=== PATIENT | female | born 1940 | race Caucasian/White ===

== ENCOUNTER 2019-09-02 11:36 | Inpatient (IN) | payer MEDICARE, SELFPAY ==
[2019-09-02] VITALS (29 sets, daily range): BP systolic 112–175; BP diastolic 62–95; PULSE 78–108; RESP 16–29; TEMP 36.1–37.5; O2SAT 74–100; BMI 64.1
--- NOTE | ~2019-09-02 | XR_ITS ---
EXAMINATION: XR chest 1V portable EXAM DATE: 09/02/2019 12:17 INDICATION: Shortness of breath, cough, wheezing. TECHNIQUE: Portable AP frontal chest x-ray was obtained. There is no prior study for comparison. FINDINGS: There is cardiomegaly and congestion. Rather extensive abnormal reticulation, appearance mo st consistent with pulmonary edema. Clinical correlation for possible CHF exacerbation. Small pleural effusions. Pneumonia not excludable. No pneumothorax. There are bony degenerative changes. IMPRESSION: 1. Findings suspicious for CHF exacerbation. 2. Pneumonia not excludable. Reviewed, dictated and finalized at location B.
--- NOTE | ~2019-09-02 | US_ITS ---
EXAMINATION:US venous doppler LE BI INDICATION:Leg edema TECHNIQUE: Multiple grayscale, color flow and Doppler images of the lower extremity deep venous syste ms were obtained and reviewed. COMPARISON:No prior studies for comparison. FINDINGS: The common femoral, superficial femoral and popliteal veins demonstrate normal respiratory variation, augmentation and compressibility. Color flow is also seen within the posterior tibial, gr eater saphenous and profunda veins. Peroneal veins not visualized due to body habitus. IMPRESSION: 1: No lower extremity deep venous thrombosis. Reviewed, dictated and finalized at location A.
--- NOTE | 2019-09-02 11:47 | ECG_ITS ---
Measurements Intervals [place] Rate: 103 P: 66 LA: 127 QRS: 68 QRSD: 88 T: 44 QT: 315 QTc: 414 Interpretive Statements SINUS TACHYCARDIA DELAYED PRECORDIAL R/S TRANSITION BASELINE WANDER- I, II, AVR, AVL, AVF ABNORMAL ECG Electronically Signed On 09-02-2019 12:08:20 CDT by Nick Arreola D.O.
[2019-09-02 12:11] LABS: Basophils Percent Auto 0.4 % (0.2-1.2); Eosinophils Absolute Auto 0.4 K/mm3 (0-0.3); Eosinophils Percent Auto 3.8 % (0-4.4); Hematocrit 36.4 % (37.0-47.0); Hemoglobin 10.4 g/dL (12.0-15.0); Immature Granulocyte Absolute 0.05 K/mm3 (0.00-0.031); Immature Granulocyte Percent A 0.5 % (0-0.5); Lymphocytes Absolute Auto 0.98 K/mm3 (0.9-3.2); Lymphocytes Percent Auto 9.8 % (18.3-44.2); Mean Corpuscular HGB Conc 28.6 g/dl (32-36); Mean Platelet Volume 9.3 fl (7.4-10.4); Monocytes Absolute Auto 0.7 K/mm3 (0.1-0.6); Monocytes Percent Auto 6.5 % (2.6-8.5); Neutrophils Absolute Auto 7.9 K/mm3 (1.3-6.7); Nucleated Red Blood Cells Absolute Auto 0.1 K/mm3 (0.0-0.012); Nucleated Red Blood Cells Perc 0.8 % (0.0-0.2); Platelet Count Result 306 k/mm3 (150-375); Red Cell Distribution Width 18.1 % (11.5-14.5)
[2019-09-02 12:20] LABS: Lactic Acid Reflex 1.7 mmol/L (0.7-2.1)
[2019-09-02 12:23] LABS: Hypochromasia 1+ (NORMAL); Platelet Estimate Adequate (Adequate)
[2019-09-02 12:24] LABS: Anisocytosis 1+ (NORMAL); Stomatocytes 1+ (NORMAL)
[2019-09-02 12:28] LABS: Blood Urea Nitrogen 19 mg/dL (7-17); Calcium 8.6 mg/dL (8.4-10.2); Carbon Dioxide 37 mmol/L (22-30); Chloride 94 mmol/L (98-107); Estimated Glomerular Filt Rate > 60; Glucose 122 mg/dL (65-105); Potassium 5.3 mmol/L (3.4-5.0); Sodium 137 mmol/L (137-145)
[2019-09-02 12:29] LABS: NT Pro B Type Natriuretic Pept 6080 PG/ML (5-100)
[2019-09-02 12:35] LABS: Troponin I 0.085 ng/mL (0.000-0.034)
[2019-09-02] MEDS: FUROSEMIDE INJ 40 MG/4 ML VIAL IV PUSH ×2 (12:55→20:56)
--- NOTE | 2019-09-02 14:07 | ED.SOB ---
HPI - SOB/Dyspnea General Chief Complaint: Shortness of Breath/Dyspnea Stated Complaint: SOB Time Seen by Provider: 09/02/19 11:43 History of Present Illness HPI Narrative: Patient is a 78-year-old female who presents the ER with shortness of breath. Found to be hypoxic by EMS and 74% on room air. Placed on nasal cannula is doing better. She no longer feels short of breath. Patient has history of COPD and has been using breathing treatments without improvement. Patient is also on diuretics, reports compliance, no new swelling in her legs. Recently diagnosed with cellulitis in her left lower extremity which is been treated and she is wearing wraps. Sees Dr. Skip Addison heart and vascular. Known aortic valve issues. Related Data Home Medications Medication Instructions Recorded Confirmed Multi-Tong 09/02/19 [id number]-copper-kathi tablet PO 09/02/19 carvedilol 12.5 mg PO Q12H 09/02/19 duloxetine 30 mg PO DAILY 09/02/19 enalapril maleate 2.5 mg PO DAILY 09/02/19 furosemide 40 mg PO DAILY 09/02/19 glucosamine-chondroitin [Osteo tablet 09/02/19 Bi-Flex] hydrocodone-acetaminophen [[place]] 1 tablet PO Q6H PRN 09/02/19 polysaccharide iron complex mg 09/02/19 [Ferrex 150] Allergies Allergy/AdvReac Type Severity Reaction Status Date / Time pregabalin [From Lyrica] Allergy Unknown Verified 09/02/19 11:45 Sulfa (Sulfonamide Allergy Unknown Verified 09/02/19 11:45 Antibiotics) phenytoin [From Dilantin] AdvReac Unknown Verified 09/02/19 11:45 Review of Systems Review of Systems: All systems reviewed & are unremarkable except as noted in HPI and below Constitutional: Constitutional: Denies chills, Denies fatigue and Denies fever(s) Cardiovascular: Cardiovascular: Denies chest pain and Denies rapid heart rate Respiratory: Respiratory: Reports cough (Chronic), Reports dyspnea and Reports wheezing PMFSH Past Medical History Medical History (Updated 09/02/19 @ 14:50 by Blue Bryan MD) Aortic stenosis Brain aneurysm History of congestive heart failure Hypertension Surgical History Surgical History (Updated 09/02/19 @ 14:47 by Blue Bryan MD) H/O craniotomy Social History Social History (Updated 09/02/19 @ 14:47 by Blue Bryan MD) Smoking status: Never smoker Exam Narrative: Exam Narrative: GENERAL: Chronically ill-appearing, obese, and in no acute distress. HEAD: Normocephalic, atraumatic. ENT: Mucous membranes moist. CHEST: Mixed rales and wheezing with mild respiratory distress. HEART: Regular rate and rhythm. Normal peripheral pulses. ABDOMEN: Soft, nontender, nondistended. EXTREMITIES: Normal range of motion. Chronic/firm edema. SKIN: Warm, dry, no rash. NEURO: focal deficits. Alert and oriented x3. Course Course Emergency Course: Lasix for diuresis. Tolerating nasal cannula oxygen. Admit to hospitalist service. Vital Signs Vital signs: Vital Signs Temperature 99.5 F 09/02/19 11:32 Pulse Rate 107 H 09/02/19 11:32 Respiratory Rate 28 H 09/02/19 11:32 Pulse Oximetry 74 L 09/02/19 11:32 Temperature 99.5 F 09/02/19 11:43 Pulse Rate 105 H 09/02/19 12:55 Respiratory Rate 17 09/02/19 12:55 Blood Pressure 131/81 09/02/19 12:52 Pulse Oximetry 99 09/02/19 12:55 MDM - SOB/Dyspnea Lab Data Result diagrams: 09/02/19 11:53 09/02/19 11:53 Labs: Lab Results 09/02/19 09/02/19 09/02/19 Range/Units 11:53 11:53 11:53 WBC 10.0 (4.5-10.0) K/mm3 RBC 4.00 L (4.2-5.4) M/mm3 Hgb 10.4 L (12.0-15.0) g/dL Hct 36.4 L (37.0-47.0) % MCV 91.0 (80-100) fl MCH 26.0 (26-34) pg MCHC 28.6 L (32-36) g/dl RDW 18.1 H (11.5-14.5) % Plt Count 306 (150-375) k/mm3 MPV 9.3 (7.4-10.4) fl Immature Gran % (Auto) 0.5 (0-0.5) % Neut % (Auto) 79.0 H (45.5-73.1) % Lymph % (Auto) 9.8 L (18.3-44.2) % [place] % (Auto) 6.5 (2.6-8.5) % Eos % (Auto
--- NOTE | 2019-09-02 17:32 | PC.NURSE ---
dinner tray ordered by this RN,patient's room still not room cleaned in IMU
--- NOTE | 2019-09-02 18:12 | PC.NURSE ---
Unable to obtain 3 hour trop prior to transfer to IMU with 4x attempts, lab called.
[2019-09-02 19:11] LABS: Troponin I 0.095 ng/mL (0.000-0.034)
--- NOTE | 2019-09-02 19:29 | ADMIMU ---
This patient, Dasia Hernandez, was admitted to IMU status, and placed in IMU Room 202-01 on 09/02/19 @ 1817. Patient/family oriented to hospital policies and general routines including ID bracelet, bed and alarms, visiting hours, pain management, procedures, bathroom and other care routines, personal items, smoking policy, room service/diet, and visiting hours. Valuables list has been completed. Information on how to activate the Rapid Response Team has been discussed. Patient/Family are encouraged to report perceived risks to care and to ask questions if they do not understand what they are told or what they should do.
--- NOTE | 2019-09-02 19:33 | PC.NURSE ---
Patient to floor at 1817 via stretcher. Oxygen at 6L and monitor intact. Wound photos taken on admission. Patient alert and oriented. Lungs sounds diminished throughout. Bowel sounds present in all quadrants. IV's x2 intact. Patient SR on monitor. Patient denies complaints at this time, will continue to monitor.
[2019-09-02] MEDS: ALBUTEROL SULFATE NEB 2.5 MG/0.5 ML INH 5 MG INHALATION (19:38)
[2019-09-02] MEDS: IPRATROPIUM BR 0.02% INH SOLN 0.5 MG/2.5 ML VIAL INHALATION (19:39)
[2019-09-02 21:04] LABS: Glucose Point of Care 151 (65-105)
[2019-09-02 21:05] LABS: Alveolar/Arterial O2 Gradient 41.4 mmHg; Base Excess ABG 8.5 mEq/l (+/-2.0); Carboxyhemoglobin 0.3 % THb (0-2.0); Fractional Inspired Oxygen 36 %; HCO3 ABG 38.4 mEq/l (22.0-26.0); Methemoglobin ABG 0.6 %THb (0-1.5); Oxyhemoglobin 96.1 % THb (90.0-100.0); PO2 ABG 110.5 mmHg (80.0-100.0); PO2 FiO2 Ratio Arterial Blood 3.07 %
[2019-09-02 21:07] LABS: Device NASAL CANNULA; Modified Allen's Test Pass; PCO2 ABG 90.3 mmHg (35.0-45.0); Site Drawn RIGHT RADIAL; pH ABG 7.247 (7.350-7.450)
[2019-09-02 21:08] LABS: Troponin I 0.088 ng/mL (0.000-0.034)
[2019-09-02 22:56] LABS: Alveolar/Arterial O2 Gradient 40.7 mmHg; Base Excess ABG 9.5 mEq/l (+/-2.0); Carboxyhemoglobin 0.2 % THb (0-2.0); Fractional Inspired Oxygen 30 %; HCO3 ABG 38.4 mEq/l (22.0-26.0); Methemoglobin ABG 0.6 %THb (0-1.5); Modified Allen's Test Pass; Oxygen Saturation ABG 93.4 % (95.0-100.0); Oxyhemoglobin 93.1 % THb (90.0-100.0); PCO2 ABG 81.3 mmHg (35.0-45.0); PO2 ABG 77.7 mmHg (80.0-100.0); PO2 FiO2 Ratio Arterial Blood 2.59 %; Reduced Hemoglobin 6.1 %THb (0-5.0); Site Drawn LEFT RADIAL; Total Hemoglobin 10.6 g/dL (12.0-18.0); pH ABG 7.292 (7.350-7.450)
[2019-09-02 22:57] LABS: Device NON-INVASIVE VENT
[2019-09-02 22:58] LABS: Non-Invasive Inspiratory Pressure 16 CMH2O; Non-Invasive Vent Rate 18 /MIN
[2019-09-02 22:59] LABS: Non-Invasive Expiratory Pressure 6 CMH2O
--- NOTE | 2019-09-02 23:20 | PM.IMHP ---
H&P: HPI History of Present Illness Chief complaint: Shortness of breath. Narrative: Dasia Hernandze is a 78-year-old female with multiple medical problems to include morbid obesity, congestive heart failure, hypertension, aortic valve stenosis, hypothyroidism, anemia, and COPD who presented to the emergency department earlier this afternoon via EMS from home for evaluation of shortness of breath. She is a resident at [facility] in [place], and EMS was called as the patient has had progressive dyspnea on lesser and lesser exertion over the past 2 days, worse overnight. On their arrival, she was hypoxic and speaking in 1 to 2 word sentences, reportedly in a tripod position with pursed lipped breathing and struggling to breathe. She was placed on a non-rebreather and was given Decadron. It is at that time that she reportedly requested to come to [facility] although she has never been seen at this facility and gets all of her care in [place] and at [facility]. That hospital was bypassed (although it was a closer facility) despite her respiratory distress and an SpO2 in the 70s, and she was brought here. At the time of my evaluation she is very somnolent and a recent blood gas demonstrates hypercarbia. From what limited information that I can gather from her, she has no history of obstructive sleep apnea but it sounds as though she will frequently become confused in the middle of the night and it takes her a while ?come to? in the morning. After she had been on BiPAP for some time, she became a bit more awake and was able to tell me that she was recently diagnosed with left lower extremity cellulitis for which she completed a course of antibiotics. She also tells me that she has COPD and despite using her breathing treatments the past day or so, she has become increasingly short of breath. It sounds as though she has chronic orthopnea, which is unchanged. She frequently has a cough which is nonproductive. She has not had fever, chills, or sweats. She denies chest pain, pleuritic pain, and palpitations. No nausea or vomiting. No calf pain or tenderness. No history of venous thromboembolism. Review of Systems Review of Systems: Narrative: Twelve systems were reviewed with pertinent positives and negatives as per HPI. Somewhat limited given her somnolence and hypercarbia, but except as documented all other systems were reviewed and are negative. [facility] Past Medical History Medical History (Updated 09/02/19 @ 23:59 by Nadine Ross PA-C) Aortic stenosis Reportedly she has severe aortic stenosis and is followed by a warehouse traffic supervisor in [place]. Apparently she has been deemed not a surgical candidate at this time due to her other medical conditions. Brain aneurysm Chronic obstructive pulmonary disease Congestive heart failure Depression with anxiety Hypertension Hypothyroidism Iron deficiency anemia Morbid obesity Surgical History Surgical History (Updated 09/02/19 @ 23:47 by Nadine Ross PA-C) History of craniotomy Either for an aneurysm or AVM, was difficult to understand what she was saying. History of hysterectomy Family History Family History Father Acute myocardial infarction Social History Social History (Updated 09/02/19 @ 23:48 by Nadine Ross PA-C) Social History: The patient lives at [facility] in [place]. 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 She used to ?smoke a lot? and quit several years ago. She denies alcohol and illicit substance use. Her son, Bal Hernandez, is her surrogate decision maker. She wishes to be a full code. Substance use type: unknown Gender identity (if verbalized by the patient): Female Sexual Orientation (if Verbalized by the Patient): Straight or Heterosexual Spiritual care concerns: No Meds Home Medications and Allergies Home Medications Medicati
[2019-09-02 23:51] LABS: Alanine Aminotransferase 26 U/L (4-35); Albumin Level 3.3 g/dL (3.5-5.1); Alkaline Phosphatase 64 U/L (38-126); Aspartate Amino Transferase 34 U/L (14-36); Bilirubin,Total 0.2 mg/dL (0.2-1.3); Blood Urea Nitrogen 22 mg/dL (7-17); Calcium 8.2 mg/dL (8.4-10.2); Carbon Dioxide 36 mmol/L (22-30); Chloride 95 mmol/L (98-107); Estimated Glomerular Filt Rate 54; Glucose 137 mg/dL (65-105); Potassium 5.1 mmol/L (3.4-5.0); Sodium 136 mmol/L (137-145)
[2019-09-03] VITALS (31 sets, daily range): BP systolic 103–127; BP diastolic 41–71; PULSE 71–110; RESP 14–28; TEMP 35.7–36.7; O2SAT 91–99
--- NOTE | 2019-09-03 | ECHO_ITS ---
Patient Info Name: Dasia Hernandez Age: 78 years : 1940 Gender: Female Ht: 56 in Wt: 285 lbs BSA: 2.37 m2 HR: 101 bpm BP: 127 / 65 mmHg Heart Rhythm: Tachycardia Technical Quality: Fair Exam Date: 09/03/2019 1:22 PM Exam Location: [facility] Pulmonary Patient Status: Inpatient Admit Date: 09/03/2019 Staff Ordering Physician: Lidia Sarkar PA-C Print Developer: Ramo Hanson RDCS Attending Provider: Lidia Sarkar PA-C Referring Physician: Mello LUNA; Exam Type: CA echo dop color flow w con Study Info Indications I35.0 - Nonrheumatic aortic (valve) stenosis Complete two-dimensional, color flow and Doppler transthoracic echocardiogram is performed with contrast to opacify the left ventricle and to improve the deliniation of the left ventricle endocardial borders. Contrast/Agitated Saline Contrast/Ag. Saline: Definity Amount: 2.00 ml Administered By: Lennie Gillespie RN Existing IV Access: Yes History/Risk Factors Severe ; SOB/NOYOLA, CHF exacerbation, COPD exacerbation, HTN, acute respiratory failure, edema. Summary 1. Technically difficult study, poor image quality. Normal LV size, mild LVH, hyperdynamic LV systolic function, EF more than 70%; grade 1 diastolic dysfunction. Valves are not well visualized. Mitral annular calcification, trivial MR. Aortic valve is not well visualized. Moderate-severe aortic stenosis, valve area 1-1.1 cm2 by Doppler;Vmax 4 m/sec, peak gradient 64, mean gradient 34 mmHg. Tricuspid valve not well visualized. Sinus tachycardia during the study. If clinically appropriate, consider transesophageal echocardiogram to re-evaluate aortic valve anatomy. Left Ventricle Left ventricular chamber dimension is normal. Left ventricular systolic function is normal, estimated at >70%. There is mildly increased left ventricular wall thickness. Left ventricular septal wall motion is normal. The left ventricular diastolic function is grade I diastolic dysfunction. Right Ventricle Right ventricular chamber dimension is normal. Right ventricular systolic function is normal. Left Atria Left atrial chamber dimension is normal. Right Atria Right atrial chamber dimension is normal. Aortic Valve There is moderate to severe aortic valve stenosis with a peak velocity of 402.93 cm/s, mean gradient of 34 mmHg, and aortic valve area of 1.10 cm2. There is no aortic valve regurgitation. Pulmonic Valve The pulmonic valve is not well visualized. Mitral Valve There is no mitral valve stenosis. There is no mitral valve regurgitation. The mitral valve annulus is mildly calcified. Tricuspid Valve The tricuspid valve leaflets are not well visualized. No pulmonary hypertension, estimated pulmonary arterial systolic pressure is Empty. Pericardium/Pleural The pericardium appears epicardial fat pad. There is no pericardial effusion. Inferior Vena Cava Normal inferior vena cava with >50% collapse upon inspiration consistent with Empty right atrial pressure, 5 mmHg. Aorta The aortic root size at the sinus of Valsalva is normal. The prox ascending aorta size is normal. Left Ventricular Outflow Tract Name Value Normal LVOT 2D
[2019-09-03] MEDS: methylPREDNISolone SOD SUCC 125 MG VIAL 60 MG IV PUSH ×5 (00:12→23:31)
[2019-09-03 00:49] LABS: Alveolar/Arterial O2 Gradient 47.4 mmHg; Base Excess ABG 10.8 mEq/l (+/-2.0); Fractional Inspired Oxygen 30 %; HCO3 ABG 39.3 mEq/l (22.0-26.0); Oxygen Content ABG 14.1 %vol (16.0-22.0); Oxygen Saturation ABG 93.2 % (95.0-100.0); Oxyhemoglobin 93.4 % THb (90.0-100.0); Total Hemoglobin 10.7 g/dL (12.0-18.0); pH ABG 7.321 (7.350-7.450)
[2019-09-03 00:52] LABS: Device NON-INVASIVE VENT; Modified Allen's Test Pass; PCO2 ABG 77.9 mmHg (35.0-45.0); Site Drawn RIGHT RADIAL
[2019-09-03 00:53] LABS: Non-Invasive Expiratory Pressure 6 CMH2O; Non-Invasive Inspiratory Pressure 18 CMH2O; Non-Invasive Vent Rate 20 /MIN
[2019-09-03] MEDS: ALBUTEROL SULFATE NEB 2.5 MG/0.5 ML INH 5 MG INHALATION ×4 (01:20→19:22)
[2019-09-03] MEDS: IPRATROPIUM BR 0.02% INH SOLN 0.5 MG/2.5 ML VIAL INHALATION ×4 (01:21→19:23)
[2019-09-03 04:48] LABS: Hematocrit 33.5 % (37.0-47.0); Hemoglobin 9.5 g/dL (12.0-15.0); Mean Corpuscular HGB Conc 28.4 g/dl (32-36); Mean Corpuscular Hemoglobin 26.1 pg (26-34); Mean Platelet Volume 9.4 fl (7.4-10.4); Platelet Count Result 251 k/mm3 (150-375); Red Blood Count 3.64 M/mm3 (4.2-5.4); White Blood Count 8.7 K/mm3 (4.5-10.0)
[2019-09-03 05:02] LABS: Blood Urea Nitrogen 22 mg/dL (7-17); Calcium 8.2 mg/dL (8.4-10.2); Carbon Dioxide 37 mmol/L (22-30); Chloride 95 mmol/L (98-107); Estimated Glomerular Filt Rate 54; Glucose 142 mg/dL (65-105); Potassium 4.8 mmol/L (3.4-5.0); Sodium 136 mmol/L (137-145)
[2019-09-03 09:32] LABS: Base Excess ABG 10.6 mEq/l (+/-2.0); Carboxyhemoglobin 0.3 % THb (0-2.0); Fractional Inspired Oxygen 30 %; HCO3 ABG 37.6 mEq/l (22.0-26.0); Methemoglobin ABG 0.4 %THb (0-1.5); Oxygen Content ABG 14.8 %vol (16.0-22.0); Oxygen Saturation ABG 93.7 % (95.0-100.0); Oxyhemoglobin 93.6 % THb (90.0-100.0); PO2 ABG 71.4 mmHg (80.0-100.0); PO2 FiO2 Ratio Arterial Blood 2.38 %; Reduced Hemoglobin 5.7 %THb (0-5.0); Total Hemoglobin 11.2 g/dL (12.0-18.0); pH ABG 7.391 (7.350-7.450)
[2019-09-03 09:33] LABS: Device NON-INVASIVE VENT; Modified Allen's Test Pass; PCO2 ABG 63.4 mmHg (35.0-45.0); Site Drawn RIGHT RADIAL
[2019-09-03 09:34] LABS: Non-Invasive Expiratory Pressure 6 CMH2O; Non-Invasive Inspiratory Pressure 18 CMH2O; Non-Invasive Vent Rate 20 /MIN
[2019-09-03] MEDS: FUROSEMIDE INJ 40 MG/4 ML VIAL IV PUSH ×2 (10:00→21:08)
--- NOTE | 2019-09-03 11:00 | PC.NURSE ---
Okay per provider to remove Bipap at this time. Patient to wear Bipap at night and as needed.
[2019-09-03] MEDS: ENALAPRIL MALEATE 2.5 MG TABLET PO (11:08)
[2019-09-03] MEDS: POLYSACCHARIDE IRON COMPLEX 150 MG CAPSULE PO (11:08)
[2019-09-03] MEDS: DULoxetine HCL 30 MG CAPSULE.DR PO (11:08)
[2019-09-03] MEDS: carvediloL 12.5 MG TABLET PO ×2 (11:08→21:08)
[2019-09-03] MEDS: LEVOTHYROXINE SODIUM 50 MCG TABLET PO (11:08)
[2019-09-03] MEDS: ACIDOPHILUS/BULGARICUS CHEWABLE TABLET 1 TABLET PO ×2 (11:09→18:17)
--- NOTE | 2019-09-03 11:19 | PM.IMPN ---
Progress Note: A&P Assessment and Plan (1) Acute respiratory failure with hypoxia and hypercarbia: Code(s): J96.01 - Acute respiratory failure with hypoxia; J96.02 - Acute respiratory failure with hypercapnia Status: Acute Assessment and Plan: ABG was ordered as the pt was somnolent and revealed respiratory acidosis with pH 7.247 and pCO2 90.3. She was placed on BiPAP overnight and repeat ABG today does show improvement with pH 7.931 but pCO2 is still elevated at 63.4. She likely has chronic CO2 retention although I have no records for review. Plan to continue BiPAP today and overnight. Acute respiratory failure is likely secondary to severe aortic stenosis, CHF exacerbation, COPD exacerbation, untreated ANNE (stopped using CPAP 2-3 years ago), and obesity hypoventilation syndrome. She will need a home oxygen evaluation and anpea link prior to discharge. Plan to order echo for further evaluation. (2) Acute exacerbation of congestive heart failure: Qualifiers: Heart failure type: unspecified Qualified Code(s): I50.9 - Heart failure, unspecified Code(s): I50.9 - Heart failure, unspecified Status: Acute Assessment and Plan: She endorsed progressively worsening dyspnea over the past three days with increased lower extremity swelling. CXR revealed cardiomegaly with congestion, suspicious for pulmonary edema with small pleural effusions. She is currently receiving cautious diuresis given her hx of aortic stenosis. Continue to monitor volume status closely with I/O and daily weights. Continue IV lasix. Will order echocardiogram as we have not received her records. Continue sodium restriction <2g/day. Continue to monitor. (3) COPD exacerbation: Code(s): J44.1 - Chronic obstructive pulmonary disease with (acute) exacerbation Status: Acute Assessment and Plan: She has evidence of wheezing to lung auscultation. ABG reveals hypercarbia and she likely has a component of chronic hypercarbia although I have no records for review at this time. Continue scheduled nebulized bronchodilators Q6HR. Continue systemic glucocorticoid therapy with Solu-medrol. Begin augmentin. Continue BiPAP for now. (4) Elevated troponin: Code(s): R79.89 - Other specified abnormal findings of blood chemistry Status: Acute Assessment and Plan: Troponins have remained flat on are not indicative of acute coronary syndrome. These are elevated in the setting of respiratory failure with hypoxia and hypercarbia as well as CHF exacerbation. Will repeat echocardiogram since records are still pending. (5) Hypertension: Qualifiers: Hypertension type: essential hypertension Qualified Code(s): I10 - Essential (primary) hypertension Code(s): I10 - Essential (primary) hypertension Status: Acute Assessment and Plan: Blood pressures were reviewed and are well-controlled today. Continue carvedilol, enalapril, and furosemide. Continue to monitor. (6) Aortic stenosis: Qualifiers: Cardiac valve disease etiology: etiology unspecified Qualified Code(s): I35.0 - Nonrheumatic aortic (valve) stenosis Code(s): I35.0 - Nonrheumatic aortic (valve) stenosis Status: Acute Assessment and Plan: The patient reports a hx of severe and has been told she needs surgical repair but is too high risk at this time. Records were requested but are still pending. Plan to repeat echo for further evaluation. (7) Hypothyroidism: Qualifiers: Hypothyroidism type: unspecified Qualified Code(s): E03.9 - Hypothyroidism, unspecified Code(s): E03.9 - Hypothyroidism, unspecified Status: Chronic Assessment and Plan: TSH was 1.24. Continue levothyroxine and liothyronine. (8) Iron deficiency anemia: Qualifiers: Iron deficiency anemia type: unspecified iron deficiency Qualified Code(s): D50.9 - Ir
[2019-09-03] MEDS: PERFLUTREN LIPID MICROSPHERES 1.5 ML VIAL DILUTED TO 10 ML TOTAL VOLUME IV PUSH (13:51)
[2019-09-03] MEDS: BETAMETHASONE/CLOTRIMAZOLE CR 15 GM TUBE 1 APPLIC TOPICAL ×2 (14:07→21:08)
[2019-09-03] MEDS: FLUCONAZOLE 100 MG TABLET 200 MG PO (14:08)
[2019-09-03 15:15] LABS: Add Urine Microscopic? YES; Appearance Urine Clear (Clear); Bilirubin Urine Negative (Negative); Blood Urine 2+ (Negative); Color Urine Straw (Yellow); Glucose Urine UA Negative (Negative); Ketones Urine Negative (Negative); Leukocyte Esterase Ur Negative LEU/UL (Negative); Mucus Urine Rare /lpf; Nitrate Urine Negative (Negative); Protein Urine Negative (Negative); Squamous Epithelial Cell Urine Moderate /hpf (Few); Urobilinogen Urine Negative mg/dL (<2.0); WBC Urine 0-3 /hpf
[2019-09-03 15:30] LABS: Alveolar/Arterial O2 Gradient 61.7 mmHg; Base Excess ABG 12.2 mEq/l (+/-2.0); Fractional Inspired Oxygen 30 %; HCO3 ABG 39.4 mEq/l (22.0-26.0); Methemoglobin ABG 0.5 %THb (0-1.5); Oxygen Content ABG 13.9 %vol (16.0-22.0); Oxyhemoglobin 93.8 % THb (90.0-100.0); PO2 ABG 73.4 mmHg (80.0-100.0); PO2 FiO2 Ratio Arterial Blood 2.45 %; Reduced Hemoglobin 5.7 %THb (0-5.0); Total Hemoglobin 10.5 g/dL (12.0-18.0); pH ABG 7.387 (7.350-7.450)
[2019-09-03 15:32] LABS: Device NON-INVASIVE VENT; Modified Allen's Test Pass; Non-Invasive Vent Rate 20 /MIN; PCO2 ABG 67.1 mmHg (35.0-45.0); Site Drawn LEFT RADIAL
[2019-09-03 15:33] LABS: Non-Invasive Expiratory Pressure 6 CMH2O; Non-Invasive Inspiratory Pressure 18 CMH2O
--- NOTE | 2019-09-03 16:26 | PM.CNPUL ---
Assessment and Plan Assessment and plan (1) Acute respiratory failure with hypoxia and hypercarbia: Code(s): J96.01 - Acute respiratory failure with hypoxia; J96.02 - Acute respiratory failure with hypercapnia Status: Acute Assessment and Plan: She has not been using O2 at home, was not on PAP therapy recently. She Has multifactorial causes due to acute on chronic hypercapnic hypoxemic respiratory failure. She has tried BiPAP here in the hospital, it has had marginal improvement as far as her gas exchange and her tolerance. This patient has acute and chronic hypercapnic hypoxemic respiratory failure and COPD. I am ordering a trilogy for nocturnal use with all episodes of sleep and daytime use as needed. BiPAP has been considered and ruled out. (2) Aortic stenosis: Qualifiers: Cardiac valve disease etiology: etiology unspecified Qualified Code(s): I35.0 - Nonrheumatic aortic (valve) stenosis Code(s): I35.0 - Nonrheumatic aortic (valve) stenosis Status: Acute Assessment and Plan: She has been evaluated for a TAVR, was told last year that she was at increased risk due to her co-morbidities; since the nshe has become immobile. She has not walked since Apr. She was caught in a NH when the pandemic erupted, and she was trapped in a room with meals, but no interaction, no therapy, and has become more debilitated. (3) Acute exacerbation of congestive heart failure: Qualifiers: Heart failure type: unspecified Qualified Code(s): I50.9 - Heart failure, unspecified Code(s): I50.9 - Heart failure, unspecified Status: Acute Assessment and Plan: Due to in part to aortic stenosis, (4) COPD exacerbation: Code(s): J44.1 - Chronic obstructive pulmonary disease with (acute) exacerbation Status: Acute Assessment and Plan: with prior history of tobacco use, has not had testing recently. (5) ANNE and COPD overlap syndrome: Code(s): G47.33 - Obstructive sleep apnea (adult) (pediatric); J44.9 - Chronic obstructive pulmonary disease, unspecified Status: Acute Assessment and Plan: She has obstructive sleep apnea, has not used her device in a long time, so long that she cannot remember when it was last working. She was tested and treated out of her chargeback analyst's office. History of Present Illness History of Present Illness Consult date: 09/08/19 Requesting physician: Lidia Sarkar PA-C Reason for consult: other (respiratory failure) Chief complaint: Shortness of breath. Narrative: NEW CONSULT: Thank you for the consult. Her daughter Ale was present during the consultation. This patient has acute and chronic hypercapnic hypoxemic respiratory failure and COPD. I am ordering a trilogy for nocturnal use with all episodes of sleep and daytime use as needed. BiPAP has been considered and ruled out. Dasia Hernandez is a 78 yo female admitted 09/01 with increased shortness of breath, was discharged from [facility] last Sunday after admission for similar complaints; including increased shortness of breath. she has been staying at [facility] her son skilled nursing in [place]. She was increasingly short of breath and hypoxic only able to speak 1 or 2 words at a time. She was placed on a non-rebreather and received Decadron. She requested to come to [facility] instead of [facility]. On arrival her pO2 ws low, she could speak only 1-2 words due to dyspnea, and pCO2 was elevated, improved marginally with use of BiPAP. She often has night time confusion at home. She has been treated for cellulitis
[2019-09-03] MEDS: AMOXICILLIN/CLAVULANATE K 500-125 MG TAB 1 TABLET PO (21:07)
[2019-09-03] MEDS: TOLNAFTATE 1% POWDER 45 GM BTL 1 APPLIC TOPICAL (21:08)
[2019-09-04] VITALS (25 sets, daily range): BP systolic 97–137; BP diastolic 44–63; PULSE 62–101; RESP 16–24; TEMP 36.4–37; O2SAT 92–98; BMI 11.0
[2019-09-04] MEDS: IPRATROPIUM BR 0.02% INH SOLN 0.5 MG/2.5 ML VIAL INHALATION ×4 (02:10→20:26)
[2019-09-04] MEDS: ALBUTEROL SULFATE NEB 2.5 MG/0.5 ML INH 5 MG INHALATION ×4 (02:10→20:25)
[2019-09-04 04:28] LABS: Basophils Percent Auto 0.1 % (0.2-1.2); Hematocrit 32.4 % (37.0-47.0); Hemoglobin 9.1 g/dL (12.0-15.0); Immature Granulocyte Absolute 0.08 K/mm3 (0.00-0.031); Immature Granulocyte Percent A 0.8 % (0-0.5); Lymphocytes Absolute Auto 0.48 K/mm3 (0.9-3.2); Lymphocytes Percent Auto 4.8 % (18.3-44.2); Mean Corpuscular HGB Conc 28.1 g/dl (32-36); Mean Corpuscular Hemoglobin 25.9 pg (26-34); Mean Platelet Volume 9.8 fl (7.4-10.4); Monocytes Absolute Auto 0.2 K/mm3 (0.1-0.6); Monocytes Percent Auto 1.6 % (2.6-8.5); Neutrophils Absolute Auto 9.2 K/mm3 (1.3-6.7); Neutrophils Percent Auto 92.7 % (45.5-73.1); Nucleated Red Blood Cells Perc 0.2 % (0.0-0.2); Platelet Count Result 242 k/mm3 (150-375); Red Blood Count 3.52 M/mm3 (4.2-5.4); Red Cell Distribution Width 18.2 % (11.5-14.5)
[2019-09-04 04:36] LABS: Hemoglobin A1C 5.9 % (<5.7)
[2019-09-04 04:43] LABS: Alanine Aminotransferase 25 U/L (4-35); Albumin Level 3.4 g/dL (3.5-5.1); Alkaline Phosphatase 63 U/L (38-126); Aspartate Amino Transferase 27 U/L (14-36); Bilirubin,Total < 0.1 mg/dL (0.2-1.3); Blood Urea Nitrogen 29 mg/dL (7-17); Calcium 7.8 mg/dL (8.4-10.2); Carbon Dioxide 39 mmol/L (22-30); Chloride 92 mmol/L (98-107); Estimated Glomerular Filt Rate 43; Glucose 155 mg/dL (65-105); Magnesium 2.2 mg/dL (1.6-2.3); Potassium 4.6 mmol/L (3.4-5.0); Sodium 136 mmol/L (137-145)
[2019-09-04 04:53] LABS: Macrocytosis 1+ (NORMAL); Platelet Estimate Adequate (Adequate)
[2019-09-04 04:54] LABS: Stomatocytes 1+ (NORMAL)
[2019-09-04] MEDS: methylPREDNISolone SOD SUCC 125 MG VIAL 60 MG IV PUSH ×2 (05:38→20:58)
[2019-09-04] MEDS: AMOXICILLIN/CLAVULANATE K 500-125 MG TAB 1 TABLET PO ×3 (05:38→20:58)
[2019-09-04] MEDS: LEVOTHYROXINE SODIUM 50 MCG TABLET PO (05:39)
[2019-09-04] MEDS: FUROSEMIDE 40 MG TABLET PO (09:05)
[2019-09-04] MEDS: POLYSACCHARIDE IRON COMPLEX 150 MG CAPSULE PO (09:05)
[2019-09-04] MEDS: DULoxetine HCL 30 MG CAPSULE.DR PO (09:05)
[2019-09-04] MEDS: ENALAPRIL MALEATE 2.5 MG TABLET PO (09:05)
[2019-09-04] MEDS: LIOTHYRONINE SODIUM 5 MCG TABLET PO (09:05)
[2019-09-04] MEDS: ACIDOPHILUS/BULGARICUS CHEWABLE TABLET 1 TABLET PO ×2 (09:06→18:14)
[2019-09-04] MEDS: carvediloL 12.5 MG TABLET PO ×2 (09:06→20:58)
[2019-09-04] MEDS: ENOXAPARIN 40 MG/0.4 ML SYRINGE SUB-Q (09:07)
[2019-09-04] MEDS: TOLNAFTATE 1% POWDER 45 GM BTL 1 APPLIC TOPICAL ×2 (09:08→20:57)
[2019-09-04] MEDS: BETAMETHASONE/CLOTRIMAZOLE CR 15 GM TUBE 1 APPLIC TOPICAL ×2 (09:08→20:56)
--- NOTE | 2019-09-04 09:30 | PM.IMPN ---
Progress Note: A&P Assessment and Plan (1) Acute respiratory failure with hypoxia and hypercarbia: Code(s): J96.01 - Acute respiratory failure with hypoxia; J96.02 - Acute respiratory failure with hypercapnia Status: Acute Assessment and Plan: ABG was ordered as the pt was somnolent and revealed respiratory acidosis with pH 7.247 and pCO2 90.3. She was placed on BiPAP. pH normalized to 7.387 with BiPAP therapy. She likely has chronic CO2 retention and is compensating appropriately as she has improved significantly and is no longer dyspneic. She is tolerating nasal cannula well during the day and we will perform a home oxygen evaluation prior to discharge. Her acute on chronic respiratory failure is likely secondary to severe aortic stenosis, CHF exacerbation, COPD exacerbation, untreated ANNE (stopped using CPAP 2-3 years ago), and obesity hypoventilation syndrome. Dr. Hernandez was consulted for further recommendations which are greatly appreciated. I discussed the case with Dr. Hernandez and she may be a candidate for the Trilogy unit. I have placed a consult to respiratory therapy. Plan to continue BiPAP at night and with naps. (2) Acute exacerbation of congestive heart failure: Qualifiers: Heart failure type: unspecified Qualified Code(s): I50.9 - Heart failure, unspecified Code(s): I50.9 - Heart failure, unspecified Status: Acute Assessment and Plan: She endorsed progressively worsening dyspnea over the past three days with increased lower extremity swelling. CXR revealed cardiomegaly with congestion, suspicious for pulmonary edema with small pleural effusions. She is currently receiving cautious diuresis given her hx of aortic stenosis. A gardner was placed 09/03/19 at 16:00 for accurate I/O with reasonable urine output. Cr increased to 1.2 and BUN 29 so I will discontinue IV lasix and resume her PO lasix. I discussed limiting sodium intake as she reported very heavy salt use prior to admission. Continue to monitor volume status closely with I/O and daily weights. Echocardiogram was technically difficult but revealed normal LV size, mild LVH, hyperdynamic LV systolic function with EF >70%, grade 1 diastolic dysfunction, and poor aortic valve visualization with at least moderate-severe . (3) Aortic stenosis: Qualifiers: Cardiac valve disease etiology: etiology unspecified Qualified Code(s): I35.0 - Nonrheumatic aortic (valve) stenosis Code(s): I35.0 - Nonrheumatic aortic (valve) stenosis Status: Acute Assessment and Plan: The patient reports a hx of severe was told she needs surgical repair. Her primary battery service technician is Dr. Rachel and her cardiothoracic surgeon is Dr. Muñoz. She reports that she met with Dr. Muñoz and was told that she is high risk and needed multiple evaluations by other specialists. She reports that she was walking at this time but is no longer ambulatory. Records were requested but are still pending. Repeat echocardiogram was technically difficult but revealed moderate to severe aortic stenosis with valve area 1-1.1cm2, mean gradient 34 mmHg, and peak gradient 64. She is unsure if she would want to proceed with valve replacement in the future and would like to take time to discuss her care goals with her family. She will need to continue follow-up with her battery service technician and cardiothoracic surgeon outpatient. The risks of untreated severe were discussed and she verbalized understanding. (4) COPD exacerbation: Code(s): J44.1 - Chronic obstructive pulmonary disease with (acute) exacerbation Status: Acute Assessment and Plan: She had evidence of wheezing to lung auscultation. ABG reveals hypercarbia and she likely has a component of chronic hypercarbia although I have no records for review at this time. Continue scheduled nebulized bronchodilators Q6HR. Continue systemic glucocorticoid therapy with Solu-medrol and begin taper. Con
--- NOTE | 2019-09-04 12:01 | PCDIET ---
MD consult received. Patient on phone at time of visit and requested revisit at a later time.
--- NOTE | 2019-09-04 13:35 | PCDIET ---
Education completed. See Nutritional Teaching for additional details.
--- NOTE | 2019-09-04 13:37 | PCRCNOTE ---
Trilogy arrangements pending with [facility].
[2019-09-05] VITALS (26 sets, daily range): BP systolic 87–112; BP diastolic 43–51; PULSE 66–110; RESP 12–23; TEMP 35.9–36.9; O2SAT 92–97
[2019-09-05] MEDS: ALBUTEROL SULFATE NEB 2.5 MG/0.5 ML INH 5 MG INHALATION ×4 (02:10→20:18)
[2019-09-05] MEDS: IPRATROPIUM BR 0.02% INH SOLN 0.5 MG/2.5 ML VIAL INHALATION ×4 (02:10→20:18)
[2019-09-05 04:54] LABS: Hematocrit 33.8 % (37.0-47.0); Hemoglobin 9.5 g/dL (12.0-15.0); Mean Corpuscular HGB Conc 28.1 g/dl (32-36); Mean Corpuscular Hemoglobin 26.3 pg (26-34); Mean Corpuscular Volume 93.6 fl (80-100); Mean Platelet Volume 9.8 fl (7.4-10.4); Platelet Count Result 256 k/mm3 (150-375); Red Blood Count 3.61 M/mm3 (4.2-5.4); Red Cell Distribution Width 18.2 % (11.5-14.5); White Blood Count 10.1 K/mm3 (4.5-10.0)
[2019-09-05 05:05] LABS: Blood Urea Nitrogen 36 mg/dL (7-17); Calcium 7.5 mg/dL (8.4-10.2); Carbon Dioxide 38 mmol/L (22-30); Chloride 91 mmol/L (98-107); Estimated Glomerular Filt Rate 48; Glucose 160 mg/dL (65-105); Magnesium 2.3 mg/dL (1.6-2.3); Potassium 4.3 mmol/L (3.4-5.0); Sodium 135 mmol/L (137-145)
[2019-09-05] MEDS: AMOXICILLIN/CLAVULANATE K 500-125 MG TAB 1 TABLET PO ×3 (05:56→21:03)
[2019-09-05] MEDS: LEVOTHYROXINE SODIUM 50 MCG TABLET PO (05:56)
--- NOTE | 2019-09-05 10:51 | PM.IMPN ---
Progress Note: A&P Assessment and Plan (1) Acute respiratory failure with hypoxia and hypercarbia: Code(s): J96.01 - Acute respiratory failure with hypoxia; J96.02 - Acute respiratory failure with hypercapnia Status: Acute Assessment and Plan: ABG was ordered as the pt was somnolent 09/02/19 and revealed respiratory acidosis with pH 7.247 and pCO2 90.3. She was placed on BiPAP. pH normalized to 7.387 with BiPAP therapy. She likely has chronic CO2 retention and is compensating appropriately as she has improved significantly and is no longer dyspneic. She is tolerating 2L per nasal cannula well during the day and we will perform a home oxygen evaluation prior to discharge. Her acute on chronic respiratory failure is likely secondary to severe aortic stenosis, CHF exacerbation, COPD exacerbation, untreated ANNE (stopped using CPAP 2-3 years ago), and obesity hypoventilation syndrome. Dr. Hernandez was consulted for further recommendations which are greatly appreciated. I discussed the case with Dr. Hernandez and she may be a candidate for the Trilogy unit. I have placed a consult to respiratory therapy which is pending. Plan to continue BiPAP at night and with naps. She refused the BiPAP last night and I discussed that BiPAP is necessary if she wants to prevent worsening hypercapnia which could lead to . (2) Acute exacerbation of congestive heart failure: Qualifiers: Heart failure type: unspecified Qualified Code(s): I50.9 - Heart failure, unspecified Code(s): I50.9 - Heart failure, unspecified Status: Acute Assessment and Plan: She endorsed progressively worsening dyspnea over the past three days prior to admission with increased lower extremity swelling. CXR revealed cardiomegaly with congestion, suspicious for pulmonary edema with small pleural effusions. She received IV diuresis with improvement. A gardner was placed 09/03/19 at 16:00 for accurate I/O with good urine output. Cr increased to 1.2 and BUN 29 09/04/19 so I resumed her PO lasix. I discussed limiting sodium intake as she reported very heavy salt use prior to admission. Continue to monitor volume status closely with I/O and daily weights. Echocardiogram was technically difficult but revealed normal LV size, mild LVH, hyperdynamic LV systolic function with EF >70%, grade 1 diastolic dysfunction, and poor aortic valve visualization with at least moderate-severe . Continue to monitor. (3) Aortic stenosis: Qualifiers: Cardiac valve disease etiology: etiology unspecified Qualified Code(s): I35.0 - Nonrheumatic aortic (valve) stenosis Code(s): I35.0 - Nonrheumatic aortic (valve) stenosis Status: Acute Assessment and Plan: The patient reports a hx of severe was told she needs surgical repair. Her primary board of directors is Dr. Rachel and her cardiothoracic surgeon is Dr. Muñoz. She reports that she met with Dr. Muñoz and was told that she is high risk and needed multiple evaluations by other specialists. She reports that she was walking at this time but is no longer ambulatory. Records were requested but are still pending. Repeat echocardiogram was technically difficult but revealed moderate to severe aortic stenosis with valve area 1-1.1cm2, mean gradient 34 mmHg, and peak gradient 64. She is unsure if she would want to proceed with valve replacement in the future and would like to take time to discuss her care goals with her family. She will need to continue follow-up with her board of directors and cardiothoracic surgeon outpatient. The risks of untreated severe were discussed and she verbalized understanding. (4) COPD exacerbation: Code(s): J44.1 - Chronic obstructive pulmonary disease with (acute) exacerbation Status: Acute Assessment and Plan: She had evidence of wheezing to lung auscultation. ABG reveals hypercarbia and she likely has a component of chronic hypercarbia although I have no records
[2019-09-05] MEDS: ENOXAPARIN 40 MG/0.4 ML SYRINGE SUB-Q (10:54)
[2019-09-05] MEDS: FUROSEMIDE 40 MG TABLET PO (10:54)
[2019-09-05] MEDS: DULoxetine HCL 30 MG CAPSULE.DR PO (10:54)
[2019-09-05] MEDS: ACIDOPHILUS/BULGARICUS CHEWABLE TABLET 1 TABLET PO ×2 (10:54→16:58)
[2019-09-05] MEDS: POLYSACCHARIDE IRON COMPLEX 150 MG CAPSULE PO (10:55)
[2019-09-05] MEDS: LIOTHYRONINE SODIUM 5 MCG TABLET PO (10:55)
[2019-09-05] MEDS: carvediloL 12.5 MG TABLET PO ×2 (10:55→21:03)
[2019-09-05] MEDS: ENALAPRIL MALEATE 2.5 MG TABLET PO (10:56)
[2019-09-05] MEDS: methylPREDNISolone SOD SUCC 125 MG VIAL 60 MG IV PUSH (10:57)
[2019-09-05] MEDS: TOLNAFTATE 1% POWDER 45 GM BTL 1 APPLIC TOPICAL ×2 (10:58→21:04)
[2019-09-05] MEDS: BETAMETHASONE/CLOTRIMAZOLE CR 15 GM TUBE 1 APPLIC TOPICAL ×2 (10:59→21:04)
[2019-09-05] MEDS: FLUCONAZOLE 100 MG TABLET 200 MG PO (15:44)
--- NOTE | 2019-09-05 16:52 | PC.NURSE ---
This patient, Dasia Hernandez, was received from [[facility] ] on 09/05/19 at 1652. Personal belongings list checked and signed. Patient/family oriented to unit policies and routines
--- NOTE | 2019-09-05 16:57 | PC.NURSE ---
This patient, Dasia Hernandez, was transferred to [facility] on 09/05/19 at 1650. Personal belongings sent with patient. Report given to Alejandra Carranza. Appropriate documentation sent with patient.
--- NOTE | 2019-09-05 18:33 | PM.PNPUL ---
Subjective Date/time seen: 09/06/19 15:45 She is awake, sitting in bed, says that she feels btter today. SHe has a non-productive cough aggravated by sinus drainage. Objective Data Vital Signs Vital Signs: Vital Signs - 24 hr 09/04/19 19:50 09/04/19 20:00 09/04/19 20:26 Temperature 36.8 C Pulse Rate 93 88 90 Respiratory Rate 18 20 20 Blood Pressure 97/49 L Pulse Oximetry 93 93 93 09/04/19 20:36 09/04/19 20:58 09/04/19 22:00 Temperature Pulse Rate 90 88 101 H Respiratory Rate 20 Blood Pressure Pulse Oximetry 09/04/19 23:59 09/05/19 00:00 09/05/19 02:00 Temperature 36.4 C Pulse Rate 80 94 94 Respiratory Rate 16 16 Blood Pressure 98/48 L Pulse Oximetry 95 95 09/05/19 02:10 09/05/19 02:14 09/05/19 04:00 Temperature 36.3 C L Pulse Rate 98 98 76 Respiratory Rate 20 20 16 Blood Pressure 98/51 L Pulse Oximetry 96 09/05/19 06:00 09/05/19 08:00 09/05/19 08:05 Temperature 35.9 C L Pulse Rate 78 71 75 Respiratory Rate 12 20 Blood Pressure 97/43 L Pulse Oximetry 97 09/05/19 08:08 09/05/19 08:12 09/05/19 10:00 Temperature Pulse Rate 73 66 Respiratory Rate 20 Blood Pressure Pulse Oximetry 95 09/05/19 10:55 09/05/19 12:00 09/05/19 13:33 Temperature 36.2 C L Pulse Rate 72 74 77 Respiratory Rate 20 20 Blood Pressure 96/49 L Pulse Oximetry 96 09/05/19 13:41 09/05/19 14:00 09/05/19 15:54 Temperature 36.3 C L Pulse Rate 82 79 83 Respiratory Rate 20 16 Blood Pressure 87/45 L Pulse Oximetry 95 09/05/19 16:00 09/05/19 16:41 Temperature Pulse Rate 82 Respiratory Rate Blood Pressure 112/47 L Pulse Oximetry Intake/Output Intake/Output: Intake & Output 09/02/19 09/03/19 09/04/19 09/05/19 23:59 23:59 23:59 23:59 Intake Total 240 1560 720 Output Total 5500 586 Balance 240 410 345 Meds/Results Medications: Active Medications Generic Name Dose Route Start Last Admin Trade Name Freq PRN Reason Stop Dose Admin Acetaminophen 650 mg 09/02/19 14:34 Tylenol Tablet PO Q4H PRN Mild Pain (1-3) or Fever Acetaminophen/Codeine Phosphate 1 tab 09/03/19 21:00 09/05/19 11:03 Tylenol #3 PO 1 tab Q12HR REGINA Administration Albuterol 5 mg 09/02/19 14:00 09/05/19 13:32 Albuterol Sulf Neb 2.5mg/0.5ml INHALATION 5 mg Q6HRT REGINA Administration Amoxicillin/Clavulanate Potassium 1 tablet 09/03/19 14:00 09/05/19 15:44 Augmentin 500-125 Mg Tab PO 1 tablet Q8HR REGINA Administration Carvedilol 12.5 mg 09/03/19 09:00 09/05/19 10:55 Coreg PO 12.5 mg Q12HR REGINA Administration Clotrimazole 1 applic 09/03/19 09:00 09/05/19 10:59 Lotrisone Cream TOPICAL 1 applic Q12HR REGINA Administration Duloxetine HCl 30 mg 09/03/19 09:00 09/05/19 10:54 Cymbalta PO 30 mg DAILY REGINA Administration Enalapril Maleate 2.5 mg 09/03/19 09:00 09/05/19 10:56 Vasotec PO 2.5 mg DAILY REGINA Administration Enoxaparin Sodium 40 mg 09/04/19 09:00 09/05/19 10:54 Lovenox SUB-Q 40 mg DAILY REGINA Administration Fluconazole 200 mg 09/05/19 13:15 09/05/19 15:44 Diflucan Tablet PO 09/10/19 21:00 200 mg QAM REGINA Administration Furosemide 40 mg 09/04/19 09:00 09/05/19 10:54 Lasix Tablet PO 40 mg DAILY REGINA Administration Ipratropium [place] 0.5 mg 09/02/19 14:00 09/05/19 13:32 Atrovent Neb INHALATION 0.5 mg Q6HRT REGINA Administration Lactobacillus Acidophilus 1 tablet 09/03/19 09:00 09/05/19 16:58 Lactinex Chewable Tablet PO 1 tablet BID REGINA Administration Levothyroxine Sodium 50 mcg 09/03/19 06:30 09/05/19 05:56 Synthroid PO 50 mcg DAILY@0630 REGINA Administration Liothyronine Sodium 5 mcg 09/04/19 09:00 09/05/19 10:55 Cytomel PO 10/04/19 09:01 5 mcg DAILY REGINA Administration Methylprednisolone Sodium Succinate 60 mg 09/05/19 09:00 09/05/19 10:57 Solu-Medrol IV PUSH 60 mg DAILY REGINA Administrat
[2019-09-06] VITALS (21 sets, daily range): BP systolic 104–137; BP diastolic 46–62; PULSE 68–107; RESP 18–22; TEMP 36.4–36.9; O2SAT 90–98
[2019-09-06] MEDS: IPRATROPIUM BR 0.02% INH SOLN 0.5 MG/2.5 ML VIAL INHALATION ×4 (01:42→19:44)
[2019-09-06] MEDS: ALBUTEROL SULFATE NEB 2.5 MG/0.5 ML INH 5 MG INHALATION ×4 (01:42→19:44)
[2019-09-06] MEDS: LEVOTHYROXINE SODIUM 50 MCG TABLET PO (05:44)
[2019-09-06] MEDS: AMOXICILLIN/CLAVULANATE K 500-125 MG TAB 1 TABLET PO ×3 (05:44→20:39)
[2019-09-06 08:05] LABS: Hematocrit 34.2 % (37.0-47.0); Hemoglobin 9.7 g/dL (12.0-15.0); Mean Corpuscular HGB Conc 28.4 g/dl (32-36); Mean Corpuscular Hemoglobin 26.5 pg (26-34); Mean Corpuscular Volume 93.4 fl (80-100); Mean Platelet Volume 9.8 fl (7.4-10.4); Platelet Count Result 231 k/mm3 (150-375); Red Blood Count 3.66 M/mm3 (4.2-5.4); Red Cell Distribution Width 17.9 % (11.5-14.5); White Blood Count 7.8 K/mm3 (4.5-10.0)
[2019-09-06 08:20] LABS: Potassium 4.4 mmol/L (3.4-5.0)
[2019-09-06 08:40] LABS: Blood Urea Nitrogen 37 mg/dL (7-17); Calcium 7.9 mg/dL (8.4-10.2); Carbon Dioxide 38 mmol/L (22-30); Chloride 93 mmol/L (98-107); Estimated Glomerular Filt Rate 48; Glucose 142 mg/dL (65-105); Sodium 136 mmol/L (137-145)
--- NOTE | 2019-09-06 09:14 | PM.IMPN ---
Progress Note: A&P Assessment and Plan (1) Acute respiratory failure with hypoxia and hypercarbia: Code(s): J96.01 - Acute respiratory failure with hypoxia; J96.02 - Acute respiratory failure with hypercapnia Status: Acute Assessment and Plan: ABG was ordered as the pt was somnolent 09/02/19 and revealed respiratory acidosis with pH 7.247 and pCO2 90.3. She was placed on BiPAP. pH normalized to 7.387 with BiPAP therapy. She likely has chronic CO2 retention and is compensating appropriately as clinically improved. She is tolerating 2L per nasal cannula well during the day and we will perform a home oxygen evaluation prior to discharge. Her acute on chronic respiratory failure is likely secondary to severe aortic stenosis, CHF exacerbation, COPD exacerbation, untreated ANNE (stopped using CPAP 2-3 years ago), and obesity hypoventilation syndrome. Dr. Hernandez was consulted for further recommendations which are greatly appreciated. I discussed the case with Dr. Hernandez and she may be a candidate for the Trilogy unit but we are unsure if she can use this at [facility]. Plan to continue BiPAP at night and with naps. She was compliant with BiPAP last night. Wean oxygen as tolerated to maintain SPO2 >90%. Continue to monitor. (2) Acute exacerbation of congestive heart failure: Qualifiers: Heart failure type: unspecified Qualified Code(s): I50.9 - Heart failure, unspecified Code(s): I50.9 - Heart failure, unspecified Status: Acute Assessment and Plan: She endorsed progressively worsening dyspnea over the past three days prior to admission with increased lower extremity swelling. CXR revealed cardiomegaly with congestion, suspicious for pulmonary edema with small pleural effusions. She received IV diuresis with improvement. A gardner was placed 09/03/19 at 16:00 for accurate I/O with good urine output. Cr increased to 1.2 and BUN 29 09/04/19 so I resumed her PO lasix. I discussed limiting sodium intake as she reported very heavy salt use prior to admission. Continue to monitor volume status closely with I/O and daily weights. Echocardiogram was technically difficult but revealed normal LV size, mild LVH, hyperdynamic LV systolic function with EF >70%, grade 1 diastolic dysfunction, and poor aortic valve visualization with at least moderate-severe . Continue PO lasix. Continue enalapril. Continue carvedilol. Continue to monitor. (3) Aortic stenosis: Qualifiers: Cardiac valve disease etiology: etiology unspecified Qualified Code(s): I35.0 - Nonrheumatic aortic (valve) stenosis Code(s): I35.0 - Nonrheumatic aortic (valve) stenosis Status: Acute Assessment and Plan: The patient reports a hx of severe was told she needs surgical repair. Her primary wet process technician is Dr. Rachel and her cardiothoracic surgeon is Dr. Muñoz. She reports that she met with Dr. Muñoz and was told that she is high risk and needed multiple evaluations by other specialists. She reports that she was walking at this time but is no longer ambulatory. Records were requested but are still pending. There was an issue with the record request form and the request was submitted again yesterday. Repeat echocardiogram was technically difficult but revealed moderate to severe aortic stenosis with valve area 1-1.1cm2, mean gradient 34 mmHg, and peak gradient 64. She is considering follow-up wt Dr. Muñoz to discuss valve replacement and was encouraged to follow-up with him outpatient. Continue to monitor for any new sx. (4) COPD exacerbation: Code(s): J44.1 - Chronic obstructive pulmonary disease with (acute) exacerbation Status: Acute Assessment and Plan: She had evidence of wheezing to lung auscultation. ABG reveals hypercapnia and she likely has a component of chronic hypercapnia although I have no records for review at this time. Continue scheduled nebulized bronchodilators Q6HR. D
[2019-09-06] MEDS: FUROSEMIDE 40 MG TABLET PO (09:43)
[2019-09-06] MEDS: POLYSACCHARIDE IRON COMPLEX 150 MG CAPSULE PO (09:43)
[2019-09-06] MEDS: DULoxetine HCL 30 MG CAPSULE.DR PO (09:43)
[2019-09-06] MEDS: LIOTHYRONINE SODIUM 5 MCG TABLET PO (09:44)
[2019-09-06] MEDS: ENALAPRIL MALEATE 2.5 MG TABLET PO (09:44)
[2019-09-06] MEDS: ACIDOPHILUS/BULGARICUS CHEWABLE TABLET 1 TABLET PO ×2 (09:44→17:50)
[2019-09-06] MEDS: ENOXAPARIN 40 MG/0.4 ML SYRINGE SUB-Q (09:44)
[2019-09-06] MEDS: carvediloL 6.25 MG TABLET PO ×2 (11:21→20:38)
[2019-09-06] MEDS: FLUCONAZOLE 100 MG TABLET 200 MG PO (13:08)
[2019-09-06] MEDS: BETAMETHASONE/CLOTRIMAZOLE CR 15 GM TUBE 1 APPLIC TOPICAL ×2 (15:16→20:38)
[2019-09-06] MEDS: TOLNAFTATE 1% POWDER 45 GM BTL 1 APPLIC TOPICAL ×2 (15:16→20:39)
[2019-09-06 17:28] LABS: SARS-CoV-2 RNA PCR Negative
--- NOTE | 2019-09-06 18:08 | PM.PNPUL ---
Subjective Date/time seen: 09/06/19 18:08 Objective Data Vital Signs Vital Signs: Vital Signs - 24 hr 09/05/19 20:00 09/05/19 20:20 09/05/19 20:30 Temperature Pulse Rate 108 H 104 H 109 H Respiratory Rate 20 20 Blood Pressure Pulse Oximetry 95 09/05/19 21:03 09/05/19 22:00 09/05/19 22:35 Temperature 36.9 C Pulse Rate 110 H 110 H 110 H Respiratory Rate 20 23 H Blood Pressure 112/49 L Pulse Oximetry 92 92 09/06/19 00:00 09/06/19 01:46 09/06/19 01:49 Temperature Pulse Rate 90 72 72 Respiratory Rate 20 20 Blood Pressure Pulse Oximetry 94 09/06/19 01:56 09/06/19 04:33 09/06/19 06:00 Temperature 36.4 C Pulse Rate 75 68 75 Respiratory Rate 20 20 Blood Pressure 124/62 Pulse Oximetry 98 09/06/19 07:54 09/06/19 08:00 09/06/19 08:05 Temperature Pulse Rate 88 80 82 Respiratory Rate 20 20 Blood Pressure Pulse Oximetry 98 09/06/19 09:32 09/06/19 11:21 09/06/19 14:08 Temperature Pulse Rate 76 76 80 Respiratory Rate 18 20 Blood Pressure 137/61 Pulse Oximetry 97 09/06/19 14:11 09/06/19 14:17 Temperature Pulse Rate 82 Respiratory Rate 20 Blood Pressure Pulse Oximetry 94 Intake/Output Intake/Output: Intake & Output 09/03/19 09/04/19 09/05/19 09/06/19 23:59 23:59 23:59 23:59 Intake Total 240 6690 218 0136 Output Total 1150 1125 650 Balance 240 410 -165 490 Meds/Results Medications: Active Medications Generic Name Dose Route Start Last Admin Trade Name Freq PRN Reason Stop Dose Admin Acetaminophen 650 mg 09/02/19 14:34 Tylenol Tablet PO Q4H PRN Mild Pain (1-3) or Fever Acetaminophen/Codeine Phosphate 1 tab 09/03/19 21:00 09/06/19 09:42 Tylenol #3 PO 1 tab Q12HR REGINA Administration Albuterol 5 mg 09/02/19 14:00 09/06/19 14:08 Albuterol Sulf Neb 2.5mg/0.5ml INHALATION 5 mg Q6HRT REGINA Administration Amoxicillin/Clavulanate Potassium 1 tablet 09/03/19 14:00 09/06/19 15:14 Augmentin 500-125 Mg Tab PO 1 tablet Q8HR REGINA Administration Carvedilol 6.25 mg 09/06/19 09:00 09/06/19 11:21 Coreg PO 6.25 mg Q12HR REGINA Administration Clotrimazole 1 applic 09/03/19 09:00 09/06/19 15:16 Lotrisone Cream TOPICAL 1 applic Q12HR REGINA Administration Duloxetine HCl 30 mg 09/03/19 09:00 09/06/19 09:43 Cymbalta PO 30 mg DAILY REGINA Administration Enalapril Maleate 2.5 mg 09/03/19 09:00 09/06/19 09:44 Vasotec PO 2.5 mg DAILY REGINA Administration Enoxaparin Sodium 40 mg 09/04/19 09:00 09/06/19 09:44 Lovenox SUB-Q 40 mg DAILY REGINA Administration Fluconazole 200 mg 09/05/19 13:15 09/06/19 13:08 Diflucan Tablet PO 09/10/19 21:00 200 mg QAM REGINA Administration Furosemide 40 mg 09/04/19 09:00 09/06/19 09:43 Lasix Tablet PO 40 mg DAILY REGINA Administration Ipratropium [place] 0.5 mg 09/02/19 14:00 09/06/19 14:07 Atrovent Neb INHALATION 0.5 mg Q6HRT REGINA Administration Lactobacillus Acidophilus 1 tablet 09/03/19 09:00 09/06/19 17:50 Lactinex Chewable Tablet PO 1 tablet BID REGINA Administration Levothyroxine Sodium 50 mcg 09/03/19 06:30 09/06/19 05:44 Synthroid PO 50 mcg DAILY@0630 REGINA Administration Liothyronine Sodium 5 mcg 09/04/19 09:00 09/06/19 09:44 Cytomel PO 10/04/19 09:01 5 mcg DAILY REGINA Administration Miconazole Nitrate 1 applic 09/03/19 09:00 09/06/19 15:16 Aloe [place] TOPICAL 1 applic Q12HR REGINA Administration Ondansetron HCl 4 mg 09/02/19 14:34 Zofran Inj IV PUSH Q4H PRN Nausea Polysaccharide Iron Complex 150 mg 09/03/19 09:00 09/06/19 09:43 Niferex-150 PO 150 mg DAILY REGINA Administration Tolnaftate 1 applic 09/03/19 21:00 09/06/19 15:16 Tolnaftate 1% Powder TOPICAL 1 applic Q12HR REGINA Administration Radiology Results: ITS Impressions Chest X-Ray 09/02/19 12:19 IMPRESSION: 1. Findings suspicious for CHF ex
[2019-09-07] VITALS (18 sets, daily range): BP systolic 96–132; BP diastolic 42–64; PULSE 70–108; RESP 18–24; TEMP 36.2–37.1; O2SAT 92–100; BMI 10.0
[2019-09-07] MEDS: IPRATROPIUM BR 0.02% INH SOLN 0.5 MG/2.5 ML VIAL INHALATION ×4 (01:36→19:49)
[2019-09-07] MEDS: ALBUTEROL SULFATE NEB 2.5 MG/0.5 ML INH 5 MG INHALATION ×4 (01:36→19:49)
[2019-09-07] MEDS: LEVOTHYROXINE SODIUM 50 MCG TABLET PO (06:03)
[2019-09-07] MEDS: AMOXICILLIN/CLAVULANATE K 500-125 MG TAB 1 TABLET PO (06:03)
[2019-09-07 06:31] LABS: Hematocrit 34.3 % (37.0-47.0); Hemoglobin 9.9 g/dL (12.0-15.0); Mean Corpuscular HGB Conc 28.9 g/dl (32-36); Mean Corpuscular Hemoglobin 26.8 pg (26-34); Mean Platelet Volume 10.2 fl (7.4-10.4); Platelet Count Result 245 k/mm3 (150-375); Red Blood Count 3.69 M/mm3 (4.2-5.4); Red Cell Distribution Width 18.6 % (11.5-14.5); White Blood Count 8.1 K/mm3 (4.5-10.0)
[2019-09-07 06:43] LABS: Alanine Aminotransferase 35 U/L (4-35); Albumin Level 3.3 g/dL (3.5-5.1); Alkaline Phosphatase 53 U/L (38-126); Aspartate Amino Transferase 29 U/L (14-36); Bilirubin,Total 0.2 mg/dL (0.2-1.3); Blood Urea Nitrogen 41 mg/dL (7-17); Calcium 7.8 mg/dL (8.4-10.2); Carbon Dioxide 39 mmol/L (22-30); Chloride 94 mmol/L (98-107); Estimated Glomerular Filt Rate 48; Glucose 98 mg/dL (65-105); Magnesium 2.4 mg/dL (1.6-2.3); Potassium 4.3 mmol/L (3.4-5.0); Sodium 136 mmol/L (137-145)
[2019-09-07] MEDS: LIOTHYRONINE SODIUM 5 MCG TABLET PO (09:05)
[2019-09-07] MEDS: ACIDOPHILUS/BULGARICUS CHEWABLE TABLET 1 TABLET PO ×2 (09:05→16:20)
[2019-09-07] MEDS: FUROSEMIDE 40 MG TABLET PO (09:06)
[2019-09-07] MEDS: ENALAPRIL MALEATE 2.5 MG TABLET PO (09:06)
[2019-09-07] MEDS: FLUCONAZOLE 100 MG TABLET 200 MG PO (09:06)
[2019-09-07] MEDS: DULoxetine HCL 30 MG CAPSULE.DR PO (09:06)
[2019-09-07] MEDS: POLYSACCHARIDE IRON COMPLEX 150 MG CAPSULE PO (09:08)
[2019-09-07] MEDS: ENOXAPARIN 40 MG/0.4 ML SYRINGE SUB-Q (09:09)
[2019-09-07] MEDS: carvediloL 6.25 MG TABLET PO ×2 (09:09→20:38)
[2019-09-07] MEDS: BETAMETHASONE/CLOTRIMAZOLE CR 15 GM TUBE 1 APPLIC TOPICAL ×2 (09:10→20:38)
[2019-09-07] MEDS: TOLNAFTATE 1% POWDER 45 GM BTL 1 APPLIC TOPICAL ×2 (09:10→20:38)
--- NOTE | 2019-09-07 09:52 | PM.IMPN ---
Progress Note: A&P Assessment and Plan (1) Pneumonia due to Staphylococcus: Code(s): J15.20 - Pneumonia due to staphylococcus, unspecified Status: Acute Assessment and Plan: Sputum culture was ordered due to severe COPD exacerbation and demonstrated moderate growth of Staphylococcus aureus. Susceptibilities are pending. She was on agumentin for empiric coverage which was initiated 09/03/19. Discontinue augmentin and begin vancomycin as she is at increased risk for MRSA. Await final culture and susceptibility report and switch to PO regimen if possible as pt is stable for discharge. Continue supplemental oxygen as needed to achieve a pulse oxygen saturation of 92%. Continue nebulized bronchodilators. Continue to monitor. (2) Acute respiratory failure with hypoxia and hypercarbia: Code(s): J96.01 - Acute respiratory failure with hypoxia; J96.02 - Acute respiratory failure with hypercapnia Status: Acute Assessment and Plan: ABG was ordered as the pt was somnolent 09/02/19 and revealed respiratory acidosis with pH 7.247 and pCO2 90.3. She was placed on BiPAP. pH normalized to 7.387 with BiPAP therapy. She likely has chronic CO2 retention and is compensating appropriately as clinically improved. She is tolerating 2L per nasal cannula well during the day and we will perform a home oxygen evaluation prior to discharge. Her acute on chronic respiratory failure is likely secondary to severe aortic stenosis, CHF exacerbation, COPD exacerbation, untreated ANNE (stopped using CPAP 2-3 years ago), and obesity hypoventilation syndrome. Dr. Hernandez was consulted for further recommendations which are greatly appreciated. I discussed the case with Dr. Hernandez and she may be a candidate for the Trilogy unit but we are unsure if she can use this at [facility]. Plan to continue BiPAP at night and with naps. She is tolerating BiPAP therapy well. She was weaned to room air during the day yesterday (09/06/19). She is clinically at baseline. Continue supplemental oxygen as needed to maintain SPO2 >90%. Continue to monitor. (3) COPD exacerbation: Code(s): J44.1 - Chronic obstructive pulmonary disease with (acute) exacerbation Status: Acute Assessment and Plan: She had evidence of wheezing to lung auscultation. ABG reveals hypercapnia and she likely has a component of chronic hypercapnia although I have no records for review at this time. Continue scheduled nebulized bronchodilators Q6HR. Steriods were discontinued 09/06/19 due to presence of budding yeast on sputum culture. Continue supplemental oxygen as needed to achieve a pulse oxygen saturation of 90%. Wean oxygen as tolerated. Continue BiPAP at night and with naps. (4) Discharge planning issues: Code(s): Z02.9 - Encounter for administrative examinations, unspecified Status: Acute Assessment and Plan: She has a bed available 09/08/19 at [facility]. Insurance authorization is still pending at this time. Discharge is anticipated tomorrow (09/08/19). (5) Acute exacerbation of congestive heart failure: Qualifiers: Heart failure type: unspecified Qualified Code(s): I50.9 - Heart failure, unspecified Code(s): I50.9 - Heart failure, unspecified Status: Acute Assessment and Plan: She endorsed progressively worsening dyspnea over the past three days prior to admission with increased lower extremity swelling. CXR revealed cardiomegaly with congestion, suspicious for pulmonary edema with small pleural effusions. She received IV diuresis with improvement. A gardner was placed 09/03/19 at 16:00 for accurate I/O with good urine output. Cr increased to 1.2 and BUN 29 09/04/19 so I resumed her PO lasix. I discussed limiting sodium intake as she reported very heavy salt use prior to admission. Continue to monitor volume status closely with I/O and daily weights. Echocardiogram was technically diffic
--- NOTE | 2019-09-07 18:11 | PM.PNPUL ---
Progress Note: A&P Assessment and Plan (1) Acute respiratory failure with hypoxia and hypercarbia: Code(s): J96.01 - Acute respiratory failure with hypoxia; J96.02 - Acute respiratory failure with hypercapnia Status: Acute Assessment and Plan: She has been using O2 at home (2) Aortic stenosis: Qualifiers: Cardiac valve disease etiology: etiology unspecified Qualified Code(s): I35.0 - Nonrheumatic aortic (valve) stenosis Code(s): I35.0 - Nonrheumatic aortic (valve) stenosis Status: Acute Assessment and Plan: She has been evaluated for a TAVR, was told last year that she was at increased risk due to her co-morbidities; since the nshe has become immobile. She has not walked since Apr. She was caught in a NH when the pandemic erupted, and she was trapped in a room with meals, but no interaction, no therapy, and has become more debilitated. (3) Acute exacerbation of congestive heart failure: Qualifiers: Heart failure type: unspecified Qualified Code(s): I50.9 - Heart failure, unspecified Code(s): I50.9 - Heart failure, unspecified Status: Acute (4) COPD exacerbation: Code(s): J44.1 - Chronic obstructive pulmonary disease with (acute) exacerbation Status: Acute (5) ANNE and COPD overlap syndrome: Code(s): G47.33 - Obstructive sleep apnea (adult) (pediatric); J44.9 - Chronic obstructive pulmonary disease, unspecified Status: Acute Assessment and Plan: She has obstructive sleep apnea, has not used her device in a long time, so long that she cannot remember when it was last working. She was tested and treated out of her speech pathology supervisor's office. Subjective Date/time seen: 09/07/19 18:11 Interval history: Mrs. Hernandez is a morbidly obese female seen in follow-up for acute hypoxic and hypercapnic respiratory failure secondary to untreated ANNE, COPD, reported severe aortic stenosis, and CHF. She is tolerating the BiPAP well. She reports its somewhat difficult to fall asleep but she sleeps well once she gets to sleep and feels rested durin the day. She was weaned to room air yesterday. She denies dyspnea, cough, subjective fever, and chills. She denies chest pain. She denies nausea, vomiting, diarrhea, and constipation. She reports that she feels great today. She is tolerating PO intake well. She reports a bowel movement yesterday. She reports that she is continent of urine but she often used depends prior to admission because she did not have help when she needed to void. She has a gardner in we will discontinue and perform voiding trial. Objective Data Vital Signs Vital Signs: Vital Signs - 24 hr 09/06/19 19:47 09/06/19 19:49 09/06/19 19:57 Temperature Pulse Rate 89 94 Respiratory Rate 20 20 Blood Pressure Pulse Oximetry 90 09/06/19 20:38 09/06/19 22:00 09/06/19 22:50 Temperature 36.9 C Pulse Rate 84 107 H 107 H Respiratory Rate 20 22 H Blood Pressure 116/50 L Pulse Oximetry 92 92 09/07/19 01:40 09/07/19 01:50 09/07/19 06:00 Temperature 37.1 C Pulse Rate 70 72 72 Respiratory Rate 23 H 22 H 20 Blood Pressure 111/57 L Pulse Oximetry 94 98 09/07/19 07:43 09/07/19 07:46 09/07/19 07:54 Temperature Pulse Rate 75 76 76 Respiratory Rate 20 20 18 Blood Pressure Pulse Oximetry 98 09/07/19 09:01 09/07/19 09:09 09/07/19 13:38 Temperature 36.3 C L Pulse Rate 88 88 79 Respiratory Rate 22 H 18 Blood Pressure 132/64 Pulse Oximetry 98 09/07/19 13:41 09/07/19 13:45 09/07/19 14:00 Temperature 36.4 C Pulse Rate 75 72 Respiratory Rate 18 18 Blood Pressure 96/42 L Pulse Oximetry 92 100 Intake/Output Intake/Output: Intake & Output 09/04/19 09/05/19 09/06/19 09/07/19 23:59 23:59 23:59 23:59 Intake Total 1288 445 4617 1440 Output Total
[2019-09-08] VITALS (16 sets, daily range): BP systolic 104–127; BP diastolic 43–64; PULSE 74–102; RESP 16–27; TEMP 36.7–37.3; O2SAT 90–100
[2019-09-08] MEDS: IPRATROPIUM BR 0.02% INH SOLN 0.5 MG/2.5 ML VIAL INHALATION ×4 (01:42→19:47)
[2019-09-08] MEDS: ALBUTEROL SULFATE NEB 2.5 MG/0.5 ML INH 5 MG INHALATION ×4 (01:42→19:47)
[2019-09-08] MEDS: LEVOTHYROXINE SODIUM 50 MCG TABLET PO (06:14)
[2019-09-08 06:25] LABS: Basophils Percent Auto 0.1 % (0.2-1.2); Eosinophils Absolute Auto 0.4 K/mm3 (0-0.3); Eosinophils Percent Auto 4.6 % (0-4.4); Hematocrit 35.7 % (37.0-47.0); Hemoglobin 10.1 g/dL (12.0-15.0); Immature Granulocyte Absolute 0.03 K/mm3 (0.00-0.031); Immature Granulocyte Percent A 0.3 % (0-0.5); Lymphocytes Absolute Auto 1.08 K/mm3 (0.9-3.2); Lymphocytes Percent Auto 12.2 % (18.3-44.2); Mean Corpuscular HGB Conc 28.3 g/dl (32-36); Mean Corpuscular Hemoglobin 26.1 pg (26-34); Mean Corpuscular Volume 92.2 fl (80-100); Mean Platelet Volume 9.8 fl (7.4-10.4); Monocytes Absolute Auto 0.6 K/mm3 (0.1-0.6); Monocytes Percent Auto 6.7 % (2.6-8.5); Neutrophils Absolute Auto 6.7 K/mm3 (1.3-6.7); Neutrophils Percent Auto 76.1 % (45.5-73.1); Platelet Count Result 232 k/mm3 (150-375); Red Blood Count 3.87 M/mm3 (4.2-5.4); Red Cell Distribution Width 18.8 % (11.5-14.5); White Blood Count 8.9 K/mm3 (4.5-10.0)
[2019-09-08 06:30] LABS: Potassium 4.5 mmol/L (3.4-5.0)
[2019-09-08 06:43] LABS: Blood Urea Nitrogen 39 mg/dL (7-17); Calcium 8.1 mg/dL (8.4-10.2); Carbon Dioxide 38 mmol/L (22-30); Chloride 93 mmol/L (98-107); Estimated Glomerular Filt Rate 54; Glucose 108 mg/dL (65-105); Magnesium 2.3 mg/dL (1.6-2.3); Sodium 136 mmol/L (137-145)
[2019-09-08 06:53] LABS: Anisocytosis 1+ (NORMAL); Platelet Estimate Adequate (Adequate)
[2019-09-08 06:54] LABS: Hypochromasia 1+ (NORMAL)
[2019-09-08] MEDS: POLYSACCHARIDE IRON COMPLEX 150 MG CAPSULE PO (08:32)
[2019-09-08] MEDS: LIOTHYRONINE SODIUM 5 MCG TABLET PO (08:32)
[2019-09-08] MEDS: DULoxetine HCL 30 MG CAPSULE.DR PO (08:32)
[2019-09-08] MEDS: ENOXAPARIN 40 MG/0.4 ML SYRINGE SUB-Q (08:32)
[2019-09-08] MEDS: FLUCONAZOLE 100 MG TABLET 200 MG PO (08:32)
[2019-09-08] MEDS: FUROSEMIDE 40 MG TABLET PO (08:32)
[2019-09-08] MEDS: ACIDOPHILUS/BULGARICUS CHEWABLE TABLET 1 TABLET PO ×2 (08:32→17:08)
[2019-09-08] MEDS: ENALAPRIL MALEATE 2.5 MG TABLET PO (08:33)
[2019-09-08] MEDS: carvediloL 6.25 MG TABLET PO ×2 (08:33→20:02)
[2019-09-08] MEDS: TOLNAFTATE 1% POWDER 45 GM BTL 1 APPLIC TOPICAL ×2 (08:34→21:24)
[2019-09-08] MEDS: BETAMETHASONE/CLOTRIMAZOLE CR 15 GM TUBE 1 APPLIC TOPICAL ×2 (08:35→20:04)
--- NOTE | 2019-09-08 15:01 | PM.IMPN ---
Progress Note: A&P Assessment and Plan (1) Discharge planning issues: Code(s): Z02.9 - Encounter for administrative examinations, unspecified Status: Acute Assessment and Plan: She has a bed available 09/08/19 at [facility]. Insurance authorization is still pending at this time. Discharge is anticipated tomorrow (09/09/19). (2) Pneumonia due to Staphylococcus: Code(s): J15.20 - Pneumonia due to staphylococcus, unspecified Status: Acute Assessment and Plan: Sputum culture was ordered due to severe COPD exacerbation and demonstrated moderate growth of MRSA. Susceptibilities to gentamicin, tetracycline, Bactrim and vancomycin. She was on agumentin for empiric coverage which was initiated 09/03/19. Discontinue augmentin and begin vancomycin. Patient will be started on for treatment of MRSA pneumonia Pending discharge authorization at this time to SNF, but otherwise patient is stable. Continue supplemental oxygen as needed. Pulse oxygen saturation of 91% on room air. Continue nebulized bronchodilators. Continue to monitor. (3) Acute respiratory failure with hypoxia and hypercarbia: Code(s): J96.01 - Acute respiratory failure with hypoxia; J96.02 - Acute respiratory failure with hypercapnia Status: Acute Assessment and Plan: ABG was ordered as the pt was somnolent 09/02/19 and revealed respiratory acidosis with pH 7.247 and pCO2 90.3. She was placed on BiPAP. pH normalized to 7.387 with BiPAP therapy. She likely has chronic CO2 retention and is compensating appropriately as clinically improved. She is tolerating 2L per nasal cannula well during the day. Her acute on chronic respiratory failure is likely secondary to severe aortic stenosis, CHF exacerbation, COPD exacerbation, untreated ANNE (stopped using CPAP 2-3 years ago), and obesity hypoventilation syndrome. Dr. Hernandez was consulted for further recommendations which are greatly appreciated. I discussed the case with Dr. Hernandez and she may be a candidate for the Trilogy. The patient will have to use a BiPAP upon discharge to [facility], then when she is discharged back to her assisted living facility she can be given a trilogy at that time. I have talked with respiratory about this and communication has been placed about needing trilogy upon discharge back to assisted living facility. Plan to continue BiPAP at night and with naps. She is tolerating BiPAP therapy well. She was weaned to room air during the day yesterday (09/06/19). She is clinically at baseline. Continue supplemental oxygen as needed to maintain SPO2 >90%. Continue to monitor. (4) COPD exacerbation: Code(s): J44.1 - Chronic obstructive pulmonary disease with (acute) exacerbation Status: Acute Assessment and Plan: She had evidence of wheezing to lung auscultation. ABG reveals hypercapnia and she likely has a component of chronic hypercapnia although I have no records for review at this time. Continue scheduled nebulized bronchodilators Q6HR. Steriods were discontinued 09/06/19 due to presence of budding yeast on sputum culture. Continue supplemental oxygen as needed to achieve a pulse oxygen saturation of 90%. Wean oxygen as tolerated. Continue BiPAP at night and with naps. (5) Acute exacerbation of congestive heart failure: Qualifiers: Heart failure type: unspecified Qualified Code(s): I50.9 - Heart failure, unspecified Code(s): I50.9 - Heart failure, unspecified Status: Acute Assessment and Plan: She endorsed progressively worsening dyspnea over the past three days prior to admission with increased lower extremity swelling. CXR revealed cardiomegaly with congestion, suspicious for pulmonary edema with sma
--- NOTE | 2019-09-08 17:39 | PM.PNPUL ---
Progress Note: A&P Assessment and Plan (1) Acute respiratory failure with hypoxia and hypercarbia: Code(s): J96.01 - Acute respiratory failure with hypoxia; J96.02 - Acute respiratory failure with hypercapnia Status: Acute Assessment and Plan: She has not been using O2 at home, was not on PAP therapy recently. She Has multifactorial causes due to acute on chronic hypercapnic hypoxemic respiratory failure. She has tried BiPAP here in the hospital, it has had marginal improvement as far as her gas exchange and her tolerance. This patient has acute and chronic hypercapnic hypoxemic respiratory failure and COPD. I am ordering a trilogy for nocturnal use with all episodes of sleep and daytime use as needed. BiPAP has been considered and ruled out. (2) Aortic stenosis: Qualifiers: Cardiac valve disease etiology: etiology unspecified Qualified Code(s): I35.0 - Nonrheumatic aortic (valve) stenosis Code(s): I35.0 - Nonrheumatic aortic (valve) stenosis Status: Acute Assessment and Plan: She has been evaluated for a TAVR, was told last year that she was at increased risk due to her co-morbidities; since the nshe has become immobile. She has not walked since Apr. She was caught in a NH when the pandemic erupted, and she was trapped in a room with meals, but no interaction, no therapy, and has become more debilitated. (3) Acute exacerbation of congestive heart failure: Qualifiers: Heart failure type: unspecified Qualified Code(s): I50.9 - Heart failure, unspecified Code(s): I50.9 - Heart failure, unspecified Status: Acute Assessment and Plan: Due to in part to aortic stenosis, (4) COPD exacerbation: Code(s): J44.1 - Chronic obstructive pulmonary disease with (acute) exacerbation Status: Acute Assessment and Plan: with prior history of tobacco use, has not had testing recently. (5) ANNE and COPD overlap syndrome: Code(s): G47.33 - Obstructive sleep apnea (adult) (pediatric); J44.9 - Chronic obstructive pulmonary disease, unspecified Status: Acute Assessment and Plan: She has obstructive sleep apnea, has not used her device in a long time, so long that she cannot remember when it was last working. She was tested and treated out of her balloon seller's office. Subjective Date/time seen: 09/08/19 17:39 Review of Systems Review of Systems: All systems reviewed & are unremarkable except as noted in HPI and below (HPI) Exam Const: General: comfortable and no acute distress Other: Morbidly obese HENMT: Mouth: Yes dry mucous membranes Other: Mallampati III crowded airway Eyes: General: appearance normal, both eyes and all related structures Neck: Neck: no JVD Lymphatic: lymphadenopathy not noted Resp: Effort & Inspection: normal respiratory effort Auscultation: diminished lung sounds Cardio: Rate: regular rate Rhythm: regular rhythm Heart sounds: S1 normal heart sound present, S2 normal heart sound present, Murmur heart sound present (systolic III/) and no rubs GI: Inspection: obesity Auscultation: normal bowel sounds Rectal Exam: deferred Extrem: General: no clubbing and pedal edema (mild resolving erythema L lower anterior leg) Psych: Mental Status: mental status grossly normal Objective Data Vital Signs Vital Signs: Vital Signs - 24 hr 09/07/19 19:49 09/07/19 19:52 09/07/19 19:59 Temperature Pulse Rate 108 H 94 Respiratory Rate 18 18 Blood Pressure Pulse Oximetry 92 09/07/19 20:38 09/07/19 21:45 09/07/19 22:00 Temperature 36.2 C L Pulse Rate 93
[2019-09-09] VITALS (11 sets, daily range): BP systolic 103–117; BP diastolic 42–65; PULSE 79–106; RESP 18; TEMP 36.6–37.1; O2SAT 93–100
[2019-09-09] MEDS: IPRATROPIUM BR 0.02% INH SOLN 0.5 MG/2.5 ML VIAL INHALATION ×3 (01:46→13:10)
[2019-09-09] MEDS: ALBUTEROL SULFATE NEB 2.5 MG/0.5 ML INH 5 MG INHALATION ×3 (01:46→13:10)
[2019-09-09] MEDS: LEVOTHYROXINE SODIUM 50 MCG TABLET PO (06:33)
[2019-09-09 06:50] LABS: Blood Urea Nitrogen 26 mg/dL (7-17); Calcium 8.1 mg/dL (8.4-10.2); Carbon Dioxide > 40 mmol/L (22-30); Chloride 94 mmol/L (98-107); Estimated Glomerular Filt Rate > 60; Glucose 115 mg/dL (65-105); Potassium 4.3 mmol/L (3.4-5.0); Sodium 137 mmol/L (137-145)
--- NOTE | 2019-09-09 08:35 | PC.NURSE ---
Per Carla Florian infection control nurse, patient is to be taken off isolation.
[2019-09-09] MEDS: SACCHAROMYCES BOULARDII 250 MG CAPSULE PO (08:59)
[2019-09-09] MEDS: ENALAPRIL MALEATE 2.5 MG TABLET PO (08:59)
[2019-09-09] MEDS: FLUCONAZOLE 100 MG TABLET 200 MG PO (08:59)
[2019-09-09] MEDS: DULoxetine HCL 30 MG CAPSULE.DR PO (08:59)
[2019-09-09] MEDS: LIOTHYRONINE SODIUM 5 MCG TABLET PO (08:59)
[2019-09-09] MEDS: ACIDOPHILUS/BULGARICUS CHEWABLE TABLET 1 TABLET PO (08:59)
[2019-09-09] MEDS: ENOXAPARIN 40 MG/0.4 ML SYRINGE SUB-Q (08:59)
[2019-09-09] MEDS: DOXYCYCLINE HYCLATE 100 MG TABLET PO (08:59)
[2019-09-09] MEDS: POLYSACCHARIDE IRON COMPLEX 150 MG CAPSULE PO (08:59)
[2019-09-09] MEDS: carvediloL 6.25 MG TABLET PO (09:00)
[2019-09-09] MEDS: FUROSEMIDE 40 MG TABLET PO (09:01)
[2019-09-09] MEDS: BETAMETHASONE/CLOTRIMAZOLE CR 15 GM TUBE 1 APPLIC TOPICAL (09:01)
[2019-09-09] MEDS: TOLNAFTATE 1% POWDER 45 GM BTL 1 APPLIC TOPICAL (09:01)
--- NOTE | 2019-09-09 11:54 | PM.DS ---
DS: Admitting Diagnosis Admitting Diagnosis Admitting Diagnosis: Heart failure, unspecified DS: Discharge Diagnosis Discharge Diagnosis (1) Discharge planning issues: Code(s): Z02.9 - Encounter for administrative examinations, unspecified Status: Acute Assessment and Plan: She has a bed available 09/08/19 at [facility]. Insurance authorization approved her SNF placement and she will be discharged today (2) Pneumonia due to Staphylococcus: Code(s): J15.20 - Pneumonia due to staphylococcus, unspecified Status: Acute Assessment and Plan: Sputum culture was ordered due to severe COPD exacerbation and demonstrated moderate growth of MRSA. Susceptibilities to gentamicin, tetracycline, Bactrim and vancomycin. She was on agumentin for empiric coverage which was initiated 09/03/19. Discontinue augmentin and began vancomycin on 09/07/2019. Discussed the patient with Dr. Hernandez drapery worker, who agrees with discharge on doxycycline p.o. for another 5 days for the treatment of her MRSA sputum/pneumonia The patient is otherwise feeling well this time without any concerns or issues. She is 100% on room air and she has been using her BiPAP at night without any issues. (3) Acute respiratory failure with hypoxia and hypercarbia: Code(s): J96.01 - Acute respiratory failure with hypoxia; J96.02 - Acute respiratory failure with hypercapnia Status: Acute Assessment and Plan: ABG was ordered as the pt was somnolent 09/02/19 and revealed respiratory acidosis with pH 7.247 and pCO2 90.3. She was placed on BiPAP. pH normalized to 7.387 with BiPAP therapy. She likely has chronic CO2 retention and is compensating appropriately as clinically improved. She is tolerating 2L per nasal cannula well during the day. Her acute on chronic respiratory failure is likely secondary to severe aortic stenosis, CHF exacerbation, COPD exacerbation, untreated ANNE (stopped using CPAP 2-3 years ago), and obesity hypoventilation syndrome. I discussed the case with Dr. Hernandez and she is a candidate for Trilogy. The patient will have to use a BiPAP upon discharge to [facility], then when she is discharged back to her assisted living facility she can be given a trilogy at that time. I have talked with respiratory about this and communication has been placed about needing trilogy upon discharge back to assisted living facility. Plan to continue BiPAP at night and with naps. She is tolerating BiPAP therapy well. She was weaned to room air during the day with good oxygen saturations. Continue supplemental oxygen as needed to maintain SPO2 >90%. (4) COPD exacerbation: Code(s): J44.1 - Chronic obstructive pulmonary disease with (acute) exacerbation Status: Acute Assessment and Plan: She had evidence of wheezing to lung auscultation. ABG reveals hypercapnia and she likely has a component of chronic hypercapnia although I have no records for review at this time. Continue scheduled nebulized bronchodilators Q6HR. Steriods were discontinued 09/06/19 due to presence of budding yeast on sputum culture. C ontinue supplemental oxygen as needed to achieve a pulse oxygen saturation of 90%. Wean oxygen as tolerated. (5) Acute exacerbation of congestive heart failure: Qualifiers: Heart failure type: unspecified Qualified Code(s): I50.9 - Heart failure, unspecified Code(s): I50.9 - Heart failure, unspecified Status: Acute Assessment and Plan: She endorsed progressively worsening dyspnea over the past three days prior to admission with increased lower extremity swelling. CXR revealed cardiomegaly with congestion, suspicious for pulmonary edema with small pleural effusion
--- NOTE | 2019-09-09 15:38 | PCRCNOTE ---
IN REGARDS TO HOME TRILOGY UNIT, PT IS APPROVED THRU [facility]. ALTHOUGH, SINCE THE PT IS GOING TO SNF SHE WILL BE USING A BIPAP UNIT PROVIDED BY THE SNF DURING HER STAY THERE. UPON DISCHARGE FROM THE SNF TO HOME, THEY WILL ARRANGE THE TRILOGY UNIT WITH EMILY GUTHRIE AT [phone]. THIS INFO WAS PROVIDED BY AMAR[facility] IN CARE COORDINATION. I RELAYED THIS INFO TO EMILY AT [facility].
== END 2019-09-09 15:00 | DRG 205 ==
LOC: ANHED 14:50 → ANHIMU 18:24 → ANH3MEDSUR 09-05 17:56 → ANHIMU 09-11 15:25
PROVIDERS: Physician Assistant; Admitting Provider Internal Medicine; Emergency Provider Emergency Medicine; PCP Internal Medicine; Visit Provider Physician Assistant
DX: E66.2 Morbid (severe) obesity with alveolar hypoventilation (principal); J15.212 Pneumonia due to Methicillin resistant Staphylococcus aureus; J96.21 Acute and chronic respiratory failure with hypoxia; J96.22 Acute and chronic respiratory failure with hypercapnia; J44.1 Chronic obstructive pulmonary disease with (acute) exacerbation; Z68.44 Body mass index [BMI] 60.0-69.9, adult; B37.89 Other sites of candidiasis; J44.0 Chronic obstructive pulmonary disease with (acute) lower respiratory infection; I11.0 Hypertensive heart disease with heart failure; I50.9 Heart failure, unspecified; Z11.59 Encounter for screening for other viral diseases; I35.0 Nonrheumatic aortic (valve) stenosis; R53.81 Other malaise; E03.9 Hypothyroidism, unspecified; B37.2 Candidiasis of skin and nail; D50.9 Iron deficiency anemia, unspecified; F41.8 Other specified anxiety disorders; R73.03 Prediabetes; Z90.710 Acquired absence of both cervix and uterus
CPT/HCPCS: 36415; 36600; 71045; 80048; 80053; 81001; 82375; 82607; 82746; 82805; 83036; 83050; 83605; 83735; 83880; 84443; 84484; 85025; 85027; 87040; 87070; 87147; 87186; 87205; 87635; 93005; 93970; 94002; 94003; 94640; 96374; 96375; 96376; 97110; 97161; 97166; 97530; 99285; A9270; C8929; C9803; G0378; J1650; J1940; J2930; J3370; Q9957; U0003

== ENCOUNTER 2021-03-29 19:07 | Inpatient (IN) | payer MEDICARE, SELFPAY ==
[2021-03-29] VITALS (7 sets, daily range): BP systolic 91–156; BP diastolic 46–116; PULSE 85–100; RESP 12–21; TEMP 36.8; O2SAT 95–98
--- NOTE | ~2021-03-29 | XR_ITS ---
EXAMINATION: XR abdomen/kub 1V EXAM DATE: 03/30/2021 14:37 INDICATION: Right ureteral stone, surgery planning . TECHNIQUE: Frontal projection(s) of the abdomen for interpretation. Correlation is made to CT abdomen pelvis 03/29/2021. FINDINGS: Probable identification of a large right renal pelvic stone and there is a left double-J u reteral stent in position, difficult to identify left nephrolithiasis, there is overlying moderate am ount of colonic stool and gas. Advanced lumbar spondylosis. IMPRESSION: 1. Left ureteral stent in position. 2. Large right renal pelvic stone. Reviewed, dictated and finalized at location A. FIC SAFETY ADMINISTRATOR
--- NOTE | ~2021-03-29 | XR_ITS ---
XR chest 1V DATE: 03/29/2021 21:52 INDICATION: Weakness TECHNIQUE: AP chest COMPARISON: 09/02/2019 portable AP chest FINDINGS: Heart size appears borderline, not optimally evaluated on AP projection because of magnific ation. There is aortic arch calcification and mild tortuosity. Mild infiltrate or atelectasis at the left lower lung, primarily left lower lobe. The lungs otherwise appear clear. Dextro scoliosis and degenerative spurring of the thoracic spine. Severe bilateral glenohumeral osteo arthritis. IMPRESSION: Mild left lower lobe infiltrate and/or atelectasis Reviewed, dictated and finalized at location A. UNICATIONS DIRECTOR
--- NOTE | ~2021-03-29 | XR_ITS ---
EXAMINATION: XR retrograde pyelo w/stent LT DATE: 03/30/2021 04:10 INDICATION: Left internal ureteral stent placement TECHNIQUE: Fluoroscopic images from a left internal ureteral stent placement are submitted for review . 29 seconds of fluoroscopy time. 5 fluoroscopic images FINDINGS: There is a left double-J internal ureteral stent projecting in expected position, with proximal [place] loop at the level of the renal pelvis and distal loop in the pelvis within the bladder lumen. IMPRESSION: 1. Left internal ureteral stent placement. Please refer to real-time procedural findings for detail s. Reviewed, dictated and finalized at location B. ONER HAND IMPRESSION: 1. Left internal ureteral stent placement. Please refer to real-time procedur al findings for details.
--- NOTE | ~2021-03-29 | CT_ITS ---
EXAMINATION: CT brain wo con DATE: 03/29/2021 21:50 INDICATION: Increased confusion. Patient screaming, uncooperative. TECHNIQUE: Computed tomography (CT) of the head was performed without intravenous contrast. The mA wa s adjusted according to patient size. Iterative reconstruction technique was employed. Exam dose: 68 1.00 mGy-cm total exam DLP. COMPARISON: None FINDINGS: Status post right frontal craniotomy with right frontal bone flap secured by plates and scr ews. There is underlying chronic right frontal encephalomalacia Bilateral vertebral artery and carotid siphon internal carotid artery calcifications. There is nonspe cific diminished attenuation of cerebral white matter, likely due to chronic small vessel ischemic ch anges. No intracranial mass lesion or hemorrhage, midline shift or mass effect. No recent cerebrovascular accident is noted. CT is not sensitive for detection of hyperacute nonhemor rhagic cerebrovascular infarct. No subdural or epidural hematoma is detected. No skull fracture or bone destruction is evident. The mastoid air cells and paranasal sinuses are nor josh developed and aerated. IMPRESSION: Status post right frontal craniotomy Prominent right chronic frontal encephalomalacia Cerebral atherosclerosis and chronic small vessel ischemic changes of the cerebral white matter Reviewed, dictated and finalized at Location A. Reviewed, dictated and finalized at location A. MOTOR OPERATOR IMPRESSION: Status post right frontal craniotomy Prominent right chronic frontal encephalomalacia Cerebral atherosclerosis and chronic small vessel ischemic changes of the cereb ral white matter
--- NOTE | ~2021-03-29 | CT_ITS ---
EXAMINATION: CT abdomen pelvis wo con DATE: 03/29/2021 23:36 INDICATION: Acute renal failure TECHNIQUE: Computed tomography (CT) of the abdomen and pelvis was performed without intravenous contr ast. Automated exposure control and iterative reconstruction technique were employed. Exam dose: 127 9.17 mGy-cm total exam DLP. COMPARISON: None. FINDINGS: There is scattered areas of mild discoid atelectasis or scarring at both lower lobes. Starla l heart size. No pericardial or pleural effusion. Small sliding hiatal hernia. There are multiple faceted gallstones measuring approximately 13 mm dimension. The gallbladder is mod erately distended but no gallbladder wall thickening nor pericholecystic fluid or fat stranding are p resent. No hepatic, splenic, pancreatic, and adrenal or renal space-occupying mass lesion is evident. There are numerous bilateral renal calculi including calculi in the dependent aspect of each renal pe lvis, especially on the right. There is a 6 x 7.5 mm proximal left ureteral calculus with mild to moderate left hydroureteronephrosi s. No urinary bladder calculus. The uterus and adnexal areas are unremarkable. There is prominent amount of fecal material in the rectosigmoid area. Diverticulosis of the sigmoid a nd descending colon; no CT evidence of diverticulitis. Normal appendix. No bowel obstruction or intraperitoneal free air is detected. There is atherosclerotic calcification of the abdominal aorta and iliac arteries but no aneurysm. The re are shotty periaortic and aortocaval and iliac and inguinal nonenlarged lymph nodes, not likely of clinical significance. Diffuse idiopathic skeletal hyperostosis of the thoracic spine. There is fusion at the L1-L4 disc spaces. There is moderately severe degenerative disease at L4-5. Th ere is very prominent degenerative change at the apophyseal joints. Severe osteoarthritic change at the hip joints. There is avascular necrosis of the left femoral head, prominent flattening deformity. IMPRESSION: 6 x 7.5 mm proximal left ureteral calculus with mild/moderate left hydroureteronephrosis Prominent bilateral nephrolithiasis Rectosigmoid fecal impaction Diverticulosis of the left colon; no CT evidence of diverticulitis Normal appendix Cholelithiasis Small sliding hiatal hernia Avascular necrosis and prominent secondary osteoarthritis of the left hip joint Osteoarthritis of right hip joint Fusion at L1-L4 Diffuse idiopathic skeletal hyperostosis of the thoracic spine Reviewed, dictated and finalized at [facility] Reviewed, dictated and finalized at [facility] [employer]GER
--- NOTE | 2021-03-29 20:58 | ECG_ITS ---
Measurements Intervals [place] Rate: 99 P: 70 MS: 152 QRS: 64 QRSD: 77 T: 61 QT: 318 QTc: 408 Interpretive Statements SINUS RHYTHM BASELINE ARTIFACT- I, II, III, AVR, AVL, AVF, V1-V6 NORMAL ECG Electronically Signed On 03-30-2021 8:28:20 RETAIL SECURITY PROFESSIONAL by Nick Arreola D.O.
[2021-03-29 21:22] LABS: Basophils Absolute Auto 0.1 K/mm3 (0.0-0.1); Basophils Percent Auto 0.6 % (0.2-1.2); Eosinophils Absolute Auto 0.2 K/mm3 (0-0.3); Eosinophils Percent Auto 1.3 % (0-4.4); Hematocrit 35.8 % (37.0-47.0); Hemoglobin 11.2 g/dL (12.0-15.0); Immature Granulocyte Percent A 0.6 % (0-0.5); Lymphocytes Absolute Auto 1.71 K/mm3 (0.9-3.2); Lymphocytes Percent Auto 9.5 % (18.3-44.2); Mean Corpuscular HGB Conc 31.3 g/dl (32-36); Mean Corpuscular Hemoglobin 28.6 pg (26-34); Mean Corpuscular Volume 91.3 fl (80-100); Mean Platelet Volume 9.3 fl (7.4-10.4); Monocytes Percent Auto 5.5 % (2.6-8.5); Neutrophils Absolute Auto 14.9 K/mm3 (1.3-6.7); Neutrophils Percent Auto 82.5 % (45.5-73.1); Platelet Count Result 389 k/mm3 (150-375); Red Blood Count 3.92 M/mm3 (4.2-5.4); Red Cell Distribution Width 16.5 % (11.5-14.5); White Blood Count 18.1 K/mm3 (4.5-10.0)
[2021-03-29 21:38] LABS: INR 1.2; Prothrombin Time 14.7 Seconds (11.1-14.7)
[2021-03-29 21:39] LABS: Partial Thromboplastin Time 30.3 SECONDS (22.3-36.8)
[2021-03-29] MEDS: SODIUM CHLORIDE 0.9% IV 1,000 ML 999 ML IV CONT (22:24)
[2021-03-29 22:48] LABS: Lactic Acid Reflex 1.1 mmol/L (0.7-2.1)
[2021-03-29 22:52] LABS: Alanine Aminotransferase 17 U/L (4-35); Albumin Level 3.7 g/dL (3.5-5.1); Alkaline Phosphatase 102 U/L (38-126); Anion Gap 11 mmol/L (8-16); Aspartate Amino Transferase 32 U/L (14-36); Bilirubin,Total 0.6 mg/dL (0.2-1.3); Blood Urea Nitrogen 60 mg/dL (7-17); Calcium 9.7 mg/dL (8.4-10.2); Carbon Dioxide 20 mmol/L (22-30); Chloride 108 mmol/L (98-107); Estimated CRCL calculation 10 ml/min; Estimated Glomerular Filt Rate 8; Glucose 131 mg/dL (65-110); Potassium 6.6 mmol/L (3.4-5.0); Sodium 139 mmol/L (137-145)
[2021-03-29 23:00] LABS: Troponin I < 0.012 ng/mL (0.000-0.034)
--- NOTE | 2021-03-29 23:11 | ED.GENADULT ---
HPI - General Adult General Chief complaint: Altered Mental Status Stated complaint: ams Time Seen by Provider: 03/29/21 21:20 History of Present Illness HPI narrative: Patient 80-year-old female presents the emergency department with chief complaint of generalized weakness. Patient is a resident of a local skilled nursing in [place] and was sent to our emergency department after they have noticed that she has been less active and complaining that her whole body hurts. Patient denies fever denies any complaints upon initial evaluation does state that she feels a little dry. Related Data Home Medications Medication Instructions Recorded Confirmed Caltrate 600 plus D 1 tablet PO BID 09/02/19 09/02/19 Lactobacillus acidophilus 2 cap PO BID 09/02/19 09/02/19 Multi-Tong 1 tablet PO DAILY 09/02/19 09/02/19 albuterol sulfate 2.5 mg INHALATION Q6H 09/02/19 09/02/19 clotrimazole-betamethasone 1 applic TOPICAL BID 09/02/19 09/02/19 duloxetine 30 mg PO DAILY 09/02/19 09/02/19 enalapril maleate 2.5 mg PO DAILY 09/02/19 09/02/19 fish eyq-zycnk-4-vit C-vit E 2.5 g PO DAILY 09/02/19 09/02/19 furosemide 40 mg PO DAILY 09/02/19 09/02/19 glucosamine-chondroitin [Osteo 1 tablet PO DAILY 09/02/19 09/02/19 Bi-Flex] levothyroxine 50 mcg PO DAILY 09/02/19 09/02/19 liothyronine 5 mcg PO DAILY 09/02/19 09/02/19 polysaccharide iron complex 150 mg PO DAILY 09/02/19 09/02/19 [Ferrex 150] Allergies Allergy/AdvReac Type Severity Reaction Status Date / Time pregabalin [From Lyrica] Allergy Unknown Verified 09/02/19 11:45 Sulfa (Sulfonamide Allergy Unknown Verified 09/02/19 11:45 Antibiotics) phenytoin [From Dilantin] AdvReac Unknown Verified 09/02/19 11:45 Review of Systems Review of Systems: A 10 system review of systems was completed on the patient and is negative except for what is stated in the HPI. Nursing and ancillary documentation was reviewed. [facility] Past Medical History Medical History Aortic stenosis Reportedly she has severe aortic stenosis and is followed by a clinical lab specialist in [place]. Apparently she has been deemed not a surgical candidate at this time due to her other medical conditions. Brain aneurysm Chronic obstructive pulmonary disease Congestive heart failure Depression with anxiety Hypertension Hypothyroidism Iron deficiency anemia Morbid obesity ANNE and COPD overlap syndrome Surgical History Surgical History History of craniotomy Either for an aneurysm or AVM, was difficult to understand what she was saying. History of hysterectomy Family History Family History Father Acute myocardial infarction Social History Social History Social History: The patient lives at [facility] in [place]. 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 She used to ?smoke a lot? and quit several years ago. She denies alcohol and illicit substance use. Her son, Bal Hernandez, is her surrogate decision maker. She wishes to be a full code. Substance use type: unknown Gender identity (if verbalized by the patient): Female Sexual Orientation (if Verbalized by the Patient): Straight or Heterosexual Spiritual care concerns: No Exam Narrative: GENERAL: Well-appearing, well-nourished, and in no acute distress. HEAD: Normocephalic, atraumatic. EYES: PERRLA and EOMI. ENT: Nares clear, no rhinorrhea or epistaxis. Dry membranes moist. NECK: Supple. CHEST: Clear to auscultation. No respiratory distress. HEART: Regular rate and rhythm. No murmur heard. Normal peripheral pulses. ABDOMEN: Soft, nontender, nondistended, normal active bowel sounds. EXTREMITIES: Normal range of motion. No edema. SKIN: Warm, dry, no rash. NEURO: No focal deficits. Alert and oriented x3. PS
[2021-03-29 23:17] LABS: Influenza A QL RT-PCR Negative (Negative); Influenza B QL RT-PCR Negative (Negative); SARS-CoV-2 RNA PCR Negative
[2021-03-30] VITALS (19 sets, daily range): BP systolic 68–114; BP diastolic 37–81; PULSE 89–107; RESP 13–28; TEMP 36.3–37.2; O2SAT 94–100; BMI 47.3
[2021-03-30] MEDS: SODIUM CHLORIDE 0.9% IV 1,000 ML 999 ML IV CONT (00:55)
[2021-03-30] MEDS: SODIUM BICARBONATE 8.4% 50 MEQ/50 ML SYRINGE IV PUSH (00:55)
[2021-03-30] MEDS: DEXTROSE 50% 25 GM/50 ML SYRINGE IV PUSH (00:57)
[2021-03-30] MEDS: INSULIN HUMAN REGULAR (*BKC) 100 UNITS/ML 10 UNITS IV PUSH (00:58)
[2021-03-30] MEDS: CALCIUM GLUCONATE 1,000 MG/10 ML VIAL 1000 MG IV PUSH (01:02)
[2021-03-30 01:08] LABS: Add Urine Microscopic? YES; Appearance Urine Turbid (Clear); Bacteria Urine 4+ /hpf; Bilirubin Urine Negative (Negative); Blood Urine 1+ (Negative); Color Urine Yellow (Yellow); Glucose Urine UA Negative (Negative); Ketones Urine Trace mg/dL (Negative); Leukocyte Esterase Ur 2+ LEU/UL (Negative); Nitrate Urine Negative (Negative); Protein Urine 2+ mg/dL (Negative); RBC Urine 21-50 /hpf (0-2); Specific Grav Ur 1.017 (1.001-1.035); Urobilinogen Urine Negative mg/dL (<2.0); WBC Clumps Urine Present /HPF; WBC Urine >75 /hpf
[2021-03-30] MEDS: SODIUM POLYSTYRENE SULFONONATE 15 GM/60 ML BTL 30 GM PO (01:13)
[2021-03-30 02:16] LABS: Potassium 4.8 mmol/L (3.4-5.0)
--- NOTE | 2021-03-30 02:39 | WPDURCON ---
Assessment and Plan Additional Plan 80 year old woman with bilateral nephrolithiasis and a left proximal ureteral stone with moderate hydronephrosis. To OR for cystoscopy and bilateral ureteral stent placement. Rocephin administered in ER. Consent obtained from POA (son in law) due to confusion. Admit to hospitalist. Urology Consult Note HPI Date Seen: 03/30/21 Requesting Physician: Wayne Mcmullen MD Primary Care Provider: Kalie Haq, Consult Narrative Narrative: Dasia Hernandez is a 80 year old female brought [facility] the [facility] and found to be hypotensive, hyperkalemic and azotemic. She underwent CT scan which demonstrated bilateral nephrolithiasis with a left proximal ureteral stone and moderate hydronephrosis, her urine on UA demonstrates LE+ and she has a significant leukocytosis. On examination, she is confused and no oriented to place or time. She denies significant pain at this time. Review of Systems Review of Systems: ROS unobtainable: Yes unobtainable due to mental status PMFSH Past Medical History Medical History Aortic stenosis Reportedly she has severe aortic stenosis and is followed by a electronic imager in [place]. Apparently she has been deemed not a surgical candidate at this time due to her other medical conditions. Brain aneurysm Chronic obstructive pulmonary disease Congestive heart failure Depression with anxiety Hypertension Hypothyroidism Iron deficiency anemia Morbid obesity ANNE and COPD overlap syndrome Surgical History Surgical History History of craniotomy Either for an aneurysm or AVM, was difficult to understand what she was saying. History of hysterectomy Family History Family History Father Acute myocardial infarction Social History Social History Social History: The patient lives at [facility] in [place]. 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 She used to ?smoke a lot? and quit several years ago. She denies alcohol and illicit substance use. Her son, Bal Hernandez, is her surrogate decision maker. She wishes to be a full code. Substance use type: unknown Gender identity (if verbalized by the patient): Female Sexual Orientation (if Verbalized by the Patient): Straight or Heterosexual Spiritual care concerns: No Meds Home Medications and Allergies Home Medications Medication Instructions Recorded Confirmed Type Caltrate 600 plus D 1 tablet PO BID 09/02/19 09/02/19 History Lactobacillus acidophilus 2 cap PO BID 09/02/19 09/02/19 History Multi-Tong 1 tablet PO DAILY 09/02/19 09/02/19 History albuterol sulfate 2.5 mg INHALATION Q6H 09/02/19 09/02/19 History clotrimazole-betamethasone 1 applic TOPICAL BID 09/02/19 09/02/19 History duloxetine 30 mg PO DAILY 09/02/19 09/02/19 History enalapril maleate 2.5 mg PO DAILY 09/02/19 09/02/19 History fish ahp-[id number]-1-vit C-vit E 2.5 g PO DAILY 09/02/19 09/02/19 History furosemide 40 mg PO DAILY 09/02/19 09/02/19 History glucosamine-chondroitin [Osteo 1 tablet PO DAILY 09/02/19 09/02/19 History Bi-Flex] levothyroxine 50 mcg PO DAILY 09/02/19 09/02/19 History liothyronine 5 mcg PO DAILY 09/02/19 09/02/19 History polysaccharide iron complex 150 mg PO DAILY 09/02/19 09/02/19 History [Ferrex 150] Saccharomyces boulardii [Florastor] 250 mg PO BID 7 Days #14 cap 09/09/19 Rx acetaminophen-codeine 1 tablet PO BID #10 tablet 09/09/19 Rx carvedilol [Coreg] 6.25 mg PO Q12HR 30 Days #60 tablet 09/09/19 Rx clotrimazole-betamethasone 1 applic TOPICAL BID 30 Days #15 gm 09/09/19 Rx doxycycline hyclate 100 mg PO Q12HR 5 Days #10 tablet 09/09/19 Rx fluconazole [Diflucan] 200 mg PO QAM 2 Days #4 tablet 09/09/19 Rx miconazole nitrate [Aloe
--- NOTE | 2021-03-30 02:42 | WPDANESEPPF ---
Anes - Initial Pre Proc Eval Procedure: b/l stents Date/Time: 03/30/21 02:42 Surgeon: Wayne Mcmullen MD Pre Op Diagnosis: urosepsis Pre Op Diagnosis: ams Patient Data Age: 80 Gender: F Height: 1.55 m Weight: 113.6 kg Last Vital Signs Temp 36.8 C 03/29/21 19:20 Pulse 105 H 03/30/21 02:08 Resp 14 03/30/21 02:08 BP 91/65 L 03/30/21 02:08 Pulse Ox 98 03/30/21 02:08 Allergies Allergy/AdvReac Type Severity Reaction Status Date / Time pregabalin [From Lyrica] Allergy Unknown Verified 09/02/19 11:45 Sulfa (Sulfonamide Allergy Unknown Verified 09/02/19 11:45 Antibiotics) phenytoin [From Dilantin] AdvReac Unknown Verified 09/02/19 11:45 Home Medications Medication Instructions Recorded Confirmed Type Caltrate 600 plus D 1 tablet PO BID 09/02/19 09/02/19 History Lactobacillus acidophilus 2 cap PO BID 09/02/19 09/02/19 History Multi-Tong 1 tablet PO DAILY 09/02/19 09/02/19 History albuterol sulfate 2.5 mg INHALATION Q6H 09/02/19 09/02/19 History clotrimazole-betamethasone 1 applic TOPICAL BID 09/02/19 09/02/19 History duloxetine 30 mg PO DAILY 09/02/19 09/02/19 History enalapril maleate 2.5 mg PO DAILY 09/02/19 09/02/19 History fish hee-jngap-0-vit C-vit E 2.5 g PO DAILY 09/02/19 09/02/19 History furosemide 40 mg PO DAILY 09/02/19 09/02/19 History glucosamine-chondroitin [Osteo 1 tablet PO DAILY 09/02/19 09/02/19 History Bi-Flex] levothyroxine 50 mcg PO DAILY 09/02/19 09/02/19 History liothyronine 5 mcg PO DAILY 09/02/19 09/02/19 History polysaccharide iron complex 150 mg PO DAILY 09/02/19 09/02/19 History [Ferrex 150] Saccharomyces boulardii [Florastor] 250 mg PO BID 7 Days #14 cap 09/09/19 Rx acetaminophen-codeine 1 tablet PO BID #10 tablet 09/09/19 Rx carvedilol [Coreg] 6.25 mg PO Q12HR 30 Days #60 tablet 09/09/19 Rx clotrimazole-betamethasone 1 applic TOPICAL BID 30 Days #15 gm 09/09/19 Rx doxycycline hyclate 100 mg PO Q12HR 5 Days #10 tablet 09/09/19 Rx fluconazole [Diflucan] 200 mg PO QAM 2 Days #4 tablet 09/09/19 Rx miconazole nitrate [Aloe [place] 1 applic TOPICAL Q12HR 30 Days 09/09/19 Rx Antifungal (micon)] #141 gm Laboratory Tests 03/29/21 03/29/21 03/29/21 21:06 21:07 22:26 WBC 18.1 K/mm3 H K/mm3 (4.5-10.0) RBC 3.92 M/mm3 L M/mm3 (4.2-5.4) Hgb 11.2 g/dL L g/dL (12.0-15.0) Hct 35.8 % L % (37.0-47.0) MCV 91.3 fl fl (80-100) MCH 28.6 pg pg (26-34) MCHC 31.3 g/dl L g/dl (32-36) RDW 16.5 % H % (11.5-14.5) Plt Count 389 k/mm3 H D k/mm3 (150-375) MPV 9.3 fl fl (7.4-10.4) Immature Gran % (Auto) 0.6 % H % (0-0.5) Neut % (Auto) 82.5 % H % (45.5-73.1) Lymph % (Auto) 9.5 % L % (18.3-44.2) Marshall % (Auto) 5.5 % % (2.6-8.5) Eos % (Auto) 1.3 % % (0-4.4) Baso % (Auto) 0.6 % % (0.2-1.2) Lymph # (Auto) 1.71 K/mm3 K/mm3 (0.9-3.2) Marshall # (Auto) 1.0 K/mm3 H K/mm3 (0.1-0.6) Eos # (Auto) 0.2 K/mm3 K/mm3 (0-0.3) Baso # (Auto) 0.1 K/mm3 K/mm3 (0.0-0.1) Abs Immat Gran (auto) 0.10 K/mm3 H K/mm3 (0.00-0.031) Absolute Neuts (auto) 14.9 K/mm3 H K/mm3 (1.3-6.7) Absolute Nucleated RBC 0.0 K/mm3 K/mm3 (0.0-0.012) Nucleated RBC % 0.0 % % (0.0-0.2) PT 14.7 Seconds Seconds (11.1-14.7) INR 1.2 APTT 30.3 SECONDS SECONDS (22.3-36.8) Sodium Potassium Chloride Carbon Dioxide Anion Gap BUN Creatinine Estim Creat Clear Calc Estimated GFR Glucose Lactic Acid Calcium Total Bilirubin AST ALT Alkaline Phosphatase Troponin I Total Protein Albumin Urine Color
--- NOTE | 2021-03-30 02:47 | WPDHPUPDATE1 ---
History and Physical Update Update Date/Time: 03/30/21 02:47 History and Physical has been reviewed, including an updated exam of the patient. There are NO changes in the patient's condition. Risks, benefits, and alternatives have been discussed and questions answered. Patient agrees to proceed with procedure.
--- NOTE | 2021-03-30 04:07 | W.PM.PROC2 ---
Procedure Note - Detailed Date of Procedure 03/30/21 Pre-op Diagnosis Left ureteral obstructing stone Post-op Diagnosis same Procedure Performed 1. Cystoscopy and left ureteral stent placement. 2. Bilateral retrograde pyelogram 3. Fluoroscopy with interpretation of images, less than 1 hour Surgeon Wayne Mcmullen MD Anesthesia MAC Indications This is an 80 year old woman brought to [facility] by EMS from her shelter with altered mental status found to have urosepsis, renal failure and hyperkalemia with an obstructing left proximal ureteral stone. She has bilateral nephrolithiasis and we plan for bilateral ureteral stent placement under anesthesia. Findings 1. Severe contractures making access to the bladder exceedingly difficult. 2. Severe cystitis along with large stool ball in rectal vault making it very difficult to encounter and access the ureteral orifices. 3. Appropriate placement of a variable length 6F ureteral access catheter. Inability to place a right ureteral stent as planned. Description of Procedure Informed consent was obtained from POA by telephone by ER nursing. The patient was brought to the operating room and placed on the table in the supine position. She was positioned in a modified lithotomy position after the induction of anesthesia. A call to order was made to confirm patient identity and procedure. Due to the extreme contractures, access was very difficult. We could not advance a rigid cystoscope into the bladder. I advanced a flexible cystoscope into the bladder and pancystoscopy was performed. After significant effort, I was able to find the left ureteral orifice and advanced a glidewire into it. The flexible cystoscope was removed and the wire maintained, a 5F catheter was placed over the wire and a gentle retrograde performed. The wire was replaced and over the wire a variable length stent was advanced and deployed. KUB demonstrated appropriate placement. The flexible cystoscope was replaced and I advanced a wire into the right ureteral orifice. The wire was advanced and a gentle retrograde was performed. The wire was replaced. I then attempted to the advance the 6F ureteral stent, unfortunately a curl was noted in the bladder and when I attempted to correct the wire fell out of the ureter. Given her hypotension and that the right side was not the acute cause of her obstructive pyelonephritis, I aborted further attempts and placed a Colindres with 10 cc of sterile water in the balloon. The patient was awoken from anesthesia and transferred to the PACU. Implants 6F variable length stent Drains Yes (16F Colindres) Packing No Pathology none sent Complications No immediate complications Condition critical Disposition PACU
[2021-03-30] MEDS: LACTATED RINGERS 1,000 ML 30 ML IV CONT ×2 (04:13→04:45)
[2021-03-30] MEDS: PHENYLEPHRINE 1,000 MCG/10 ML SYRINGE 100 MCG IV PUSH (04:41)
--- NOTE | 2021-03-30 05:46 | ADMGEN ---
This patient, Dasia Hernandez, was admitted to [facility] on 03/30/21 at 0530. Patient/family oriented to hospital policies and general routines including ID bracelet, bed and alarms, visiting hours, pain management, procedures, bathroom and other care routines, personal items, smoking policy, room service/diet, and visiting hours. Information on how to activate the Rapid Response Team has been discussed. Patient/Family are encouraged to report perceived risks to care and to ask questions if they do not understand what they are told or what they should do.
[2021-03-30] MEDS: SODIUM CHLORIDE 0.9% IV 1,000 ML 125 ML IV CONT ×3 (06:03→22:54)
--- NOTE | 2021-03-30 06:20 | PM.IMHP ---
H&P: HPI History of Present Illness Date/Time: 03/30/21 06:20 Chief Complaint: Generalized weakness Narrative: Patient is a 80-year-old female who presents to the emergency department with chief complaint of generalized weakness. Patient is a half-way resident in [place]. She was noted to be more confused and generally weak and hence brought into the hospital for further evaluation. She was noted to have borderline blood pressure and labs revealed acute renal failure with creatinine of 5.1 and hyperkalemia of 6.6. She got treated for hyperkalemia and further evaluation of renal failure was done with CT scan which showed obstructing left ureteral stone with left hydronephrosis. There was also associated urinary tract infection. Urology was consulted and with suspected sepsis urology took her to the OR for ureteral stent placement and extraction of the stone. There is also noted bilateral nephrolithiasis and attempt to put right ureteral stent was made but was unable to. She is evaluated by me after her surgery. Review of Systems Review of Systems: - CONSTITUTIONAL: Denies weight loss, fever and chills. - HEENT: Denies changes in vision and hearing - RESPIRATORY: Denies SOB and cough. - CV: Denies palpitations and CP. - GI: Denies abdominal pain, nausea, vomiting and diarrhea. - : Denies dysuria and urinary frequency. - MSK: Denies myalgia and joint pain. - SKIN: Denies rash and pruritus. - NEUROLOGICAL: Denies headache and syncope. - PSYCHIATRIC: Denies recent changes in mood. Denies anxiety and depression. ROS unobtainable: Yes other (Review of system under arrival due to confusion) Constitutional: Constitutional: Reports fatigue and Reports weakness Neurologic: Reports weakness Endocrine: Endocrine: Reports fatigue [facility] Past Medical History Medical History Aortic stenosis Reportedly she has severe aortic stenosis and is followed by a patient liaison in [place]. Apparently she has been deemed not a surgical candidate at this time due to her other medical conditions. Brain aneurysm Chronic obstructive pulmonary disease Congestive heart failure Depression with anxiety Hypertension Hypothyroidism Iron deficiency anemia Morbid obesity ANNE and COPD overlap syndrome Surgical History Surgical History History of craniotomy Either for an aneurysm or AVM, was difficult to understand what she was saying. History of hysterectomy Family History Family History Father Acute myocardial infarction Social History Social History Social History: The patient lives at [facility] in [place]. 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 She used to ?smoke a lot? and quit several years ago. She denies alcohol and illicit substance use. Her son, Bal Hernandez, is her surrogate decision maker. She wishes to be a full code. Smoking packs per day: 1 Smoking cigarettes per day: 20.0 Years smoked: 10 Smoking pack-years: 10.00 Smoking status: Former smoker Substance use type: unknown Gender identity (if verbalized by the patient): Female Sexual Orientation (if Verbalized by the Patient): Straight or Heterosexual Spiritual care concerns: No Meds Home Medications and Allergies Home Medications Medication Instructions Recorded Confirmed Type Caltrate 600 plus D 1 tablet PO BID 09/02/19 09/02/19 History Lactobacillus acidophilus 2 cap PO BID 09/02/19 09/02/19 History Multi-Tong 1 tablet PO DAILY 09/02/19 09/02/19 History albuterol sulfate 2.5 mg INHALATION Q6H 09/02/19 09/02/19 History clotrimazole-betamethasone 1 applic TOPICAL BID 09/02/19 09/02/19 History duloxetine 30 mg PO DAILY 09/02/19 09/02/19 History enalapril maleate 2.5 mg PO DAILY
--- NOTE | 2021-03-30 12:14 | PM.IMPN ---
Progress Note: A&P Assessment and Plan (1) Sepsis: Code(s): A41.9 - Sepsis, unspecified organism Status: Acute Assessment and Plan: Severe sepsis with leukocytosis, borderline blood pressure source likely UTI. Chest x-ray also shows left lower lobe infiltrate but CT scan showing more likely lung scarring. Lactate is normal. Currently on ceftriaxone and azithromycin. COVID screen is negative. Continue current abx. (2) Acute renal failure: Qualifiers: Acute renal failure type: unspecified Qualified Code(s): N17.9 - Acute kidney failure, unspecified Code(s): N17.9 - Acute kidney failure, unspecified Status: Acute Assessment and Plan: Creatinine 5.1 on admission. She has normal baseline from 2 years ago. Nothing more recent. Colindres secured. Will check BMP today. (3) Acute hyperkalemia: Code(s): E87.5 - Hyperkalemia Status: Acute Assessment and Plan: Potassium 6.6 on admission felt related to the acute kidney injury. Treated appropriately. Repeat potassium normal. Repeat BMP. (4) Ureterolithiasis: Code(s): N20.1 - Calculus of ureter Status: Acute Assessment and Plan: Patient with a 6 x 7.5 mm proximal left ureteral stone with moderate left hydronephrosis. Probable UTI as well. Urology consulted patient underwent stent placement today. She appears to tolerate the procedure well. Further management per Urology. (5) Acute UTI: Code(s): N39.0 - Urinary tract infection, site not specified Status: Acute Assessment and Plan: UA noted. Urine culture collected and pending. Continue Rocephin. Follow up on urine and blood cultures. (6) Pneumonia: Qualifiers: Laterality: unspecified laterality Lung location: unspecified part of lung Pneumonia type: due to unspecified organism Qualified Code(s): J18.9 - Pneumonia, unspecified organism Code(s): J18.9 - Pneumonia, unspecified organism Status: Acute Assessment and Plan: Chest x-ray shows mild left lower lobe infiltrate and/or atelectasis. Consider pneumonia But CT of the abdomen shows scattered areas of mild discoid atelectasis or scarring in both lower lobes making pneumonia less likely. Will continue Rocephin azithromycin for now. (7) Aortic stenosis: Qualifiers: Cardiac valve disease etiology: etiology unspecified Qualified Code(s): I35.0 - Nonrheumatic aortic (valve) stenosis Code(s): I35.0 - Nonrheumatic aortic (valve) stenosis Status: Acute Assessment and Plan: Echocardiogram in September 2019 showing moderate to severe aortic stenosis with valve area of 1 cm2. Presumably she is not a surgical candidate. Consider repeat echo but will hold off for now. (8) Fecal impaction: Code(s): K56.41 - Fecal impaction Status: Acute Assessment and Plan: Imaging shows fecal impaction. Will perform enema. Start MiraLax. (9) ANNE and COPD overlap syndrome: Code(s): G47.33 - Obstructive sleep apnea (adult) (pediatric); J44.9 - Chronic obstructive pulmonary disease, unspecified Status: Acute Assessment and Plan: Patient with sleep apnea and COPD overlap syndrome. Start CPAP. (10) DVT prophylaxis: Code(s): Z29.9 - Encounter for prophylactic measures, unspecified Status: Acute Assessment and Plan: Heparin Subjective Date/time seen: 03/30/21 12:14 Interval history: 80yo female with dementia, severe and brain aneurysm s/p craniotomy here for generalized weakness and found to have severe sepsis and hyperkalemia. Patient denies chest pain or back pain, She is alert but confused and unable to provide hx. Review of Systems Review of Systems: ROS unobtainable: Yes unobtainable due to mental status Exam Narrative: AF 98.4 95/60 97 28 96% ra Gen - NARD lying semi-recumbent in bed Chest - lungs mario
--- NOTE | 2021-03-30 12:54 | WPDUROPN2 ---
Progress Note: A&P Assessment and Plan (1) Acute UTI: Code(s): N39.0 - Urinary tract infection, site not specified Status: Acute Assessment and Plan: Continue IV antibiotics, tailor to culture results. Will continue to watch at a distance. (2) Ureterolithiasis: Code(s): N20.1 - Calculus of ureter Status: Acute Assessment and Plan: WIll plan definitive stone management once infection is resolved as an outpatient. WIll get KUB to see if stone is visible, then we can schedule an ESWL, otherwise if stone isn't visible we will need to schedule a ureteroscopy with stent exchange. Subjective Subjective Date/Time Seen: 03/30/21 12:54 POD #1 Cystoscopy, left stent placement, bilateral retrograde pyelogram. Patient is lethargic and hypotensive today, but states her pain is improved since stent was placed. Urine Culture is pending. Review of Systems Cardiovascular: Cardiovascular: Denies chest pain Respiratory: Respiratory: Reports no additional respiratory complaints Gastrointestinal: Gastrointestinal: Reports abdominal pain, Denies nausea and Denies vomiting Genitourinary: Genitourinary: Denies hematuria, Denies dysuria, Denies pelvic pain, Reports flank pain and Denies urinary urgency Exam Resp: Effort & Inspection: normal respiratory effort Cardio: Rate: regular rate Extrem: General: edema bilateral Objective Data Vital Signs Vital Signs: Vital Signs - 24 hr 03/29/21 19:20 03/29/21 19:22 03/29/21 20:31 Temperature 98.2 F Pulse Rate 97 98 86 Respiratory Rate 12 18 16 Blood Pressure 91/54 L 91/54 L 97/63 L Pulse Oximetry 96 96 98 03/29/21 21:17 03/29/21 21:39 03/29/21 22:17 Temperature Pulse Rate 100 85 91 Respiratory Rate 16 16 17 Blood Pressure 127/116 H 94/46 L 156/86 H Pulse Oximetry 96 98 96 03/29/21 23:31 03/30/21 01:03 03/30/21 01:16 Temperature Pulse Rate 92 100 107 H Respiratory Rate 21 H 13 13 Blood Pressure 105/78 94/49 L 90/37 L Pulse Oximetry 95 97 94 03/30/21 02:08 03/30/21 04:13 03/30/21 04:25 Temperature 98.0 F Pulse Rate 105 H 92 93 Respiratory Rate 14 20 21 H Blood Pressure 91/65 L 114/81 75/44 L Pulse Oximetry 98 99 99 03/30/21 04:40 03/30/21 04:55 03/30/21 05:05 Temperature Pulse Rate 93 96 98 Respiratory Rate 21 H 14 20 Blood Pressure 68/58 L 114/69 99/60 L Pulse Oximetry 100 100 99 03/30/21 05:37 03/30/21 06:00 03/30/21 08:00 Temperature 98.4 F Pulse Rate 99 99 97 Respiratory Rate 28 H Blood Pressure 95/60 L Pulse Oximetry 96 03/30/21 09:03 03/30/21 12:00 Temperature 97.9 F Pulse Rate 93 Respiratory Rate 18 Blood Pressure 98/78 L Pulse Oximetry 96 94 Intake/Output Intake/Output: Intake & Output 03/27/21 03/28/21 03/29/21 03/30/21 23:59 23:59 23:59 23:59 Intake Total 1050 1850 Output Total 40 Balance 1050 1810 Meds/Results Medications: Active Medications Generic Name Dose Route Start Last Admin Trade Name Freq PRN Reason Stop Dose Admin Dextrose 12.5 gm 03/30/21 06:35 Dextrose 50% 25 Gm/50 Ml Syringe IV PUSH PRN PRN Hypoglycemia Protocol Glucagon 1 mg 03/30/21 06:35 Glucagon For Inj 1 Mg Vial IM PRN PRN Hypoglycemia Protocol Glucose 15 gm 03/30/21 06:35 Glucose Oral Gel 15 Gm Of Glucse In 37.5 Gm Tube PO PRN PRN Hypoglycemia Protocol Ceftriaxone Sodium/Dextrose 1 gm in 50 mls @ 100 mls/hr 03/30/21 21:00 Rocephin 1 Gm/D5w 50 Ml IVPB Q24H REGINA Azithromycin 500 mg in 250 mls @ 250 mls/hr 03/30/21 21:00 Zithromax IVPB Q24H REGINA Sodium Chloride 1,000 mls @ 125 mls/hr 03/30/21 02:05 03/30/21 06:03 Normal Saline Iv IV CONT 125 mls/hr .Q8H REGINA Administration Dextrose 1,000 mls @ 100 mls/hr 03/30/21 06:35 Dextrose 5% 1,000 Ml IVPB PRN PRN Hypoglycemia Protocol Morphine Sulfate 4 mg 03/30/21 02:02 Morphine Sulfate (*Crx) 4 Mg/Ml Inj
[2021-03-30 14:54] LABS: Glucose Point of Care 96 mg/dl (65-105)
[2021-03-30] MEDS: SILVERGEL (ELTA) 45 ML 1 APPLIC TOPICAL (17:00)
[2021-03-30 17:22] LABS: Anion Gap 10 mmol/L (8-16); Blood Urea Nitrogen 51 mg/dL (7-17); Calcium 8.8 mg/dL (8.4-10.2); Carbon Dioxide 18 mmol/L (22-30); Chloride 113 mmol/L (98-107); Estimated CRCL calculation 15 ml/min; Estimated Glomerular Filt Rate 13; Glucose 91 mg/dL (65-110); Potassium 5.2 mmol/L (3.4-5.0); Sodium 141 mmol/L (137-145)
[2021-03-30 17:26] LABS: Glucose Point of Care 96 mg/dl (65-105)
[2021-03-30] MEDS: HEPARIN SODIUM 5,000 UNITS/ML VIAL 5000 UNITS SUB-Q (22:54)
[2021-03-31] VITALS (11 sets, daily range): BP systolic 122–132; BP diastolic 55–79; PULSE 87–108; RESP 12–20; TEMP 36–36.9; O2SAT 97–99; BMI 41.3
[2021-03-31 05:33] LABS: Basophils Absolute Auto 0.1 K/mm3 (0.0-0.1); Basophils Percent Auto 0.5 % (0.2-1.2); Eosinophils Absolute Auto 0.3 K/mm3 (0-0.3); Hematocrit 28.2 % (37.0-47.0); Hemoglobin 8.9 g/dL (12.0-15.0); Immature Granulocyte Absolute 0.06 K/mm3 (0.00-0.031); Immature Granulocyte Percent A 0.5 % (0-0.5); Lymphocytes Absolute Auto 2.05 K/mm3 (0.9-3.2); Mean Corpuscular HGB Conc 31.6 g/dl (32-36); Mean Corpuscular Hemoglobin 29.3 pg (26-34); Mean Corpuscular Volume 92.8 fl (80-100); Mean Platelet Volume 9.1 fl (7.4-10.4); Monocytes Absolute Auto 0.8 K/mm3 (0.1-0.6); Monocytes Percent Auto 6.5 % (2.6-8.5); Neutrophils Absolute Auto 9.6 K/mm3 (1.3-6.7); Neutrophils Percent Auto 74.5 % (45.5-73.1); Platelet Count Result 303 k/mm3 (150-375); Red Blood Count 3.04 M/mm3 (4.2-5.4); Red Cell Distribution Width 16.7 % (11.5-14.5); White Blood Count 12.8 K/mm3 (4.5-10.0)
[2021-03-31 05:50] LABS: Alanine Aminotransferase 13 U/L (4-35); Alkaline Phosphatase 80 U/L (38-126); Aspartate Amino Transferase 23 U/L (14-36); Bilirubin,Total 0.4 mg/dL (0.2-1.3); Magnesium 1.6 mg/dL (1.6-2.3); Phosphorus 4.3 mg/dL (2.5-4.5)
[2021-03-31 05:53] LABS: Anion Gap 12 mmol/L (8-16); Blood Urea Nitrogen 42 mg/dL (7-17); Calcium 8.6 mg/dL (8.4-10.2); Carbon Dioxide 17 mmol/L (22-30); Chloride 112 mmol/L (98-107); Estimated CRCL calculation 19 ml/min; Estimated Glomerular Filt Rate 19; Glucose 89 mg/dL (65-110); Potassium 4.3 mmol/L (3.4-5.0); Sodium 141 mmol/L (137-145)
[2021-03-31 07:01] LABS: Folic Acid > 20.0 ng/mL (2.76->20)
--- NOTE | 2021-03-31 07:30 | ADMGEN ---
This patient, Dasia Hernandez, was admitted to [facility] Surg Room 330-02. Patient/family oriented to hospital policies and general routines including ID bracelet, bed and alarms, visiting hours, pain management, procedures, bathroom and other care routines, personal items, smoking policy, room service/diet, and visiting hours. Information on how to activate the Rapid Response Team has been discussed. Patient/Family are encouraged to report perceived risks to care and to ask questions if they do not understand what they are told or what they should do.
[2021-03-31] MEDS: HEPARIN SODIUM 5,000 UNITS/ML VIAL 5000 UNITS SUB-Q ×2 (08:35→23:15)
--- NOTE | 2021-03-31 09:23 | WPDANESPN ---
Anes - Prog Note Post-Op Date/Time: 03/31/21 09:23 Cardiovascular status: normal Respiratory status: normal Airway patency: baseline Mental status: baseline Post-Op hydration status: normal Vital Signs: Last Vital Signs Temp 36.3 C L 03/31/21 08:00 Pulse 102 H 03/31/21 08:00 Resp 18 03/31/21 08:00 BP 132/66 03/31/21 08:00 Pulse Ox 98 03/31/21 08:00 Pain Score (VAS): 3 I/O: Intake & Output 03/30/21 03/31/21 03/31/21 23:59 07:59 15:59 Intake Total 1050 250 Output Total 750 800 Balance 300 -550 Laboratory Tests 03/31/21 05:09 03/31/21 05:09 03/30/21 03/30/21 03/30/21 14:51 15:46 15:59 WBC RBC Hgb Hct MCV MCH MCHC RDW Plt Count MPV Immature Gran % (Auto) Neut % (Auto) Lymph % (Auto) Tucker % (Auto) Eos % (Auto) Baso % (Auto) Lymph # (Auto) Tucker # (Auto) Eos # (Auto) Baso # (Auto) Abs Immat Gran (auto) Absolute Neuts (auto) Absolute Nucleated RBC Nucleated RBC % Sodium 141 Potassium 5.2 H Chloride 113 H Carbon Dioxide 18 L Anion Gap 10 BUN 51 H Creatinine 3.30 H Estim Creat Clear Calc 15 Estimated GFR 13 L Glucose 91 POC Capillary Glucose 96 96 Calcium 8.8 Phosphorus Magnesium Total Bilirubin Direct Bilirubin AST ALT Alkaline Phosphatase Total Protein Albumin Vitamin B12 Folate TSH (Reflex) 03/31/21 03/31/21 03/31/21 05:09 05:09 05:09 WBC 12.8 H RBC 3.04 L Hgb 8.9 L Hct 28.2 L MCV 92.8 MCH 29.3 MCHC 31.6 L RDW 16.7 H Plt Count 303 MPV 9.1 Immature Gran % (Auto) 0.5 Neut % (Auto) 74.5 H Lymph % (Auto) 16.0 L Tucker % (Auto) 6.5 Eos % (Auto) 2.0 Baso % (Auto) 0.5 Lymph # (Auto) 2.05 Tucker # (Auto) 0.8 H Eos # (Auto) 0.3 Baso # (Auto) 0.1 Abs Immat Gran (auto) 0.06 H Absolute Neuts (auto) 9.6 H Absolute Nucleated RBC 0.0 Nucleated RBC % 0.0 Sodium 141 Potassium 4.3 Chloride 112 H Carbon Dioxide 17 L Anion Gap 12 BUN 42 H Creatinine 2.50 H Estim Creat Clear Calc 19 Estimated GFR 19 L Glucose 89 POC Capillary Glucose Calcium 8.6 Phosphorus 4.3 Magnesium 1.6 Total Bilirubin 0.4 Direct Bilirubin 0.0 AST 23 ALT 13 Alkaline Phosphatase 80 Total Protein 6.0 L Albumin 3.0 L Vitamin B12 983.0 H Folate > 20.0 H TSH (Reflex) 03/31/21 05:09 WBC RBC Hgb Hct MCV MCH MCHC RDW Plt Count MPV Immature Gran % (Auto) Neut % (Auto) Lymph % (Auto) Tucker % (Auto) Eos % (Auto) Baso % (Auto) Lymph # (Auto) Tucker # (Auto) Eos # (Auto) Baso # (Auto) Abs Immat Gran (auto) Absolute Neuts (auto) Absolute Nucleated RBC Nucleated RBC % Sodium Potassium Chloride Carbon Dioxide Anion Gap BUN Creatinine Estim Creat Clear Calc Estimated GFR Glucose POC Capillary Glucose Calcium Phosphorus Magnesium Total Bilirubin Direct Bilirubin AST ALT Alkaline Phosphatase Total Protein Albumin Vitamin B12 Folate TSH (Reflex) 3.600 Microbiology 03/29/21 22:58 Blood Blood Culture - Preliminary 03/29/21 22:56 Blood Blood Culture - Preliminary Post-procedural complaints: none Patient Feedback: Patient satisfied with anesthetic care.
--- NOTE | 2021-03-31 09:39 | PCOTNOTE ---
Pt declined OT evaluation at this time reporting fatigue and unable to keep eyes open. Will follow up for evaluation when pt amenable to therapy evaluation.
[2021-03-31] MEDS: SODIUM CHLORIDE 0.9% IV 1,000 ML 125 ML IV CONT ×2 (10:28→18:11)
[2021-03-31] MEDS: FOLIC ACID 1 MG TABLET PO (10:49)
[2021-03-31] MEDS: OMEGA 3 POLYUNSAT FATTY ACIDS 1 GM CAP PO (10:49)
[2021-03-31] MEDS: SODIUM BICARBONATE TAB 650 MG TABLET PO ×2 (10:49→18:08)
[2021-03-31] MEDS: MULTIVITAMINS THERAPEUTIC TAB (*BKC) 1 TABLET PO (10:50)
[2021-03-31] MEDS: ASCORBIC ACID 500 MG TABLET PO (10:50)
[2021-03-31] MEDS: polyethylene glycoL 3350 17 GM POWD.PACK PO (10:50)
[2021-03-31] MEDS: DULoxetine HCL 30 MG CAPSULE.DR PO (10:50)
[2021-03-31] MEDS: FERROUS SULFATE 324 MG TABLET PO (10:50)
--- NOTE | 2021-03-31 13:56 | PM.IMPN ---
Progress Note: A&P Assessment and Plan (1) Sepsis: Code(s): A41.9 - Sepsis, unspecified organism Status: Acute Assessment and Plan: Severe sepsis with leukocytosis, borderline blood pressure source likely UTI. Chest x-ray also shows left lower lobe infiltrate but CT scan showing more likely lung scarring. Lactate is normal. Currently on ceftriaxone and azithromycin. COVID screen is negative. Continue current abx. (2) Acute renal failure: Qualifiers: Acute renal failure type: unspecified Qualified Code(s): N17.9 - Acute kidney failure, unspecified Code(s): N17.9 - Acute kidney failure, unspecified Status: Acute Assessment and Plan: Creatinine 5.1 on admission. She has normal baseline from 2 years ago. Nothing more recent. Colindres secured. [place] related to ATN and from obstructive uropathy. Renal function improving with creatinine 2.5 today. Persistent metabolic acidosis related to the renal failure so will add oral bicarb. (3) Acute hyperkalemia: Code(s): E87.5 - Hyperkalemia Status: Acute Assessment and Plan: Potassium 6.6 on admission felt related to the acute kidney injury. Treated appropriately. Repeat potassium normal. Continue to follow. (4) Ureterolithiasis: Code(s): N20.1 - Calculus of ureter Status: Acute Assessment and Plan: Patient with a 6 x 7.5 mm proximal left ureteral stone with moderate left hydronephrosis. Urology consulted patient underwent stent placement yesterday. She appears to tolerate the procedure well. KUB shows left ureteral stent in position with a large right renal pelvic stone. It was difficult to identify the left nephrolithiasis. Appreciate Urology input. (5) Acute UTI: Code(s): N39.0 - Urinary tract infection, site not specified Status: Acute Assessment and Plan: UA noted. Urine culture growing 50-100 K E coli. Sensitivities pending. Blood cultures no growth to date. Continue Rocephin. Follow up on urine and blood cultures. (6) Pneumonia: Qualifiers: Laterality: unspecified laterality Lung location: unspecified part of lung Pneumonia type: due to unspecified organism Qualified Code(s): J18.9 - Pneumonia, unspecified organism Code(s): J18.9 - Pneumonia, unspecified organism Status: Acute Assessment and Plan: Chest x-ray shows mild left lower lobe infiltrate and/or atelectasis. Consider pneumonia But CT of the abdomen shows scattered areas of mild discoid atelectasis or scarring in both lower lobes making pneumonia less likely. Will continue Rocephin azithromycin for now. (7) Aortic stenosis: Qualifiers: Cardiac valve disease etiology: etiology unspecified Qualified Code(s): I35.0 - Nonrheumatic aortic (valve) stenosis Code(s): I35.0 - Nonrheumatic aortic (valve) stenosis Status: Acute Assessment and Plan: Echocardiogram in September 2019 showing moderate to severe aortic stenosis with valve area of 1 cm2. No clinical indications for repeating echo at this time. Will defer to patient's primary care doctor for further evaluation and treatment prior (8) Fecal impaction: Code(s): K56.41 - Fecal impaction Status: Acute Assessment and Plan: Imaging shows fecal impaction. Soapsuds enema x1 with minimal response. Continue MiraLax. With repeat enema. (9) ANNE and COPD overlap syndrome: Code(s): G47.33 - Obstructive sleep apnea (adult) (pediatric); J44.9 - Chronic obstructive pulmonary disease, unspecified Status: Acute Assessment and Plan: Patient with sleep apnea and COPD overlap syndrome. Continue CPAP. (10) DVT prophylaxis: Code(s): Z29.9 - Encounter for prophylactic measures, unspecified Status: Acute Assessment and Plan: Heparin Subjective Date/time seen: 03/31/21 13:56 Interval history: 80yo female with d
--- NOTE | 2021-03-31 14:59 | WPDUROPN2 ---
Progress Note: A&P Assessment and Plan (1) Acute renal failure: Qualifiers: Acute renal failure type: unspecified Qualified Code(s): N17.9 - Acute kidney failure, unspecified Code(s): N17.9 - Acute kidney failure, unspecified Status: Acute Assessment and Plan: Improving, will watch until returns to baseline. (2) Ureterolithiasis: Code(s): N20.1 - Calculus of ureter Status: Acute Assessment and Plan: Left proximal stone not identified on KUB, stent is in place, large right renal stone noted. I suspect d/t her constipation the stone cannot be identified. She will need a bowel clean out then repeat KUB to determine if a Lithotripsy is possible versus ureteroscopy with stent exchange in a few weeks when she clears her UTI. F/U in the office to repeat urine culture in 1-2 weeks, then surgical planning after KUB is repeated. (3) Acute UTI: Code(s): N39.0 - Urinary tract infection, site not specified Status: Acute Assessment and Plan: Culture is growing E-Coli, continue IV antibiotics, tailor to sensitivity report. Subjective Subjective Date/Time Seen: 03/31/21 14:59 POD #2 Cystoscopy, left stent placement, bilateral retrograde pyelogram. Patient doing remarkably well today, hypotension has resolved, as well as tachypnea. She is much more alert and denies any pain today. WBC and creatinine have improved quite a bit. Urine culture is growing E-Coli, sensitivity is pending. Blood cutlures are pending. Review of Systems Respiratory: Respiratory: Reports no additional respiratory complaints Gastrointestinal: Gastrointestinal: Denies abdominal pain, Denies nausea and Denies vomiting Genitourinary: Genitourinary: Denies hematuria, Denies dysuria, Denies pelvic pain, Denies flank pain, Denies urinary hesitancy and Denies urinary urgency Exam Resp: Effort & Inspection: normal respiratory effort Cardio: Rate: tachycardic GI: GI Palp: Yes Soft to palpation and No Tenderness to palpation present (GI) : General: Yes no CVA tenderness Urinary Catheter: Urinary Catheter: patent and draining and urine clear Extrem: General: edema bilateral Objective Data Vital Signs Vital Signs: Vital Signs - 24 hr 03/30/21 16:00 03/30/21 18:00 03/30/21 20:00 Temperature 97.3 F L 98.9 F Pulse Rate 92 94 89 Respiratory Rate 18 22 H Blood Pressure 110/53 L 111/56 L Pulse Oximetry 97 100 03/30/21 22:00 03/31/21 00:00 03/31/21 02:00 Temperature 98.5 F Pulse Rate 90 94 89 Respiratory Rate 20 Blood Pressure 126/79 Pulse Oximetry 98 03/31/21 04:00 03/31/21 06:00 03/31/21 08:00 Temperature 98.0 F 97.4 F L Pulse Rate 99 95 102 H Respiratory Rate 20 18 Blood Pressure 124/55 L 132/66 Pulse Oximetry 98 98 03/31/21 10:00 03/31/21 12:00 Temperature 97.2 F L Pulse Rate 87 96 Respiratory Rate 20 Blood Pressure 127/56 L Pulse Oximetry 99 Intake/Output Intake/Output: Intake & Output 03/28/21 03/29/21 03/30/21 03/31/21 23:59 23:59 23:59 23:59 Intake Total 1050 3900 1730 Output Total 790 800 Balance 1050 3110 930 Meds/Results Medications: Active Medications Generic Name Dose Route Start Last Admin Trade Name Freq PRN Reason Stop Dose Admin Acetaminophen 500 mg 03/30/21 14:50 Acetaminophen 500 Mg Tablet PO BID PRN Pain Albuterol 2.5 mg 03/30/21 14:50 Albuterol Sulfate Neb 2.5 Mg/3 Ml Inh INHALATION Q6H PRN Shortness Of Breath Ascorbic Acid 500 mg 03/31/21 09:00 03/31/21 10:50 Ascorbic Acid 500 Mg Tablet PO 500 mg DAILY REGINA Administration Calcium Carbonate 500 mg 03/30/21 17:00 03/31/21 10:49 Calcium/Vitamin D 500 Mg Tablet PO 500 mg BID REGINA Administration Dextrose 12.5 gm 03/30/21 06:35 Dextrose 50% 25 Gm/50 Ml Syringe IV PUSH PRN PRN Hypoglycemia Protocol Duloxetine HCl 30 mg 03/31/21 09:00 03/31/21 10:50 Duloxetine Hcl 30 Mg C
[2021-03-31] MEDS: SILVERGEL (ELTA) 45 ML 1 APPLIC TOPICAL (18:12)
--- NOTE | 2021-03-31 19:29 | PC.NURSE ---
This patient, Dasia Hernandez, was transferred to [ 330] on 03/31/21 at 1929. Personal belongings sent with patient. Report given to [ HANY Villar @ 1930]. Appropriate documentation sent with patient.
[2021-03-31] MEDS: QUEtiapine FUMARATE 25 MG TABLET PO (20:47)
[2021-04-01] MEDS: SODIUM CHLORIDE 0.9% IV 1,000 ML 125 ML IV CONT (05:05)
[2021-04-01 05:10] VITALS: BP 129/61; PULSE 93; RESP 15; TEMP 36.2; O2SAT 99
[2021-04-01 08:31] LABS: Hematocrit 30.8 % (37.0-47.0); Hemoglobin 9.8 g/dL (12.0-15.0); Mean Corpuscular HGB Conc 31.8 g/dl (32-36); Mean Corpuscular Volume 91.1 fl (80-100); Mean Platelet Volume 8.9 fl (7.4-10.4); Platelet Count Result 321 k/mm3 (150-375); Red Blood Count 3.38 M/mm3 (4.2-5.4); Red Cell Distribution Width 16.3 % (11.5-14.5); White Blood Count 10.5 K/mm3 (4.5-10.0)
[2021-04-01 09:05] LABS: Albumin Level 3.1 g/dL (3.5-5.1); Anion Gap 8 mmol/L (8-16); Blood Urea Nitrogen 32 mg/dL (7-17); Calcium 8.4 mg/dL (8.4-10.2); Carbon Dioxide 18 mmol/L (22-30); Chloride 113 mmol/L (98-107); Estimated CRCL calculation 27 ml/min; Estimated Glomerular Filt Rate 31; Glucose 88 mg/dL (65-110); Magnesium 1.5 mg/dL (1.6-2.3); Phosphorus 3.5 mg/dL (2.5-4.5); Potassium 4.4 mmol/L (3.4-5.0); Sodium 139 mmol/L (137-145)
[2021-04-01] MEDS: DULoxetine HCL 30 MG CAPSULE.DR PO (09:21)
[2021-04-01] MEDS: HEPARIN SODIUM 5,000 UNITS/ML VIAL 5000 UNITS SUB-Q (09:21)
[2021-04-01] MEDS: SODIUM BICARBONATE TAB 650 MG TABLET PO ×2 (09:21→16:50)
[2021-04-01] MEDS: ASCORBIC ACID 500 MG TABLET PO (09:22)
[2021-04-01] MEDS: polyethylene glycoL 3350 17 GM POWD.PACK PO (09:22)
[2021-04-01] MEDS: MULTIVITAMINS THERAPEUTIC TAB (*BKC) 1 TABLET PO (09:22)
[2021-04-01] MEDS: OMEGA 3 POLYUNSAT FATTY ACIDS 1 GM CAP PO (09:22)
[2021-04-01] MEDS: FOLIC ACID 1 MG TABLET PO (09:22)
[2021-04-01] MEDS: FERROUS SULFATE 324 MG TABLET PO (09:22)
[2021-04-01] MEDS: SILVERGEL (ELTA) 45 ML 1 APPLIC TOPICAL (09:27)
--- NOTE | 2021-04-01 11:34 | WPDCDIQUERY2 ---
CDI Query Clarification Request -Severe sepsis documented in H&P and 03/30 progress note (in draft) -Severe sepsis removed from 03/31 progress note (in draft) -GCS was 13 on arrival and BP MAPS 66, 62, 56, 59, 50 before OR and MANISHA likely obstructive and sepsis related documented Please clarify if severe sepsis was ruled in or ruled out or if unable to determine. <Lisa Mariano RN - Last Filed: 04/01/21 11:42>
--- NOTE | 2021-04-01 12:39 | PM.DS ---
DS: Admitting Diagnosis Discharge Date 04/01/21 Admitting Diagnosis Weakness DS: Discharge Diagnosis Discharge Diagnosis (1) Sepsis: Code(s): A41.9 - Sepsis, unspecified organism Status: Acute Assessment and Plan: Patietn with severe sepsis with leukocytosis, borderline blood pressure source likely UTI and obstructing stone. Chest x-ray also shows left lower lobe infiltrate but CT scan showing more likely lung scarring. Lactate was normal. Started on ceftriaxone and azithromycin. COVID screen was negative. Symptoms resolved. (2) Acute renal failure: Qualifiers: Acute renal failure type: unspecified Qualified Code(s): N17.9 - Acute kidney failure, unspecified Code(s): N17.9 - Acute kidney failure, unspecified Status: Acute Assessment and Plan: Creatinine 5.1 on admission. She has normal baseline from 2 years ago. Nothing more recent. Colindres secured. [place] related to ATN and from obstructive uropathy. Renal function improving with creatinine 1.6 today. Persistent metabolic acidosis related to the renal failure so oral bicarb added with good results. Colindres removed. (3) Acute hyperkalemia: Code(s): E87.5 - Hyperkalemia Status: Acute Assessment and Plan: Potassium 6.6 on admission felt related to the acute kidney injury. Treated appropriately. Repeat potassium normal. (4) Ureterolithiasis: Code(s): N20.1 - Calculus of ureter Status: Acute Assessment and Plan: Patient with a 6 x 7.5 mm proximal left ureteral stone with moderate left hydronephrosis. Urology consulted and patient underwent stent placement 03/30. She tolerated the procedure well. KUB shows left ureteral stent in position with a large right renal pelvic stone. It was difficult to identify the left nephrolithiasis. Appreciate Urology input. Patient to follow up with urology as an outpatient. (5) Acute UTI: Code(s): N39.0 - Urinary tract infection, site not specified Status: Acute Assessment and Plan: UA noted. Urine culture growing 50-100 K E coli that was pansensitive. Blood cultures no growth to date. Treated with Rocephin. Home with oral abx. (6) Pneumonia: Qualifiers: Laterality: unspecified laterality Lung location: unspecified part of lung Pneumonia type: due to unspecified organism Qualified Code(s): J18.9 - Pneumonia, unspecified organism Code(s): J18.9 - Pneumonia, unspecified organism Status: Acute Assessment and Plan: Chest x-ray shows mild left lower lobe infiltrate and/or atelectasis. Consider pneumonia but CT of the abdomen shows scattered areas of mild discoid atelectasis or scarring in both lower lobes making pneumonia less likely. Treatment as above but felt PNA ruled out. (7) Aortic stenosis: Qualifiers: Cardiac valve disease etiology: etiology unspecified Qualified Code(s): I35.0 - Nonrheumatic aortic (valve) stenosis Code(s): I35.0 - Nonrheumatic aortic (valve) stenosis Status: Acute Assessment and Plan: Echocardiogram in September 2019 showing moderate to severe aortic stenosis with valve area of 1 cm2. No clinical indications for repeating echo at this time. Will defer to patient's primary care doctor for further evaluation and treatment (8) Fecal impaction: Code(s): K56.41 - Fecal impaction Status: Acute Assessment and Plan: Imaging shows fecal impaction. We advanced MiraLax. Soapsuds enema x2 with multiple BMs noted. (9) ANNE and COPD overlap syndrome: Code(s): G47.33 - Obstructive sleep apnea (adult) (pediatric); J44.9 - Chronic obstructive pulmonary disease, unspecified Status: Acute Assessment and Plan: Patient with sleep apnea and COPD overlap syndrome. We continued CPAP. DS: Summary Hospital Course Reason for hospitalization: 80yo female with dementia, severe and brain aneury
[2021-04-01 14:40] LABS: EDCOVIDSCREEN Negative (Negative)
--- NOTE | 2021-04-01 14:59 | PCNFU ---
Nutrition Follow-Up Complete: Increased protein needs related to wounds as evidence by unstageable sacrum, left lateral foot, left heel, and right heel pressure ulcers Goal: Pt to meet 75% of estimated nutritonal needs Pt is making little progress towards goal Pt current nutrition is Soft and bite sized, L6/low potassium diet Last recorded weight is 97.6 kg. Bowel Motility: No new BM reported Labs Reviewed: hgb 9.8, hct 30.8, alb 3.1, folate >20, Mg 1.5, GFR 31, BUN 32, Cr 1.6, Cl 113 Meds Noted: vitamin C, calcium carbonate, cymbalta, ferrous sulfate, lovaza, folic acid, heparin, multivitamins, miralax, sodium bicarbonate Skin: sacrum pressure ulcer - unstageable, left foot pressure ulcer - deep tissue, left heel pressure ulcer - unstageable, right heel pressure ulcer - unstageable, right posterior calf ulcer - venous stasis, left lower leg ulcer - venous stasis Additional Notes: Unable to visit with pt due to pt being confused. Current nutrition is soft and bite sized, L6/low potassium diet with reported intake of 10%. RDN placed orders for dietary supplement of ensure clear BID to provide an additional 240kcal and 8g of protein to increase caloric intake and aid in wound healing. Spoke to nursing via phone who confirms poor po intake and reports that [facility] Nursing agrees to continue to encourage intake of soft and bite sized, L6/low potassium diet and dietary supplements until pt is d/c. Agree with diet orders at this time. Will continue to follow. Will monitor labs, medication, wt, and reported intake every 3
[2021-04-01 16:00] VITALS: BP 149/81; PULSE 100; RESP 20; TEMP 36.1; O2SAT 97
== END 2021-04-01 23:22 | DRG 854 ==
LOC: ANHED 03-30 06:14 → ANHSURGERY 03-30 06:14 → ANHIMU 03-30 06:15 → ANH3MEDSUR 04-01 12:57 → ANHIMU 04-04 13:20
PROVIDERS: Emergency Medicine; Urology; Admitting Provider Internal Medicine; Emergency Provider Emergency Medicine; PCP Internal Medicine; Visit Provider Internal Medicine
PROC: 0T778DZ Dilation of Left Ureter with Intraluminal Device, Via Natural or Artificial Opening Endoscopic (ICD-10-PCS; CPT 52352; principal; 2021-03-30 02:45)
DX: A41.9 Sepsis, unspecified organism (principal); N13.6 Pyonephrosis; Z68.41 Body mass index [BMI] 40.0-44.9, adult; N17.9 Acute kidney failure, unspecified; R65.20 Severe sepsis without septic shock; E66.01 Morbid (severe) obesity due to excess calories; K56.41 Fecal impaction; B96.20 Unspecified Escherichia coli [E. coli] as the cause of diseases classified elsewhere; D50.9 Iron deficiency anemia, unspecified; E87.5 Hyperkalemia; E03.9 Hypothyroidism, unspecified; F03.90 Unspecified dementia, unspecified severity, without behavioral disturbance, psychotic disturbance, mood disturbance, and anxiety; G47.33 Obstructive sleep apnea (adult) (pediatric); I35.0 Nonrheumatic aortic (valve) stenosis; I50.9 Heart failure, unspecified; I11.0 Hypertensive heart disease with heart failure; J44.9 Chronic obstructive pulmonary disease, unspecified; Z90.710 Acquired absence of both cervix and uterus; Z20.822 Contact with and (suspected) exposure to COVID-19; Z87.891 Personal history of nicotine dependence; Z98.1 Arthrodesis status
CPT/HCPCS: 36415; 51703; 70450; 71045; 74018; 74176; 74420; 80048; 80053; 80069; 80076; 81001; 82607; 82746; 82948; 83605; 83735; 84100; 84132; 84443; 84484; 85025; 85027; 85610; 85730; 87040; 87077; 87086; 87186; 87426; 87502; 93005; 96361; 96365; 96366; 96367; 96372; 96375; 97161; 97165; 99285; A9270; C1769; C2617; C9803; G0378; J0456; J0610; J0696; J1644; J1815; J2370; J2704; J7030; J7120; Q9966; U0003; U0005

== ENCOUNTER 2021-08-17 20:48 | Inpatient (IN) | payer MEDICARE, SELFPAY ==
--- NOTE | ~2021-08-17 | XR_ITS ---
EXAMINATION: XR abdomen/kub 1V INDICATION: Bilateral kidney stones TECHNIQUE: Supine views of the abdomen were obtained on 2 radiographs. COMPARISON: CT, 08/18/2021 FINDINGS: A left internal ureteral stent is in expected position. No definite left urolithiasis is id entified. No stones are seen along the left internal ureteral stent. Multiple stones are again seen p rojecting in the expected location of the right renal pelvis. 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 The bowel gas pattern is normal. IMPRESSION: 1. Stones projecting in the right renal pelvis. 2. Left internal ureteral stent in expected position. Reviewed, dictated and finalized at location A.
--- NOTE | ~2021-08-17 | US_ITS ---
EXAMINATION: US abdomen limited DATE: 08/18/2021 10:41 INDICATION: Abdominal tenderness. Septic shock. TECHNIQUE: Multiple grayscale and Doppler ultrasound images of the abdomen were obtained. COMPARISON: CT abdomen and pelvis 03/29/2021 FINDINGS: The visualized portions of the head and body of the pancreas are normal. The liver demonstr ates steatosis and surface nodularity, consistent with cirrhosis. There are gallstones in the gallbla dder, which is normal in size. No gallbladder wall thickening or sonographic Tsai sign. The common duct is normal and measures 4 mm. There is normal flow in main portal vein. IMPRESSION: 1. Cholelithiasis. No evidence of acute cholecystitis. 2. Cirrhosis of the liver. Reviewed, dictated and finalized at location B.
--- NOTE | ~2021-08-17 | CT_ITS ---
EXAMINATION: CT chest abdomen pelvis wo con DATE: 08/18/2021 11:18 INDICATION: Abdominal pain. TECHNIQUE: Computed tomography (CT) of the chest, abdomen, and pelvis was performed without intraveno us contrast. Automated exposure control and iterative reconstruction technique were employed. The dos e-length product was 1735.35 mGy-cm. COMPARISON: CT abdomen and pelvis 03/29/2021 FINDINGS: CHEST CT: The lungs demonstrate mild atelectasis. There is a 7 mm nodule in the lingula. Calcified right lung n odules are consistent with old granulomatous disease. There is smooth septal thickening in the lungs consistent mild pulmonary edema. There are small pleural effusions. The heart size is normal. No juana cardial effusion. A right internal jugular central venous catheter is seen with tip at the superior c avoatrial junction. There is severe osteoarthritis of the glenohumeral joints. ABDOMEN/PELVIS CT: The liver demonstrates hypertrophy of left lateral segment. There are gallstones in the gallbladder, which is normal in size. The spleen, pancreas, and adrenal glands are normal. There are multiple ston es clustered in right kidney and right renal pelvis. The largest measures approximately 10 mm. There is a left internal ureteral stent in expected position. There are multiple stones clustered in left k idney measuring up to approximately 5 mm. The bladder is decompressed by a Colindres catheter. The rectos igmoid is distended and contains stool. There is diverticulosis of the colon without evidence of dive rticulitis. The appendix is normal. There are no pathologically enlarged lymph nodes. There is no antonio e intraperitoneal fluid. There is subcutaneous gas in anterior right thigh. There is severe osteoarth ritis of the hips. There is thoracolumbar dextroscoliosis. There is severe lumbar spondylosis. There are bridging endplate osteophytes at multiple levels in the spine, consistent with diffuse idiopathic skeletal hyperostosis (DISH). IMPRESSION: 1. Mild pulmonary edema. Small pleural effusions. 2. 7 mm pulmonary nodule, probably benign. Noncontrast low-dose chest CT is recommended in 6 months. 3. Small pleural effusions. 4. Bilateral kidney stones. Left internal ureteral stent in expected position. 5. Distended, stool-filled rectosigmoid, which may be adynamic ileus or stool impaction. 6. Subcutaneous gas in anterior right thigh. If there has been no penetrating injury (such as recent line placement), correlate clinically for necrotizing fasciitis. Reviewed, dictated and finalized at location B. IMPRESSION: 1. Mild pulmonary edema. Small pleural effusions. 2. 7 mm pulmonary nodule, probably benign. Noncontrast low-dose chest CT is rec ommended in 6 months. 3. Small pleural effusions. 4. Bilateral kidney stones. Left internal ureteral stent in expected position. 5. Distended, stool-filled rectosigmoid, which may be adynamic ileus or stool i mpaction. 6. Subcutaneous gas in anterior right thigh. If there has been no penetrating i njury (such as recent line placement), correlate clinically for necrotizing fas ciitis.
--- NOTE | ~2021-08-17 | XR_ITS ---
EXAMINATION: XR chest port-a-cath/central DATE: 08/18/2021 08:26 INDICATION: Septic shock. Line placement. TECHNIQUE: frontal view of the chest was obtained. COMPARISON: Chest radiograph dated 03/29/2021 FINDINGS: Right internal jugular central venous catheter with distal tip near the superior cavoatrial junction. Small calcified nodule at the left midlung zone. Mild streaky bibasilar atelectasis. No pulmonary ed frantz, pleural effusion or pneumothorax. The cardiomediastinal silhouette is normal. The proximal loop of a likely left internal ureteral stent projects over the left upper quadrant. Advanced right glenoh umeral osteoarthritis. Advanced bilateral glenohumeral osteoarthritis. Mild thoracic dextrocurvature with bridging osteophytes at multiple levels consistent with diffuse idiopathic skeletal hyperostosis (DISH). IMPRESSION: 1. Mild streaky bibasilar atelectasis. No other acute cardiopulmonary disease. 2. Right internal jugular central venous catheter with distal tip near the superior cavoatrial juncti on. Reviewed, dictated and finalized at location A. IMPRESSION: 1. Mild streaky bibasilar atelectasis. No other acute cardiopulmonary disease. 2. Right internal jugular central venous catheter with distal tip near the supe rior cavoatrial junction.
--- NOTE | ~2021-08-17 | US_ITS ---
US renal BI 08/18/2021 10:40 Procedure: Realtime transabdominal ultrasound of the kidneys and bladder. Indication: Acute renal insufficiency. Evaluate for hydronephrosis. Comparison: No prior studies for comparison. Findings: Study limited by patient body habitus. Renal echotexture is normal bilaterally without hydr onephrosis, contour deforming mass or renal calculus. The right kidney measures 12.5 cm and left kidn ey measures 11.4 cm. Bladder within normal limits. Impression: 1: Unremarkable renal ultrasound. No stones, masses or hydronephrosis. Reviewed, dictated and finalized at location A. Impression: 1: Unremarkable renal ultrasound. No stones, masses or hydronephrosis.
[2021-08-17 20:51] VITALS: BP 99/64; PULSE 123; RESP 20; TEMP 36.8; O2SAT 97
[2021-08-17 20:58] VITALS: O2SAT 98
[2021-08-17] MEDS: SODIUM CHLORIDE 0.9% IV 1,000 ML 999 ML IV CONT (21:01)
[2021-08-17] MEDS: ONDANSETRON INJ 4 MG/2 ML VIAL IV PUSH (21:02)
[2021-08-17] MEDS: PANTOPRAZOLE SODIUM IV 40 MG VIAL IV PUSH (21:02)
[2021-08-17 21:12] LABS: Hematocrit 38.4 % (37.0-47.0); Hemoglobin 12.2 g/dL (12.0-15.0); Mean Corpuscular HGB Conc 31.8 g/dl (32-36); Mean Corpuscular Hemoglobin 28.6 pg (26-34); Mean Corpuscular Volume 90.1 fl (80-100); Mean Platelet Volume 8.7 fl (7.4-10.4); Platelet Count Result 423 k/mm3 (150-375); Red Blood Count 4.26 M/mm3 (4.2-5.4); Red Cell Distribution Width 15.7 % (11.5-14.5)
[2021-08-17 21:23] LABS: White Blood Count 53.2 K/mm3 (4.5-10.0)
[2021-08-17 21:24] LABS: Band Neutrophils Percent 10 % (0-6); Lymphocytes Absolute Manual 1.59 K/mm3 (1.1-4.5); Lymphocytes Percent Manual 3 % (18-44); Monocytes Absolute Manual 1.06 K/mm3 (0.1-0.90); Monocytes Percent Manual 2 % (3-9); Neutrophils Absolute Manual 50.54 K/mm3 (1.7-7.2); Neutrophils Percent Manual 85 % (46-73); Platelet Estimate Increased (Adequate); Total Cells Counted 100
[2021-08-17 21:28] LABS: Alkaline Phosphatase 105 U/L (38-126); Anion Gap 12 mmol/L (8-16); Aspartate Amino Transferase 43 U/L (14-36); Blood Urea Nitrogen 52 mg/dL (7-17); Calcium 9.1 mg/dL (8.4-10.2); Carbon Dioxide 19 mmol/L (22-30); Chloride 104 mmol/L (98-107); Estimated CRCL calculation 16 ml/min; Estimated Glomerular Filt Rate 13; Glucose 175 mg/dL (65-110); Potassium 4.6 mmol/L (3.4-5.0); Sodium 135 mmol/L (137-145)
[2021-08-17 21:32] VITALS: BP 105/53; PULSE 120; RESP 22; O2SAT 95
[2021-08-17 21:34] LABS: Alanine Aminotransferase 35 U/L (6-35)
[2021-08-17 21:56] VITALS: BP 98/47; PULSE 115; RESP 24; O2SAT 97
[2021-08-17 22:27] VITALS: BP 116/80; PULSE 135; RESP 24; O2SAT 97
[2021-08-17 22:36] LABS: Appearance Urine Slightly Cloudy (Clear); Bilirubin Urine 1+ (Negative); Blood Urine 3+ (Negative); Color Urine Other (Yellow); Glucose Urine UA Negative (Negative); Ketones Urine Negative (Negative); Leukocyte Esterase Ur 3+ LEU/UL (Negative); Nitrate Urine Negative (Negative); Protein Urine 3+ mg/dL (Negative); Urobilinogen Urine 0.2 mg/dL (<2.0)
[2021-08-17 22:48] LABS: Squamous Epithelial Cell Urine Many /hpf (Few); WBC Clumps Urine Present /HPF; WBC Urine >75 /hpf
[2021-08-17] MEDS: SODIUM CHLORIDE 0.9% IV 1,000 ML 999 ML (22:48)
[2021-08-17 22:51] LABS: Add Urine Microscopic? YES
[2021-08-17 22:53] VITALS: BP 82/54; PULSE 125; RESP 24; O2SAT 96
[2021-08-18] VITALS (51 sets, daily range): BP systolic 52–142; BP diastolic 36–87; PULSE 96–130; RESP 16–33; TEMP 37–38.3; O2SAT 94–100; BMI 37.3; BMI 37.2
[2021-08-18] MEDS: LIDOCAINE HCL 2% LOCAL INJ 20 ML VIAL (00:07)
--- NOTE | 2021-08-18 00:42 | PC.NURSE ---
[facility] ER[facility] DR ARNOLD - 1LNS BOLUS
[2021-08-18] MEDS: SODIUM CHLORIDE 0.9% IV 1,000 ML 999 ML IV CONT (00:47)
--- NOTE | 2021-08-18 00:49 | PM.IMHP ---
H&P: HPI History of Present Illness Date/Time: 08/18/21 00:49 Chief Complaint: Vomiting Narrative: This is an 80-year-old female alf resident with past medical history significant for congestive heart failure, schizoaffective disorder, iron deficiency anemia, degenerative joint disease. Patient is brought to the emergency room for evaluation after she had 3 vomits at suppertime patient is unable to give any history she is moaning and groaning at the time of my visit and is complaining of pain in her pelvic area she is status post Colindres placement. Id preliminary workup was significant for urinalysis of numerous WBCs present. CBC count to of 30,000. Creatinine of 3.4 BUN of 50. Patient has been admitted for further evaluation ,management and treatment. Review of Systems Review of Systems: ROS unobtainable: Yes unobtainable due to mental status (Delirious) [facility] Past Medical History Medical History Aortic stenosis Reportedly she has severe aortic stenosis and is followed by a piping designer in [place]. Apparently she has been deemed not a surgical candidate at this time due to her other medical conditions. Brain aneurysm Chronic obstructive pulmonary disease Congestive heart failure Depression with anxiety Hypertension Hypothyroidism Iron deficiency anemia Morbid obesity ANNE and COPD overlap syndrome Surgical History Surgical History History of craniotomy Either for an aneurysm or AVM, was difficult to understand what she was saying. History of hysterectomy Family History Family History Father Acute myocardial infarction Social History Social History Social History: The patient lives at [facility] in [place]. 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 She used to ?smoke a lot? and quit several years ago. She denies alcohol and illicit substance use. Her son, Bal Hernandez, is her surrogate decision maker. She wishes to be a full code. Smoking packs per day: 1 Smoking cigarettes per day: 20.0 Years smoked: 10 Smoking pack-years: 10.00 Smoking status: Former smoker Substance use type: unknown Gender identity (if verbalized by the patient): Female Sexual Orientation (if Verbalized by the Patient): Straight or Heterosexual Spiritual care concerns: No Meds Home Medications and Allergies Home Medications Medication Instructions Recorded Confirmed Type calcium carbonate 600 mg-vitamin 1 tablet PO BID 09/02/19 08/18/21 History D3 20 mcg (800 unit) chewable tablet (Caltrate 600 plus D) duloxetine 30 mg capsule,delayed 60 mg PO DAILY 09/02/19 08/18/21 History release glucosamine-chondroitin 250 mg-200 1 tablet PO DAILY 09/02/19 08/18/21 History mg tablet (Osteo Bi-Flex) multivit with minerals-iron 18 1 tablet PO DAILY ##0 09/02/19 08/18/21 History mg-folic ac 400 mcg-vit K 25 mcg tablet (Adults Multivitamin) carvedilol 6.25 mg tablet (Coreg) 6.25 mg PO Q12HR 30 days #60 tabs 09/09/19 08/18/21 Rx acetaminophen 500 mg tablet 500 mg PO BID PRN Pain 03/30/21 08/18/21 History ascorbic acid (vitamin C) 500 mg 500 mg PO DAILY 03/30/21 08/18/21 History tablet ferrous sulfate 325 mg (65 mg 325 mg PO DAILY 03/30/21 08/18/21 History iron) tablet folic acid 1 mg tablet 1 mg PO DAILY 03/30/21 08/18/21 History hydroxyzine HCl 50 mg tablet 50 mg PO HS 03/30/21 08/18/21 History omega 9-tmv-xuk-fish oil 300 1 cap PO DAILY 03/30/21 08/18/21 History mg-1,000 mg capsule,delayed release (Fish Oil) quetiapine 25 mg tablet 25 mg PO HS 03/30/21 08/18/21 History polyethylene glycol 3350 17 17 g PO BID #0 grams 04/01/21 08/18/21 Rx gram/dose oral powder (Miralax) tramadol 50 mg tablet 50 mg PO Q12H PRN Breakthrough Pain 08/18/21 08/18/21 History Max
--- NOTE | 2021-08-18 02:11 | ED.GENADULT ---
HPI - General Adult General Chief complaint: Nausea/Vomiting/Diarrhea Stated complaint: coffee ground emesis Time Seen by Provider: 08/17/21 20:52 History of Present Illness HPI narrative: 80-year-old with a history of hyperlipidemia, major depressive disorder, obstructive sleep apnea, schizoaffective disorder, hypertension was sent from a custodial with complaints of vomiting x3 since this evening. EMS reports it was coffee-ground emesis. Patient presently denies having any abdominal pain or chest pain or shortness of breath. Related Data Home Medications Medication Instructions Recorded Confirmed Multi-Tong 1 tablet PO DAILY 09/02/19 03/30/21 albuterol sulfate 2.5 mg/3 mL 2.5 mg inhalation Q6H 09/02/19 03/30/21 (0.083 %) solution for nebulization calcium carbonate 600 mg-vitamin 1 tablet PO BID 09/02/19 03/30/21 D3 20 mcg (800 unit) chewable tablet (Caltrate 600 plus D) duloxetine 30 mg capsule,delayed 30 mg PO DAILY 09/02/19 03/30/21 release enalapril maleate 2.5 mg tablet 2.5 mg PO DAILY 09/02/19 03/30/21 glucosamine-chondroitin 250 mg-200 1 tablet PO DAILY 09/02/19 03/30/21 mg tablet (Osteo Bi-Flex) acetaminophen 500 mg tablet 500 mg PO BID PRN Pain 03/30/21 03/30/21 ascorbic acid (vitamin C) 500 mg 500 mg PO DAILY 03/30/21 03/30/21 tablet ferrous sulfate 325 mg (65 mg 325 mg PO DAILY 03/30/21 03/30/21 iron) tablet folic acid 1 mg tablet 1 mg PO DAILY 03/30/21 03/30/21 hydroxyzine HCl 50 mg tablet 50 mg PO HS 03/30/21 03/30/21 omega 2-dfv-eqt-fish oil 300 1 cap PO DAILY 03/30/21 03/30/21 mg-1,000 mg capsule,delayed release (Fish Oil) quetiapine 25 mg tablet 25 mg PO HS 03/30/21 03/30/21 Allergies Allergy/AdvReac Type Severity Reaction Status Date / Time pregabalin [From Lyrica] Allergy Unknown Verified 09/02/19 11:45 Sulfa (Sulfonamide Allergy Unknown Verified 09/02/19 11:45 Antibiotics) phenytoin [From Dilantin] AdvReac Unknown Verified 09/02/19 11:45 Review of Systems Review of Systems: All systems reviewed & are unremarkable except as noted in HPI and below Constitutional: Constitutional: Reports no additional constitutional complaints Eyes: Eyes: Reports no additional eye complaints ENT: Reports system reviewed and no additional complaints, except as documented Cardiovascular: Cardiovascular: Reports no additional cardiovascular complaints Respiratory: Respiratory: Reports no additional respiratory complaints Gastrointestinal: Gastrointestinal: Reports as per HPI Musculoskeletal: Musculoskeletal: Reports no additional musculoskeletal complaints Neurologic: Reports system reviewed and no additional complaints, except as documented [facility] Past Medical History Medical History Aortic stenosis Reportedly she has severe aortic stenosis and is followed by a night order selector in [place]. Apparently she has been deemed not a surgical candidate at this time due to her other medical conditions. Brain aneurysm Chronic obstructive pulmonary disease Congestive heart failure Depression with anxiety Hypertension Hypothyroidism Iron deficiency anemia Morbid obesity ANNE and COPD overlap syndrome Surgical History Surgical History History of craniotomy Either for an aneurysm or AVM, was difficult to understand what she was saying. History of hysterectomy Family History Family History Father Acute myocardial infarction Social History Social History Social History: The patient lives at [facility] in [place]. 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 She used to ?smoke a lot? and quit several years ago. She denies alcohol and illicit substance use. Her son, Bal Hernandez, is her surrogate decision maker. She wishes to be a full code. Smoking packs per day: 1
--- NOTE | 2021-08-18 02:35 | ADMGEN ---
This patient, Dasia Hernandez, was admitted to Intensive Care Unit-7. Patient/family oriented to hospital policies and general routines including ID bracelet, bed and alarms, visiting hours, pain management, procedures, bathroom and other care routines, personal items, smoking policy, room service/diet, and visiting hours. Information on how to activate the Rapid Response Team has been discussed. Patient/Family are encouraged to report perceived risks to care and to ask questions if they do not understand what they are told or what they should do.
[2021-08-18] MEDS: SODIUM CHLORIDE 0.9% IV 1,000 ML 125 ML IV CONT (03:03)
[2021-08-18 04:29] LABS: Hematocrit 30.5 % (37.0-47.0); Hemoglobin 9.5 g/dL (12.0-15.0); Mean Corpuscular HGB Conc 31.1 g/dl (32-36); Mean Corpuscular Hemoglobin 28.9 pg (26-34); Mean Corpuscular Volume 92.7 fl (80-100); Mean Platelet Volume 8.9 fl (7.4-10.4); Platelet Count Result 316 k/mm3 (150-375); Red Blood Count 3.29 M/mm3 (4.2-5.4); Red Cell Distribution Width 15.9 % (11.5-14.5); White Blood Count 33.7 K/mm3 (4.5-10.0)
[2021-08-18 04:42] LABS: Alanine Aminotransferase 22 U/L (6-35); Albumin Level 3.1 g/dL (3.5-5.1); Alkaline Phosphatase 80 U/L (38-126); Anion Gap 11 mmol/L (8-16); Aspartate Amino Transferase 27 U/L (14-36); Bilirubin,Total 0.6 mg/dL (0.2-1.3); Blood Urea Nitrogen 51 mg/dL (7-17); Calcium 7.8 mg/dL (8.4-10.2); Carbon Dioxide 17 mmol/L (22-30); Chloride 110 mmol/L (98-107); Estimated CRCL calculation 13 ml/min; Estimated Glomerular Filt Rate 13; Glucose 132 mg/dL (65-110); Magnesium 1.6 mg/dL (1.6-2.3); Phosphorus 3.8 mg/dL (2.5-4.5); Potassium 4.1 mmol/L (3.4-5.0); Sodium 138 mmol/L (137-145)
[2021-08-18 04:43] LABS: Lactic Acid Reflex 2.4 mmol/L (0.7-2.0)
[2021-08-18 04:54] LABS: Band Neutrophils Percent 13 % (0-6); Lymphocytes Absolute Manual 2.02 K/mm3 (1.1-4.5); Monocytes Absolute Manual 1.01 K/mm3 (0.1-0.90); Monocytes Percent Manual 3 % (3-9); Neutrophils Absolute Manual 30.66 K/mm3 (1.7-7.2); Neutrophils Percent Manual 78 % (46-73); Platelet Estimate Adequate (Adequate); Total Cells Counted 100
[2021-08-18 06:33] LABS: INR 1.6; Partial Thromboplastin Time 33.2 SECONDS (22.3-36.8); Prothrombin Time 18.2 Seconds (11.1-14.7)
[2021-08-18 07:26] LABS: Reflex Lactic Acid Yes or No Add Lactic
[2021-08-18 08:10] LABS: Lactic Acid 4.7 mmol/L (0.7-2.0)
[2021-08-18] MEDS: IPRATROPIUM BR 0.02% INH SOLN 0.5 MG/2.5 ML VIAL (08:27)
[2021-08-18] MEDS: hetaSTARCH 6%/NACL 500 ML 250 ML IV CONT (08:39)
[2021-08-18] MEDS: FERROUS SULFATE 324 MG TABLET PO (08:40)
[2021-08-18] MEDS: PANTOPRAZOLE SODIUM IV 40 MG VIAL IV PUSH ×2 (08:40→20:38)
[2021-08-18] MEDS: DULoxetine HCL 60 MG CAPSULE.DR PO (08:40)
[2021-08-18 08:49] LABS: Creatine Kinase 22 U/L (30-135)
--- NOTE | 2021-08-18 09:14 | WPDCNINT ---
Assessment and Plan Assessment and plan (1) Septic shock: Code(s): A41.9 - Sepsis, unspecified organism; R65.21 - Severe sepsis with septic shock Status: Acute Assessment and Plan: Patient presented with nausea, vomiting with coffee-ground emesis, hypotension. Was septic shock in the ER, likely secondary UTI -patient received IV fluids in the ER -will give additional IV fluids in the ICU here as patient seems to be hypovolemic -lactic acid has increased, will continue to trend -right IJ central line was inserted emergently this morning as her systolic blood pressures were in the 50s and 60s and she was on Bertram-Synephrine via peripheral access -will continue Bertram-Synephrine and maintain MAP > 70 mmHg for adequate end organ perfusion -patient also has acute kidney injury -blood and urine cultures have been obtained and pending -continue Zosyn -will add vancomycin for empiric treatment, will deescalated if blood cultures are negative (2) Acute UTI: Code(s): N39.0 - Urinary tract infection, site not specified Status: Acute Assessment and Plan: Urine analysis reflective of UTI -urine cultures have been obtained pending -continue Zosyn -patient had a UTI with E coli which was pansensitive in March 2021 (3) Acute upper gastrointestinal hemorrhage: Code(s): K92.2 - Gastrointestinal hemorrhage, unspecified Status: Acute Assessment and Plan: Coffee-ground emesis noted at the [facility], no episodes in the ICU overnight or this morning -GI has been consulted -Protonix IV q.12 hours (4) Acute renal failure: Qualifiers: Acute renal failure type: unspecified Qualified Code(s): N17.9 - Acute kidney failure, unspecified Code(s): N17.9 - Acute kidney failure, unspecified Status: Acute Assessment and Plan: Acute renal failure likely related to hypovolemia, septic shock, UTI, ATN -patient has received IV fluids in the ER, will give additional IV fluids in the ICU she still seems to be hypovolemic -continue maintenance IV fluids -obtain renal ultrasound and urine lytes -nephrology has been consulted -continue to monitor renal function urine output and electrolytes (5) ANNE and COPD overlap syndrome: Code(s): G47.33 - Obstructive sleep apnea (adult) (pediatric); J44.9 - Chronic obstructive pulmonary disease, unspecified Status: Acute Assessment and Plan: Start bronchodilators as patient is wheezing Plan Trend lactic acid RUQ ultrasound, Renal ultrasound Urine lytes And vancomycin Additional Plan Discussed with patient updated with her condition and plan of care. Code status: Full DNR Critical care time spent: 46 minute This dictation may have been done utilizing a voice recognition system. Attempts have been made to correct errors. However, there may be uncorrected grammatical, spelling, and recognition errors present. Due to a high probability of clinically significant, life threatening deterioration, the patient required my highest level of preparedness to intervene emergently and I personally spent this critical care time directly and personally managing the patient. This critical care time included obtaining a history; examining the patient; pulse oximetry; ordering and review of studies; arranging urgent treatment with development of a management plan; evaluation of patient's response to treatment; frequent reassessment; and discussions with other providers. It was exclusive of separately billable procedures and treating other patients and teaching time. Please see Assessment and Plan section and the rest of the note for further information on patient assessment and treatment Emr Implementation Specialist Consult Note Consult date: 08/18/21 Reason for consult: Septic shock, UTI, lactic acidosis, leukocytosis, nausea, vomiting, coffee-ground emesis HPI: Dasia Hernandez is a 80 year old female with significant past medical history of severe aortic st
--- NOTE | 2021-08-18 09:32 | PM.CNNEP ---
Assessment and Plan Additional Plan 1. Dasia has acute kidney injury. the patient had a creatinine of 1.6 on discharge in March. She may or may not have underlying chronic kidney disease. Currently the patient has a urinalysis positive for protein blood and white cells. Ultrasound was just done and films are not available yet. Urine electrolytes are pending. The patient has hypotension and sepsis. These to are certainly playing a role in her renal failure. Obstruction is also a possibility of course because she had the same thing in March. Some abdominal process could be happening as well. She does have some abdominal discomfort. Discussed with Dr. chet carranza. She is going to get a CT scan of the abdomen and pelvis once she is stable enough to go. I doubt if it AIN or GN are playing a role. Rhabdomyolysis is always a possibility so he will check a CK. At this point her blood pressure is maintained with very large amounts of norepinephrine and she is getting volume as well. She is getting broad-spectrum antibiotics. Cultures are pending. 2. The patient has history of kidney stones. Ultrasound is pending. 3. The patient has hypertension. Her blood pressure meds are on hold because of her hypotension. Will check a cortisol level. 4. The patient has a history of severe aortic stenosis. This is inoperable. She is amazingly well, compensated considering Her current situation. 5. The patient has COPD and sleep apnea. She is getting supportive care. 6. Her bicarbonate level is low. Her anion gap is 11. I believe her baseline anion gap is around 8. Her lactate around 3 makes up for this delta anion gap. She also has a partial non anion gap metabolic acidosis as a delta bicarb is higher than the delta anion gap. Her bicarbonate level was still low even at discharge last time . We do not know she has a chronic metabolic acidosis. 7. Schizoaffective disorder. Getting supportive care. 8. The patient is anemic. Her hemoglobin was 12.2 last night, possibly from contraction. As she gets fluid the hemoglobin is dropping. Will follow this along and EPO if needed. History of Present Illness Reason for Consult Consult date: 08/18/21 Chief Complaint Chief complaint: Leukemoid reaction, UTI, upper GI, alicja History of Present Illness Narrative: Dasia is a very pleasant 80-year-old lady who has multiple medical problems including severe aortic stenosis ( not an operable candidate), congestive heart failure, hypertension, COPD, sleep apnea, history of brain aneurysm, hypothyroidism, anemia, schizoaffective disorder, DJD. The patient came into the emergency room because she had a days worth of nausea vomiting abdominal discomfort. There was coffee-ground emesis. She was seen in the ER and she was hypotensive. She was given IV fluids and sent to the ICU. She was given pressors and also hetastarch for the hypotension. Her blood pressure is doing pretty well now but she is on 140 mics of norepi. The patient's creatinine was elevated so renal consultation was requested. She was in the hospital in March. She had a similar presentation with abdominal discomfort, UTI, and sepsis. Imaging revealed an obstructed stone. Urology saw the patient and placed a stent and she improved between that and the antibiotics. Her creatinine was 5.1 on admission and then improved gradually to 1.6 by discharge. It is not known if her baseline creatinine is any better than that. She says that she does not see a kidney doctor as an outpatient. Currently the patient says that she has some abdominal pain still in the upper abdomen. She still has a little nausea. She is cold ( she is starting to run a fever). she has no itching or skin rash. She has not had blood in her urine at home that she knows of. Review of systems was somewhat spotty because of her mental status, mostly yes no questions. Review of Systems Co
[2021-08-18] MEDS: SODIUM CHLORIDE 0.9% IV 1,000 ML 100 ML IV CONT ×2 (09:42→21:30)
[2021-08-18] MEDS: SODIUM CHLORIDE 0.9% IV 500 ML IV CONT (09:42)
--- NOTE | 2021-08-18 09:45 | P.PCNBED_ITS ---
Procedures Central Line Placement Right IJ: Central Line Date: 08/18/21 Central Line Time: 07:30 Consent: I have discussed with the patient and/or surrogate, the non-emergent placement of a central venous catheter, including its clinical necessity/indication and associated potential risks and complications. The patient and/or surrogate understand(s) and acknowledge(s) the need to proceed with central venous catheter insertion as an important element of the patient's clinical management. Time Out Performed: Yes Patient Position: supine Patient placed on monitor/pulse ox: Yes Provider Prep: mask, sterile gown, sterile gloves, Max. sterile barrier precautions, cap and hand hygiene with conventional soap/water or alcohol based hand rub Central line prep: 2% Chlorhexidine scrub and sterile full body sheet applied Local anesthesia used: lidocaine 1% Amount of anesthesia used (ml): 3 Sterile US Technique with sterile gel/sterile probe covers: Yes Central line lumen inserted: triple Marshallese: 12 Length (cm): 16 Depth of Insertion (cm): 16 Post Procedure: sutured in place, good blood return, all ports aspirated, flushed, capped, transparent dressing, hemostatic product, antimicrobial product, securement product and aseptic technique maintained throughout procedure Post procedure x-ray: tip of catheter in good position and no pneumothorax seen Patient tolerated procedure: well Complications: none
[2021-08-18 10:07] LABS: Creatinine Urine 75.9 mg/dL
[2021-08-18 10:12] LABS: Potassium Urine Random 28.4 meq/L; Sodium Urine Random 79 meq/L
[2021-08-18] MEDS: ACETAMINOPHEN 500 MG TABLET PO (10:51)
[2021-08-18 11:20] LABS: Eosinophil Urine None Seen % (None Seen)
[2021-08-18 11:59] LABS: Creatine Kinase 29 U/L (30-135)
[2021-08-18] MEDS: LEVALBUTEROL NEB 1.25 MG/3 ML 0.63 MG INHALATION ×2 (13:35→21:00)
[2021-08-18] MEDS: IPRATROPIUM BR 0.02% INH SOLN 0.5 MG/2.5 ML VIAL INHALATION ×2 (13:35→20:59)
[2021-08-18 15:25] LABS: Lactic Acid Reflex 1.4 mmol/L (0.7-2.0)
--- NOTE | 2021-08-18 16:11 | PM.IMPN ---
Progress Note: A&P Assessment and Plan (1) Septic shock: Code(s): A41.9 - Sepsis, unspecified organism; R65.21 - Severe sepsis with septic shock Status: Acute Assessment and Plan: Patient presented with nausea, vomiting with coffee-ground emesis, hypotension. Was septic shock in the ER, likely secondary UTI -patient received IV fluids in the ER -will give additional IV fluids in the ICU here as patient seems to be hypovolemic -lactic acid has increased, will continue to trend -right IJ central line was inserted emergently this morning as her systolic blood pressures were in the 50s and 60s and she was on Bertram-Synephrine via peripheral access -will continue Bertram-Synephrine and maintain MAP > 70 mmHg for adequate end organ perfusion -patient also has acute kidney injury -blood and urine cultures have been obtained and pending -continue Zosyn -will add vancomycin for empiric treatment, will deescalated if blood cultures are negative. 08/18/2021 interval history: patient with septic shock suspect secondary to UTI urine and blood cultures are pending is being treated Zosyn and vancomycin, patient is hypotensive on pressors and being hydrated patient seen by intensive and nephrology, remains clinically stable will continue to monitor and further recommendation to follow. (2) Acute UTI: Code(s): N39.0 - Urinary tract infection, site not specified Status: Acute Assessment and Plan: Urine analysis reflective of UTI -urine cultures have been obtained pending -continue Zosyn -patient had a UTI with E coli which was pansensitive in March 2021 (3) Acute upper gastrointestinal hemorrhage: Code(s): K92.2 - Gastrointestinal hemorrhage, unspecified Status: Acute Assessment and Plan: [facility], no episodes in the ICU overnight or this morning -GI has been consulted -Protonix IV q.12 hours (4) Acute renal failure: Qualifiers: Acute renal failure type: unspecified Qualified Code(s): N17.9 - Acute kidney failure, unspecified Code(s): N17.9 - Acute kidney failure, unspecified Status: Acute Assessment and Plan: Acute renal failure likely related to hypovolemia, septic shock, UTI, ATN -patient has received IV fluids in the ER, will give additional IV fluids in the ICU she still seems to be hypovolemic -continue maintenance IV fluids -obtain renal ultrasound and urine lytes -nephrology has been consulted -continue to monitor renal function urine output and electrolytes (5) ANNE and COPD overlap syndrome: Code(s): G47.33 - Obstructive sleep apnea (adult) (pediatric); J44.9 - Chronic obstructive pulmonary disease, unspecified Status: Acute Assessment and Plan: Start bronchodilators as patient is wheezing Plan Trend lactic acid RUQ ultrasound, Renal ultrasound Urine lytes And vancomycin Subjective Date/time seen: 08/18/21 16:11 Vomiting Narrative: This is an 80[facility]-old female [facility] with past medical history significant for congestive heart failure, schizoaffective disorder, iron deficiency anemia, degenerative joint disease.? Patient is brought to the emergency room for evaluation after she had 3 vomits at suppertime patient is unable to give any history she is moaning and groaning at the time of my visit and is complaining of pain in her pelvic area she is status post Colindres placement.? Id preliminary workup was significant for urinalysis of numerous WBCs present.? CBC count to of 30,000. Creatinine of 3.4 BUN of 50.? Patient has been admitted for further evaluation ,management and treatment. 08/18/2021 interval history: patient with septic shock suspect secondary to UTI urine and blood cultures are pending is being treated Zosyn and vancomycin, patient is hypotensive on pressors and being hydrated patient seen by intensive and nephrology, remains clinically stable will continue to monitor and fu
[2021-08-18] MEDS: TOLNAFTATE 1% POWDER 45 GM BTL 1 APPLIC TOPICAL (20:38)
[2021-08-18] MEDS: CENTRAL LINE FLUSH 10 ML IV PUSH (20:39)
[2021-08-19] VITALS (24 sets, daily range): BP systolic 82–126; BP diastolic 49–95; PULSE 100–121; RESP 14–25; TEMP 36.6–37.4; O2SAT 95–100
[2021-08-19] MEDS: IPRATROPIUM BR 0.02% INH SOLN 0.5 MG/2.5 ML VIAL INHALATION ×4 (02:30→19:46)
[2021-08-19] MEDS: LEVALBUTEROL NEB 1.25 MG/3 ML 0.63 MG INHALATION ×4 (02:30→19:46)
[2021-08-19] MEDS: traMADol HCL (*CRX) 50 MG TABLET PO (04:24)
[2021-08-19] MEDS: CENTRAL LINE FLUSH 10 ML IV PUSH ×4 (05:23→20:15)
[2021-08-19 05:52] LABS: Hematocrit 28.1 % (37.0-47.0); Mean Corpuscular Hemoglobin 28.7 pg (26-34); Mean Corpuscular Volume 89.5 fl (80-100); Mean Platelet Volume 8.9 fl (7.4-10.4); Platelet Count Result 245 k/mm3 (150-375); Red Blood Count 3.14 M/mm3 (4.2-5.4); White Blood Count 23.6 K/mm3 (4.5-10.0)
[2021-08-19 06:11] LABS: Alanine Aminotransferase 15 U/L (6-35); Albumin Level 2.7 g/dL (3.5-5.1); Alkaline Phosphatase 83 U/L (38-126); Anion Gap 10 mmol/L (8-16); Aspartate Amino Transferase 20 U/L (14-36); Bilirubin,Total 0.6 mg/dL (0.2-1.3); Blood Urea Nitrogen 53 mg/dL (7-17); Calcium 7.2 mg/dL (8.4-10.2); Carbon Dioxide 16 mmol/L (22-30); Chloride 111 mmol/L (98-107); Estimated CRCL calculation 12 ml/min; Estimated Glomerular Filt Rate 12; Glucose 99 mg/dL (65-110); Magnesium 1.5 mg/dL (1.6-2.3); Phosphorus 4.1 mg/dL (2.5-4.5); Potassium 3.8 mmol/L (3.4-5.0); Sodium 137 mmol/L (137-145)
[2021-08-19 06:43] LABS: Lactic Acid Reflex 1.5 mmol/L (0.7-2.0)
[2021-08-19] MEDS: SODIUM CHLORIDE 0.9% IV 1,000 ML 100 ML IV CONT ×2 (08:20→17:34)
[2021-08-19] MEDS: MAGNESIUM SULF 2 GM/WATER 50ML 2 GM/50 ML BAG IVPB (09:36)
[2021-08-19] MEDS: PANTOPRAZOLE SODIUM IV 40 MG VIAL IV PUSH ×2 (09:40→20:15)
[2021-08-19] MEDS: DULoxetine HCL 60 MG CAPSULE.DR PO (09:40)
[2021-08-19] MEDS: TOLNAFTATE 1% POWDER 45 GM BTL 1 APPLIC TOPICAL ×2 (09:40→20:15)
[2021-08-19 09:46] LABS: Band Neutrophils Percent 1 % (0-6); Eosinophils Absolute Manual 0.23 K/mm3 (0.02-0.5); Eosinophils Percent Manual 1 % (0-4); Monocytes Absolute Manual 0.47 K/mm3 (0.1-0.90); Monocytes Percent Manual 2 % (3-9); Neutrophils Absolute Manual 22.18 K/mm3 (1.7-7.2); Neutrophils Percent Manual 93 % (46-73); Platelet Estimate Adequate (Adequate); Total Cells Counted 100
--- NOTE | 2021-08-19 11:27 | PM.PNNEP ---
Progress Note: A&P Additional Plan 1. Dasia has acute kidney injury. the patient had a creatinine of 1.6 on discharge in March. She may or may not have underlying chronic kidney disease. urine electrolytes are non pre renal urinalysis shows signs of infection CK is normal renal ultrasound is unremarkable CT abdomen noted The patient has hypotension and sepsis. her blood pressure is better. Her requirement for Bertram-Synephrine is reduced dramatically. She is making more urine. most likely this is ATN from infection and hypotension. her creatinine is slightly higher but in the same ballpark as admission. Hopefully this will improve soon Continue supportive care. 2. The patient has history of kidney stones. There are stones there. No obstruction seen. 3. The patient has hypertension. Her blood pressure meds are on hold because of her hypotension. cortisol level is fine 4. The patient has a history of severe aortic stenosis. This is inoperable. She is amazingly well, compensated considering Her current situation. 5. The patient has COPD and sleep apnea. She is getting supportive care. 6. Her bicarbonate level is low, however it is about the same. Anion gap is stable. 7. Schizoaffective disorder. Getting supportive care. 8. The patient is anemic. Her hemoglobin is around 9. Follow this along. No need for EPO yet. Subjective Date/time seen: 08/19/21 11:27 Interval history: care looks a little better today. She is more interactive. She denies any shortness of breath or chest pain. Review of Systems Cardiovascular: Cardiovascular: Reports no additional cardiovascular complaints Respiratory: Respiratory: Reports no additional respiratory complaints Gastrointestinal: Gastrointestinal: Reports no additional gastrointestinal complaints Genitourinary: Genitourinary: Reports no additional female genitourinary complaints Exam Narrative: WDWN in NAD skin no rash or subcu nodules head ncat lungs clear cor reg no rub or gallop abd BS+ nontender and soft ext trace edema. Objective Data Vital Signs Vital Signs: Vital Signs - 24 hr 08/18/21 11:33 08/18/21 12:00 08/18/21 12:00 Temperature 38.1 C H Pulse Rate 118 H Respiratory Rate 27 H 27 H Blood Pressure 117/71 106/61 Pulse Oximetry 100 100 Oxygen Delivery Room Air 08/18/21 12:00 08/18/21 12:00 08/18/21 12:15 Temperature 38.1 C H Pulse Rate 118 H Respiratory Rate Blood Pressure 100/54 L Pulse Oximetry Oxygen Delivery 08/18/21 13:49 08/18/21 13:51 08/18/21 13:35 Temperature 37.4 C Pulse Rate 115 H 116 H Respiratory Rate 23 H Blood Pressure 100/65 Pulse Oximetry Oxygen Delivery 08/18/21 13:45 08/18/21 14:00 08/18/21 14:00 Temperature Pulse Rate 115 H 114 H 114 H Respiratory Rate 21 H 23 H Blood Pressure 107/68 Pulse Oximetry 98 Oxygen Delivery 08/18/21 16:00 08/18/21 16:00 08/18/21 16:00 Temperature 37.6 C H Pulse Rate 110 H 110 H Respiratory Rate 29 H 29 H Blood Pressure 93/56 L Pulse Oximetry 100 100 Oxygen Delivery Room Air 08/18/21 18:00 08/18/21 18:00 08/18/21 20:00 Temperature 37.7 C H Pulse Rate 108 H 108 H 108 H Respiratory Rate 25 H 26 H Blood Pressure 110/58 L 142/82 H Pulse Oximetry 100 100 Oxygen Delivery 08/18/21 20:37 08/18/21 21:00 08/18/21 21:00 Temperature Pulse Rate 110 H 111 H Respiratory Rate 16 Blood Pressure 142/82 H Pulse Oximetry 100 Oxygen Delivery Room Air 08/18/21 20:00 08/18/21 20:00 08/18/21 21:30 Temperature Pulse Rate 103 H 113 H Respiratory Rate Blood Pressure 104/75 Pulse Oximetry Oxygen Delivery Room Air 08/18/21 21:58 08/18/21 22:00 08/18/21 22:00 Temperature Pulse Rate 116 H 114 H 114 H Respiratory Rate 16 Blood Pressure 131/73 119/63 Pulse Oximetry 100 Oxygen Delivery 08/18/21 23:02 08/19/21 00:00
--- NOTE | 2021-08-19 11:31 | PCNFU ---
Nutrition Follow-Up Complete: Increased Protein needs as related to wounds as evidenced by pressure ulcers reported Goal: Meet estimated nutritional needs Patient has limited progress towards goal. We will continue current goal. Pt current nutrition is NPO. Last recorded weight is 95.2 kg, up from 92.3 kg on admit. Bowel Motility: +BM reported 08/19 Labs Reviewed: Mg 1.5, GFR 12, BUN 53, Cr 3.6,Hgb 9.0,Hct 28.1, Alb 2.7 Meds Noted:Ultram, Protonix, Zosyn, Ferrous Sulfate,Atrovent, Cymbalta, Vancomycin Skin: Stage III pressure ulcer-coccyx, Deep Tissue ulcer-right heel, Bilateral buttock-maceration Additional Notes: Patient NPO at this time. Plans for advancing diet as tolerated to clear liquids. Diet supplement add of Marquez BID for would healing providing an additional 90 kcals and 2.5 gms protein. Agree with diet orders. Monitoring: Will monitor every 3 days.
--- NOTE | 2021-08-19 11:44 | WPDINTPN ---
Progress Note: A&P Assessment and Plan (1) Septic shock: Code(s): A41.9 - Sepsis, unspecified organism; R65.21 - Severe sepsis with septic shock Status: Acute Assessment and Plan: Patient presented with nausea, vomiting with coffee-ground emesis, hypotension. Was septic shock in the ER, likely secondary UTI -adequately fluid-resuscitated since admission -right IJ central line inserted on 08/18 - lactic acid has normalized -continue to wean Bertram-Synephrine and maintain MAP > 70 mmHg for adequate end organ perfusiony -improved urine output with clear urine -continue Zosyn and vancomycin (08/18/2021) -08/17/2021: Blood cultures growing E coli sensitivities pending -08/17/2021 urine culture: mixed genital uzair isolated 08/18/2021: CT scan of the abdomen and pelvis: IMPRESSION: 1. Mild pulmonary edema. Small pleural effusions. 2. 7 mm pulmonary nodule, probably benign. Noncontrast low-dose chest CT is recommended in 6 months. 3. Small pleural effusions. 4. Bilateral kidney stones. Left internal ureteral stent in expected position. 5. Distended, stool-filled rectosigmoid, which may be adynamic ileus or stool impaction. 6. Subcutaneous gas in anterior right thigh. If there has been no pe (2) Acute UTI: Code(s): N39.0 - Urinary tract infection, site not specified Status: Acute Assessment and Plan: Urine analysis reflective of UTI -urine cultures as above -continue Zosyn -patient had a UTI with E coli which was pansensitive in March 2021 (3) Acute upper gastrointestinal hemorrhage: Code(s): K92.2 - Gastrointestinal hemorrhage, unspecified Status: Acute Assessment and Plan: Coffee-ground emesis [facility] at [facility], no more episodes since admission -GI has been consulted -Protonix IV q.12 hours (4) Acute renal failure: Qualifiers: Acute renal failure type: unspecified Qualified Code(s): N17.9 - Acute kidney failure, unspecified Code(s): N17.9 - Acute kidney failure, unspecified Status: Acute Assessment and Plan: Acute renal failure likely related to hypovolemia, septic shock, UTI, ATN -patient adequately fluid-resuscitated since admission -urine lytes are not prerenal, CK are normal -continue maintenance IV fluids -08/18/2021: Renal ultrasound: Unremarkable renal ultrasound.? No stones, masses or hydronephrosis -appreciate Nephrology evaluation recommendations -continue to monitor renal function urine output and electrolytes (5) ANNE and COPD overlap syndrome: Code(s): G47.33 - Obstructive sleep apnea (adult) (pediatric); J44.9 - Chronic obstructive pulmonary disease, unspecified Status: Acute Assessment and Plan: Continue bronchodilators Plan Will start clear liquid diet and advance as tolerated Discontinue IV fluids once patient is tolerating p.o. diet Additional Plan DVT prophylaxis: SCDs, no chemoprophylaxis as patient was admitted with coffee-ground emesis Nutrition: Will start with clear liquid diet and advance as tolerated low-sodium diet Discussed with patient updated with her condition and plan of care. Code status: DNR Critical care time spent: 34 minutes This dictation may have been done utilizing a voice recognition system. Attempts have been made to correct errors. However, there may be uncorrected grammatical, spelling, and recognition errors present. Due to a high probability of clinically significant, life threatening deterioration, the patient required my highest level of preparedness to intervene emergently and I personally spent this critical care time directly and personally managing the patient. This critical care time included obtaining a history; examining the patient; pulse oximetry; ordering and review of studies; arranging urgent treatment with development of a management plan; evaluation of patient's response to treatment; frequent reassessment; and discussions with other providers. It wa
--- NOTE | 2021-08-19 17:28 | PM.IMPN ---
Progress Note: A&P Assessment and Plan (1) Septic shock: Code(s): A41.9 - Sepsis, unspecified organism; R65.21 - Severe sepsis with septic shock Status: Acute Assessment and Plan: Patient presented with nausea, vomiting with coffee-ground emesis, hypotension. Was septic shock in the ER, likely secondary UTI -patient received IV fluids in the ER -will give additional IV fluids in the ICU here as patient seems to be hypovolemic -lactic acid has increased, will continue to trend -right IJ central line was inserted emergently this morning as her systolic blood pressures were in the 50s and 60s and she was on Bertram-Synephrine via peripheral access -will continue Bertram-Synephrine and maintain MAP > 70 mmHg for adequate end organ perfusion -patient also has acute kidney injury -blood and urine cultures have been obtained and pending -continue Zosyn -will add vancomycin for empiric treatment, will deescalated if blood cultures are negative. 08/18/2021 interval history: patient with septic shock suspect secondary to UTI urine and blood cultures are pending is being treated Zosyn and vancomycin, patient is hypotensive on pressors and being hydrated patient seen by intensive and nephrology, remains clinically stable will continue to monitor and further recommendation to follow. 08/19/2021 interval history: patient with septic shock suspect secondary to UTI, 1 bottle of blood culture is growing E coli, urine culture no growth so far, patient is being treated Zosyn and vancomycin, patient is still hypotensive on pressors and being hydrated patient seen by intensive and nephrology, there is slight increase in urine output, 1 bottle of blood culture is growing E coli, urine culture no growth so far, remains clinically stable will continue to monitor and further recommendation to follow. (2) Acute UTI: Code(s): N39.0 - Urinary tract infection, site not specified Status: Acute Assessment and Plan: Urine analysis reflective of UTI -urine cultures have been obtained pending -continue Zosyn -patient had a UTI with E coli which was pansensitive in March 2021 (3) Acute upper gastrointestinal hemorrhage: Code(s): K92.2 - Gastrointestinal hemorrhage, unspecified Status: Acute Assessment and Plan: Coffee-ground emesis noted at the [facility], no episodes in the ICU overnight or this morning -GI has been consulted -Protonix IV q.12 hours (4) Acute renal failure: Qualifiers: Acute renal failure type: unspecified Qualified Code(s): N17.9 - Acute kidney failure, unspecified Code(s): N17.9 - Acute kidney failure, unspecified Status: Acute Assessment and Plan: Acute renal failure likely related to hypovolemia, septic shock, UTI, ATN -patient has received IV fluids in the ER, will give additional IV fluids in the ICU she still seems to be hypovolemic -continue maintenance IV fluids -obtain renal ultrasound and urine lytes -nephrology has been consulted -continue to monitor renal function urine output and electrolytes (5) ANNE and COPD overlap syndrome: Code(s): G47.33 - Obstructive sleep apnea (adult) (pediatric); J44.9 - Chronic obstructive pulmonary disease, unspecified Status: Acute Assessment and Plan: Start bronchodilators as patient is wheezing Plan Trend lactic acid RUQ ultrasound, Renal ultrasound Urine lytes And vancomycin Subjective Date/time seen: 08/19/21 17:28 08/19/2021 interval history: patient with septic shock suspect secondary to UTI, 1 bottle of blood culture is growing E coli, urine culture no growth so far, patient is being treated Zosyn and vancomycin, patient is still hypotensive on pressors and being hydrated patient seen by intensive and nephrology, there is slight increase in urine output, 1 bottle of blood culture is growing E coli, urine culture no growth so far, remains clinically stable will continue to monitor and furt
[2021-08-19] MEDS: ACETAMINOPHEN 500 MG TABLET PO (17:35)
[2021-08-20] VITALS (24 sets, daily range): BP systolic 103–135; BP diastolic 60–84; PULSE 89–113; RESP 12–23; TEMP 36–36.9; O2SAT 97–99
[2021-08-20] MEDS: IPRATROPIUM BR 0.02% INH SOLN 0.5 MG/2.5 ML VIAL INHALATION ×4 (02:27→20:07)
[2021-08-20] MEDS: LEVALBUTEROL NEB 1.25 MG/3 ML 0.63 MG INHALATION ×4 (02:27→20:07)
[2021-08-20] MEDS: SODIUM CHLORIDE 0.9% IV 1,000 ML 100 ML IV CONT (04:37)
[2021-08-20] MEDS: CENTRAL LINE FLUSH 10 ML IV PUSH ×4 (04:37→22:33)
[2021-08-20] MEDS: traMADol HCL (*CRX) 50 MG TABLET PO (05:49)
[2021-08-20 06:05] LABS: Hemoglobin 8.3 g/dL (12.0-15.0); Mean Corpuscular HGB Conc 31.9 g/dl (32-36); Mean Corpuscular Hemoglobin 28.6 pg (26-34); Mean Corpuscular Volume 89.7 fl (80-100); Platelet Count Result 192 k/mm3 (150-375); Red Cell Distribution Width 16.1 % (11.5-14.5); White Blood Count 14.1 K/mm3 (4.5-10.0)
[2021-08-20 06:24] LABS: Alanine Aminotransferase 13 U/L (6-35); Albumin Level 2.7 g/dL (3.5-5.1); Alkaline Phosphatase 85 U/L (38-126); Anion Gap 9 mmol/L (8-16); Aspartate Amino Transferase 16 U/L (14-36); Bilirubin,Total 0.7 mg/dL (0.2-1.3); Blood Urea Nitrogen 56 mg/dL (7-17); Calcium 7.4 mg/dL (8.4-10.2); Carbon Dioxide 15 mmol/L (22-30); Chloride 111 mmol/L (98-107); Estimated CRCL calculation 13 ml/min; Estimated Glomerular Filt Rate 13; Glucose 89 mg/dL (65-110); Magnesium 2.1 mg/dL (1.6-2.3); Phosphorus 3.9 mg/dL (2.5-4.5); Potassium 3.9 mmol/L (3.4-5.0); Sodium 135 mmol/L (137-145)
[2021-08-20 06:25] LABS: Lactic Acid Reflex 0.7 mmol/L (0.7-2.0)
[2021-08-20 07:56] LABS: Band Neutrophils Percent 13 % (0-6); Eosinophils Absolute Manual 0.28 K/mm3 (0.02-0.5); Eosinophils Percent Manual 2 % (0-4); Lymphocytes Absolute Manual 1.12 K/mm3 (1.1-4.5); Monocytes Absolute Manual 0.42 K/mm3 (0.1-0.90); Monocytes Percent Manual 3 % (3-9); Neutrophils Absolute Manual 12.26 K/mm3 (1.7-7.2); Neutrophils Percent Manual 74 % (46-73); Total Cells Counted 100
[2021-08-20 07:57] LABS: Burr Cells 1+ (NORMAL); Platelet Estimate Adequate (Adequate)
[2021-08-20] MEDS: SODIUM BICARBONATE 8.4% 50 MEQ/50 ML SYRINGE IV PUSH (08:03)
[2021-08-20] MEDS: cefTRIAXone 2 GM in SODIUM CHLORIDE 0.9% IV 100 ML 200 ML IVPB (08:07)
[2021-08-20] MEDS: PANTOPRAZOLE SODIUM IV 40 MG VIAL IV PUSH ×2 (08:08→22:32)
--- NOTE | 2021-08-20 08:13 | WPDINTPN ---
Progress Note: A&P Assessment and Plan (1) Septic shock: Code(s): A41.9 - Sepsis, unspecified organism; R65.21 - Severe sepsis with septic shock Status: Acute Assessment and Plan: Patient presented with nausea, vomiting with coffee-ground emesis, hypotension. Was septic shock in the ER, likely secondary UTI -adequately fluid-resuscitated since admission -right IJ central line inserted on 08/18 - lactic acid has normalized - OFF Bertram-Synephrine -improved urine output with clear urine -08/17/2021: Blood cultures growing E coli, pansensitive -08/17/2021 urine culture: mixed genital uzair isolated -vancomycin was discontinued on 08/19/2021 -discontinue Zosyn, start Ceftriaxone on 08/20/2021 08/18/2021: CT scan of the abdomen and pelvis: IMPRESSION: 1. Mild pulmonary edema. Small pleural effusions. 2. 7 mm pulmonary nodule, probably benign. Noncontrast low-dose chest CT is recommended in 6 months. 3. Small pleural effusions. 4. Bilateral kidney stones. Left internal ureteral stent in expected position. 5. Distended, stool-filled rectosigmoid, which may be adynamic ileus or stool impaction. 6. Subcutaneous gas in anterior right thigh. If there has been no pe (2) Acute UTI: Code(s): N39.0 - Urinary tract infection, site not specified Status: Acute Assessment and Plan: Urine analysis reflective of UTI -urine cultures as above -Zosyn discontinued, patient start on ceftriaxone on 08/20/2021 -patient had a UTI with E coli which was pansensitive in March 2021 (3) Acute upper gastrointestinal hemorrhage: Code(s): K92.2 - Gastrointestinal hemorrhage, unspecified Status: Acute Assessment and Plan: [facility] no more episodes since admission -GI has been consulted -Protonix IV q.12 hours (4) Acute renal failure: Qualifiers: Acute renal failure type: unspecified Qualified Code(s): N17.9 - Acute kidney failure, unspecified Code(s): N17.9 - Acute kidney failure, unspecified Status: Acute Assessment and Plan: Acute renal failure likely related to hypovolemia, septic shock, UTI, ATN -patient adequately fluid-resuscitated since admission -urine lytes are not prerenal, CK are normal -improving urine output and creatinine, will hold maintenance IV fluids as patient has started oral intake -08/18/2021: Renal ultrasound: Unremarkable renal ultrasound.? No stones, masses or hydronephrosis -appreciate Nephrology evaluation recommendations -continue to monitor renal function urine output and electrolytes (5) ANNE and COPD overlap syndrome: Code(s): G47.33 - Obstructive sleep apnea (adult) (pediatric); J44.9 - Chronic obstructive pulmonary disease, unspecified Status: Acute Assessment and Plan: Continue bronchodilators Plan Will start clear liquid diet and advance as tolerated Discontinue IV fluids Off Bertram-Synephrine Additional Plan DVT prophylaxis: SCDs, no chemoprophylaxis as patient was admitted with coffee-ground emesis Nutrition: Continue oral diet, advance as tolerated Discussed with patient updated with her condition and plan of care. Code status: DNR Critical care time spent: 32 minutes This dictation may have been done utilizing a voice recognition system. Attempts have been made to correct errors. However, there may be uncorrected grammatical, spelling, and recognition errors present. Due to a high probability of clinically significant, life threatening deterioration, the patient required my highest level of preparedness to intervene emergently and I personally spent this critical care time directly and personally managing the patient. This critical care time included obtaining a history; examining the patient; pulse oximetry; ordering and review of studies; arranging urgent treatment with development of a management plan; evaluation of patient's response to treatment; frequent reassessment
[2021-08-20] MEDS: FOLIC ACID 1 MG TABLET PO (08:16)
[2021-08-20] MEDS: MULTIVITAMINS /C LUTEIN (CENTRUM SILVER) TABLET *BKC 1 TAB PO (08:16)
[2021-08-20] MEDS: ACETAMINOPHEN 500 MG TABLET PO (08:16)
[2021-08-20] MEDS: DULoxetine HCL 60 MG CAPSULE.DR PO (08:16)
[2021-08-20] MEDS: polyethylene glycoL 3350 17 GM POWD.PACK PO ×2 (08:17→16:35)
[2021-08-20] MEDS: TOLNAFTATE 1% POWDER 45 GM BTL 1 APPLIC TOPICAL ×2 (08:17→22:33)
[2021-08-20] MEDS: OMEGA 3 POLYUNSAT FATTY ACIDS 1 GM CAP PO (08:17)
--- NOTE | 2021-08-20 11:19 | PM.IMPN ---
Progress Note: A&P Assessment and Plan (1) Septic shock: Code(s): A41.9 - Sepsis, unspecified organism; R65.21 - Severe sepsis with septic shock Status: Acute Assessment and Plan: Patient presented with nausea, vomiting with coffee-ground emesis, hypotension. Was septic shock in the ER, likely secondary UTI -patient received IV fluids in the ER -will give additional IV fluids in the ICU here as patient seems to be hypovolemic -lactic acid has increased, will continue to trend -right IJ central line was inserted emergently this morning as her systolic blood pressures were in the 50s and 60s and she was on Bertram-Synephrine via peripheral access -will continue Bertram-Synephrine and maintain MAP > 70 mmHg for adequate end organ perfusion -patient also has acute kidney injury -blood and urine cultures have been obtained and pending -continue Zosyn -will add vancomycin for empiric treatment, will deescalated if blood cultures are negative. 08/18/2021 interval history: patient with septic shock suspect secondary to UTI urine and blood cultures are pending is being treated Zosyn and vancomycin, patient is hypotensive on pressors and being hydrated patient seen by intensive and nephrology, remains clinically stable will continue to monitor and further recommendation to follow. 08/19/2021 interval history: patient with septic shock suspect secondary to UTI, 1 bottle of blood culture is growing E coli, urine culture no growth so far, patient is being treated Zosyn and vancomycin, patient is still hypotensive on pressors and being hydrated patient seen by intensive and nephrology, there is slight increase in urine output, 1 bottle of blood culture is growing E coli, urine culture no growth so far, remains clinically stable will continue to monitor and further recommendation to follow. 08/20/2021 interval history: patient with septic shock suspect secondary to UTI, 1 bottle of blood culture is growing E coli, pansensitive, urine culture no growth so far, patient was treated with Zosyn and vancomycin, and today shake maker DC Zosyn and vancomycin started the patient on ceftriaxone, patient blood pressure is trending up patient is off pressors, patient remains clinically stable, patient seen by intensive and nephrology, there is slight increase in urine output, will transfer patient out of ICU to IMU today. (2) Acute UTI: Code(s): N39.0 - Urinary tract infection, site not specified Status: Acute Assessment and Plan: Urine analysis reflective of UTI -urine cultures have been obtained pending -continue Zosyn -patient had a UTI with E coli which was pansensitive in March 2021 (3) Acute upper gastrointestinal hemorrhage: Code(s): K92.2 - Gastrointestinal hemorrhage, unspecified Status: Acute Assessment and Plan: Coffee-ground emesis noted at the [facility], no episodes in the ICU overnight or this morning -GI has been consulted -Protonix IV q.12 hours (4) Acute renal failure: Qualifiers: Acute renal failure type: unspecified Qualified Code(s): N17.9 - Acute kidney failure, unspecified Code(s): N17.9 - Acute kidney failure, unspecified Status: Acute Assessment and Plan: Acute renal failure likely related to hypovolemia, septic shock, UTI, ATN -patient has received IV fluids in the ER, will give additional IV fluids in the ICU she still seems to be hypovolemic -continue maintenance IV fluids -obtain renal ultrasound and urine lytes -nephrology has been consulted -continue to monitor renal function urine output and electrolytes (5) ANNE and COPD overlap syndrome: Code(s): G47.33 - Obstructive sleep apnea (adult) (pediatric); J44.9 - Chronic obstructive pulmonary disease, unspecified Status: Acute Assessment and Plan: Start bronchodilators as patient is wheezing Plan Trend lactic acid RUQ ultrasound, Renal ultrasound Urine lytes And vancomyc
--- NOTE | 2021-08-20 12:12 | PM.PNNEP ---
Progress Note: A&P Additional Plan 1. Dasia has acute kidney injury. the patient had a creatinine of 1.6 on discharge in March. She may or may not have underlying chronic kidney disease. urine electrolytes are non pre renal urinalysis shows signs of infection CK is normal renal ultrasound is unremarkable CT abdomen noted The patient has hypotension and sepsis. Her blood pressure is doing well. She is off pressors. She is on antibiotics. She is making more urine. her creatinine is slightly better. Continue supportive care. 2. The patient has history of kidney stones. There are stones there. No obstruction seen. 3. The patient has hypertension. Her blood pressure meds are on hold because of her hypotension. cortisol level is fine 4. The patient has a history of severe aortic stenosis. Supportive care. 5. The patient has COPD and sleep apnea. She is getting supportive care. 6. Her bicarbonate level is low, however it is about the same. Anion gap is stable. Her IV fluids were stopped last she developed volume overload. Will use oral bicarb now. 7. Schizoaffective disorder. Getting supportive care. 8. The patient is anemic. Her hemoglobin has dropped to 8.3. Will start Epogen. Subjective Date/time seen: 08/20/21 12:12 Interval history: care looks a little better today. Comfortable and smiling. She denies any shortness of breath or chest pain. Exam Narrative: WDWN in NAD skin no rash or subcu nodules head ncat lungs clear bilaterally cor reg no rub or gallop abd BS+ nontender and soft ext trace edema. Objective Data Vital Signs Vital Signs: Vital Signs - 24 hr 08/19/21 13:30 08/19/21 13:40 08/19/21 14:00 Temperature 37.0 C Pulse Rate 102 H 104 H 106 H Respiratory Rate 14 16 21 H Blood Pressure 126/72 Pulse Oximetry 99 Oxygen Delivery 08/19/21 14:00 08/19/21 16:00 08/19/21 16:00 Temperature Pulse Rate 103 H 105 H Respiratory Rate Blood Pressure Pulse Oximetry Oxygen Delivery Room Air 08/19/21 16:00 08/19/21 18:00 08/19/21 18:00 Temperature 36.8 C Pulse Rate 105 H 104 H 103 H Respiratory Rate 21 H 18 Blood Pressure 104/63 98/71 L Pulse Oximetry 98 98 Oxygen Delivery 08/19/21 19:45 08/19/21 19:45 08/19/21 19:55 Temperature Pulse Rate 106 H 106 H 108 H Respiratory Rate 18 18 18 Blood Pressure Pulse Oximetry 97 Oxygen Delivery Room Air 08/19/21 20:16 08/19/21 20:00 08/19/21 20:00 Temperature Pulse Rate 107 H 102 H Respiratory Rate Blood Pressure 120/66 Pulse Oximetry 98 Oxygen Delivery Room Air 08/19/21 20:00 08/19/21 21:29 08/19/21 23:10 Temperature 36.6 C Pulse Rate 102 H 101 H 113 H Respiratory Rate 18 19 Blood Pressure 109/71 109/71 110/95 H Pulse Oximetry 99 98 Oxygen Delivery 08/19/21 23:10 08/20/21 00:28 08/20/21 00:00 Temperature Pulse Rate 113 H 108 H Respiratory Rate Blood Pressure 110/95 H 114/70 Pulse Oximetry 99 Oxygen Delivery Room Air 08/20/21 00:00 08/20/21 00:00 08/20/21 02:00 Temperature 36.9 C Pulse Rate 101 H 101 H 108 H Respiratory Rate 12 12 Blood Pressure 117/84 114/72 Pulse Oximetry 99 98 Oxygen Delivery 08/20/21 02:27 08/20/21 02:40 08/20/21 04:00 Temperature Pulse Rate 92 92 Respiratory Rate 20 20 Blood Pressure Pulse Oximetry 98 Oxygen Delivery Room Air 08/20/21 04:00 08/20/21 04:20 08/20/21 04:00 Temperature 36.9 C Pulse Rate 111 H 110 H 109 H Respiratory Rate 23 H Blood Pressure 103/68 106/67 Pulse Oximetry 99 Oxygen Delivery 08/20/21 05:29 08/20/21 08:04 08/20/21 08:05 Temperature Pulse Rate 110 H 112 H Respiratory Rate 12 16 Blood Pressure 111/79 Pulse Oximetry 97 99 Oxygen Delivery Room Air 08/20/21 08:15 08/20/21 08:00 08/20/21 08:00 Temperature Pulse Rate 109 H 110 H Respiratory Rate 16 Blood Pressure Pulse O
[2021-08-20] MEDS: EPOETIN ALFA-EPBX 10,000 UNITS/ML VIAL 10000 UNITS IV PUSH (13:56)
[2021-08-20] MEDS: SODIUM BICARBONATE TAB 650 MG TABLET 1300 MG PO (16:35)
[2021-08-20] MEDS: hydrOXYzine HCL 25 MG TABLET 50 MG PO (22:32)
[2021-08-21] VITALS (23 sets, daily range): BP systolic 104–139; BP diastolic 67–98; PULSE 90–117; RESP 14–22; TEMP 36.1–37; O2SAT 96–99
[2021-08-21] MEDS: LEVALBUTEROL NEB 1.25 MG/3 ML 0.63 MG INHALATION ×4 (02:05→19:58)
[2021-08-21] MEDS: IPRATROPIUM BR 0.02% INH SOLN 0.5 MG/2.5 ML VIAL INHALATION ×4 (02:05→19:58)
[2021-08-21] MEDS: traMADol HCL (*CRX) 50 MG TABLET PO ×2 (05:02→22:12)
[2021-08-21] MEDS: CENTRAL LINE FLUSH 10 ML IV PUSH ×4 (05:04→22:09)
--- NOTE | 2021-08-21 05:37 | PC.NURSE ---
Ultram 50mg PO given at 0502 in anticipation of giving a bath for turning comfort.
[2021-08-21 05:42] LABS: Albumin Level 2.7 g/dL (3.5-5.1); Anion Gap 6 mmol/L (8-16); Blood Urea Nitrogen 53 mg/dL (7-17); Calcium 7.6 mg/dL (8.4-10.2); Carbon Dioxide 20 mmol/L (22-30); Chloride 110 mmol/L (98-107); Estimated CRCL calculation 13 ml/min; Estimated Glomerular Filt Rate 13; Glucose 83 mg/dL (65-110); Potassium 3.6 mmol/L (3.4-5.0); Sodium 136 mmol/L (137-145)
[2021-08-21] MEDS: SODIUM BICARBONATE TAB 650 MG TABLET 1300 MG PO ×2 (08:25→18:26)
[2021-08-21] MEDS: polyethylene glycoL 3350 17 GM POWD.PACK PO ×2 (08:26→18:26)
[2021-08-21] MEDS: TOLNAFTATE 1% POWDER 45 GM BTL 1 APPLIC TOPICAL ×2 (08:26→22:09)
[2021-08-21] MEDS: DULoxetine HCL 60 MG CAPSULE.DR PO (08:26)
[2021-08-21] MEDS: FOLIC ACID 1 MG TABLET PO (08:26)
[2021-08-21] MEDS: FERROUS SULFATE 324 MG TABLET PO (08:26)
[2021-08-21] MEDS: PANTOPRAZOLE SODIUM IV 40 MG VIAL IV PUSH ×2 (08:26→22:08)
[2021-08-21] MEDS: OMEGA 3 POLYUNSAT FATTY ACIDS 1 GM CAP PO (08:26)
[2021-08-21] MEDS: MULTIVITAMINS /C LUTEIN (CENTRUM SILVER) TABLET *BKC 1 TAB PO (08:26)
[2021-08-21] MEDS: cefTRIAXone 2 GM in SODIUM CHLORIDE 0.9% IV 100 ML 200 ML IVPB (08:38)
--- NOTE | 2021-08-21 08:52 | PM.IMPN ---
Progress Note: A&P Assessment and Plan (1) Septic shock: Code(s): A41.9 - Sepsis, unspecified organism; R65.21 - Severe sepsis with septic shock Status: Acute Assessment and Plan: Patient presented with nausea, vomiting with coffee-ground emesis and found to be hypotensive. Was in septic shock in the ER, likely secondary UTI with bacteremia. -patient received IV fluids in the ER and in the ICU -lactic acid was increased -right IJ central line placed emergently as her systolic blood pressures were in the 50s and 60s -she was on Bertram-Synephrine via peripheral access until central line placed -she was successfully weaned off Bertram-Synephrine as we maintained a MAP > 70 mmHg for adequate end organ perfusion -patient also had acute kidney injury -treated with Zosyn (08/18- 08/20) and Vanco 08/18 (once). -UCx negative. BCx (2of2) growing EColi that is pansensitive. Changed to Rocephin 2gm daily on 08/20 -If remains stable, remove central line tomorrow. (2) Acute UTI: Code(s): N39.0 - Urinary tract infection, site not specified Status: Acute Assessment and Plan: Urine analysis reflective of UTI -urine cultures are negative. -BCx growing EColi. -suspect urinary source for the bacteremia; CT showing no evidence of colitis or cholecystitis -still has left ureteral stent in place from March (3) Acute upper gastrointestinal hemorrhage: Code(s): K92.2 - Gastrointestinal hemorrhage, unspecified Status: Acute Assessment and Plan: Coffee-ground emesis noted at the correction but no episodes noted in the ICU -GI was consulted but has not seen the patient yet -continue Protonix IV q.12 hours -Hgb drifting down; recheck HH today (4) Acute renal failure: Qualifiers: Acute renal failure type: unspecified Qualified Code(s): N17.9 - Acute kidney failure, unspecified Code(s): N17.9 - Acute kidney failure, unspecified Status: Acute Assessment and Plan: Acute renal failure likely related to hypovolemia, septic shock and ATN -patient received IV fluids in the ER and ICU -baseline Cr normal in 2019. MANISHA noted in March 2021 and Cr improved to 1.6. -Cr 3.4 on admission and has not changed significantly. -IV fluids have been stopped -renal ultrasound unremarkable -CT scan showing bilateral nonobstructing kidney stones and left ureteral stent -nephrology has been consulted and appreciate their input -continue to monitor renal function urine output and electrolytes -urology consult -check Echo to assess aortic stenosis. (5) ANNE and COPD overlap syndrome: Code(s): G47.33 - Obstructive sleep apnea (adult) (pediatric); J44.9 - Chronic obstructive pulmonary disease, unspecified Status: Acute Assessment and Plan: Patient with mild wheezing. Continue bronchodilators. Hold on steroids. Resume noninvasive ventilation as auto titrate. Plan DVT prophylaxis: SCDs Code status: DNR Subjective Date/time seen: 08/21/21 08:52 Interval history: 80yo female with CHF and schizoaffective disorder who was brought in by EMS from the correction for n/v with coffee-ground emesis and found to have septic shock, UTI, lactic acidosis, leukocytosis, nausea, vomiting, coffee-ground emesis -08/18/2021: E coli bacteremia pansensitive 08/21/2021: Assuming care. Chart reviewed. Patient seen and examined the IMU. She is awake, alert, oriented to place and person but then starts to talk about her picking up her daughter at the [facility] 4 days ago. Patient is bed-bound/WC-bound at the correction. Hx she provides is suspect. She denies orthopnea, PND or SOB. No CP. No problems overnight. No nausea or vomiting. Exam Narrative: AF 96.9 129/67 108 20 97% ra Gen - NARD Neck - Right TLC central line with dressing removed (by patient earlier this morning) Chest - few scattered end expiratory wheezes anteriroly. nml RR CV - RRR S1/S2 with a 2/6 sys
[2021-08-21 10:29] LABS: Basophils Percent Auto 0.3 % (0.2-1.2); Eosinophils Absolute Auto 0.4 K/mm3 (0-0.3); Eosinophils Percent Auto 3.6 % (0-4.4); Hematocrit 27.1 % (37.0-47.0); Hemoglobin 8.5 g/dL (12.0-15.0); Immature Granulocyte Absolute 0.06 K/mm3 (0.00-0.031); Immature Granulocyte Percent A 0.5 % (0-0.5); Lymphocytes Absolute Auto 0.74 K/mm3 (0.9-3.2); Lymphocytes Percent Auto 6.7 % (18.3-44.2); Mean Corpuscular HGB Conc 31.4 g/dl (32-36); Mean Corpuscular Hemoglobin 27.9 pg (26-34); Mean Corpuscular Volume 88.9 fl (80-100); Mean Platelet Volume 8.9 fl (7.4-10.4); Monocytes Absolute Auto 0.7 K/mm3 (0.1-0.6); Monocytes Percent Auto 6.5 % (2.6-8.5); Neutrophils Percent Auto 82.4 % (45.5-73.1); Platelet Count Result 182 k/mm3 (150-375); Red Blood Count 3.05 M/mm3 (4.2-5.4); Red Cell Distribution Width 16.2 % (11.5-14.5)
--- NOTE | 2021-08-21 10:51 | PM.PNNEP ---
Progress Note: A&P Additional Plan 1. Dasia has acute kidney injury. the patient had a creatinine of 1.6 on discharge in March. She may or may not have underlying chronic kidney disease. urine electrolytes are non pre renal urinalysis shows signs of infection CK is normal renal ultrasound is unremarkable CT abdomen noted The patient had hypotension and sepsis. Her blood pressure is doing well. She is off pressors. She is on antibiotics. She is making more urine. her creatinine is about the same again today. Will check another Creatinine tomorrow morning. If it does not get any better consider a renal scan. Continue supportive care. 2. The patient has history of kidney stones. There are stones there. No obstruction seen. 3. The patient has hypertension. Her blood pressure meds are on hold because of her prior hypotension. cortisol level is fine 4. The patient has a history of severe aortic stenosis. Supportive care. 5. The patient has COPD and sleep apnea. She is getting supportive care. 6. Her bicarbonate level is a little higher at 20. She is getting oral bicarb. 7. Schizoaffective disorder. Getting supportive care. 8. The patient is anemic. Her hemoglobin is 8.5. On Epogen. Subjective Date/time seen: 08/21/21 10:51 Interval history: Dasia looks about the same. no shortness of breath. Lying flat in bed. She is eating a little bit. Exam Narrative: WDWN in NAD skin no rash or subcu nodules head ncat lungs clear to auscultation cor reg no rub or gallop abd BS+ nontender and soft ext trace edema. Objective Data Vital Signs Vital Signs: Vital Signs - 24 hr 08/20/21 11:33 08/20/21 12:00 08/20/21 12:00 Temperature 36.9 C Pulse Rate 99 103 H Respiratory Rate 16 Blood Pressure 130/60 Pulse Oximetry 97 Oxygen Delivery Room Air 08/20/21 13:43 08/20/21 13:52 08/20/21 14:00 Temperature Pulse Rate 89 95 96 Respiratory Rate 16 16 Blood Pressure Pulse Oximetry Oxygen Delivery 08/20/21 16:00 08/20/21 16:00 08/20/21 16:00 Temperature 36.7 C Pulse Rate 112 H 101 H Respiratory Rate 16 Blood Pressure 124/63 Pulse Oximetry 97 Oxygen Delivery Room Air 08/20/21 18:00 08/20/21 20:07 08/20/21 20:00 Temperature 36.7 C Pulse Rate 113 H 96 98 Respiratory Rate 14 16 Blood Pressure 132/62 Pulse Oximetry 98 Oxygen Delivery 08/20/21 20:16 08/20/21 20:00 08/20/21 20:00 Temperature Pulse Rate 99 94 Respiratory Rate 16 Blood Pressure Pulse Oximetry 98 Oxygen Delivery Room Air 08/20/21 22:00 08/20/21 23:15 08/21/21 00:00 Temperature 36.7 C Pulse Rate 94 95 110 H Respiratory Rate 20 Blood Pressure 135/75 Pulse Oximetry 98 Oxygen Delivery 08/21/21 00:00 08/21/21 02:00 08/21/21 02:06 Temperature Pulse Rate 95 96 Respiratory Rate 14 Blood Pressure Pulse Oximetry 98 Oxygen Delivery Room Air 08/21/21 02:18 08/21/21 02:19 08/21/21 04:00 Temperature 36.7 C Pulse Rate 98 109 H Respiratory Rate 15 18 Blood Pressure 104/82 Pulse Oximetry 98 97 Oxygen Delivery Room Air 08/21/21 04:00 08/21/21 04:00 08/21/21 06:00 Temperature Pulse Rate 102 H 114 H Respiratory Rate Blood Pressure Pulse Oximetry 97 Oxygen Delivery Room Air 08/21/21 07:52 08/21/21 07:45 08/21/21 07:53 Temperature Pulse Rate 109 H 106 H Respiratory Rate 16 16 Blood Pressure Pulse Oximetry 96 Oxygen Delivery Room Air 08/21/21 08:00 Temperature 36.1 C L Pulse Rate 108 H Respiratory Rate 20 Blood Pressure 129/67 Pulse Oximetry 97 Oxygen Delivery Intake/Output Intake/Output: Intake & Output 08/18/21 08/19/21 08/20/21 08/21/21 23:59 23:59 23:59 23:59 Intake Total 6010 3097 1830 1900 Output Total 475 1000 1725 1275 Balance 5535 6970 105 953 Meds/Results Medications: Active Medications Generic Name Dose
--- NOTE | 2021-08-21 12:48 | WPDURCON ---
Assessment and Plan Assessment and plan (1) Acute UTI: Code(s): N39.0 - Urinary tract infection, site not specified Status: Acute Assessment and Plan: Patient with E coli in urine and blood. Is on broad-spectrum antibiotics. Clinical condition appears to be improving. -continue antibiotics per primary service -in setting of acute infection do not think there urgent role for changing indwelling ureteral stent given lack of hydronephrosis (2) Kidney stones: Code(s): N20.0 - Calculus of kidney Status: Acute Assessment and Plan: Patient has bilateral nonobstructing kidney stones without hydronephrosis on either side. She has a stent in the left ureter that was placed in March for an obstructing ureteral stone. Distant likely needs to be exchanged stone should be treated at some point once clinical condition has stabilized, however at present without hydronephrosis do not think there is no emergent indication for this to be changed would be preferable to pre infection greater prior to any manipulation. (3) MANISHA (acute kidney injury): Code(s): N17.9 - Acute kidney failure, unspecified Status: Acute Assessment and Plan: Creatinine has been 3.4 since admission. Without hydronephrosis and Colindres in place, think obstructive causes relatively unlikely. More likely ATN or other intrinsic renal dysfunction related to infection. Management per Nephrology. Urology Consult Note HPI Date Seen: 08/21/21 Requesting Physician: Barak West MD Primary Care Provider: Cm BeauchampMD Consult Narrative Narrative: Dasia Hernandez is a 80 year old female long-term resident with past medical history significant for congestive heart failure, schizoaffective disorder, iron deficiency anemia, degenerative joint disease admitted for urosepsis with known history of kidney stones and a left ureteral stent in place since March. Urology is consulted for left ureteral stent management. She was brought to the emergency room 08/18/2021 for evaluation for vomiting and change in mental status with moaning and groaning and is complaining of pain in her pelvic area . A Colindres was place, she would have urinary [place] [id number], creatinine was 3.4 Patient has been admitted for further evaluation ,management and treatment. A renal ultrasound showed no hydronephrosis it did not comment on the stent or stones. CT abdomen pelvis was obtained showing IMPRESSION: 1. Mild pulmonary edema. Small pleural effusions. 2. 7 mm pulmonary nodule, probably benign. Noncontrast low-dose chest CT is recommended in 6 months. 3. Small pleural effusions. 4. Bilateral kidney stones. Left internal ureteral stent in expected position. 5. Distended, stool-filled rectosigmoid, which may be adynamic ileus or stool impaction. 6. Subcutaneous gas in anterior right thigh. If there has been no penetrating injury (such as recent line placement), correlate clinically for necrotizing fasciitis. She is stabilized with antibiotics. Her creatinine remain since stable at 3.4, but not improving. On my evaluation she is lying in bed, conversant, disoriented (which appears to be her baseline), in no distress, with no specific complaints. Review of Systems Review of Systems: ROS unobtainable: Yes unobtainable due to mental status PMFSH Past Medical History Medical History Aortic stenosis Reportedly she has severe aortic stenosis and is followed by a echocardiography radiology technologist in [place]. Apparently she has been deemed not a surgical candidate at this time due to her other medical conditions. Brain aneurysm Chronic obstructive pulmonary disease Congestive heart failure Depression with anxiety Hypertension Hypothyroidism Iron deficiency anemia Morbid obesity ANNE and COPD overlap syndrome Surgical History Surgical History (Reviewed 08/21/21 @ 12:57 by
[2021-08-21 15:07] LABS: IFOB Positive Control Positive; Immunochemical Fecal Occult Bl Negative (N)
[2021-08-21] MEDS: hydrOXYzine HCL 25 MG TABLET 50 MG PO (22:12)
[2021-08-22] VITALS (22 sets, daily range): BP systolic 120–149; BP diastolic 73–86; PULSE 90–128; RESP 14–20; TEMP 36.2–36.6; O2SAT 96–100
--- NOTE | 2021-08-22 | ECHO_ITS ---
Patient Info Name: Dasia Hernandez Age: 80 years : 1940 Gender: Female Ht: 62 in Wt: 214 lbs BSA: 2.11 m2 HR: 96 bpm BP: 138 / 73 mmHg Heart Rhythm: Tachycardia, Sinus Rhythm Technical Quality: Fair Exam Date: 08/22/2021 10:20 AM Exam Location: [facility] Pulmonary Patient Status: Inpatient Admit Date: 08/18/2021 Staff Ordering Physician: Dwight Schulte MD Print Line Inspector: Antionette Medina RDCS Attending Provider: Barak West MD Exam Type: CA echo doppler color flow Study Info Indications - aortic stenosis Complete two-dimensional, color flow and Doppler transthoracic echocardiogram is performed with contrast to opacify the left ventricle and to improve the deliniation of the left ventricle endocardial borders. Summary 1. Technically difficult study with limited views. Regional wall motion assessment limited due to poor endomyocardial border definition. 2. Left ventricular chamber dimension is normal. 3. Left ventricular systolic function is hyperdynamic, estimated at >70%. 4. There is no increased left ventricular wall thickness. 5. The left ventricular diastolic function is abnormal. 6. There is moderate to severe aortic valve stenosis with a peak velocity of 354 cm/s, mean gradient of 23 mmHg, and aortic valve area of 0.8 cm2. Compared to 09/03/2019 echocardiogram, peak velocity and mean gradient have decreased from 4.0m/s and 34 mmHg respectively with calculated valve area has decreased where previously 1.0-1.1cm2. 7. The aortic valve is not well visualized. 8. There is trace tricuspid valve regurgitation. 9. No pulmonary hypertension, estimated pulmonary arterial systolic pressure is 31 mmHg. Left Ventricle Left ventricular chamber dimension is normal. Left ventricular systolic function is hyperdynamic, estimated at >70%. There is no increased left ventricular wall thickness. The left ventricular diastolic function is abnormal. Technically difficult study with limited views. Regional wall motion assessment limited due to poor endomyocardial border definition. Right Ventricle Right ventricular chamber dimension is normal. Right ventricular systolic function is normal. Left Atria Left atrial chamber dimension is normal. Right Atria Right atrial chamber dimension is normal. Aortic Valve The aortic valve is not well visualized. There is moderate to severe aortic valve stenosis with a peak velocity of 354 cm/s, mean gradient of 23 mmHg, and aortic valve area of 0.8 cm2. Compared to 09/03/2019 echocardiogram, peak velocity and mean gradient have decreased from 4.0m/s and 34 mmHg respectively with calculated valve area has decreased where previously 1.0-1.1cm2. There is no aortic valve regurgitation. Pulmonic Valve The pulmonic valve is not well visualized. Mitral Valve The mitral valve has thickened leaflets. There is mild mitral valve regurgitation. The mitral valve annulus is mildly calcified. Tricuspid Valve The tricuspid valve leaflets are normal. There is trace tricuspid valve regurgitation. No pulmonary hypertension, estimated pulmonary arterial systolic pressure is 31 mmHg. Pericardium/Pleural The pericardium appears epicardial fat pad. There is small pericardial effusion. Inferior Vena Cava Normal inferior vena cava with >50% collapse upon inspiration consistent with normal right atrial pressure, 5 mmHg. Aorta The aortic root size at the sinus of Valsalva is normal. There is moderate aortic atherosclerosis. Left Ventricu
[2021-08-22] MEDS: IPRATROPIUM BR 0.02% INH SOLN 0.5 MG/2.5 ML VIAL INHALATION ×4 (02:28→20:40)
[2021-08-22] MEDS: LEVALBUTEROL NEB 1.25 MG/3 ML 0.63 MG INHALATION ×4 (02:28→20:40)
[2021-08-22] MEDS: CENTRAL LINE FLUSH 10 ML IV PUSH ×3 (05:38→21:23)
[2021-08-22 05:42] LABS: Basophils Percent Auto 0.3 % (0.2-1.2); Eosinophils Absolute Auto 0.5 K/mm3 (0-0.3); Eosinophils Percent Auto 4.3 % (0-4.4); Hematocrit 27.8 % (37.0-47.0); Immature Granulocyte Absolute 0.08 K/mm3 (0.00-0.031); Immature Granulocyte Percent A 0.7 % (0-0.5); Lymphocytes Absolute Auto 0.91 K/mm3 (0.9-3.2); Lymphocytes Percent Auto 8.1 % (18.3-44.2); Mean Corpuscular HGB Conc 32.4 g/dl (32-36); Mean Corpuscular Hemoglobin 28.6 pg (26-34); Mean Corpuscular Volume 88.3 fl (80-100); Monocytes Percent Auto 8.6 % (2.6-8.5); Neutrophils Absolute Auto 8.7 K/mm3 (1.3-6.7); Platelet Count Result 189 k/mm3 (150-375); Red Blood Count 3.15 M/mm3 (4.2-5.4); Red Cell Distribution Width 16.3 % (11.5-14.5); White Blood Count 11.2 K/mm3 (4.5-10.0)
[2021-08-22 05:54] LABS: INR 1.4; Prothrombin Time 16.3 Seconds (11.1-14.7)
[2021-08-22 05:56] LABS: Ammonia < 9 umol/L (9-30)
[2021-08-22 05:58] LABS: Alanine Aminotransferase 12 U/L (6-35); Albumin Level 2.9 g/dL (3.5-5.1); Alkaline Phosphatase 98 U/L (38-126); Anion Gap 7 mmol/L (8-16); Aspartate Amino Transferase 25 U/L (14-36); Bilirubin,Total 0.4 mg/dL (0.2-1.3); Blood Urea Nitrogen 48 mg/dL (7-17); Calcium 8.1 mg/dL (8.4-10.2); Carbon Dioxide 21 mmol/L (22-30); Chloride 109 mmol/L (98-107); Estimated CRCL calculation 15 ml/min; Estimated Glomerular Filt Rate 15; Glucose 97 mg/dL (65-110); Magnesium 1.9 mg/dL (1.6-2.3); Phosphorus 3.5 mg/dL (2.5-4.5); Potassium 3.5 mmol/L (3.4-5.0); Sodium 137 mmol/L (137-145)
--- NOTE | 2021-08-22 07:16 | WPDUROPN2 ---
Progress Note: A&P Assessment and Plan (1) Kidney stones: Code(s): N20.0 - Calculus of kidney Status: Acute (2) Acute UTI: Code(s): N39.0 - Urinary tract infection, site not specified Status: Acute (3) Left ureteral stone: Code(s): N20.1 - Calculus of ureter Status: Acute Assessment and Plan: Renal function improved with supportive care Ceftriaxone for e. coli bacteremia CT shows bilat. kidney stones / no ureteral stones (may have pushed back into kidney with left ureteral stent placement). Will eventually need left ESWL, following treatment of this infection. Will get KUB to see if stones visible. Subjective Subjective Date/Time Seen: 08/22/21 07:16 Comfortable, feeling better Exam Const: General: no acute distress Resp: Effort & Inspection: normal respiratory effort GI: Inspection: non-distended GI Palp: No abdominal tenderness and No Guarding due to palpation present (GI) Auscultation: normal bowel sounds Objective Data Vital Signs Vital Signs: Vital Signs - 24 hr 08/21/21 07:52 08/21/21 07:45 08/21/21 07:53 Temperature Pulse Rate 109 H 106 H Respiratory Rate 16 16 Blood Pressure Pulse Oximetry 96 Oxygen Delivery Room Air 08/21/21 08:00 08/21/21 08:00 08/21/21 10:00 Temperature 96.9 F L Pulse Rate 108 H 106 H 100 Respiratory Rate 20 Blood Pressure 129/67 Pulse Oximetry 97 Oxygen Delivery 08/21/21 08:00 08/21/21 12:00 08/21/21 12:00 Temperature 98.4 F Pulse Rate 98 94 Respiratory Rate 22 H Blood Pressure 125/98 H Pulse Oximetry 97 98 Oxygen Delivery Room Air 08/21/21 12:00 08/21/21 13:35 08/21/21 13:43 Temperature Pulse Rate 91 90 Respiratory Rate 16 16 Blood Pressure Pulse Oximetry 97 Oxygen Delivery Room Air 08/21/21 14:00 08/21/21 16:16 08/21/21 16:00 Temperature 98.1 F Pulse Rate 92 112 H Respiratory Rate 22 H Blood Pressure 139/73 Pulse Oximetry 98 Oxygen Delivery Autopap 08/21/21 16:00 08/21/21 16:00 08/21/21 18:00 Temperature Pulse Rate 110 H 106 H Respiratory Rate Blood Pressure Pulse Oximetry 97 Oxygen Delivery Room Air 08/21/21 20:00 08/21/21 20:00 08/21/21 20:03 Temperature 97.4 F L Pulse Rate 111 H 111 H 110 H Respiratory Rate 18 20 16 Blood Pressure 127/73 Pulse Oximetry 97 Oxygen Delivery 08/21/21 20:04 08/21/21 23:32 08/21/21 20:00 Temperature 98.6 F Pulse Rate 111 H 117 H 110 H Respiratory Rate 16 16 Blood Pressure 126/74 Pulse Oximetry 99 96 Oxygen Delivery Room Air 08/21/21 20:00 08/21/21 22:00 08/22/21 00:00 Temperature Pulse Rate 116 H 113 H Respiratory Rate Blood Pressure Pulse Oximetry 97 Oxygen Delivery Room Air 08/22/21 00:00 08/22/21 02:36 08/22/21 02:00 Temperature Pulse Rate 109 H 109 H Respiratory Rate 20 Blood Pressure Pulse Oximetry 96 Oxygen Delivery Room Air 08/22/21 03:35 08/22/21 04:00 08/22/21 04:00 Temperature 97.6 F Pulse Rate 99 96 Respiratory Rate 20 Blood Pressure 138/73 Pulse Oximetry 99 96 Oxygen Delivery Room Air Intake/Output Intake/Output: Intake & Output 08/19/21 08/20/21 08/21/21 08/22/21 23:59 23:59 23:59 23:59 Intake Total 3097 1830 2050 Output Total 1000 1725 1550 400 Balance 2097 105 500 -400 Meds/Results Medications: Active Medications Generic Name Dose Route Start Last Admin Trade Name Freq PRN Reason Stop Dose Admin Acetaminophen 500 mg 08/18/21 05:11 08/20/21 08:16 Acetaminophen 500 Mg Tablet PO 500 mg BID PRN Administration Pain Rated 1-3 Ascorbic Acid 500 mg 08/18/21 09:00 Ascorbic Acid 500 Mg Tablet PO DAILY REGINA Calcium Carbonate 500 mg 08/18/21 09:00 Calcium/Vitamin D 500 Mg Tablet PO BID REGINA Duloxetine HCl 60 mg 08/18/21 09:00 08/21/21 08:26 Duloxetine Hcl 60 Mg Capsule.Dr PO 60 mg DAILY REGINA Administration
[2021-08-22] MEDS: cefTRIAXone 2 GM in SODIUM CHLORIDE 0.9% IV 100 ML 200 ML IVPB (08:17)
[2021-08-22] MEDS: SODIUM BICARBONATE TAB 650 MG TABLET 1300 MG PO ×2 (08:18→16:40)
[2021-08-22] MEDS: DULoxetine HCL 60 MG CAPSULE.DR PO (08:18)
[2021-08-22] MEDS: PANTOPRAZOLE SODIUM IV 40 MG VIAL IV PUSH ×2 (08:18→21:15)
[2021-08-22] MEDS: polyethylene glycoL 3350 17 GM POWD.PACK PO ×2 (08:18→16:42)
[2021-08-22] MEDS: FERROUS SULFATE 324 MG TABLET PO (08:19)
[2021-08-22] MEDS: FOLIC ACID 1 MG TABLET PO (08:19)
[2021-08-22] MEDS: OMEGA 3 POLYUNSAT FATTY ACIDS 1 GM CAP PO (08:19)
[2021-08-22] MEDS: MULTIVITAMINS /C LUTEIN (CENTRUM SILVER) TABLET *BKC 1 TAB PO (08:19)
[2021-08-22] MEDS: TOLNAFTATE 1% POWDER 45 GM BTL 1 APPLIC TOPICAL ×2 (08:23→21:22)
--- NOTE | 2021-08-22 09:36 | PM.IMPN ---
Progress Note: A&P Assessment and Plan (1) Septic shock: Code(s): A41.9 - Sepsis, unspecified organism; R65.21 - Severe sepsis with septic shock Status: Acute Assessment and Plan: Patient presented with nausea, vomiting with coffee-ground emesis and found to be hypotensive. Was in septic shock in the ER, likely secondary UTI with bacteremia. -patient received IV fluids in the ER and in the ICU -lactic acid was increased -right IJ central line placed emergently as her systolic blood pressures were in the 50s and 60s -she was on Bertram-Synephrine via peripheral access until central line placed -she was successfully weaned off Bertram-Synephrine as we maintained a MAP > 70 mmHg for adequate end organ perfusion -patient also had acute kidney injury -treated with Zosyn (08/18- 08/20) and Vanco 08/18 (once). -UCx negative. BCx (2of2) growing EColi that is pansensitive. Changed to Rocephin 2gm daily on 08/20 -Will need removal of central line prior to discharge -Overall clinically improved. Will need at least 7 days of IV ceftriaxone at 2 g IV daily (2) Acute UTI: Code(s): N39.0 - Urinary tract infection, site not specified Status: Acute Assessment and Plan: Urine analysis reflective of UTI -urine cultures are negative. -BCx growing EColi. -suspect urinary source for the bacteremia; CT showing no evidence of colitis or cholecystitis -still has left ureteral stent in place from March (3) Acute upper gastrointestinal hemorrhage: Code(s): K92.2 - Gastrointestinal hemorrhage, unspecified Status: Acute Assessment and Plan: Coffee-ground emesis noted at the [facility] but no episodes noted in the ICU. RUQ US shows cirrhosis. -GI was consulted but has not seen the patient yet -continue Protonix IV q.12 hours -6/20 H/H stable today (4) Acute renal failure: Qualifiers: Acute renal failure type: unspecified Qualified Code(s): N17.9 - Acute kidney failure, unspecified Code(s): N17.9 - Acute kidney failure, unspecified Status: Acute Assessment and Plan: Acute renal failure likely related to hypovolemia, septic shock and ATN -patient received IV fluids in the ER and ICU -baseline Cr normal in 2019. MANISHA noted in March 2021 and Cr improved to 1.6. -Cr 3.4 on admission and has not changed significantly. -IV fluids have been stopped -renal ultrasound unremarkable -CT scan showing bilateral nonobstructing kidney stones and left ureteral stent -nephrology has been consulted and appreciate their input -continue to monitor renal function urine output and electrolytes -urology consult -check Echo to assess aortic stenosis. -08/22 echo being completed this morning during exam. Creatinine down to 3.00 today. Will continue to avoid nephrotoxic agents and renally dose medication. Appreciate recommendations from Nephrology (5) ANNE and COPD overlap syndrome: Code(s): G47.33 - Obstructive sleep apnea (adult) (pediatric); J44.9 - Chronic obstructive pulmonary disease, unspecified Status: Acute Assessment and Plan: Patient with mild wheezing. Continue bronchodilators. Hold on steroids. Resume noninvasive ventilation as auto titrate. (6) Hypertension: Qualifiers: Hypertension type: essential hypertension Qualified Code(s): I10 - Essential (primary) hypertension Code(s): I10 - Essential (primary) hypertension Status: Acute Assessment and Plan: On carvedilol at home. This has been held due to acute illness. HR increasing. No known hx of atrial fibrillation. Will continue to hold carvedilol for now until complete assessment of . Will plan to restart at 3.125 mg BID tomorrow. Plan DVT prophylaxis: SCDs Code status: DNR Subjective Date/time seen: 08/22/21 09:36 Patient denies dysuria or abdominal pain. Patient is denies having aortic stenosis but says she was told by her previous doctor she needed
--- NOTE | 2021-08-22 12:19 | PM.PNNEP ---
Progress Note: A&P Additional Plan 1. Dasia has acute kidney injury. the patient had a creatinine of 1.6 on discharge in March. She may or may not have underlying chronic kidney disease. urine electrolytes are non pre renal urinalysis shows signs of infection CK is normal renal ultrasound is unremarkable CT abdomen noted The patient had hypotension and sepsis. Her blood pressure is doing well. She is off pressors. She is on Ceftriaxone. She is making more urine. her creatinine is Better today, down to 3.0. Continue supportive care. 2. The patient has history of kidney stones. There are stones there. No obstruction seen. 3. The patient has hypertension. Her blood pressure meds are on hold. BP is still doing fine. 4. The patient has a history of severe aortic stenosis. Supportive care. 5. The patient has COPD and sleep apnea. She is getting supportive care. 6. Her bicarbonate level is a little higher at 20. She is getting oral bicarb. 7. Schizoaffective disorder. Getting supportive care. 8. The patient is anemic. Her hemoglobin is 9. On Epogen. Subjective Date/time seen: 08/22/21 12:19 Interval history: Dasia looks about the same. In good spirits. Eating pretty well. Exam Narrative: WDWN in NAD skin no rash or subcu nodules head ncat lungs clear bilaterally cor reg no rub or gallop abd BS+ nontender and soft ext trace edema and no cyanosis.. Objective Data Vital Signs Vital Signs: Vital Signs - 24 hr 08/21/21 13:35 08/21/21 13:43 08/21/21 14:00 Temperature Pulse Rate 91 90 92 Respiratory Rate 16 16 Blood Pressure Pulse Oximetry Oxygen Delivery 08/21/21 16:16 08/21/21 16:00 08/21/21 16:00 Temperature 36.7 C Pulse Rate 112 H Respiratory Rate 22 H Blood Pressure 139/73 Pulse Oximetry 98 97 Oxygen Delivery Autopap Room Air 08/21/21 16:00 08/21/21 18:00 08/21/21 20:00 Temperature Pulse Rate 110 H 106 H 111 H Respiratory Rate 18 Blood Pressure Pulse Oximetry Oxygen Delivery 08/21/21 20:00 08/21/21 20:03 08/21/21 20:04 Temperature 36.3 C L Pulse Rate 111 H 110 H 111 H Respiratory Rate 20 16 16 Blood Pressure 127/73 Pulse Oximetry 97 99 Oxygen Delivery Room Air 08/21/21 23:32 08/21/21 20:00 08/21/21 20:00 Temperature 37.0 C Pulse Rate 117 H 110 H Respiratory Rate 16 Blood Pressure 126/74 Pulse Oximetry 96 97 Oxygen Delivery Room Air 08/21/21 22:00 08/22/21 00:00 08/22/21 00:00 Temperature Pulse Rate 116 H 113 H Respiratory Rate Blood Pressure Pulse Oximetry 96 Oxygen Delivery Room Air 08/22/21 02:36 08/22/21 02:00 08/22/21 03:35 Temperature 36.4 C Pulse Rate 109 H 109 H 99 Respiratory Rate 20 20 Blood Pressure 138/73 Pulse Oximetry 99 Oxygen Delivery 08/22/21 04:00 08/22/21 04:00 08/22/21 07:22 Temperature 36.6 C Pulse Rate 96 94 Respiratory Rate 14 Blood Pressure 133/73 Pulse Oximetry 96 97 Oxygen Delivery Room Air 08/22/21 09:02 08/22/21 09:00 08/22/21 09:06 Temperature Pulse Rate 100 100 100 Respiratory Rate 16 18 18 Blood Pressure Pulse Oximetry 98 Oxygen Delivery Room Air Intake/Output Intake/Output: Intake & Output 08/19/21 08/20/21 08/21/21 08/22/21 23:59 23:59 23:59 23:59 Intake Total 3097 1830 2150 100 Output Total 1000 1725 1550 400 Balance 2097 105 600 -300 Meds/Results Medications: Active Medications Generic Name Dose Route Start Last Admin Trade Name Freq PRN Reason Stop Dose Admin Acetaminophen 500 mg 08/18/21 05:11 08/20/21 08:16 Acetaminophen 500 Mg Tablet PO 500 mg BID PRN Administration Pain Rated 1-3 Ascorbic Acid 500 mg 08/18/21 09:00 Ascorbic Acid 500 Mg Tablet PO DAILY REGINA Calcium Carbonate 500 mg 08/18/21 09:00 Calcium/Vitamin D 500 Mg Tablet PO BID REGINA Duloxetine HCl 60 mg 08/18/21 09:00 06
--- NOTE | 2021-08-22 15:31 | PCNFU ---
Nutrition Follow-Up Complete: Increased Protein needs as related to wounds as evidenced by pressure ulcers reported Goal: Meet estimanted nutritional needs Pt. is making little progress towards goal. Continue with current goal. Pt current nutrition is Soft and Bite Sized, L6/ 2gm (low sodium) Na diet and dietary supplements Nutrition recommendation: Continue encouraging intake of diet and dietary supplements. Continue assisting with feedings as needed. Last recorded weight is 98.3 kg, up 1kg from last reported wt on 08/22. Continue with daily weights. Bowel Motility: +BM reported 08/21 Labs Reviewed: Hgb 9.0, Hct 27.8, Alb 2.9, Ca 8.1, BUN 48, Cr 3.0 Meds Noted: Ceftriaxone, Sodium Chloride, Cymbalta, Ferrous Sulfate, Fish Oil, Folic Acid, Atrovent Neb, Levalbuterol Hcl, Multivitamin, Protoniz, Miralax, Sodium Bicarbonate Skin: Right lateral heel pressure ulcer - Deep Tissue, Coccyx pressure ulcer - Stage III, and maceration of groin, lower abdomen, breast skin fold, and bilateral buttocks Additional Notes: Pt. remains confused. Current nutrition is a Soft and Bite Sized, L6/Low Sodium diet with reported intake of 50% (breakfast 08/21) and 25% (breakfast 08/22). Report of pt. refusing dinner 08/20, lunch 08/21, and dinner 08/21. Assist with feedings as needed. Pt. is receiving dietary supplement of Marquez BID providing an additional 90kcal and 2.5g of protein per packet. RDN added orders for an additional dietary supplement of Ensure Compact BID to provide an additional 220kcal and 9g of protein per shake. Agree with diet orders at this time. Will continue to follow. Will monitor every 3 days.
[2021-08-22] MEDS: traMADol HCL (*CRX) 50 MG TABLET PO (16:41)
[2021-08-22] MEDS: hydrOXYzine HCL 25 MG TABLET 50 MG PO (21:16)
[2021-08-22] MEDS: ACETAMINOPHEN 500 MG TABLET PO (21:18)
[2021-08-23] VITALS (24 sets, daily range): BP systolic 122–136; BP diastolic 69–81; PULSE 90–132; RESP 16–22; TEMP 35.6–37.1; O2SAT 95–100
[2021-08-23] MEDS: IPRATROPIUM BR 0.02% INH SOLN 0.5 MG/2.5 ML VIAL INHALATION ×3 (02:38→14:08)
[2021-08-23] MEDS: LEVALBUTEROL NEB 1.25 MG/3 ML 0.63 MG INHALATION ×3 (02:38→14:08)
[2021-08-23] MEDS: CENTRAL LINE FLUSH 10 ML IV PUSH ×3 (05:59→22:09)
--- NOTE | 2021-08-23 07:03 | WPDUROPN2 ---
Progress Note: A&P Assessment and Plan (1) Kidney stones: Code(s): N20.0 - Calculus of kidney Status: Acute (2) Acute UTI: Code(s): N39.0 - Urinary tract infection, site not specified Status: Acute (3) Left ureteral stone: Code(s): N20.1 - Calculus of ureter Status: Acute Assessment and Plan: Renal function improved with supportive care Ceftriaxone for e. coli bacteremia CT shows bilat. kidney stones / no ureteral stones (may have pushed back into kidney with left ureteral stent placement). Will eventually need left ESWL, following treatment of this infection. Will get KUB to see if stones visible. 08/23/2021 KUB shows calcified stones left kidney with stent in position. As above, needs left ESWL after resolution of current issues. Subjective Subjective Date/Time Seen: 08/23/21 07:03 Comfortable, no complaints Review of Systems Cardiovascular: Cardiovascular: Denies chest pain, Denies lightheadedness, Denies palpitations and Denies dyspnea Respiratory: Respiratory: Denies dyspnea Gastrointestinal: Gastrointestinal: Denies diarrhea, Denies nausea and Denies vomiting Genitourinary: Genitourinary: Denies hematuria and Denies dysuria Endocrine: Endocrine: Denies palpitations Exam Const: General: no acute distress Resp: Effort & Inspection: normal respiratory effort GI: Inspection: non-distended GI Palp: No abdominal tenderness and No Guarding due to palpation present (GI) Auscultation: normal bowel sounds Objective Data Vital Signs Vital Signs: Vital Signs - 24 hr 08/22/21 07:22 08/22/21 09:02 08/22/21 09:00 Temperature 97.8 F Pulse Rate 94 100 100 Respiratory Rate 14 16 18 Blood Pressure 133/73 Pulse Oximetry 97 98 Oxygen Delivery Room Air 08/22/21 09:06 08/22/21 12:00 08/22/21 14:17 Temperature 98 F Pulse Rate 100 123 H 90 Respiratory Rate 18 16 18 Blood Pressure 135/82 Pulse Oximetry 98 Oxygen Delivery 08/22/21 16:00 08/22/21 08:00 08/22/21 12:00 Temperature 97.2 F L Pulse Rate 122 H Respiratory Rate 18 Blood Pressure 136/81 Pulse Oximetry 98 Oxygen Delivery Room Air Room Air 08/22/21 16:00 08/22/21 08:00 08/22/21 10:00 Temperature Pulse Rate 95 102 H Respiratory Rate Blood Pressure Pulse Oximetry Oxygen Delivery Room Air 08/22/21 12:00 08/22/21 14:00 08/22/21 16:00 Temperature Pulse Rate 113 H 92 118 H Respiratory Rate Blood Pressure Pulse Oximetry Oxygen Delivery 08/22/21 18:00 08/22/21 20:00 08/22/21 20:42 Temperature 97.6 F Pulse Rate 106 H 122 H 104 H Respiratory Rate 20 20 Blood Pressure 120/77 Pulse Oximetry 100 Oxygen Delivery 08/22/21 20:43 08/22/21 20:51 08/22/21 20:00 Temperature Pulse Rate 105 H 120 H Respiratory Rate 20 Blood Pressure Pulse Oximetry 97 Oxygen Delivery Room Air 08/22/21 22:00 08/22/21 20:00 08/22/21 23:44 Temperature 97.9 F Pulse Rate 128 H 128 H Respiratory Rate 20 Blood Pressure 149/86 H Pulse Oximetry 97 Oxygen Delivery Room Air 08/23/21 00:00 08/23/21 02:00 08/23/21 02:41 Temperature Pulse Rate 132 H 97 93 Respiratory Rate 20 Blood Pressure Pulse Oximetry Oxygen Delivery 08/23/21 02:51 08/23/21 04:00 08/23/21 04:00 Temperature Pulse Rate 102 H 124 H Respiratory Rate 20 Blood Pressure Pulse Oximetry Oxygen Delivery Room Air 08/23/21 04:00 08/23/21 06:00 Temperature 97.8 F Pulse Rate 115 H 113 H Respiratory Rate 18 Blood Pressure 128/70 Pulse Oximetry 95 Oxygen Delivery Intake/Output Intake/Output: Intake & Output 08/20/21 08/21/21 08/22/21 08/23/21 23:59 23:59 23:59 23:59 Intake Total 1830 2150 1120 100 Output Total 1725 1550 1800 550 Balance 105 600 -680 -450 Meds/Results Medications: Active Medications Generic Name Dose Route Start Last Admin Trade Name Freq PRN Reason Stop Dos
--- NOTE | 2021-08-23 08:45 | PM.PNNEP ---
Progress Note: A&P Additional Plan 1. Dasia has acute kidney injury. the patient had a creatinine of 1.6 on discharge in March. She may or may not have underlying chronic kidney disease. urine electrolytes are non pre renal urinalysis shows signs of infection CK is normal renal ultrasound is unremarkable CT abdomen noted The patient had hypotension and sepsis. Her blood pressure is okay. She is on Ceftriaxone. She is making more urine. her creatinine is Better today, down to 2.8 now. Continue supportive care. 2. The patient has history of kidney stones. There are stones there. No obstruction seen. 3. The patient has hypertension. Her blood pressure meds are on hold. BP is still doing fine. 4. The patient has a history of severe aortic stenosis. Supportive care. 5. The patient has COPD and sleep apnea. She is getting supportive care. 6. Her bicarbonate level is now 23. 7. Schizoaffective disorder. Getting supportive care. 8. The patient is anemic. Her hemoglobin is 9. On Epogen. check tomorrow. Subjective Date/time seen: 08/23/21 08:45 Interval history: patient is feeling okay. no sob or cp. she is eating okay Exam Narrative: WDWN in NAD skin no rash or subcu nodules head ncat lungs clear to ausc cor reg no rub abd BS+ nontender and soft ext trace edema and no cyanosis.. Objective Data Vital Signs Vital Signs: Vital Signs - 24 hr 08/22/21 18:00 08/22/21 20:00 08/22/21 20:42 Temperature 36.4 C Pulse Rate 106 H 122 H 104 H Respiratory Rate 20 20 Blood Pressure 120/77 Pulse Oximetry 100 Oxygen Delivery 08/22/21 20:43 08/22/21 20:51 08/22/21 20:00 Temperature Pulse Rate 105 H 120 H Respiratory Rate 20 Blood Pressure Pulse Oximetry 97 Oxygen Delivery Room Air 08/22/21 22:00 08/22/21 20:00 08/22/21 23:44 Temperature 36.6 C Pulse Rate 128 H 128 H Respiratory Rate 20 Blood Pressure 149/86 H Pulse Oximetry 97 Oxygen Delivery Room Air 08/23/21 00:00 08/23/21 02:00 08/23/21 02:41 Temperature Pulse Rate 132 H 97 93 Respiratory Rate 20 Blood Pressure Pulse Oximetry Oxygen Delivery 08/23/21 02:51 08/23/21 04:00 08/23/21 04:00 Temperature Pulse Rate 102 H 124 H Respiratory Rate 20 Blood Pressure Pulse Oximetry Oxygen Delivery Room Air 08/23/21 04:00 08/23/21 06:00 08/23/21 07:34 Temperature 36.6 C 35.6 C L Pulse Rate 115 H 113 H 126 H Respiratory Rate 18 16 Blood Pressure 128/70 122/81 Pulse Oximetry 95 96 Oxygen Delivery 08/23/21 08:20 08/23/21 08:21 08/23/21 08:29 Temperature Pulse Rate 98 109 H Respiratory Rate 20 20 Blood Pressure Pulse Oximetry 97 Oxygen Delivery Room Air 08/23/21 10:27 08/23/21 08:00 08/23/21 08:00 Temperature Pulse Rate 102 H 115 H Respiratory Rate Blood Pressure Pulse Oximetry Oxygen Delivery Room Air 08/23/21 10:00 08/23/21 11:59 08/23/21 12:00 Temperature 35.6 C L Pulse Rate 104 H 102 H Respiratory Rate 22 H Blood Pressure 125/77 Pulse Oximetry 100 Oxygen Delivery Room Air 08/23/21 12:00 08/23/21 14:07 08/23/21 14:00 Temperature Pulse Rate 92 99 90 Respiratory Rate 20 Blood Pressure Pulse Oximetry Oxygen Delivery 08/23/21 15:56 08/23/21 16:00 Temperature 36.4 C Pulse Rate 90 107 H Respiratory Rate 22 H Blood Pressure 125/69 Pulse Oximetry 98 Oxygen Delivery Intake/Output Intake/Output: Intake & Output 08/20/21 08/21/21 08/22/21 08/23/21 23:59 23:59 23:59 23:59 Intake Total 1830 2150 1120 100 Output Total 1725 1550 1800 550 Balance 105 600 -680 -450 Meds/Results Medications: Active Medications Generic Name Dose Route Start Last Admin Trade Name Freq PRN Reason Stop Dose Admin Acetaminophen 500 mg 08/18/21 05:11 08/22/21 21:18 Acetaminophen 500 Mg Tablet PO 500 mg BID PRN Administration Pa
[2021-08-23] MEDS: PANTOPRAZOLE SODIUM IV 40 MG VIAL IV PUSH ×2 (08:53→22:07)
[2021-08-23] MEDS: EPOETIN ALFA-EPBX 10,000 UNITS/ML VIAL 10000 UNITS IV PUSH (08:53)
[2021-08-23] MEDS: cefTRIAXone 2 GM in SODIUM CHLORIDE 0.9% IV 100 ML 200 ML IVPB (08:54)
[2021-08-23] MEDS: OMEGA 3 POLYUNSAT FATTY ACIDS 1 GM CAP PO (08:54)
[2021-08-23] MEDS: FOLIC ACID 1 MG TABLET PO (08:54)
[2021-08-23] MEDS: SODIUM BICARBONATE TAB 650 MG TABLET 1300 MG PO ×2 (08:54→16:50)
[2021-08-23] MEDS: MULTIVITAMINS /C LUTEIN (CENTRUM SILVER) TABLET *BKC 1 TAB PO (08:54)
[2021-08-23] MEDS: DULoxetine HCL 60 MG CAPSULE.DR PO (08:54)
[2021-08-23] MEDS: FERROUS SULFATE 324 MG TABLET PO (08:54)
[2021-08-23] MEDS: TOLNAFTATE 1% POWDER 45 GM BTL 1 APPLIC TOPICAL ×2 (08:55→22:07)
[2021-08-23] MEDS: polyethylene glycoL 3350 17 GM POWD.PACK PO ×2 (08:55→16:50)
--- NOTE | 2021-08-23 08:59 | PM.IMPN ---
Progress Note: A&P Assessment and Plan (1) Septic shock: Code(s): A41.9 - Sepsis, unspecified organism; R65.21 - Severe sepsis with septic shock Status: Acute Assessment and Plan: Patient presented with nausea, vomiting with coffee-ground emesis and found to be hypotensive. Was in septic shock in the ER, likely secondary UTI with bacteremia. -patient received IV fluids in the ER and in the ICU -lactic acid was increased -right IJ central line placed emergently as her systolic blood pressures were in the 50s and 60s -she was on Bertram-Synephrine via peripheral access until central line placed -she was successfully weaned off Bertram-Synephrine as we maintained a MAP > 70 mmHg for adequate end organ perfusion -patient also had acute kidney injury -treated with Zosyn (08/18- 08/20) and Vanco 08/18 (once). -UCx negative. BCx (2of2) growing EColi that is pansensitive. Changed to Rocephin 2gm daily on 08/20 -Will need removal of central line prior to discharge -Overall clinically improved. Will need at least 7 days of IV ceftriaxone at 2 g IV daily -08/23 Clinically stable and will continue ceftriaxone 2g IV day 4 -Discussed with nursing about removing central line, but nursing reporting patient may be difficult access and removes lines (2) Acute UTI: Code(s): N39.0 - Urinary tract infection, site not specified Status: Acute Assessment and Plan: Urine analysis reflective of UTI -urine cultures are negative. -BCx growing EColi. -suspect urinary source for the bacteremia; CT showing no evidence of colitis or cholecystitis -still has left ureteral stent in place from March (3) Acute upper gastrointestinal hemorrhage: Code(s): K92.2 - Gastrointestinal hemorrhage, unspecified Status: Acute Assessment and Plan: Coffee-ground emesis noted at the senior care but no episodes noted in the ICU. RUQ US shows cirrhosis. -GI was consulted but has not seen the patient yet -continue Protonix IV q.12 hours -20 H/H stable today -08/23 no evidence of bleeding. Will recheck CBC tomorrow. (4) Acute renal failure: Qualifiers: Acute renal failure type: unspecified Qualified Code(s): N17.9 - Acute kidney failure, unspecified Code(s): N17.9 - Acute kidney failure, unspecified Status: Acute Assessment and Plan: Acute renal failure likely related to hypovolemia, septic shock and ATN -patient received IV fluids in the ER and ICU -baseline Cr normal in 2019. MANISHA noted in March 2021 and Cr improved to 1.6. -Cr 3.4 on admission and has not changed significantly. -IV fluids have been stopped -renal ultrasound unremarkable -CT scan showing bilateral nonobstructing kidney stones and left ureteral stent -nephrology has been consulted and appreciate their input -continue to monitor renal function urine output and electrolytes -urology consult -check Echo to assess aortic stenosis. -08/22 echo being completed this morning during exam. Creatinine down to 3.00 today. Will continue to avoid nephrotoxic agents and renally dose medication. Appreciate recommendations from Nephrology -08/23 Creatinine down to 2.8. Will continue to monitor. Appreciate recommendations from Nephrology (5) ANNE and COPD overlap syndrome: Code(s): G47.33 - Obstructive sleep apnea (adult) (pediatric); J44.9 - Chronic obstructive pulmonary disease, unspecified Status: Acute Assessment and Plan: Patient with mild wheezing. Continue bronchodilators. Hold on steroids. Resume noninvasive ventilation as auto titrate. 08/23 This has improved. Will change nebs to PRN. (6) Hypertension: Qualifiers: Hypertension type: essential hypertension Qualified Code(s): I10 - Essential (primary) hypertension Code(s): I10 - Essential (primary) hypertension Status: Acute Assessment and Plan: On carvedilol at home. This has been held due to acute illness. HR garza
[2021-08-23 09:26] LABS: Anion Gap 7 mmol/L (8-16); Blood Urea Nitrogen 47 mg/dL (7-17); Calcium 8.3 mg/dL (8.4-10.2); Carbon Dioxide 23 mmol/L (22-30); Chloride 109 mmol/L (98-107); Estimated CRCL calculation 16 ml/min; Estimated Glomerular Filt Rate 16; Glucose 98 mg/dL (65-110); Potassium 3.6 mmol/L (3.4-5.0); Sodium 139 mmol/L (137-145)
[2021-08-23] MEDS: HEPARIN SODIUM 5,000 UNITS/ML VIAL 5000 UNITS SUB-Q ×2 (10:27→22:06)
[2021-08-23] MEDS: carvediloL 3.125 MG TABLET PO ×2 (10:27→22:06)
[2021-08-23 14:47] LABS: Chloride Rand Ur 57 mmol/L (32-290); Chloride/Creatinine Rand Ur 75 (38-318); Creatinine Random Urine 76 mg/dL (20-275)
[2021-08-23] MEDS: hydrOXYzine HCL 25 MG TABLET 50 MG PO (22:11)
[2021-08-24] VITALS (14 sets, daily range): BP systolic 118–140; BP diastolic 63–84; PULSE 87–116; RESP 14–20; TEMP 36–36.8; O2SAT 96–99
[2021-08-24 06:35] LABS: Hematocrit 27.8 % (37.0-47.0); Hemoglobin 9.1 g/dL (12.0-15.0); Mean Corpuscular HGB Conc 32.7 g/dl (32-36); Mean Corpuscular Hemoglobin 28.3 pg (26-34); Mean Corpuscular Volume 86.6 fl (80-100); Platelet Count Result 247 k/mm3 (150-375); Red Blood Count 3.21 M/mm3 (4.2-5.4); Red Cell Distribution Width 16.2 % (11.5-14.5); White Blood Count 10.3 K/mm3 (4.5-10.0)
[2021-08-24 06:46] LABS: Anion Gap 5 mmol/L (8-16); Blood Urea Nitrogen 46 mg/dL (7-17); Calcium 8.1 mg/dL (8.4-10.2); Carbon Dioxide 25 mmol/L (22-30); Chloride 106 mmol/L (98-107); Estimated CRCL calculation 18 ml/min; Estimated Glomerular Filt Rate 19; Glucose 86 mg/dL (65-110); Potassium 3.4 mmol/L (3.4-5.0); Sodium 136 mmol/L (137-145)
[2021-08-24] MEDS: MULTIVITAMINS /C LUTEIN (CENTRUM SILVER) TABLET *BKC 1 TAB PO (10:45)
[2021-08-24] MEDS: SODIUM BICARBONATE TAB 650 MG TABLET 1300 MG PO (10:45)
[2021-08-24] MEDS: carvediloL 3.125 MG TABLET PO (10:45)
[2021-08-24] MEDS: FOLIC ACID 1 MG TABLET PO (10:46)
[2021-08-24] MEDS: FERROUS SULFATE 324 MG TABLET PO (10:46)
[2021-08-24] MEDS: cefTRIAXone 2 GM in SODIUM CHLORIDE 0.9% IV 100 ML 200 ML IVPB (10:47)
[2021-08-24] MEDS: DULoxetine HCL 60 MG CAPSULE.DR PO (10:48)
[2021-08-24] MEDS: HEPARIN SODIUM 5,000 UNITS/ML VIAL 5000 UNITS SUB-Q (10:48)
[2021-08-24] MEDS: OMEGA 3 POLYUNSAT FATTY ACIDS 1 GM CAP PO (10:48)
[2021-08-24] MEDS: TOLNAFTATE 1% POWDER 45 GM BTL 1 APPLIC TOPICAL (10:48)
[2021-08-24] MEDS: PANTOPRAZOLE SODIUM IV 40 MG VIAL IV PUSH (10:48)
[2021-08-24] MEDS: polyethylene glycoL 3350 17 GM POWD.PACK PO (10:50)
[2021-08-24] MEDS: CENTRAL LINE FLUSH 10 ML IV PUSH ×2 (11:03→14:06)
--- NOTE | 2021-08-24 12:41 | PCNFU ---
Nutrition Follow-Up Complete: Increased Protein needs as related to wounds as evidenced by pressure ulcers reported Goal: Meet estimated nutritional needs - pt is not meeting goal, continue current goal. Pt current nutrition is Regular. Last recorded weight is 99 kg, up 6.3kg from 08/18/2021. Bowel Motility: +BM 08/23/2021 Labs Reviewed: Hgb 9.1, Hct 27.8, Alb 3.0, Na 136, GFR 19, BUN 46, Cr 2.5 Meds Noted: Protonix, Xopenex, Zofran, ferrous sulfate, Cymbalta, Atrovent Skin: Coccyx Pressure Ulcer Stage III Additional Notes: Pt is refusing meals and current oral intake is 25%. Nurse reports pt is eating good when she isn't refusing meals and that pt is finishing supplements Marquez BID (90kcal, 2.5gm pro each) and Ensure Compact (220kcal, 9gm pro each). Will monitor every 5 days.
--- NOTE | 2021-08-24 13:24 | PCNSR ---
On 08/24/21, the student, Jasmina Banks, provided care and completed [facility] documentation on this patient. I have reviewed the student's documentation and agree with the findings.
--- NOTE | 2021-08-24 16:04 | PM.DS ---
DS: Admitting Diagnosis Discharge Date 08/24/21 Admitting Diagnosis Urinary Tract Infection DS: Discharge Diagnosis Discharge Diagnosis (1) Septic shock: Code(s): A41.9 - Sepsis, unspecified organism; R65.21 - Severe sepsis with septic shock Status: Acute Assessment and Plan: Patient presented with nausea, vomiting with coffee-ground emesis and found to be hypotensive. Was in septic shock in the ER, likely secondary UTI with bacteremia. -patient received IV fluids in the ER and in the ICU -lactic acid was increased -right IJ central line placed emergently as her systolic blood pressures were in the 50s and 60s -she was on Bertram-Synephrine via peripheral access until central line placed -she was successfully weaned off Bertram-Synephrine as we maintained a MAP > 70 mmHg for adequate end organ perfusion -patient also had acute kidney injury -treated with Zosyn (08/18- 08/20) and Vanco 08/18 (once). -UCx negative. BCx (2of2) growing EColi that is pansensitive. Changed to Rocephin 2gm daily on 08/20 -Will need removal of central line prior to discharge -Overall clinically improved. Will need at least 7 days of IV ceftriaxone at 2 g IV daily -08/23 Clinically stable and will continue ceftriaxone 2g IV day 4 -Discussed with nursing about removing central line, but nursing reporting patient may be difficult access and removes lines -08/24 Patient clinically improved and appropriate for discharge back to halfway. (2) Acute UTI: Code(s): N39.0 - Urinary tract infection, site not specified Status: Acute Assessment and Plan: Urine analysis reflective of UTI -urine cultures are negative. -BCx growing EColi. -suspect urinary source for the bacteremia; CT showing no evidence of colitis or cholecystitis -still has left ureteral stent in place from March (3) Acute upper gastrointestinal hemorrhage: Code(s): K92.2 - Gastrointestinal hemorrhage, unspecified Status: Acute Assessment and Plan: Coffee-ground emesis noted at the halfway but no episodes noted in the ICU. RUQ US shows cirrhosis. -GI was consulted but has not seen the patient yet -continue Protonix IV q.12 hours -20 H/H stable today -08/23 no evidence of bleeding. Will recheck CBC tomorrow. -08/24 - CBC stable this morning. No evidence of bleeding. (4) Acute renal failure: Qualifiers: Acute renal failure type: unspecified Qualified Code(s): N17.9 - Acute kidney failure, unspecified Code(s): N17.9 - Acute kidney failure, unspecified Status: Acute Assessment and Plan: Acute renal failure likely related to hypovolemia, septic shock and ATN -patient received IV fluids in the ER and ICU -baseline Cr normal in 2019. MANISHA noted in March 2021 and Cr improved to 1.6. -Cr 3.4 on admission and has not changed significantly. -IV fluids have been stopped -renal ultrasound unremarkable -CT scan showing bilateral nonobstructing kidney stones and left ureteral stent -nephrology has been consulted and appreciate their input -continue to monitor renal function urine output and electrolytes -urology consult -check Echo to assess aortic stenosis. -08/22 echo being completed this morning during exam. Creatinine down to 3.00 today. Will continue to avoid nephrotoxic agents and renally dose medication. Appreciate recommendations from Nephrology -08/23 Creatinine down to 2.8. Will continue to monitor. Appreciate recommendations from Nephrology. -08/24 Creatinine down to 2.5. Nephrology recommends recheck of BMP on Saturday 08/26 and Sunday, 08/29 and says patient can be discharged today. (5) ANNE and COPD overlap syndrome: Code(s): G47.33 - Obstructive sleep apnea (adult) (pediatric); J44.9 - Chronic obstructive pulmonary disease, unspecified Status: Acute Assessment and Plan: Patient with mild wheezing. Continue bronchodilators. Hold on steroids. Resume noninvasive ventilation as au
--- NOTE | 2021-08-24 16:28 | PM.PNNEP ---
Progress Note: A&P Additional Plan 1. Dasia has acute kidney injury. the patient had a creatinine of 1.6 on discharge in March. She may or may not have underlying chronic kidney disease. urine electrolytes are non pre renal urinalysis shows signs of infection CK is normal renal ultrasound is unremarkable CT abdomen noted The patient had hypotension and sepsis. Her blood pressure is okay now. She is on Ceftriaxone. She is making more urine. her creatinine is Better today, down to 2.5 today. Since her creatinine is trending downwards I think that patient could be discharged from the kidney standpoint. 2. The patient has history of kidney stones. There are stones there. No obstruction seen. 3. The patient has hypertension. Her blood pressure meds are on hold. BP is running in the 130s. 4. The patient has a history of severe aortic stenosis. Supportive care. 5. The patient has COPD and sleep apnea. She is getting supportive care. 6. Her bicarbonate level is now 25. 7. Schizoaffective disorder. Getting supportive care. 8. The patient is anemic. Her hemoglobin is 9. On Epogen. check tomorrow. Subjective Date/time seen: 08/24/21 16:28 Interval history: patient is feeling okay. no sob or cp. she is eating okay Eager for discharge Exam Narrative: WDWN in NAD skin no rash or subcu nodules head ncat lungs clear bilaterally cor reg no rub abd BS+ nontender ext trace edema and no cyanosis.. Objective Data Vital Signs Vital Signs: Vital Signs - 24 hr 08/23/21 18:00 08/23/21 20:00 08/23/21 21:57 Temperature 37.1 C Pulse Rate 126 H 112 H 110 H Respiratory Rate 22 H 20 Blood Pressure 136/72 Pulse Oximetry 97 97 Oxygen Delivery Room Air Fraction of Inspired Oxygen 21 08/23/21 22:06 08/24/21 00:00 08/23/21 20:00 Temperature 36.3 C L Pulse Rate 94 116 H 93 Respiratory Rate 20 Blood Pressure 135/84 Pulse Oximetry 97 Oxygen Delivery Fraction of Inspired Oxygen 08/23/21 22:00 08/24/21 00:00 08/23/21 20:00 Temperature Pulse Rate 103 H 108 H Respiratory Rate Blood Pressure Pulse Oximetry Oxygen Delivery Room Air Fraction of Inspired Oxygen 08/24/21 00:00 08/24/21 02:00 08/24/21 04:00 Temperature Pulse Rate 104 H 115 H Respiratory Rate Blood Pressure Pulse Oximetry Oxygen Delivery Room Air Fraction of Inspired Oxygen 08/24/21 04:00 08/24/21 04:00 08/24/21 06:00 Temperature 36.8 C Pulse Rate 95 111 H Respiratory Rate 14 Blood Pressure 118/71 Pulse Oximetry 98 Oxygen Delivery Room Air Fraction of Inspired Oxygen 08/24/21 08:08 08/24/21 10:45 08/24/21 12:16 Temperature 36.5 C 36.0 C L Pulse Rate 96 111 H 91 Respiratory Rate 20 20 Blood Pressure 135/63 140/69 Pulse Oximetry 98 99 Oxygen Delivery Fraction of Inspired Oxygen 08/24/21 08:45 08/24/21 10:00 08/24/21 12:45 Temperature Pulse Rate 110 H 100 99 Respiratory Rate Blood Pressure Pulse Oximetry Oxygen Delivery Fraction of Inspired Oxygen Intake/Output Intake/Output: Intake & Output 08/21/21 08/22/21 08/23/21 08/24/21 23:59 23:59 23:59 23:59 Intake Total 2150 3176 983 7269 Output Total 1550 1800 1900 1000 Balance 600 680 -1580 0 Meds/Results Medications: Active Medications Generic Name Dose Route Start Last Admin Trade Name Donnellq PRN Reason Stop Dose Admin Acetaminophen 500 mg 08/18/21 05:11 08/22/21 21:18 Acetaminophen 500 Mg Tablet PO 500 mg BID PRN Administration Pain Rated 1-3 Ascorbic Acid 500 mg 08/18/21 09:00 Ascorbic Acid 500 Mg Tablet PO DAILY [facility] Calcium Carbonate 500 mg 08/18/21 09:00 Calcium/Vitamin D 500 Mg Tablet PO BID REGINA Carvedilol 3.125 mg 08/23/21 09:00 08/24/21 10:45 Carvedilol 3.125 Mg Tablet PO 3.125 mg Q12HR REGINA Administration Duloxetine HCl 60 mg 08/18/21 09:00 0
[2021-08-24 17:21] LABS: EDCOVIDSCREEN Negative (Negative)
--- NOTE | 2021-08-24 19:37 | PC.NURSE ---
1654 Orders to discharge to [facility]- report given - ambulance called
--- NOTE | 2021-08-24 19:51 | PC.NURSE ---
[facility] her to transport pt [facility]-
== END 2021-08-24 19:15 | DRG 872 ==
LOC: ANHED 21:29 → ANHICU 08-18 02:22 → ANHIMU 08-23 09:27 → ANHICU 08-25 10:54 → ANHIMU 08-25 10:54
PROVIDERS: Internal Medicine; Internal Medicine Nephrology; Admitting Provider Internal Medicine; Emergency Provider Family Medicine; PCP Internal Medicine; Visit Provider Family Medicine
DX: A41.51 Sepsis due to Escherichia coli [E. coli] (principal); N39.0 Urinary tract infection, site not specified; K92.2 Gastrointestinal hemorrhage, unspecified; Z20.822 Contact with and (suspected) exposure to COVID-19; R91.1 Solitary pulmonary nodule; I10 Essential (primary) hypertension; M19.90 Unspecified osteoarthritis, unspecified site; D50.9 Iron deficiency anemia, unspecified; F25.9 Schizoaffective disorder, unspecified; I11.0 Hypertensive heart disease with heart failure; I50.9 Heart failure, unspecified; F32.9 Major depressive disorder, single episode, unspecified; J44.9 Chronic obstructive pulmonary disease, unspecified; G47.33 Obstructive sleep apnea (adult) (pediatric); D72.823 Leukemoid reaction; E03.9 Hypothyroidism, unspecified; I35.0 Nonrheumatic aortic (valve) stenosis; K74.60 Unspecified cirrhosis of liver; D72.829 Elevated white blood cell count, unspecified; N20.0 Calculus of kidney; E66.9 Obesity, unspecified; Z68.39 Body mass index [BMI] 39.0-39.9, adult; Z87.442 Personal history of urinary calculi; Z90.710 Acquired absence of both cervix and uterus; Z87.891 Personal history of nicotine dependence; Z66 Do not resuscitate
CPT/HCPCS: 36415; 36556; 51702; 71250; 74018; 74176; 76705; 76775; 80048; 80053; 80069; 81001; 82140; 82274; 82436; 82533; 82550; 82570; 83605; 83735; 84100; 84133; 84300; 85025; 85027; 85610; 85730; 85999; 86850; 86900; 86901; 87040; 87077; 87086; 87088; 87186; 87426; 93306; 94640; 96361; 96374; 96375; 99285; A9270; C1751; C9113; C9803; J0131; J0696; J1644; J2370; J2405; J2543; J3370; J3475; J7030; J7040; J7060; Q5105

== ENCOUNTER 2021-10-14 00:30 | Day surgery (SDC) | payer MEDICARE, SELFPAY ==
[2021-09-23 13:56] VITALS: BMI 47.0
--- NOTE | 2021-09-26 09:15 | PC.NURSE ---
Report to the Outpatient Waiting Room, entrance under the green pavilion located off [facility], at time _0630 on date ___09/30/21____. OR Time: . - You and your visitor will be asked a series of questions to screen for COVID 19 for your protection. - Only one visitor is allowed at this time. - The patient visitor is requested to leave or wait in car when not with patient. - A mask is required within the hospital. Patients may have clear liquids (water, carbonated beverages, clear teas, apple juice) until 3 hours prior to surgery with a maximum of 20 ounces. - No food from midnight until time of surgery - Infants may have breast milk until 4 hours before surgery, infant formula 6 hours prior to surgery. - Children will be allowed to drink immediately following surgery. If applicable, please bring a bottle or sippy cup to assist with drinking. Juice, water, soda, and popsicles are readily available. For infants on formula, please bring formula the day of surgery. Pacifiers are allowed. Take the following medications with a SIP of water the morning of surgery: ___CARVEDILOL,DULOXETINE, Medications to discontinue per physician ____ALL VITAMINS AND SUPPLEMENTS 3 DAYS PRE OP Date to take last dose__09/26/21 Please no make-up, nail slovenian, hairspray, perfume, deodorant, or body powder the day of surgery. No jewelry (including any body piercings) or valuables the day of surgery, leave them at home. Please take a shower or bath the night before, or the morning of, surgery with an antibacterial soap. Wear comfortable, loose fitting clothing. Children are encouraged to wear pajamas. - Jewelry must be removed prior to entering the operating room. Rings and piercings that are not removed may be cut off. - The hospital will not accept responsibility for valuables. - Please leave all valuables, including medications, at home the day of surgery. If you are going home after surgery, a licensed intermodal truck driver must drive you home. - NO public transportation without another adult. - We recommend that an adult stay with you for 24 hours following discharge. - We also recommend that you do not drive, make important decision, drink alcoholic beverages, or take any drugs that were not prescribed by your health care provider for at least 24 hours after your discharge time. For Pediatric surgeries, we recommend two adults accompany the child home (only one inside the building at this time). Follow any additional instructions given to you from your surgeon. If you or anyone in your household have experienced Covid symptoms in the past week, please notify your surgeon or the nurse liaison at the phone number below for possible testing. FAXED TO [facility] instructions given to JEANE PUENTES and asked if any additional questions and then verbalized understanding. Patient advised to call surgeon office or pre surgery nurse liaison [phone] if any additional questions.
--- NOTE | 2021-09-28 11:23 | PM.HPGS ---
History of Present Illness History of Present Illness Consent: Risks, benefits, and alternatives have been discussed and questions answered. Patient agrees to proceed with procedure. Chief complaint: Aristeo Renal Kidney Stones Narrative: Dasia Hernandez is a 80 year old female was originally seen by our practice in March 2021 when she presented with acute renal failure with an obstructing 7 x 6 mm left proximal ureteral stone with moderate hydronephrosis. My partner, Dr. Gi Mcmullen, placed a left ureteral stent. After medical clearance the patient now presents for definitive left ESWL. She is aware the risk of this procedure including, but not limited to, adverse cardiopulmonary events, persistent stone fragments that require additional procedures, hematuria and perinephric hematoma. Review of Systems Cardiovascular: Cardiovascular: Denies chest pain, Denies lightheadedness, Denies palpitations and Denies dyspnea Respiratory: Respiratory: Denies dyspnea Gastrointestinal: Gastrointestinal: Denies diarrhea, Denies nausea and Denies vomiting Genitourinary: Genitourinary: Denies hematuria and Denies dysuria Endocrine: Endocrine: Denies palpitations PMFSH Past Medical History Medical History Aortic stenosis Reportedly she has severe aortic stenosis and is followed by a security engineer in [place]. Apparently she has been deemed not a surgical candidate at this time due to her other medical conditions. Brain aneurysm Chronic obstructive pulmonary disease Congestive heart failure Depression with anxiety Hypertension Hypothyroidism Iron deficiency anemia Morbid obesity ANNE and COPD overlap syndrome Surgical History Surgical History History of craniotomy Either for an aneurysm or AVM, was difficult to understand what she was saying. History of hysterectomy Family History Family History Father Acute myocardial infarction Social History Social History Social History: The patient lives at [facility] in [place]. 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 She used to ?smoke a lot? and quit several years ago. She denies alcohol and illicit substance use. Her son, Bal Hernandez, is her surrogate decision maker. She wishes to be a full code. Smoking packs per day: 1 Smoking cigarettes per day: 20.0 Years smoked: 10 Smoking pack-years: 10.00 Smoking status: Former smoker Tobacco type: cigarettes Smoking end date: 03/05/79 Substance use type: unknown Living arrangements: senior living Gender identity (if verbalized by the patient): Female Sexual Orientation (if Verbalized by the Patient): Straight or Heterosexual Spiritual care concerns: No Meds Home Medications and Allergies Home Medications Medication Instructions Recorded Confirmed Type calcium carbonate 600 mg-vitamin 1 tablet PO BID 09/02/19 09/26/21 History D3 20 mcg (800 unit) chewable tablet (Caltrate 600 plus D) duloxetine 30 mg capsule,delayed 60 mg PO DAILY 09/02/19 09/26/21 History release glucosamine-chondroitin 250 mg-200 1 tablet PO DAILY 09/02/19 09/26/21 History mg tablet (Osteo Bi-Flex) multivit with minerals-iron 18 1 tablet PO DAILY ##0 09/02/19 09/26/21 History mg-folic ac 400 mcg-vit K 25 mcg tablet (Adults Multivitamin) carvedilol 6.25 mg tablet (Coreg) 6.25 mg PO Q12HR 30 days #60 tabs 09/09/19 09/26/21 Rx acetaminophen 500 mg tablet 500 mg PO BID PRN Pain 03/30/21 09/26/21 History ascorbic acid (vitamin C) 500 mg 500 mg PO DAILY 03/30/21 09/26/21 History tablet ferrous sulfate 325 mg (65 mg 325 mg PO DAILY 03/30/21 09/26/21 History iron) tablet folic acid 1 mg tablet 1 mg PO DAILY 03/30/21 09/26/21 History hydroxyzine HCl 50 mg tablet 50 mg PO HS ITC
--- NOTE | 2021-10-03 15:15 | PC.NURSE ---
PRE-OP INSTRUCTIONS, PLEASE READ CAREFULLY Report to the Outpatient Waiting Room, entrance under the green pavilion located off [facility], at time _0830_ on date _10/14/21_. OR Time: _1030_. - You and your visitor will be asked a series of questions to screen for COVID 19 for your protection. - Only one visitor is allowed at this time. - The patient visitor is requested to leave or wait in car when not with patient. - A mask is required within the hospital. Patients may have clear liquids (water, carbonated beverages, clear teas, apple juice) until 3 hours prior to surgery (0730 AM) with a maximum of 20 ounces. - No food from midnight until time of surgery Take the following medications with a SIP of water the morning of surgery: _CARVEDILOL, DULOXETINE_ Medications to discontinue per ANESTHESIA - _ALL VITAMINS AND SUPPLEMENTS 3 DAYS PRIOR TO SURGERY, Date to take last dose 10/10/21_ Please no make-up, nail turkish, hairspray, perfume, deodorant, or body powder the day of surgery. No jewelry (including any body piercings) or valuables the day of surgery, leave them at home. Please take a shower or bath the night before, or the morning of, surgery with an antibacterial soap. Wear comfortable, loose fitting clothing. - Jewelry must be removed prior to entering the operating room. Rings and piercings that are not removed may be cut off. - The hospital will not accept responsibility for valuables. - Please leave all valuables, including medications, at home the day of surgery. If you are going home after surgery, a licensed restaurant delivery driver must drive you home. - NO public transportation without another adult. - We recommend that an adult stay with you for 24 hours following discharge. - We also recommend that you do not drive, make important decision, drink alcoholic beverages, or take any drugs that were not prescribed by your health care provider for at least 24 hours after your discharge time. Follow any additional instructions given to you from your surgeon. If you or anyone in your household have experienced Covid symptoms in the past week, please notify your surgeon or the nurse liaison at the phone number below for possible testing. Instructions FAXED to _[facility]and asked if any additional questions and then verbalized understanding. Patient advised to call surgeon office or pre surgery nurse liaison [phone] if any additional questions.
[2021-10-14] VITALS (7 sets, daily range): BP systolic 85–143; BP diastolic 42–99; PULSE 79–85; RESP 11–20; TEMP 36.3; O2SAT 96–100
--- NOTE | ~2021-10-14 | XR_ITS ---
EXAMINATION: XR abdomen/kub 1V DATE: 10/14/2021 08:53 INDICATION: Kidney stone. TECHNIQUE: A supine view of the abdomen on 2 radiographs was obtained. COMPARISON: CT abdomen and pelvis 08/18/2021 FINDINGS: There are no dilated loops of bowel. There is a left internal ureteral stent in expected po sition. The kidneys are obscured by bowel. There are clusters of ill-defined stones in the right kidn ey and right renal pelvis. IMPRESSION: 1. Clusters of ill-defined stones in the right kidney and right renal pelvis. 2. Left internal ureteral stent in expected position. Reviewed, dictated and finalized at location A.
--- NOTE | 2021-10-14 06:59 | WPDHPUPDATE1 ---
History and Physical Update Update Date/Time: 10/14/21 06:59 History and Physical has been reviewed, including an updated exam of the patient. There are NO changes in the patient's condition. Risks, benefits, and alternatives have been discussed and questions answered. Patient agrees to proceed with procedure.
[2021-10-14] MEDS: LACTATED RINGERS 1,000 ML 30 ML IV CONT (09:00)
--- NOTE | 2021-10-14 09:42 | WPDANESEPPF ---
Anes - Initial Pre Proc Eval Procedure: Operation Date: 10/14/21 10:30 Proposed Procedures p Right Extracorporeal Shock Wave Lithotripsy - Richard Camargo MD s Cystoscopy with Right Stent Placement, Left Stent Removal - Richard Camargo MD Date/Time: 10/14/21 09:42 Surgeon: Richard Camargo MD Pre Op Diagnosis: Aristeo Renal Kidney Stones Patient Data Age: 80 Gender: F Height: 1.42 m Weight: 95.25 kg Allergies Allergy/AdvReac Type Severity Reaction Status Date / Time pregabalin [From Lyrica] Allergy Unknown Verified 09/23/21 13:37 Sulfa (Sulfonamide Allergy Unknown Verified 09/23/21 13:37 Antibiotics) phenytoin [From Dilantin] AdvReac Unknown Verified 09/23/21 13:37 Home Medications Medication Instructions Recorded Confirmed Type calcium carbonate 600 mg-vitamin 1 tablet PO BID 09/02/19 09/26/21 History D3 20 mcg (800 unit) chewable tablet (Caltrate 600 plus D) duloxetine 30 mg capsule,delayed 60 mg PO DAILY 09/02/19 09/26/21 History release glucosamine-chondroitin 250 mg-200 1 tablet PO DAILY 09/02/19 09/26/21 History mg tablet (Osteo Bi-Flex) multivit with minerals-iron 18 1 tablet PO DAILY ##0 09/02/19 09/26/21 History mg-folic ac 400 mcg-vit K 25 mcg tablet (Adults Multivitamin) carvedilol 6.25 mg tablet (Coreg) 6.25 mg PO Q12HR 30 days #60 tabs 09/09/19 09/26/21 Rx acetaminophen 500 mg tablet 500 mg PO BID PRN Pain 03/30/21 09/26/21 History ascorbic acid (vitamin C) 500 mg 500 mg PO DAILY 03/30/21 09/26/21 History tablet ferrous sulfate 325 mg (65 mg 325 mg PO DAILY 03/30/21 09/26/21 History iron) tablet folic acid 1 mg tablet 1 mg PO DAILY 03/30/21 09/26/21 History hydroxyzine HCl 50 mg tablet 50 mg PO HS ITCHING 03/30/21 09/26/21 History omega 6-fgv-mom-fish oil 300 1 cap PO DAILY 03/30/21 09/26/21 History mg-1,000 mg capsule,delayed release (Fish Oil) quetiapine 25 mg tablet 25 mg PO HS 03/30/21 09/26/21 History polyethylene glycol 3350 17 17 g PO BID #0 grams 04/01/21 09/26/21 Rx gram/dose oral powder (Miralax) tramadol 50 mg tablet 50 mg PO Q12H PRN Breakthrough Pain 08/18/21 09/26/21 History Patient hx anesthesia problems: none Family hx anesthesia problems: none Results Review: All pre-operative results and documents have been reviewed as part of the pre-operative evaluation. [facility] Past Medical History Medical History Aortic stenosis Reportedly she has severe aortic stenosis and is followed by a polytechnic registrar in [place]. Apparently she has been deemed not a surgical candidate at this time due to her other medical conditions. Brain aneurysm Chronic obstructive pulmonary disease Congestive heart failure Depression with anxiety Hypertension Hypothyroidism Iron deficiency anemia Morbid obesity ANNE and COPD overlap syndrome Surgical History Surgical History History of craniotomy Either for an aneurysm or AVM, was difficult to understand what she was saying. History of hysterectomy Family History Family History Father Acute myocardial infarction Social History Social History Social History: The patient lives at [facility] in [place]. 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 She used to ?smoke a lot? and quit several years ago. She denies alcohol and illicit substance use. Her son, Bal Hernandez, is her surrogate decision maker. She wishes to be a full code. Smoking packs per day: 1 Smoking cigarettes per day: 20.0 Years smoked: 10 Smoking pack-years: 10.00 Smoking status: Former smoker Tobacco type: cigarettes Smoking end date: 03/05/79 Substance use type: unknown Living arrangements: longterm Gender identity (if verbalized by the patient): Female Sexual Orientatio
[2021-10-14] MEDS: ceFAZolin 2 GM/D5W 50 ML 2 GM/50 ML BAG IVPB (10:34)
--- NOTE | 2021-10-14 11:22 | W.PM.PROC2 ---
Procedure Note - Detailed Date of Procedure 10/14/21 Pre-op Diagnosis Right renal stones Post-op Diagnosis Same Procedure Performed Cystoscopy, left stent removal, right stent placement right ESWL Surgeon Richard Camargo MD Description of Procedure Patient was brought to the operative suite where she was prepped draped in routine sterile fashion while in a frog-leg position. She has very limited mobility her lower extremities making this procedure challenging. I was able to place a 16 F flexible cystoscope in her bladder. Advanced a 0.035 in glidewire to the right renal pelvis and placed a 4.8 F variable length stent the proximal coil in renal pelvis distal coil in her bladder. Left ureteral stent was removed. Focal point of the Lithotripter was then placed under collection of stones in her right renal pelvis were a total 2500 shocks were delivered at a setting of 4. Patient tolerated this procedure well and was taken recovery room good condition. Drains No Packing No Pathology None sent Complications No immediate complications Condition Stable Disposition PACU
--- NOTE | 2021-10-14 12:36 | SUR.PHASEI ---
1235 - updated family member(daughter).
--- NOTE | 2021-10-14 13:12 | SUR.PHASEII ---
RN tried to call report to nurse at [facility]. The nurse was passing meds and has to call back.
--- NOTE | 2021-10-14 14:13 | SUR.PHASEII ---
Spoke w/ nurse Tara at [facility] and gave her report.
== END 2021-10-14 13:35 ==
PROVIDERS: PCP Internal Medicine; Visit Provider Urology
PROC: (CPT 50590; principal; 2021-10-14 10:30)
PROC: (CPT 52352; 2021-10-14 10:30)
DX: N20.2 Calculus of kidney with calculus of ureter (principal); I11.0 Hypertensive heart disease with heart failure; I50.9 Heart failure, unspecified; I35.0 Nonrheumatic aortic (valve) stenosis; J44.9 Chronic obstructive pulmonary disease, unspecified; F41.8 Other specified anxiety disorders; E03.9 Hypothyroidism, unspecified; D50.9 Iron deficiency anemia, unspecified; G47.33 Obstructive sleep apnea (adult) (pediatric); E66.01 Morbid (severe) obesity due to excess calories; Z68.41 Body mass index [BMI] 40.0-44.9, adult; Z87.891 Personal history of nicotine dependence
CPT/HCPCS: 50590; 52332; 74018; C1769; C2617; J0690; J1100; J2370; J2405; J7120

== ENCOUNTER 2021-11-04 10:14 | Outpatient (CLI) | payer OTHER, MEDICARE, SELFPAY ==
--- NOTE | ~2021-11-04 | XR_ITS ---
EXAMINATION: XR abdomen/kub 1V INDICATION: Kidney stone TECHNIQUE: Supine views of the abdomen were obtained on 2 radiographs. COMPARISON: 10/14/2021; CT, 08/18/2021 FINDINGS: A left internal ureteral catheter has been removed. A right internal ureteral catheter has been placed in expected position. Right upper quadrant calcifications project over the proximal aspec t of the stent likely reflect stones in the right renal pelvis although cholelithiasis is noted on th e comparison CT. A large volume of colonic stool is present. 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 IMPRESSION: 1. Interval removal of the left internal ureteral stent and placement of a right internal ureteral st ent. 2. Right upper quadrant calcifications, stones in the renal pelvis and/or cholelithiasis. Reviewed, dictated and finalized at location A. IMPRESSION: 1. Interval removal of the left internal ureteral stent and placement of a righ t internal ureteral stent. 2. Right upper quadrant calcifications, stones in the renal pelvis and/or mauri lithiasis.
== END 2021-11-04 10:15 | disposition home or self-care (01) ==
PROVIDERS: PCP Internal Medicine; Visit Provider Urology
DX: N20.0 Calculus of kidney (principal); Z96.0 Presence of urogenital implants
CPT/HCPCS: 74018

== ENCOUNTER 2021-12-22 02:20 | Day surgery (SDC) | payer MEDICARE, SELFPAY ==
[2021-12-14 11:49] VITALS: BMI 41.4
--- NOTE | 2021-12-14 12:37 | PC.NURSE ---
PRE-OP INSTRUCTIONS, PLEASE READ CAREFULLY Report to the Outpatient Waiting Room, entrance under the green pavilion located off [facility], at time _0800_ on date _12/22/21_. OR Time: _1000_. Time changes happen often and if your time is changed the preop area will call you the afternoon before. - You and your visitor will be asked to self-screen and do not enter if you have any COVID symptoms. - We encourage only one visitor and NO visitors under age 16 are allowed at this time. Your visitor will receive communication by the phone number that is given day of service. - The patient visitor is requested to social distance or may leave the building when not with patient due to restrictions. - A mask is required within the hospital. Patients may have clear liquids (water, carbonated beverages, clear teas, apple juice) until 3 hours prior to surgery (0700 AM) with a maximum of 20 ounces. - No food from midnight until time of surgery Take the following medications with a SIP of water the morning of surgery: _CARVEDILOL, DULOXETINE, PAIN MED IF NEEDED_ Medications to discontinue _ELIQUIS INSTRUCTED BY DR. CANTU, MULTIVITAMIN/HERBAL SUPPLEMENTS 3 DAYS PRIOR TO SURGERY, Date to take last dose 12/18/21_ Please no make-up, nail croatian, hairspray, perfume, deodorant, or body powder the day of surgery. No jewelry (including any body piercings) or valuables the day of surgery, leave them at home. Please take a shower or bath the night before, or the morning of, surgery with an antibacterial soap. Wear comfortable, loose fitting clothing. - Jewelry must be removed prior to entering the operating room. Rings and piercings that are not removed may be cut off. - The hospital will not accept responsibility for valuables. - Please leave all valuables, including medications, at home the day of surgery. If you are going home after surgery, a licensed mobile lounge driver must drive you home. - NO public transportation without another adult. - We recommend that an adult stay with you for 24 hours following discharge. - We also recommend that you do not drive, make important decision, drink alcoholic beverages, or take any drugs that were not prescribed by your health care provider for at least 24 hours after your discharge time. Follow any additional instructions given to you from your surgeon. If you or anyone in your household have experienced Covid symptoms in the past week, please notify your surgeon or the nurse liaison at the phone number below for possible testing. Instructions faxed to _[facility]_and asked if any additional questions and then verbalized understanding. Patient advised to call surgeon office or pre surgery nurse liaison [phone] if any additional questions.
--- NOTE | 2021-12-20 07:17 | PM.HPGS ---
History of Present Illness History of Present Illness Consent: Risks, benefits, and alternatives have been discussed and questions answered. Patient agrees to proceed with procedure. Chief complaint: right kidney stone Narrative: Dasia Hernandez is a 81 year old female who has a history of recurrent urolithiasis. When last seen, she she underwent removal of a left ureteral stent with ESWL placement of a right ureteral stent for a large right renal calculus. The calculus is fragmented only partially. Because of her comorbidities we have elected to manage this with a chronic indwelling stent. We have discussed the alternative options including percutaneous nephrolithotomy, laser lithotripsy with extraction and repeat ESWL procedures. She has elected for a chronic indwelling stent with periodic changes. Review of Systems Cardiovascular: Cardiovascular: Denies chest pain, Denies lightheadedness, Denies palpitations and Denies dyspnea Respiratory: Respiratory: Denies dyspnea Gastrointestinal: Gastrointestinal: Denies diarrhea, Denies nausea and Denies vomiting Genitourinary: Genitourinary: Denies hematuria and Denies dysuria Endocrine: Endocrine: Denies palpitations [facility] Past Medical History Medical History Aortic stenosis Reportedly she has severe aortic stenosis and is followed by a radiopharmacist in [place]. Apparently she has been deemed not a surgical candidate at this time due to her other medical conditions. Brain aneurysm Chronic obstructive pulmonary disease Congestive heart failure Depression with anxiety Hypertension Hypothyroidism Iron deficiency anemia Morbid obesity ANNE and COPD overlap syndrome Surgical History Surgical History History of craniotomy Either for an aneurysm or AVM, was difficult to understand what she was saying. History of hysterectomy Family History Family History Father Acute myocardial infarction Social History Social History Social History: The patient lives at [facility] in [place]. 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 She used to ?smoke a lot? and quit several years ago. She denies alcohol and illicit substance use. Her son, Bal Hernandez, is her surrogate decision maker. She wishes to be a full code. Smoking packs per day: 1 Smoking cigarettes per day: 20.0 Years smoked: 10 Smoking pack-years: 10.00 Smoking status: Former smoker Tobacco type: cigarettes Second hand tobacco smoke exposure: No Smoking end date: 03/05/79 Alcohol intake: never Substance use: never Substance use type: does not use Living arrangements: custodial Additional living arrangements comments: [facility] [phone] Gender identity (if verbalized by the patient): Female Sexual Orientation (if Verbalized by the Patient): Straight or Heterosexual Spiritual care concerns: No Meds Home Medications and Allergies Home Medications Medication Instructions Recorded Confirmed Type calcium carbonate 600 mg-vitamin 1 tablet PO BID 09/02/19 12/14/21 History D3 20 mcg (800 unit) chewable tablet (Caltrate 600 plus D) duloxetine 30 mg capsule,delayed 60 mg PO DAILY 09/02/19 12/14/21 History release glucosamine-chondroitin 250 mg-200 1 tablet PO DAILY 09/02/19 12/14/21 History mg tablet (Osteo Bi-Flex) multivit with minerals-iron 18 1 tablet PO DAILY ##0 09/02/19 12/14/21 History mg-folic ac 400 mcg-vit K 25 mcg tablet (Adults Multivitamin) carvedilol 6.25 mg tablet (Coreg) 6.25 mg PO Q12HR 30 days #60 tabs 09/09/19 12/14/21 Rx acetaminophen 500 mg tablet 500 mg PO BID PRN Pain 03/30/21 12/14/21 History ascorbic acid (vitamin C) 500 mg 500 mg PO DAILY 03/30/21 12/14/21 History tablet ferrous sulf
--- NOTE | 2021-12-21 10:26 | WPDANESEPPF ---
Anes - Initial Pre Proc Eval Procedure: Operation Date: 12/22/21 10:00 Proposed Procedures p Cystoscopy, Right Stent Exchange - Richard Camargo MD Date/Time: 12/21/21 10:26 Surgeon: Richard Camargo MD Pre Op Diagnosis: right kidney stone Patient Data Age: 81 Gender: F Height: 1.42 m Weight: 83.79 kg Allergies Allergy/AdvReac Type Severity Reaction Status Date / Time pregabalin [From Lyrica] Allergy Unknown Unknown Verified 12/22/21 09:07 Sulfa (Sulfonamide Allergy Unknown Unknown Verified 12/22/21 09:07 Antibiotics) phenytoin [From Dilantin] AdvReac Mild Hives Verified 12/22/21 09:07 Home Medications Medication Instructions Recorded Confirmed Type calcium carbonate 600 mg-vitamin 1 tablet PO BID 09/02/19 12/14/21 History D3 20 mcg (800 unit) chewable tablet (Caltrate 600 plus D) duloxetine 30 mg capsule,delayed 60 mg PO DAILY 09/02/19 12/14/21 History release glucosamine-chondroitin 250 mg-200 1 tablet PO DAILY 09/02/19 12/14/21 History mg tablet (Osteo Bi-Flex) multivit with minerals-iron 18 1 tablet PO DAILY ##0 09/02/19 12/14/21 History mg-folic ac 400 mcg-vit K 25 mcg tablet (Adults Multivitamin) carvedilol 6.25 mg tablet (Coreg) 6.25 mg PO Q12HR 30 days #60 tabs 09/09/19 12/14/21 Rx acetaminophen 500 mg tablet 500 mg PO BID PRN Pain 03/30/21 12/14/21 History ascorbic acid (vitamin C) 500 mg 500 mg PO DAILY 03/30/21 12/14/21 History tablet ferrous sulfate 325 mg (65 mg 325 mg PO DAILY 03/30/21 12/14/21 History iron) tablet folic acid 1 mg tablet 1 mg PO DAILY 03/30/21 12/14/21 History hydroxyzine HCl 50 mg tablet 50 mg PO HS ITCHING 03/30/21 12/14/21 History quetiapine 25 mg tablet 25 mg PO HS 03/30/21 12/14/21 History tramadol 50 mg tablet 50 mg PO Q12H PRN Breakthrough Pain 08/18/21 12/14/21 History hydrocodone 5 mg-acetaminophen 325 1 - 2 tablet PO Q6H PRN pain #20 10/14/21 12/14/21 Rx mg tablet tabs amino acids-protein hydrolysate 17 1 ea BID 12/14/21 12/14/21 History gram-100 kcal/30 mL oral liquid (Pro-Stat AWC) apixaban 5 mg tablet (Eliquis) 5 mg DAILY 12/14/21 12/14/21 History bisacodyl 10 mg rectal suppository 10 mg RECTAL DAILY PRN Constipation 12/14/21 12/14/21 History multivitamin 1 tablet PO DAILY 12/14/21 12/14/21 History pantoprazole 40 mg tablet,delayed 40 mg PO DAILY 12/14/21 12/14/21 History release polyethylene glycol 3350 17 17 g PO BID PRN Constipation 12/14/21 12/14/21 History gram/dose oral powder (Miralax) Patient hx anesthesia problems: none Family hx anesthesia problems: none Results Review: All pre-operative results and documents have been reviewed as part of the pre-operative evaluation. [facility] Past Medical History Medical History (Updated 12/21/21 @ 10:27 by Jayden Bailey DO) Aortic stenosis Reportedly she has severe aortic stenosis and is followed by a packaging coordinator in [place]. Apparently she has been deemed not a surgical candidate at this time due to her other medical conditions. Brain aneurysm Chronic obstructive pulmonary disease CKD (chronic kidney disease) stage IV Congestive heart failure Depression with anxiety Hypertension Hypothyroidism Iron deficiency anemia Morbid obesity ANNE and COPD overlap syndrome Surgical History Surgical History History of craniotomy Either for an aneurysm or AVM, was difficult to understand what she was saying. History of hysterectomy Family History Family History Father Acute myocardial infarction Social History Social History Social History: The patient lives at [facility] in [place]. 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 She used to ?smoke a lot? and quit several years ago. She denies alcohol and illicit substance use. Her son, Bal Hernandez, is her surrogate dec
--- NOTE | ~2021-12-22 | XR_ITS ---
EXAMINATION: XR retrograde pyelo w/stent RT DATE: 12/22/2021 10:28 INDICATION: Right internal ureteral stent placement TECHNIQUE: Fluoroscopic images from a right internal ureteral stent placement are submitted for dima dawn 29 seconds of fluoroscopy time. 40 fluoroscopic images FINDINGS: There is a right double-J internal ureteral stent projecting in expected position, with proximal Windsor loop at the level of the renal pelvis and distal loop in the pelvis within the bladder lumen. IMPRESSION: 1. Right internal ureteral stent placement. Please refer to real-time procedural findings for concepcion tanner. Reviewed, dictated and finalized at location A. IMPRESSION: 1. Right internal ureteral stent placement. Please refer to real-time procedu ral findings for details.
--- NOTE | 2021-12-22 06:41 | WPDHPUPDATE1 ---
History and Physical Update Update Date/Time: 12/22/21 06:41 History and Physical has been reviewed, including an updated exam of the patient. There are NO changes in the patient's condition. Risks, benefits, and alternatives have been discussed and questions answered. Patient agrees to proceed with procedure.
[2021-12-22 08:00] VITALS: BP 100/55; PULSE 92; RESP 16; TEMP 36.8; O2SAT 97
[2021-12-22 08:58] VITALS: BMI 41.3
[2021-12-22] MEDS: LACTATED RINGERS 1,000 ML 30 ML IV CONT (09:25)
[2021-12-22] MEDS: ceFAZolin 2 GM/D5W 50 ML 2 GM/50 ML BAG IVPB (09:48)
[2021-12-22] MEDS: LIDOCAINE HCL 2% GEL UROJET 10 ML PKG MUCOUS MEM (09:55)
[2021-12-22 10:29] VITALS: BP 114/50; PULSE 82; RESP 20; TEMP 36.2; O2SAT 100
--- NOTE | 2021-12-22 10:31 | W.PM.PROC2 ---
Procedure Note - Detailed Date of Procedure 12/22/21 Pre-op Diagnosis Right kidney stones Post-op Diagnosis Same Procedure Performed Cystoscopy, right retrograde pyelography and right ureteral stent replacement Surgeon Richard Camargo MD Description of Procedure Patient is brought the op suite received prepped draped in routine sterile fashion while in lithotomy position. Cystoscopy is undertaken with a 21 F rigid cystoscope. The tip of the indwelling stent is grasped and brought to the external urethral meatus. 0.035 in glidewire was advanced in the right renal pelvis and a Verner catheter is used to obtain a retrograde pyelogram. The indwelling 4.8 F ureteral stent had been removed and a new and is replaced. There was minimal encrustation on the old stent. Patient tolerated procedure well was taken recovery room good condition Drains Yes Packing Yes Pathology Yes Complications No immediate complications Condition Stable
[2021-12-22 10:45] VITALS: BP 93/63; PULSE 82; RESP 13; O2SAT 100
--- NOTE | 2021-12-22 10:49 | SUR.PHASEI ---
1047: Simple mask removed.
[2021-12-22 11:00] VITALS: BP 107/63; PULSE 91; RESP 14; O2SAT 98
[2021-12-22 11:05] VITALS: BP 98/66; PULSE 90; RESP 12
[2021-12-22] MEDS: HYDROcodone/acetaminophen (*CRX) 5-325 MG TABLET 1 TAB PO (11:28)
[2021-12-22 11:35] VITALS: BP 103/79; PULSE 88; RESP 12
--- NOTE | 2021-12-22 11:51 | SUR.PHASEII ---
PATIENT GOING TO PENITENTIARY WITH SCHAEFFER CATHETER. PATIENT TRANSFERRED FROM STRETCHER TO HOME RECLINER WHEELCHAIR VIA [employer] PER GEOPOLITICS TEACHER REQUEST. TRANSPORTED TO PENITENTIARY VAN PER GAME BREEDING FARM MANAGER.
== END 2021-12-22 11:45 ==
PROVIDERS: PCP Internal Medicine; Visit Provider Urology
PROC: (CPT 52352; principal; 2021-12-22 10:00)
DX: N20.0 Calculus of kidney (principal); I35.0 Nonrheumatic aortic (valve) stenosis; I13.0 Hypertensive heart and chronic kidney disease with heart failure and stage 1 through stage 4 chronic kidney disease, or unspecified chronic kidney disease; I50.9 Heart failure, unspecified; N18.4 Chronic kidney disease, stage 4 (severe); F41.8 Other specified anxiety disorders; J44.9 Chronic obstructive pulmonary disease, unspecified; E03.9 Hypothyroidism, unspecified; D50.9 Iron deficiency anemia, unspecified; G47.33 Obstructive sleep apnea (adult) (pediatric); E66.01 Morbid (severe) obesity due to excess calories; Z68.41 Body mass index [BMI] 40.0-44.9, adult; Z87.891 Personal history of nicotine dependence; Z79.01 Long term (current) use of anticoagulants; Z79.891 Long term (current) use of opiate analgesic
CPT/HCPCS: 52332; 74420; A9270; C1758; C1769; C2617; J0690; J1100; J2370; J2405; J2704; J3010; J7120; Q9966

== ENCOUNTER 2022-04-18 17:57 | Inpatient (IN) | payer MEDICARE, SELFPAY ==
[2022-04-18] VITALS (22 sets, daily range): BP systolic 99–134; BP diastolic 46–119; PULSE 87–109; RESP 10–20; TEMP 36.6; O2SAT 95–97
--- NOTE | ~2022-04-18 | XR_ITS ---
Supine views of the abdomen Clinical history: Fecal impaction Findings: Bowel gas pattern is nonspecific. Moderate a large amount of stool present at the rectum. N o evidence for obstruction or free air. Right ureteral stent is in place. Probable right renal stones present. Osseous structures are intact. Impression: Moderate to large amount of stool at the rectum. Right ureteral stent with probable right nephrolithiasis. Reviewed, dictated and finalized at location . MOTIVE BUYER Impression: Moderate to large amount of stool at the rectum. Right ureteral stent with probable right nephrolithiasis.
--- NOTE | ~2022-04-18 | CT_ITS ---
EXAMINATION: CT abdomen pelvis wo con DATE: 04/18/2022 20:20 INDICATION: nonlocalized abdominal pain TECHNIQUE: Computed tomography (CT) of the abdomen and pelvis was performed without intravenous contr ast. Automated exposure control and iterative reconstruction technique were employed. The dose-length product was 1288.21 mGy-cm. COMPARISON: 08/18/2021. FINDINGS: Exam limited by arm positioning, significant motion artifact, and lack of contrast. Lower thorax: Ascending thoracic aortic aneurysm measuring up to 4 cm and not significantly changed a s visualized. Aortic valve, mitral, and coronary artery calcification. Lung parenchyma significantly obscured by motion. Stable lingular nodule. Liver: Normal. Biliary/Gallbladder: Cholelithiasis. No bile duct dilation. Pancreas: No mass or duct dilation. Spleen: Normal. Adrenals:No mass. Kidneys: Bilateral calcifications. Bilateral atrophy. Right ureteral stent. GI tract: No small bowel dilation. The rectum is dilated up to 8.1 cm by formed stool, with mild wall thickening and surrounding inflammatory change. The appendix was not visualized Diverticulosis witho ut diverticulitis. Mesentery/Peritoneum: No ascites, mass, or free air. Retroperitoneum: No mass. Atherosclerotic abdominal aortic and/or arterial calcifications. Pelvis: Urinary bladder drained by a Colindres catheter. Soft Tissues: Soft tissues and body wall unremarkable. Bones: No acute osseous finding. IMPRESSION: Limited examination, as detailed above. Fecal impaction with early findings of stercoral colitis. Reviewed, dictated and finalized at [facility] K. RIAL HAULER
--- NOTE | ~2022-04-18 | XR_ITS ---
EXAMINATION: XR chest 1V portable Exam Date/Time: 04/18/2022 18:32 ROBOTIC WELDER HISTORY: AMS Comparison: None available. RESULT: Lines, tubes, and devices: None. Lungs and pleura: Low volumes with crowding. Senescent changes. Cardiomediastinal silhouette: Stable. Other: No acute osseous or upper abdominal finding. Severe bilateral shoulder arthritis. IMPRESSION: No acute cardiopulmonary process. Reviewed, dictated and finalized at location K. TIC WELDER
--- NOTE | ~2022-04-18 | XR_ITS ---
EXAMINATION: XR abdomen/kub 1V INDICATION: Abdominal pain TECHNIQUE: Supine views of the abdomen were obtained on 2 radiographs. COMPARISON: CT, 04/18/2019 FINDINGS: A right internal ureteral stent is in expected position. There appear to be subtle stone fr agments adjacent to the proximal coiled portion of the stent. There is mild atelectasis of the lung b ases. There is fecal impaction of the rectum. No dilated loops of bowel are evident. There is advance d osteoarthritis of the left hip with deformity of the femoral head and acetabulum. IMPRESSION: 1. Fecal impaction the rectum. 2. Right internal ureteral stent in expected position with possible stone fragments adjacent to the c oiled proximal stent. Reviewed, dictated and finalized at location A. APPLICATIONS CLERK IMPRESSION: 1. Fecal impaction the rectum. 2. Right internal ureteral stent in expected position with possible stone fragm ents adjacent to the coiled proximal stent.
--- NOTE | ~2022-04-18 | XR_ITS ---
EXAMINATION: XR abdomen/kub 1V DATE: 04/21/2022 10:23 INDICATION: Fecal impaction. TECHNIQUE: A supine view of the abdomen was obtained. COMPARISON: CT abdomen and pelvis 04/18/2022 FINDINGS: Stool distends the rectosigmoid. The small bowel is normal in caliber. There is a right int ernal ureteral stent in expected position. There are stones in right kidney. IMPRESSION: 1. Stool distends the rectosigmoid. 2. Stones in right kidney with right internal ureteral stent in expected position. Reviewed, dictated and finalized at location A. N PICKER IMPRESSION: 1. Stool distends the rectosigmoid. 2. Stones in right kidney with right internal ureteral stent in expected positi on.
--- NOTE | ~2022-04-18 | XR_ITS ---
XR abdomen/kub 1V 04/23/2022 09:33 Indication: Fecal impaction Procedure: KUB Comparison: 04/22/2022 Findings: There is fecal impaction of the rectum and distal colon. Right internal ureteral stent in e xpected position. There is a radiodensity in the left upper abdomen, consistent with ingested materia l. Severe lumbar spondylosis. Nonobstructive bowel gas pattern. Impression: 1: Fecal impaction of the rectum. Reviewed, dictated and finalized at location A. H HOLDER INSPECTOR Impression: 1: Fecal impaction of the rectum.
--- NOTE | ~2022-04-18 | XR_ITS ---
XR abdomen/kub 1V 04/22/2022 08:25 Indication: Fecal impaction Procedure: AP portable chest Comparison: Comparison to multiple prior studies sequentially, with oldest reviewed study dated 10/14. Findings: Bowel gas pattern is nonobstructive. Moderate colonic fecal loading in the distal colon and rectum. There is a right internal ureteral stent. There are severe degenerative changes of the left hip with remodeling. Impression: 1: Nonobstructive bowel gas pattern. Moderate retained fecal material in the rectum and distal colon. Reviewed, dictated and finalized at location A. DYER Impression: 1: Nonobstructive bowel gas pattern. Moderate retained fecal material in the re ctum and distal colon.
--- NOTE | ~2022-04-18 | XR_ITS ---
XR abdomen/kub 1V 04/24/2022 12:51 Indication: Fecal impaction Procedure: KUB Comparison: Comparison to multiple prior studies sequentially, with oldest reviewed study dated 04/21. Findings: Unchanged fecal impaction of the rectum. Nonobstructive bowel pattern. Right internal urete ral stent position unchanged. Severe lumbar spondylosis. Severe osteoarthritis of the hips, left grea ter than right. Impression: 1: Unchanged fecal impaction of the rectum. Reviewed, dictated and finalized at location B. SYBASE DEVELOPER Impression: 1: Unchanged fecal impaction of the rectum.
--- NOTE | ~2022-04-18 | XR_ITS ---
XR abdomen/kub 1V 04/28/2022 08:32 Indication: Fecal impaction Procedure: KUB Comparison: Comparison to multiple prior studies sequentially, with oldest reviewed study dated 04/23. Findings: Improvement of rectal fecal impaction. Right internal ureteral stent position unchanged. Th ere are right renal stones. Nonobstructive bowel pattern. Severe lumbar spondylosis. Severe degenerat austyn changes of the left hip with remodeling. Moderate osteoarthritis of the right hip. Impression: 1: Significant improvement of rectal fecal impaction compared with prior studies. 2: Right nephrolithiasis with stable position to internal ureteral stent. Reviewed, dictated and finalized at location B. ECTOR CRYSTAL Impression: 1: Significant improvement of rectal fecal impaction compared with prior studie s. 2: Right nephrolithiasis with stable position to internal ureteral stent.
--- NOTE | 2022-04-18 18:10 | ECG_ITS ---
Measurements Intervals [place] Rate: 101 P: 74 KS: 149 QRS: 54 QRSD: 86 T: 53 QT: 347 QTc: 450 Interpretive Statements SINUS TACHYCARDIA MINIMAL ST CHANGE ABNORMAL RHYTHM ECG COMPARED TO ECG 03/29/2021 21:10:32 SINUS TACHYCARDIA NOW PRESENT Electronically Signed On 04-19-2022 12:51:06 JEWELRY CUTTER by Callie Falk M.D.
[2022-04-18 18:32] LABS: Basophils Absolute Auto 0.1 K/mm3 (0.0-0.1); Basophils Percent Auto 0.5 % (0.2-1.2); Eosinophils Absolute Auto 0.2 K/mm3 (0-0.3); Eosinophils Percent Auto 1.9 % (0-4.4); Hematocrit 28.7 % (37.0-47.0); Hemoglobin 8.6 g/dL (12.0-15.0); Immature Granulocyte Absolute 0.04 K/mm3 (0.00-0.031); Immature Granulocyte Percent A 0.4 % (0-0.5); Lymphocytes Percent Auto 16.3 % (18.3-44.2); Mean Corpuscular Hemoglobin 26.9 pg (26-34); Mean Corpuscular Volume 89.7 fl (80-100); Mean Platelet Volume 8.9 fl (7.4-10.4); Monocytes Absolute Auto 0.6 K/mm3 (0.1-0.6); Monocytes Percent Auto 5.7 % (2.6-8.5); Neutrophils Absolute Auto 7.9 K/mm3 (1.3-6.7); Neutrophils Percent Auto 75.2 % (45.5-73.1); Platelet Count Result 364 k/mm3 (150-375); Red Cell Distribution Width 18.3 % (11.5-14.5); White Blood Count 10.4 K/mm3 (4.5-10.0)
[2022-04-18 18:45] LABS: Alanine Aminotransferase 14 U/L (6-35); Albumin Level 3.9 g/dL (3.5-5.1); Alkaline Phosphatase 146 U/L (38-126); Anion Gap 9 mmol/L (8-16); Aspartate Amino Transferase 26 U/L (14-36); Bilirubin,Total 0.5 mg/dL (0.2-1.3); Blood Urea Nitrogen 54 mg/dL (7-17); Calcium 8.9 mg/dL (8.4-10.2); Carbon Dioxide 18 mmol/L (22-30); Chloride 112 mmol/L (98-107); Estimated Glomerular Filt Rate 12; Glucose 126 mg/dL (65-110); Potassium 4.2 mmol/L (3.4-5.0); Sodium 139 mmol/L (137-145)
[2022-04-18 18:46] LABS: INR 2.7; Prothrombin Time 27.8 Seconds (11.1-14.7)
[2022-04-18 18:47] LABS: Partial Thromboplastin Time 46.7 SECONDS (22.3-36.8)
[2022-04-18 18:55] LABS: Add Urine Microscopic? YES; Appearance Urine Turbid (Clear); Bilirubin Urine Negative (Negative); Blood Urine 3+ (Negative); Color Urine Light Red (Yellow); Glucose Urine UA Negative (Negative); Ketones Urine Negative (Negative); Leukocyte Esterase Ur 3+ LEU/UL (Negative); Nitrate Urine Positive (Negative); Protein Urine 3+ mg/dL (Negative); Specific Grav Ur 1.015 (1.001-1.035); Urobilinogen Urine 0.2 mg/dL (<2.0); pH Urine >=9.0 (5.0-9.0)
[2022-04-18] MEDS: SODIUM CHLORIDE 0.9% IV 2,000 ML 999 ML IV CONT (18:56)
[2022-04-18 18:57] LABS: Bacteria Urine 4+ /hpf; Calcium Oxalate Crystals Urine Present /hpf; Mucus Urine Rare /lpf
[2022-04-18 18:58] LABS: RBC Urine 51-75 /hpf (0-2); WBC Urine 16-20 /hpf
--- NOTE | 2022-04-18 19:18 | PC.NURSE ---
Report given to Na LEACH. Questions answered and care relinquished.
--- NOTE | 2022-04-18 19:48 | ED.GENADULT ---
HPI - General Adult General Chief complaint: Altered Mental Status Stated complaint: altered mental status Time Seen by Provider: 04/18/22 18:02 History of Present Illness HPI narrative: Patient is an 81-year-old female who presents to the ER with altered mental status and weakness. Patient typically awake alert and oriented x4 according to family. At this time patient oriented x1. Cannot give any history. She has discomfort her abdomen on exam. She also has infected appearing urine with sediment coming from her indwelling Colindres. Limited history provided by EMS. Patient sent from her nursing and rehab in [place]. Related Data Home Medications Medication Instructions Recorded Confirmed calcium carbonate 600 mg-vitamin 1 tablet PO BID 09/02/19 12/14/21 D3 20 mcg (800 unit) chewable tablet (Caltrate 600 plus D) duloxetine 30 mg capsule,delayed 60 mg PO DAILY 09/02/19 12/14/21 release glucosamine-chondroitin 250 mg-200 1 tablet PO DAILY 09/02/19 12/14/21 mg tablet (Osteo Bi-Flex) multivit with minerals-iron 18 1 tablet PO DAILY ##0 09/02/19 12/14/21 mg-folic ac 400 mcg-vit K 25 mcg tablet (Adults Multivitamin) acetaminophen 500 mg tablet 500 mg PO BID PRN Pain 03/30/21 12/14/21 ascorbic acid (vitamin C) 500 mg 500 mg PO DAILY 03/30/21 12/14/21 tablet ferrous sulfate 325 mg (65 mg 325 mg PO DAILY 03/30/21 12/14/21 iron) tablet folic acid 1 mg tablet 1 mg PO DAILY 03/30/21 12/14/21 hydroxyzine HCl 50 mg tablet 50 mg PO HS ITCHING 03/30/21 12/14/21 quetiapine 25 mg tablet 25 mg PO HS 03/30/21 12/14/21 tramadol 50 mg tablet 50 mg PO Q12H PRN Breakthrough Pain 08/18/21 12/14/21 amino acids-protein hydrolysate 17 1 ea BID 12/14/21 12/14/21 gram-100 kcal/30 mL oral liquid (Pro-Stat AWC) apixaban 5 mg tablet (Eliquis) 5 mg DAILY 12/14/21 12/14/21 bisacodyl 10 mg rectal suppository 10 mg RECTAL DAILY PRN Constipation 12/14/21 12/14/21 multivitamin 1 tablet PO DAILY 12/14/21 12/14/21 pantoprazole 40 mg tablet,delayed 40 mg PO DAILY 12/14/21 12/14/21 release polyethylene glycol 3350 17 17 g PO BID PRN Constipation 12/14/21 12/14/21 gram/dose oral powder (Miralax) Allergies Allergy/AdvReac Type Severity Reaction Status Date / Time pregabalin [From Lyrica] Allergy Unknown Unknown Verified 04/18/22 18:09 Sulfa (Sulfonamide Allergy Unknown Unknown Verified 04/18/22 18:09 Antibiotics) phenytoin [From Dilantin] AdvReac Mild Hives Verified 04/18/22 18:09 Review of Systems Review of Systems: ROS unobtainable: Yes unobtainable due to mental status PMFSH Past Medical History Medical History Aortic stenosis Reportedly she has severe aortic stenosis and is followed by a destination imagination coordinator in [place]. Apparently she has been deemed not a surgical candidate at this time due to her other medical conditions. Brain aneurysm Chronic obstructive pulmonary disease CKD (chronic kidney disease) stage IV Congestive heart failure Depression with anxiety Hypertension Hypothyroidism Iron deficiency anemia Morbid obesity ANNE and COPD overlap syndrome Surgical History Surgical History History of craniotomy Either for an aneurysm or AVM, was difficult to understand what she was saying. History of hysterectomy Family History Family History Father Acute myocardial infarction Social History Social History Social History: The patient lives at [facility] in [place]. 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 She used to ?smoke a lot? and quit several years ago. She denies alcohol and illicit substance use. Her son, Bal Hernandez, is her surrogate decision maker. She wishes to be a full code. Smoking packs per day: 1 Smoking cigarettes per day: 20.0 Years smoked: 10
--- NOTE | 2022-04-18 20:13 | PM.IMHP ---
H&P: HPI History of Present Illness Date/Time: 04/18/22 20:13 Chief Complaint: 81 years old female with past medical history of recurrent kidney stone chronic renal failure obesity obstructive sleep apnea presented to the hospital with worsening weakness decreased appetite worsening confusion patient is poor historian patient also has abdominal pain patient has multiple admission in the past for UTI and confusion per the patient daughter patient is DNR patient is not ready for hospice yet according to the patient or at the ER patient was found to have acute on top of chronic renal failure UTI started on empiric IV antibiotics patient was found having dehydration started on IV fluid as patient have tenderness of the abdomen with palpation CT scan of the abdomen was ordered and pending Review of Systems Review of Systems: Limited history due to mental status PMFSH Past Medical History Medical History Aortic stenosis Reportedly she has severe aortic stenosis and is followed by a supervisor in charge in [place]. Apparently she has been deemed not a surgical candidate at this time due to her other medical conditions. Brain aneurysm Chronic obstructive pulmonary disease CKD (chronic kidney disease) stage IV Congestive heart failure Depression with anxiety Hypertension Hypothyroidism Iron deficiency anemia Morbid obesity ANNE and COPD overlap syndrome Surgical History Surgical History History of craniotomy Either for an aneurysm or AVM, was difficult to understand what she was saying. History of hysterectomy Family History Family History Father Acute myocardial infarction Social History Social History Social History: The patient lives at [facility] in [place]. 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 She used to ?smoke a lot? and quit several years ago. She denies alcohol and illicit substance use. Her son, Bal Hernandez, is her surrogate decision maker. She wishes to be a full code. Smoking packs per day: 1 Smoking cigarettes per day: 20.0 Years smoked: 10 Smoking pack-years: 10.00 Smoking status: Former smoker Tobacco type: cigarettes Second hand tobacco smoke exposure: No Smoking end date: 03/05/79 Alcohol intake: never Substance use: never Substance use type: does not use Living arrangements: [facility] Additional living arrangements comments: [facility] [phone] Gender identity (if verbalized by the patient): Female Sexual Orientation (if Verbalized by the Patient): Straight or Heterosexual Spiritual care concerns: No Meds Home Medications and Allergies Home Medications Medication Instructions Recorded Confirmed Type calcium carbonate 600 mg-vitamin 1 tablet PO BID 09/02/19 12/14/21 History D3 20 mcg (800 unit) chewable tablet (Caltrate 600 plus D) duloxetine 30 mg capsule,delayed 60 mg PO DAILY 09/02/19 12/14/21 History release glucosamine-chondroitin 250 mg-200 1 tablet PO DAILY 09/02/19 12/14/21 History mg tablet (Osteo Bi-Flex) multivit with minerals-iron 18 1 tablet PO DAILY ##0 09/02/19 12/14/21 History mg-folic ac 400 mcg-vit K 25 mcg tablet (Adults Multivitamin) carvedilol 6.25 mg tablet (Coreg) 6.25 mg PO Q12HR 30 days #60 tabs 09/09/19 12/14/21 Rx acetaminophen 500 mg tablet 500 mg PO BID PRN Pain 03/30/21 12/14/21 History ascorbic acid (vitamin C) 500 mg 500 mg PO DAILY 03/30/21 12/14/21 History tablet ferrous sulfate 325 mg (65 mg 325 mg PO DAILY 03/30/21 12/14/21 History iron) tablet folic acid 1 mg tablet 1 mg PO DAILY 03/30/21 12/14/21 History hydroxyzine HCl 50 mg tablet 50 mg PO HS ITCHING 03/30/21 12/14/21 History quetiapine 25 mg tablet 25 mg PO HS 03/30/21 12/14/21 History trama
[2022-04-18] MEDS: SODIUM CHLORIDE 0.9% IV 1,000 ML 100 ML IV CONT (20:22)
[2022-04-18 20:47] LABS: Creatine Kinase 264 U/L (30-135)
[2022-04-18] MEDS: LACTATED RINGERS 1,000 ML 125 ML IV CONT (20:50)
[2022-04-18 21:14] LABS: Influenza A QL RT-PCR Negative (Negative); Influenza B QL RT-PCR Negative (Negative); SARS-CoV-2 RNA PCR Negative
[2022-04-18 21:59] LABS: Procalcitonin 0.1 ng/mL
[2022-04-19] VITALS (57 sets, daily range): BP systolic 85–137; BP diastolic 44–104; PULSE 79–115; RESP 3–25; TEMP 36.2–36.6; O2SAT 95–100; BMI 34.0
[2022-04-19] MEDS: HEPARIN SODIUM 5,000 UNITS/ML VIAL 5000 UNITS SUB-Q ×2 (07:23→22:37)
[2022-04-19] MEDS: polyethylene glycoL 3350 17 GM POWD.PACK PO ×5 (07:23→23:15)
[2022-04-19 08:00] LABS: Sodium Urine Random 56 meq/L
[2022-04-19 08:03] LABS: Creatinine Urine 60.4 mg/dL
[2022-04-19 08:04] LABS: Potassium Urine Random 31.6 meq/L
[2022-04-19 08:04] LABS: Total Protein Urine Random > 200 mg/dL
[2022-04-19] MEDS: SODIUM CHLORIDE 0.9% IV 1,000 ML 100 ML IV CONT ×2 (08:09→16:20)
[2022-04-19 08:14] LABS: Basophils Absolute Auto 0.1 K/mm3 (0.0-0.1); Basophils Percent Auto 0.6 % (0.2-1.2); Eosinophils Absolute Auto 0.3 K/mm3 (0-0.3); Eosinophils Percent Auto 2.4 % (0-4.4); Hemoglobin 7.8 g/dL (12.0-15.0); Immature Granulocyte Absolute 0.03 K/mm3 (0.00-0.031); Immature Granulocyte Percent A 0.3 % (0-0.5); Lymphocytes Absolute Auto 1.56 K/mm3 (0.9-3.2); Lymphocytes Percent Auto 14.3 % (18.3-44.2); Mean Corpuscular Hemoglobin 26.8 pg (26-34); Mean Corpuscular Volume 89.3 fl (80-100); Mean Platelet Volume 8.9 fl (7.4-10.4); Monocytes Absolute Auto 0.6 K/mm3 (0.1-0.6); Monocytes Percent Auto 5.5 % (2.6-8.5); Neutrophils Absolute Auto 8.4 K/mm3 (1.3-6.7); Neutrophils Percent Auto 76.9 % (45.5-73.1); Platelet Count Result 320 k/mm3 (150-375); Red Blood Count 2.91 M/mm3 (4.2-5.4); Red Cell Distribution Width 18.5 % (11.5-14.5); White Blood Count 10.9 K/mm3 (4.5-10.0)
[2022-04-19 08:28] LABS: Alanine Aminotransferase 14 U/L (6-35); Albumin Level 3.7 g/dL (3.5-5.1); Alkaline Phosphatase 128 U/L (38-126); Anion Gap 9 mmol/L (8-16); Aspartate Amino Transferase 28 U/L (14-36); Bilirubin,Total 0.5 mg/dL (0.2-1.3); Blood Urea Nitrogen 45 mg/dL (7-17); Calcium 8.6 mg/dL (8.4-10.2); Carbon Dioxide 19 mmol/L (22-30); Chloride 112 mmol/L (98-107); Estimated CRCL calculation 15 ml/min; Estimated Glomerular Filt Rate 14; Glucose 117 mg/dL (65-110); Potassium 4.2 mmol/L (3.4-5.0); Sodium 140 mmol/L (137-145)
[2022-04-19] MEDS: FAMOTIDINE 20 MG TABLET PO ×2 (09:47→22:37)
[2022-04-19] MEDS: LACTULOSE 20 GM/30 ML UDC PO (09:50)
[2022-04-19] MEDS: LACTATED RINGERS 1,000 ML 125 ML IV CONT (13:58)
--- NOTE | 2022-04-19 15:44 | PC.NURSE ---
Pt still has had no BM since giving enema
--- NOTE | 2022-04-19 17:15 | PC.NURSE ---
Pt incontinent of liquid bowel at this time.
[2022-04-19 18:02] LABS: Glucose Point of Care 122 mg/dl (65-105)
--- NOTE | 2022-04-19 18:05 | PM.IMPN ---
Progress Note: A&P Assessment and Plan (1) MANISHA (acute kidney injury): Code(s): N17.9 - Acute kidney failure, unspecified Status: Acute Assessment and Plan: Acute and of chronic renal failure most likely multifactorial related to dehydration UTI and diuretics Hold diuretics Give IV fluid Urine electrolytes was ordered Monitor closely for fluid overload as patient has history of CHF and aortic stenosis Pending CT scan of the abdomen Give IV antibiotics 04/19/2022 interval history: unfortunately patient still quite somnolent, there was a concern with complaint of abdominal pain patient was quite constipated and given MiraLax patient had a BM in the ER, upon arrival patient's serum creatinine was elevated most likely secondary to dehydration and poor p.o. intake will monitor kidney function, there is also concern for UTI we have started the patient on on Zosyn will follow-up on urine culture and sensitivity, likely stable will have PT OT evaluate the patient. (2) Sepsis: Code(s): A41.9 - Sepsis, unspecified organism Status: Acute Assessment and Plan: Secondary to UTI rule out obstructive uropathy Patient also has a generalized abdominal tenderness pending CT scan of the abdomen Broad-spectrum IV antibiotic Zosyn (3) ANNE and COPD overlap syndrome: Code(s): G47.33 - Obstructive sleep apnea (adult) (pediatric); J44.9 - Chronic obstructive pulmonary disease, unspecified Status: Acute Assessment and Plan: Stable resume home medication (4) Aortic stenosis: Qualifiers: Cardiac valve disease etiology: etiology unspecified Qualified Code(s): I35.0 - Nonrheumatic aortic (valve) stenosis Code(s): I35.0 - Nonrheumatic aortic (valve) stenosis Status: Acute Assessment and Plan: Continue to monitor (5) Hypertension: Qualifiers: Hypertension type: essential hypertension Qualified Code(s): I10 - Essential (primary) hypertension Code(s): I10 - Essential (primary) hypertension Status: Acute Assessment and Plan: Hold blood pressure medication due to relative hypotension (6) Congestive heart failure: Code(s): I50.9 - Heart failure, unspecified Status: Acute Assessment and Plan: Monitor closely for fluid overload (7) Hypothyroidism: Qualifiers: Hypothyroidism type: unspecified Qualified Code(s): E03.9 - Hypothyroidism, unspecified Code(s): E03.9 - Hypothyroidism, unspecified Status: Chronic Assessment and Plan: Pending home medication reconciliation (8) Lower extremity edema: Code(s): R60.0 - Localized edema Status: Acute Assessment and Plan: Monitor Subjective Date/time seen: 04/19/22 18:05 Chief Complaint: HPI-81 years old female with past medical history of recurrent kidney stone chronic renal failure obesity obstructive sleep apnea presented to the hospital with worsening weakness decreased appetite worsening confusion patient is poor historian patient also has abdominal pain patient has multiple admission in the past for UTI and confusion per the patient daughter patient is DNR patient is not ready for hospice yet according to the patient or at the ER patient was found to have acute on top of chronic renal failure UTI started on empiric IV antibiotics patient was found having dehydration started on IV fluid as patient have tenderness of the abdomen with palpation CT scan of the abdomen was ordered and pending 04/19/2022 interval history: unfortunately patient still quite somnolent, there was a concern with complaint of abdominal pain patient was quite constipated and given MiraLax patient had a BM in the ER, upon arrival patient's serum creatinine was elevated most likely secondary to dehydration and poor p.o. intake will monitor kidney function, there is also concern for UTI we have started the patient on on Zosyn will follow-up on urine culture and sen
--- NOTE | 2022-04-19 20:29 | PC.NURSE ---
This patient, Dasia Hernandez, was admitted to IMU Room 206-01 at 1736. Patient/family oriented to hospital policies and general routines including ID bracelet, bed and alarms, visiting hours, pain management, procedures, bathroom and other care routines, personal items, smoking policy, room service/diet, and visiting hours. Information on how to activate the Rapid Response Team has been discussed. Patient/Family are encouraged to report perceived risks to care and to ask questions if they do not understand what they are told or what they should do.
[2022-04-19] MEDS: HYDROcodone/acetaminophen (*CRX) 5-325 MG TABLET 1 TAB PO (22:45)
[2022-04-20] VITALS (7 sets, daily range): BP systolic 88–139; BP diastolic 40–76; PULSE 84–94; RESP 14–20; TEMP 36.3–36.9; O2SAT 97–99; BMI 34.0
--- NOTE | 2022-04-20 00:51 | PC.NURSE ---
Patient admitted with UTI and chronic gardner catheter. Catheter was not changed be ED while boarded for nearly 20 hours or on admission to floor in IMU. Urine cultures were drawn from gardner bag patient arrived to hospital with, and documented as clean catch. Catheter was changed after transfer to [address] [place] [address] and new cultures collected.
[2022-04-20] MEDS: MORPHINE SULFATE (*CRX) 4 MG/ML INJ IV PUSH (01:15)
[2022-04-20 06:11] LABS: Basophils Percent Auto 0.2 % (0.2-1.2); Eosinophils Absolute Auto 0.5 K/mm3 (0-0.3); Eosinophils Percent Auto 4.6 % (0-4.4); Hematocrit 24.8 % (37.0-47.0); Hemoglobin 7.4 g/dL (12.0-15.0); Immature Granulocyte Absolute 0.04 K/mm3 (0.00-0.031); Immature Granulocyte Percent A 0.4 % (0-0.5); Lymphocytes Absolute Auto 1.13 K/mm3 (0.9-3.2); Lymphocytes Percent Auto 11.4 % (18.3-44.2); Mean Corpuscular HGB Conc 29.8 g/dl (32-36); Mean Corpuscular Hemoglobin 26.9 pg (26-34); Mean Corpuscular Volume 90.2 fl (80-100); Monocytes Absolute Auto 0.4 K/mm3 (0.1-0.6); Monocytes Percent Auto 4.3 % (2.6-8.5); Neutrophils Absolute Auto 7.8 K/mm3 (1.3-6.7); Neutrophils Percent Auto 79.1 % (45.5-73.1); Platelet Count Result 287 k/mm3 (150-375); Red Blood Count 2.75 M/mm3 (4.2-5.4); Red Cell Distribution Width 18.6 % (11.5-14.5); White Blood Count 9.9 K/mm3 (4.5-10.0)
[2022-04-20] MEDS: SODIUM CHLORIDE 0.9% IV 1,000 ML 100 ML IV CONT ×2 (06:20→16:24)
[2022-04-20 06:27] LABS: Alanine Aminotransferase 12 U/L (6-35); Albumin Level 3.2 g/dL (3.5-5.1); Alkaline Phosphatase 108 U/L (38-126); Anion Gap 7 mmol/L (8-16); Aspartate Amino Transferase 27 U/L (14-36); Bilirubin,Total 0.4 mg/dL (0.2-1.3); Blood Urea Nitrogen 39 mg/dL (7-17); Calcium 8.2 mg/dL (8.4-10.2); Carbon Dioxide 19 mmol/L (22-30); Chloride 112 mmol/L (98-107); Estimated CRCL calculation 14 ml/min; Estimated Glomerular Filt Rate 15; Glucose 91 mg/dL (65-110); Magnesium 1.6 mg/dL (1.6-2.3); Potassium 3.8 mmol/L (3.4-5.0); Sodium 138 mmol/L (137-145)
[2022-04-20 06:47] LABS: Platelet Estimate Adequate (Adequate)
[2022-04-20 06:48] LABS: Anisocytosis 1+ (NORMAL); Hypochromasia 1+ (NORMAL); Schistocytes None Seen (NORMAL)
[2022-04-20] MEDS: HEPARIN SODIUM 5,000 UNITS/ML VIAL 5000 UNITS SUB-Q (08:25)
[2022-04-20] MEDS: LACTULOSE 20 GM/30 ML UDC PO (08:25)
[2022-04-20] MEDS: FAMOTIDINE 20 MG TABLET PO ×2 (08:26→21:51)
--- NOTE | 2022-04-20 10:26 | PCOTNOTE ---
Spoke with MD Dr. Combs who is agreeable to stopping OT evaluation due to patient being at current functional baseline. Will discharge order at this time.
--- NOTE | 2022-04-20 10:34 | PCPTNOTE ---
Per OT: Spoke with MD Dr. Combs who is agreeable to stopping PT evaluation due to patient being at current functional baseline. Will discharge order at this time.
--- NOTE | 2022-04-20 14:16 | PM.IMPN ---
Progress Note: A&P Assessment and Plan (1) MANISHA (acute kidney injury): Code(s): N17.9 - Acute kidney failure, unspecified Status: Acute Assessment and Plan: Acute and of chronic renal failure most likely multifactorial related to dehydration UTI and diuretics Hold diuretics Give IV fluid Urine electrolytes was ordered Monitor closely for fluid overload as patient has history of CHF and aortic stenosis Pending CT scan of the abdomen Give IV antibiotics 04/20/2022 interval history: unfortunately patient still quite somnolent, there was a concern with complaint of abdominal pain patient was quite constipated and was given MiraLax patient had a BM in the ER, today patient again bloated and c/o abdominal pain, KUB showed fecal impaction, will give patient suppository will monitor, upon arrival patient's serum creatinine was elevated most likely secondary to dehydration and poor p.o. intake, will gently hydrate the patient, will monitor kidney function, there is also concern for UTI we have started the patient on on Zosyn will follow-up on urine culture and sensitivity, likely stable will have PT OT evaluate the patient. (2) Sepsis: Code(s): A41.9 - Sepsis, unspecified organism Status: Acute Assessment and Plan: Secondary to UTI rule out obstructive uropathy Patient also has a generalized abdominal tenderness pending CT scan of the abdomen Broad-spectrum IV antibiotic Zosyn (3) ANNE and COPD overlap syndrome: Code(s): G47.33 - Obstructive sleep apnea (adult) (pediatric); J44.9 - Chronic obstructive pulmonary disease, unspecified Status: Acute Assessment and Plan: Stable resume home medication (4) Aortic stenosis: Qualifiers: Cardiac valve disease etiology: etiology unspecified Qualified Code(s): I35.0 - Nonrheumatic aortic (valve) stenosis Code(s): I35.0 - Nonrheumatic aortic (valve) stenosis Status: Acute Assessment and Plan: Continue to monitor (5) Hypertension: Qualifiers: Hypertension type: essential hypertension Qualified Code(s): I10 - Essential (primary) hypertension Code(s): I10 - Essential (primary) hypertension Status: Acute Assessment and Plan: Hold blood pressure medication due to relative hypotension (6) Congestive heart failure: Code(s): I50.9 - Heart failure, unspecified Status: Acute Assessment and Plan: Monitor closely for fluid overload (7) Hypothyroidism: Qualifiers: Hypothyroidism type: unspecified Qualified Code(s): E03.9 - Hypothyroidism, unspecified Code(s): E03.9 - Hypothyroidism, unspecified Status: Chronic Assessment and Plan: Pending home medication reconciliation (8) Lower extremity edema: Code(s): R60.0 - Localized edema Status: Acute Assessment and Plan: Monitor Subjective Date/time seen: 04/20/22 14:16 04/20/2022 interval history: unfortunately patient still quite somnolent, there was a concern with complaint of abdominal pain patient was quite constipated and was given MiraLax patient had a BM in the ER, today patient again bloated and c/o abdominal pain, KUB showed fecal impaction, will give patient suppository will monitor, upon arrival patient's serum creatinine was elevated most likely secondary to dehydration and poor p.o. intake, will gently hydrate the patient, will monitor kidney function, there is also concern for UTI we have started the patient on on Zosyn will follow-up on urine culture and sensitivity, likely stable will have PT OT evaluate the patient. Review of Systems Review of Systems: ROS unobtainable: Yes unobtainable due to mental status Exam Narrative: moderately obese Patient is comfortable, NAD HEENT: eyes are clear and none icteric LUNGS: normal respiratory effort ABD: distended Lower extremities: no edema SKIN: nonjaundiced Neuro: grossly intact somnolent. Obj
--- NOTE | 2022-04-20 14:25 | PC.NURSE ---
On 04/20/22, the student, [Maribel Elizabeth], provided care and completed [facility] documentation on this patient. I have reviewed the student's documentation and agree with the findings.
[2022-04-20] MEDS: carvediloL 6.25 MG TABLET PO (16:23)
[2022-04-20] MEDS: DULoxetine HCL 60 MG CAPSULE.DR PO (16:23)
[2022-04-20] MEDS: PANTOPRAZOLE 40 MG TABLET PO (16:24)
[2022-04-20] MEDS: cefTRIAXone 2 GM in SODIUM CHLORIDE 0.9% IV 100 ML 200 ML IVPB (21:49)
[2022-04-20] MEDS: APIXABAN 5 MG TABLET PO (21:49)
[2022-04-20] MEDS: QUEtiapine FUMARATE 25 MG TABLET PO (21:51)
[2022-04-20] MEDS: LORATADINE 10 MG TABLET PO (22:48)
[2022-04-21] VITALS (8 sets, daily range): BP systolic 101–120; BP diastolic 40–59; PULSE 80–103; RESP 16–21; TEMP 36.2–36.9; O2SAT 98–100
[2022-04-21] MEDS: SODIUM CHLORIDE 0.9% IV 1,000 ML 100 ML IV CONT (05:36)
[2022-04-21 05:53] LABS: Basophils Percent Auto 0.1 % (0.2-1.2); Eosinophils Absolute Auto 0.8 K/mm3 (0-0.3); Hematocrit 23.5 % (37.0-47.0); Immature Granulocyte Absolute 0.03 K/mm3 (0.00-0.031); Immature Granulocyte Percent A 0.3 % (0-0.5); Lymphocytes Absolute Auto 1.11 K/mm3 (0.9-3.2); Lymphocytes Percent Auto 12.9 % (18.3-44.2); Mean Corpuscular HGB Conc 29.4 g/dl (32-36); Mean Corpuscular Volume 88.7 fl (80-100); Mean Platelet Volume 9.1 fl (7.4-10.4); Monocytes Absolute Auto 0.5 K/mm3 (0.1-0.6); Monocytes Percent Auto 6.2 % (2.6-8.5); Neutrophils Absolute Auto 6.1 K/mm3 (1.3-6.7); Neutrophils Percent Auto 71.5 % (45.5-73.1); Platelet Count Result 255 k/mm3 (150-375); Red Blood Count 2.65 M/mm3 (4.2-5.4); Red Cell Distribution Width 18.8 % (11.5-14.5); White Blood Count 8.6 K/mm3 (4.5-10.0)
[2022-04-21 06:11] LABS: Alanine Aminotransferase 11 U/L (6-35); Albumin Level 2.9 g/dL (3.5-5.1); Alkaline Phosphatase 84 U/L (38-126); Anion Gap 8 mmol/L (8-16); Aspartate Amino Transferase 27 U/L (14-36); Bilirubin,Total 0.4 mg/dL (0.2-1.3); Blood Urea Nitrogen 32 mg/dL (7-17); Calcium 7.4 mg/dL (8.4-10.2); Carbon Dioxide 18 mmol/L (22-30); Chloride 116 mmol/L (98-107); Estimated CRCL calculation 15 ml/min; Estimated Glomerular Filt Rate 17; Glucose 82 mg/dL (65-110); Magnesium 1.6 mg/dL (1.6-2.3); Potassium 3.9 mmol/L (3.4-5.0); Sodium 142 mmol/L (137-145)
[2022-04-21 06:42] LABS: Hemoglobin 6.9 g/dL (12.0-15.0)
[2022-04-21 08:33] LABS: IFOB Positive Control Positive; Immunochemical Fecal Occult Bl Negative (N)
[2022-04-21] MEDS: carvediloL 6.25 MG TABLET PO ×2 (08:54→21:42)
[2022-04-21] MEDS: FOLIC ACID 1 MG TABLET PO (08:54)
[2022-04-21] MEDS: FAMOTIDINE 20 MG TABLET PO ×2 (08:54→21:41)
[2022-04-21] MEDS: ASCORBIC ACID 500 MG TABLET PO (08:54)
[2022-04-21] MEDS: APIXABAN 5 MG TABLET PO ×2 (08:54→21:41)
[2022-04-21] MEDS: MULTIVITAMINS THERAPEUTIC TAB (*BKC) 1 TABLET PO (08:56)
[2022-04-21] MEDS: PANTOPRAZOLE 40 MG TABLET PO (09:07)
[2022-04-21] MEDS: MORPHINE SULFATE (*CRX) 4 MG/ML INJ IV PUSH (09:39)
[2022-04-21] MEDS: DULoxetine HCL 60 MG CAPSULE.DR PO (09:49)
[2022-04-21] MEDS: FERROUS SULFATE 324 MG TABLET PO (11:22)
[2022-04-21 13:51] LABS: Hematocrit 23.1 % (37.0-47.0)
--- NOTE | 2022-04-21 15:17 | PM.IMPN ---
Progress Note: A&P Assessment and Plan (1) MANISHA (acute kidney injury): Code(s): N17.9 - Acute kidney failure, unspecified Status: Acute Assessment and Plan: Acute and of chronic renal failure most likely multifactorial related to dehydration UTI and diuretics Hold diuretics Give IV fluid Urine electrolytes was ordered Monitor closely for fluid overload as patient has history of CHF and aortic stenosis Pending CT scan of the abdomen Give IV antibiotics 04/21/2022 interval history: today patient little more awake and her eyes open and nodes feels better, there was a concern with complaint of abdominal pain patient was quite constipated and was given MiraLax patient had a BM in the ER, on 04/20 patient again bloated and c/o abdominal pain, KUB showed fecal impaction, gave patient suppository, today patient had 2 BMs, upon arrival patient's serum creatinine was elevated most likely secondary to dehydration and poor p.o. intake, will gently hydrate the patient, Patient Scr is improving today is 2.7 compared to 3.6 upon arrival, will monitor kidney function, there is also concern for UTI we have started the patient on Zosyn, however so far there is no growth, will stop abx, this morning her Hgb drop to 6.9 and repeat was 7, there is no madyson bleeding, possibly due to hemodilution, will consult GI for for futher recommnendaton and monitor, clinically stable will have PT OT evaluate the patient. (2) Sepsis: Code(s): A41.9 - Sepsis, unspecified organism Status: Acute Assessment and Plan: Secondary to UTI rule out obstructive uropathy Patient also has a generalized abdominal tenderness pending CT scan of the abdomen Broad-spectrum IV antibiotic Zosyn (3) ANNE and COPD overlap syndrome: Code(s): G47.33 - Obstructive sleep apnea (adult) (pediatric); J44.9 - Chronic obstructive pulmonary disease, unspecified Status: Acute Assessment and Plan: Stable resume home medication (4) Aortic stenosis: Qualifiers: Cardiac valve disease etiology: etiology unspecified Qualified Code(s): I35.0 - Nonrheumatic aortic (valve) stenosis Code(s): I35.0 - Nonrheumatic aortic (valve) stenosis Status: Acute Assessment and Plan: Continue to monitor (5) Hypertension: Qualifiers: Hypertension type: essential hypertension Qualified Code(s): I10 - Essential (primary) hypertension Code(s): I10 - Essential (primary) hypertension Status: Acute Assessment and Plan: Hold blood pressure medication due to relative hypotension (6) Congestive heart failure: Code(s): I50.9 - Heart failure, unspecified Status: Acute Assessment and Plan: Monitor closely for fluid overload (7) Hypothyroidism: Qualifiers: Hypothyroidism type: unspecified Qualified Code(s): E03.9 - Hypothyroidism, unspecified Code(s): E03.9 - Hypothyroidism, unspecified Status: Chronic Assessment and Plan: Pending home medication reconciliation (8) Lower extremity edema: Code(s): R60.0 - Localized edema Status: Acute Assessment and Plan: Monitor Subjective Date/time seen: 04/21/22 15:17 Acute and of chronic renal failure most likely multifactorial related to dehydration UTI and diuretics Hold diuretics Give IV fluid Urine electrolytes was ordered Monitor closely for fluid overload as patient has history of CHF and aortic stenosis Pending CT scan of the abdomen Give IV antibiotics 04/21/2022 interval history: today patient little more awake and her eyes open and nodes feels better, there was a concern with complaint of abdominal pain patient was quite constipated and was given MiraLax patient had a BM in the ER, on 04/20 patient again bloated and c/o abdominal pain, KUB showed fecal impaction, gave patient suppository, today patient had 2 BMs, upon arrival patient's serum creatinine was elevated most likely secondary to
--- NOTE | 2022-04-21 16:11 | WPDGICN ---
Assessment and Plan Assessment and plan (1) Fecal impaction: Code(s): K56.41 - Fecal impaction Status: Acute Assessment and Plan: She has been started on a regimen of MiraLax and also bisacodyl. The staff reported that She has had a good bowel movement earlier today. I ordered a KUB which does still show a significant amount of stool in the rectum and sigmoid. I will give an extra dose of Dulcolax. (2) E coli bacteremia: Code(s): R78.81 - Bacteremia; B96.20 - Unspecified Escherichia coli [E. coli] as the cause of diseases classified elsewhere Status: Acute Assessment and Plan: She has been started on Zosyn for apparent urinary tract infection (3) Chronic obstructive pulmonary disease: Code(s): J44.9 - Chronic obstructive pulmonary disease, unspecified Status: Acute Assessment and Plan: she is breathing comfortably at this time. She is a former smoker but has not smoked for quite a while. Plan Continue a bowel regimen with hope that she would possibly be discharged in a day or so. GI Consult Note Consult date/time: 04/21/22 16:11 HPI: Dasia Hernandez is a 81 year old female who was admitted 2 days ago with weakness and decreased appetite. she is a resident of [facility]. She has a history of chronic kidney disease. I am asked to see her because of constipation. She states that she usually has 2 bowel movements per day at home. She did not have 1 for couple of days but she did have 1 today. She is on hydrocodone regularly. She also takes MiraLax twice a day. She states that she normally does not need to take anything else for her bowels but that they move on her own with the MiraLax Review of Systems Review of Systems: All systems reviewed & are unremarkable except as noted in HPI and below [facility] Past Medical History Medical History (Updated 04/21/22 @ 16:14 by David Suarez MD) Aortic stenosis Reportedly she has severe aortic stenosis and is followed by a tool and die maker in [place]. Apparently she has been deemed not a surgical candidate at this time due to her other medical conditions. Brain aneurysm Chronic obstructive pulmonary disease CKD (chronic kidney disease) stage IV Congestive heart failure Depression with anxiety Hypertension Hypothyroidism Iron deficiency anemia Morbid obesity ANNE and COPD overlap syndrome Surgical History Surgical History History of craniotomy Either for an aneurysm or AVM, was difficult to understand what she was saying. History of hysterectomy Family History Family History Father Acute myocardial infarction Social History Social History Social History: The patient lives at [facility] in [place]. 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 She used to ?smoke a lot? and quit several years ago. She denies alcohol and illicit substance use. Her son, Bal Hernandez, is her surrogate decision maker. She wishes to be a full code. Smoking packs per day: 1 Smoking cigarettes per day: 20.0 Years smoked: 10 Smoking pack-years: 10.00 Smoking status: Unknown if ever smoked Tobacco type: cigarettes Second hand tobacco smoke exposure: No Smoking end date: 03/05/79 Alcohol intake: unknown Substance use: unknown Substance use type: does not use Living arrangements: longterm Additional living arrangements comments: [facility] [phone] Gender identity (if verbalized by the patient): Female Sexual Orientation (if Verbalized by the Patient): Straight or Heterosexual Spiritual care concerns: No Meds Home Medications and Allergies Home Medications Medication Instructions Recorded Confirmed Type calcium carbonate 600 mg-vitamin 1 tablet PO BID 09/02/19 04/19/22 History D3 20 mcg
[2022-04-21] MEDS: BISACODYL 5 MG TABLET EC 10 MG PO (16:31)
[2022-04-21 20:45] LABS: Osmolality, Urine 511 mOsm/kg (50-1200)
[2022-04-21] MEDS: QUEtiapine FUMARATE 25 MG TABLET PO (21:41)
[2022-04-21] MEDS: LORATADINE 10 MG TABLET PO (21:42)
[2022-04-22 00:51] VITALS: BP 104/78; PULSE 103; RESP 16; TEMP 36.8; O2SAT 98
[2022-04-22 06:00] VITALS: BP 130/67; PULSE 95; RESP 16; TEMP 36.9; O2SAT 100
[2022-04-22 06:28] LABS: Hemoglobin 7.7 g/dL (12.0-15.0); Mean Corpuscular HGB Conc 29.6 g/dl (32-36); Mean Corpuscular Hemoglobin 26.7 pg (26-34); Mean Corpuscular Volume 90.3 fl (80-100); Mean Platelet Volume 8.8 fl (7.4-10.4); Platelet Count Result 243 k/mm3 (150-375); Red Blood Count 2.88 M/mm3 (4.2-5.4); Red Cell Distribution Width 18.7 % (11.5-14.5); White Blood Count 8.4 K/mm3 (4.5-10.0)
[2022-04-22 06:41] LABS: Alanine Aminotransferase 13 U/L (6-35); Albumin Level 3.2 g/dL (3.5-5.1); Alkaline Phosphatase 94 U/L (38-126); Anion Gap 7 mmol/L (8-16); Aspartate Amino Transferase 24 U/L (14-36); Bilirubin,Total 0.4 mg/dL (0.2-1.3); Blood Urea Nitrogen 24 mg/dL (7-17); Calcium 7.9 mg/dL (8.4-10.2); Carbon Dioxide 17 mmol/L (22-30); Chloride 114 mmol/L (98-107); Estimated CRCL calculation 16 ml/min; Estimated Glomerular Filt Rate 18; Glucose 89 mg/dL (65-110); Magnesium 1.6 mg/dL (1.6-2.3); Potassium 3.2 mmol/L (3.4-5.0); Sodium 138 mmol/L (137-145)
--- NOTE | 2022-04-22 08:38 | WPDGIPROGNO ---
Progress Note: A&P Assessment and Plan (1) Fecal impaction: Code(s): K56.41 - Fecal impaction Status: Acute Assessment and Plan: ?She has been started on a regimen of MiraLax and also bisacodyl. ? The staff reported that She has had a good bowel movement earlier today. ?I ordered a KUB which does still show a significant amount of stool in the rectum and sigmoid. ? I had given her an extra dose of Dulcolax yesterday will get another KUB this morning.. (2) E coli bacteremia: Code(s): R78.81 - Bacteremia; B96.20 - Unspecified Escherichia coli [E. coli] as the cause of diseases classified elsewhere Status: Acute Assessment and Plan: Currently on piperacillin (3) Chronic obstructive pulmonary disease: Code(s): J44.9 - Chronic obstructive pulmonary disease, unspecified Status: Acute Assessment and Plan: she is stable and breathing comfortably on room air Subjective Date/time seen: 04/22/22 08:38 she is comfortable today. She thinks that she had a bowel movement this morning. The nursing staff told me that they observed at least 1 last night but was liquid. The lack of formed stool suggest that she may still have an impaction. She is tolerating her diet, and has no complaints of pain Exam Const: General: comfortable and alert Orientation/consciousness: patient oriented x3 Resp: Auscultation: clear to auscultation bilaterally Cardio: Rhythm: regular rhythm GI: Inspection: normal to inspection and obesity GI Palp: Yes Soft to palpation, No Tenderness to palpation present (GI), No Guarding due to palpation present (GI), Yes No hepatosplenomegaly present and No Ascites present Auscultation: normal bowel sounds Neuro: General: patient oriented x3 Objective Data Vital Signs Vital Signs: Vital Signs - 24 hr 04/21/22 08:54 04/21/22 08:50 04/21/22 10:04 Temperature 36.8 C Pulse Rate 94 93 Respiratory Rate 18 Blood Pressure 109/57 L Pulse Oximetry 100 Oxygen Delivery Room Air 04/21/22 14:05 04/21/22 18:00 04/21/22 21:40 Temperature 36.9 C 36.7 C 36.5 C Pulse Rate 90 92 96 Respiratory Rate 20 20 16 Blood Pressure 101/58 L 104/59 L 120/58 L Pulse Oximetry 98 98 99 Oxygen Delivery 04/22/22 00:51 04/21/22 20:00 04/22/22 06:00 Temperature 36.8 C 36.9 C Pulse Rate 103 H 103 H 95 Respiratory Rate 16 16 16 Blood Pressure 104/78 130/67 Pulse Oximetry 98 98 100 Oxygen Delivery Room Air Intake/Output Intake/Output: Intake & Output 04/19/22 04/20/22 04/21/22 04/22/22 23:59 23:59 23:59 23:59 Intake Total 6300 3285 1670 450 Output Total 579 956 6762 550 Balance 5350 2320 -305 -100 Meds/Results Medications: Active Medications Generic Name Dose Route Start Last Admin Trade Name Freq PRN Reason Stop Dose Admin Acetaminophen 650 mg 04/18/22 20:10 Acetaminophen 325 Mg Tablet PO Q6H PRN Pain Rated 1-3 Hydrocodone Bitart/Acetaminophen 1 tab 04/18/22 20:45 04/19/22 22:45 Hydrocodone/Acetaminophen (*Crx) 5-325 Mg Tablet PO 1 tab Q4H PRN Administration Pain Rated 4-6 Apixaban 5 mg 04/20/22 21:00 04/21/22 21:41 Apixaban 5 Mg Tablet PO 5 mg Q12HR REGINA Administration Ascorbic Acid 500 mg 04/21/22 09:00 04/21/22 08:54 Ascorbic Acid 500 Mg Tablet PO 500 mg DAILY REGINA Administration Bisacodyl 10 mg 04/20/22 11:41 Bisacodyl 10 Mg Suppository RECTAL DAILY PRN Constipation Calcium Carbonate 500 mg 04/20/22 17:00 04/21/22 16:13 Calcium/Vitamin D 500 Mg Tablet PO 05/20/22 16:59 500 mg BID REGINA Administration Carvedilol 6.25 mg 04/20/22 12:00 04/21/22 21:42 Carvedilol 6.25 Mg Tablet PO 6.25 mg Q12HR REGINA Administration Duloxetine HCl 60 mg 04/20/22 12:00 04/21/22 09:49 Duloxetine Hcl 60 Mg Capsule.Dr PO 60 mg DAILY REGINA Administration Famotidine 20 mg 04/19/22 09:00 04/21/22 21:41 Famotidine 20 Mg Tablet PO 20 mg Q12HR
[2022-04-22] MEDS: POTASSIUM CHLORIDE 20 MEQ TABLET 40 MEQ PO (09:08)
[2022-04-22 09:12] VITALS: PULSE 96
[2022-04-22] MEDS: carvediloL 6.25 MG TABLET PO ×2 (09:12→20:29)
[2022-04-22] MEDS: FAMOTIDINE 20 MG TABLET PO ×2 (09:12→22:06)
[2022-04-22] MEDS: DULoxetine HCL 60 MG CAPSULE.DR PO (09:12)
[2022-04-22] MEDS: PANTOPRAZOLE 40 MG TABLET PO (09:12)
[2022-04-22] MEDS: ASCORBIC ACID 500 MG TABLET PO (09:16)
[2022-04-22] MEDS: MULTIVITAMINS THERAPEUTIC TAB (*BKC) 1 TABLET PO (09:16)
[2022-04-22] MEDS: MAGNESIUM OXIDE 400 MG TABLET PO (09:16)
[2022-04-22] MEDS: FOLIC ACID 1 MG TABLET PO (09:18)
[2022-04-22] MEDS: APIXABAN 5 MG TABLET PO ×2 (09:18→20:29)
[2022-04-22 09:45] LABS: Iron 14 ug/dL (37-170)
[2022-04-22 09:54] LABS: Percent Iron Saturation 9 % (20-50)
[2022-04-22 11:07] LABS: Folic Acid > 20.0 ng/mL (2.76->20)
[2022-04-22] MEDS: FERROUS SULFATE 324 MG TABLET PO (12:42)
[2022-04-22] MEDS: SODIUM CHLORIDE 0.9% IV 1,000 ML 100 ML IV CONT (12:45)
[2022-04-22 14:00] VITALS: BP 127/60; PULSE 94; RESP 20; TEMP 36.6; O2SAT 99
--- NOTE | 2022-04-22 14:06 | PM.IMPN ---
Progress Note: A&P Assessment and Plan (1) MANISHA (acute kidney injury): Code(s): N17.9 - Acute kidney failure, unspecified Status: Acute Assessment and Plan: Acute and of chronic renal failure most likely multifactorial related to dehydration UTI and diuretics Hold diuretics Give IV fluid Urine electrolytes was ordered Monitor closely for fluid overload as patient has history of CHF and aortic stenosis Pending CT scan of the abdomen Give IV antibiotics 04/22/2022 interval history: today patient more awake and her eyes open and nodes feels better, there was a concern with complaint of abdominal pain patient was quite constipated and was given MiraLax patient had a BM in the ER, on 04/20 patient again bloated and c/o abdominal pain, KUB showed fecal impaction, gave patient suppository, on 04/21 patient had 2 BMs,, seen by continued dulcolax and repeat KUB still shows moderate stool in colon, upon arrival patient's serum creatinine was elevated most likely secondary to dehydration and poor p.o. intake, will gently hydrate the patient, Patient Scr is improving today is 2.6 compared to 3.6 upon arrival, will monitor kidney function, there is also concern for UTI we have started the patient on Zosyn, however so far there is no growth, will stop abx, on 04/21 morning her Hgb drop to 6.9 and repeat was 7, there is no madyson bleeding, possibly due to hemodilution, seen by GI for for futher recommnendaton to follow, and monitor, clinically stable will have PT OT evaluate the patient. (2) Sepsis: Code(s): A41.9 - Sepsis, unspecified organism Status: Acute Assessment and Plan: Secondary to UTI rule out obstructive uropathy Patient also has a generalized abdominal tenderness pending CT scan of the abdomen Broad-spectrum IV antibiotic Zosyn (3) ANNE and COPD overlap syndrome: Code(s): G47.33 - Obstructive sleep apnea (adult) (pediatric); J44.9 - Chronic obstructive pulmonary disease, unspecified Status: Acute Assessment and Plan: Stable resume home medication (4) Aortic stenosis: Qualifiers: Cardiac valve disease etiology: etiology unspecified Qualified Code(s): I35.0 - Nonrheumatic aortic (valve) stenosis Code(s): I35.0 - Nonrheumatic aortic (valve) stenosis Status: Acute Assessment and Plan: Continue to monitor (5) Hypertension: Qualifiers: Hypertension type: essential hypertension Qualified Code(s): I10 - Essential (primary) hypertension Code(s): I10 - Essential (primary) hypertension Status: Acute Assessment and Plan: Hold blood pressure medication due to relative hypotension (6) Congestive heart failure: Code(s): I50.9 - Heart failure, unspecified Status: Acute Assessment and Plan: Monitor closely for fluid overload (7) Hypothyroidism: Qualifiers: Hypothyroidism type: unspecified Qualified Code(s): E03.9 - Hypothyroidism, unspecified Code(s): E03.9 - Hypothyroidism, unspecified Status: Chronic Assessment and Plan: Pending home medication reconciliation (8) Lower extremity edema: Code(s): R60.0 - Localized edema Status: Acute Assessment and Plan: Monitor Subjective Date/time seen: 04/22/22 14:06 Acute and of chronic renal failure most likely multifactorial related to dehydration UTI and diuretics Hold diuretics Give IV fluid Urine electrolytes was ordered Monitor closely for fluid overload as patient has history of CHF and aortic stenosis Pending CT scan of the abdomen Give IV antibiotics 04/22/2022 interval history: today patient more awake and her eyes open and nodes feels better, there was a concern with complaint of abdominal pain patient was quite constipated and was given MiraLax patient had a BM in the ER, on 04/20 patient again bloated and c/o abdominal pain, KUB showed fecal impaction, gave patient suppository, on 04/21 patient had
[2022-04-22 20:00] VITALS: PULSE 107; RESP 16; O2SAT 100
[2022-04-22 21:24] VITALS: BP 114/74; PULSE 107; RESP 16; TEMP 36.6; O2SAT 100
[2022-04-22] MEDS: QUEtiapine FUMARATE 25 MG TABLET PO (22:06)
[2022-04-22] MEDS: LORATADINE 10 MG TABLET PO (22:06)
[2022-04-23 05:37] VITALS: BP 116/57; PULSE 100; RESP 20; TEMP 36.5; O2SAT 100
[2022-04-23 05:38] LABS: Hematocrit 23.9 % (37.0-47.0); Hemoglobin 7.2 g/dL (12.0-15.0); Mean Corpuscular HGB Conc 30.1 g/dl (32-36); Mean Corpuscular Hemoglobin 26.6 pg (26-34); Mean Corpuscular Volume 88.2 fl (80-100); Platelet Count Result 236 k/mm3 (150-375); Red Blood Count 2.71 M/mm3 (4.2-5.4); Red Cell Distribution Width 19.1 % (11.5-14.5); White Blood Count 8.1 K/mm3 (4.5-10.0)
[2022-04-23 05:53] LABS: Alanine Aminotransferase 12 U/L (6-35); Alkaline Phosphatase 85 U/L (38-126); Anion Gap 6 mmol/L (8-16); Aspartate Amino Transferase 24 U/L (14-36); Bilirubin,Total 0.5 mg/dL (0.2-1.3); Blood Urea Nitrogen 21 mg/dL (7-17); Calcium 7.9 mg/dL (8.4-10.2); Carbon Dioxide 17 mmol/L (22-30); Chloride 120 mmol/L (98-107); Estimated CRCL calculation 18 ml/min; Estimated Glomerular Filt Rate 20; Glucose 92 mg/dL (65-110); Magnesium 1.6 mg/dL (1.6-2.3); Potassium 3.4 mmol/L (3.4-5.0); Sodium 143 mmol/L (137-145)
--- NOTE | 2022-04-23 08:59 | WPDGIPROGNO ---
Progress Note: A&P Assessment and Plan (1) Fecal impaction: Code(s): K56.41 - Fecal impaction Status: Acute Assessment and Plan: ?She has been started on a regimen of MiraLax and also bisacodyl. ? The staff reported that She has had a good bowel movement earlier today. ?I ordered a KUB which does still show a significant amount of stool in the rectum and sigmoid. ? I had given her an extra dose of Dulcolax yesterday will get another KUB this morning.. 04/23/2022 she declined my request to do a rectal exam to check for impaction. Therefore I will obtain a KUB again. (2) E coli bacteremia: Code(s): R78.81 - Bacteremia; B96.20 - Unspecified Escherichia coli [E. coli] as the cause of diseases classified elsewhere Status: Acute Assessment and Plan: Currently on piperacillin (3) Chronic obstructive pulmonary disease: Code(s): J44.9 - Chronic obstructive pulmonary disease, unspecified Status: Acute Assessment and Plan: she is stable and breathing comfortably on room air Subjective Date/time seen: 04/23/22 08:59 is unclear whether the patient ever passing solid stool. The staff does note that she had loose stool yesterday afternoon. I told the patient that we need to ensure that her fecal impaction has resolved before releasing her. I will check another KUB today. She declined my offer to do a rectal examination. Exam Const: General: comfortable and alert Orientation/consciousness: oriented to person and confusion ( A little more confused today than previously.) Resp: Auscultation: clear to auscultation bilaterally Cardio: Rhythm: regular rhythm GI: Inspection: normal to inspection and obesity GI Palp: Yes Soft to palpation, No Tenderness to palpation present (GI), No Guarding due to palpation present (GI), Yes No hepatosplenomegaly present and No Ascites present Auscultation: normal bowel sounds Neuro: General: patient oriented x3 Objective Data Vital Signs Vital Signs: Vital Signs - 24 hr 04/22/22 09:12 04/22/22 14:00 04/22/22 21:24 Temperature 36.6 C 36.6 C Pulse Rate 96 94 107 H Respiratory Rate 20 16 Blood Pressure 127/60 114/74 Pulse Oximetry 99 100 Oxygen Delivery 04/22/22 20:00 04/23/22 05:37 Temperature 36.5 C Pulse Rate 107 H 100 Respiratory Rate 16 20 Blood Pressure 116/57 L Pulse Oximetry 100 100 Oxygen Delivery Room Air Intake/Output Intake/Output: Intake & Output 04/20/22 04/21/22 04/22/22 04/23/22 23:59 23:59 23:59 23:59 Intake Total 3285 1670 1860 670 Output Total 960 3288 2550 600 Balance 1708 -576 -129 70 Meds/Results Medications: Active Medications Generic Name Dose Route Start Last Admin Trade Name Freq PRN Reason Stop Dose Admin Acetaminophen 650 mg 04/18/22 20:10 Acetaminophen 325 Mg Tablet PO Q6H PRN Pain Rated 1-3 Hydrocodone Bitart/Acetaminophen 1 tab 04/18/22 20:45 04/19/22 22:45 Hydrocodone/Acetaminophen (*Crx) 5-325 Mg Tablet PO 1 tab Q4H PRN Administration Pain Rated 4-6 Apixaban 5 mg 04/20/22 21:00 04/22/22 20:29 Apixaban 5 Mg Tablet PO 5 mg Q12HR REGINA Administration Ascorbic Acid 500 mg 04/21/22 09:00 04/22/22 09:16 Ascorbic Acid 500 Mg Tablet PO 500 mg DAILY REGINA Administration Bisacodyl 10 mg 04/20/22 11:41 Bisacodyl 10 Mg Suppository RECTAL DAILY PRN Constipation Calcium Carbonate 500 mg 04/20/22 17:00 04/22/22 16:49 Calcium/Vitamin D 500 Mg Tablet PO 05/20/22 16:59 500 mg BID REGINA Administration Carvedilol 6.25 mg 04/20/22 12:00 04/22/22 20:29 Carvedilol 6.25 Mg Tablet PO 6.25 mg Q12HR REGINA Administration Duloxetine HCl 60 mg 04/20/22 12:00 04/22/22 09:12 Duloxetine Hcl 60 Mg Capsule.Dr PO 60 mg DAILY REGINA Administration Famotidine 20 mg 04/19/22 09:00 04/22/22 22:06 Famotidine 20 Mg Tablet PO 20 mg Q12HR REGINA Administration Ferrous Sulfate 324 mg 04/21
[2022-04-23 09:15] VITALS: O2SAT 97
[2022-04-23] MEDS: polyethylene glycoL 3350 17 GM POWD.PACK PO ×2 (09:17→17:36)
[2022-04-23] MEDS: LACTULOSE 20 GM/30 ML UDC PO (09:17)
[2022-04-23 09:18] VITALS: PULSE 98
[2022-04-23] MEDS: MAGNESIUM OXIDE 400 MG TABLET PO (09:18)
[2022-04-23] MEDS: FAMOTIDINE 20 MG TABLET PO ×2 (09:18→19:58)
[2022-04-23] MEDS: FOLIC ACID 1 MG TABLET PO (09:18)
[2022-04-23] MEDS: carvediloL 6.25 MG TABLET PO ×2 (09:18→19:58)
[2022-04-23] MEDS: DULoxetine HCL 60 MG CAPSULE.DR PO (09:18)
[2022-04-23] MEDS: APIXABAN 5 MG TABLET PO ×2 (09:18→19:58)
[2022-04-23] MEDS: PANTOPRAZOLE 40 MG TABLET PO (09:18)
[2022-04-23] MEDS: MULTIVITAMINS THERAPEUTIC TAB (*BKC) 1 TABLET PO (09:18)
[2022-04-23] MEDS: ASCORBIC ACID 500 MG TABLET PO (09:24)
--- NOTE | 2022-04-23 10:19 | PM.IMPN ---
Progress Note: A&P Assessment and Plan (1) MANISHA (acute kidney injury): Code(s): N17.9 - Acute kidney failure, unspecified Status: Acute Assessment and Plan: Acute and of chronic renal failure most likely multifactorial related to dehydration UTI and diuretics Hold diuretics Give IV fluid Urine electrolytes was ordered Monitor closely for fluid overload as patient has history of CHF and aortic stenosis Pending CT scan of the abdomen Give IV antibiotics 04/23/2022 interval history: today patient more awake and her eyes open and nodes feels better, there was a concern with complaint of abdominal pain patient was quite constipated and was given MiraLax patient had a BM in the ER, on 04/20 patient again bloated and c/o abdominal pain, KUB showed fecal impaction, gave patient suppository, on 04/21 patient had 2 BMs,, seen by GI continued dulcolax and repeat KUB still shows moderate stool in colon, repeat KUB today showed persistent fecal impaction, and Gi recommend to continue dulcolax, upon arrival patient's serum creatinine was elevated most likely secondary to dehydration and poor p.o. intake, will gently hydrate the patient, Patient Scr is improving today is 2.3 compared to 3.6 upon arrival, will monitor kidney function, there is also concern for UTI we have started the patient on Zosyn, however so far there is no growth, will stop abx, on 04/21 morning her Hgb drop to 6.9 and repeat was 7,2 there is no madyson bleeding, possibly due to hemodilution, seen by GI for for futher recommnendaton to follow, and monitor, clinically stable will have PT OT evaluate the patient. (2) Sepsis: Code(s): A41.9 - Sepsis, unspecified organism Status: Acute Assessment and Plan: Secondary to UTI rule out obstructive uropathy Patient also has a generalized abdominal tenderness pending CT scan of the abdomen Broad-spectrum IV antibiotic Zosyn (3) ANNE and COPD overlap syndrome: Code(s): G47.33 - Obstructive sleep apnea (adult) (pediatric); J44.9 - Chronic obstructive pulmonary disease, unspecified Status: Acute Assessment and Plan: Stable resume home medication (4) Aortic stenosis: Qualifiers: Cardiac valve disease etiology: etiology unspecified Qualified Code(s): I35.0 - Nonrheumatic aortic (valve) stenosis Code(s): I35.0 - Nonrheumatic aortic (valve) stenosis Status: Acute Assessment and Plan: Continue to monitor (5) Hypertension: Qualifiers: Hypertension type: essential hypertension Qualified Code(s): I10 - Essential (primary) hypertension Code(s): I10 - Essential (primary) hypertension Status: Acute Assessment and Plan: Hold blood pressure medication due to relative hypotension (6) Congestive heart failure: Code(s): I50.9 - Heart failure, unspecified Status: Acute Assessment and Plan: Monitor closely for fluid overload (7) Hypothyroidism: Qualifiers: Hypothyroidism type: unspecified Qualified Code(s): E03.9 - Hypothyroidism, unspecified Code(s): E03.9 - Hypothyroidism, unspecified Status: Chronic Assessment and Plan: Pending home medication reconciliation (8) Lower extremity edema: Code(s): R60.0 - Localized edema Status: Acute Assessment and Plan: Monitor Subjective Date/time seen: 04/23/22 10:19 Acute and of chronic renal failure most likely multifactorial related to dehydration UTI and diuretics Hold diuretics Give IV fluid Urine electrolytes was ordered Monitor closely for fluid overload as patient has history of CHF and aortic stenosis Pending CT scan of the abdomen Give IV antibiotics 04/23/2022 interval history: today patient more awake and her eyes open and nodes feels better, there was a concern with complaint of abdominal pain patient was quite constipated and was given MiraLax patient had a BM in the ER, on 04/20 patient again bloated an
[2022-04-23] MEDS: FERROUS SULFATE 324 MG TABLET PO (12:23)
[2022-04-23 14:22] VITALS: BP 113/56; PULSE 95; RESP 20; TEMP 36.6; O2SAT 100
[2022-04-23] MEDS: SODIUM CHLORIDE 0.9% IV 1,000 ML 100 ML IV CONT (16:29)
[2022-04-23] MEDS: QUEtiapine FUMARATE 25 MG TABLET PO (19:58)
[2022-04-23] MEDS: LORATADINE 10 MG TABLET PO (19:58)
[2022-04-23 20:00] VITALS: PULSE 98; RESP 20; O2SAT 99
[2022-04-23 21:30] VITALS: BP 138/75; PULSE 103; RESP 16; TEMP 36.6; O2SAT 100
[2022-04-24 04:53] LABS: Hematocrit 24.5 % (37.0-47.0); Hemoglobin 7.4 g/dL (12.0-15.0); Mean Corpuscular HGB Conc 30.2 g/dl (32-36); Mean Corpuscular Hemoglobin 27.2 pg (26-34); Mean Corpuscular Volume 90.1 fl (80-100); Mean Platelet Volume 9.2 fl (7.4-10.4); Platelet Count Result 236 k/mm3 (150-375); Red Blood Count 2.72 M/mm3 (4.2-5.4); Red Cell Distribution Width 19.3 % (11.5-14.5); White Blood Count 8.4 K/mm3 (4.5-10.0)
[2022-04-24 05:04] LABS: Alanine Aminotransferase 14 U/L (6-35); Alkaline Phosphatase 92 U/L (38-126); Anion Gap 7 mmol/L (8-16); Aspartate Amino Transferase 24 U/L (14-36); Bilirubin,Total 0.4 mg/dL (0.2-1.3); Blood Urea Nitrogen 15 mg/dL (7-17); Calcium 7.8 mg/dL (8.4-10.2); Carbon Dioxide 19 mmol/L (22-30); Chloride 117 mmol/L (98-107); Estimated CRCL calculation 20 ml/min; Estimated Glomerular Filt Rate 24; Glucose 97 mg/dL (65-110); Magnesium 1.5 mg/dL (1.6-2.3); Potassium 2.9 mmol/L (3.4-5.0); Sodium 143 mmol/L (137-145)
[2022-04-24 05:58] VITALS: BP 118/62; PULSE 100; RESP 16; TEMP 36.4; O2SAT 98
--- NOTE | 2022-04-24 06:54 | WPDGIPROGNO ---
Progress Note: A&P Assessment and Plan (1) Fecal impaction: Code(s): K56.41 - Fecal impaction Status: Acute Assessment and Plan: ?She has been started on a regimen of MiraLax and also bisacodyl. ? The staff reported that She has had a good bowel movement earlier today. ?I ordered a KUB which does still show a significant amount of stool in the rectum and sigmoid. ? I had given her an extra dose of Dulcolax yesterday will get another KUB this morning.. 04/23/2022 she declined my request to do a rectal exam to check for impaction. Therefore I will obtain a KUB again. 04/24/2022 I am hopeful that her impaction has cleared. Otherwise I will ask her again to let me try to remove it digitally. (2) E coli bacteremia: Code(s): R78.81 - Bacteremia; B96.20 - Unspecified Escherichia coli [E. coli] as the cause of diseases classified elsewhere Status: Acute Assessment and Plan: Currently on piperacillin (3) Chronic obstructive pulmonary disease: Code(s): J44.9 - Chronic obstructive pulmonary disease, unspecified Status: Acute Assessment and Plan: she is stable and breathing comfortably on room air Plan the KUB repeat did still show fecal impaction. Therefore I will put her on tentatively for removal of impaction under anesthesia tomorrow Subjective Date/time seen: 04/24/22 06:54 she cannot give any clear answers morning as to whether she had a bowel movement during the night. As of yesterday, she was still impacted per KUB even though it was felt that she had had a lot of bowel movements. She was given MiraLax bowel prep last night. We will check another KUB today. Exam Const: General: comfortable, alert and confusion ( A little more confused today than previously.) Orientation/consciousness: oriented to person, patient oriented x3 and confusion ( A little more confused today than previously.) Resp: Auscultation: clear to auscultation bilaterally Cardio: Rhythm: regular rhythm GI: Inspection: normal to inspection and obesity Auscultation: normal bowel sounds Neuro: General: oriented to person, patient oriented x3 and confusion ( A little more confused today than previously.) Objective Data Vital Signs Vital Signs: Vital Signs - 24 hr 04/23/22 09:18 04/23/22 09:15 04/23/22 14:22 Temperature 36.6 C Pulse Rate 98 95 Respiratory Rate 20 Blood Pressure 113/56 L Pulse Oximetry 97 100 Oxygen Delivery Nasal Cannula Oxygen Flow Rate 2 04/23/22 21:30 04/23/22 20:00 04/24/22 05:58 Temperature 36.6 C 36.4 C Pulse Rate 103 H 98 100 Respiratory Rate 16 20 16 Blood Pressure 138/75 118/62 Pulse Oximetry 100 99 98 Oxygen Delivery Room Air Oxygen Flow Rate Intake/Output Intake/Output: Intake & Output 04/21/22 04/22/22 04/23/22 04/24/22 23:59 23:59 23:59 23:59 Intake Total 1670 2860 910 200 Output Total 1975 0790 1275 800 Balance -305 998 -619 -953 Meds/Results Medications: Active Medications Generic Name Dose Route Start Last Admin Trade Name Freq PRN Reason Stop Dose Admin Acetaminophen 650 mg 04/18/22 20:10 Acetaminophen 325 Mg Tablet PO Q6H PRN Pain Rated 1-3 Hydrocodone Bitart/Acetaminophen 1 tab 04/18/22 20:45 04/19/22 22:45 Hydrocodone/Acetaminophen (*Crx) 5-325 Mg Tablet PO 1 tab Q4H PRN Administration Pain Rated 4-6 Apixaban 5 mg 04/20/22 21:00 04/23/22 19:58 Apixaban 5 Mg Tablet PO 5 mg Q12HR REGINA Administration Ascorbic Acid 500 mg 04/21/22 09:00 04/23/22 09:24 Ascorbic Acid 500 Mg Tablet PO 500 mg DAILY REGINA Administration Bisacodyl 10 mg 04/20/22 11:41 Bisacodyl 10 Mg Suppository RECTAL DAILY PRN Constipation Calcium Carbonate 500 mg 04/20/22 17:00 04/23/22 17:36 Calcium/Vitamin D 500 Mg Tablet PO 05/20/22 16:59 500 mg BID REGINA Administration Carvedilol 6.25 mg 04/20/22 12:00 04/23/22 19:58 Carvedilol 6.25 Mg Ta
[2022-04-24] MEDS: APIXABAN 5 MG TABLET PO ×2 (09:20→20:18)
[2022-04-24] MEDS: LACTULOSE 20 GM/30 ML UDC PO (09:20)
[2022-04-24] MEDS: DULoxetine HCL 60 MG CAPSULE.DR PO (09:20)
[2022-04-24] MEDS: PANTOPRAZOLE 40 MG TABLET PO (09:20)
[2022-04-24] MEDS: FAMOTIDINE 20 MG TABLET PO ×2 (09:20→20:18)
[2022-04-24] MEDS: polyethylene glycoL 3350 17 GM POWD.PACK PO ×2 (09:20→17:48)
[2022-04-24 09:21] VITALS: PULSE 92
[2022-04-24] MEDS: MAGNESIUM OXIDE 400 MG TABLET PO (09:21)
[2022-04-24] MEDS: carvediloL 6.25 MG TABLET PO ×2 (09:21→20:18)
[2022-04-24] MEDS: MULTIVITAMINS THERAPEUTIC TAB (*BKC) 1 TABLET PO (09:21)
[2022-04-24] MEDS: ASCORBIC ACID 500 MG TABLET PO (09:21)
[2022-04-24] MEDS: FOLIC ACID 1 MG TABLET PO (09:21)
[2022-04-24] MEDS: POTASSIUM CHLORIDE 20 MEQ TABLET 40 MEQ PO (10:46)
[2022-04-24] MEDS: MAGNESIUM SULF 2 GM/WATER 50ML 2 GM/50 ML BAG IVPB (10:46)
--- NOTE | 2022-04-24 11:28 | PCNFU ---
Nutrition Follow-Up Complete: Increased nutrient needs related to altered skin integrity as evidenced by noted DTPI to heel. Goal:PO intake 50% of meals and supplements - Not meeting goal consistently due to reduced appetite, constipation Pt current nutrition is Heart healthy diet. Ensure compact BID for additional 220 kcals and 9 g protein each. Marquez BID for wound healing. Nutrition recommendation: Continue with current orders and bowel regimen. Agree with orders. Last recorded weight is 84.3 kg. Bowel Motility: +1 BM 04/24/22 Labs Reviewed: Hgb 7.4, Hct 24.5, Alb 3.0, Cre 2.0, Mag 1.5 Meds Noted: Heparin, Zofran, lactulose Skin: DTI L heel Additional Notes: Appetite remains poor. Refusing some meals. Supplements are ordered. Agree with current diet orders. Monitor intake, wt, labs, skin. Follow up in 3 days.
--- NOTE | 2022-04-24 12:15 | PM.IMPN ---
Progress Note: A&P Assessment and Plan (1) MANISHA (acute kidney injury): Code(s): N17.9 - Acute kidney failure, unspecified Status: Acute Assessment and Plan: Acute and of chronic renal failure most likely multifactorial related to dehydration UTI and diuretics Hold diuretics Give IV fluid Urine electrolytes was ordered Monitor closely for fluid overload as patient has history of CHF and aortic stenosis Pending CT scan of the abdomen Give IV antibiotics 04/24/2022 interval history: today patient more awake and her eyes open and stats feels better, there was a concern with complaint of abdominal pain patient was quite constipated and was given MiraLax patient had a BM in the ER, on 04/20 patient again bloated and c/o abdominal pain, KUB showed fecal impaction, gave patient suppository, on 04/21 patient had 2 BMs,, seen by GI continued dulcolax and repeat KUB still shows moderate stool in colon, repeat KUB today showed persistent fecal impaction, and Gi recommend possible removal of fecal impaction if patient agrees, will continue dulcolax as patient is having loose BM, upon arrival patient's serum creatinine was elevated most likely secondary to dehydration and poor p.o. intake, will gently hydrate the patient, Patient Scr is improving today is 2.0 compared to 3.6 upon arrival, will monitor kidney function, there was also concerned for UTI we had started the patient on Zosyn, however so far there is no growth, will stop abx, on 04/21 morning her Hgb drop to 6.9 and repeat today is 7,4 today, there is no madyson bleeding, possibly due to hemodilution, seen by GI for for futher recommnendaton to follow, and monitor, clinically patient is a total care at the nursing unable to participate in PT OT (2) Sepsis: Code(s): A41.9 - Sepsis, unspecified organism Status: Acute Assessment and Plan: Secondary to UTI rule out obstructive uropathy Patient also has a generalized abdominal tenderness pending CT scan of the abdomen Broad-spectrum IV antibiotic Zosyn (3) ANNE and COPD overlap syndrome: Code(s): G47.33 - Obstructive sleep apnea (adult) (pediatric); J44.9 - Chronic obstructive pulmonary disease, unspecified Status: Acute Assessment and Plan: Stable resume home medication (4) Aortic stenosis: Qualifiers: Cardiac valve disease etiology: etiology unspecified Qualified Code(s): I35.0 - Nonrheumatic aortic (valve) stenosis Code(s): I35.0 - Nonrheumatic aortic (valve) stenosis Status: Acute Assessment and Plan: Continue to monitor (5) Hypertension: Qualifiers: Hypertension type: essential hypertension Qualified Code(s): I10 - Essential (primary) hypertension Code(s): I10 - Essential (primary) hypertension Status: Acute Assessment and Plan: Hold blood pressure medication due to relative hypotension (6) Congestive heart failure: Code(s): I50.9 - Heart failure, unspecified Status: Acute Assessment and Plan: Monitor closely for fluid overload (7) Hypothyroidism: Qualifiers: Hypothyroidism type: unspecified Qualified Code(s): E03.9 - Hypothyroidism, unspecified Code(s): E03.9 - Hypothyroidism, unspecified Status: Chronic Assessment and Plan: Pending home medication reconciliation (8) Lower extremity edema: Code(s): R60.0 - Localized edema Status: Acute Assessment and Plan: Monitor Subjective Date/time seen: 04/24/22 12:15 04/24/2022 interval history: today patient more awake and her eyes open and stats feels better, there was a concern with complaint of abdominal pain patient was quite constipated and was given MiraLax patient had a BM in the ER, on 04/20 patient again bloated and c/o abdominal pain, KUB showed fecal impaction, gave patient suppository, on 04/21 patient had 2 BMs,, seen by GI continued dulcolax and repeat KUB still shows moderate stoo
--- NOTE | 2022-04-24 12:50 | P.CDI_ITS ---
CDI Query Clarified Diagnosis Clarified Diagnosis: Documented history of CHF. CHF noted on the assessment and plan. Edema noted in the documentation. Please specify type and acuity of heart failure if known. * Acute * Chronic * Acute on Chronic * Unknown * Systolic * Diastolic * Combined Systolic and Diastolic * Unknown <Vanessa Zurita RN - Last Filed: 04/24/22 12:52> Provider Comments recent echo showed preserved LV function with ejection fraction of 70% and abnormal diastolic function most likely patient acute on chronic diastolic congestive heart failure <Sukhdeep Combs MD - Last Filed: 05/06/22 15:54>
[2022-04-24] MEDS: FERROUS SULFATE 324 MG TABLET PO (13:05)
[2022-04-24 14:00] VITALS: BP 129/75; PULSE 107; RESP 18; TEMP 36.2; O2SAT 99
[2022-04-24] MEDS: SODIUM CHLORIDE 0.9% IV 1,000 ML 100 ML IV CONT (14:52)
[2022-04-24] MEDS: HYDROcodone/acetaminophen (*CRX) 5-325 MG TABLET 1 TAB PO (17:48)
[2022-04-24 20:00] VITALS: PULSE 100; RESP 18; O2SAT 99
[2022-04-24 20:18] VITALS: PULSE 100
[2022-04-24] MEDS: LORATADINE 10 MG TABLET PO (20:18)
[2022-04-24] MEDS: QUEtiapine FUMARATE 25 MG TABLET PO (20:18)
[2022-04-24 22:00] VITALS: BP 113/54; PULSE 101; RESP 21; TEMP 37; O2SAT 100
[2022-04-25] VITALS (9 sets, daily range): BP systolic 97–136; BP diastolic 47–83; PULSE 68–104; RESP 18–22; TEMP 36.1–36.7; O2SAT 99–100
[2022-04-25] MEDS: MORPHINE SULFATE (*CRX) 4 MG/ML INJ IV PUSH ×2 (00:23→11:07)
[2022-04-25] MEDS: SODIUM CHLORIDE 0.9% IV 1,000 ML 100 ML IV CONT ×3 (01:11→23:21)
[2022-04-25 05:39] LABS: Hematocrit 25.4 % (37.0-47.0); Hemoglobin 7.7 g/dL (12.0-15.0); Mean Corpuscular HGB Conc 30.3 g/dl (32-36); Mean Corpuscular Hemoglobin 26.8 pg (26-34); Mean Corpuscular Volume 88.5 fl (80-100); Mean Platelet Volume 9.5 fl (7.4-10.4); Platelet Count Result 236 k/mm3 (150-375); Red Blood Count 2.87 M/mm3 (4.2-5.4); White Blood Count 8.7 K/mm3 (4.5-10.0)
[2022-04-25 05:55] LABS: Alanine Aminotransferase 16 U/L (6-35); Albumin Level 3.3 g/dL (3.5-5.1); Alkaline Phosphatase 102 U/L (38-126); Anion Gap 5 mmol/L (8-16); Aspartate Amino Transferase 28 U/L (14-36); Bilirubin,Total 0.4 mg/dL (0.2-1.3); Blood Urea Nitrogen 13 mg/dL (7-17); Calcium 7.7 mg/dL (8.4-10.2); Carbon Dioxide 21 mmol/L (22-30); Chloride 113 mmol/L (98-107); Estimated CRCL calculation 24 ml/min; Estimated Glomerular Filt Rate 29; Glucose 92 mg/dL (65-110); Magnesium 2.1 mg/dL (1.6-2.3); Potassium 3.7 mmol/L (3.4-5.0); Sodium 139 mmol/L (137-145)
[2022-04-25] MEDS: polyethylene glycoL 3350 17 GM POWD.PACK PO (09:10)
[2022-04-25] MEDS: DULoxetine HCL 60 MG CAPSULE.DR PO (09:10)
[2022-04-25] MEDS: FAMOTIDINE 20 MG TABLET PO ×2 (09:11→21:12)
[2022-04-25] MEDS: carvediloL 6.25 MG TABLET PO ×2 (09:11→21:12)
[2022-04-25] MEDS: ASCORBIC ACID 500 MG TABLET PO (09:12)
[2022-04-25] MEDS: PANTOPRAZOLE 40 MG TABLET PO (09:12)
[2022-04-25] MEDS: FOLIC ACID 1 MG TABLET PO (09:12)
[2022-04-25] MEDS: MULTIVITAMINS THERAPEUTIC TAB (*BKC) 1 TABLET PO (09:12)
[2022-04-25] MEDS: APIXABAN 5 MG TABLET PO ×2 (09:12→21:12)
[2022-04-25] MEDS: MAGNESIUM OXIDE 400 MG TABLET PO (10:59)
[2022-04-25] MEDS: FERROUS SULFATE 324 MG TABLET PO (11:00)
--- NOTE | 2022-04-25 12:17 | PM.IMPN ---
Progress Note: A&P Assessment and Plan (1) MANISHA (acute kidney injury): Code(s): N17.9 - Acute kidney failure, unspecified Status: Acute Assessment and Plan: Acute and of chronic renal failure most likely multifactorial related to dehydration UTI and diuretics Hold diuretics Give IV fluid Urine electrolytes was ordered Monitor closely for fluid overload as patient has history of CHF and aortic stenosis Pending CT scan of the abdomen Give IV antibiotics 04/25/2022 interval history: today patient more awake and her eyes open and stats feels better, there was a concern with complaint of abdominal pain patient was quite constipated and was given MiraLax patient had a BM in the ER, on 04/20 patient again bloated and c/o abdominal pain, KUB showed fecal impaction, gave patient suppository, on 04/21 patient had 2 BMs,, seen by GI continued dulcolax and repeat KUB still shows moderate stool in colon, repeat KUB on 04/24 showed persistent fecal impaction, and Gi recommend possible removal of fecal impaction patient has agreed for the procedure today, will continue dulcolax as patient is having loose BM, upon arrival patient's serum creatinine was elevated most likely secondary to dehydration and poor p.o. intake, will gently hydrate the patient, Patient Scr is improving today is 1.7 compared to 3.6 upon arrival, will monitor kidney function, there was also concerned for UTI we had started the patient on Zosyn, however so far there is no growth, stopped abx, on 04/21, morning her Hgb drop to 6.9 and repeat today is 7,4 today, there is no madyson bleeding, possibly due to hemodilution, seen by GI for for futher recommnendaton to follow, and monitor, clinically patient is a total care at the nursing unable to participate in PT OT (2) Sepsis: Code(s): A41.9 - Sepsis, unspecified organism Status: Acute Assessment and Plan: Secondary to UTI rule out obstructive uropathy Patient also has a generalized abdominal tenderness pending CT scan of the abdomen Broad-spectrum IV antibiotic Zosyn (3) ANNE and COPD overlap syndrome: Code(s): G47.33 - Obstructive sleep apnea (adult) (pediatric); J44.9 - Chronic obstructive pulmonary disease, unspecified Status: Acute Assessment and Plan: Stable resume home medication (4) Aortic stenosis: Qualifiers: Cardiac valve disease etiology: etiology unspecified Qualified Code(s): I35.0 - Nonrheumatic aortic (valve) stenosis Code(s): I35.0 - Nonrheumatic aortic (valve) stenosis Status: Acute Assessment and Plan: Continue to monitor (5) Hypertension: Qualifiers: Hypertension type: essential hypertension Qualified Code(s): I10 - Essential (primary) hypertension Code(s): I10 - Essential (primary) hypertension Status: Acute Assessment and Plan: Hold blood pressure medication due to relative hypotension (6) Congestive heart failure: Code(s): I50.9 - Heart failure, unspecified Status: Acute Assessment and Plan: Monitor closely for fluid overload (7) Hypothyroidism: Qualifiers: Hypothyroidism type: unspecified Qualified Code(s): E03.9 - Hypothyroidism, unspecified Code(s): E03.9 - Hypothyroidism, unspecified Status: Chronic Assessment and Plan: Pending home medication reconciliation (8) Lower extremity edema: Code(s): R60.0 - Localized edema Status: Acute Assessment and Plan: Monitor Subjective Date/time seen: 04/25/22 12:17 04/25/2022 interval history: today patient more awake and her eyes open and stats feels better, there was a concern with complaint of abdominal pain patient was quite constipated and was given MiraLax patient had a BM in the ER, on 04/20 patient again bloated and c/o abdominal pain, KUB showed fecal impaction, gave patient suppository, on 04/21 patient had 2 BMs,, seen by GI continued dulcolax and repeat K
[2022-04-25] MEDS: LACTATED RINGERS 1,000 ML 150 ML IV CONT (14:00)
--- NOTE | 2022-04-25 14:16 | WPDANESEPPF ---
Anes - Initial Pre Proc Eval Procedure: Operation Date: 04/25/22 14:15 Proposed Procedures p Removal Of Fecal Impaction - David Suarez MD Date/Time: 04/25/22 14:16 Surgeon: Parish Sarabia MD Pre Op Diagnosis: MANISHA,UTI,FECAL IMPACTION Patient Data Age: 81 Gender: F Height: 1.57 m Weight: 84.3 kg Last Vital Signs Temp 97 F L 04/25/22 13:54 Pulse 92 04/25/22 13:54 Resp 19 04/25/22 13:54 BP 136/69 04/25/22 13:54 Pulse Ox 99 04/25/22 13:54 O2 Del Method Room Air 04/25/22 13:54 O2 Flow Rate 2 04/23/22 09:15 Allergies Allergy/AdvReac Type Severity Reaction Status Date / Time pregabalin [From Lyrica] Allergy Unknown Unknown Verified 04/25/22 13:52 Sulfa (Sulfonamide Allergy Unknown Unknown Verified 04/25/22 13:52 Antibiotics) phenytoin [From Dilantin] AdvReac Mild Hives Verified 04/25/22 13:52 Home Medications Medication Instructions Recorded Confirmed Type calcium carbonate 600 mg-vitamin 1 tablet PO BID 09/02/19 04/19/22 History D3 20 mcg (800 unit) chewable tablet (Caltrate 600 plus D) duloxetine 30 mg capsule,delayed 60 mg PO DAILY 09/02/19 04/19/22 History release glucosamine-chondroitin 250 mg-200 1 tablet PO DAILY 09/02/19 04/19/22 History mg tablet (Osteo Bi-Flex) carvedilol 6.25 mg tablet (Coreg) 6.25 mg PO Q12HR 30 days #60 tabs 09/09/19 04/19/22 Rx acetaminophen 500 mg tablet 500 mg PO BID PRN Pain 03/30/21 04/19/22 History ascorbic acid (vitamin C) 500 mg 500 mg PO DAILY 03/30/21 04/19/22 History tablet ferrous sulfate 325 mg (65 mg 325 mg PO DAILY 03/30/21 04/19/22 History iron) tablet folic acid 1 mg tablet 1 mg PO DAILY 03/30/21 04/19/22 History quetiapine 25 mg tablet 25 mg PO HS 03/30/21 04/19/22 History tramadol 50 mg tablet 50 mg PO Q12H PRN Breakthrough Pain 08/18/21 04/19/22 History amino acids-protein hydrolysate 17 1 ea PO BID 12/14/21 04/19/22 History gram-100 kcal/30 mL oral liquid (Pro-Stat AWC) apixaban 5 mg tablet (Eliquis) 5 mg PO BID 12/14/21 04/19/22 History bisacodyl 10 mg rectal suppository 10 mg RECTAL DAILY PRN Constipation 12/14/21 04/19/22 History multivitamin 1 tablet PO DAILY 12/14/21 04/19/22 History pantoprazole 40 mg tablet,delayed 40 mg PO DAILY 12/14/21 04/19/22 History release polyethylene glycol 3350 17 17 g PO BID PRN Constipation 12/14/21 04/19/22 History gram/dose oral powder (Miralax) cetirizine 10 mg tablet (Zyrtec) 10 mg PO HS 04/19/22 04/19/22 History hydrocodone 5 mg-acetaminophen 325 1 tablet PO Q6H PRN Pain (Scale 04/19/22 04/19/22 History mg tablet Score 7-10) Laboratory Tests 04/25/22 04/25/22 04:53 04:53 WBC 8.7 K/mm3 K/mm3 (4.5-10.0) RBC 2.87 M/mm3 L M/mm3 (4.2-5.4) Hgb 7.7 g/dL L g/dL (12.0-15.0) Hct 25.4 % L % (37.0-47.0) MCV 88.5 fl fl (80-100) MCH 26.8 pg pg (26-34) MCHC 30.3 g/dl L g/dl (32-36) RDW 20.0 % H % (11.5-14.5) Plt Count 236 k/mm3 k/mm3 (150-375) MPV 9.5 fl fl (7.4-10.4) Sodium 139 mmol/L mmol/L (137-145) Potassium 3.7 mmol/L mmol/L (3.4-5.0) Chloride 113 mmol/L H mmol/L (98-107) Carbon Dioxide 21 mmol/L L mmol/L (22-30) Anion Gap 5 mmol/L L mmol/L (8-16) BUN 13 mg/dL mg/dL (7-17) Creatinine 1.70 mg/dL H mg/dL (0.7-1.0) Estim Creat Clear Calc 24 ml/min ml/min Estimated GFR 29 L (59 - ) Glucose 92 mg/dL mg/dL (65-110) Calcium 7.7 mg/dL L mg/dL (8.4-10.2) Magnesium 2.1 mg/dL mg/dL (1.6-2.3) Total Bilirubin 0.4 mg/dL mg/dL (0.2-1.3) AST 28 U/L U/L (14-36) ALT 16 U/L U/L (6-35) Alkaline Phosphatase 102 U/L U/L (38-126) Total Protein 7.0 g/dL g/dL (6.3-8.2) Albumin 3.3 g/dL L g/dL (3.5-5.1) Patient hx anesthesia problems: none Family hx anesthesia problems: none Results Review: All pre-operative r
--- NOTE | 2022-04-25 16:58 | OP_ITS ---
DATE OF PROCEDURE: 04/25/2022 PROCEDURE PERFORMED: Fecal disimpaction. PREOPERATIVE DIAGNOSIS: Severe fecal impaction. POSTOPERATIVE DIAGNOSIS: Severe fecal impaction. DESCRIPTION OF PROCEDURE: With the patient in the left lateral decubitus position under monitored anesthesia care provided by Anesthesia, a rectal exam was performed, which revealed a hard large fecal impaction just above the anus. I was able to gradually break this up and began removing part of it. As I did so, more formed large diameter stool gradually moved downward into the rectal area. In all, I was able to remove quite a bit of formed stool in clumps until no more could be felt within reach of my finger tip. She tolerated the procedure well. D I MT: April
[2022-04-25] MEDS: QUEtiapine FUMARATE 25 MG TABLET PO (21:12)
[2022-04-25] MEDS: LORATADINE 10 MG TABLET PO (21:12)
[2022-04-26] MEDS: polyethylene glycoL 3350 238 GM BOTTLE PO (05:47)
[2022-04-26 05:49] LABS: Hematocrit 25.7 % (37.0-47.0); Hemoglobin 7.5 g/dL (12.0-15.0); Mean Corpuscular HGB Conc 29.2 g/dl (32-36); Mean Corpuscular Hemoglobin 26.3 pg (26-34); Mean Corpuscular Volume 90.2 fl (80-100); Platelet Count Result 232 k/mm3 (150-375); Red Blood Count 2.85 M/mm3 (4.2-5.4); Red Cell Distribution Width 20.2 % (11.5-14.5); White Blood Count 9.4 K/mm3 (4.5-10.0)
[2022-04-26 06:00] VITALS: BP 122/59; PULSE 91; RESP 20; TEMP 35.8; O2SAT 99
[2022-04-26 06:00] LABS: Alanine Aminotransferase 15 U/L (6-35); Albumin Level 3.2 g/dL (3.5-5.1); Alkaline Phosphatase 111 U/L (38-126); Anion Gap 5 mmol/L (8-16); Aspartate Amino Transferase 25 U/L (14-36); Bilirubin,Total 0.4 mg/dL (0.2-1.3); Blood Urea Nitrogen 13 mg/dL (7-17); Calcium 7.9 mg/dL (8.4-10.2); Carbon Dioxide 22 mmol/L (22-30); Chloride 112 mmol/L (98-107); Estimated CRCL calculation 25 ml/min; Estimated Glomerular Filt Rate 31; Glucose 91 mg/dL (65-110); Magnesium 2.1 mg/dL (1.6-2.3); Potassium 3.9 mmol/L (3.4-5.0); Sodium 139 mmol/L (137-145)
[2022-04-26] MEDS: SODIUM CHLORIDE 0.9% IV 1,000 ML 100 ML IV CONT (08:31)
[2022-04-26] MEDS: MULTIVITAMINS THERAPEUTIC TAB (*BKC) 1 TABLET PO (08:32)
[2022-04-26] MEDS: DULoxetine HCL 60 MG CAPSULE.DR PO (08:32)
[2022-04-26 08:33] VITALS: PULSE 88
[2022-04-26] MEDS: BISACODYL 5 MG TABLET EC 10 MG PO ×2 (08:33→17:11)
[2022-04-26] MEDS: carvediloL 6.25 MG TABLET PO ×2 (08:33→20:40)
[2022-04-26] MEDS: FOLIC ACID 1 MG TABLET PO (08:33)
[2022-04-26] MEDS: FAMOTIDINE 20 MG TABLET PO ×2 (08:33→20:41)
[2022-04-26] MEDS: APIXABAN 5 MG TABLET PO ×2 (08:34→20:41)
[2022-04-26] MEDS: MAGNESIUM OXIDE 400 MG TABLET PO (08:34)
[2022-04-26] MEDS: ASCORBIC ACID 500 MG TABLET PO (08:34)
[2022-04-26] MEDS: polyethylene glycoL 3350 17 GM POWD.PACK PO ×2 (08:35→17:11)
[2022-04-26] MEDS: PANTOPRAZOLE 40 MG TABLET PO (08:37)
--- NOTE | 2022-04-26 10:29 | PM.IMPN ---
Progress Note: A&P Assessment and Plan (1) MANISHA (acute kidney injury): Code(s): N17.9 - Acute kidney failure, unspecified Status: Acute Assessment and Plan: Acute and of chronic renal failure most likely multifactorial related to dehydration UTI and diuretics. Baseline creatinine 1.6. Down to baseline now On IV fluid History of CHF closely monitor fluid balance. Admission creatinine of 3.6. Will stop IV fluid today (2) Sepsis: Code(s): A41.9 - Sepsis, unspecified organism Status: Acute Assessment and Plan: Secondary to UTI rule out obstructive uropathy Broad-spectrum IV antibiotic Zosyn Urine culture negative Blood culture x2 negative (3) ANNE and COPD overlap syndrome: Code(s): G47.33 - Obstructive sleep apnea (adult) (pediatric); J44.9 - Chronic obstructive pulmonary disease, unspecified Status: Acute Assessment and Plan: Stable resume home medication (4) Aortic stenosis: Qualifiers: Cardiac valve disease etiology: etiology unspecified Qualified Code(s): I35.0 - Nonrheumatic aortic (valve) stenosis Code(s): I35.0 - Nonrheumatic aortic (valve) stenosis Status: Acute Assessment and Plan: Continue to monitor (5) Hypertension: Qualifiers: Hypertension type: essential hypertension Qualified Code(s): I10 - Essential (primary) hypertension Code(s): I10 - Essential (primary) hypertension Status: Acute Assessment and Plan: blood pressure stable . Blood pressure medication on hold due to relative hypotension (6) Congestive heart failure: Code(s): I50.9 - Heart failure, unspecified Status: Acute Assessment and Plan: Monitor closely for fluid overload (7) Hypothyroidism: Qualifiers: Hypothyroidism type: unspecified Qualified Code(s): E03.9 - Hypothyroidism, unspecified Code(s): E03.9 - Hypothyroidism, unspecified Status: Chronic Assessment and Plan: resume home medication (8) Lower extremity edema: Code(s): R60.0 - Localized edema Status: Acute Assessment and Plan: Monitor Plan sterile coral colitis with fecal impaction. Received suppository 04/21 patient 2 BMs seen by daniel Desai repeat KUB moderate stool repeat KUB 04/24 persistent fecal status post disimpaction 04/24/2022. Acute on chronic anemia possible GI bleed however no madyson bleeding noted. halfway resident patient is a total care unable to participate in PT OT Code status full code Moderate to severe aortic valve stenosis DVT prophylaxis on apixaban Subjective Date/time seen: 04/26/22 10:29 Interval history: Chart reviewed. Presented with altered mental status and weakness related to sepsis with UTI related to indwelling Colindres catheter. She was started on broad-spectrum antibiotics. MANISHA with admission 3 6. Underlying chronic kidney disease. . Patient remains afebrile. Blood pressure stable. Condition H&H 8.6 which is about baseline. Dip to 6.9 on 04/21/2022. Creatinine has continued to improve since then down to 1.6 which is about his baseline. CT on admission showed fecal impaction with early findings of stercoral colitis. GI has been on board. Urine culture with mixed genital uzair. Blood culture x2 is negative. Fecal Disimpaction was done 04/25/2022 patient still confused. Taking orally. Having bowel movement as well. Review of Systems Review of Systems: ROS unobtainable: Yes unobtainable due to mental status Exam Narrative: moderately obese Patient is comfortable, NAD HEENT: eyes are clear and none icteric LUNGS: normal respiratory effort ABD: distended Lower extremities: no edema SKIN: nonjaundiced Neuro: grossly intact somnolent. Objective Data Vital Signs Vital Signs: Vital Signs - 24 hr 04/25/22 13:54 04/25/22 15:03 04/25/22 15:13 Temperature 97 F L Pulse Rate 92 68 71 Respiratory Rate 19 2
[2022-04-26] MEDS: FERROUS SULFATE 324 MG TABLET PO (11:20)
[2022-04-26 14:00] VITALS: BP 107/50; PULSE 85; TEMP 36.4; O2SAT 100
[2022-04-26] MEDS: MORPHINE SULFATE (*CRX) 4 MG/ML INJ IV PUSH (17:07)
[2022-04-26 20:40] VITALS: PULSE 100
[2022-04-26] MEDS: LORATADINE 10 MG TABLET PO (20:41)
[2022-04-26] MEDS: QUEtiapine FUMARATE 25 MG TABLET PO (20:41)
[2022-04-26 21:24] VITALS: BP 117/52; PULSE 95; RESP 18; TEMP 36.7; O2SAT 100
[2022-04-27] VITALS (9 sets, daily range): BP systolic 103–137; BP diastolic 52–73; PULSE 92–113; RESP 17–20; TEMP 36.1–36.9; O2SAT 98–100
[2022-04-27 06:01] LABS: Hematocrit 23.6 % (37.0-47.0); Mean Corpuscular HGB Conc 29.7 g/dl (32-36); Mean Corpuscular Hemoglobin 26.9 pg (26-34); Mean Corpuscular Volume 90.8 fl (80-100); Mean Platelet Volume 9.2 fl (7.4-10.4); Platelet Count Result 217 k/mm3 (150-375); Red Cell Distribution Width 20.5 % (11.5-14.5); White Blood Count 9.7 K/mm3 (4.5-10.0)
[2022-04-27 06:22] LABS: Alanine Aminotransferase 13 U/L (6-35); Albumin Level 2.9 g/dL (3.5-5.1); Alkaline Phosphatase 96 U/L (38-126); Anion Gap 3 mmol/L (8-16); Aspartate Amino Transferase 28 U/L (14-36); Bilirubin,Total 0.3 mg/dL (0.2-1.3); Blood Urea Nitrogen 15 mg/dL (7-17); Calcium 7.9 mg/dL (8.4-10.2); Carbon Dioxide 23 mmol/L (22-30); Chloride 111 mmol/L (98-107); Estimated CRCL calculation 20 ml/min; Estimated Glomerular Filt Rate 24; Glucose 92 mg/dL (65-110); Potassium 3.5 mmol/L (3.4-5.0); Sodium 137 mmol/L (137-145)
--- NOTE | 2022-04-27 08:42 | WPDANESEPPF ---
Anes - Initial Pre Proc Eval Procedure: Operation Date: 04/27/22 11:30 Proposed Procedures p Removal Of Fecel Impaction - David Suarez MD Date/Time: 04/27/22 08:42 Surgeon: Parish Sarabia MD Pre Op Diagnosis: MANISHA,UTI,FECAL IMPACTION Patient Data Age: 81 Gender: F Height: 1.57 m Weight: 84.3 kg Last Vital Signs Temp 36.5 C 04/27/22 04:42 Pulse 99 04/27/22 04:42 Resp 18 04/27/22 04:42 BP 103/52 L 04/27/22 04:42 Pulse Ox 100 04/27/22 04:42 O2 Del Method Room Air 04/26/22 20:00 O2 Flow Rate 2 04/23/22 09:15 Allergies Allergy/AdvReac Type Severity Reaction Status Date / Time pregabalin [From Lyrica] Allergy Unknown Unknown Verified 04/25/22 13:52 Sulfa (Sulfonamide Allergy Unknown Unknown Verified 04/25/22 13:52 Antibiotics) phenytoin [From Dilantin] AdvReac Mild Hives Verified 04/25/22 13:52 Home Medications Medication Instructions Recorded Confirmed Type calcium carbonate 600 mg-vitamin 1 tablet PO BID 09/02/19 04/19/22 History D3 20 mcg (800 unit) chewable tablet (Caltrate 600 plus D) duloxetine 30 mg capsule,delayed 60 mg PO DAILY 09/02/19 04/19/22 History release glucosamine-chondroitin 250 mg-200 1 tablet PO DAILY 09/02/19 04/19/22 History mg tablet (Osteo Bi-Flex) carvedilol 6.25 mg tablet (Coreg) 6.25 mg PO Q12HR 30 days #60 tabs 09/09/19 04/19/22 Rx acetaminophen 500 mg tablet 500 mg PO BID PRN Pain 03/30/21 04/19/22 History ascorbic acid (vitamin C) 500 mg 500 mg PO DAILY 03/30/21 04/19/22 History tablet ferrous sulfate 325 mg (65 mg 325 mg PO DAILY 03/30/21 04/19/22 History iron) tablet folic acid 1 mg tablet 1 mg PO DAILY 03/30/21 04/19/22 History quetiapine 25 mg tablet 25 mg PO HS 03/30/21 04/19/22 History tramadol 50 mg tablet 50 mg PO Q12H PRN Breakthrough Pain 08/18/21 04/19/22 History amino acids-protein hydrolysate 17 1 ea PO BID 12/14/21 04/19/22 History gram-100 kcal/30 mL oral liquid (Pro-Stat AWC) apixaban 5 mg tablet (Eliquis) 5 mg PO BID 12/14/21 04/19/22 History bisacodyl 10 mg rectal suppository 10 mg RECTAL DAILY PRN Constipation 12/14/21 04/19/22 History multivitamin 1 tablet PO DAILY 12/14/21 04/19/22 History pantoprazole 40 mg tablet,delayed 40 mg PO DAILY 12/14/21 04/19/22 History release polyethylene glycol 3350 17 17 g PO BID PRN Constipation 12/14/21 04/19/22 History gram/dose oral powder (Miralax) cetirizine 10 mg tablet (Zyrtec) 10 mg PO HS 04/19/22 04/19/22 History hydrocodone 5 mg-acetaminophen 325 1 tablet PO Q6H PRN Pain (Scale 04/19/22 04/19/22 History mg tablet Score 7-10) Laboratory Tests 04/18/22 04/27/22 04/27/22 18:20 05:13 05:13 WBC 9.7 K/mm3 K/mm3 (4.5-10.0) RBC 2.60 M/mm3 L M/mm3 (4.2-5.4) Hgb 7.0 g/dL L g/dL (12.0-15.0) Hct 23.6 % L % (37.0-47.0) MCV 90.8 fl fl (80-100) MCH 26.9 pg pg (26-34) MCHC 29.7 g/dl L g/dl (32-36) RDW 20.5 % H % (11.5-14.5) Plt Count 217 k/mm3 k/mm3 (150-375) MPV 9.2 fl fl (7.4-10.4) Sodium 137 mmol/L mmol/L (137-145) Potassium 3.5 mmol/L mmol/L (3.4-5.0) Chloride 111 mmol/L H mmol/L (98-107) Carbon Dioxide 23 mmol/L mmol/L (22-30) Anion Gap 3 mmol/L L mmol/L (8-16) BUN 15 mg/dL mg/dL (7-17) Creatinine 2.00 mg/dL H mg/dL (0.7-1.0) Estim Creat Clear Calc 20 ml/min ml/min Estimated GFR 24 L (59 - ) Glucose 92 mg/dL mg/dL (65-110) Calcium 7.9 mg/dL L mg/dL (8.4-10.2) Magnesium 2.0 mg/dL mg/dL (1.6-2.3) Total Bilirubin 0.3 mg/dL mg/dL (0.2-1.3) AST 28 U/L U/L (14-36) ALT 13 U/L U/L (6-35) Alkaline Phosphatase 96 U/L U/L (38-126) Total Protein 6.0 g/dL L g/dL (6.3-8.2) Albumin 2.9 g/dL L g/dL (3.5-5.1) Urine Casts No
--- NOTE | 2022-04-27 10:22 | PM.IMPN ---
Progress Note: A&P Assessment and Plan (1) MANISHA (acute kidney injury): Code(s): N17.9 - Acute kidney failure, unspecified Status: Acute Assessment and Plan: Acute and of chronic renal failure most likely multifactorial related to dehydration UTI and diuretics. Baseline creatinine 1.6. Down to baseline now On IV fluid History of CHF closely monitor fluid balance. Admission creatinine of 3.6. stopped IV fluid 04/26/2022 Creatinine 2 slightly above from yesterday at 1.6 the her creatinine ranged between high 1s to low 2s in the past. Will recheck and monitor if this is just a fluctuation in her baseline creatinine level. (2) Sepsis: Code(s): A41.9 - Sepsis, unspecified organism Status: Acute Assessment and Plan: Secondary to UTI rule out obstructive uropathy Broad-spectrum IV antibiotic Zosyn Started on 04/18/2022. 04/22/2022. Will recheck the urine. WBC count has been normal however confusion do persist Urine culture negative Blood culture x2 negative (3) ANNE and COPD overlap syndrome: Code(s): G47.33 - Obstructive sleep apnea (adult) (pediatric); J44.9 - Chronic obstructive pulmonary disease, unspecified Status: Acute Assessment and Plan: Stable resume home medication (4) Aortic stenosis: Qualifiers: Cardiac valve disease etiology: etiology unspecified Qualified Code(s): I35.0 - Nonrheumatic aortic (valve) stenosis Code(s): I35.0 - Nonrheumatic aortic (valve) stenosis Status: Acute Assessment and Plan: Continue to monitor (5) Hypertension: Qualifiers: Hypertension type: essential hypertension Qualified Code(s): I10 - Essential (primary) hypertension Code(s): I10 - Essential (primary) hypertension Status: Acute Assessment and Plan: blood pressure stable . Blood pressure medication on hold due to relative hypotension (6) Congestive heart failure: Code(s): I50.9 - Heart failure, unspecified Status: Acute Assessment and Plan: Monitor closely for fluid overload (7) Hypothyroidism: Qualifiers: Hypothyroidism type: unspecified Qualified Code(s): E03.9 - Hypothyroidism, unspecified Code(s): E03.9 - Hypothyroidism, unspecified Status: Chronic Assessment and Plan: resume home medication (8) Lower extremity edema: Code(s): R60.0 - Localized edema Status: Acute Assessment and Plan: Monitor Plan sterile coral colitis with fecal impaction. Received suppository 04/21 patient 2 BMs seen by continue Dulcolax repeat KUB moderate stool repeat KUB 04/24 persistent fecal status post disimpaction 04/24/2022. Repeat check x-ray abdomen with presence of large stool in the rectum. Going for fecal disimpaction again today. Acute on chronic anemia possible GI bleed however no madyson bleeding noted. skilled nursing resident patient is a total care unable to participate in PT OT Code status full code Moderate to severe aortic valve stenosis DVT prophylaxis on apixaban Subjective Date/time seen: 04/27/22 10:22 Interval history: Chart reviewed. Presented with altered mental status and weakness related to sepsis with UTI related to indwelling Colindres catheter. She was started on broad-spectrum antibiotics. MANISHA with admission 3 6. Underlying chronic kidney disease. . Patient remains afebrile. Blood pressure stable. Condition H&H 8.6 which is about baseline. Dip to 6.9 on 04/21/2022. Creatinine has continued to improve since then down to 1.6 which is about his baseline. CT on admission showed fecal impaction with early findings of stercoral colitis. GI has been on board. Urine culture with mixed genital uzair. Blood culture x2 is negative. Fecal Disimpaction was done 04/25/2022 patient still confused. Taking orally. Having bowel movement as well. 04/27/2022: Patient remains confused. going for fecal disimpaction today. Den
[2022-04-27] MEDS: LACTATED RINGERS 1,000 ML 150 ML IV CONT (10:46)
--- NOTE | 2022-04-27 11:33 | OP_ITS ---
DATE OF PROCEDURE: PROCEDURE PERFORMED: Disimpaction. PREOPERATIVE DIAGNOSIS: Fecal impaction. POSTOPERATIVE DIAGNOSIS: Fecal impaction. DESCRIPTION OF PROCEDURE: With the patient in the left lateral decubitus position, under sedation by Anesthesia, a rectal exam was performed revealing a large mass of stool in the rectum. I digitally broken up into small pieces to the point where there was no more to be able to be reached. The procedure was then terminated. She tolerated the procedure well. D I MT: April
--- NOTE | 2022-04-27 11:48 | PCNFU ---
Nutrition Follow-Up Complete: Increased nutrient needs related to altered skin integrity as evidenced by noted DTPI to heel. Goal: PO intake 50% of meals and supplements Patient is progressing towards goal. We will continue current goal. Pt current nutrition is NPO. Nutrition recommendation: when diet order advanced recommend heart healthy. Last recorded weight is 84.3 kg. Bowel Motility:+BM reported 04/26 Labs Reviewed:GFR 24, Alb 2.9,Hct 23.6,Hgb 7.0 Meds Noted:Lactulose, Zofran, Heparin Skin: Deep Tissue-Sacrum Additional Notes: Patient is NPO for fecal impaction. Prior to NPO patient had been tolerating a heart healthy diet with Marquez BID and Ensure compact BID. Agree with diet orders. Monitor intake, wt, labs, skin. Follow up in 5 days.
[2022-04-27] MEDS: LACTULOSE 20 GM/30 ML UDC PO (12:14)
[2022-04-27] MEDS: polyethylene glycoL 3350 17 GM POWD.PACK PO ×2 (12:14→17:00)
[2022-04-27] MEDS: MULTIVITAMINS THERAPEUTIC TAB (*BKC) 1 TABLET PO (12:15)
[2022-04-27] MEDS: APIXABAN 5 MG TABLET PO (12:15)
[2022-04-27] MEDS: ASCORBIC ACID 500 MG TABLET PO (12:15)
[2022-04-27] MEDS: MAGNESIUM OXIDE 400 MG TABLET PO (12:15)
[2022-04-27] MEDS: FOLIC ACID 1 MG TABLET PO (12:15)
[2022-04-27] MEDS: BISACODYL 5 MG TABLET EC 10 MG PO ×2 (12:15→17:00)
[2022-04-27] MEDS: FERROUS SULFATE 324 MG TABLET PO (12:15)
[2022-04-27] MEDS: FAMOTIDINE 20 MG TABLET PO ×2 (12:15→20:56)
[2022-04-27] MEDS: DULoxetine HCL 60 MG CAPSULE.DR PO (12:15)
[2022-04-27] MEDS: carvediloL 6.25 MG TABLET PO ×2 (12:15→20:55)
[2022-04-27] MEDS: PANTOPRAZOLE 40 MG TABLET PO ×2 (12:16→20:56)
[2022-04-27 17:59] LABS: Appearance Urine Cloudy (Clear); Bilirubin Urine Negative (Negative); Blood Urine 3+ (Negative); Color Urine Light Yellow (Yellow); Glucose Urine UA Negative (Negative); Ketones Urine Negative (Negative); Leukocyte Esterase Ur 3+ LEU/UL (NEGATIVE); Nitrate Urine Positive (Negative); Protein Urine 2+ mg/dL (Negative); Specific Grav Ur 1.015 (1.001-1.035); Urobilinogen Urine 0.2 mg/dL (<2.0)
[2022-04-27 18:17] LABS: Bacteria Urine 1+ /hpf; Mucus Urine Rare /lpf; RBC Urine >75 /hpf (0-2); Squamous Epithelial Cell Urine Rare /hpf (Few); WBC Clumps Urine Present /HPF; WBC Urine >75 /hpf (0-3)
[2022-04-27 18:22] LABS: Add Urine Microscopic? YES
[2022-04-27] MEDS: LORATADINE 10 MG TABLET PO (20:56)
[2022-04-27] MEDS: QUEtiapine FUMARATE 25 MG TABLET PO (20:56)
[2022-04-28 04:34] VITALS: BP 133/70; PULSE 93; RESP 17; TEMP 37; O2SAT 100
[2022-04-28 05:13] LABS: Hematocrit 25.1 % (37.0-47.0); Hemoglobin 7.5 g/dL (12.0-15.0); Mean Corpuscular HGB Conc 29.9 g/dl (32-36); Mean Corpuscular Hemoglobin 26.8 pg (26-34); Mean Corpuscular Volume 89.6 fl (80-100); Mean Platelet Volume 9.1 fl (7.4-10.4); Platelet Count Result 242 k/mm3 (150-375); Red Cell Distribution Width 20.3 % (11.5-14.5); White Blood Count 10.4 K/mm3 (4.5-10.0)
[2022-04-28 05:29] LABS: Alanine Aminotransferase 12 U/L (6-35); Albumin Level 2.9 g/dL (3.5-5.1); Alkaline Phosphatase 105 U/L (38-126); Anion Gap 5 mmol/L (8-16); Aspartate Amino Transferase 19 U/L (14-36); Bilirubin,Total 0.4 mg/dL (0.2-1.3); Blood Urea Nitrogen 15 mg/dL (7-17); Calcium 8.1 mg/dL (8.4-10.2); Carbon Dioxide 23 mmol/L (22-30); Chloride 111 mmol/L (98-107); Estimated CRCL calculation 22 ml/min; Estimated Glomerular Filt Rate 27; Glucose 90 mg/dL (65-110); Potassium 3.4 mmol/L (3.4-5.0); Sodium 139 mmol/L (137-145)
[2022-04-28] MEDS: HYDROcodone/acetaminophen (*CRX) 5-325 MG TABLET 1 TAB PO (08:01)
[2022-04-28 08:02] VITALS: PULSE 90
[2022-04-28] MEDS: PANTOPRAZOLE 40 MG TABLET PO ×2 (08:02→20:17)
[2022-04-28] MEDS: carvediloL 6.25 MG TABLET PO ×2 (08:02→20:17)
[2022-04-28] MEDS: FAMOTIDINE 20 MG TABLET PO ×2 (08:02→20:17)
[2022-04-28] MEDS: FOLIC ACID 1 MG TABLET PO (08:02)
[2022-04-28] MEDS: MULTIVITAMINS THERAPEUTIC TAB (*BKC) 1 TABLET PO (08:02)
[2022-04-28] MEDS: DULoxetine HCL 60 MG CAPSULE.DR PO (08:02)
[2022-04-28] MEDS: LACTULOSE 20 GM/30 ML UDC PO (08:03)
[2022-04-28] MEDS: MAGNESIUM OXIDE 400 MG TABLET PO (08:03)
[2022-04-28] MEDS: ASCORBIC ACID 500 MG TABLET PO (08:03)
[2022-04-28] MEDS: FERROUS SULFATE 324 MG TABLET PO (12:57)
[2022-04-28] MEDS: polyethylene glycoL 3350 17 GM POWD.PACK PO (12:57)
[2022-04-28] MEDS: BISACODYL 5 MG TABLET EC 10 MG PO (12:57)
--- NOTE | 2022-04-28 13:28 | PM.IMPN ---
Progress Note: A&P Assessment and Plan (1) MANISHA (acute kidney injury): Code(s): N17.9 - Acute kidney failure, unspecified Status: Acute Assessment and Plan: Acute and of chronic renal failure most likely multifactorial related to dehydration UTI and diuretics. Baseline creatinine 1.6. Down to baseline now History of CHF closely monitor fluid balance. Admission creatinine of 3.6. stopped IV fluid 04/26/2022 Creatinine 2 slightly above from yesterday at 1.6 the her creatinine ranged between high 1s to low 2s in the past. recheck today with stable creatinine (2) Sepsis: Code(s): A41.9 - Sepsis, unspecified organism Status: Acute Assessment and Plan: Secondary to UTI rule out obstructive uropathy Broad-spectrum IV antibiotic Zosyn Started on 04/18/2022. 04/22/2022. urinalysis with >75 wbc and rbc. repeat urine culture pending. Will be initiated IV antibiotics. WBC count has been normal however confusion do persist Urine culture negative Blood culture x2 negative (3) ANNE and COPD overlap syndrome: Code(s): G47.33 - Obstructive sleep apnea (adult) (pediatric); J44.9 - Chronic obstructive pulmonary disease, unspecified Status: Acute Assessment and Plan: Stable resume home medication (4) Aortic stenosis: Qualifiers: Cardiac valve disease etiology: etiology unspecified Qualified Code(s): I35.0 - Nonrheumatic aortic (valve) stenosis Code(s): I35.0 - Nonrheumatic aortic (valve) stenosis Status: Acute Assessment and Plan: Continue to monitor (5) Hypertension: Qualifiers: Hypertension type: essential hypertension Qualified Code(s): I10 - Essential (primary) hypertension Code(s): I10 - Essential (primary) hypertension Status: Acute Assessment and Plan: blood pressure stable . Blood pressure medication on hold due to relative hypotension (6) Congestive heart failure: Code(s): I50.9 - Heart failure, unspecified Status: Acute Assessment and Plan: Monitor closely for fluid overload (7) Hypothyroidism: Qualifiers: Hypothyroidism type: unspecified Qualified Code(s): E03.9 - Hypothyroidism, unspecified Code(s): E03.9 - Hypothyroidism, unspecified Status: Chronic Assessment and Plan: resume home medication (8) Lower extremity edema: Code(s): R60.0 - Localized edema Status: Acute Assessment and Plan: Monitor Plan sterile coral colitis with fecal impaction. Received suppository 04/21 patient 2 BMs seen by continue Dulcolax repeat KUB moderate stool repeat KUB 04/24 persistent fecal status post disimpaction 04/24/2022. Repeat check x-ray abdomen with presence of large stool in the rectum. s/p repeat disimpaction 04/27/2022. xray 04/28 with improvement in fecal impaction. Acute on chronic anemia possible GI bleed however no madyson bleeding noted. [facility] resident patient is a total care unable to participate in PT OT Code status full code Moderate to severe aortic valve stenosis DVT prophylaxis on apixaban Subjective Date/time seen: 04/28/22 13:29 Interval history: Chart reviewed. Presented with altered mental status and weakness related to sepsis with UTI related to indwelling Colindres catheter. She was started on broad-spectrum antibiotics. MANISHA with admission 3 6. Underlying chronic kidney disease. . Patient remains afebrile. Blood pressure stable. Condition H&H 8.6 which is about baseline. Dip to 6.9 on 04/21/2022. Creatinine has continued to improve since then down to 1.6 which is about his baseline. CT on admission showed fecal impaction with early findings of stercoral colitis. GI has been on board. Urine culture with mixed genital uzair. Blood culture x2 is negative. Fecal Disimpaction was done 04/25/2022 patient still confused. Taking orally. Having bowel movement as well. 04/27/2022: Patient remains confu
[2022-04-28 13:42] VITALS: BP 108/56; PULSE 108; RESP 20; TEMP 36.9; O2SAT 100
--- NOTE | 2022-04-28 15:05 | WPDGIPROGNO ---
Progress Note: A&P Assessment and Plan (1) Fecal impaction: Code(s): K56.41 - Fecal impaction Status: Acute Assessment and Plan: ?She has been started on a regimen of MiraLax and also bisacodyl. ? The staff reported that She has had a good bowel movement earlier today. ?I ordered a KUB which does still show a significant amount of stool in the rectum and sigmoid. ? I had given her an extra dose of Dulcolax yesterday will get another KUB this morning.. 04/23/2022 she declined my request to do a rectal exam to check for impaction. Therefore I will obtain a KUB again. 04/24/2022 I am hopeful that her impaction has cleared. Otherwise I will ask her again to let me try to remove it digitally. 04/28/2022 impaction has finally resolved. I will discontinue the Dulcolax and cut MiraLax down to once a day. (2) E coli bacteremia: Code(s): R78.81 - Bacteremia; B96.20 - Unspecified Escherichia coli [E. coli] as the cause of diseases classified elsewhere Status: Acute Assessment and Plan: Currently on piperacillin (3) Chronic obstructive pulmonary disease: Code(s): J44.9 - Chronic obstructive pulmonary disease, unspecified Status: Acute Assessment and Plan: she is stable and breathing comfortably on room air Plan From my perspective, she is ready to be discharged but should stay on MiraLax indefinitely. Subjective Date/time seen: 04/28/22 15:05 She has had good bowel movements. KUB shows marked improvement. We can there pain cut back on the laxatives. Exam Const: General: comfortable, alert and confusion ( A little more confused today than previously.) Orientation/consciousness: oriented to person, patient oriented x3 and confusion ( A little more confused today than previously.) Resp: Auscultation: clear to auscultation bilaterally Cardio: Rhythm: regular rhythm GI: Inspection: normal to inspection and obesity Auscultation: normal bowel sounds Neuro: General: oriented to person, patient oriented x3 and confusion ( A little more confused today than previously.) Objective Data Vital Signs Vital Signs: Vital Signs - 24 hr 04/27/22 20:47 04/27/22 20:55 04/27/22 20:00 Temperature 36.9 C Pulse Rate 102 H 100 Respiratory Rate 17 Blood Pressure 126/64 Pulse Oximetry 100 Oxygen Delivery Room Air 04/28/22 04:34 04/28/22 08:02 04/28/22 08:16 Temperature 37.0 C Pulse Rate 93 90 Respiratory Rate 17 Blood Pressure 133/70 Pulse Oximetry 100 Oxygen Delivery Room Air 04/28/22 13:42 Temperature 36.9 C Pulse Rate 108 H Respiratory Rate 20 Blood Pressure 108/56 L Pulse Oximetry 100 Oxygen Delivery Intake/Output Intake/Output: Intake & Output 04/25/22 04/26/22 04/27/22 04/28/22 23:59 23:59 23:59 23:59 Intake Total 3570 2080 1230 290 Output Total 3859 829 5549 650 Balance 2020 1180 230 -360 Meds/Results Medications: Active Medications Generic Name Dose Route Start Last Admin Trade Name Freq PRN Reason Stop Dose Admin Acetaminophen 650 mg 04/18/22 20:10 Acetaminophen 325 Mg Tablet PO Q6H PRN Pain Rated 1-3 Hydrocodone Bitart/Acetaminophen 1 tab 04/18/22 20:45 04/28/22 08:01 Hydrocodone/Acetaminophen (*Crx) 5-325 Mg Tablet PO 1 tab Q4H PRN Administration Pain Rated 4-6 Ascorbic Acid 500 mg 04/21/22 09:00 04/28/22 08:03 Ascorbic Acid 500 Mg Tablet PO 500 mg DAILY REGINA Administration Calcium Carbonate 500 mg 04/20/22 17:00 04/28/22 08:02 Calcium/Vitamin D 500 Mg Tablet PO 05/20/22 16:59 500 mg BID REGINA Administration Carvedilol 6.25 mg 04/20/22 12:00 04/28/22 08:02 Carvedilol 6.25 Mg Tablet PO 6.25 mg Q12HR REGINA Administration Duloxetine HCl 60 mg 04/20/22 12:00 04/28/22 08:02 Duloxetine Hcl 60 Mg Capsule.Dr PO 60 mg DAILY REGINA Administration Famotidine 20 mg 04/19/22 09:00 04/28/22 08:02 Famotidine 20 Mg Tablet PO 20 m
--- NOTE | 2022-04-28 17:44 | WPDANESPN ---
Anes - Prog Note Post-Op Date/Time: 04/28/22 17:45 Vital Signs: Last Vital Signs Temp 36.9 C 04/28/22 13:42 Pulse 108 H 04/28/22 13:42 Resp 20 04/28/22 13:42 BP 108/56 L 04/28/22 13:42 Pulse Ox 100 04/28/22 13:42 O2 Del Method Room Air 04/28/22 08:16 O2 Flow Rate 2 04/23/22 09:15 Pain Score (VAS): 0 I/O: Intake & Output 04/28/22 04/28/22 04/28/22 07:59 15:59 23:59 Intake Total 290 Output Total 650 Balance -650 290 Laboratory Tests 04/28/22 04:50 04/28/22 04:50 04/27/22 04/28/22 04/28/22 17:36 04:50 04:50 WBC 10.4 H RBC 2.80 L Hgb 7.5 L Hct 25.1 L MCV 89.6 MCH 26.8 MCHC 29.9 L RDW 20.3 H Plt Count 242 MPV 9.1 Sodium 139 Potassium 3.4 Chloride 111 H Carbon Dioxide 23 Anion Gap 5 L BUN 15 Creatinine 1.80 H Estim Creat Clear Calc 22 Estimated GFR 27 L Glucose 90 Calcium 8.1 L Magnesium 2.0 Total Bilirubin 0.4 AST 19 ALT 12 Alkaline Phosphatase 105 Total Protein 6.0 L Albumin 2.9 L Urine Color Light yellow Urine Appearance Cloudy H Urine pH 6.0 Ur Specific [place] 1.015 Urine Protein 2+ H Urine Glucose (UA) Negative Urine Ketones Negative Ur Blood (Man) 3+ H Urine Nitrate Positive Urine Bilirubin Negative Urine Urobilinogen 0.2 Ur Leukocyte Esterase 3+ H Urine RBC >75 H Urine WBC >75 H Urine WBC Clumps Present H Ur Squamous Epith Cells Rare Urine Bacteria 1+ H Urine Mucus Rare Patient Feedback: Patient satisfied with anesthetic care.
[2022-04-28 20:00] VITALS: PULSE 100; RESP 16; O2SAT 100
[2022-04-28 20:17] VITALS: PULSE 82
[2022-04-28] MEDS: LORATADINE 10 MG TABLET PO (20:17)
[2022-04-28] MEDS: QUEtiapine FUMARATE 25 MG TABLET PO (20:17)
[2022-04-28] MEDS: TOLNAFTATE 1% POWDER 45 GM BTL 1 APPLIC TOPICAL (20:18)
[2022-04-28 21:05] VITALS: BP 106/74; PULSE 100; RESP 16; TEMP 36.4; O2SAT 100
[2022-04-29 05:34] LABS: Hematocrit 25.3 % (37.0-47.0); Hemoglobin 7.6 g/dL (12.0-15.0); Mean Corpuscular Hemoglobin 27.1 pg (26-34); Mean Corpuscular Volume 90.4 fl (80-100); Mean Platelet Volume 9.2 fl (7.4-10.4); Platelet Count Result 250 k/mm3 (150-375); Red Cell Distribution Width 20.5 % (11.5-14.5); White Blood Count 9.7 K/mm3 (4.5-10.0)
[2022-04-29 05:53] LABS: Alanine Aminotransferase 12 U/L (6-35); Albumin Level 3.1 g/dL (3.5-5.1); Alkaline Phosphatase 112 U/L (38-126); Anion Gap 6 mmol/L (8-16); Aspartate Amino Transferase 20 U/L (14-36); Bilirubin,Total 0.4 mg/dL (0.2-1.3); Blood Urea Nitrogen 17 mg/dL (7-17); Calcium 8.2 mg/dL (8.4-10.2); Carbon Dioxide 25 mmol/L (22-30); Chloride 109 mmol/L (98-107); Estimated CRCL calculation 21 ml/min; Estimated Glomerular Filt Rate 25; Glucose 97 mg/dL (65-110); Potassium 3.8 mmol/L (3.4-5.0); Sodium 140 mmol/L (137-145)
[2022-04-29 06:00] VITALS: BP 122/65; PULSE 103; RESP 12; TEMP 36.7; O2SAT 99
[2022-04-29] MEDS: FOLIC ACID 1 MG TABLET PO (09:56)
[2022-04-29] MEDS: ASCORBIC ACID 500 MG TABLET PO (09:56)
[2022-04-29 09:57] VITALS: PULSE 98
[2022-04-29] MEDS: LACTULOSE 20 GM/30 ML UDC PO (09:57)
[2022-04-29] MEDS: MULTIVITAMINS THERAPEUTIC TAB (*BKC) 1 TABLET PO (09:57)
[2022-04-29] MEDS: DULoxetine HCL 60 MG CAPSULE.DR PO (09:57)
[2022-04-29] MEDS: MAGNESIUM OXIDE 400 MG TABLET PO (09:57)
[2022-04-29] MEDS: carvediloL 6.25 MG TABLET PO ×2 (09:57→20:08)
[2022-04-29] MEDS: FAMOTIDINE 20 MG TABLET PO ×2 (09:57→20:08)
[2022-04-29] MEDS: PANTOPRAZOLE 40 MG TABLET PO ×2 (09:58→20:08)
[2022-04-29] MEDS: polyethylene glycoL 3350 17 GM POWD.PACK PO (09:58)
[2022-04-29] MEDS: TOLNAFTATE 1% POWDER 45 GM BTL 1 APPLIC TOPICAL ×2 (09:58→20:08)
[2022-04-29] MEDS: FERROUS SULFATE 324 MG TABLET PO (12:29)
[2022-04-29 14:00] VITALS: BP 105/47; PULSE 99; RESP 18; TEMP 37.2; O2SAT 98
--- NOTE | 2022-04-29 15:31 | PM.IMPN ---
Progress Note: A&P Assessment and Plan (1) MANISHA (acute kidney injury): Code(s): N17.9 - Acute kidney failure, unspecified Status: Acute Assessment and Plan: Acute and of chronic renal failure most likely multifactorial related to dehydration UTI and diuretics. Baseline creatinine 1.6. Down to baseline now History of CHF closely monitor fluid balance. Admission creatinine of 3.6. stopped IV fluid 04/26/2022 Creatinine 2 slightly above from yesterday at 1.6 the her creatinine ranged between high 1s to low 2s in the past. recheck with stable creatinine (2) Sepsis: Code(s): A41.9 - Sepsis, unspecified organism Status: Acute Assessment and Plan: Secondary to UTI rule out obstructive uropathy Broad-spectrum IV antibiotic Zosyn Started on 04/18/2022. 04/22/2022. urinalysis with >75 wbc and rbc. repeat urine culture with mixed genital uzair isolated. Initiated IV ceftriaxone. Probably related to catheter. Looks like she has indwelling catheter. Will this changed. WBC count has been normal however confusion do persist Urine culture negative Blood culture x2 negative (3) ANNE and COPD overlap syndrome: Code(s): G47.33 - Obstructive sleep apnea (adult) (pediatric); J44.9 - Chronic obstructive pulmonary disease, unspecified Status: Acute Assessment and Plan: Stable resume home medication (4) Aortic stenosis: Qualifiers: Cardiac valve disease etiology: etiology unspecified Qualified Code(s): I35.0 - Nonrheumatic aortic (valve) stenosis Code(s): I35.0 - Nonrheumatic aortic (valve) stenosis Status: Acute Assessment and Plan: Continue to monitor (5) Hypertension: Qualifiers: Hypertension type: essential hypertension Qualified Code(s): I10 - Essential (primary) hypertension Code(s): I10 - Essential (primary) hypertension Status: Acute Assessment and Plan: blood pressure stable . Blood pressure medication on hold due to relative hypotension (6) Congestive heart failure: Code(s): I50.9 - Heart failure, unspecified Status: Acute Assessment and Plan: Monitor closely for fluid overload (7) Hypothyroidism: Qualifiers: Hypothyroidism type: unspecified Qualified Code(s): E03.9 - Hypothyroidism, unspecified Code(s): E03.9 - Hypothyroidism, unspecified Status: Chronic Assessment and Plan: resume home medication (8) Lower extremity edema: Code(s): R60.0 - Localized edema Status: Acute Assessment and Plan: Monitor Plan sterile coral colitis with fecal impaction. Received suppository 04/21 patient 2 BMs seen by continue Dulcolax repeat KUB moderate stool repeat KUB 04/24 persistent fecal status post disimpaction 04/24/2022. Repeat check x-ray abdomen with presence of large stool in the rectum. s/p repeat disimpaction 04/27/2022. xray 04/28 with improvement in fecal impaction. Acute on chronic anemia possible GI bleed however no madyson bleeding noted. [facility] resident patient is a total care unable to participate in PT OT Code status full code Moderate to severe aortic valve stenosis DVT prophylaxis on apixaban Subjective Date/time seen: 04/29/22 15:31 Interval history: Chart reviewed. Presented with altered mental status and weakness related to sepsis with UTI related to indwelling Colindres catheter. She was started on broad-spectrum antibiotics. MANISHA with admission 3 6. Underlying chronic kidney disease. . Patient remains afebrile. Blood pressure stable. Condition H&H 8.6 which is about baseline. Dip to 6.9 on 04/21/2022. Creatinine has continued to improve since then down to 1.6 which is about his baseline. CT on admission showed fecal impaction with early findings of stercoral colitis. GI has been on board. Urine culture with mixed genital uzair. Blood culture x2 is negative. Fecal Disimpaction was done 04/25/2022 rubén
[2022-04-29 20:08] VITALS: PULSE 71
[2022-04-29] MEDS: LORATADINE 10 MG TABLET PO (20:08)
[2022-04-29] MEDS: QUEtiapine FUMARATE 25 MG TABLET PO (20:08)
[2022-04-29 20:45] VITALS: BP 110/53; PULSE 71; RESP 16; TEMP 36.6; O2SAT 95
[2022-04-30 05:17] LABS: Hematocrit 25.7 % (37.0-47.0); Hemoglobin 7.9 g/dL (12.0-15.0); Mean Corpuscular HGB Conc 30.7 g/dl (32-36); Mean Corpuscular Hemoglobin 27.7 pg (26-34); Mean Corpuscular Volume 90.2 fl (80-100); Mean Platelet Volume 9.2 fl (7.4-10.4); Platelet Count Result 261 k/mm3 (150-375); Red Blood Count 2.85 M/mm3 (4.2-5.4); Red Cell Distribution Width 20.6 % (11.5-14.5); White Blood Count 9.7 K/mm3 (4.5-10.0)
[2022-04-30 05:27] LABS: Alanine Aminotransferase 12 U/L (6-35); Albumin Level 3.3 g/dL (3.5-5.1); Alkaline Phosphatase 114 U/L (38-126); Anion Gap 5 mmol/L (8-16); Aspartate Amino Transferase 20 U/L (14-36); Bilirubin,Total 0.4 mg/dL (0.2-1.3); Blood Urea Nitrogen 20 mg/dL (7-17); Calcium 8.4 mg/dL (8.4-10.2); Carbon Dioxide 27 mmol/L (22-30); Chloride 105 mmol/L (98-107); Estimated CRCL calculation 22 ml/min; Estimated Glomerular Filt Rate 27; Glucose 103 mg/dL (65-110); Magnesium 1.9 mg/dL (1.6-2.3); Potassium 3.8 mmol/L (3.4-5.0); Sodium 137 mmol/L (137-145)
[2022-04-30 05:35] VITALS: BP 124/67; PULSE 106; RESP 16; TEMP 36.7; O2SAT 97
--- NOTE | 2022-04-30 09:16 | PC.NURSE ---
pt refusing medications and breakfast at this time, will continue to encourage her
[2022-04-30 10:21] VITALS: PULSE 100
[2022-04-30] MEDS: PANTOPRAZOLE 40 MG TABLET PO ×2 (10:21→20:31)
[2022-04-30] MEDS: carvediloL 6.25 MG TABLET PO ×2 (10:21→20:30)
[2022-04-30] MEDS: MULTIVITAMINS THERAPEUTIC TAB (*BKC) 1 TABLET PO (10:21)
[2022-04-30] MEDS: FAMOTIDINE 20 MG TABLET PO ×2 (10:21→20:30)
[2022-04-30] MEDS: DULoxetine HCL 60 MG CAPSULE.DR PO (10:21)
[2022-04-30] MEDS: ASCORBIC ACID 500 MG TABLET PO (10:22)
[2022-04-30] MEDS: MAGNESIUM OXIDE 400 MG TABLET PO (10:22)
[2022-04-30] MEDS: FOLIC ACID 1 MG TABLET PO (10:22)
[2022-04-30] MEDS: LACTULOSE 20 GM/30 ML UDC PO (10:23)
[2022-04-30] MEDS: polyethylene glycoL 3350 17 GM POWD.PACK PO (10:23)
[2022-04-30] MEDS: TOLNAFTATE 1% POWDER 45 GM BTL 1 APPLIC TOPICAL ×2 (10:23→20:31)
[2022-04-30] MEDS: FERROUS SULFATE 324 MG TABLET PO (12:26)
[2022-04-30 14:15] VITALS: BP 118/52; PULSE 104; RESP 20; TEMP 36.6; O2SAT 96
--- NOTE | 2022-04-30 14:16 | PM.IMPN ---
Progress Note: A&P Assessment and Plan (1) MANISHA (acute kidney injury): Code(s): N17.9 - Acute kidney failure, unspecified Status: Acute Assessment and Plan: Acute and of chronic renal failure most likely multifactorial related to dehydration UTI and diuretics. Baseline creatinine 1.6. Down to baseline now History of CHF closely monitor fluid balance. Admission creatinine of 3.6. stopped IV fluid 04/26/2022 Creatinine 2 slightly above from yesterday at 1.6 the her creatinine ranged between high 1s to low 2s in the past. recheck with stable creatinine (2) Sepsis: Code(s): A41.9 - Sepsis, unspecified organism Status: Acute Assessment and Plan: Secondary to UTI rule out obstructive uropathy Broad-spectrum IV antibiotic Zosyn Started on 04/18/2022. 04/22/2022. urinalysis with >75 wbc and rbc. repeat urine culture with mixed genital uzair isolated. Initiated IV ceftriaxone. Probably related to catheter. Looks like she has indwelling catheter. was changed on admission, however with fecal impaction , it seems like its contaminated and cathteter changed again. culture did not WBC count has been normal however confusion do persist Urine culture negative Blood culture x2 negative (3) ANNE and COPD overlap syndrome: Code(s): G47.33 - Obstructive sleep apnea (adult) (pediatric); J44.9 - Chronic obstructive pulmonary disease, unspecified Status: Acute Assessment and Plan: Stable resume home medication (4) Aortic stenosis: Qualifiers: Cardiac valve disease etiology: etiology unspecified Qualified Code(s): I35.0 - Nonrheumatic aortic (valve) stenosis Code(s): I35.0 - Nonrheumatic aortic (valve) stenosis Status: Acute Assessment and Plan: Continue to monitor (5) Hypertension: Qualifiers: Hypertension type: essential hypertension Qualified Code(s): I10 - Essential (primary) hypertension Code(s): I10 - Essential (primary) hypertension Status: Acute Assessment and Plan: blood pressure stable . Blood pressure medication on hold due to relative hypotension (6) Congestive heart failure: Code(s): I50.9 - Heart failure, unspecified Status: Acute Assessment and Plan: Monitor closely for fluid overload (7) Hypothyroidism: Qualifiers: Hypothyroidism type: unspecified Qualified Code(s): E03.9 - Hypothyroidism, unspecified Code(s): E03.9 - Hypothyroidism, unspecified Status: Chronic Assessment and Plan: resume home medication (8) Lower extremity edema: Code(s): R60.0 - Localized edema Status: Acute Assessment and Plan: Monitor Plan sterile coral colitis with fecal impaction. Received suppository 04/21 patient 2 BMs seen by continue Dulcolax repeat KUB moderate stool repeat KUB 04/24 persistent fecal status post disimpaction 04/24/2022. Repeat check x-ray abdomen with presence of large stool in the rectum. s/p repeat disimpaction 04/27/2022. xray 04/28 with improvement in fecal impaction. Acute on chronic anemia possible GI bleed however no madyson bleeding noted. care home resident patient is a total care unable to participate in PT OT Code status full code Moderate to severe aortic valve stenosis DVT prophylaxis on apixaban. discussed with nursing [id number]/30/2022, apixaban restarted in oct for ?stroke which is what she had in 2019 prior tot [facility] placment. unsure the reason for apixaban, but if need be, will need lower dose of apixaban due to her renal function. restart apixaban. Subjective Date/time seen: 04/30/22 14:16 Interval history: Chart reviewed. Presented with altered mental status and weakness related to sepsis with UTI related to indwelling Colindres catheter. She was started on broad-spectrum antibiotics. MANISHA with admission 3 6. Underlying chronic kidney disease. . Patient remains afebrile. Blood pressure stable. Condition
[2022-04-30] MEDS: HYDROcodone/acetaminophen (*CRX) 5-325 MG TABLET 1 TAB PO (17:07)
[2022-04-30 20:30] VITALS: PULSE 82
[2022-04-30] MEDS: LORATADINE 10 MG TABLET PO (20:30)
[2022-04-30] MEDS: APIXABAN 2.5 MG TABLET PO (20:30)
[2022-04-30] MEDS: QUEtiapine FUMARATE 25 MG TABLET PO (20:31)
[2022-04-30 20:37] VITALS: BP 114/55; PULSE 107; RESP 16; TEMP 36.5; O2SAT 99
[2022-05-01 05:41] LABS: Hematocrit 25.1 % (37.0-47.0); Hemoglobin 7.4 g/dL (12.0-15.0); Mean Corpuscular HGB Conc 29.5 g/dl (32-36); Mean Corpuscular Hemoglobin 26.7 pg (26-34); Mean Corpuscular Volume 90.6 fl (80-100); Mean Platelet Volume 9.2 fl (7.4-10.4); Platelet Count Result 271 k/mm3 (150-375); Red Blood Count 2.77 M/mm3 (4.2-5.4); Red Cell Distribution Width 20.6 % (11.5-14.5); White Blood Count 9.6 K/mm3 (4.5-10.0)
[2022-05-01 06:00] VITALS: BP 119/64; PULSE 106; RESP 16; TEMP 36.4; O2SAT 97
[2022-05-01 06:01] LABS: Alanine Aminotransferase 13 U/L (6-35); Albumin Level 3.2 g/dL (3.5-5.1); Alkaline Phosphatase 111 U/L (38-126); Anion Gap 3 mmol/L (8-16); Aspartate Amino Transferase 21 U/L (14-36); Bilirubin,Total 0.4 mg/dL (0.2-1.3); Blood Urea Nitrogen 23 mg/dL (7-17); Calcium 8.1 mg/dL (8.4-10.2); Carbon Dioxide 27 mmol/L (22-30); Chloride 103 mmol/L (98-107); Estimated CRCL calculation 22 ml/min; Estimated Glomerular Filt Rate 27; Glucose 95 mg/dL (65-110); Magnesium 1.9 mg/dL (1.6-2.3); Potassium 3.7 mmol/L (3.4-5.0); Sodium 133 mmol/L (137-145)
[2022-05-01 09:11] VITALS: PULSE 88
[2022-05-01] MEDS: carvediloL 6.25 MG TABLET PO (09:11)
[2022-05-01] MEDS: DULoxetine HCL 60 MG CAPSULE.DR PO (09:11)
[2022-05-01] MEDS: FOLIC ACID 1 MG TABLET PO (09:12)
[2022-05-01] MEDS: MULTIVITAMINS THERAPEUTIC TAB (*BKC) 1 TABLET PO (09:12)
[2022-05-01] MEDS: LACTULOSE 20 GM/30 ML UDC PO (09:12)
[2022-05-01] MEDS: PANTOPRAZOLE 40 MG TABLET PO (09:12)
[2022-05-01] MEDS: MAGNESIUM OXIDE 400 MG TABLET PO (09:12)
[2022-05-01] MEDS: FAMOTIDINE 20 MG TABLET PO (09:13)
[2022-05-01] MEDS: polyethylene glycoL 3350 17 GM POWD.PACK PO (09:13)
[2022-05-01] MEDS: APIXABAN 2.5 MG TABLET PO (09:13)
[2022-05-01] MEDS: ASCORBIC ACID 500 MG TABLET PO (09:13)
[2022-05-01 09:14] VITALS: RESP 16; O2SAT 97
[2022-05-01] MEDS: TOLNAFTATE 1% POWDER 45 GM BTL 1 APPLIC TOPICAL (09:14)
--- NOTE | 2022-05-01 11:49 | PM.DS ---
DS: Admitting Diagnosis Discharge Date 05/01/2022 Admitting Diagnosis GENERALIZED WEAKNESS CONFUSION ABDOMINAL PAIN DS: Discharge Diagnosis Discharge Diagnosis (1) MANISHA (acute kidney injury): Code(s): N17.9 - Acute kidney failure, unspecified Status: Acute (2) Sepsis: Code(s): A41.9 - Sepsis, unspecified organism Status: Acute (3) ANNE and COPD overlap syndrome: Code(s): G47.33 - Obstructive sleep apnea (adult) (pediatric); J44.9 - Chronic obstructive pulmonary disease, unspecified Status: Acute (4) Aortic stenosis: Qualifiers: Cardiac valve disease etiology: etiology unspecified Qualified Code(s): I35.0 - Nonrheumatic aortic (valve) stenosis Code(s): I35.0 - Nonrheumatic aortic (valve) stenosis Status: Acute (5) Hypertension: Qualifiers: Hypertension type: essential hypertension Qualified Code(s): I10 - Essential (primary) hypertension Code(s): I10 - Essential (primary) hypertension Status: Acute (6) Congestive heart failure: Code(s): I50.9 - Heart failure, unspecified Status: Acute (7) Hypothyroidism: Qualifiers: Hypothyroidism type: unspecified Qualified Code(s): E03.9 - Hypothyroidism, unspecified Code(s): E03.9 - Hypothyroidism, unspecified Status: Chronic (8) Lower extremity edema: Code(s): R60.0 - Localized edema Status: Acute DS: Summary Hospital Course Hospital Course: # MANISHA (acute kidney injury) ON CHRONIC RENAL FAILURE STAGE 3: Acute and of chronic renal failure most likely multifactorial related to dehydration UTI and diuretics.? Baseline creatinine 1.6 -2.? Down to baseline now History of CHF closely monitor fluid balance.? Admission creatinine of 3.6. ?stopped IV fluid 04/26/2022 BACK TO BASELINE BY THE TIME DISCHARGE # SEPSIS: Secondary to UTI rule out obstructive uropathy . Broad-spectrum IV antibiotic Zosyn? Started on 04/18/2022 Till 04/22/2022.? urinalysis with >75 wbc and rbc. repeat urine culture with mixed genital uzair isolated.? Initiated IV ceftriaxone.? Probably related to catheter and contaminated and hence catheter was exchanged. Antibiotics was stopped as UA likely is a contaminated sample. Urine culture negative Blood culture x2 negative # ANNE and COPD overlap syndrome: Stable resume home medication # aortic stenosis: Continue to monitor # hypertension: ?blood pressure Stabilized since hospitalization # congestive heart failure: Monitor closely for fluid overload # hypothyroidism: ?resume home medication # lower extremity edema: Stable and Monitor #?sterile coral colitis with fecal impaction.? Received suppository 04/21 patient 2 BMs seen by continue Dulcolax repeat KUB moderate stool repeat KUB 04/24 persistent fecal status post disimpaction 04/24/2022.? Repeat check x-ray abdomen with presence of large stool in the rectum. s/p repeat disimpaction 04/27/2022. xray 04/28 with improvement in fecal impaction. #Acute on chronic anemia possible GI bleed however no madyson bleeding noted. #assisted resident patient is a total care unable to participate in PT OT # Code status full code #Moderate to severe aortic valve stenosis # DVT prophylaxis on apixaban. discussed with nursing [id number]/30/2022, apixaban restarted in oct for ?stroke which is what she had in 2019 prior tot [facility] placment. unsure the reason for apixaban, but if need be, will need lower dose of apixaban due to her renal function. restart apixaban but at lower does 2.5 mg b.i.d.. Time Spent with Patient Time attestation: Total time spent providing and/or coordinating discharge services: 45 minutes Exam Narrative: moderately obese Patient is comfortable, NAD HEENT: eyes are clear and none icteric LUNGS: normal respiratory effort ABD: distended Lower extremities: no edema Colindres in place with clear urine in bag SKIN: nonjaundiced Neuro: grossly intact aw
[2022-05-01] MEDS: FERROUS SULFATE 324 MG TABLET PO (12:05)
[2022-05-01] MEDS: HYDROcodone/acetaminophen (*CRX) 5-325 MG TABLET 1 TAB PO (13:51)
[2022-05-01 14:00] VITALS: BP 100/51; PULSE 105; RESP 18; TEMP 36.5; O2SAT 98
== END 2022-05-01 15:10 | DRG 698 ==
LOC: ANHED 21:25 → ANHIMU 04-19 00:17 → ANH2MED 04-19 22:16
PROVIDERS: Family Medicine; Internal Medicine Gastroenterology; Admitting Provider Internal Medicine; Emergency Provider Emergency Medicine; PCP Internal Medicine; Visit Provider Internal Medicine
PROC: 0DCP7ZZ Extirpation of Matter from Rectum, Via Natural or Artificial Opening (ICD-10-PCS; principal; 2022-04-25 14:15)
DX: T83.511A Infection and inflammatory reaction due to indwelling urethral catheter, initial encounter (principal); A41.9 Sepsis, unspecified organism; N17.9 Acute kidney failure, unspecified; I13.0 Hypertensive heart and chronic kidney disease with heart failure and stage 1 through stage 4 chronic kidney disease, or unspecified chronic kidney disease; N39.0 Urinary tract infection, site not specified; E03.9 Hypothyroidism, unspecified; K52.9 Noninfective gastroenteritis and colitis, unspecified; N18.30 Chronic kidney disease, stage 3 unspecified; I50.9 Heart failure, unspecified; F41.8 Other specified anxiety disorders; E66.01 Morbid (severe) obesity due to excess calories; I35.0 Nonrheumatic aortic (valve) stenosis; K56.41 Fecal impaction; Z20.822 Contact with and (suspected) exposure to COVID-19; Z74.01 Bed confinement status; Z68.34 Body mass index [BMI] 34.0-34.9, adult; Z88.2 Allergy status to sulfonamides; Z87.891 Personal history of nicotine dependence; Z79.899 Other long term (current) drug therapy; Z82.49 Family history of ischemic heart disease and other diseases of the circulatory system
CPT/HCPCS: 36415; 71045; 74018; 74176; 80053; 81001; 81050; 82274; 82550; 82570; 82607; 82728; 82746; 82948; 83540; 83550; 83605; 83735; 83935; 84133; 84145; 84156; 84300; 85014; 85018; 85025; 85027; 85610; 85730; 87040; 87086; 87088; 87636; 93005; 96361; 96365; 96366; 96367; 96372; 96375; 99285; A9270; G0378; J0696; J1644; J2270; J2370; J2543; J2704; J3475; J7030; J7120

== ENCOUNTER 2022-08-31 00:56 | Day surgery (SDC) | payer MEDICARE, SELFPAY ==
--- NOTE | 2022-08-18 09:13 | SUR.PREOP ---
Paper documentation exists on this patient due to [employer] [facility] downtime on 08/16/22
--- NOTE | 2022-08-21 07:21 | PM.HPGS ---
History of Present Illness History of Present Illness Consent: Risks, benefits, and alternatives have been discussed and questions answered. Patient agrees to proceed with procedure. Chief complaint: right hydronephrosis Narrative: Dasia Hernandez is a 81 year old female who has a difficult urological problem. She has fixed lower extremities with very limited mobility. 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 Because of her limited lower extremity mobility catheter changes or extremely difficult. After discussion of options she is elected to proceed with attempted placement of a suprapubic catheter. Review of Systems Cardiovascular: Cardiovascular: Denies chest pain, Denies lightheadedness, Denies palpitations and Denies dyspnea Respiratory: Respiratory: Denies dyspnea Gastrointestinal: Gastrointestinal: Denies diarrhea, Denies nausea and Denies vomiting Genitourinary: Genitourinary: Denies hematuria and Denies dysuria Endocrine: Endocrine: Denies palpitations [facility] Past Medical History Medical History Aortic stenosis Reportedly she has severe aortic stenosis and is followed by a dish network installer in [place]. Apparently she has been deemed not a surgical candidate at this time due to her other medical conditions. Brain aneurysm Chronic obstructive pulmonary disease CKD (chronic kidney disease) stage IV Congestive heart failure Depression with anxiety Hypertension Hypothyroidism Iron deficiency anemia Morbid obesity ANNE and COPD overlap syndrome Surgical History Surgical History History of craniotomy Either for an aneurysm or AVM, was difficult to understand what she was saying. History of hysterectomy Family History Family History Father Acute myocardial infarction Social History Social History Social History: The patient lives at [facility] in [place]. 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 She used to ?smoke a lot? and quit several years ago. She denies alcohol and illicit substance use. Her son, Bal Hernandez, is her surrogate decision maker. She wishes to be a full code. Smoking packs per day: 1 Smoking cigarettes per day: 20.0 Years smoked: 10 Smoking pack-years: 10.00 Smoking status: Never smoker Tobacco type: cigarettes Second hand tobacco smoke exposure: No Smoking end date: 03/05/79 Alcohol intake: never Substance use: never Substance use type: does not use Living arrangements: group home Additional living arrangements comments: [facility] [phone] Gender identity (if verbalized by the patient): Female Sexual Orientation (if Verbalized by the Patient): Straight or Heterosexual Spiritual care concerns: No Meds Home Medications and Allergies Home Medications Medication Instructions Recorded Confirmed Type calcium carbonate 600 mg-vitamin 1 tablet PO BID 09/02/19 08/11/22 History D3 20 mcg (800 unit) chewable tablet (Caltrate 600 plus D) duloxetine 30 mg capsule,delayed 60 mg PO DAILY 09/02/19 08/11/22 History release glucosamine-chondroitin 250 mg-200 1 tablet PO DAILY 09/02/19 08/11/22 History mg tablet (Osteo Bi-Flex) carvedilol 6.25 mg tablet (Coreg) 6.25 mg PO Q12HR 30 days #60 tabs 09/09/19 08/11/22 Rx ascorbic acid (vitamin C) 500 mg 500 mg PO DAILY 03/30/21 08/11/22 History tablet ferrous sulfate 325 mg (65 mg 325 mg PO DAILY 03/30/21 08/11/22 History iron) tablet folic acid 1 mg tablet 1 mg PO DAILY 03/30/21 08/11/22 History quetiapine 25 mg tablet 25 mg PO HS 03/30/21 08/11/22 History amino acids-protein hydrolysate 17 1 ea PO BID 12/14/21 08/11/22 History gram-100 kcal/30 mL oral liquid (Pro-Stat AWC) bisacodyl 10 mg rectal suppository 10 mg RECTAL
--- NOTE | 2022-08-24 10:40 | PC.NURSE ---
Report to the Outpatient Waiting Room, entrance under the green pavilion located off [facility], at time _0915 on date __08/31/22 . Planned Procedure Time: _1115 . Time changes happen often and if your time is changed the preop area will call you the afternoon before. - You and your visitor will be asked to self-screen and do not enter if you have any COVID symptoms. - A mask is optional within the hospital at this time. Patients may have clear liquids (water, carbonated beverages, clear teas, apple juice) until 3 hours prior to surgery with a maximum of 20 ounces. - No food from midnight until time of surgery - Infants may have breast milk until 4 hours before surgery, infant formula 6 hours prior to surgery. - Children will be allowed to drink immediately following surgery. If applicable, please bring a bottle or sippy cup to assist with drinking. Juice, water, soda, and popsicles are readily available. For infants on formula, please bring formula the day of surgery. Pacifiers are allowed. Take the following medications with a SIP of water the morning of surgery: ___COREG AND CYMBALTA DO NOT STOP ANY OF YOUR OTHER PRESCRIPTION MEDICATIONS PRIOR TO SURGERY ?EXCEPT THE FOLLOWING Medications to discontinue per physician _ARIANAIS 2 DAYS PRE OP.LAST DOSE 08/28/22. ALL VITAMINS AND SUPPLEMENTS 3 DAYS PRE OP.LAST DOSE 08/27/22 Please no make-up, nail luxembourgish, hairspray, perfume, deodorant, or body powder the day of surgery. No jewelry (including any body piercings) or valuables the day of surgery, leave them at home. Please take a shower or bath the night before, or the morning of, surgery with an antibacterial soap. Wear comfortable, loose fitting clothing. Children are encouraged to wear pajamas. - Jewelry must be removed prior to entering the operating room. Rings and piercings that are not removed may be cut off. - The hospital will not accept responsibility for valuables. - Please leave all valuables, including medications, at home the day of surgery. If you are going home after surgery, a licensed power screwdriver operator must drive you home. - NO public transportation without another adult if you receive anesthesia. - We recommend that an adult stay with you for 24 hours following discharge. - We also recommend that you do not drive, make important decision, drink alcoholic beverages, or take any drugs that were not prescribed by your health care provider for at least 24 hours after your discharge time. For Pediatric surgeries, we recommend two adults accompany the child home. Follow any additional instructions given to you from your surgeon. If you or anyone in your household have experienced Covid symptoms in the past week, please notify your surgeon or the nurse liaison at the phone number below for possible testing. Telephone instructions given to _PT'S DAUGHTER JOSY AND FAXED TO [facility] 08/24/22 AT 1045 ATTENTION MICHELLE and asked if any additional questions and then verbalized understanding. Patient advised to call surgeon office or pre surgery nurse liaison [phone] if any additional questions.
[2022-08-24 10:44] VITALS: BMI 42.0
[2022-08-31] VITALS (9 sets, daily range): BP systolic 82–106; BP diastolic 36–54; PULSE 84–92; RESP 14–21; TEMP 36.6–37.4; O2SAT 95–100
--- NOTE | ~2022-08-31 | XR_ITS ---
EXAMINATION: XR retrograde pyelo w/stent RT DATE: 08/31/2022 12:30 INDICATION: Right ureteral stent placement TECHNIQUE: 2 fluoroscopic images of the abdomen and pelvis were obtained during procedure performed antonio Camargo. Radiologist was not present for the imaging or procedure. The amount of fluoroscopy lala e used during this procedure was 0.6 minutes. COMPARISON: CT dated 08/21/2022 FINDINGS: Images demonstrate a stent extending through the right ureter into an upper pole calyx of the right k idney and retrograde contrast injection opacifying the right renal collecting system. There appear to be lucent filling defects within the right renal pelvis corresponding to the stone seen on the prior CT. The stent remains in unchanged position on the subsequent image with clearance of the majority o f the injected contrast. IMPRESSION: 1. Renal stones in the right renal pelvis and right ureteral stent with partially formed loop in an u pper pole calyx of the right kidney with distal aspect of the stent extending below the inferior corry in of the field of imaging. See procedure note for further detail. Reviewed, dictated and finalized at location A. IMPRESSION: 1. Renal stones in the right renal pelvis and right ureteral stent with partial ly formed loop in an upper pole calyx of the right kidney with distal aspect of the stent extending below the inferior margin of the field of imaging. See pro cedure note for further detail.
--- NOTE | 2022-08-31 06:36 | WPDHPUPDATE1 ---
History and Physical Update Update Date/Time: 08/31/22 06:36 History and Physical has been reviewed, including an updated exam of the patient. There are NO changes in the patient's condition. Risks, benefits, and alternatives have been discussed and questions answered. Patient agrees to proceed with procedure.
[2022-08-31] MEDS: LACTATED RINGERS 1,000 ML 30 ML IV CONT (09:45)
--- NOTE | 2022-08-31 09:51 | SUR.PREOP ---
0950-DR. ANSARI AWARE OF B/P 88/36 AND AWARE DAUGHTER (POA) STATES PT'S NORMAL B/P IS 90 TO LOW 90S/30S-40S.
--- NOTE | 2022-08-31 10:06 | WPDANESEPPF ---
Anes - Initial Pre Proc Eval Procedure: Operation Date: 08/31/22 11:15 Proposed Procedures p Cystoscopy with Right Stent Exchange - Richard Camargo MD s Insertion Suprapubic Catheter - Richard Camargo MD Date/Time: 08/31/22 10:06 Surgeon: Richard Camargo MD Pre Op Diagnosis: right hydronephrosis Patient Data Age: 81 Gender: F Height: 1.42 m Weight: 88.5 kg Last Vital Signs Temp 37.4 C 08/31/22 09:26 Pulse 92 08/31/22 09:26 Resp 20 08/31/22 09:26 BP 88/36 L 08/31/22 09:26 Pulse Ox 97 08/31/22 09:26 O2 Del Method Room Air 08/31/22 09:26 Allergies Allergy/AdvReac Type Severity Reaction Status Date / Time pregabalin [From Lyrica] Allergy Unknown Unknown Verified 08/31/22 09:29 Sulfa (Sulfonamide Allergy Unknown Unknown Verified 08/31/22 09:29 Antibiotics) phenytoin [From Dilantin] AdvReac Mild Hives Verified 08/31/22 09:29 Home Medications Medication Instructions Recorded Confirmed Type calcium carbonate 600 mg-vitamin 1 tablet PO BID 09/02/19 08/24/22 History D3 20 mcg (800 unit) chewable tablet (Caltrate 600 plus D) duloxetine 30 mg capsule,delayed 60 mg PO DAILY 09/02/19 08/31/22 History release glucosamine-chondroitin 250 mg-200 1 tablet PO DAILY 09/02/19 08/24/22 History mg tablet (Osteo Bi-Flex) carvedilol 6.25 mg tablet (Coreg) 6.25 mg PO Q12HR 30 days #60 tabs 09/09/19 08/31/22 Rx ascorbic acid (vitamin C) 500 mg 500 mg PO DAILY 03/30/21 08/24/22 History tablet ferrous sulfate 325 mg (65 mg 325 mg PO DAILY 03/30/21 08/24/22 History iron) tablet folic acid 1 mg tablet 1 mg PO DAILY 03/30/21 08/24/22 History quetiapine 25 mg tablet 25 mg PO HS 03/30/21 08/24/22 History amino acids-protein hydrolysate 17 1 ea PO BID 12/14/21 08/24/22 History gram-100 kcal/30 mL oral liquid (Pro-Stat AWC) bisacodyl 10 mg rectal suppository 10 mg RECTAL DAILY PRN Constipation 12/14/21 08/24/22 History multivitamin 1 tablet PO DAILY 12/14/21 08/24/22 History polyethylene glycol 3350 17 17 g PO BID PRN Constipation 12/14/21 08/24/22 History gram/dose oral powder (Miralax) cetirizine 10 mg tablet (Zyrtec) 10 mg PO HS 04/19/22 08/24/22 History hydrocodone 5 mg-acetaminophen 325 1 tablet PO Q6H PRN Pain (Scale 04/19/22 08/24/22 History mg tablet Score 7-10) apixaban 5 mg tablet (Eliquis) 2.5 mg PO BID #30 tabs 05/01/22 08/31/22 Rx lactulose 20 gram/30 mL oral 20 g (30 mL) PO QAM #30 mL 05/01/22 08/24/22 Rx solution magnesium oxide 400 mg (241.3 mg 400 mg PO QAM #30 tabs 05/01/22 08/24/22 Rx magnesium) tablet omeprazole 40 mg capsule,delayed 40 mg PO DAILY 08/11/22 08/24/22 History release acetaminophen 500 mg tablet 500 mg PO BID PRN Pain 08/24/22 08/24/22 History Patient hx anesthesia problems: none Family hx anesthesia problems: none Results Review: All pre-operative results and documents have been reviewed as part of the pre-operative evaluation. [facility] Past Medical History Medical History Aortic stenosis Reportedly she has severe aortic stenosis and is followed by a transport manager in [place]. Apparently she has been deemed not a surgical candidate at this time due to her other medical conditions. Brain aneurysm Chronic obstructive pulmonary disease CKD (chronic kidney disease) stage IV Congestive heart failure Depression with anxiety Hypertension Hypothyroidism Iron deficiency anemia Morbid obesity ANNE and COPD overlap syndrome Surgical History Surgical History History of craniotomy Either for an aneurysm or AVM, was difficult to understand what she was saying. History of hysterectomy Family History Family History Father Acute myocardial infarction Social History Social History Social His
--- NOTE | 2022-08-31 12:33 | W.PM.PROC2 ---
Procedure Note - Detailed Date of Procedure 08/31/22 Pre-op Diagnosis Right hydronephrosis Post-op Diagnosis Same Procedure Performed Cystoscopy, right retrograde pyelography, right ureteral stent exchange, placement of a suprapubic catheter Surgeon Richard Camargo MD Anesthesia General Description of Procedure is a very challenging procedure because patient essentially has rigid fixed lower extremities from the waist down. This makes access to her urethra extremely difficult. I was able to navigate the urethra with the aid of a flexible cystoscope. I filled her bladder and placed a spinal needle just above the pubic symphysis. Aspiration throughout spinal needle placement showed no unusual findings of blood. I dilated the suprapubic tract over an 8 F dilator to 22 F. I then placed a 16 F [place] tip catheter in the bladder. The right ureteral stent was grasped. A 0.035 in glidewire was advanced in the right renal pelvis. Retrograde pyelography with a Ogema catheter was undertaken to ensure appropriate positioning of a new 4.8 F stent. Drains Yes Pathology None sent Complications No immediate complications Condition Stable
[2022-08-31] MEDS: fentaNYL CITRATE INJ (*CRX) 100 MCG/2 ML VIAL 25 MCG IV PUSH (13:18)
[2022-08-31] MEDS: oxyCODONE HCL (*CRX) 2.5 MG TAB IR PO (14:05)
[2022-08-31] MEDS: ONDANSETRON INJ 4 MG/2 ML VIAL IV PUSH (14:37)
--- NOTE | 2022-08-31 15:08 | SUR.PHASEII ---
pt transitioned to her recliner on the maxiair with 4 staff members help. the transition worked very well vs the timothy lift. pt is dressed, gardner emptied, and IV was taken out. pt daughter is at bedside and we are waiting on her ride from the [facility] for pick remover. pt baseline BP is 80 SBP. pt is resting comfortably in her recliner.
== END 2022-08-31 15:21 | disposition home or self-care (01) ==
PROVIDERS: PCP Internal Medicine; Visit Provider Urology
PROC: (CPT 52310; principal; 2022-08-31 11:15)
PROC: 0T9B30Z Drainage of Bladder with Drainage Device, Percutaneous Approach (ICD-10-PCS; CPT 51102; 2022-08-31 11:15)
DX: R33.9 Retention of urine, unspecified (principal); N13.30 Unspecified hydronephrosis; N20.0 Calculus of kidney; N31.2 Flaccid neuropathic bladder, not elsewhere classified; L89.90 Pressure ulcer of unspecified site, unspecified stage; I13.0 Hypertensive heart and chronic kidney disease with heart failure and stage 1 through stage 4 chronic kidney disease, or unspecified chronic kidney disease; I50.9 Heart failure, unspecified; N18.4 Chronic kidney disease, stage 4 (severe); E03.9 Hypothyroidism, unspecified; D50.9 Iron deficiency anemia, unspecified; J44.9 Chronic obstructive pulmonary disease, unspecified; G47.33 Obstructive sleep apnea (adult) (pediatric); I35.0 Nonrheumatic aortic (valve) stenosis; F41.8 Other specified anxiety disorders; E66.01 Morbid (severe) obesity due to excess calories; Z68.41 Body mass index [BMI] 40.0-44.9, adult; Z87.891 Personal history of nicotine dependence; Z79.01 Long term (current) use of anticoagulants
CPT/HCPCS: 52332; 51102; 74420; A9270; C1726; C1758; C1769; C2617; J2370; J2405; J2704; J3010; J7120; Q9966

== ENCOUNTER 2022-10-03 13:13 | Emergency (ER) | payer MEDICARE, SELFPAY ==
[2022-10-03 13:13] VITALS: BP 111/42; PULSE 105; RESP 20; TEMP 36.6; O2SAT 97
--- NOTE | 2022-10-03 13:45 | ED.GENADULT ---
HPI - General Adult General Chief complaint: Unspecified Stated complaint: suprapubic catheter clogged Time Seen by Provider: 10/03/22 13:41 History of Present Illness HPI narrative: Pt presents wtih suprapubic catheter not draining. NH staff said it was mucousy and now appears clogged. Catheter has not been changed yet and per family in room Dr Elder did not want nurse to do it the first itme. Related Data Home Medications Medication Instructions Recorded Confirmed calcium carbonate 600 mg-vitamin 1 tablet PO BID 09/02/19 08/24/22 D3 20 mcg (800 unit) chewable tablet (Caltrate 600 plus D) duloxetine 30 mg capsule,delayed 60 mg PO DAILY 09/02/19 08/31/22 release glucosamine-chondroitin 250 mg-200 1 tablet PO DAILY 09/02/19 08/24/22 mg tablet (Osteo Bi-Flex) ascorbic acid (vitamin C) 500 mg 500 mg PO DAILY 03/30/21 08/24/22 tablet ferrous sulfate 325 mg (65 mg 325 mg PO DAILY 03/30/21 08/24/22 iron) tablet folic acid 1 mg tablet 1 mg PO DAILY 03/30/21 08/24/22 quetiapine 25 mg tablet 25 mg PO HS 03/30/21 08/24/22 amino acids-protein hydrolysate 17 1 ea PO BID 12/14/21 08/24/22 gram-100 kcal/30 mL oral liquid (Pro-Stat AWC) bisacodyl 10 mg rectal suppository 10 mg RECTAL DAILY PRN Constipation 12/14/21 08/24/22 multivitamin 1 tablet PO DAILY 12/14/21 08/24/22 polyethylene glycol 3350 17 17 g PO BID PRN Constipation 12/14/21 08/24/22 gram/dose oral powder (Miralax) cetirizine 10 mg tablet (Zyrtec) 10 mg PO HS 04/19/22 08/24/22 hydrocodone 5 mg-acetaminophen 325 1 tablet PO Q6H PRN Pain (Scale 04/19/22 08/24/22 mg tablet Score 7-10) omeprazole 40 mg capsule,delayed 40 mg PO DAILY 08/11/22 08/24/22 release acetaminophen 500 mg tablet 500 mg PO BID PRN Pain 08/24/22 08/24/22 Allergies Allergy/AdvReac Type Severity Reaction Status Date / Time pregabalin [From Lyrica] Allergy Unknown Unknown Verified 10/03/22 13:23 Sulfa (Sulfonamide Allergy Unknown Unknown Verified 10/03/22 13:23 Antibiotics) phenytoin [From Dilantin] AdvReac Mild Hives Verified 10/03/22 13:23 Review of Systems Review of Systems: All systems reviewed & are unremarkable except as noted in HPI and below PMFSH Past Medical History Medical History Aortic stenosis Reportedly she has severe aortic stenosis and is followed by a tank car mechanic in [place]. Apparently she has been deemed not a surgical candidate at this time due to her other medical conditions. Brain aneurysm Chronic obstructive pulmonary disease CKD (chronic kidney disease) stage IV Congestive heart failure Depression with anxiety Hypertension Hypothyroidism Iron deficiency anemia Morbid obesity ANNE and COPD overlap syndrome Surgical History Surgical History History of craniotomy Either for an aneurysm or AVM, was difficult to understand what she was saying. History of hysterectomy Family History Family History Father Acute myocardial infarction Social History Social History Social History: The patient lives at [facility] in [place]. 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 She used to ?smoke a lot? and quit several years ago. She denies alcohol and illicit substance use. Her son, Bal Hernandez, is her surrogate decision maker. She wishes to be a full code. Smoking packs per day: 1 Smoking cigarettes per day: 20.0 Years smoked: 10 Smoking pack-years: 10.00 Smoking status: Former smoker Tobacco type: cigarettes Second hand tobacco smoke exposure: No Smoking end date: 03/05/78 Alcohol intake: never Substance use: never Substance use type: does not use Living arrangements: long-term Additional living arrangements comments: [facility] [phone] Gender identity (if verbali
[2022-10-03 14:15] LABS: Appearance Urine Turbid (Clear); Bacteria Urine 4+ /hpf; Bilirubin Urine Negative (Negative); Blood Urine 1+ (Negative); Calcium Oxalate Crystals Urine Present /hpf; Color Urine Yellow (Yellow); Glucose Urine UA 1+ mg/dL (Negative); Ketones Urine Negative (Negative); Leukocyte Esterase Ur 3+ LEU/UL (Negative); Need Manual Microscopic Reviewed; Nitrate Urine Negative (Negative); Non Pathogenic Casts >20; Protein Urine 3+ mg/dL (Negative); RBC Urine 21-50 /hpf (0-2); Specific Grav Ur 1.015 (1.001-1.035); Squamous Epithelial Cell Urine None seen /hpf (Few); Triple Phosphate Crystal Urine Present /hpf; WBC Urine 0-5 /hpf; pH Urine >=9.0 (5.0-9.0)
[2022-10-03 14:16] LABS: Add Urine Microscopic? YES
[2022-10-03 14:57] VITALS: BP 110/41; PULSE 98; RESP 18; TEMP 37.4; O2SAT 97
--- NOTE | 2022-10-03 16:33 | WPDURCON ---
Assessment and Plan Assessment and plan (1) Urinary retention: Code(s): R33.9 - Retention of urine, unspecified Status: Acute Assessment and Plan: prior suprapubic tube was removed. Only had 3 cc in the balloon. A new 16 Vincentian Colindres catheter was placed under sterile conditions. There was return approximately 50 cc fairly clear urine. Patient states that she was incontinent of some urine. 10 cc were placed in the balloon. She tolerated procedure well without any complications a we discharged back to custodial. They can resume monthly catheter changes there. Urology Consult Note HPI Date Seen: 10/03/22 Time Seen: 16:33 Requesting Physician: Emergency room Primary Care Provider: Cm Beauchamp, Consult Narrative Reason for consult: suprapubic catheter clogged Narrative: Dasia Hernandez is a 81 year old female who had a suprapubic catheter placed in the operating room by Dr. Camargo approximately a month ago. She resides in a custodial and the catheter clogged off. She is here for suprapubic catheter tube exchange Review of Systems Review of Systems: All systems reviewed & are unremarkable except as noted in HPI and below PMFSH Past Medical History Medical History Aortic stenosis Reportedly she has severe aortic stenosis and is followed by a ice cutter in [place]. Apparently she has been deemed not a surgical candidate at this time due to her other medical conditions. Brain aneurysm Chronic obstructive pulmonary disease CKD (chronic kidney disease) stage IV Congestive heart failure Depression with anxiety Hypertension Hypothyroidism Iron deficiency anemia Morbid obesity ANNE and COPD overlap syndrome Surgical History Surgical History History of craniotomy Either for an aneurysm or AVM, was difficult to understand what she was saying. History of hysterectomy Family History Family History Father Acute myocardial infarction Social History Social History Social History: The patient lives at [facility] in [place]. 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 She used to ?smoke a lot? and quit several years ago. She denies alcohol and illicit substance use. Her son, Bal Hernandez, is her surrogate decision maker. She wishes to be a full code. Smoking packs per day: 1 Smoking cigarettes per day: 20.0 Years smoked: 10 Smoking pack-years: 10.00 Smoking status: Former smoker Tobacco type: cigarettes Second hand tobacco smoke exposure: No Smoking end date: 03/05/78 Alcohol intake: never Substance use: never Substance use type: does not use Living arrangements: custodial Additional living arrangements comments: [facility] [phone] Gender identity (if verbalized by the patient): Female Sexual Orientation (if Verbalized by the Patient): Straight or Heterosexual Spiritual care concerns: No Meds Home Medications and Allergies Home Medications Medication Instructions Recorded Confirmed Type calcium carbonate 600 mg-vitamin 1 tablet PO BID 09/02/19 08/24/22 History D3 20 mcg (800 unit) chewable tablet (Caltrate 600 plus D) duloxetine 30 mg capsule,delayed 60 mg PO DAILY 09/02/19 08/31/22 History release glucosamine-chondroitin 250 mg-200 1 tablet PO DAILY 09/02/19 08/24/22 History mg tablet (Osteo Bi-Flex) carvedilol 6.25 mg tablet (Coreg) 6.25 mg PO Q12HR 30 days #60 tabs 09/09/19 08/31/22 Rx ascorbic acid (vitamin C) 500 mg 500 mg PO DAILY 03/30/21 08/24/22 History tablet ferrous sulfate 325 mg (65 mg 325 mg PO DAILY 03/30/21 08/24/22 History iron) tablet folic acid 1 mg tablet 1 mg PO DAILY 03/30/21 08/24/22 History quetiapine 25 mg tablet 25 mg PO HS 03/06
[2022-10-03 16:48] VITALS: BP 129/60; PULSE 96; RESP 15; O2SAT 97
--- NOTE | 2022-10-03 19:05 | PC.NURSE ---
This RN assumed care of patient. This RN took patient report from HANY Franks and HANY Gomez.
== END 2022-10-03 20:43 ==
PROVIDERS: Emergency Provider Emergency Medicine; PCP Internal Medicine
DX: T83.098A Other mechanical complication of other urinary catheter, initial encounter (principal); N39.0 Urinary tract infection, site not specified; Z87.891 Personal history of nicotine dependence; Y84.6 Urinary catheterization as the cause of abnormal reaction of the patient, or of later complication, without mention of misadventure at the time of the procedure
CPT/HCPCS: 81001; 99283

== ENCOUNTER 2023-04-05 01:25 | Day surgery (SDC) | payer MEDICARE, SELFPAY ==
[2023-03-27 13:19] VITALS: BMI 41.0
--- NOTE | 2023-03-27 15:23 | PC.NURSE ---
Report to the Outpatient Waiting Room, entrance under the green pavilion located off [facility], at time __12:00PM on date __04/05/23 . Planned Procedure Time: __2:00PM. Time changes happen often and if your time is changed the preop area will call you the afternoon before. - You and your visitor will be asked to self-screen and do not enter if you have any COVID symptoms. - A mask is optional within the hospital at this time. Patients may have clear liquids (water, carbonated beverages, clear teas, apple juice) until 3 hours prior to surgery with a maximum of 20 ounces. - No food from midnight until time of surgery. Take the following medications with a SIP of water the morning of surgery: ___CARVEDILOL & DULOXETINE. BACLOFEN NEEDED.____ DO NOT STOP ANY OF YOUR OTHER PRESCRIPTION MEDICATIONS PRIOR TO SURGERY ?EXCEPT THE FOLLOWING Medications to discontinue per physician __HOLD ELIQUIS 2 DAYS PRE-OP PER DR CANTU- LAST DOSE 04/02/23 HOLD ALL VITAMINS/SUPPLEMENTS 3 DAYS PRE-OP PER ANESTHESIA- LAST DOSE 04/01/23. Please no make-up, nail swedish, hairspray, perfume, deodorant, or body powder the day of surgery. No jewelry (including any body piercings) or valuables the day of surgery, leave them at home. Please take a shower or bath the night before, or the morning of, surgery with an antibacterial soap. Wear comfortable, loose fitting clothing. - Jewelry must be removed prior to entering the operating room. Rings and piercings that are not removed may be cut off. - The hospital will not accept responsibility for valuables. - Please leave all valuables, including medications, at home the day of surgery. If you are going home after surgery, a licensed front end loader driver must drive you home. - NO public transportation without another adult if you receive anesthesia. - We recommend that an adult stay with you for 24 hours following discharge. - We also recommend that you do not drive, make important decision, drink alcoholic beverages, or take any drugs that were not prescribed by your health care provider for at least 24 hours after your discharge time. Follow any additional instructions given to you from your surgeon. If you or anyone in your household have experienced Covid symptoms in the past week, please notify your surgeon or the nurse liaison at the phone number below for possible testing. Telephone instructions given to __PATIENT and asked if any additional questions and then verbalized understanding. Patient advised to call surgeon office or pre surgery nurse liaison [phone] if any additional questions.
--- NOTE | 2023-04-02 07:27 | PM.HPGS ---
History of Present Illness History of Present Illness Consent: Risks, benefits, and alternatives have been discussed and questions answered. Patient agrees to proceed with procedure. Chief complaint: chronic right hydronephrosis Narrative: Dasia Hernandez is a 81 year old female who has a history of recurrent urolithiasis.? When last seen, she she underwent removal of a left ureteral stent with ESWL placement of a right ureteral stent for a large right renal calculus.? The calculus is fragmented only partially.? Because of her comorbidities we have elected to manage this with a chronic indwelling stent.? We have discussed the alternative options including percutaneous nephrolithotomy, laser lithotripsy with extraction and repeat ESWL procedures.? She has elected for a chronic indwelling stent with periodic changes. Review of Systems Review of Systems: All systems reviewed & are unremarkable except as noted in HPI and below PMFSH Past Medical History Medical History Aortic stenosis Reportedly she has severe aortic stenosis and is followed by a card hanger in [place]. Apparently she has been deemed not a surgical candidate at this time due to her other medical conditions. Brain aneurysm Chronic obstructive pulmonary disease CKD (chronic kidney disease) stage IV Congestive heart failure Depression with anxiety Hypertension Hypothyroidism Iron deficiency anemia Morbid obesity ANNE and COPD overlap syndrome Surgical History Surgical History History of craniotomy Either for an aneurysm or AVM, was difficult to understand what she was saying. History of hysterectomy Family History Family History Father Acute myocardial infarction Social History Social History Social History: The patient lives at [facility] in [place]. 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 She used to ?smoke a lot? and quit several years ago. She denies alcohol and illicit substance use. Her son, Bal Hernandez, is her surrogate decision maker. She wishes to be a full code. Smoking packs per day: 1 Smoking cigarettes per day: 20.0 Years smoked: 20 Smoking pack-years: 20.00 Smoking status: Former smoker Tobacco type: cigarettes Second hand tobacco smoke exposure: No Smoking end date: 09/02/84 Alcohol intake: never Substance use: never Substance use type: does not use Living arrangements: alf Additional living arrangements comments: [facility] [phone] Gender identity (if verbalized by the patient): Female Sexual Orientation (if Verbalized by the Patient): Straight or Heterosexual Spiritual care concerns: No Meds Home Medications and Allergies Home Medications Medication Instructions Recorded Confirmed Type calcium carbonate 600 mg-vitamin 1 tablet PO BID 09/02/19 03/27/23 History D3 20 mcg (800 unit) chewable tablet (Caltrate 600 plus D) duloxetine 30 mg capsule,delayed 60 mg PO DAILY 09/02/19 03/27/23 History release carvedilol 6.25 mg tablet (Coreg) 6.25 mg PO Q12HR 30 days #60 tabs 09/09/19 03/27/23 Rx ascorbic acid (vitamin C) 500 mg 500 mg PO DAILY 03/30/21 03/27/23 History tablet ferrous sulfate 325 mg (65 mg 325 mg PO DAILY 03/30/21 03/27/23 History iron) tablet folic acid 1 mg tablet 1 mg PO DAILY 03/30/21 03/27/23 History quetiapine 25 mg tablet 25 mg PO HS 03/30/21 03/27/23 History amino acids-protein hydrolysate 17 1 ea PO BID 12/14/21 03/27/23 History gram-100 kcal/30 mL oral liquid (Pro-Stat AWC) bisacodyl 10 mg rectal suppository 10 mg RECTAL DAILY PRN Constipation 12/14/21 03/27/23 History multivitamin 1 tablet PO DAILY 12/14/21 03/27/23 History polyethylene glycol 3350 17 17 g PO BID PRN Constipation 10
--- NOTE | ~2023-04-05 | XR_ITS ---
EXAMINATION: XR stent kub - surgery DATE: 04/05/2023 14:47 INDICATION: Right ureteral stent exchange TECHNIQUE: 4 fluoroscopic images of the abdomen and pelvis were obtained during procedure performed antonio Camargo. Radiologist was not present for the imaging or procedure. The amount of fluoroscopy lala e used during this procedure was 0.3 minutes. COMPARISON: 08/31/2022 FINDINGS/IMPRESSION: Images demonstrate a right internal ureteral stent with loops formed in expected position of the blad iglesia and an upper pole calyx of the right kidney. See procedure note for further detail. Reviewed, dictated and finalized at location A. OR ECOLOGIST
--- NOTE | 2023-04-05 06:24 | WPDHPUPDATE1 ---
History and Physical Update Update Date/Time: 04/05/23 06:24 History and Physical has been reviewed, including an updated exam of the patient. There are NO changes in the patient's condition. Risks, benefits, and alternatives have been discussed and questions answered. Patient agrees to proceed with procedure.
[2023-04-05 13:07] LABS: Partial Thromboplastin Time 32.9 SECONDS (22.3-36.8)
--- NOTE | 2023-04-05 13:20 | WPDANESEPPF ---
Anes - Initial Pre Proc Eval Procedure: Operation Date: 04/05/23 14:00 Proposed Procedures p Cystoscopy, Right Ureteral Stent Exchange - Richard Camargo MD Date/Time: 04/05/23 13:20 Surgeon: Richard Camargo MD Pre Op Diagnosis: chronic right hydronephrosis Patient Data Age: 82 Gender: F Height: 1.42 m Weight: 83 kg Allergies Allergy/AdvReac Type Severity Reaction Status Date / Time phenytoin [From Dilantin] Allergy Mild Hives Verified 03/27/23 13:18 Sulfa (Sulfonamide Allergy Unknown Unknown Verified 03/27/23 13:18 Antibiotics) pregabalin [From Lyrica] AdvReac Unknown DIZZY, Verified 03/27/23 13:18 SEDATED Home Medications Medication Instructions Recorded Confirmed Type calcium carbonate 600 mg-vitamin 1 tablet PO BID 09/02/19 03/27/23 History D3 20 mcg (800 unit) chewable tablet (Caltrate 600 plus D) duloxetine 30 mg capsule,delayed 60 mg PO DAILY 09/02/19 03/27/23 History release carvedilol 6.25 mg tablet (Coreg) 6.25 mg PO Q12HR 30 days #60 tabs 09/09/19 03/27/23 Rx ascorbic acid (vitamin C) 500 mg 500 mg PO DAILY 03/30/21 03/27/23 History tablet ferrous sulfate 325 mg (65 mg 325 mg PO DAILY 03/30/21 03/27/23 History iron) tablet folic acid 1 mg tablet 1 mg PO DAILY 03/30/21 03/27/23 History quetiapine 25 mg tablet 25 mg PO HS 03/30/21 03/27/23 History amino acids-protein hydrolysate 17 1 ea PO BID 12/14/21 03/27/23 History gram-100 kcal/30 mL oral liquid (Pro-Stat AWC) bisacodyl 10 mg rectal suppository 10 mg RECTAL DAILY PRN Constipation 12/14/21 03/27/23 History multivitamin 1 tablet PO DAILY 12/14/21 03/27/23 History polyethylene glycol 3350 17 17 g PO BID PRN Constipation 12/14/21 03/27/23 History gram/dose oral powder (Miralax) cetirizine 10 mg tablet (Zyrtec) 10 mg PO HS 04/19/22 03/27/23 History apixaban 5 mg tablet (Eliquis) 2.5 mg PO BID #30 tabs 05/01/22 03/27/23 Rx lactulose 20 gram/30 mL oral 20 g (30 mL) PO QAM #30 mL 05/01/22 03/27/23 Rx solution magnesium oxide 400 mg (241.3 mg 400 mg PO QAM #30 tabs 05/01/22 03/27/23 Rx magnesium) tablet omeprazole 40 mg capsule,delayed 40 mg PO DAILY 08/11/22 03/27/23 History release acetaminophen 500 mg tablet 500 mg PO BID PRN Pain 08/24/22 03/27/23 History baclofen 10 mg tablet 10 mg PO TID PRN Muscle Spasm 03/27/23 03/27/23 History glucosamine-chondroitin 250 mg-200 1 tablet PO DAILY 03/27/23 03/27/23 History mg tablet (Osteo Bi-Flex) hydroxyzine HCl 25 mg tablet 25 mg PO Q6-8H PRN Itching 03/27/23 03/27/23 History Laboratory Tests 04/05/23 12:49 APTT 32.9 SECONDS (22.3-36.8) Patient hx anesthesia problems: none Family hx anesthesia problems: none Results Review: All pre-operative results and documents have been reviewed as part of the pre-operative evaluation. [facility] Past Medical History Medical History Aortic stenosis Reportedly she has severe aortic stenosis and is followed by a wool hat hydraulicker in [place]. Apparently she has been deemed not a surgical candidate at this time due to her other medical conditions. Brain aneurysm Chronic obstructive pulmonary disease CKD (chronic kidney disease) stage IV Congestive heart failure Depression with anxiety Hypertension Hypothyroidism Iron deficiency anemia Morbid obesity ANNE and COPD overlap syndrome Surgical History Surgical History History of craniotomy Either for an aneurysm or AVM, was difficult to understand what she was saying. History of hysterectomy Family History Family History Father Acute myocardial infarction Social History Social History Social History: The patient lives at [facility] in [place]. 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 She used to ?sm
[2023-04-05 13:25] VITALS: BP 106/53; PULSE 85; RESP 14; TEMP 37.3; O2SAT 93
[2023-04-05] MEDS: LACTATED RINGERS 1,000 ML 30 ML IV CONT (13:29)
[2023-04-05] MEDS: ceFAZolin 2 GM/D5W 50 ML 2 GM/50 ML BAG IVPB (14:16)
[2023-04-05 14:54] VITALS: BP 129/66; PULSE 84; RESP 12
[2023-04-05 15:01] LABS: Glucose Point of Care 115 mg/dl (65-105)
[2023-04-05 15:20] VITALS: BP 123/65; PULSE 82; RESP 14
[2023-04-05 15:50] VITALS: BP 126/68; PULSE 82; RESP 16
--- NOTE | 2023-04-05 15:52 | W.PM.PROC2 ---
Procedure Note - Detailed Date of Procedure 04/05/23 Pre-op Diagnosis Chronic right hydronephrosis Post-op Diagnosis Same Procedure Performed Cystoscopy, right ureteral stent exchange Surgeon Richard Camargo MD Anesthesia MAC Description of Procedure Another very challenging procedure because patient essentially has?rigid fixed lower extremities from the waist down.? This makes access to her urethra extremely difficult.? I was able to navigate the urethra with the aid of a flexible cystoscope.?? The right ureteral stent was grasped.? A 0.035 in glidewire was advanced in the right renal pelvis.? Retrograde pyelography with a Strum catheter was undertaken to ensure appropriate positioning of a new 4.8 F stent. Drains Yes
[2023-04-05 16:15] VITALS: BP 103/49; PULSE 90; RESP 14
--- NOTE | 2023-04-05 16:17 | SUR.PHASEII ---
Patient is stable, Discharge instructions were given to patient and family. IV was removed. Just awaiting facility to pick patient up.
== END 2023-04-05 16:30 | disposition home or self-care (01) ==
PROVIDERS: Anesthesiology; PCP Internal Medicine; Visit Provider Urology
PROC: (CPT 52352; principal; 2023-04-05 14:00)
DX: N20.0 Calculus of kidney (principal); N13.30 Unspecified hydronephrosis; I35.0 Nonrheumatic aortic (valve) stenosis; I13.0 Hypertensive heart and chronic kidney disease with heart failure and stage 1 through stage 4 chronic kidney disease, or unspecified chronic kidney disease; I50.9 Heart failure, unspecified; N18.4 Chronic kidney disease, stage 4 (severe); E03.9 Hypothyroidism, unspecified; D50.9 Iron deficiency anemia, unspecified; G47.33 Obstructive sleep apnea (adult) (pediatric); F41.8 Other specified anxiety disorders; J44.9 Chronic obstructive pulmonary disease, unspecified; E66.01 Morbid (severe) obesity due to excess calories; Z68.41 Body mass index [BMI] 40.0-44.9, adult; Z87.891 Personal history of nicotine dependence; Z79.01 Long term (current) use of anticoagulants
CPT/HCPCS: 52332; 36415; 82948; 85730; C1758; C1769; C2617; J0690; J2405; J2704; J7120; Q9966

== ENCOUNTER 2023-04-22 22:14 | Observation (INO) | payer MEDICARE, SELFPAY ==
[2023-04-22 22:13] VITALS: BP 137/103; PULSE 79; RESP 18; TEMP 36.6; O2SAT 94
--- NOTE | 2023-04-22 22:18 | ECG_ITS ---
Measurements Intervals [place] Rate: 76 P: 74 WI: 165 QRS: 58 QRSD: 92 T: 45 QT: 397 QTc: 448 Interpretive Statements SINUS RHYTHM BASELINE ARTIFACT NONSPECIFIC T-WAVE ABNORMALITY COMPARED TO ECG 08/11/2022 01:58:51 SINUS RHYTHM NOW PRESENT Electronically Signed On 04-23-2023 18:22:08 INTERNATIONAL OPERATIONS MANAGER by Ever Obando M.D.
[2023-04-22 22:44] VITALS: PULSE 79; O2SAT 95
[2023-04-22 22:52] VITALS: O2SAT 99
[2023-04-22 22:55] LABS: Basophils Percent Auto 0.3 % (0.2-1.2); Eosinophils Absolute Auto 0.4 K/mm3 (0-0.3); Eosinophils Percent Auto 3.6 % (0-4.4); Hematocrit 26.6 % (37.0-47.0); Hemoglobin 7.5 g/dL (12.0-15.0); Immature Granulocyte Absolute 0.04 K/mm3 (0.00-0.031); Immature Granulocyte Percent A 0.4 % (0-0.5); Lymphocytes Absolute Auto 0.72 K/mm3 (0.9-3.2); Lymphocytes Percent Auto 6.9 % (18.3-44.2); Mean Corpuscular HGB Conc 28.2 g/dl (32-36); Mean Corpuscular Hemoglobin 23.7 pg (26-34); Mean Corpuscular Volume 84.2 fl (80-100); Mean Platelet Volume 8.9 fl (7.4-10.4); Monocytes Absolute Auto 0.6 K/mm3 (0.1-0.6); Monocytes Percent Auto 5.4 % (2.6-8.5); Neutrophils Absolute Auto 8.7 K/mm3 (1.3-6.7); Neutrophils Percent Auto 83.4 % (45.5-73.1); Platelet Count Result 295 k/mm3 (150-375); Red Blood Count 3.16 M/mm3 (4.2-5.4); Red Cell Distribution Width 16.7 % (11.5-14.5); White Blood Count 10.4 K/mm3 (4.5-10.0)
[2023-04-22 23:06] LABS: Alanine Aminotransferase 14 U/L (6-35); Albumin Level 3.7 g/dL (3.5-5.1); Alkaline Phosphatase 108 U/L (38-126); Anion Gap 6 mmol/L (8-16); Aspartate Amino Transferase 31 U/L (14-36); Bilirubin,Total 0.5 mg/dL (0.2-1.3); Blood Urea Nitrogen 40 mg/dL (7-17); Calcium 9.1 mg/dL (8.4-10.2); Carbon Dioxide 27 mmol/L (22-30); Chloride 103 mmol/L (98-107); Estimated Glomerular Filt Rate 18; Glucose 125 mg/dL (65-110); Potassium 3.6 mmol/L (3.4-5.0); Sodium 136 mmol/L (137-145)
[2023-04-22 23:08] LABS: INR 1.4; Prothrombin Time 17.6 Seconds (11.1-14.7)
[2023-04-22 23:09] LABS: Partial Thromboplastin Time 39.5 SECONDS (22.3-36.8)
--- NOTE | 2023-04-22 23:13 | ED.AMS ---
HPI - Altered Mental Status General Chief Complaint: Altered Mental Status Stated Complaint: ams Time Seen by Provider: 04/22/23 22:36 History of Present Illness HPI narrative: 82-year-old female that is DNI DNR comfort care present to the ED for evaluation of altered mental status. Patient is presenting to the ED from [facility]. Patient typically and O x2 but her last known well was last night per staff. Patient's only responsible to pain at this time. We discussed patient care with the patient's daughter and they do not wish to be aggressive with the patient's blood pressure control. They want IV fluids only with no pressors. Related Data Home Medications Medication Instructions Recorded Confirmed calcium carbonate 600 mg-vitamin 1 tablet PO BID 09/02/19 03/27/23 D3 20 mcg (800 unit) chewable tablet (Caltrate 600 plus D) duloxetine 30 mg capsule,delayed 60 mg PO DAILY 09/02/19 03/27/23 release ascorbic acid (vitamin C) 500 mg 500 mg PO DAILY 03/30/21 03/27/23 tablet ferrous sulfate 325 mg (65 mg 325 mg PO DAILY 03/30/21 03/27/23 iron) tablet folic acid 1 mg tablet 1 mg PO DAILY 03/30/21 03/27/23 quetiapine 25 mg tablet 25 mg PO HS 03/30/21 03/27/23 amino acids-protein hydrolysate 17 1 ea PO BID 12/14/21 03/27/23 gram-100 kcal/30 mL oral liquid (Pro-Stat AWC) bisacodyl 10 mg rectal suppository 10 mg RECTAL DAILY PRN Constipation 12/14/21 03/27/23 multivitamin 1 tablet PO DAILY 12/14/21 03/27/23 polyethylene glycol 3350 17 17 g PO BID PRN Constipation 12/14/21 03/27/23 gram/dose oral powder (Miralax) cetirizine 10 mg tablet (Zyrtec) 10 mg PO HS 04/19/22 03/27/23 omeprazole 40 mg capsule,delayed 40 mg PO DAILY 08/11/22 03/27/23 release acetaminophen 500 mg tablet 500 mg PO BID PRN Pain 08/24/22 03/27/23 baclofen 10 mg tablet 10 mg PO TID PRN Muscle Spasm 03/27/23 03/27/23 glucosamine-chondroitin 250 mg-200 1 tablet PO DAILY 03/27/23 03/27/23 mg tablet (Osteo Bi-Flex) hydroxyzine HCl 25 mg tablet 25 mg PO Q6-8H PRN Itching 03/27/23 03/27/23 Allergies Allergy/AdvReac Type Severity Reaction Status Date / Time phenytoin [From Dilantin] Allergy Mild Hives Verified 04/05/23 13:29 Sulfa (Sulfonamide Allergy Unknown Unknown Verified 04/05/23 13:29 Antibiotics) pregabalin [From Lyrica] AdvReac Unknown DIZZY, Verified 04/05/23 13:29 SEDATED Review of Systems Review of Systems: All systems reviewed & are unremarkable except as noted in HPI and below PMFSH Past Medical History Medical History Aortic stenosis Reportedly she has severe aortic stenosis and is followed by a rail flaw detector operator in [place]. Apparently she has been deemed not a surgical candidate at this time due to her other medical conditions. Brain aneurysm Chronic obstructive pulmonary disease CKD (chronic kidney disease) stage IV Congestive heart failure Depression with anxiety Hypertension Hypothyroidism Iron deficiency anemia Morbid obesity ANNE and COPD overlap syndrome Surgical History Surgical History History of craniotomy Either for an aneurysm or AVM, was difficult to understand what she was saying. History of hysterectomy Family History Family History Father Acute myocardial infarction Social History Social History Social History: The patient lives at [facility] in [place]. 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 She used to ?smoke a lot? and quit several years ago. She denies alcohol and illicit substance use. Her son, Bal Hernandez, is her surrogate decision maker. She wishes to be a full code. Smoking packs per day: 1 Smoking cigarettes per day: 20.0 Years smoked: 20 Smoking pack-years: 20.00 Smoking status: Former smoker Tobacco type:
--- NOTE | 2023-04-22 23:14 | PC.NURSE ---
pt care and report given to HANY Hunter. all questions answered.
[2023-04-22] MEDS: SODIUM CHLORIDE 0.9% IV 1,000 ML 999 ML IV CONT (23:19)
[2023-04-22 23:27] LABS: Appearance Urine Turbid (Clear); Bacteria Urine 4+ /hpf; Bilirubin Urine Negative (Negative); Blood Urine 3+ (Negative); Color Urine Yellow (Yellow); Glucose Urine UA Negative (Negative); Ketones Urine Negative (Negative); Leukocyte Esterase Ur 3+ LEU/UL (Negative); Need Manual Microscopic Reviewed; Nitrate Urine Positive (Negative); Non Pathogenic Casts >20; Protein Urine 3+ mg/dL (Negative); RBC Urine >100 /hpf (0-2); Specific Grav Ur 1.016 (1.001-1.035); Squamous Epithelial Cell Urine None seen /hpf (Few); Triple Phosphate Crystal Urine Present /hpf; Urobilinogen Urine 0.2 mg/dL (<2.0); WBC Urine 51-100 /hpf; pH Urine >=9.0 (5.0-9.0)
[2023-04-22 23:31] LABS: Add Urine Microscopic? YES
[2023-04-22 23:55] VITALS: BP 83/45; PULSE 72; RESP 15; O2SAT 99
[2023-04-23] VITALS (11 sets, daily range): BP systolic 74–131; BP diastolic 28–56; PULSE 64–107; RESP 12–28; TEMP 36.2–37.2; O2SAT 94–100; BMI 63.1; BMI 47.7
[2023-04-23] MEDS: MEROPENEM 1 GM/NS 100 ML 1 GM/100 ML BAG IVPB ×2 (02:05→13:19)
[2023-04-23] MEDS: SODIUM CHLORIDE 0.9% IV 1,000 ML 999 ML IV CONT (02:05)
--- NOTE | 2023-04-23 02:36 | PC.NURSE ---
This RN along with Joann RN and an tire maintenance technician went into pt room to clean and change the pt's depend. Upon rolling the pt over and removing the depend, a large wound was observed on the pt's bilateral buttocks with no dressing applied. EDP was made aware and came to bedside. The wound was cleaned with soap and water, triple antibiotic ointment was applied, and it was dressed with an ABD per Dr. Bess's instructions. Pt was turned onto her right side to relieve pressure off wound.
[2023-04-23] MEDS: SODIUM CHLORIDE 0.9% IV 1,000 ML 125 ML IV CONT (06:19)
--- NOTE | 2023-04-23 08:19 | ADMGEN ---
This patient, Dasia Heranndez, was admitted to [facility] Surg Room [id number]. Patient/family oriented to hospital policies and general routines including ID bracelet, bed and alarms, visiting hours, pain management, procedures, bathroom and other care routines, personal items, smoking policy, room service/diet, and visiting hours. Information on how to activate the Rapid Response Team has been discussed. Patient/Family are encouraged to report perceived risks to care and to ask questions if they do not understand what they are told or what they should do.
--- NOTE | 2023-04-23 12:02 | PM.IMPN ---
Subjective Date/time seen: 04/23/23 12:02 Objective Data Vital Signs Vital Signs: Vital Signs - 24 hr 04/22/23 22:13 04/22/23 22:44 04/22/23 22:44 Temperature 97.8 F Pulse Rate 79 79 Respiratory Rate 18 Blood Pressure 137/103 H Pulse Oximetry 94 95 Oxygen Delivery Room Air Nasal Cannula Oxygen Flow Rate 5 04/22/23 22:52 04/22/23 23:55 04/23/23 00:50 Temperature Pulse Rate 72 75 Respiratory Rate 15 13 Blood Pressure 83/45 L 85/44 L Pulse Oximetry 99 99 100 Oxygen Delivery Nasal Cannula Oxygen Flow Rate 2 04/23/23 02:10 04/23/23 03:19 04/23/23 03:51 Temperature Pulse Rate 98 64 Respiratory Rate 14 12 Blood Pressure 92/35 L 85/36 L 95/41 L Pulse Oximetry 98 99 Oxygen Delivery Oxygen Flow Rate 04/23/23 05:18 04/23/23 07:38 04/23/23 08:22 Temperature 97.2 F L Pulse Rate 78 72 107 H Respiratory Rate 12 18 22 H Blood Pressure 92/47 L 74/28 L 131/48 L Pulse Oximetry 99 100 94 Oxygen Delivery Oxygen Flow Rate Intake/Output Intake/Output: Intake & Output 04/20/23 04/21/23 04/22/23 04/23/23 23:59 23:59 23:59 23:59 Intake Total 2150 Output Total 300 Balance 1850 Meds/Results Medications: Active Medications Generic Name Dose Route Start Last Admin Trade Name Freq PRN Reason Stop Dose Admin Meropenem 1 gm in 100 mls @ 200 mls/hr 04/23/23 01:00 04/23/23 03:00 IVPB Infused Q12H REGINA Infusion Sodium Chloride 1,000 mls @ 125 mls/hr 04/23/23 06:10 04/23/23 06:19 Normal Saline Iv IV CONT 04/23/23 14:09 125 mls/hr .Q8H STA Administration Labs Labs: Laboratory Results - last 24 hr 04/22/23 22:41 WBC 10.4 H RBC 3.16 L Hgb 7.5 L Hct 26.6 L MCV 84.2 MCH 23.7 L MCHC 28.2 L RDW 16.7 H Plt Count 295 MPV 8.9 Immature Gran % (Auto) 0.4 Neut % (Auto) 83.4 H Lymph % (Auto) 6.9 L Hopkins % (Auto) 5.4 Eos % (Auto) 3.6 Baso % (Auto) 0.3 Lymph # (Auto) 0.72 L [place] # (Auto) 0.6 Eos # (Auto) 0.4 H Baso # (Auto) 0.0 Abs Immat Gran (auto) 0.04 H Absolute Neuts (auto) 8.7 H Absolute Nucleated RBC 0.0 Nucleated RBC % 0.0 PT 17.6 H INR 1.4 APTT 39.5 H Sodium 136 L Potassium 3.6 Chloride 103 Carbon Dioxide 27 Anion Gap 6 L BUN 40 H D Creatinine 2.50 H Estim Creat Clear Calc Not Reportable Estimated GFR 18 L Glucose 125 H Calcium 9.1 Total Bilirubin 0.5 AST 31 ALT 14 Alkaline Phosphatase 108 Total Protein 8.0 Albumin 3.7 Urine Color Yellow Urine Appearance Turbid H Urine pH >=9.0 H Ur Specific [place] 1.016 Urine Protein 3+ H Urine Glucose (UA) Negative Urine Ketones Negative Ur Blood (Man) 3+ H Urine Nitrate Positive H Urine Bilirubin Negative Urine Urobilinogen 0.2 Add Ur Microanalysis Reviewed Leukocyte Esterase Rfl 3+ H Urine RBC >100 H Urine WBC 51-100 H Ur Squamous Epith Cells None seen Triple Phos Crystals Present H Urine Bacteria 4+ Urine Casts >20
--- NOTE | 2023-04-23 12:29 | PM.IMHP ---
H&P: HPI History of Present Illness Date/Time: 04/23/23 12:29 Chief Complaint: Altered mental status Review of Systems Review of Systems: ROS unobtainable: Yes unobtainable due to mental status PMFSH Past Medical History Medical History Aortic stenosis Reportedly she has severe aortic stenosis and is followed by a tufting machine operator in [place]. Apparently she has been deemed not a surgical candidate at this time due to her other medical conditions. Brain aneurysm Chronic obstructive pulmonary disease CKD (chronic kidney disease) stage IV Congestive heart failure Depression with anxiety Hypertension Hypothyroidism Iron deficiency anemia Morbid obesity ANNE and COPD overlap syndrome Surgical History Surgical History History of craniotomy Either for an aneurysm or AVM, was difficult to understand what she was saying. History of hysterectomy Family History Family History Father Acute myocardial infarction Social History Social History Social History: The patient lives at [facility] in [place]. 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 She used to ?smoke a lot? and quit several years ago. She denies alcohol and illicit substance use. Her son, Bal Hernandez, is her surrogate decision maker. She wishes to be a full code. Smoking packs per day: 1 Smoking cigarettes per day: 20.0 Years smoked: 20 Smoking pack-years: 20.00 Smoking status: Former smoker Second hand tobacco smoke exposure: No Alcohol intake: never Substance use: never Substance use type: does not use [facility] Additional living arrangements comments: [facility] [phone] Gender identity (if verbalized by the patient): Female Sexual Orientation (if Verbalized by the Patient): Straight or Heterosexual Spiritual care concerns: No Meds Home Medications and Allergies Home Medications Medication Instructions Recorded Confirmed Type calcium carbonate 600 mg-vitamin 1 tablet PO BID 09/02/19 04/23/23 History D3 20 mcg (800 unit) chewable tablet (Caltrate 600 plus D) duloxetine 30 mg capsule,delayed 60 mg PO DAILY 09/02/19 04/23/23 History release carvedilol 6.25 mg tablet (Coreg) 6.25 mg PO Q12HR 30 days #60 tabs 09/09/19 04/23/23 Rx ascorbic acid (vitamin C) 500 mg 500 mg PO DAILY 03/30/21 04/23/23 History tablet ferrous sulfate 325 mg (65 mg 325 mg PO DAILY 03/30/21 04/23/23 History iron) tablet folic acid 1 mg tablet 1 mg PO DAILY 03/30/21 04/23/23 History quetiapine 25 mg tablet 25 mg PO HS 03/30/21 04/23/23 History amino acids-protein hydrolysate 17 1 ea PO BID 12/14/21 04/23/23 History gram-100 kcal/30 mL oral liquid (Pro-Stat AWC) bisacodyl 10 mg rectal suppository 10 mg RECTAL DAILY PRN Constipation 12/14/21 04/23/23 History multivitamin 1 tablet PO DAILY 12/14/21 04/23/23 History polyethylene glycol 3350 17 17 g PO BID PRN Constipation 12/14/21 04/23/23 History gram/dose oral powder (Miralax) cetirizine 10 mg tablet (Zyrtec) 10 mg PO HS 04/19/22 04/23/23 History apixaban 5 mg tablet (Eliquis) 2.5 mg PO BID #30 tabs 05/01/22 04/23/23 Rx lactulose 20 gram/30 mL oral 20 g (30 mL) PO QAM #30 mL 05/01/22 04/23/23 Rx solution magnesium oxide 400 mg (241.3 mg 400 mg PO QAM #30 tabs 05/01/22 04/23/23 Rx magnesium) tablet omeprazole 40 mg capsule,delayed 40 mg PO DAILY 08/11/22 04/23/23 History release acetaminophen 500 mg tablet 500 mg PO BID PRN Pain 08/24/22 04/23/23 History baclofen 10 mg tablet 10 mg PO TID PRN Muscle Spasm 03/27/23 04/23/23 History glucosamine-chondroitin 250 mg-200 1 tablet PO DAILY 03/27/23 04/23/23 History mg tablet (Osteo Bi-Flex) hydroxyzine HCl 25 mg tablet 25 mg PO Q6H PRN Itc
--- NOTE | 2023-04-23 12:34 | PM.IMHP ---
H&P: HPI History of Present Illness Date/Time: 04/23/23 12:34 Chief Complaint: AMS Narrative: Pt seen by the bedside, She is unable to provide any HPI or ROS at this time. Information gathered per chart/staff and family. Per ED report below: 82-year-old female that is DNI DNR comfort care present to the ED for evaluation of altered mental status.? Patient is presenting to the ED from [facility].? Patient typically and O x2 but her last known well was last night per staff.? Patient's only responsible to pain at this time.? We discussed patient care with the patient's daughter and they do not wish to be aggressive with the patient's blood pressure control.? They want IV fluids only with no pressors. ED work-up revealed: hypotension, with IV fluids, UA indicated infection, pt was afebrile, her WBC 10.4, hgb 7.5, Scr 2.5,ABX were started as well as the her suprapubic Colindres catheter was exchanged this case was discussed with the hospitalist and patient was accepted for admission.? Hospitalist did want the patient kept in the emergency department until she was more stable.? At 6:00 a.m. patient was admitted upstairs. -Long discussion with family and Son who is POA by the bedside this evening. We discussed care plans and wishes family would like at this time. They do not want invasive treatments, to include cardiology or neurology consults. The family is not ready to transition to comfort care measures, but they do disclose they realize her condition. Daughter-in law reports pt was able to speak with her staff in the past few days, she admits she was not a/o4, but she does state that she could request for assistance at times.The family is interested in Abx for treatment of her UTI, and fluids since she is not eating at this time. The son and daughter in-law also discuss with me that they have looked into a hospice company ([employer]) that is able to provide care to pt at her facility, they are very concerned that pt be transported back to facility, with IV ABx and fluids as they would prefer her end of life care take place there. [facility] Past Medical History Medical History Aortic stenosis Reportedly she has severe aortic stenosis and is followed by a cytotechnologist/cytology supervisor in [place]. Apparently she has been deemed not a surgical candidate at this time due to her other medical conditions. Brain aneurysm Chronic obstructive pulmonary disease CKD (chronic kidney disease) stage IV Congestive heart failure Depression with anxiety Hypertension Hypothyroidism Iron deficiency anemia Morbid obesity ANNE and COPD overlap syndrome Surgical History Surgical History History of craniotomy Either for an aneurysm or AVM, was difficult to understand what she was saying. History of hysterectomy Family History Family History Father Acute myocardial infarction Social History Social History Social History: The patient lives at [facility] in [place]. 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 She used to ?smoke a lot? and quit several years ago. She denies alcohol and illicit substance use. Her son, Bal Hernandez, is her surrogate decision maker. She wishes to be a full code. Smoking packs per day: 1 Smoking cigarettes per day: 20.0 Years smoked: 20 Smoking pack-years: 20.00 Smoking status: Former smoker Second hand tobacco smoke exposure: No Alcohol intake: never Substance use: never Substance use type: does not use Living arrangements: [facility] Additional living arrangements comments: [facility] [phone] Gender identity (if verbalized by the patient): Female Sexual Orientation (if Verbalized by the Patient): Straight or Heterosexual Spiritual care concerns: No Meds Home Medi
[2023-04-23] MEDS: TOLNAFTATE 1% POWDER 45 GM BTL 1 APPLIC TOPICAL ×2 (15:35→20:47)
[2023-04-23 17:21] LABS: NT Pro B Type Natriuretic Pept 900 pg/mL (19.9-100)
[2023-04-23] MEDS: LACTATED RINGERS 1,000 ML 75 ML IV CONT (20:49)
[2023-04-24] MEDS: MEROPENEM 1 GM/NS 100 ML 1 GM/100 ML BAG IVPB ×2 (02:06→12:20)
[2023-04-24 05:58] VITALS: BP 139/60; PULSE 96; RESP 22; TEMP 37.5; O2SAT 95
[2023-04-24 08:00] VITALS: BP 146/61; PULSE 92; RESP 24; TEMP 36.6; O2SAT 97
[2023-04-24 08:41] VITALS: O2SAT 95
[2023-04-24] MEDS: PANTOPRAZOLE SODIUM IV 40 MG VIAL IV PUSH (09:03)
[2023-04-24] MEDS: TOLNAFTATE 1% POWDER 45 GM BTL 1 APPLIC TOPICAL (09:03)
[2023-04-24 14:00] VITALS: BP 127/63; PULSE 94; RESP 16; TEMP 36.5; O2SAT 96
--- NOTE | 2023-04-24 15:55 | PCCCNOTE ---
On 04/24/23, the student, Dasia Moya, provided care and completed [facility] documentation on this patient. I have reviewed the student's documentation and agree with the findings.
--- NOTE | 2023-04-24 16:33 | PM.DS ---
DS: Admitting Diagnosis Discharge Date 04/24/2023 Admitting Diagnosis Altered mental status UTI DS: Summary Hospital Course Reason for hospitalization: 82-year-old female that is DNI DNR comfort care present to the ED for evaluation of altered mental status.? Patient is presenting to the ED from [facility] Hospital Course: Chief Complaint: AMS Narrative: Pt seen by the bedside, She is unable to provide any HPI or ROS at this time. Information gathered per chart/staff and family. Per ED report below: 82-year-old female that is DNI DNR comfort care present to the ED for evaluation of altered mental status.? Patient is presenting to the ED from [facility].? Patient typically and O x2 but her last known well was last night per staff.? Patient's only responsible to pain at this time.? We discussed patient care with the patient's daughter and they do not wish to be aggressive with the patient's blood pressure control.? They want IV fluids only with no pressors. ED work-up revealed:?hypotension, with IV fluids, UA indicated infection, pt was afebrile, her WBC 10.4, hgb 7.5, Scr 2.5,ABX were started as well as the her suprapubic Gardner catheter was exchanged this case was discussed? with the hospitalist and patient was accepted for admission.? Hospitalist did want the patient kept in the emergency department until she was more stable.? At 6:00 a.m. patient was admitted upstairs. 04/23/2023: -Long discussion with family and Son who is POA by the bedside this evening. We discussed care plans and wishes family would like at this time. They do not want invasive treatments, to include cardiology or neurology consults. The family is not ready to transition to comfort care measures, but they do disclose they realize her condition. Daughter-in law reports pt was able to speak with her staff in the past few days, she admits she was not a/o4, but she does state that she could request for assistance at times.The family is interested in Abx for treatment of her UTI, and fluids since she is not eating at this time. The son and daughter in-law also discuss with me that they have looked into a hospice company ([employer]) that is able to provide care to pt at her facility, they are very concerned that pt be transported back to facility, with IV ABx and fluids as they would prefer her end of life care take place there. 04/24/2023: Pt seen this am, she is awake eating breakfast, her overall status has improved greatly since last night, she denies any pain at this time, still unable to provide a reliable hx, yet she is smiling and nodding her head when asked if she is feeling okay. [id number] by the bedside requests to continue IV antibiotics, she is eager to have patient return to [facility] to continue her IV antibiotics and potentially enroll in hospice. Status at Discharge Functional status at discharge: bed bound Overall status at discharge: patient is progressing back to baseline Time Spent with Patient Time attestation: Total time spent providing and/or coordinating discharge services: Time spent: Less than 30 minutes Exam Const: General: confusion, ill appearing, obese and overweight Nutritional Appearance: obese and overweight Orientation/consciousness: confusion and Other orientation findings (pt with word salad and verbal dysregulation ) Limitations: altered mental status and physical limitations HENMT: Head: normal to inspection Eyes: Other: pt will not open her eyes for exam Neck: Neck: no JVD Chest: Chest palpation & inspection: tenderness Resp: Effort & Inspection: abnormal respiratory pattern Cardio: Rhythm: abnormal rhythm Heart sounds: S1 normal heart sound present GI: Inspection: Pannus present and obesity Urinary Catheter: Urinary Catheter: urine cloudy (suprapubic gardner in place, no drainage seen at insertion site ) Skin: General skin exam: normal color Neuro: General: confusion Speech: Ab
== END 2023-04-24 18:50 ==
LOC: ANHED 04-23 07:08 → ANH3MEDSUR 04-23 07:31
PROVIDERS: Nurse Practitioner; Admitting Provider Internal Medicine; Emergency Provider Emergency Medicine; PCP Internal Medicine; Visit Provider Internal Medicine
DX: R41.82 Altered mental status, unspecified (principal); N17.9 Acute kidney failure, unspecified; R53.81 Other malaise; I95.9 Hypotension, unspecified; T83.518A Infection and inflammatory reaction due to other urinary catheter, initial encounter; N39.0 Urinary tract infection, site not specified; Y84.6 Urinary catheterization as the cause of abnormal reaction of the patient, or of later complication, without mention of misadventure at the time of the procedure; I35.0 Nonrheumatic aortic (valve) stenosis; J44.9 Chronic obstructive pulmonary disease, unspecified; I13.0 Hypertensive heart and chronic kidney disease with heart failure and stage 1 through stage 4 chronic kidney disease, or unspecified chronic kidney disease; I50.9 Heart failure, unspecified; N18.4 Chronic kidney disease, stage 4 (severe); E03.9 Hypothyroidism, unspecified; D50.9 Iron deficiency anemia, unspecified; G47.33 Obstructive sleep apnea (adult) (pediatric); F41.8 Other specified anxiety disorders; E66.01 Morbid (severe) obesity due to excess calories; Z68.42 Body mass index [BMI] 45.0-49.9, adult; Z87.891 Personal history of nicotine dependence; Z79.01 Long term (current) use of anticoagulants; Z66 Do not resuscitate
CPT/HCPCS: 36415; 80053; 81001; 83880; 85025; 85610; 85730; 87077; 87086; 87186; 93005; 96361; 96365; 96366; 96367; 96375; 99285; A9270; C9113; G0378; J0696; J2185; J7030; J7120

== ENCOUNTER 2023-07-16 10:15 | Observation (INO) | payer MEDICARE, SELFPAY ==
[2023-07-16] VITALS (13 sets, daily range): BP systolic 92–116; BP diastolic 43–61; PULSE 64–102; RESP 16–18; TEMP 35.9–36.8; O2SAT 93–100; BMI 44.6
--- NOTE | ~2023-07-16 | CT_ITS ---
EXAMINATION: CT abdomen pelvis wo con DATE: 07/16/2023 11:52 INDICATION: Hematuria. Urinary tract infection. TECHNIQUE: Computed tomography (CT) of the abdomen and pelvis was performed without intravenous contr ast. Automated exposure control and iterative reconstruction technique were employed. The dose-length product was 1280.43 mGy-cm. COMPARISON: CT abdomen and pelvis 08/11/2022 FINDINGS: The visualized portions of the lung bases demonstrate mild atelectasis. No pleural effusion . The heart size is normal. No pericardial effusion. The liver and spleen are normal. There are galls tones in the gallbladder, which is distended, likely secondary to fasting. The pancreas and adrenal g lands are normal. There is cortical thinning in the kidneys. There are stones in the right kidney and right renal pelvis measuring up to 10 mm. There is a right internal ureteral stent in expected posit ion. There is a 4 mm stone in left kidney. The bladder is decompressed by a suprapubic catheter. Stoo l distends the rectosigmoid. There is diverticulosis of the colon without evidence of diverticulitis. The appendix is normal. There are no pathologically enlarged lymph nodes. There is no free intraperi toneal fluid. There is severe lumbar spondylosis. There is severe osteoarthritis of the hips. IMPRESSION: 1. Bilateral nonobstructing kidney stones. Right internal ureteral stent in expected position. 2. Stool distends the rectosigmoid. 3. Cholelithiasis. Reviewed, dictated and finalized at location A. IMPRESSION: 1. Bilateral nonobstructing kidney stones. Right internal ureteral stent in exp ected position. 2. Stool distends the rectosigmoid. 3. Cholelithiasis.
--- NOTE | 2023-07-16 10:23 | ED.FEMALEGU ---
HPI - Female Genitourinary General Chief complaint: Urogenital-Female <Marilia Bailey PA-C - Last Filed: 07/16/23 15:06> Stated complaint: UTI <Marilia Bailey PA-C - Last Filed: 07/16/23 15:06> Source: patient and old records reviewed <Marilia Bailey PA-C - Last Filed: 07/16/23 15:06> Mode of arrival: EMS <Marilia Bailey PA-C - Last Filed: 07/16/23 15:06> Limitations: no limitations <SAM Wheeler Last Filed: 07/16/23 15:06> History of Present Illness HPI Narrative: Patient is an 82-year-old female who presents the ED via EMS with report of a UTI. Patient is resident of [facility]. Has hx of suprapubic catheter. Per jail report, patient was diagnosed with a UTI on 07/09. Unknown if she was started on antibiotics. Urine culture resulted today showing Pseudomonas, resistant to fluoroquinolones. She was sent here for further evaluation and to be started on IV antibiotics. Patient denies current abdominal pain. Denies N/V, known fevers. <Marilia Bailey PA-C - Last Filed: 07/16/23 15:06> Related Data Home medications: Home Medications Medication Instructions Recorded Confirmed calcium carbonate 600 mg-vitamin 1 tablet PO BID 09/02/19 07/16/23 D3 20 mcg (800 unit) chewable tablet (Caltrate 600 plus D) duloxetine 30 mg capsule,delayed 60 mg PO DAILY 09/02/19 07/16/23 release ascorbic acid (vitamin C) 500 mg 500 mg PO DAILY 03/30/21 07/16/23 tablet ferrous sulfate 325 mg (65 mg 325 mg PO DAILY 03/30/21 07/16/23 iron) tablet folic acid 1 mg tablet 1 mg PO DAILY 03/30/21 07/16/23 quetiapine 25 mg tablet 25 mg PO HS 03/30/21 07/16/23 amino acids-protein hydrolysate 17 1 ea PO BID 12/14/21 07/16/23 gram-100 kcal/30 mL oral liquid (Pro-Stat AWC) bisacodyl 10 mg rectal suppository 10 mg RECTAL DAILY PRN Constipation 12/14/21 07/16/23 multivitamin 1 tablet PO DAILY 12/14/21 07/16/23 polyethylene glycol 3350 17 17 g PO BID PRN Constipation 12/14/21 07/16/23 gram/dose oral powder (Miralax) cetirizine 10 mg tablet (Zyrtec) 10 mg PO HS 04/19/22 07/16/23 omeprazole 40 mg capsule,delayed 40 mg PO DAILY 08/11/22 07/16/23 release acetaminophen 500 mg tablet 500 mg PO BID PRN Pain 08/24/22 07/16/23 baclofen 10 mg tablet 10 mg PO TID PRN Muscle Spasm 03/27/23 07/16/23 glucosamine-chondroitin 250 mg-200 1 tablet PO DAILY 03/27/23 07/16/23 mg tablet (Osteo Bi-Flex) hydroxyzine HCl 25 mg tablet 25 mg PO Q6H PRN Itching 03/27/23 07/16/23 <SAM Wheeler Last Filed: 07/16/23 15:06> Allergies/Adverse reactions: Allergies Allergy/AdvReac Type Severity Reaction Status Date / Time phenytoin [From Dilantin] Allergy Mild Hives Verified 07/16/23 18:15 Sulfa (Sulfonamide Allergy Unknown Unknown Verified 07/16/23 18:15 Antibiotics) pregabalin [From Lyrica] AdvReac Unknown DIZZY, Verified 07/16/23 18:15 SEDATED <SAM Wheeler Last Filed: 07/16/23 15:06> Review of Systems Review of Systems: CONSTITUTIONAL: Denies fever, chills, or sweats. CARDIOVASCULAR: Denies chest pain. RESPIRATORY: Denies dyspnea. GASTROINTESTINAL: See HPI GENITOURINARY: See HPI MUSCULOSKELETAL: Denies back pain, extremity pain, myalgia. <SAM Wheeler Last Filed: 07/16/23 15:06> All systems reviewed & are unremarkable except as noted in HPI and below <SAM Wheeler Last Filed: 07/16/23 15:06> [facility] Past Medical History Medical History: Medical History Anemia, chronic disease Aortic stenosis Reportedly she has severe aortic stenosis and is followed by a solar photovoltaic designer in [place]. Apparently she has been deemed not a surgical candidate at this time due to her other medical conditions. Brain aneurysm Chronic anticoagulation Chronic kidney disease, stage 4 (severe) Chronic obstructive p
--- NOTE | 2023-07-16 10:48 | PC.NURSE ---
Pt presents with supra-pubic catheter intact, insertion site draining yellow, dark drainage.
--- NOTE | 2023-07-16 11:11 | PC.NURSE ---
Staff having difficulty obtain lab specimens. Child Care Provider at bedside at this time.
[2023-07-16 11:13] LABS: Basophils Percent Auto 0.4 % (0.2-1.2); Eosinophils Absolute Auto 0.3 K/mm3 (0-0.3); Eosinophils Percent Auto 4.1 % (0-4.4); Hematocrit 23.5 % (37.0-47.0); Immature Granulocyte Absolute 0.03 K/mm3 (0.00-0.031); Immature Granulocyte Percent A 0.4 % (0-0.5); Lymphocytes Absolute Auto 0.82 K/mm3 (0.9-3.2); Mean Corpuscular HGB Conc 28.1 g/dl (32-36); Mean Corpuscular Hemoglobin 23.1 pg (26-34); Mean Corpuscular Volume 82.2 fl (80-100); Mean Platelet Volume 9.2 fl (7.4-10.4); Monocytes Absolute Auto 0.5 K/mm3 (0.1-0.6); Monocytes Percent Auto 5.5 % (2.6-8.5); Neutrophils Absolute Auto 6.6 K/mm3 (1.3-6.7); Neutrophils Percent Auto 79.6 % (45.5-73.1); Platelet Count Result 274 k/mm3 (150-375); Red Blood Count 2.86 M/mm3 (4.2-5.4); Red Cell Distribution Width 18.6 % (11.5-14.5); White Blood Count 8.2 K/mm3 (4.5-10.0)
[2023-07-16] MEDS: SODIUM CHLORIDE 0.9% IV 1,000 ML 999 ML IV CONT (11:15)
[2023-07-16 11:16] LABS: Hemoglobin 6.6 g/dL (12.0-15.0)
[2023-07-16 11:29] LABS: Alanine Aminotransferase 17 U/L (6-35); Albumin Level 3.8 g/dL (3.5-5.1); Alkaline Phosphatase 83 U/L (38-126); Anion Gap 8 mmol/L (4-12); Aspartate Amino Transferase 31 U/L (14-36); Bilirubin,Total 0.4 mg/dL (0.2-1.3); Blood Urea Nitrogen 47 mg/dL (7-17); Calcium 8.8 mg/dL (8.4-10.2); Carbon Dioxide 23 mmol/L (22-30); Chloride 107 mmol/L (98-107); Estimated Glomerular Filt Rate 18; Glucose 104 mg/dL (65-110); Potassium 4.5 mmol/L (3.4-5.0); Sodium 138 mmol/L (137-145)
[2023-07-16 11:35] LABS: Immature Reticulocyte Fraction 22.9 % (3.0-15.9); Reticulocyte Hemoglobin Conten 21.4 pg (28.2-36.6); Reticulocyte Percent 2.09 % (0.7-4.3); Reticulocytes Absolute 0.06 10^6/uL (0.02-0.10)
[2023-07-16 11:38] LABS: Hypochromasia 2+; Platelet Estimate Adequate (Adequate); Schistocytes None Seen
[2023-07-16 11:39] LABS: Target Cells 1+
[2023-07-16 12:17] LABS: Lactate Dehydrogenase 132 U/L (120-246)
[2023-07-16 12:24] LABS: Transferrin 274 mg/dL (206-381)
[2023-07-16 12:32] LABS: Iron 25 ug/dL (37-170)
[2023-07-16 12:44] LABS: Percent Iron Saturation 7 % (20-50)
--- NOTE | 2023-07-16 12:49 | PC.NURSE ---
Addendum entered by Fanny Ortiz RN 07/16/23 15:19: Noted pt buttock excoriated, bleeding dressing from NH intact, noted several scabbed areas to trunk, vijay areas underneath breast. Marilia CHO informed Original Note: Marilia CHO changed supra pubic catheter. Inserted #18 with 10cc balloon. Gauze dressing to stoma. Pt incontinent of large amount of de souza color soft stool. Janis care given
[2023-07-16 13:08] LABS: Appearance Urine Turbid (Clear); Bacteria Urine 4+ /hpf; Bilirubin Urine Negative (Negative); Blood Urine 3+ (Negative); Color Urine Orange (Yellow); Glucose Urine UA Negative (Negative); Ketones Urine Negative (Negative); Leukocyte Esterase Ur 3+ LEU/UL (Negative); Need Manual Microscopic Reviewed; Nitrate Urine Positive (Negative); Protein Urine 2+ mg/dL (Negative); RBC Urine >100 /hpf (0-2); Specific Grav Ur 1.013 (1.001-1.035); Squamous Epithelial Cell Urine None Seen /hpf (Few); Urobilinogen Urine 0.2 mg/dL (<2.0); WBC Urine >100 /hpf (0-3); pH Urine 5.5 (5.0-9.0)
[2023-07-16 13:10] LABS: Add Urine Microscopic? YES
[2023-07-16 13:28] LABS: Folic Acid > 20.0 ng/mL (2.76->20)
[2023-07-16] MEDS: MEROPENEM 1 GM/NS 100 ML 1 GM/100 ML BAG IVPB (14:03)
--- NOTE | 2023-07-16 14:12 | PM.IMHP ---
H&P: HPI History of Present Illness Date/Time: 07/16/23 14:45 Chief Complaint: ?Needs IV antibiotics for UTI.? 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 A urine sample was obtained on 07/10/2023 ?because I was confused? and the urine culture grew out fluoroquinolone resistant Pseudomonas aeruginosa. The patient herself has no complaints and specifically denies low back and abdominal discomfort. She does not have systemic symptoms and was afebrile on arrival with stable blood pressures. At the time my evaluation she is resting comfortably and has no complaints. She denies syncope, near syncope, fever, chills, sweats, cold and flu symptoms, chest pain, shortness a breath, nausea, vomiting, diarrhea, and bloody stools. In the ED: She was afebrile on arrival. Blood pressures have been running at the low end of normal which appears to be usual for her. Labs were significant for a WBC count of 8.2, hemoglobin 6.6 BUN 47, creatinine 2.50. Urine was turbid with 2+ protein, 3+ blood, positive nitrates, 3+ leukocyte esterase, greater than 100 RBC and WBC, and 4+ bacteria. CT of the abdomen and pelvis showed bilateral nonobstructing kidney stones with a right internal ureteral stent in expected position and cholelithiasis. She has been started on meropenem is being admitted in this setting for further treatment neurology consult. Review of Systems Review of Systems: 12 systems were reviewed and are negative except for as per HPI. [facility] Past Medical History Medical History Anemia, chronic disease Aortic stenosis Reportedly she has severe aortic stenosis and is followed by a manager med surg in [place]. Apparently she has been deemed not a surgical candidate at this time due to her other medical conditions. Brain aneurysm Chronic anticoagulation Chronic kidney disease, stage 4 (severe) Chronic obstructive pulmonary disease Colonization with multidrug-resistant bacteria Urine cultures over the years have grown ESBL E coli, multidrug resistant Proteus mirabilis, and fluoroquinolone resistant Pseudomonas aeruginosa. 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 History of hysterectomy Family History Family History Father Acute myocardial infarction Social History Social History (Updated 07/16/23 @ 21:01 by Nadine Ross PA-C) Social History: Healthcare power of estate planning attorney: Arnulfo Acosta ([phone]). Code status: Modified code, no CPR. Smoking packs per day: 1 Smoking cigarettes per day: 20.0 Years smoked: 20 Smoking pack-years: 20.00 Smoking status: Former smoker Second hand tobacco smoke exposure: No Alcohol intake: never Substance use: never Substance use type: does not use Do You Feel Safe in your Home?: Yes Lack of Transportation: No Lack of Food: Never True Current Housing: I Have Housing Concerned About Future Housing: No Difficulty Paying Gas/Electric Bills: No Difficulty Paying for Meds: No Currently Unemployed: No Education: Bachelor's Degree Difficulty w/ Childcare or Family Care: No [facility] Additional living arrangements comments: [facility]. Occupa
[2023-07-16] MEDS: SODIUM CHLORIDE 0.9% IV 250 ML 30 ML IV CONT (14:45)
--- NOTE | 2023-07-16 15:08 | PC.NURSE ---
Pt tolerating transfusion without difficulty
--- NOTE | 2023-07-16 15:29 | PC.NURSE ---
Pt incontinent of large amount of loose stool. Dressing to coccyx off. Janis care given depends applied.
--- NOTE | 2023-07-16 15:42 | ADMGEN ---
This patient, Dasia Hernandez, was admitted to Medical Room 247-. Patient/family oriented to hospital policies and general routines including ID bracelet, bed and alarms, visiting hours, pain management, procedures, bathroom and other care routines, personal items, smoking policy, room service/diet, and visiting hours. Information on how to activate the Rapid Response Team has been discussed. Patient/Family are encouraged to report perceived risks to care and to ask questions if they do not understand what they are told or what they should do.
--- NOTE | 2023-07-16 15:47 | WPDURCON ---
Assessment and Plan Assessment and plan (1) Asymptomatic bacteriuria: Code(s): R82.71 - Bacteriuria Status: Acute Assessment and Plan: UA grossly abnormal, however patient remains asymptomatic and no clinical findings suggestive of acute infection. Urine culture collected on 07/10/2023 with growth of fluoroquinolone resistant Pseudomonas. Review of prior cultures demonstrates history of multi-drug resistant bacteria; however suspect this is indicative of colonization of suprapubic tube. Repeat urine culture is pending (2) Hydronephrosis of right kidney: Code(s): N13.30 - Unspecified hydronephrosis Status: Chronic Assessment and Plan: Chronic right hydronephrosis managed by routine right ureteral stent exchanges. Last stent was exchanged 04/2023. No indication for any acute intervention at this time as stent is in expected position on imaging and renal function is stable. Continue with stent exchange as planned q 6 months (3) Kidney stones: Code(s): N20.0 - Calculus of kidney Status: Acute Assessment and Plan: Bilateral nonobstructing renal stones that require no acute intervention (4) Chronic kidney disease, stage 4 (severe): Code(s): N18.4 - Chronic kidney disease, stage 4 (severe) Status: Acute Assessment and Plan: Renal function is consistent with baseline (5) Urinary retention: Code(s): R33.9 - Retention of urine, unspecified Status: Acute Assessment and Plan: Continue SP tube with monthly catheter changes. Urology Consult Note HPI Date Seen: 07/16/23 Requesting Physician: Andrey Schulte MD Primary Care Provider: Cm Beauchamp, Consult Narrative Narrative: Dasia Hernandez is a 82 year old female with a history of urinary retention status post SP tube placement 08/2022 and chronic right hydronephrosis managed with routine stent exchange every 6 months (last stent exchange 04/2023) who is currently admitted for UTI. Patient lives at a nursing facility and on 07/10/2023 urine culture was completed for unclear reasons. This resulted today with growth of fluoroquinolone resistant Pseudomonas and she was directed to the emergency room in order to begin IV antibiotic therapy. The patient believes that she was having some confusion which is what prompted the urine culture. She states her mental status is back to baseline at this time. She has no urinary symptoms. She is unsure when her last SP tube exchange was completed. RN at bedside tells me that the SP tube was replaced today while in the ER. SP tube is draining clear yellow urine. The patient denies any episodes of hematuria. She denies suprapubic pain or flank pain. Arrival to the emergency room, her vital signs were stable, she was afebrile, WBC within normal limits at 8.2, hemoglobin low at 6.6, and creatinine 2.5. UA abnormal with leukocytes, nitrites, blood. A repeat urine culture was obtained and is pending at this time. A CT of the abdomen/pelvis was completed which showed bilateral nonobstructing renal stones with right internal ureteral stent in expected position and bladder decompressed by suprapubic catheter which is in appropriate position. At the time my evaluation, the patient is resting comfortably and offers no complaints. Review of Systems Review of Systems: All systems reviewed & are unremarkable except as noted in HPI and below PMFSH Past Medical History Medical History (Updated 07/16/23 @ 15:59 by Lynn Marrufo PA-C) Anemia, chronic disease Aortic stenosis Reportedly she has severe aortic stenosis and is followed by a logistics solution manager in [place]. Apparently she has been deemed not a surgical candidate at this time due to her other medical conditions. Brain aneurysm Chronic anticoagulation Chronic kidney disease, stage 4 (severe) Chronic obstructive pulmonary disease Colonization with multidrug-resistant bacteri
[2023-07-16 16:43] LABS: Hematocrit 27.3 % (37.0-47.0); Hemoglobin 7.9 g/dL (12.0-15.0)
[2023-07-16 22:54] LABS: Hematocrit 25.5 % (37.0-47.0); Hemoglobin 7.4 g/dL (12.0-15.0)
[2023-07-17 02:08] LABS: IFOB Positive Control Positive; Immunochemical Fecal Occult Bl Positive (N)
[2023-07-17 04:14] VITALS: BP 128/64; PULSE 101; RESP 20; TEMP 36.4; O2SAT 92
[2023-07-17 05:48] LABS: Hematocrit 27.4 % (37.0-47.0); Hemoglobin 7.8 g/dL (12.0-15.0); Mean Corpuscular HGB Conc 28.5 g/dl (32-36); Mean Corpuscular Volume 84.3 fl (80-100); Mean Platelet Volume 9.2 fl (7.4-10.4); Platelet Count Result 287 k/mm3 (150-375); Red Blood Count 3.25 M/mm3 (4.2-5.4); Red Cell Distribution Width 18.1 % (11.5-14.5); White Blood Count 9.7 K/mm3 (4.5-10.0)
[2023-07-17 06:04] LABS: Anion Gap 7 mmol/L (4-12); Blood Urea Nitrogen 39 mg/dL (7-17); Calcium 8.9 mg/dL (8.4-10.2); Carbon Dioxide 24 mmol/L (22-30); Chloride 109 mmol/L (98-107); Estimated Glomerular Filt Rate 20; Glucose 111 mg/dL (65-110); Magnesium 2.2 mg/dL (1.6-2.3); Potassium 4.3 mmol/L (3.4-5.0); Sodium 140 mmol/L (137-145)
--- NOTE | 2023-07-17 07:49 | PM.IMPN ---
Progress Note: A&P Assessment and Plan (1) Asymptomatic bacteriuria: Code(s): R82.71 - Bacteriuria Status: Acute Assessment and Plan: Urine culture collected on 07/10/2023 with growth of fluoroquinolone resistant Pseudomonas - history of multi-drug resistant bacteria; however suspect this is indicative of colonization of suprapubic tube Repeat urine culture is pending - pt is asymptomatic- appropriate to stop antibiotics (2) Acute on chronic anemia: Code(s): D64.9 - Anemia, unspecified Status: Acute Assessment and Plan: - baseline around 7 - today, 07/16- 7.8 - eliquis was held- as unsure why she was on it (3) Positive urine culture: Code(s): R82.79 - Other abnormal findings on microbiological examination of urine Status: Acute Assessment and Plan: fluoroquinolone resistant Pseudomonas aeruginosa-likely contaminated (4) Ureteral stent present: Code(s): Z96.0 - Presence of urogenital implants Status: Acute Assessment and Plan: - urology following notes reviewed: Chronic right hydronephrosis managed by routine right ureteral stent exchanges.? Last stent was exchanged 04/2023.? No indication for any acute intervention at this time as stent is in expected position on imaging and renal function is stable.? Continue with stent exchange as planned q 6 months (5) Chronic kidney disease, stage 4 (severe): Code(s): N18.4 - Chronic kidney disease, stage 4 (severe) Status: Acute (6) Occult blood in stools: Code(s): R19.5 - Other fecal abnormalities Status: Acute Assessment and Plan: pt is unable to tell if she had any hemorrhoids or any blood ins tool - will order GI consult - no active rectal bleeding now- will continue to hold eliquis Plan The patient presented to the emergency department after a urine culture obtained on 07/10/2023 came back growing fluoroquinolone resistant Pseudomonas aeruginosa as detailed in HPI. Labs, imaging, EKG, and all reports were personally reviewed. She is afebrile and has no systemic symptoms to suggest active infection. More over she has a chronic indwelling suprapubic catheter and multiple urine cultures over the years have demonstrated several different bacteria, many multidrug resistant or of ESBL species, suggestive of colonization. She was started on meropenem in the ED and we will continue with this for now in case she requires stent exchange. If there are no plans for surgery than the antibiotic should be stopped as they would be causing more harm than good due to lack of evidence to suggest active infection. Her hemoglobin is chronically in the 7 range but dropped below that today and she was given a unit of packed red blood cells. She is on Eliquis however cannot tell me why. Hold for now pending stool for occult blood the fact that she may require procedure. Renal function is stable on review of previous labs. Vital signs were reviewed and they have been stable and are typical for her. Her home medications will be reviewed and resumed as appropriate. Findings and treatment plan were discussed with the patient. Questions were solicited and answered to satisfaction. The patient's medical management will be taken over by the hospitalist team in a.m. 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 anemia, congestive heart failure, hypertension, hypothyroidism, and other comorbidities who presented to the emergency department via EMS from [facility] with reports of needing IV antibiotics for urinary tract infection. A urine sample was obtained on and the urine culture grew out fluoroquinolone resistant Pseudomonas aeruginosa. She was afebrile
--- NOTE | 2023-07-17 09:05 | WPDUROPN2 ---
Progress Note: A&P Assessment and Plan (1) Asymptomatic bacteriuria: Code(s): R82.71 - Bacteriuria Status: Acute Assessment and Plan: UA grossly abnormal, however patient remains asymptomatic and no clinical findings suggestive of acute infection. Urine culture collected on 07/10/2023 with growth of fluoroquinolone resistant Pseudomonas. Review of prior cultures demonstrates history of multi-drug resistant bacteria; however suspect this is indicative of colonization of suprapubic tube and no need for ongoing antibiotics. (2) Hydronephrosis of right kidney: Code(s): N13.30 - Unspecified hydronephrosis Status: Chronic Assessment and Plan: Chronic right hydronephrosis managed by routine right ureteral stent exchanges. Last stent was exchanged 04/2023. No indication for any acute intervention at this time as stent is in expected position on imaging and renal function is stable. Continue with stent exchange as planned q 6 months (3) Kidney stones: Code(s): N20.0 - Calculus of kidney Status: Acute Assessment and Plan: Bilateral nonobstructing renal stones that require no acute intervention (4) Chronic kidney disease, stage 4 (severe): Code(s): N18.4 - Chronic kidney disease, stage 4 (severe) Status: Acute Assessment and Plan: Renal function remains consistent with baseline, creatinine 2.3 today (5) Urinary retention: Code(s): R33.9 - Retention of urine, unspecified Status: Chronic Assessment and Plan: Continue SP tube with monthly catheter changes. Subjective Subjective Date/Time Seen: 07/17/23 09:05 Interval history: Dasia is asleep, resting comfortably. RN at bedside reports she was complaining of generalized pain earlier this morning. Her SP tube is draining clear yellow urine. She remains afebrile and vital signs are stable. WBC is within normal limits. Creatinine still consistent with baseline, 2.3 today. Repeat urine culture is pending. Review of Systems Review of Systems: All systems reviewed & are unremarkable except as noted in HPI and below Exam Narrative: General: Obese, chronically ill-appearing, asleep, resting comfortably HEENT: Normocephalic, atraumatic, sclerae anicteric Respiratory: Normal respiratory effort, no accessory muscle use Abdomen: Obese abdomen with large pannus, soft : SP tube draining clear yellow urine Skin: Normal coloration, warm and dry Objective Data Vital Signs Vital Signs: Vital Signs - 24 hr 07/16/23 10:15 07/16/23 10:18 07/16/23 10:41 Temperature 97.5 F L 97.8 F Pulse Rate 84 89 82 Respiratory Rate 18 18 17 Blood Pressure 101/43 L 101/43 L 92/45 L Pulse Oximetry 96 94 93 Oxygen Delivery Room Air 07/16/23 12:52 07/16/23 12:13 07/16/23 13:53 Temperature 97.9 F 98.3 F Pulse Rate 64 90 88 Respiratory Rate 16 16 16 Blood Pressure 108/48 L 99/52 L 93/56 L Pulse Oximetry 95 96 95 Oxygen Delivery 07/16/23 14:05 07/16/23 15:05 07/16/23 15:17 Temperature 98.2 F 98.2 F 98.1 F Pulse Rate 87 85 86 Respiratory Rate 18 18 16 Blood Pressure 105/61 116/52 L 105/59 L Pulse Oximetry 96 95 100 Oxygen Delivery 07/16/23 15:18 07/16/23 15:40 07/16/23 15:40 Temperature 98.3 F 97.6 F Pulse Rate 88 88 Respiratory Rate 18 16 Blood Pressure 105/59 L 116/48 L Pulse Oximetry 94 95 Oxygen Delivery Room Air 07/16/23 19:57 07/16/23 20:00 07/16/23 20:00 Temperature 96.6 F L 96.6 F L Pulse Rate 102 H 102 H 102 H Respiratory Rate 18 18 18 Blood Pressure 106/53 L 106/53 L Pulse Oximetry 93 93 93 Oxygen Delivery Room Air 07/17/23 04:14 Temperature 97.6 F Pulse Rate 101 H Respiratory Rate 20 Blood Pressure 128/64 Pulse Oximetry 92 Oxygen Delivery Intake/Output Intake/Output: Intake & Output 07/14/23 07/15/23 07/16/23 07/17/23 23:59 23:59 23:59 23:59 Intake Total 1930 240 Output Total 350 700 Balance
[2023-07-17] MEDS: ACETAMINOPHEN 325 MG TABLET 650 MG PO (10:19)
[2023-07-17] MEDS: MULTIVITAMINS THERAPEUTIC TAB (*BKC) 1 TABLET PO (10:20)
[2023-07-17] MEDS: CALCIUM/VITAMIN D 500 MG/5 MCG (200 I.U.) TABLET PO ×2 (10:20→17:47)
[2023-07-17] MEDS: FOLIC ACID 1 MG TABLET PO (10:20)
[2023-07-17] MEDS: FERROUS SULFATE 325 MG TABLET DR BY MOUTH (10:20)
[2023-07-17] MEDS: PANTOPRAZOLE 40 MG TABLET PO ×2 (10:20→17:47)
[2023-07-17] MEDS: ASCORBIC ACID 500 MG TABLET PO (10:21)
[2023-07-17] MEDS: MAGNESIUM OXIDE 400 MG TABLET PO (10:21)
[2023-07-17 10:24] VITALS: PULSE 86
[2023-07-17] MEDS: carvediloL 6.25 MG TABLET PO ×2 (10:24→20:17)
[2023-07-17] MEDS: LACTULOSE 20 GM/30 ML UDC PO (10:27)
[2023-07-17] MEDS: TOLNAFTATE 1% POWDER 45 GM BTL 1 APPLIC TOPICAL ×2 (10:27→20:19)
[2023-07-17 14:00] VITALS: BP 95/56; PULSE 78; RESP 16; TEMP 36.6; O2SAT 95
[2023-07-17 17:46] VITALS: BP 115/48; PULSE 84
[2023-07-17 19:19] VITALS: BP 108/46; PULSE 86; RESP 20; TEMP 36.3; O2SAT 93
[2023-07-17 19:33] VITALS: PULSE 86; RESP 20; O2SAT 93
[2023-07-17] MEDS: LORATADINE 10 MG TABLET PO (20:17)
[2023-07-17] MEDS: QUEtiapine FUMARATE 25 MG TABLET PO (20:17)
[2023-07-18 05:37] VITALS: BP 105/53; PULSE 88; RESP 20; TEMP 36.3; O2SAT 90
[2023-07-18 06:13] LABS: Hematocrit 26.4 % (37.0-47.0); Hemoglobin 7.4 g/dL (12.0-15.0); Mean Corpuscular Hemoglobin 23.7 pg (26-34); Mean Corpuscular Volume 84.6 fl (80-100); Mean Platelet Volume 8.6 fl (7.4-10.4); Platelet Count Result 256 k/mm3 (150-375); Red Blood Count 3.12 M/mm3 (4.2-5.4); Red Cell Distribution Width 18.3 % (11.5-14.5); White Blood Count 9.3 K/mm3 (4.5-10.0)
--- NOTE | 2023-07-18 07:33 | PM.IMPN ---
Progress Note: A&P Assessment and Plan (1) Asymptomatic bacteriuria: Code(s): R82.71 - Bacteriuria Status: Acute (2) Acute on chronic anemia: Code(s): D64.9 - Anemia, unspecified Status: Acute (3) Positive urine culture: Code(s): R82.79 - Other abnormal findings on microbiological examination of urine Status: Acute (4) Ureteral stent present: Code(s): Z96.0 - Presence of urogenital implants Status: Acute (5) Chronic kidney disease, stage 4 (severe): Code(s): N18.4 - Chronic kidney disease, stage 4 (severe) Status: Acute (6) Occult blood in stools: Code(s): R19.5 - Other fecal abnormalities Status: Acute (7) Hydronephrosis of right kidney: Code(s): N13.30 - Unspecified hydronephrosis Status: Chronic (8) Chronic anticoagulation: Code(s): Z79.01 - 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 wood (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9 - Iron deficiency anemia, unspecified Code(s): D50.9 - Iron deficiency anemia, unspecified Status: Acute (13) Physical deconditioning: Code(s): R53.81 - Other malaise Status: Acute (14) ANNE and COPD overlap syndrome: Code(s): G47.33 - Obstructive sleep apnea (adult) (pediatric); J44.9 - Chronic obstructive pulmonary disease, unspecified Status: Acute Plan Chronic right hydronephrosis Urology consulted Right stent correct positioning recommend exchange in 6 months Chronic suprapubic indwelling catheter UTI Acute on chronic HX of ESBL Last UA 07/09 with Pseudomonas Likely colonization the suprapubic tube Follow-up UA showing g negative bacilli IV meropenem pending cultures Anemia History iron deficiency anemia as well as CKD HGB 6.6 POA Patient received 1 unit PRBCs Holding Eliquis at this time Positive occult stool GI consulted PPI BID H&H daily Transfuse if Hgb <7.0 Chronic wounds Wound consulted Physically deconditioned HX : HTN: Resume home medications HX COPD: Stable Code status: Full code per patient DVT prophylaxis: Eliquis held/Scd's Stress ulcer prophylaxis: Protonix 40 BID PT/OT notes: NA Disposition: Patient admitted for UTI with HX of ESBL currently pending UA and anemia with positive occult stool GI consulted. Plan is for patient to return to [facility] and rehab when stable pending UA and GI recommendations. Time Spent With Patient Time with patient: 15 - 25 minutes Subjective Date/time seen: 07/18/23 07:33 Interval history: Admission: Medical Record 82-year-old female with chronic indwelling suprapubic catheter for urinary retention and immobility, chronic indwelling ureteral stent, chronic kidney disease,? anemia, congestive heart failure, hypertension, hypothyroidism, and other comorbidities who presented to the emergency department via EMS from [facility] with reports of needing IV antibiotics for urinary tract infection. A urine sample was obtained on and the urine culture grew out fluoroquinolone resistant Pseudomonas aeruginosa. She was afebrile on arrival in ED. Blood pressures have been running at the low end of normal which appears to be usual for her. Labs were significant for a WBC count of 8.2, hemoglobin 6.6 BUN 47, creatinine 2.50.
[2023-07-18 07:42] LABS: Alanine Aminotransferase 24 U/L (6-35); Albumin Level 3.5 g/dL (3.5-5.1); Alkaline Phosphatase 128 U/L (38-126); Anion Gap 4 mmol/L (4-12); Aspartate Amino Transferase 41 U/L (14-36); Bilirubin,Total 0.4 mg/dL (0.2-1.3); Blood Urea Nitrogen 38 mg/dL (7-17); Carbon Dioxide 26 mmol/L (22-30); Chloride 109 mmol/L (98-107); Estimated Glomerular Filt Rate 19; Glucose 106 mg/dL (65-110); Potassium 4.4 mmol/L (3.4-5.0); Sodium 139 mmol/L (137-145)
[2023-07-18 09:40] VITALS: BP 104/53; PULSE 93; O2SAT 92
[2023-07-18] MEDS: FERROUS SULFATE 325 MG TABLET DR BY MOUTH (09:41)
[2023-07-18] MEDS: PANTOPRAZOLE 40 MG TABLET PO ×2 (09:41→17:14)
[2023-07-18] MEDS: FOLIC ACID 1 MG TABLET PO (09:41)
[2023-07-18] MEDS: CALCIUM/VITAMIN D 500 MG/5 MCG (200 I.U.) TABLET PO ×2 (09:41→17:14)
[2023-07-18] MEDS: ASCORBIC ACID 500 MG TABLET PO (09:41)
[2023-07-18] MEDS: MAGNESIUM OXIDE 400 MG TABLET PO (09:41)
[2023-07-18] MEDS: TOLNAFTATE 1% POWDER 45 GM BTL 1 APPLIC TOPICAL ×2 (09:42→20:04)
[2023-07-18] MEDS: MULTIVITAMINS THERAPEUTIC TAB (*BKC) 1 TABLET PO (09:42)
[2023-07-18] MEDS: LACTULOSE 20 GM/30 ML UDC PO (09:44)
--- NOTE | 2023-07-18 09:44 | WPDUROPN2 ---
Progress Note: A&P Assessment and Plan (1) Asymptomatic bacteriuria: Code(s): R82.71 - Bacteriuria Status: Acute Assessment and Plan: UA grossly abnormal, however patient remains asymptomatic and no clinical findings suggestive of acute infection. Urine culture collected on 07/10/2023 with growth of fluoroquinolone resistant Pseudomonas. Review of prior cultures demonstrates history of multi-drug resistant bacteria; however suspect this is indicative of colonization of suprapubic tube and no need for ongoing antibiotics. Repeat culture at this facility with preliminary growth of gram negative rods. Will continue to monitor evolution of culture. (2) Hydronephrosis of right kidney: Code(s): N13.30 - Unspecified hydronephrosis Status: Chronic Assessment and Plan: Chronic right hydronephrosis managed by routine right ureteral stent exchanges. Last stent was exchanged 04/2023. No indication for any acute intervention at this time as stent is in expected position on imaging and renal function is stable. Continue with stent exchange as planned q 6 months (3) Kidney stones: Code(s): N20.0 - Calculus of kidney Status: Chronic Assessment and Plan: Bilateral nonobstructing renal stones that require no acute intervention (4) Chronic kidney disease, stage 4 (severe): Code(s): N18.4 - Chronic kidney disease, stage 4 (severe) Status: Acute Assessment and Plan: Renal function remains consistent with baseline, creatinine 2.4 today (5) Urinary retention: Code(s): R33.9 - Retention of urine, unspecified Status: Chronic Assessment and Plan: Continue SP tube with monthly catheter changes. Subjective Subjective Date/Time Seen: 07/18/23 09:44 Interval history: Dasia is feeling well today. Offers no complaints. Denies abdominal or suprapubic pain. Denies N/V/F/C. Tolerating diet. SP tube draining clear yellow urine. Review of Systems Review of Systems: All systems reviewed & are unremarkable except as noted in HPI and below Exam Narrative: General: Obese, chronically ill-appearing, awake, alert, resting comfortably HEENT: Normocephalic, atraumatic, sclerae anicteric Respiratory: Normal respiratory effort, no accessory muscle use Abdomen: Obese abdomen with large pannus, soft : SP tube draining clear yellow urine Skin: Normal coloration, warm and dry Neurologic:? No focal neuro deficits noted Psychiatric:? Appropriate mood and affect, judgment and insight intact Objective Data Vital Signs Vital Signs: Vital Signs - 24 hr 07/17/23 10:24 07/17/23 10:00 07/17/23 14:00 Temperature 97.9 F Pulse Rate 86 78 Respiratory Rate 16 Blood Pressure 95/56 L Pulse Oximetry 95 Oxygen Delivery Room Air 07/17/23 17:46 07/17/23 19:19 07/17/23 19:33 Temperature 97.3 F L Pulse Rate 84 86 86 Respiratory Rate 20 20 Blood Pressure 115/48 L 108/46 L Pulse Oximetry 93 93 Oxygen Delivery Room Air 07/18/23 05:37 07/18/23 09:40 Temperature 97.4 F L Pulse Rate 88 93 Respiratory Rate 20 Blood Pressure 105/53 L 104/53 L Pulse Oximetry 90 92 Oxygen Delivery Intake/Output Intake/Output: Intake & Output 07/15/23 07/16/23 07/17/23 07/18/23 23:59 23:59 23:59 23:59 Intake Total 1930 1185 240 Output Total 350 1500 600 Balance 1580 -315 -360 Meds/Results Medications: Active Medications Generic Name Dose Route Start Last Admin Trade Name Freq PRN Reason Stop Dose Admin Acetaminophen 650 mg 07/16/23 14:59 07/17/23 10:19 Acetaminophen 325 Mg Tablet PO 650 mg Q6H PRN Administration Mild Pain (1-3) or Fever Ascorbic Acid 500 mg 07/17/23 09:00 07/18/23 09:41 Ascorbic Acid 500 Mg Tablet PO 500 mg DAILY REGINA Administration Baclofen 10 mg 07/17/23 01:20 Baclofen 10 Mg Tablet PO TID PRN Muscle Spasm Bisacodyl 10 mg 07/17/23 01:20
[2023-07-18 11:02] VITALS: PULSE 66
[2023-07-18] MEDS: carvediloL 6.25 MG TABLET PO ×2 (11:02→20:01)
--- NOTE | 2023-07-18 13:01 | WPDGICN ---
GI Consult Note Consult date/time: 07/18/23 13:01 Reason for consult: positive stool occult HPI: Dasia Hernandez is a 82 year old female whom we were asked for positive stool occult. She resides at [facility]. Past medical history significant for chronic anemia, CARMINE (on oral iron) COPD, CHF, HTN, Hypothyroidism, aortic stenosis, brain aneurysm, and chronic kidney disease stage 4. She is on eliquis daily. Her daughter Ale and son in law are present with her today. She was admitted to [facility] on 07/16/2023 for UTI, needing IV antibiotic. labs were obtained which showed hgb of 6.6. MCV iron saturation was found to be low at 7% with low iron at 25. TIBC WNLs at 368, transferrin WNLs at 274. Ferritin was normal at 14.8 but at the low end of normal. Pt does have hx of chronic anemia but typically ranges in the 7, there for stool occult was obtained and found to be positive. She was transfused 1 Unit PRBC and hgb up to 7.9 on 07/15. CT scan showed Bilateral nonobstructing kidney stones. Right internal ureteral stent in expected position. Stool distending into the rectosigmoid and cholelithiasis. Patient denies any obvious blood loss. She denies any nausea, vomiting, dysphagia, reflux, or abdominal pain. She denies any prior history of gastric ulcers and gastritis. She was admitted to the hospital last year and Gi was consulted for chronic constipation and see by Dr Suarez. [facility] Past Medical History Medical History Anemia, chronic disease Aortic stenosis Reportedly she has severe aortic stenosis and is followed by a [employer] operator in [place]. Apparently she has been deemed not a surgical candidate at this time due to her other medical conditions. Brain aneurysm Chronic anticoagulation Chronic kidney disease, stage 4 (severe) Chronic obstructive pulmonary disease Colonization with multidrug-resistant bacteria Urine cultures over the years have grown ESBL E coli, multidrug resistant Proteus mirabilis, and fluoroquinolone resistant Pseudomonas aeruginosa. 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 Code status: Modified code, no CPR. Smoking packs per day: 1 Smoking cigarettes per day: 20.0 Years smoked: 20 Smoking pack-years: 20.00 Smoking status: Former smoker Second hand tobacco smoke exposure: No Alcohol intake: never Substance use: never Substance use type: does not use Do You Feel Safe in your Home?: Yes Lack of Transportation: No Lack of Food: Never True Current Housing: I Have Housing Concerned About Future Housing: No Difficulty Paying Gas/Electric Bills: No Difficulty Paying for Meds: No Currently Unemployed: No Education: Bachelor's Degree Difficulty w/ Childcare or Family Care: No Living arrangements: jail Additional living arrangements comments: [facility]. 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 Spiritual care concerns: No Meds Home Medications and Allergies Home Medications Medication Instructions Recorded Confirmed Type calcium carbonate 600 mg-vitamin 1 tablet PO BID 09/02/19 07/16/23 History D3 20 mcg (800 unit) chewable tablet (Caltrate 600 plus D) duloxetine 30 mg capsule,delayed 60 mg
[2023-07-18 13:50] VITALS: BP 110/50; PULSE 85; RESP 16; TEMP 36.1; O2SAT 94
[2023-07-18] MEDS: CEFEPIME 1 GM/NS 50 ML 1 GM/50 ML BAG IVPB (14:28)
--- NOTE | 2023-07-18 15:16 | WPDGICN ---
Assessment and Plan Assessment and plan (1) Occult blood in stools: Code(s): R19.5 - Other fecal abnormalities Status: Acute Assessment and Plan: daughter at bedside, she does not want to proceed with colonoscopy she also has advanced renal disease and this could explain part of anemia (noted hgb as low as 7 in the past) no overt gib however no recent colonoscopy, can not rule out malignancy we can always do colonoscopy as outpatient is family changes mind (2) Acute on chronic renal failure: Code(s): N17.9 - Acute kidney failure, unspecified; N18.9 - Chronic kidney disease, unspecified Status: Acute Assessment and Plan: near baseline (3) Chronic anticoagulation: Code(s): Z79.01 - residential (current) use of anticoagulants Status: Acute Assessment and Plan: on eliquis, this can also explain part of anemia but no overt gib (4) Acute on chronic anemia: Code(s): D64.9 - Anemia, unspecified Status: Acute Assessment and Plan: near baseline monitor (5) Colonization with multidrug-resistant bacteria: Code(s): Z22.322 - Carrier or suspected carrier of Methicillin resistant Staphylococcus aureus Status: Acute (6) UTI (urinary tract infection): Qualifiers: Encounter type: initial encounter Indwelling urinary catheter type: cystostomy catheter Urinary tract infection type: catheter-associated UTI Qualified Code(s): T83.510A - Infection and inflammatory reaction due to cystostomy catheter, initial encounter; N39.0 - Urinary tract infection, site not specified Code(s): N39.0 - Urinary tract infection, site not specified Status: Acute Assessment and Plan: on iv abx urology on board GI Consult Note Consult date/time: 07/18/23 15:16 Reason for consult: anemia, occult blood stool HPI: Dasia Hernandez is a 82 year old female with chronic indwelling suprapubic catheter for urinary retention and immobility, chronic kidney disease stage 4,?chronic anemia with hgb 7-9 in the past, congestive heart failure, hypertension, and other comorbidities admitted to hospital from [facility] because found to have UTI and needed IV antibiotics, recent urine sample prior hospitalization revealed fluoroquinolone resistant Pseudomonas aeruginosa. The patient herself has no complaints and denies abdominal discomfort. Labs on admission WBC count of 8.2, hemoglobin 6.6, BUN 47, creatinine 2.50 (near baseline). Urine was turbid with 2+ protein, 3+ blood, positive nitrates, 3+ leukocyte esterase, greater than 100 RBC and WBC, and 4+ bacteria. CT of the abdomen and pelvis showed bilateral nonobstructing kidney stones with a right internal ureteral stent in expected position and cholelithiasis. She was started on meropenem, no report of overt gib but occult blood in stool positive. She is not best historian but thinks that had colonoscopy more than [address] Suarez saw patient last year when she had rectal impaction and required manual disimpaction under anesthesia. Review of Systems Constitutional: Constitutional: Denies chills Eyes: Eyes: Denies blurry vision ENT: Reports Normal hearing present Cardiovascular: Cardiovascular: Denies chest pain Respiratory: Respiratory: Denies cough Gastrointestinal: Gastrointestinal: Denies abdominal pain Genitourinary: Comments: gardner Musculoskeletal: Musculoskeletal: Denies neck pain Integumentary/Breasts: Skin/Breast: Denies rash Neurologic: Denies headache(s) Psychiatric: Psychiatric: Denies behavioral changes [facility] Past Medical History Medical History Anemia, chronic disease Aortic stenosis Reportedly she has severe aortic stenosis and is followed by a motorcycle service technician in [place]. Apparently she has been deemed not a surgical candidate at this time due to her other medical conditions. Brain aneurysm Ch
[2023-07-18 17:46] LABS: Toxigenic C. Diff NEGATIVE (NEGATIVE)
[2023-07-18 20:00] VITALS: PULSE 85; RESP 16; O2SAT 94
[2023-07-18] MEDS: QUEtiapine FUMARATE 25 MG TABLET PO (20:01)
[2023-07-18] MEDS: LORATADINE 10 MG TABLET PO (20:01)
[2023-07-18 22:00] VITALS: BP 105/43; PULSE 87; RESP 16; TEMP 37.1; O2SAT 94
[2023-07-18] MEDS: TUBING, BLOOD SET 1 EACH XX (23:23)
[2023-07-19 05:30] LABS: Hemoglobin 7.7 g/dL (12.0-15.0); Mean Corpuscular HGB Conc 28.5 g/dl (32-36); Mean Corpuscular Volume 84.1 fl (80-100); Mean Platelet Volume 8.8 fl (7.4-10.4); Platelet Count Result 269 k/mm3 (150-375); Red Blood Count 3.21 M/mm3 (4.2-5.4); Red Cell Distribution Width 18.5 % (11.5-14.5); White Blood Count 8.7 K/mm3 (4.5-10.0)
[2023-07-19 05:46] LABS: Alanine Aminotransferase 18 U/L (6-35); Albumin Level 3.7 g/dL (3.5-5.1); Alkaline Phosphatase 108 U/L (38-126); Anion Gap 4 mmol/L (4-12); Aspartate Amino Transferase 27 U/L (14-36); Bilirubin,Total 0.4 mg/dL (0.2-1.3); Blood Urea Nitrogen 39 mg/dL (7-17); Calcium 8.9 mg/dL (8.4-10.2); Carbon Dioxide 28 mmol/L (22-30); Chloride 107 mmol/L (98-107); Estimated Glomerular Filt Rate 18; Glucose 106 mg/dL (65-110); Potassium 4.6 mmol/L (3.4-5.0); Sodium 139 mmol/L (137-145)
[2023-07-19 06:00] VITALS: BP 117/48; PULSE 83; RESP 16; TEMP 36.8; O2SAT 93
--- NOTE | 2023-07-19 07:11 | P.PNIM_ITS ---
Progress Note: A&P Assessment and Plan (1) Asymptomatic bacteriuria: Code(s): R82.71 - Bacteriuria Status: Acute (2) Acute on chronic anemia: Code(s): D64.9 - Anemia, unspecified Status: Acute (3) Positive urine culture: Code(s): R82.79 - Other abnormal findings on microbiological examination of urine Status: Acute (4) Ureteral stent present: Code(s): Z96.0 - Presence of urogenital implants Status: Acute (5) Chronic kidney disease, stage 4 (severe): Code(s): N18.4 - Chronic kidney disease, stage 4 (severe) Status: Acute (6) Occult blood in stools: Code(s): R19.5 - Other fecal abnormalities Status: Acute (7) Hydronephrosis of right kidney: Code(s): N13.30 - Unspecified hydronephrosis Status: Chronic (8) Chronic anticoagulation: Code(s): Z79.01 - 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 worker (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9 - Iron deficiency anemia, unspecified Code(s): D50.9 - Iron deficiency anemia, unspecified Status: Acute (13) Physical deconditioning: Code(s): R53.81 - Other malaise Status: Acute (14) ANNE and COPD overlap syndrome: Code(s): G47.33 - Obstructive sleep apnea (adult) (pediatric); J44.9 - Chronic obstructive pulmonary disease, unspecified Status: Acute Plan Chronic right hydronephrosis * Urology consulted * Right stent correct positioning recommend exchange in 6 months * Chronic suprapubic indwelling catheter UTI * Acute on chronic * HX of ESBL * Last UA 5/7 with Pseudomonas * Likely colonization the suprapubic tube * Follow-up UA showing g negative bacilli * IV meropenem pending cultures 07/18 * ECOLI * on meropenem Anemia * History iron deficiency anemia as well as CKD * HGB 6.6 POA * Patient received 1 unit PRBCs * Holding Eliquis at this time * Positive occult stool * GI consulted * PPI BID * H&H daily * Transfuse if Hgb <7.0 07/18: * Refused EGD/colonoscopy * Hgb stable today * will resume eliquis and monitor Hgb Chronic wounds * Wound consulted * Physically deconditioned HX : HTN: Resume home medications HX COPD: Stable Code status: Full code per patient DVT prophylaxis: Eliquis held/Scd's Stress ulcer prophylaxis: Protonix 40 BID PT/OT notes: NA Disposition: Patient admitted for UTI with HX of ESBL currently pending UA and anemia with positive occult stool GI consulted. Plan is for patient to return to [facility] when stable pending UA and GI recommendations. Time Spent With Patient Time with patient: 15 - 25 minutes Subjective Date/time seen: 07/19/23 07:11 Interval history: Admission: Medical Record 82-year-old female with chronic indwelling suprapubic cathete
--- NOTE | 2023-07-19 07:11 | PM.IMPN ---
Progress Note: A&P Assessment and Plan (1) Asymptomatic bacteriuria: Code(s): R82.71 - Bacteriuria Status: Acute (2) Acute on chronic anemia: Code(s): D64.9 - Anemia, unspecified Status: Acute (3) Positive urine culture: Code(s): R82.79 - Other abnormal findings on microbiological examination of urine Status: Acute (4) Ureteral stent present: Code(s): Z96.0 - Presence of urogenital implants Status: Acute (5) Chronic kidney disease, stage 4 (severe): Code(s): N18.4 - Chronic kidney disease, stage 4 (severe) Status: Acute (6) Occult blood in stools: Code(s): R19.5 - Other fecal abnormalities Status: Acute (7) Hydronephrosis of right kidney: Code(s): N13.30 - Unspecified hydronephrosis Status: Chronic (8) Chronic anticoagulation: Code(s): Z79.01 - long term acute care registered nurse (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9 - Iron deficiency anemia, unspecified Code(s): D50.9 - Iron deficiency anemia, unspecified Status: Acute (13) Physical deconditioning: Code(s): R53.81 - Other malaise Status: Acute (14) ANNE and COPD overlap syndrome: Code(s): G47.33 - Obstructive sleep apnea (adult) (pediatric); J44.9 - Chronic obstructive pulmonary disease, unspecified Status: Acute Plan Chronic right hydronephrosis Urology consulted Right stent correct positioning recommend exchange in 6 months Chronic suprapubic indwelling catheter UTI Acute on chronic HX of ESBL Last UA 07/09 with Pseudomonas Likely colonization the suprapubic tube Follow-up UA showing g negative bacilli IV meropenem pending cultures 07/18 ECOLI on meropenem Anemia History iron deficiency anemia as well as CKD HGB 6.6 POA Patient received 1 unit PRBCs Holding Eliquis at this time Positive occult stool GI consulted PPI BID H&H daily Transfuse if Hgb <7.0 07/18: Refused EGD/colonoscopy Hgb stable today will resume eliquis and monitor Hgb Chronic wounds Wound consulted Physically deconditioned HX : HTN: Resume home medications HX COPD: Stable Code status: Full code per patient DVT prophylaxis: Eliquis held/Scd's Stress ulcer prophylaxis: Protonix 40 BID PT/OT notes: NA Disposition: Patient admitted for UTI with HX of ESBL currently pending UA and anemia with positive occult stool GI consulted. Plan is for patient to return to [facility] when stable pending UA and GI recommendations. Time Spent With Patient Time with patient: 15 - 25 minutes Subjective Date/time seen: 07/19/23 07:11 Interval history: Admission: Medical Record 82-year-old female with chronic indwelling suprapubic catheter for urinary retention and immobility, chronic indwelling ureteral stent, chronic kidney disease,? anemia, congestive heart failure, hypertension, hypothyroidism, and other comorbidities who presented to the emergency department via EMS from [facility] with reports of needing IV antibiotics for urinary tract infection. A urine sample was obtained on and the urine culture grew out fluoroquinolone resistant Pseudomonas aeruginosa. She was afebrile on arrival in ED. Blood pressures have been running at the low end of normal w
--- NOTE | 2023-07-19 09:00 | WPDUROPN2 ---
Progress Note: A&P Assessment and Plan (1) Asymptomatic bacteriuria: Code(s): R82.71 - Bacteriuria Status: Acute Assessment and Plan: UA grossly abnormal, however patient remains asymptomatic and no clinical findings suggestive of acute infection. Urine culture collected on 07/10/2023 with growth of fluoroquinolone resistant Pseudomonas. Review of prior cultures demonstrates history of multi-drug resistant bacteria; however suspect this is indicative of colonization of suprapubic tube and no need for ongoing antibiotics. Repeat culture at this facility with growth of ESBL E. coli, again suspect this to be due to colonization. (2) Hydronephrosis of right kidney: Code(s): N13.30 - Unspecified hydronephrosis Status: Chronic Assessment and Plan: Chronic right hydronephrosis managed by routine right ureteral stent exchanges. Last stent was exchanged 04/2023. No indication for any acute intervention at this time as stent is in expected position on imaging and renal function is stable. Continue with stent exchange as planned q 6 months (3) Kidney stones: Code(s): N20.0 - Calculus of kidney Status: Chronic Assessment and Plan: Bilateral nonobstructing renal stones that require no acute intervention (4) Chronic kidney disease, stage 4 (severe): Code(s): N18.4 - Chronic kidney disease, stage 4 (severe) Status: Acute Assessment and Plan: Renal function remains consistent with baseline, creatinine 2.6 today (5) Urinary retention: Code(s): R33.9 - Retention of urine, unspecified Status: Chronic Assessment and Plan: Continue SP tube with monthly catheter changes. Subjective Subjective Date/Time Seen: 07/19/23 09:00 Interval history: Dasia is asleep today during my encounter. Appears to be resting comfortably. No acute events noted overnight. Review of Systems Review of Systems: ROS unobtainable: Yes unobtainable due to medical condition Exam Narrative: General:? Obese, chronically ill-appearing, asleep, resting comfortably HEENT:? Normocephalic, atraumatic, sclerae anicteric Respiratory:? Normal respiratory effort, no accessory muscle use Abdomen:? Obese abdomen with large pannus, soft :? SP tube draining clear yellow urine Skin:? Normal coloration, warm and dry Objective Data Vital Signs Vital Signs: Vital Signs - 24 hr 07/18/23 20:00 07/18/23 22:00 07/19/23 06:00 Temperature 98.8 F 98.3 F Pulse Rate 85 87 83 Respiratory Rate 16 16 16 Blood Pressure 105/43 L 117/48 L Pulse Oximetry 94 94 93 Oxygen Delivery Room Air 07/19/23 09:35 07/19/23 09:36 07/19/23 10:47 Temperature 98.3 F Pulse Rate 87 87 Respiratory Rate 16 Blood Pressure 147/60 H Pulse Oximetry 95 Oxygen Delivery 07/19/23 09:35 07/19/23 14:47 Temperature 97.4 F L Pulse Rate 81 Respiratory Rate 18 Blood Pressure 101/42 L Pulse Oximetry 96 Oxygen Delivery Room Air Intake/Output Intake/Output: Intake & Output 07/16/23 07/17/23 07/18/23 07/19/23 23:59 23:59 23:59 23:59 Intake Total 1930 1185 995 990 Output Total 350 1500 1750 800 Balance 3623 -818 -342 190 Meds/Results Medications: Active Medications Generic Name Dose Route Start Last Admin Trade Name Freq PRN Reason Stop Dose Admin Acetaminophen 650 mg 07/16/23 14:59 07/19/23 09:47 Acetaminophen 325 Mg Tablet PO 650 mg Q6H PRN Administration Mild Pain (1-3) or Fever Apixaban 2.5 mg 07/19/23 09:00 07/19/23 09:30 Apixaban 2.5 Mg Tablet PO 2.5 mg BID REGINA Administration Ascorbic Acid 500 mg 07/17/23 09:00 07/19/23 09:33 Ascorbic Acid 500 Mg Tablet PO 500 mg DAILY REGINA Administration Baclofen 10 mg 07/17/23 01:20 Baclofen 10 Mg Tablet PO TID PRN Muscle Spasm Bisacodyl 10 mg 07/17/23 01:20 Bisacodyl 10 Mg Suppository RECTAL DAILY PRN Constipation Calcium
[2023-07-19] MEDS: APIXABAN 2.5 MG TABLET PO (09:30)
[2023-07-19] MEDS: FOLIC ACID 1 MG TABLET PO (09:33)
[2023-07-19] MEDS: ASCORBIC ACID 500 MG TABLET PO (09:33)
[2023-07-19] MEDS: FERROUS SULFATE 325 MG TABLET DR BY MOUTH (09:33)
[2023-07-19] MEDS: MAGNESIUM OXIDE 400 MG TABLET PO (09:33)
[2023-07-19] MEDS: PANTOPRAZOLE 40 MG TABLET PO (09:33)
[2023-07-19] MEDS: MULTIVITAMINS THERAPEUTIC TAB (*BKC) 1 TABLET PO (09:33)
[2023-07-19] MEDS: TOLNAFTATE 1% POWDER 45 GM BTL 1 APPLIC TOPICAL (09:34)
[2023-07-19] MEDS: MEROPENEM 500 MG in SODIUM CHLORIDE 0.9% IV 100 ML 200 ML IVPB (09:34)
[2023-07-19] MEDS: LACTULOSE 20 GM/30 ML UDC PO (09:34)
[2023-07-19] MEDS: CALCIUM/VITAMIN D 500 MG/5 MCG (200 I.U.) TABLET PO (09:34)
[2023-07-19 09:35] VITALS: BP 147/60; PULSE 87; RESP 16; O2SAT 95
[2023-07-19 09:36] VITALS: PULSE 87
[2023-07-19] MEDS: carvediloL 6.25 MG TABLET PO (09:36)
[2023-07-19] MEDS: ACETAMINOPHEN 325 MG TABLET 650 MG PO (09:47)
[2023-07-19 10:47] VITALS: TEMP 36.8
--- NOTE | 2023-07-19 12:58 | P.DS_ITS ---
DS: Admitting Diagnosis Discharge Date 07/19/2023 Admitting Diagnosis Urinary tract infection DS: Discharge Diagnosis Discharge Diagnosis (1) Asymptomatic bacteriuria: Code(s): R82.71 - Bacteriuria Status: Acute (2) Acute on chronic anemia: Code(s): D64.9 - Anemia, unspecified Status: Acute (3) Positive urine culture: Code(s): R82.79 - Other abnormal findings on microbiological examination of urine Status: Acute (4) Ureteral stent present: Code(s): Z96.0 - Presence of urogenital implants Status: Acute (5) Chronic kidney disease, stage 4 (severe): Code(s): N18.4 - Chronic kidney disease, stage 4 (severe) Status: Acute (6) Occult blood in stools: Code(s): R19.5 - Other fecal abnormalities Status: Acute (7) Hydronephrosis of right kidney: Code(s): N13.30 - Unspecified hydronephrosis Status: Chronic (8) Chronic anticoagulation: Code(s): Z79.01 - FPC (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9 - Iron deficiency anemia, unspecified Code(s): D50.9 - Iron deficiency anemia, unspecified Status: Acute (13) Physical deconditioning: Code(s): R53.81 - Other malaise Status: Acute (14) ANNE and COPD overlap syndrome: Code(s): G47.33 - Obstructive sleep apnea (adult) (pediatric); J44.9 - Chronic obstructive pulmonary disease, unspecified Status: Acute Plan Chronic right hydronephrosis * Urology consulted * Right stent correct positioning recommend exchange in 6 months * Chronic suprapubic indwelling catheter UTI * Acute on chronic * HX of ESBL * Last UA 07/09 with Pseudomonas * Likely colonization the suprapubic tube * Follow-up UA showing g negative bacilli * IV meropenem pending cultures 07/18 * ECOLI * on meropenem Anemia * History iron deficiency anemia as well as CKD * HGB 6.6 POA * Patient received 1 unit PRBCs * Holding Eliquis at this time * Positive occult stool * GI consulted * PPI BID * H&H daily * Transfuse if Hgb <7.0 07/18: * Refused EGD/colonoscopy * Hgb stable today * will resume eliquis and monitor Hgb Chronic wounds * Wound consulted * Physically deconditioned HX : HTN: Resume home medications HX COPD: Stable Disposition: Patient discharged to SNF with midline for 7 day course ertapenem IV. DS: Summary Hospital Course Reason for hospitalization: Acute on chronic urinary tract infection Hospital Course: Admission: Medical Record 82-year-old female with chronic indwelling suprapubic catheter for urinary retention and immobility, chronic indwelling ureteral stent, chronic kidney disease,? anemia, congestive heart failure, hypertension, hypothyroidism, and other comorb
--- NOTE | 2023-07-19 12:58 | PM.DS ---
DS: Admitting Diagnosis Discharge Date 07/19/2023 Admitting Diagnosis Urinary tract infection DS: Discharge Diagnosis Discharge Diagnosis (1) Asymptomatic bacteriuria: Code(s): R82.71 - Bacteriuria Status: Acute (2) Acute on chronic anemia: Code(s): D64.9 - Anemia, unspecified Status: Acute (3) Positive urine culture: Code(s): R82.79 - Other abnormal findings on microbiological examination of urine Status: Acute (4) Ureteral stent present: Code(s): Z96.0 - Presence of urogenital implants Status: Acute (5) Chronic kidney disease, stage 4 (severe): Code(s): N18.4 - Chronic kidney disease, stage 4 (severe) Status: Acute (6) Occult blood in stools: Code(s): R19.5 - Other fecal abnormalities Status: Acute (7) Hydronephrosis of right kidney: Code(s): N13.30 - Unspecified hydronephrosis Status: Chronic (8) Chronic anticoagulation: Code(s): Z79.01 - halfway (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9 - Iron deficiency anemia, unspecified Code(s): D50.9 - Iron deficiency anemia, unspecified Status: Acute (13) Physical deconditioning: Code(s): R53.81 - Other malaise Status: Acute (14) ANNE and COPD overlap syndrome: Code(s): G47.33 - Obstructive sleep apnea (adult) (pediatric); J44.9 - Chronic obstructive pulmonary disease, unspecified Status: Acute Plan Chronic right hydronephrosis Urology consulted Right stent correct positioning recommend exchange in 6 months Chronic suprapubic indwelling catheter UTI Acute on chronic HX of ESBL Last UA 07/09 with Pseudomonas Likely colonization the suprapubic tube Follow-up UA showing g negative bacilli IV meropenem pending cultures 07/18 ECOLI on meropenem Anemia History iron deficiency anemia as well as CKD HGB 6.6 POA Patient received 1 unit PRBCs Holding Eliquis at this time Positive occult stool GI consulted PPI BID H&H daily Transfuse if Hgb <7.0 07/18: Refused EGD/colonoscopy Hgb stable today will resume eliquis and monitor Hgb Chronic wounds Wound consulted Physically deconditioned HX : HTN: Resume home medications HX COPD: Stable Disposition: Patient discharged to SNF with midline for 7 day course ertapenem IV. DS: Summary Hospital Course Reason for hospitalization: Acute on chronic urinary tract infection Hospital Course: Admission: Medical Record 82-year-old female with chronic indwelling suprapubic catheter for urinary retention and immobility, chronic indwelling ureteral stent, chronic kidney disease,? anemia, congestive heart failure, hypertension, hypothyroidism, and other comorbidities who presented to the emergency department via EMS from [facility] with reports of needing IV antibiotics for urinary tract infection. A urine sample was obtained on and the urine culture grew out?fluoroquinolone resistant Pseudomonas aeruginosa. She was afebrile on arrival in ED. Blood pressures have been running at the low end of normal which appears to be usual for her. Labs were significant for a WBC count of 8.2, hemoglobin 6.6 BUN 47, creatinine 2.50. Urine was turbid with 2+ protein, 3+ blood, positive nitrates, 3+ leuko
[2023-07-19] MEDS: LIDOCAINE HCL 1% LOCAL INJ 2 ML AMPUL 5 ML INFILTRATE (13:00)
[2023-07-19 14:18] LABS: SARS-CoV-2 RNA PCR Negative (Negative)
--- NOTE | 2023-07-19 14:27 | WPDGIPROGNO ---
Progress Note: A&P Assessment and Plan (1) Acute on chronic anemia: Code(s): D64.9 - Anemia, unspecified Status: Acute Assessment and Plan: hgb low but stable at this time she does not want colonoscopy. advised to call office if she changes her mind (2) Occult blood in stools: Code(s): R19.5 - Other fecal abnormalities Status: Acute (3) Positive urine culture: Code(s): R82.79 - Other abnormal findings on microbiological examination of urine Status: Acute Assessment and Plan: will complete iv treatment (4) Colonization with multidrug-resistant bacteria: Code(s): Z22.322 - Carrier or suspected carrier of Methicillin resistant Staphylococcus aureus Status: Acute (5) Hydronephrosis of right kidney: Code(s): N13.30 - Unspecified hydronephrosis Status: Chronic Assessment and Plan: stent in position, follow-up with urology Subjective Date/time seen: 07/19/23 14:27 Interval history: no issues, she will be discharged today after IV line placement to complete antibiotic Review of Systems Review of Systems: All systems reviewed & are unremarkable except as noted in HPI and below Exam Const: General: comfortable Other: chronically ill appearing HENMT: Face/Nose/Sinus: Normal nares present Eyes: Sclera: sclerae normal Neck: Neck: supple Resp: Effort & Inspection: normal respiratory effort Cardio: Rate: regular rate GI: GI Palp: Yes Soft to palpation and No Tenderness to palpation present (GI) Auscultation: normal bowel sounds Urinary Catheter: Urinary Catheter: patent and draining Skin: General skin exam: normal color Neuro: Speech: normal speech Extrem: General: normal to inspection Psych: Affect: normal affect Objective Data Vital Signs Vital Signs: Vital Signs - 24 hr 07/18/23 20:00 07/18/23 22:00 07/19/23 06:00 Temperature 98.8 F 98.3 F Pulse Rate 85 87 83 Respiratory Rate 16 16 16 Blood Pressure 105/43 L 117/48 L Pulse Oximetry 94 94 93 Oxygen Delivery Room Air 07/19/23 09:35 07/19/23 09:36 07/19/23 10:47 Temperature 98.3 F Pulse Rate 87 87 Respiratory Rate 16 Blood Pressure 147/60 H Pulse Oximetry 95 Oxygen Delivery 07/19/23 09:35 Temperature Pulse Rate Respiratory Rate Blood Pressure Pulse Oximetry Oxygen Delivery Room Air Intake/Output Intake/Output: Intake & Output 07/16/23 07/17/23 07/18/23 07/19/23 23:59 23:59 23:59 23:59 Intake Total 1930 1185 995 990 Output Total 350 1500 1750 500 Balance 9750 -353 -360 490 Meds/Results Medications: Active Medications Generic Name Dose Route Start Last Admin Trade Name Freq PRN Reason Stop Dose Admin Acetaminophen 650 mg 07/16/23 14:59 07/19/23 09:47 Acetaminophen 325 Mg Tablet PO 650 mg Q6H PRN Administration Mild Pain (1-3) or Fever Apixaban 2.5 mg 07/19/23 09:00 07/19/23 09:30 Apixaban 2.5 Mg Tablet PO 2.5 mg BID REGINA Administration Ascorbic Acid 500 mg 07/17/23 09:00 07/19/23 09:33 Ascorbic Acid 500 Mg Tablet PO 500 mg DAILY REGINA Administration Baclofen 10 mg 07/17/23 01:20 Baclofen 10 Mg Tablet PO TID PRN Muscle Spasm Bisacodyl 10 mg 07/17/23 01:20 Bisacodyl 10 Mg Suppository RECTAL DAILY PRN Constipation Calcium Carbonate 500 mg 07/17/23 09:00 07/19/23 09:34 Calcium/Vitamin D 500 Mg/5 Mcg (200 I.U.) Tablet PO 500 mg BID REGINA Administration Carvedilol 6.25 mg 07/17/23 09:00 07/19/23 09:36 Carvedilol 6.25 Mg Tablet PO 6.25 mg Q12HR REGINA Administration Ferrous Sulfate 325 mg 07/17/23 09:00 07/19/23 09:33 Ferrous Sulfate [address] BY MOUTH 325 mg DAILY REGINA Administration Folic Acid 1 mg 07/17/23 09:00 07/19/23 09:33 Folic Acid 1 Mg Tablet PO 1 mg DAILY REGINA Administration Meropenem 500 mg/ Sodium 100 mls @ 200 mls/hr 07/19/23 09:00 07/19/23 09:34 Chloride IVPB
[2023-07-19 14:47] VITALS: BP 101/42; PULSE 81; RESP 18; TEMP 36.3; O2SAT 96
== END 2023-07-19 15:40 ==
LOC: ANHED 12:27 → ANH2MED 15:06
PROVIDERS: Nurse Practitioner; Nurse Practitioner Family; Physician Assistant; Admitting Provider Internal Medicine; Emergency Provider Physician Assistant; PCP Internal Medicine; Visit Provider General Practice
DX: N39.0 Urinary tract infection, site not specified (principal); B96.20 Unspecified Escherichia coli [E. coli] as the cause of diseases classified elsewhere; N13.30 Unspecified hydronephrosis; N17.9 Acute kidney failure, unspecified; Z96.0 Presence of urogenital implants; I13.0 Hypertensive heart and chronic kidney disease with heart failure and stage 1 through stage 4 chronic kidney disease, or unspecified chronic kidney disease; I50.9 Heart failure, unspecified; N18.4 Chronic kidney disease, stage 4 (severe); D63.1 Anemia in chronic kidney disease; R53.81 Other malaise; R33.8 Other retention of urine; R19.5 Other fecal abnormalities; N20.0 Calculus of kidney; I35.0 Nonrheumatic aortic (valve) stenosis; T14.8XXA Other injury of unspecified body region, initial encounter; J44.9 Chronic obstructive pulmonary disease, unspecified; F41.8 Other specified anxiety disorders; E03.9 Hypothyroidism, unspecified; G47.33 Obstructive sleep apnea (adult) (pediatric); Z11.52 Encounter for screening for COVID-19; E66.01 Morbid (severe) obesity due to excess calories; Z68.41 Body mass index [BMI] 40.0-44.9, adult; Z87.891 Personal history of nicotine dependence; Z16.23 Resistance to quinolones and fluoroquinolones; Z79.01 Long term (current) use of anticoagulants; Z22.322 Carrier or suspected carrier of Methicillin resistant Staphylococcus aureus; X58.XXXA Exposure to other specified factors, initial encounter
CPT/HCPCS: 36415; 36430; 36569; 51705; 74176; 80048; 80053; 81001; 82274; 82607; 82728; 82746; 83540; 83550; 83605; 83615; 83735; 84443; 84466; 85014; 85018; 85025; 85027; 85046; 86850; 86900; 86901; 86923; 87040; 87077; 87086; 87088; 87186; 87493; 87635; 96361; 96365; 96367; 96375; 99285; A9270; G0378; J0692; J2185; J7030; J7050; P9016

== ENCOUNTER 2023-11-18 05:53 | Inpatient (IN) | payer MEDICARE, SELFPAY ==
[2023-11-18] VITALS (7 sets, daily range): BP systolic 105–160; BP diastolic 48–132; PULSE 94–104; RESP 12–20; TEMP 36.3–36.8; O2SAT 95–100; BMI 34.4
--- NOTE | ~2023-11-18 | CT_ITS ---
EXAMINATION: CT abdomen pelvis wo con DATE: 11/18/2023 09:05 INDICATION: Abdominal pain TECHNIQUE: Computed tomography (CT) of the abdomen and pelvis was performed without intravenous contr ast. Automated exposure control and iterative reconstruction technique were employed. The dose-length product was 1287.05 mGy-cm. COMPARISON: 07/16/2023 FINDINGS: Minimal bibasilar atelectasis. Heart size is normal. Aortic valve and mitral annular calcification. N o pericardial or pleural effusion. Several rim calcified gallstones in the otherwise normal-appearing gallbladder with no evident wall thickening or pericholecystic stranding to suggest acute cholecysti tis. Liver, spleen, pancreas and bilateral adrenal glands are normal. Again seen is mild cortical thi nning at both kidneys. There is also bilateral nephrolithiasis with a couple stones the largest measu ring 4 mm in the left kidney and multiple stones or stone fragments in an upper pole calyx of the rig ht kidney and measuring up to 12 mm in the right renal pelvis. There is a right internal ureteral ashley nt with proximal loop formed in the pelvis and distal loop in the bladder. No ureteral stones or hydr onephrosis. Suprapubic Colindres catheter within the decompressed bladder. There is mild scattered coloni c diverticulosis without adjacent comparison to suggest diverticulitis. Large collection of stool at the rectum and distal sigmoid colon measuring up to 8.3 cm. Moderate amount of stool scattered throug hout the more proximal colon. Small bowel and appendix are normal. No free intraperitoneal gas or flu id. No pathologically enlarged abdominal or pelvic lymphadenopathy. Severe lumbar spondylosis with br idging osteophytes at multiple levels in the lumbar and lower thoracic consistent with diffuse idiopa thic skeletal hyperostosis (DISH). In addition there is fusion across the L1-L4 disc spaces as well a s across multiple bilateral lumbar facet joints. Advanced left and moderate to severe right hip osteo arthritis. IMPRESSION: 1. Cholelithiasis. 2. Bilateral nonobstructing renal stones with right internal ureteral stent and suprapubic Colindres cath eter in expected positions. No hydronephrosis. 3. Persistent large amount of stool at the rectosigmoid colon which could be seen with constipation a nd fecal impaction. Reviewed, dictated and finalized at location A. IMPRESSION: 1. Cholelithiasis. 2. Bilateral nonobstructing renal stones with right internal ureteral stent and suprapubic Colindres catheter in expected positions. No hydronephrosis. 3. Persistent large amount of stool at the rectosigmoid colon which could be se en with constipation and fecal impaction.
--- NOTE | ~2023-11-18 | CT_ITS ---
EXAMINATION: CT brain wo con DATE: 11/18/2023 09:05 INDICATION: Altered mental status TECHNIQUE: Computed tomography (CT) of the head was performed without intravenous contrast. Sagittal and coronal reconstructions were performed. The mA was adjusted according to patient size. Iterative reconstruction technique was employed. The dose-length product was 756.67 mGy-cm. COMPARISON: head CT dated 03/29/2021 FINDINGS: Again seen is a right frontotemporal craniotomy with plate and screw fixations. Chronic underlying en cephalomalacia in the anterior right frontal lobe and anterior most right temporal lobe. There is add itional screw fixation along the anterolateral rim of the right orbit. No acute intracranial hemorrha ge, acute infarction or abnormal extra axial fluid collection. Small old lacunar infarct at the right basal ganglia. Ventricles are normal and symmetric. No mass/mass effect. The orbits, paranasal sinus es and mastoid air cells are normal. IMPRESSION: 1. No acute intracranial process. 2. Right frontotemporal craniotomy overlying large region of chronic encephalomalacia in the anterior right frontal lobe and small region in the anterior right temporal lobe which could represent sequel a prior infarct or trauma. 2. Small lacunar infarcts at the right basal ganglia. Reviewed, dictated and finalized at location A. IMPRESSION: 1. No acute intracranial process. 2. Right frontotemporal craniotomy overlying large region of chronic encephalom alacia in the anterior right frontal lobe and small region in the anterior righ t temporal lobe which could represent sequela prior infarct or trauma. 2. Small lacunar infarcts at the right basal ganglia.
--- NOTE | ~2023-11-18 | XR_ITS ---
EXAMINATION: XR chest 1V portable DATE: 11/18/2023 08:45 INDICATION: Weakness TECHNIQUE: frontal view of the chest was obtained. COMPARISON: Chest radiograph dated 08/11/2022 FINDINGS: Unchanged mild linear atelectasis/scarring at the left costophrenic angle. No other airspace opacitie s, pulmonary edema, pleural effusion or pneumothorax. The cardiomediastinal silhouette is normal. Sev ere osteoarthritis at the bilateral glenohumeral joints. IMPRESSION: 1. No acute cardiopulmonary disease. Reviewed, dictated and finalized at location A.
--- NOTE | 2023-11-18 06:01 | ECG_ITS ---
Test Date: 2023-11-18 06:03:58 Measurements Intervals [place] Rate: 102 P: 64 MN: 146 QRS: 60 QRSD: 90 T: 49 QT: 335 QTc: 438 Interpretive Statements SINUS TACHYCARDIA BASELINE ARTIFACT- I, II, III, AVR, AVL, AVF, V1-V6 BORDERLINE ECG No previous ECG available for comparison Electronically Signed On 11-18-2023 06:42:21 CDT by Nick Arreola D.O.
--- NOTE | 2023-11-18 06:29 | ED.GENADULT ---
HPI - General Adult General Chief complaint: Altered Mental Status <Dwight Chamberlain MD - Last Filed: 11/18/23 06:37> Stated complaint: altered <Dwight Chamberlain MD - Last Filed: 11/18/23 06:37> Time Seen by Provider: 11/18/23 05:58 <Dwight Chamberlain MD - Last Filed: 11/18/23 06:37> History of Present Illness HPI narrative: Patient is a 82-year-old female who presents emergency department with chief complaint of altered mental status the patient was brought in by EMS for altered mental status. The patient has prior history of urinary tract infections has a chronic suprapubic catheter. The family has noticed that she has had a brownish colored drainage in the urine from the suprapubic catheter site <Dwight Chamberlain MD - Last Filed: 11/18/23 06:37> Related Data Home medications: Home Medications Medication Instructions Recorded Confirmed calcium carbonate 600 mg-vitamin 1 tablet PO BID 09/02/19 07/16/23 D3 20 mcg (800 unit) chewable tablet (Caltrate 600 plus D) duloxetine 30 mg capsule,delayed 60 mg PO DAILY 09/02/19 07/16/23 release ascorbic acid (vitamin C) 500 mg 500 mg PO DAILY 03/30/21 07/16/23 tablet ferrous sulfate 325 mg (65 mg 325 mg PO DAILY 03/30/21 07/16/23 iron) tablet folic acid 1 mg tablet 1 mg PO DAILY 03/30/21 07/16/23 quetiapine 25 mg tablet 25 mg PO HS 03/30/21 07/16/23 amino acids-protein hydrolysate 17 1 ea PO BID 12/14/21 07/16/23 gram-100 kcal/30 mL oral liquid (Pro-Stat AWC) bisacodyl 10 mg rectal suppository 10 mg RECTAL DAILY PRN Constipation 12/14/21 07/16/23 multivitamin 1 tablet PO DAILY 12/14/21 07/16/23 polyethylene glycol 3350 17 17 g PO BID PRN Constipation 12/14/21 07/16/23 gram/dose oral powder (Miralax) cetirizine 10 mg tablet (Zyrtec) 10 mg PO HS 04/19/22 07/16/23 omeprazole 40 mg capsule,delayed 40 mg PO DAILY 08/11/22 07/16/23 release acetaminophen 500 mg tablet 500 mg PO BID PRN Pain 08/24/22 07/16/23 baclofen 10 mg tablet 10 mg PO TID PRN Muscle Spasm 03/27/23 07/16/23 glucosamine-chondroitin 250 mg-200 1 tablet PO DAILY 03/27/23 07/16/23 mg tablet (Osteo Bi-Flex) hydroxyzine HCl 25 mg tablet 25 mg PO Q6H PRN Itching 03/27/23 07/16/23 <Dwight Chamberlain MD - Last Filed: 11/18/23 06:37> Allergies/adverse reactions: Allergies Allergy/AdvReac Type Severity Reaction Status Date / Time phenytoin [From Dilantin] Allergy Mild Hives Verified 11/18/23 09:27 Sulfa (Sulfonamide Allergy Unknown Unknown Verified 11/18/23 09:27 Antibiotics) pregabalin [From Lyrica] AdvReac Unknown DIZZY, Verified 11/18/23 09:27 SEDATED <Dwight Chamberlain MD - Last Filed: 11/18/23 06:37> Review of Systems Review of Systems: A 10 system review of systems was completed on the patient and is negative except for what is stated in the HPI. Nursing and ancillary documentation was reviewed. <Dwight Chamberlain MD - Last Filed: 11/18/23 06:37> [facility] Past Medical History Medical History: Medical History Anemia, chronic disease Aortic stenosis Reportedly she has severe aortic stenosis and is followed by a rural health consultant in [place]. Apparently she has been deemed not a surgical candidate at this time due to her other medical conditions. Brain aneurysm Chronic anticoagulation Chronic kidney disease, stage 4 (severe) Chronic obstructive pulmonary disease Colonization with multidrug-resistant bacteria Urine cultures over the years have grown ESBL E coli, multidrug resistant Proteus mirabilis, and fluoroquinolone resistant Pseudomonas aeruginosa. Congestive heart failure Depression with anxiety Hypertension Hypothyroidism Iron deficiency anemia Morbid obesity Overlap syndrome of obstructive sleep apnea and chronic obstructive pulmonary disease <Dwight Chamberlain MD - Last Filed: 11/18/23 06:37> Surgical His
[2023-11-18 06:30] LABS: Basophils Percent Auto 0.3 % (0.2-1.2); Eosinophils Absolute Auto 0.3 K/mm3 (0-0.3); Eosinophils Percent Auto 3.2 % (0-4.4); Hematocrit 27.1 % (37.0-47.0); Hemoglobin 7.9 g/dL (12.0-15.0); Immature Granulocyte Absolute 0.05 K/mm3 (0.00-0.031); Immature Granulocyte Percent A 0.5 % (0-0.5); Lymphocytes Absolute Auto 0.74 K/mm3 (0.9-3.2); Lymphocytes Percent Auto 7.8 % (18.3-44.2); Mean Corpuscular HGB Conc 29.2 g/dl (32-36); Mean Corpuscular Volume 78.8 fl (80-100); Mean Platelet Volume 9.2 fl (7.4-10.4); Monocytes Absolute Auto 0.5 K/mm3 (0.1-0.6); Monocytes Percent Auto 5.1 % (2.6-8.5); Neutrophils Absolute Auto 7.9 K/mm3 (1.3-6.7); Neutrophils Percent Auto 83.1 % (45.5-73.1); Platelet Count Result 338 k/mm3 (150-375); Red Blood Count 3.44 M/mm3 (4.2-5.4); White Blood Count 9.5 K/mm3 (4.5-10.0)
[2023-11-18 06:41] LABS: Lactic Acid Reflex 1.2 mmol/L (0.7-2.0)
[2023-11-18 06:42] LABS: INR 1.3; Prothrombin Time 16.3 Seconds (11.1-14.7)
[2023-11-18 06:43] LABS: Partial Thromboplastin Time 38.2 Seconds (22.3-36.8)
[2023-11-18 06:44] LABS: Alanine Aminotransferase 13 U/L (6-35); Alkaline Phosphatase 93 U/L (38-126); Anion Gap 14 mmol/L (4-12); Aspartate Amino Transferase 39 U/L (14-36); Bilirubin,Total 0.5 mg/dL (0.2-1.3); Blood Urea Nitrogen 54 mg/dL (7-17); Calcium 8.6 mg/dL (8.4-10.2); Carbon Dioxide 20 mmol/L (22-30); Chloride 102 mmol/L (98-107); Estimated CRCL calculation 13 ml/min; Estimated Glomerular Filt Rate 13; Glucose 114 mg/dL (65-110); Magnesium 2.3 mg/dL (1.6-2.3); Sodium 136 mmol/L (137-145)
[2023-11-18 06:46] LABS: Anisocytosis 1+; Hypochromasia 1+; Microcytosis 1+ (NORMAL); Platelet Estimate Adequate (Adequate); Schistocytes None Seen
[2023-11-18 06:47] LABS: Potassium 5.2 mmol/L (3.4-5.0)
[2023-11-18 06:52] LABS: Troponin I < 0.012 ng/mL (0.000-0.034)
[2023-11-18 07:00] LABS: Procalcitonin 0.2 ng/mL
--- NOTE | 2023-11-18 07:19 | PC.NURSE ---
Pts suprapubic catheter changed by EDP Dr. Chamberlain upon arrival to ED.
[2023-11-18] MEDS: SODIUM CHLORIDE 0.9% IV 1,000 ML 999 ML IV CONT (07:23)
[2023-11-18 08:18] LABS: Add Urine Microscopic? YES; Appearance Urine Turbid (Clear); Bacteria Urine 1+ /hpf; Bilirubin Urine Negative (Negative); Blood Urine 3+ (Negative); Color Urine Yellow (Yellow); Glucose Urine UA Negative (Negative); Ketones Urine Negative (Negative); Leukocyte Esterase Ur 3+ LEU/UL (Negative); Need Manual Microscopic Reviewed; Nitrate Urine Positive (Negative); Protein Urine 3+ mg/dL (Negative); RBC Urine >100 /hpf (0-2); Specific Grav Ur 1.017 (1.001-1.035); Squamous Epithelial Cell Urine Occasional /hpf (Few); WBC Urine >100 /hpf (0-3); pH Urine 5.5 (5.0-9.0)
[2023-11-18] MEDS: MEROPENEM 1 GM/NS 100 ML 1 GM/100 ML BAG IVPB (09:26)
--- NOTE | 2023-11-18 10:49 | PC.NURSE ---
This patient, Dasia Hernandez, was admitted to [facility] Room 305-01. Patient/family oriented to hospital policies and general routines including ID bracelet, bed and alarms, visiting hours, pain management, procedures, bathroom and other care routines, personal items, smoking policy, room service/diet, and visiting hours. Information on how to activate the Rapid Response Team has been discussed. Patient/Family are encouraged to report perceived risks to care and to ask questions if they do not understand what they are told or what they should do.
[2023-11-18] MEDS: SODIUM CHLORIDE 0.9% IV 1,000 ML 125 ML IV CONT ×2 (12:47→22:03)
--- NOTE | 2023-11-18 13:33 | PM.IMHP ---
H&P: HPI History of Present Illness Date/Time: 11/18/23 13:33 Chief Complaint: AMS Narrative: 82 y/o F presents here with altered mental status with PMH of MDR UTI, anemia chronic disease/CARMINE, aortic stenosis, brain aneurysm, CKD stage 4, COPD, CHF, depression/anxiety, HTN, hypothyroidism, and ANNE. The patient presents here from home via EMS for further evaluation of altered mental status. Patient at baseline is A&O x4. Per family at EMS arrival, the patient woke up this morning A&O x1. Patient has previously been altered and was found to have a severe UTI. Patient has suprapubic catheter in place due to urinary retention and difficulty exchanging/placing catheter due to body habitus. Urine output noted to be brown. Patient currently unable to contribute to HPI, family contacted for collateral information. Arnulfo (patient's POA) contributed to HPI and additional information obtained through chart review. He reports that typically when she gets a UTI she will talk to her grandma and grandpa while sleeping who have long passed. They noticed this over the last 1-2 days. They also report noting diarrhea, no recent abx, not typical symptom for her. They also report that when she becomes ill she has significantly reduced PO intake. Initial VS at presentation: 98.2? F, HR 101, RR 15, 160/132, and 99% on RA. ED workup showed: No leukocytosis, hemoglobin 7.9 (previously 7.7 on 07/19/2023, at baseline), INR 1.3, sodium 136, potassium 5.2, creatinine 3.3 and GFR 13 (previously 2.6 and GFR 18 on 07/19/2023), glucose 114, initial troponin negative, and UA consistent with UTI. CXR showed no acute cardiopulmonary disease. Head CT showed no acute intracranial process, right fronto temporal craniotomy overlying large region of chronic encephalomalacia, and small lacunar infarcts with right basal ganglia. CT of the abdomen/pelvis showed cholelithiasis, bilateral nonobstructing renal stones with right intra ureteral stent and suprapubic Colindres catheter in expected position, no hydronephrosis, and persistent large amount of stool at the rectosigmoid colon which could be seen with constipation and fecal impaction. Review of Systems Review of Systems: ROS unobtainable: Yes unobtainable due to mental status (A/Ox0) COUNT INCLUDES THE [facility] Past Medical History Medical History Anemia, chronic disease Aortic stenosis Reportedly she has severe aortic stenosis and is followed by a district court reporter in [place]. Apparently she has been deemed not a surgical candidate at this time due to her other medical conditions. Brain aneurysm Chronic anticoagulation Chronic kidney disease, stage 4 (severe) Chronic obstructive pulmonary disease Colonization with multidrug-resistant bacteria Urine cultures over the years have grown ESBL E coli, multidrug resistant Proteus mirabilis, and fluoroquinolone resistant Pseudomonas aeruginosa. 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 History of hysterectomy Family History Family History Father Acute myocardial infarction Social History Social History Social History: Healthcare power of event staff: Arnulfo Acosta ([phone]). Code status: Modified code, no CPR. Smoking packs per day: 1 Smoking cigarettes per day: 20.0 Years smoked: 20 Smoking pack-years: 20.00 Smoking status: Former smoker Second hand tobacco smoke exposure: No Alcohol intake: never Substance use: never Substance use type: does not use Do You Feel Safe in your Home?: Yes
--- NOTE | 2023-11-18 17:36 | PC.NURSE ---
RN wasn't able to collect stool due to having to do the enema. Pt tolerated it fairly.
--- NOTE | 2023-11-18 17:40 | PC.NURSE ---
Pt pulled IV out and RN assessed the site and there was no bruising present. Pt is very confused and altered.
[2023-11-18] MEDS: APIXABAN 2.5 MG TABLET PO (20:29)
[2023-11-18] MEDS: MEROPENEM 500 MG/NS 100 ML 500 MG/100 ML BAG 200 MG IVPB (20:30)
[2023-11-18] MEDS: TOLNAFTATE 1% POWDER 45 GM BTL 1 APPLIC TOPICAL (20:30)
[2023-11-18] MEDS: ACETAMINOPHEN 325 MG TABLET 650 MG PO (22:06)
[2023-11-19 06:00] VITALS: BP 106/68; PULSE 80; RESP 16; TEMP 36.2; O2SAT 99
[2023-11-19 08:35] LABS: Basophils Percent Auto 0.3 % (0.2-1.2); Eosinophils Absolute Auto 0.3 K/mm3 (0-0.3); Eosinophils Percent Auto 5.2 % (0-4.4); Hematocrit 22.8 % (37.0-47.0); Immature Granulocyte Absolute 0.02 K/mm3 (0.00-0.031); Immature Granulocyte Percent A 0.3 % (0-0.5); Lymphocytes Absolute Auto 0.83 K/mm3 (0.9-3.2); Lymphocytes Percent Auto 13.9 % (18.3-44.2); Mean Corpuscular HGB Conc 29.4 g/dl (32-36); Mean Corpuscular Hemoglobin 23.2 pg (26-34); Mean Corpuscular Volume 78.9 fl (80-100); Mean Platelet Volume 8.8 fl (7.4-10.4); Monocytes Absolute Auto 0.5 K/mm3 (0.1-0.6); Monocytes Percent Auto 8.4 % (2.6-8.5); Neutrophils Absolute Auto 4.3 K/mm3 (1.3-6.7); Neutrophils Percent Auto 71.9 % (45.5-73.1); Platelet Count Result 270 k/mm3 (150-375); Red Blood Count 2.89 M/mm3 (4.2-5.4)
[2023-11-19 08:38] LABS: Hemoglobin 6.7 g/dL (12.0-15.0)
[2023-11-19] MEDS: FOLIC ACID 1 MG TABLET PO (08:50)
[2023-11-19] MEDS: DULoxetine HCL 60 MG CAPSULE.DR PO (08:50)
[2023-11-19] MEDS: FERROUS SULFATE 325 MG TABLET DR PO (08:50)
[2023-11-19] MEDS: MULTIVITAMINS THERAPEUTIC TAB (*BKC) 1 TABLET PO (08:50)
[2023-11-19] MEDS: MAGNESIUM OXIDE 400 MG TABLET PO (08:50)
[2023-11-19] MEDS: ASCORBIC ACID 500 MG TABLET PO (08:50)
[2023-11-19] MEDS: PANTOPRAZOLE 40 MG TABLET PO (08:50)
[2023-11-19] MEDS: APIXABAN 2.5 MG TABLET PO ×2 (08:50→20:59)
[2023-11-19 08:51] LABS: Alanine Aminotransferase 11 U/L (6-35); Albumin Level 3.3 g/dL (3.5-5.1); Alkaline Phosphatase 85 U/L (38-126); Anion Gap 10 mmol/L (4-12); Aspartate Amino Transferase 22 U/L (14-36); Bilirubin,Total 0.2 mg/dL (0.2-1.3); Blood Urea Nitrogen 41 mg/dL (7-17); Calcium 8.2 mg/dL (8.4-10.2); Carbon Dioxide 20 mmol/L (22-30); Chloride 104 mmol/L (98-107); Estimated CRCL calculation 14 ml/min; Estimated Glomerular Filt Rate 14; Glucose 87 mg/dL (65-110); Potassium 4.1 mmol/L (3.4-5.0); Sodium 134 mmol/L (137-145)
[2023-11-19] MEDS: MEROPENEM 500 MG/NS 100 ML 500 MG/100 ML BAG 200 MG IVPB ×2 (08:54→20:59)
[2023-11-19] MEDS: TOLNAFTATE 1% POWDER 45 GM BTL 1 APPLIC TOPICAL ×2 (09:00→21:00)
[2023-11-19] MEDS: LACTULOSE 20 GM/30 ML UDC PO (09:00)
[2023-11-19 09:06] LABS: Anisocytosis 1+; Hypochromasia 2+; Microcytosis 1+ (NORMAL); Platelet Estimate Adequate (Adequate)
[2023-11-19 09:29] LABS: Basophils Percent Auto 0.4 % (0.2-1.2); Eosinophils Absolute Auto 0.3 K/mm3 (0-0.3); Hematocrit 24.2 % (37.0-47.0); Hemoglobin 7.1 g/dL (12.0-15.0); Immature Granulocyte Absolute 0.02 K/mm3 (0.00-0.031); Immature Granulocyte Percent A 0.3 % (0-0.5); Lymphocytes Absolute Auto 1.11 K/mm3 (0.9-3.2); Lymphocytes Percent Auto 16.3 % (18.3-44.2); Mean Corpuscular HGB Conc 29.3 g/dl (32-36); Mean Corpuscular Hemoglobin 23.1 pg (26-34); Mean Corpuscular Volume 78.6 fl (80-100); Mean Platelet Volume 8.8 fl (7.4-10.4); Monocytes Absolute Auto 0.6 K/mm3 (0.1-0.6); Monocytes Percent Auto 9.2 % (2.6-8.5); Neutrophils Absolute Auto 4.7 K/mm3 (1.3-6.7); Neutrophils Percent Auto 68.8 % (45.5-73.1); Platelet Count Result 269 k/mm3 (150-375); Red Blood Count 3.08 M/mm3 (4.2-5.4); White Blood Count 6.8 K/mm3 (4.5-10.0)
[2023-11-19 09:49] LABS: Schistocytes None Seen
[2023-11-19 09:51] LABS: Anisocytosis 1+; Hypochromasia 2+; Microcytosis 1+ (NORMAL); Platelet Estimate Adequate (Adequate); Schistocytes None Seen
[2023-11-19 11:16] VITALS: BMI 34.4
[2023-11-19 14:00] VITALS: BP 97/46; PULSE 103; RESP 19; TEMP 36.4; O2SAT 94
--- NOTE | 2023-11-19 14:33 | PM.IMPN ---
Progress Note: A&P Assessment and Plan (1) AMS (altered mental status): Qualifiers: Altered mental status type: disorientation Qualified Code(s): R41.0 - Disorientation, unspecified Code(s): R41.82 - Altered mental status, unspecified Status: Acute Assessment and Plan: - head CT: 1. No acute intracranial process. 2. Right frontotemporal craniotomy overlying large region of chronic encephalomalacia in the anterior right frontal lobe and small region in the anterior right temporal lobe which could represent sequela prior infarct or trauma. 3. Small lacunar infarcts at the right basal ganglia. - baseline A&O x4, currently A/Ox0. Hold home sedating medications. - neuro checks Q shift - suspect metabolic encephalopathy secondary to UTI (2) Acute UTI: Code(s): N39.0 - Urinary tract infection, site not specified Status: Acute Assessment and Plan: - UA: Turbid, 3+ protein, 3+ blood, positive nitrates, 3+ leuks, greater than 100 RBC and WBC, occasional epithelial cells, 1+ bacteria - UC pending, follow - previous micro reviewed, E coli multidrug resistant but susceptible to imipenem, meropenem, Macrobid only on 07/16/2023 - started on meropenem on 11/17 (3) Acute on chronic renal failure: Qualifiers: Acute renal failure type: unspecified Chronic kidney disease stage: stage 4 (severe) Qualified Code(s): N17.9 - Acute kidney failure, unspecified; N18.4 - Chronic kidney disease, stage 4 (severe) Code(s): N17.9 - Acute kidney failure, unspecified; N18.9 - Chronic kidney disease, unspecified Status: Acute Assessment and Plan: - creatinine 3.10, BUN 41, GFR 14 - hx of CKD stage 4 - suspect injury secondary to UTI and reduced p.o. intake, start gentle IV fluids (hx of HF) and ABX - trend renal function - trend electrolytes, correct as needed (4) Anemia: Qualifiers: Anemia type: unspecified type Qualified Code(s): D64.9 - Anemia, unspecified Code(s): D64.9 - Anemia, unspecified Status: Acute Assessment and Plan: - chronic anemia secondary to CKD and iron deficiency anemia - hemoglobin 7.1 - baseline 7.5-7.9 over the past year - Recheck CBC at 18:00 -Check stool for occult blood. (5) Overlap syndrome of obstructive sleep apnea and chronic obstructive pulmonary disease: Code(s): G47.33 - Obstructive sleep apnea (adult) (pediatric); J44.9 - Chronic obstructive pulmonary disease, unspecified Status: Acute Assessment and Plan: - continue home CPAP Plan Patient's POA reported she has had diarrhea over the past 1-2 days, add C diff and stool culture. Fecal impaction noted on CT, enema ordered. Diet: Heart healthy GI Prophylaxis: Not currently indicated DVT Prophylaxis: Continue Eliquis Lines: Peripheral Code Status: Full code Subjective Date/time seen: 11/19/23 14:33 Interval history: 82 y/o F presents here with altered mental status with PMH of MDR UTI, anemia chronic disease/CARMINE, aortic stenosis, brain aneurysm, CKD stage 4, COPD, CHF, depression/anxiety, HTN, hypothyroidism, and ANNE. The patient presents here from home via EMS for further evaluation of altered mental status. Patient at baseline is A&O x4. Per family at EMS arrival, the patient woke up this morning A&O x1. Patient has previously been altered and was found to have a severe UTI. Patient has suprapubic catheter in place due to urinary retention and difficulty exchanging/placing catheter due to body habitus. Urine output noted to be brown. Patient currently unable to contribute to HPI, family contacted for collateral information. Arnulfo (patient's POA) contributed to HPI and additional information obtained through chart review. He reports that typically when she gets a UTI she will talk to her grandma and grandpa while sleeping who have long passed. They noticed this over the last 1-2 days. They also report noting
[2023-11-19 19:15] LABS: Basophils Percent Auto 0.4 % (0.2-1.2); Eosinophils Absolute Auto 0.4 K/mm3 (0-0.3); Eosinophils Percent Auto 5.7 % (0-4.4); Hematocrit 22.6 % (37.0-47.0); Immature Granulocyte Absolute 0.02 K/mm3 (0.00-0.031); Immature Granulocyte Percent A 0.3 % (0-0.5); Lymphocytes Percent Auto 12.8 % (18.3-44.2); Mean Corpuscular HGB Conc 29.2 g/dl (32-36); Mean Corpuscular Volume 78.7 fl (80-100); Mean Platelet Volume 8.5 fl (7.4-10.4); Monocytes Absolute Auto 0.6 K/mm3 (0.1-0.6); Monocytes Percent Auto 8.8 % (2.6-8.5); Neutrophils Absolute Auto 5.1 K/mm3 (1.3-6.7); Platelet Count Result 251 k/mm3 (150-375); Red Blood Count 2.87 M/mm3 (4.2-5.4); Red Cell Distribution Width 18.2 % (11.5-14.5); White Blood Count 7.1 K/mm3 (4.5-10.0)
[2023-11-19 19:34] LABS: Hemoglobin 6.6 g/dL (12.0-15.0)
[2023-11-19 19:35] LABS: Anisocytosis 1+; Hypochromasia 2+; Microcytosis 1+ (NORMAL); Platelet Estimate Adequate (Adequate)
[2023-11-19 19:36] LABS: Schistocytes None Seen
[2023-11-19 20:50] VITALS: BP 104/48; PULSE 88; RESP 20; TEMP 36.6; O2SAT 96
[2023-11-19] MEDS: SODIUM CHLORIDE 0.9% IV 1,000 ML 125 ML IV CONT (20:58)
[2023-11-19 23:18] LABS: Hematocrit 22.4 % (37.0-47.0)
[2023-11-19 23:24] LABS: Hemoglobin 6.5 g/dL (12.0-15.0)
[2023-11-20] VITALS (8 sets, daily range): BP systolic 100–126; BP diastolic 41–69; PULSE 83–99; RESP 14–20; TEMP 35.9–37.2; O2SAT 96–100
[2023-11-20] MEDS: SODIUM CHLORIDE 0.9% IV 250 ML 30 ML IV CONT (02:20)
[2023-11-20 03:15] LABS: IFOB Positive Control Positive; Immunochemical Fecal Occult Bl Positive (N)
[2023-11-20 03:46] LABS: Toxigenic C. Diff NEGATIVE (NEGATIVE)
[2023-11-20 06:52] LABS: Basophils Percent Auto 0.3 % (0.2-1.2); Eosinophils Absolute Auto 0.4 K/mm3 (0-0.3); Eosinophils Percent Auto 4.6 % (0-4.4); Hematocrit 25.9 % (37.0-47.0); Hemoglobin 7.5 g/dL (12.0-15.0); Immature Granulocyte Absolute 0.04 K/mm3 (0.00-0.031); Immature Granulocyte Percent A 0.4 % (0-0.5); Lymphocytes Absolute Auto 0.87 K/mm3 (0.9-3.2); Lymphocytes Percent Auto 9.8 % (18.3-44.2); Mean Corpuscular Hemoglobin 23.3 pg (26-34); Mean Corpuscular Volume 80.4 fl (80-100); Mean Platelet Volume 9.1 fl (7.4-10.4); Monocytes Absolute Auto 0.7 K/mm3 (0.1-0.6); Monocytes Percent Auto 7.8 % (2.6-8.5); Neutrophils Absolute Auto 6.9 K/mm3 (1.3-6.7); Neutrophils Percent Auto 77.1 % (45.5-73.1); Platelet Count Result 267 k/mm3 (150-375); Red Blood Count 3.22 M/mm3 (4.2-5.4); Red Cell Distribution Width 17.6 % (11.5-14.5); White Blood Count 8.9 K/mm3 (4.5-10.0)
[2023-11-20 07:06] LABS: Alanine Aminotransferase 10 U/L (6-35); Albumin Level 3.1 g/dL (3.5-5.1); Alkaline Phosphatase 79 U/L (38-126); Anion Gap 10 mmol/L (4-12); Aspartate Amino Transferase 31 U/L (14-36); Bilirubin,Total 0.4 mg/dL (0.2-1.3); Blood Urea Nitrogen 33 mg/dL (7-17); Calcium 8.4 mg/dL (8.4-10.2); Carbon Dioxide 18 mmol/L (22-30); Chloride 109 mmol/L (98-107); Estimated CRCL calculation 16 ml/min; Estimated Glomerular Filt Rate 17; Glucose 91 mg/dL (65-110); Sodium 137 mmol/L (137-145)
[2023-11-20 07:38] LABS: Hypochromasia 1+; Platelet Estimate Adequate (Adequate)
[2023-11-20 07:39] LABS: Anisocytosis 2+; Schistocytes None Seen
[2023-11-20] MEDS: LACTULOSE 20 GM/30 ML UDC PO (08:19)
[2023-11-20] MEDS: MEROPENEM 500 MG/NS 100 ML 500 MG/100 ML BAG 200 MG IVPB ×2 (08:19→20:54)
[2023-11-20] MEDS: DULoxetine HCL 60 MG CAPSULE.DR PO (08:19)
[2023-11-20] MEDS: FERROUS SULFATE 325 MG TABLET DR PO (08:19)
[2023-11-20] MEDS: APIXABAN 2.5 MG TABLET PO ×2 (08:19→20:52)
[2023-11-20] MEDS: ASCORBIC ACID 500 MG TABLET PO (08:19)
[2023-11-20] MEDS: MAGNESIUM OXIDE 400 MG TABLET PO (08:19)
[2023-11-20] MEDS: PANTOPRAZOLE 40 MG TABLET PO (08:20)
[2023-11-20] MEDS: FOLIC ACID 1 MG TABLET PO (08:20)
[2023-11-20] MEDS: MULTIVITAMINS THERAPEUTIC TAB (*BKC) 1 TABLET PO (08:20)
[2023-11-20] MEDS: TOLNAFTATE 1% POWDER 45 GM BTL 1 APPLIC TOPICAL ×2 (08:21→20:58)
--- NOTE | 2023-11-20 12:03 | PM.IMPN ---
Progress Note: A&P Assessment and Plan (1) AMS (altered mental status): Qualifiers: Altered mental status type: disorientation Qualified Code(s): R41.0 - Disorientation, unspecified Code(s): R41.82 - Altered mental status, unspecified Status: Acute Assessment and Plan: - head CT: 1. No acute intracranial process. 2. Right frontotemporal craniotomy overlying large region of chronic encephalomalacia in the anterior right frontal lobe and small region in the anterior right temporal lobe which could represent sequela prior infarct or trauma. 3. Small lacunar infarcts at the right basal ganglia. - baseline A&O x2, Hold home sedating medications. - neuro checks Q shift -Urine no growth -Blood cultures and stool culture pending. (2) Acute UTI: Code(s): N39.0 - Urinary tract infection, site not specified Status: Acute Assessment and Plan: - UA: Turbid, 3+ protein, 3+ blood, positive nitrates, 3+ leuks, greater than 100 RBC and WBC, occasional epithelial cells, 1+ bacteria - UC no growth - previous micro reviewed, E coli multidrug resistant but susceptible to imipenem, meropenem, Macrobid only on 07/16/2023 - started on meropenem on 11/17 (3) Acute on chronic renal failure: Qualifiers: Acute renal failure type: unspecified Chronic kidney disease stage: stage 4 (severe) Qualified Code(s): N17.9 - Acute kidney failure, unspecified; N18.4 - Chronic kidney disease, stage 4 (severe) Code(s): N17.9 - Acute kidney failure, unspecified; N18.9 - Chronic kidney disease, unspecified Status: Acute Assessment and Plan: - creatinine 2.70 (improving), BUN 33, GFR 17 - hx of CKD stage 4 - trend renal function - trend electrolytes, correct as needed (4) Anemia: Qualifiers: Anemia type: unspecified type Qualified Code(s): D64.9 - Anemia, unspecified Code(s): D64.9 - Anemia, unspecified Status: Acute Assessment and Plan: - chronic anemia secondary to CKD and iron deficiency anemia - hemoglobin 7.5 - baseline 7.5-7.9 over the past year - Recheck CBC at 15:00, results: RBC 3.15, H&H 7.5/25.0 -Stool positive for occult blood. -GI consult. Patient refusing a colonoscopy. -Monitor labs and stool. (5) Overlap syndrome of obstructive sleep apnea and chronic obstructive pulmonary disease: Code(s): G47.33 - Obstructive sleep apnea (adult) (pediatric); J44.9 - Chronic obstructive pulmonary disease, unspecified Status: Acute Assessment and Plan: - continue home CPAP Plan Patient's POA reported she has had diarrhea over the past 1-2 days, add C diff and stool culture. Fecal impaction noted on CT, enema ordered. Diet: Heart healthy GI Prophylaxis: Not currently indicated DVT Prophylaxis: Continue Eliquis Lines: Peripheral Code Status: Full code Subjective Date/time seen: 11/20/23 12:03 Interval history: 82 y/o F presents here with altered mental status with PMH of MDR UTI, anemia chronic disease/CARMINE, aortic stenosis, brain aneurysm, CKD stage 4, COPD, CHF, depression/anxiety, HTN, hypothyroidism, and ANNE. The patient presents here from home via EMS for further evaluation of altered mental status. Patient at baseline is A&O x4. Per family at EMS arrival, the patient woke up this morning A&O x1. Patient has previously been altered and was found to have a severe UTI. Patient has suprapubic catheter in place due to urinary retention and difficulty exchanging/placing catheter due to body habitus. Urine output noted to be brown. Patient currently unable to contribute to HPI, family contacted for collateral information. Arnulfo (patient's POA) contributed to HPI and additional information obtained through chart review. He reports that typically when she gets a UTI she will talk to her grandma and grandpa while sleeping who have long passed. They noticed this over the last 1-2 days. They also repo
[2023-11-20] MEDS: SODIUM CHLORIDE 0.9% IV 1,000 ML 75 ML IV CONT (14:12)
--- NOTE | 2023-11-20 15:31 | WPDGICN ---
Assessment and Plan Assessment and plan (1) Occult blood in stools: Code(s): R19.5 - Other fecal abnormalities Status: Acute Assessment and Plan: patient again is refusing to get colonoscopy (last hospitalization she did not want it) if she changes her mind then let us know (2) Acute on chronic anemia: Code(s): D64.9 - Anemia, unspecified Status: Acute Assessment and Plan: probably multifactorial with advanced renal disease she does not want to get colonoscopy (3) Acute on chronic renal failure: Qualifiers: Acute renal failure type: unspecified Chronic kidney disease stage: stage 4 (severe) Qualified Code(s): N17.9 - Acute kidney failure, unspecified; N18.4 - Chronic kidney disease, stage 4 (severe) Code(s): N17.9 - Acute kidney failure, unspecified; N18.9 - Chronic kidney disease, unspecified Status: Acute Assessment and Plan: by primary team (4) Acute UTI: Code(s): N39.0 - Urinary tract infection, site not specified Status: Acute Assessment and Plan: on treatment and better (5) Chronic anticoagulation: Code(s): Z79.01 - buttermaker (current) use of anticoagulants Status: Acute (6) AMS (altered mental status): Qualifiers: Altered mental status type: disorientation Qualified Code(s): R41.0 - Disorientation, unspecified Code(s): R41.82 - Altered mental status, unspecified Status: Acute GI Consult Note Consult date/time: 11/20/23 15:31 Reason for consult: anemia, + FOBT HPI: Dasia Hernandez is a 82 year old female with PMH of MDR UTI, anemia chronic disease/CARMINE, aortic stenosis, brain aneurysm, CKD stage 4, COPD, CHF, depression/anxiety, HTN, hypothyroidism, and ANNE. She was admitted this time with confusion and found to have severe UTI. Patient has suprapubic catheter in place due to urinary retention, she is more alert now but still not best historian. Started on antibiotics, also chronic anemia with hgb 7-8, no overt gib but + FOBT again (previous hospitalization same finding but she refused colonoscopy evaluation). Blood work showed no leukocytosis, hemoglobin 6.6 with baseline mid 7-8, INR 1.3, sodium 136, potassium 5.2, creatinine 3.3, UA consistent with UTI. CXR showed no acute cardiopulmonary disease. Head CT showed no acute intracranial process, right fronto temporal craniotomy overlying large region of chronic encephalomalacia, and small lacunar infarcts with right basal ganglia. CT of the abdomen/pelvis showed cholelithiasis, bilateral nonobstructing renal stones with right intra ureteral stent and suprapubic Colindres catheter in expected position, no hydronephrosis, and persistent large amount of stool at the rectosigmoid colon which could be seen with constipation. Review of Systems Constitutional: Constitutional: Denies night sweats Eyes: Eyes: Denies blurry vision ENT: Reports Normal hearing present Cardiovascular: Cardiovascular: Denies chest pain Respiratory: Respiratory: Denies cough Gastrointestinal: Gastrointestinal: Denies nausea Genitourinary: Comments: suprapubic catheter Musculoskeletal: Musculoskeletal: Denies neck pain Integumentary/Breasts: Skin/Breast: Denies rash Neurologic: Denies Abnormal speech present Psychiatric: Psychiatric: Reports confusion PMFSH Past Medical History Medical History Anemia, chronic disease Aortic stenosis Reportedly she has severe aortic stenosis and is followed by a water supervisor in [place]. Apparently she has been deemed not a surgical candidate at this time due to her other medical conditions. Brain aneurysm Chronic anticoagulation Chronic kidney disease, stage 4 (severe) Chronic obstructive pulmonary disease Colonization with multidrug-resistant bacteria Urine cultures over the years have grown ESBL E coli, multidrug resistant Proteus mirabilis, and
[2023-11-20 15:39] LABS: Basophils Percent Auto 0.3 % (0.2-1.2); Eosinophils Absolute Auto 0.4 K/mm3 (0-0.3); Eosinophils Percent Auto 6.5 % (0-4.4); Hemoglobin 7.5 g/dL (12.0-15.0); Immature Granulocyte Absolute 0.03 K/mm3 (0.00-0.031); Immature Granulocyte Percent A 0.5 % (0-0.5); Lymphocytes Absolute Auto 0.88 K/mm3 (0.9-3.2); Lymphocytes Percent Auto 13.9 % (18.3-44.2); Mean Corpuscular Hemoglobin 23.8 pg (26-34); Mean Corpuscular Volume 79.4 fl (80-100); Mean Platelet Volume 8.4 fl (7.4-10.4); Monocytes Absolute Auto 0.6 K/mm3 (0.1-0.6); Monocytes Percent Auto 8.8 % (2.6-8.5); Neutrophils Absolute Auto 4.4 K/mm3 (1.3-6.7); Platelet Count Result 221 k/mm3 (150-375); Red Blood Count 3.15 M/mm3 (4.2-5.4); Red Cell Distribution Width 17.7 % (11.5-14.5); White Blood Count 6.3 K/mm3 (4.5-10.0)
[2023-11-21] MEDS: SODIUM CHLORIDE 0.9% IV 1,000 ML 75 ML IV CONT ×2 (03:30→17:10)
[2023-11-21 06:00] VITALS: BP 105/60; PULSE 100; RESP 18; TEMP 36.6; O2SAT 98
[2023-11-21 06:04] LABS: Basophils Percent Auto 0.3 % (0.2-1.2); Eosinophils Absolute Auto 0.6 K/mm3 (0-0.3); Eosinophils Percent Auto 8.5 % (0-4.4); Hematocrit 24.8 % (37.0-47.0); Hemoglobin 7.4 g/dL (12.0-15.0); Immature Granulocyte Absolute 0.02 K/mm3 (0.00-0.031); Immature Granulocyte Percent A 0.3 % (0-0.5); Lymphocytes Absolute Auto 0.99 K/mm3 (0.9-3.2); Lymphocytes Percent Auto 14.1 % (18.3-44.2); Mean Corpuscular HGB Conc 29.8 g/dl (32-36); Mean Corpuscular Hemoglobin 23.6 pg (26-34); Mean Corpuscular Volume 79.2 fl (80-100); Mean Platelet Volume 8.7 fl (7.4-10.4); Monocytes Absolute Auto 0.5 K/mm3 (0.1-0.6); Neutrophils Absolute Auto 4.9 K/mm3 (1.3-6.7); Neutrophils Percent Auto 69.8 % (45.5-73.1); Platelet Count Result 242 k/mm3 (150-375); Red Blood Count 3.13 M/mm3 (4.2-5.4)
[2023-11-21 06:15] LABS: Alanine Aminotransferase 11 U/L (6-35); Albumin Level 2.8 g/dL (3.5-5.1); Alkaline Phosphatase 71 U/L (38-126); Anion Gap 8 mmol/L (4-12); Aspartate Amino Transferase 32 U/L (14-36); Bilirubin,Total 0.2 mg/dL (0.2-1.3); Blood Urea Nitrogen 27 mg/dL (7-17); Calcium 8.1 mg/dL (8.4-10.2); Carbon Dioxide 18 mmol/L (22-30); Chloride 108 mmol/L (98-107); Estimated CRCL calculation 20 ml/min; Estimated Glomerular Filt Rate 21; Glucose 89 mg/dL (65-110); Potassium 4.1 mmol/L (3.4-5.0); Sodium 134 mmol/L (137-145)
[2023-11-21 06:22] LABS: Anisocytosis 1+; Hypochromasia 2+; Platelet Estimate Adequate (Adequate); Schistocytes None Seen
[2023-11-21 08:00] VITALS: PULSE 100; RESP 18; O2SAT 98
[2023-11-21] MEDS: MEROPENEM 500 MG/NS 100 ML 500 MG/100 ML BAG 200 MG IVPB ×2 (08:49→20:27)
[2023-11-21] MEDS: PANTOPRAZOLE 40 MG TABLET PO (08:51)
[2023-11-21] MEDS: LACTULOSE 20 GM/30 ML UDC PO (08:51)
[2023-11-21] MEDS: MAGNESIUM OXIDE 400 MG TABLET PO (08:51)
[2023-11-21] MEDS: MULTIVITAMINS THERAPEUTIC TAB (*BKC) 1 TABLET PO (08:51)
[2023-11-21] MEDS: FOLIC ACID 1 MG TABLET PO (08:51)
[2023-11-21] MEDS: DULoxetine HCL 60 MG CAPSULE.DR PO (08:51)
[2023-11-21] MEDS: ASCORBIC ACID 500 MG TABLET PO (08:51)
[2023-11-21] MEDS: APIXABAN 2.5 MG TABLET PO ×2 (08:51→20:27)
[2023-11-21] MEDS: FERROUS SULFATE 325 MG TABLET DR PO (08:51)
[2023-11-21] MEDS: TOLNAFTATE 1% POWDER 45 GM BTL 1 APPLIC TOPICAL ×2 (08:52→20:31)
[2023-11-21 09:05] VITALS: O2SAT 98
--- NOTE | 2023-11-21 11:08 | PM.IMPN ---
Progress Note: A&P Assessment and Plan (1) AMS (altered mental status): Qualifiers: Altered mental status type: disorientation Qualified Code(s): R41.0 - Disorientation, unspecified Code(s): R41.82 - Altered mental status, unspecified Status: Acute Assessment and Plan: - head CT: 1. No acute intracranial process. 2. Right frontotemporal craniotomy overlying large region of chronic encephalomalacia in the anterior right frontal lobe and small region in the anterior right temporal lobe which could represent sequela prior infarct or trauma. 3. Small lacunar infarcts at the right basal ganglia. - baseline A&O x2, Hold home sedating medications. - neuro checks Q shift -Urine no growth -Blood cultures and stool culture pending. -PT reports that patient is at her baseline. (2) Acute UTI: Code(s): N39.0 - Urinary tract infection, site not specified Status: Acute Assessment and Plan: - UA: Turbid, 3+ protein, 3+ blood, positive nitrates, 3+ leuks, greater than 100 RBC and WBC, occasional epithelial cells, 1+ bacteria - UC no growth - previous micro reviewed, E coli multidrug resistant but susceptible to imipenem, meropenem, Macrobid only on 07/16/2023 - started on meropenem on 11/17, scheduled for 5 days. (3) Acute on chronic renal failure: Qualifiers: Acute renal failure type: unspecified Chronic kidney disease stage: stage 4 (severe) Qualified Code(s): N17.9 - Acute kidney failure, unspecified; N18.4 - Chronic kidney disease, stage 4 (severe) Code(s): N17.9 - Acute kidney failure, unspecified; N18.9 - Chronic kidney disease, unspecified Status: Acute Assessment and Plan: - Improving - creatinine 2.20, BUN 27, GFR 21 - hx of CKD stage 4 - trend renal function - trend electrolytes, correct as needed (4) Anemia: Qualifiers: Anemia type: unspecified type Qualified Code(s): D64.9 - Anemia, unspecified Code(s): D64.9 - Anemia, unspecified Status: Acute Assessment and Plan: - chronic anemia secondary to CKD and iron deficiency anemia - hemoglobin 7.4 - baseline 7.5-7.9 over the past year - CBC results: RBC 3.13, H&H 7.4/24.8 -Stool positive for occult blood. -GI consulted. Patient refusing a colonoscopy. -Monitor labs and stool. (5) Overlap syndrome of obstructive sleep apnea and chronic obstructive pulmonary disease: Code(s): G47.33 - Obstructive sleep apnea (adult) (pediatric); J44.9 - Chronic obstructive pulmonary disease, unspecified Status: Acute Assessment and Plan: - continue home CPAP Plan Diet: Heart healthy, Ensure compact GI Prophylaxis: Not currently indicated DVT Prophylaxis: Continue Eliquis Lines: Peripheral Code Status: Full code Subjective Date/time seen: 11/21/23 11:08 Interval history: Interval history: 82 y/o F presents here with altered mental status with PMH of MDR UTI, anemia chronic disease/CARMINE, aortic stenosis, brain aneurysm, CKD stage 4, COPD, CHF, depression/anxiety, HTN, hypothyroidism, and ANNE. The patient presents here from home via EMS for further evaluation of altered mental status. Patient at baseline is A&O x4. Per family at EMS arrival, the patient woke up this morning A&O x1. Patient has previously been altered and was found to have a severe UTI. Patient has suprapubic catheter in place due to urinary retention and difficulty exchanging/placing catheter due to body habitus. Urine output noted to be brown. Patient currently unable to contribute to HPI, family contacted for collateral information. Arnulfo (patient's POA) contributed to HPI and additional information obtained through chart review. He reports that typically when she gets a UTI she will talk to her grandma and grandpa while sleeping who have long passed. They noticed this over the last 1-2 days. They also report noting diarrhea, no recent abx, not typical symptom for he
--- NOTE | 2023-11-21 13:06 | PCPTNOTE ---
Pt at baseline using timothy lift and wheelchair. Pt capable of feeding self, but otherwise dependent. Hospitalist aware and OK discharge of therapy orders.
--- NOTE | 2023-11-21 13:20 | PCOTNOTE ---
Spoke with daughter and pt. who report pt. is dependent at baseline in functional transfers (hoyers to wheelchair) and most ADLs ( pt. feeds self). Daughter confirms pt. is at baseline and will not require therapy services at this time. Hospitalist notified. Canceling order.
[2023-11-21 13:52] VITALS: BP 112/60; PULSE 95; RESP 18; TEMP 36.3; O2SAT 98
[2023-11-21 21:31] VITALS: BP 115/54; PULSE 96; RESP 16; TEMP 36.3; O2SAT 96
[2023-11-21] MEDS: ACETAMINOPHEN 325 MG TABLET 650 MG PO (22:01)
[2023-11-22 05:38] VITALS: BP 147/63; PULSE 102; RESP 17; TEMP 36.2; O2SAT 96
[2023-11-22 07:05] LABS: Alanine Aminotransferase 10 U/L (6-35); Albumin Level 2.8 g/dL (3.5-5.1); Alkaline Phosphatase 68 U/L (38-126); Anion Gap 6 mmol/L (4-12); Aspartate Amino Transferase 29 U/L (14-36); Bilirubin,Total 0.1 mg/dL (0.2-1.3); Blood Urea Nitrogen 27 mg/dL (7-17); Carbon Dioxide 21 mmol/L (22-30); Chloride 107 mmol/L (98-107); Estimated CRCL calculation 20 ml/min; Estimated Glomerular Filt Rate 21; Glucose 91 mg/dL (65-110); Sodium 134 mmol/L (137-145)
[2023-11-22 07:07] LABS: Basophils Percent Auto 0.4 % (0.2-1.2); Eosinophils Absolute Auto 0.5 K/mm3 (0-0.3); Eosinophils Percent Auto 6.9 % (0-4.4); Hematocrit 25.8 % (37.0-47.0); Hemoglobin 7.5 g/dL (12.0-15.0); Immature Granulocyte Absolute 0.04 K/mm3 (0.00-0.031); Immature Granulocyte Percent A 0.5 % (0-0.5); Lymphocytes Percent Auto 11.7 % (18.3-44.2); Mean Corpuscular HGB Conc 29.1 g/dl (32-36); Mean Corpuscular Hemoglobin 23.3 pg (26-34); Mean Corpuscular Volume 80.1 fl (80-100); Mean Platelet Volume 8.9 fl (7.4-10.4); Monocytes Absolute Auto 0.4 K/mm3 (0.1-0.6); Monocytes Percent Auto 5.7 % (2.6-8.5); Neutrophils Absolute Auto 5.8 K/mm3 (1.3-6.7); Neutrophils Percent Auto 74.8 % (45.5-73.1); Platelet Count Result 262 k/mm3 (150-375); Red Blood Count 3.22 M/mm3 (4.2-5.4); Red Cell Distribution Width 17.9 % (11.5-14.5); White Blood Count 7.7 K/mm3 (4.5-10.0)
[2023-11-22 08:00] LABS: Anisocytosis 1+; Hypochromasia 1+; Platelet Estimate Adequate (Adequate); Schistocytes None Seen
[2023-11-22] MEDS: MEROPENEM 500 MG/NS 100 ML 500 MG/100 ML BAG 200 MG IVPB ×2 (09:14→16:10)
[2023-11-22] MEDS: DULoxetine HCL 60 MG CAPSULE.DR PO (09:26)
[2023-11-22] MEDS: ASCORBIC ACID 500 MG TABLET PO (09:26)
[2023-11-22] MEDS: FOLIC ACID 1 MG TABLET PO (09:26)
[2023-11-22] MEDS: MULTIVITAMINS THERAPEUTIC TAB (*BKC) 1 TABLET PO (09:26)
[2023-11-22] MEDS: PANTOPRAZOLE 40 MG TABLET PO (09:26)
[2023-11-22] MEDS: FERROUS SULFATE 325 MG TABLET DR PO (09:26)
[2023-11-22] MEDS: MAGNESIUM OXIDE 400 MG TABLET PO (09:26)
[2023-11-22] MEDS: APIXABAN 2.5 MG TABLET PO (09:26)
[2023-11-22] MEDS: TOLNAFTATE 1% POWDER 45 GM BTL 1 APPLIC TOPICAL (09:27)
--- NOTE | 2023-11-22 13:17 | PM.DS ---
DS: Admitting Diagnosis Discharge Date 11/22/2023 Admitting Diagnosis Altered mental status DS: Discharge Diagnosis Discharge Diagnosis (1) AMS (altered mental status): Qualifiers: Altered mental status type: disorientation Qualified Code(s): R41.0 - Disorientation, unspecified Code(s): R41.82 - Altered mental status, unspecified Status: Acute (2) Acute on chronic renal failure: Qualifiers: Acute renal failure type: unspecified Chronic kidney disease stage: stage 4 (severe) Qualified Code(s): N17.9 - Acute kidney failure, unspecified; N18.4 - Chronic kidney disease, stage 4 (severe) Code(s): N17.9 - Acute kidney failure, unspecified; N18.9 - Chronic kidney disease, unspecified Status: Acute (3) Anemia: Qualifiers: Anemia type: unspecified type Qualified Code(s): D64.9 - Anemia, unspecified Code(s): D64.9 - Anemia, unspecified Status: Acute (4) Overlap syndrome of obstructive sleep apnea and chronic obstructive pulmonary disease: Code(s): G47.33 - Obstructive sleep apnea (adult) (pediatric); J44.9 - Chronic obstructive pulmonary disease, unspecified Status: Acute Plan AMS, Acute on chronic renal failure, anemia, ANNE. DS: Summary Hospital Course Hospital Course: The patient presents here from home via EMS for further evaluation of altered mental status. Patient at baseline is A&O x4. Per family at EMS arrival, the patient woke up this morning A&O x1. Patient has previously been altered and was found to have a severe UTI. Patient has suprapubic catheter in place due to urinary retention and difficulty exchanging/placing catheter due to body habitus. Urine output noted to be brown. Patient currently unable to contribute to HPI, family contacted for collateral information. Arnulfo (patient's POA) contributed to HPI and additional information obtained through chart review. He reports that typically when she gets a UTI she will talk to her grandma and grandpa while sleeping who have long passed. They noticed this over the last 1-2 days. They also report noting diarrhea, no recent abx, not typical symptom for her. They also report that when she becomes ill she has significantly reduced PO intake. ED workup showed: No leukocytosis, hemoglobin 7.9 (previously 7.7 on 07/19/2023, at baseline), INR 1.3, sodium 136, potassium 5.2, creatinine 3.3 and GFR 13 (previously 2.6 and GFR 18 on 07/19/2023), glucose 114, initial troponin negative, and UA consistent with UTI. CXR showed no acute cardiopulmonary disease. Head CT showed no acute intracranial process, right fronto temporal craniotomy overlying large region of chronic encephalomalacia, and small lacunar infarcts with right basal ganglia. CT of the abdomen/pelvis showed cholelithiasis, bilateral nonobstructing renal stones with right intra ureteral stent and suprapubic Colindres catheter in expected position, no hydronephrosis, and persistent large amount of stool at the rectosigmoid colon which could be seen with constipation and fecal impaction. Patient responded well with kidney function improvement (11/18/23: BUN 54, Creatinine 3.30, GFR 12; 11/22/23: BUN 27, Creatinine 2.20, GFR 21) with IV hydration and IV Meropenem. Patient did have a positive stool for occult blood and refused a Colonoscopy when GI was consulted. Patient received 1 unit of PRBC's with H&H stable at 7.5/25.8, baseline mid 7-8. Urine culture negative. Stool negative for E coli, c. diff, Salmonella/shigella, and campylobacter. Blood cultures pending. Status at Discharge Functional status at discharge: wheelchair bound Overall status at discharge: patient is progressing back to baseline Time Spent with Patient Time attestation: Total time spent providing and/or coordinating discharge services: Time spent: Greater than 30 minutes Exam Const: General: comfortable and no acute distress Other: , female, obese body habitus, mildly i
[2023-11-22 14:00] VITALS: BP 110/53; PULSE 95; RESP 14; TEMP 36.2; O2SAT 97
--- NOTE | 2023-11-27 10:23 | PC.NURSE ---
Blood cx are negative.
== END 2023-11-22 17:15 | disposition home or self-care (01) | DRG 689 ==
LOC: ANHED 10:12 → ANH3MEDSUR 10:30
PROVIDERS: Physician Assistant; Student in an Organized Health Care Education/Training Program; Admitting Provider General Practice; Emergency Provider Emergency Medicine; PCP Internal Medicine; Visit Provider Nurse Practitioner Family
DX: N39.0 Urinary tract infection, site not specified (principal); G93.41 Metabolic encephalopathy; N17.9 Acute kidney failure, unspecified; I13.0 Hypertensive heart and chronic kidney disease with heart failure and stage 1 through stage 4 chronic kidney disease, or unspecified chronic kidney disease; N18.4 Chronic kidney disease, stage 4 (severe); D63.1 Anemia in chronic kidney disease; D50.9 Iron deficiency anemia, unspecified; E03.9 Hypothyroidism, unspecified; F41.9 Anxiety disorder, unspecified; G47.33 Obstructive sleep apnea (adult) (pediatric); I50.9 Heart failure, unspecified; I35.0 Nonrheumatic aortic (valve) stenosis; J44.9 Chronic obstructive pulmonary disease, unspecified; K80.20 Calculus of gallbladder without cholecystitis without obstruction; K59.00 Constipation, unspecified; N20.0 Calculus of kidney; R19.5 Other fecal abnormalities; Z99.3 Dependence on wheelchair; Z79.01 Long term (current) use of anticoagulants; Z87.891 Personal history of nicotine dependence; Z86.73 Personal history of transient ischemic attack (TIA), and cerebral infarction without residual deficits
CPT/HCPCS: 36415; 36430; 70450; 71045; 74176; 80053; 81001; 82274; 83605; 83735; 84145; 84484; 85014; 85018; 85025; 85610; 85730; 86850; 86900; 86901; 86923; 87040; 87045; 87086; 87088; 87427; 87449; 87493; 93005; 96361; 96365; 99285; A9270; G0378; J2185; J7030; J7050; P9016

== ENCOUNTER 2023-12-21 10:06 | Inpatient (IN) | payer MEDICARE, SELFPAY ==
[2023-12-21] VITALS (13 sets, daily range): BP systolic 90–141; BP diastolic 51–88; PULSE 81–104; RESP 12–118; TEMP 36.2–36.7; O2SAT 94–100; BMI 37.8
--- NOTE | ~2023-12-21 | CT_ITS ---
EXAMINATION: CT abdomen pelvis wo con DATE: 12/21/2023 12:36 INDICATION: Abdominal distention. Urinary tract infection. Altered mental status. TECHNIQUE: Computed tomography (CT) of the abdomen and pelvis was performed without intravenous contr ast. Automated exposure control and iterative reconstruction technique were employed. The dose-length product was 2594.55 mGy-cm. COMPARISON: 11/18/2023 FINDINGS: Respiratory motion and mild atelectasis at the bilateral lung bases. Mild cardiomegaly. Aortic valve and mitral annular calcific lesion. No pericardial or pleural effusion. Several rim calcified gallsto ernestine in the otherwise normal gallbladder with no wall thickening or pericholecystic inflammatory stran ding to suggest acute cholecystitis. Liver, spleen, pancreas and bilateral adrenal glands are normal. Again seen is mild cortical thinning at both kidneys. There is also bilateral nephrolithiasis with a couple stones the larger measuring 4 mm in the left kidney and multiple stones or stone fragments in an upper pole calyx of the right kidney and measuring up to 9 mm in the right renal pelvis centered w ithin the loop of a right internal ureteral stent with distal loop in the bladder. No ureteral stones or hydronephrosis. Suprapubic Colindres catheter within the decompressed bladder. There is mild scattered colonic diverticulosis without adjacent inflammatory change to suggest divert iculitis. Large amount of colonic stool extending to the rectum. Measures up to 8.3 cm in diameter. S mall bowel and appendix are normal. No free intraperitoneal gas or fluid. No pathologically enlarged abdominal or pelvic lymphadenopathy. Severe lumbar spondylosis with bridging osteophytes at multiple levels in the lumbar and lower thoracic consistent with diffuse idiopathic skeletal hyperostosis (DIS H). In addition there is fusion across the L1-L4 disc spaces as well as across multiple bilateral lum bar facet joints. Advanced left and moderate to severe right hip osteoarthritis. Prominent subcutaneo us edema at the posterolateral aspect of the bilateral flanks, buttocks and proximal thighs. IMPRESSION: 1. Cholelithiasis. 2. Bilateral nonobstructing renal stones with right internal ureteral stent and suprapubic Colindres cath eter in expected positions. No hydronephrosis. 3. Persistent large amount of stool at the rectosigmoid colon which could be seen with constipation a nd fecal impaction. Reviewed, dictated and finalized at location A. IMPRESSION: 1. Cholelithiasis. 2. Bilateral nonobstructing renal stones with right internal ureteral stent and suprapubic Colindres catheter in expected positions. No hydronephrosis. 3. Persistent large amount of stool at the rectosigmoid colon which could be se en with constipation and fecal impaction.
--- NOTE | ~2023-12-21 | CT_ITS ---
CT head without contrast Indication: Altered mental status COMPARISON: 11/18/2023 Technique: Serial scans were obtained through the brain without the administration of contrast. Dose reduction technique was used on this scan by utilizing automated exposure control and iterative recon struction technique. The dose-length product (DLP) was 1210.00 mGy-cm. Findings: There is no evidence of intracranial hemorrhage, mass lesion, or acute infarct. Stable righ t frontal lobe encephalomalacia with right frontal craniotomy change. The ventricles and subarachnoid spaces are dilated, consistent with mild atrophy. Low attenuation regions are seen within the periv entricular white matter bilaterally, likely representing changes from chronic microvascular ischemic disease. There is no evidence of edema, mass effect or midline shift. The visualized paranasal sinu ses and mastoid air cells are clear. Impression: No intracranial hemorrhage, mass, or acute infarct. Stable right frontal encephalomalacia, with right frontal craniotomy change. Atrophy and chronic white matter changes, as above. Reviewed, dictated and finalized at [facility]. Impression: No intracranial hemorrhage, mass, or acute infarct. Stable right frontal encephalomalacia, with right frontal craniotomy change. Atrophy and chronic white matter changes, as above.
--- NOTE | 2023-12-21 10:11 | ECG_ITS ---
Test Date: 2023-12-21 10:28:06 Measurements Intervals [place] Rate: 92 P: 61 AL: 154 QRS: 49 QRSD: 102 T: 24 QT: 383 QTc: 474 Interpretive Statements SINUS RHYTHM Compared to ECG 11/18/2023 06:03:58 NO SIGNIFICANT CHANGES Electronically Signed On 12-21-2023 13:44:08 CDT by Rika Bryant M.D.
[2023-12-21 10:56] LABS: Basophils Percent Auto 0.3 % (0.2-1.2); Eosinophils Absolute Auto 0.1 K/mm3 (0-0.3); Eosinophils Percent Auto 1.1 % (0-4.4); Hematocrit 28.8 % (37.0-47.0); Hemoglobin 8.1 g/dL (12.0-15.0); Immature Granulocyte Absolute 0.05 K/mm3 (0.00-0.031); Immature Granulocyte Percent A 0.5 % (0-0.5); Lymphocytes Absolute Auto 0.56 K/mm3 (0.9-3.2); Lymphocytes Percent Auto 5.1 % (18.3-44.2); Mean Corpuscular HGB Conc 28.1 g/dl (32-36); Mean Corpuscular Hemoglobin 22.9 pg (26-34); Mean Corpuscular Volume 81.6 fl (80-100); Mean Platelet Volume 9.1 fl (7.4-10.4); Monocytes Absolute Auto 0.3 K/mm3 (0.1-0.6); Monocytes Percent Auto 2.3 % (2.6-8.5); Neutrophils Absolute Auto 10.1 K/mm3 (1.3-6.7); Neutrophils Percent Auto 90.7 % (45.5-73.1); Platelet Count Result 254 k/mm3 (150-375); Red Blood Count 3.53 M/mm3 (4.2-5.4); Red Cell Distribution Width 19.5 % (11.5-14.5); White Blood Count 11.1 K/mm3 (4.5-10.0)
[2023-12-21] MEDS: SODIUM CHLORIDE 0.9% IV 500 ML 999 ML IV CONT (11:03)
[2023-12-21 11:06] LABS: INR 1.1
[2023-12-21 11:07] LABS: Alanine Aminotransferase 17 U/L (6-35); Albumin Level 3.9 g/dL (3.5-5.1); Alkaline Phosphatase 88 U/L (38-126); Anion Gap 9 mmol/L (4-12); Aspartate Amino Transferase 20 U/L (14-36); Bilirubin,Total 0.3 mg/dL (0.2-1.3); Blood Urea Nitrogen 61 mg/dL (7-17); Carbon Dioxide 24 mmol/L (22-30); Chloride 105 mmol/L (98-107); Estimated CRCL calculation 16 ml/min; Estimated Glomerular Filt Rate 18; Glucose 137 mg/dL (65-110); Partial Thromboplastin Time 29.5 Seconds (22.3-36.8); Potassium 4.2 mmol/L (3.4-5.0); Sodium 138 mmol/L (137-145)
[2023-12-21 11:19] LABS: Add Urine Microscopic? YES; Appearance Urine Turbid (Clear); Bacteria Urine 4+ /hpf; Bilirubin Urine Negative (Negative); Blood Urine 2+ (Negative); Color Urine Yellow (Yellow); Glucose Urine UA Trace mg/dL (Negative); Hyaline Casts Urine Present /lpf; Ketones Urine Negative (Negative); Leukocyte Esterase Ur 3+ LEU/UL (Negative); Need Manual Microscopic Reviewed; Nitrate Urine Positive (Negative); Protein Urine 2+ mg/dL (Negative); Specific Grav Ur 1.012 (1.001-1.035); Squamous Epithelial Cell Urine None Seen /hpf (Few); Urobilinogen Urine 0.2 mg/dL (<2.0); WBC Clumps Urine Present /HPF; WBC Urine >100 /hpf (0-3); pH Urine 6.5 (5.0-9.0)
[2023-12-21 11:35] LABS: Hypochromasia 1+; Platelet Estimate Adequate (Adequate); Schistocytes None Seen
[2023-12-21 11:40] LABS: Creatine Kinase 51 U/L (30-135); Magnesium 2.3 mg/dL (1.6-2.3)
[2023-12-21 11:43] LABS: Lactic Acid Reflex 1.6 mmol/L (0.7-2.0)
--- NOTE | 2023-12-21 11:44 | ED.AMS ---
HPI - Altered Mental Status General Chief Complaint: Altered Mental Status <Marilia Bailey PA-C - Last Filed: 12/21/23 14:07> Stated Complaint: ams <Marilia Bailey PA-C - Last Filed: 12/21/23 14:07> Time Seen by Provider: 12/21/23 11:05 <Marilia Bailey PA-C - Last Filed: 12/21/23 14:07> Source: EMS, RN notes reviewed and old records reviewed <Marilia Bailey PA-C - Last Filed: 12/21/23 14:07> Mode of arrival: EMS <SAM Wheeler Last Filed: 12/21/23 14:07> Limitations: clinical condition <SAM Wheeler Last Filed: 12/21/23 14:07> History of Present Illness HPI narrative: Patient is an 83-year-old female who presents to the ED via EMS from home with report of altered mental status. Patient unable to provide any information. Information obtained from EMS report. Patient reportedly became altered this morning. Family reported that patient is normally alert and oriented x4, but was confused this morning, only alert to herself. Has history of frequent UTIs, concerned for UTI. Patient has history of suprapubic catheter. <Marilia Bailey PA-C - Last Filed: 12/21/23 14:07> Related Data Home Medications: Home Medications Medication Instructions Recorded Confirmed calcium 600 mg (as carbonate)-vit 1 tablet PO BID 09/02/19 12/21/23 D3 20 mcg (800 unit) chewable tablet (Caltrate plus D) ascorbic acid (vitamin C) 500 mg 500 mg PO DAILY 03/30/21 12/21/23 tablet folic acid 1 mg tablet 1 mg PO DAILY 03/30/21 12/21/23 amino acids-protein hydrolysate 17 1 ea PO BID 12/14/21 12/21/23 gram-100 kcal/30 mL oral liquid (Pro-Stat AWC) multivitamin 1 tablet PO DAILY 12/14/21 12/21/23 baclofen 10 mg tablet 10 mg PO TID PRN Muscle Spasm 03/27/23 12/21/23 hydroxyzine HCl 25 mg tablet 25 mg PO TID 03/27/23 12/21/23 apixaban 2.5 mg tablet (Eliquis) 2.5 mg PO Q12H 11/18/23 12/21/23 duloxetine 60 mg capsule,delayed 60 mg PO DAILY 11/18/23 12/21/23 release nystatin 100,000 unit/gram topical 1 applic topical BID 11/18/23 12/21/23 powder dapagliflozin propanediol 5 mg 5 mg PO DAILY 12/21/23 12/21/23 tablet (Farxiga) docusate sodium 100 mg capsule 100 mg PO DAILY 12/21/23 12/21/23 furosemide 40 mg tablet 40 mg PO DAILY 12/21/23 12/21/23 hydrocodone 5 mg-acetaminophen 325 1 tablet PO Q6H PRN Back Pain 12/21/23 12/21/23 mg tablet lactulose 10 gram/15 mL oral 15 ml PO DAILY 12/21/23 12/21/23 solution nystatin 100,000 unit/gram topical 1 applic topical Q12H 12/21/23 12/21/23 powder (Klayesta) pantoprazole 40 mg tablet,delayed 40 mg PO HS 12/21/23 12/21/23 release <SAM Wheeler Last Filed: 12/21/23 14:07> Allergies/Adverse Reactions: Allergies Allergy/AdvReac Type Severity Reaction Status Date / Time phenytoin [From Dilantin] Allergy Mild Hives Verified 12/21/23 15:18 Sulfa (Sulfonamide Allergy Unknown Unknown Verified 12/21/23 15:18 Antibiotics) pregabalin [From Lyrica] AdvReac Unknown DIZZY, Verified 12/21/23 15:18 SEDATED <SAM Wheeler Last Filed: 12/21/23 14:07> Review of Systems Review of Systems: All systems reviewed & are unremarkable except as noted in HPI. <SAM Wheeler Last Filed: 12/21/23 14:07> All systems reviewed & are unremarkable except as noted in HPI and below <SAM Wheeler Last Filed: 12/21/23 14:07> [facility] Past Medical History Medical History: Medical History Anemia, chronic disease Aortic stenosis Reportedly she has severe aortic stenosis and is followed by a ballistics teacher in [place]. Apparently she has been deemed not a surgical candidate at this time due to her other medical conditions. Brain aneurysm Chronic anticoagulation Chronic kidney disease, stage 4 (severe) Chronic obstructive pulmonary disease Colonization with multidr
[2023-12-21] MEDS: SODIUM CHLORIDE 0.9% IV 1,000 ML 999 ML IV CONT (12:13)
[2023-12-21] MEDS: MEROPENEM 1 GM/NS 100 ML 1 GM/100 ML BAG IVPB (12:13)
--- NOTE | 2023-12-21 13:55 | PM.IMHP ---
H&P: HPI History of Present Illness Date/Time: 12/21/23 13:45 Chief Complaint: Altered mental status. 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 She is awake and alert at the time my evaluation and answers some questions very appropriately and follows some commands but almost randomly she seems to be confused, for example picking at her telemetry leads or babbling nonsensically. As such some of the following history is obtained via a review of her EMR. The patient was admitted to the hospital on 11/18/2023 with acute on chronic kidney failure and a suspected urinary tract infection however her urine culture grew out mixed uzair. Her mentation and renal function improved with IV fluids. It should be noted that her hemoglobin dropped below 7 and her stool was Hemoccult positive prompting GI consultation however she declined colonoscopy. She was transfused to a stable hemoglobin and was able to be discharged near her baseline. Today she reportedly woke up confused and was sent to the emergency department. No other information was provided. At the time my evaluation she voices no complaints and specifically denied headache, vertigo, focal weakness, paresthesias, chest pain, back pain, abdominal pain, fever, nausea, and vomiting. In the ED: Vital signs on arrival include a blood pressure of 99/55, pulse 97, SpO2 97% room air, respiratory rate 16, temperature 97.7?. Labs were significant for WBC count of 11.1, hemoglobin 8.1, BUN 61, creatinine 2.60, lactic acid 1.6, ammonia less than 9. Urine was positive nitrate and leukocyte esterase positive with 4+ bacteria and greater than 100 WBC with 2+ blood and 11 to [address] showed no acute findings. CT of the abdomen pelvis showed bilateral nonobstructing renal stones with right internal ureteral stent and suprapubic Colindres catheter in expected positions with no hydronephrosis and a persistent large amount of stool at the rectosigmoid colon. Review of Systems Review of Systems: Unable to obtain accurately given her confusion. [facility] Past Medical History Medical History Anemia, chronic disease Aortic stenosis Reportedly she has severe aortic stenosis and is followed by a remote sensing technician in [place]. Apparently she has been deemed not a surgical candidate at this time due to her other medical conditions. Brain aneurysm Chronic anticoagulation Chronic kidney disease, stage 4 (severe) Chronic obstructive pulmonary disease Colonization with multidrug-resistant bacteria Urine cultures over the years have grown ESBL E coli, multidrug resistant Proteus mirabilis, and fluoroquinolone resistant Pseudomonas aeruginosa. 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 History of hysterectomy Family History Family History Father Acute myocardial infarction Social History Social History Social History: Healthcare power of claim attorney: rAnulfo Acosta ([phone]). Code status: Modified code, no CPR. Smoking packs per day: 1 Smoking cigarettes per day: 20.0 Years smoked: 20 Smokin
[2023-12-21 14:06] LABS: Ammonia < 9 umol/L (9-30)
[2023-12-21 14:22] LABS: Alveolar/Arterial O2 Gradient 31.1 mmHg; Base Excess ABG -6.8 mEq/l (+/-2.0); HCO3 ABG 19.2 mEq/l (22.0-26.0); Oxygen Content ABG 11.8 %vol (16.0-22.0); Oxygen Saturation ABG 92.5 % (95.0-100.0); Oxyhemoglobin 91.3 % THb (90.0-100.0); PCO2 ABG 40.2 mmHg (35.0-45.0); PO2 ABG 70.5 mmHg (80.0-100.0); Total Hemoglobin 9.1 g/dL (12.0-18.0); pH ABG 7.296 (7.350-7.450)
[2023-12-21 14:23] LABS: Carboxyhemoglobin 1.3 % THb (0-2.0); Device ROOM AIR; Fractional Inspired Oxygen 21 %; Methemoglobin ABG 0.3 %THb (0-1.5); Modified Allen's Test Pass; PO2 FiO2 Ratio Arterial Blood 3.36 %; Reduced Hemoglobin 7.1 %THb (0-5.0); Site Drawn RIGHT RADIAL
--- NOTE | 2023-12-21 15:00 | ADMGEN ---
This patient, Dasia Hernandez, was admitted to 2 Medical Room 251-01. Patient/family oriented to hospital policies and general routines including ID bracelet, bed and alarms, visiting hours, pain management, procedures, bathroom and other care routines, personal items, smoking policy, room service/diet, and visiting hours. Information on how to activate the Rapid Response Team has been discussed. Patient/Family are encouraged to report perceived risks to care and to ask questions if they do not understand what they are told or what they should do.
[2023-12-21 16:59] LABS: Glucose Point of Care 132 mg/dl (65-105)
[2023-12-21] MEDS: CALCIUM/VITAMIN D 500 MG/5 MCG (200 I.U.) TABLET PO (17:04)
[2023-12-21] MEDS: BISACODYL 10 MG SUPPOSITORY RECTAL (17:04)
[2023-12-21 18:16] LABS: Alveolar/Arterial O2 Gradient 18.3 mmHg; Base Excess ABG -3.1 mEq/l (+/-2.0); Carboxyhemoglobin 1.3 % THb (0-2.0); Fractional Inspired Oxygen 21 %; HCO3 ABG 22.8 mEq/l (22.0-26.0); Methemoglobin ABG 0.3 %THb (0-1.5); Oxygen Content ABG 12.1 %vol (16.0-22.0); Oxygen Saturation ABG 94.6 % (95.0-100.0); PCO2 ABG 44.7 mmHg (35.0-45.0); PO2 ABG 77.9 mmHg (80.0-100.0); PO2 FiO2 Ratio Arterial Blood 3.71 %; Reduced Hemoglobin 4.4 %THb (0-5.0); Total Hemoglobin 9.1 g/dL (12.0-18.0); pH ABG 7.326 (7.350-7.450)
[2023-12-21 18:18] LABS: Device ROOM AIR; Site Drawn LEFT RADIAL
[2023-12-21 18:53] LABS: Anion Gap 7 mmol/L (4-12); Blood Urea Nitrogen 57 mg/dL (7-17); Calcium 8.9 mg/dL (8.4-10.2); Carbon Dioxide 24 mmol/L (22-30); Chloride 107 mmol/L (98-107); Estimated CRCL calculation 17 ml/min; Estimated Glomerular Filt Rate 19; Glucose 163 mg/dL (65-110); Potassium 4.4 mmol/L (3.4-5.0); Sodium 138 mmol/L (137-145)
[2023-12-21 19:10] LABS: Procalcitonin 0.1 ng/mL
[2023-12-21 19:21] LABS: CRP 2.2 mg/dL (<1.0)
[2023-12-21 19:39] LABS: Hemoglobin A1C 5.1 % (<5.7)
[2023-12-21] MEDS: carvediloL 6.25 MG TABLET PO (20:11)
[2023-12-21] MEDS: PANTOPRAZOLE 40 MG TABLET PO (20:11)
[2023-12-21] MEDS: APIXABAN 2.5 MG TABLET PO (20:11)
[2023-12-21 20:46] LABS: Glucose Point of Care 129 mg/dl (65-105)
[2023-12-22] VITALS (12 sets, daily range): BP systolic 105–120; BP diastolic 53–72; PULSE 85–96; RESP 18–20; TEMP 36.3–36.9; O2SAT 94–96
[2023-12-22 06:08] LABS: Hematocrit 29.4 % (37.0-47.0); Hemoglobin 8.6 g/dL (12.0-15.0); Mean Corpuscular HGB Conc 29.3 g/dl (32-36); Mean Corpuscular Hemoglobin 23.8 pg (26-34); Mean Corpuscular Volume 81.2 fl (80-100); Mean Platelet Volume 8.7 fl (7.4-10.4); Platelet Count Result 288 k/mm3 (150-375); Red Blood Count 3.62 M/mm3 (4.2-5.4); Red Cell Distribution Width 19.6 % (11.5-14.5); White Blood Count 9.1 K/mm3 (4.5-10.0)
[2023-12-22 06:26] LABS: Anion Gap 9 mmol/L (4-12); Blood Urea Nitrogen 52 mg/dL (7-17); Calcium 9.3 mg/dL (8.4-10.2); Carbon Dioxide 27 mmol/L (22-30); Chloride 106 mmol/L (98-107); Estimated CRCL calculation 17 ml/min; Estimated Glomerular Filt Rate 19; Glucose 89 mg/dL (65-110); Magnesium 2.5 mg/dL (1.6-2.3); Potassium 4.1 mmol/L (3.4-5.0); Sodium 142 mmol/L (137-145)
[2023-12-22 08:08] LABS: Glucose Point of Care 106 mg/dl (65-105)
[2023-12-22] MEDS: polyethylene glycoL 3350 17 GM POWD.PACK PO (08:26)
[2023-12-22] MEDS: LACTULOSE 20 GM/30 ML UDC 10 GM PO (08:26)
[2023-12-22] MEDS: MULTIVITAMINS THERAPEUTIC TAB (*BKC) 1 TABLET PO (08:27)
[2023-12-22] MEDS: APIXABAN 2.5 MG TABLET PO ×2 (08:27→20:14)
[2023-12-22] MEDS: DOCUSATE SODIUM 100 MG CAPSULE PO (08:27)
[2023-12-22] MEDS: carvediloL 6.25 MG TABLET PO ×2 (08:27→20:14)
[2023-12-22] MEDS: ASCORBIC ACID 500 MG TABLET PO (08:27)
[2023-12-22] MEDS: EMPAGLIFLOZIN 10 MG TABLET BY MOUTH (08:27)
[2023-12-22] MEDS: CALCIUM/VITAMIN D 500 MG/5 MCG (200 I.U.) TABLET PO ×2 (08:27→17:03)
[2023-12-22] MEDS: FOLIC ACID 1 MG TABLET PO (08:27)
[2023-12-22] MEDS: FUROSEMIDE 40 MG TABLET PO (08:27)
--- NOTE | 2023-12-22 09:08 | PM.IMPN ---
Progress Note: A&P Assessment and Plan (1) Altered mental status: Code(s): R41.82 - Altered mental status, unspecified Status: Acute Assessment and Plan: 12/22/23: Continue neuro checks Head CT was negative for any acute intracranial process, stable right frontal encephalomalacia with right frontal craniotomy changes, atrophy and chronic white matter disease (2) Colonization with multidrug-resistant bacteria: Code(s): Z22.322 - Carrier or suspected carrier of Methicillin resistant Staphylococcus aureus Status: Acute Assessment and Plan: 12/22/23: UA showed turbid appearance, 2+ urine protein, trace glucose, 2+ urine blood, positive nitrate, 3+ leukocytes, 11-20 urine RBC, greater than 100, 4+ bacteria. Blood and urine cultures were obtained and pending. Patient was given a dose of meropenem in the ED Antibiotics held due to possible colonization of multidrug resistant bacteria due to chronic suprapubic catheter. (3) Anemia, chronic disease: Code(s): D63.8 - Anemia in other chronic diseases classified elsewhere Status: Chronic Assessment and Plan: 12/22/23: Likely due to chronic renal disease Hemoglobin 8.6 Continue to trend (4) Chronic anticoagulation: Code(s): Z79.01 - intermediate (current) use of anticoagulants Status: Chronic Assessment and Plan: 12/22/23: Currently on Eliquis 2.5 mg b.i.d. (5) Chronic kidney disease, stage 4 (severe): Code(s): N18.4 - Chronic kidney disease, stage 4 (severe) Status: Acute Assessment and Plan: 12/22/23: Creatinine 2.40, EGFR 19 Appears to be at baseline or near baseline (6) Diastolic heart failure: Code(s): I50.30 - Unspecified diastolic (congestive) heart failure Status: Acute Assessment and Plan: 12/22/23: Last echo reviewed from 08/22/2021 and showed a normal LV systolic function with an estimated EF of greater than 70%, moderate to severe aortic valve stenosis, abnormal diastolic function EKG from yesterday showed sinus rhythm with a rate of 92, QTC 474 Continue Lasix 40 mg daily (7) Fecal impaction: Code(s): K56.41 - Fecal impaction Status: Acute Assessment and Plan: 12/22/23: Continue lactulose and MiraLax CT of the abdomen and pelvis showing large stool burden at the rectosigmoid colon (8) Hypothyroidism: Qualifiers: Hypothyroidism type: unspecified Qualified Code(s): E03.9 - Hypothyroidism, unspecified Code(s): E03.9 - Hypothyroidism, unspecified Status: Chronic Assessment and Plan: 12/22/23: Continue Synthroid (9) Kidney stones: Code(s): N20.0 - Calculus of kidney Status: Chronic Assessment and Plan: Of note (10) Ureteral stent present: Code(s): Z96.0 - Presence of urogenital implants Status: Acute Assessment and Plan: Of note Time Spent With Patient Time with patient: 25 - 35 minutes Subjective Date/time seen: 12/22/23 09:08 Interval history: Interval history: This is a 83-year-old female who presented to the hospital on 12/21/2023 with altered mental status. Workup in the hospital included head CT which was negative for intracranial hemorrhage, mass or acute infarct, stable right frontal encephalomalacia with right frontal craniotomy change, atrophy and chronic white matter changes. Abdomen/pelvis CT showed cholelithiasis, bilateral nonobstructing renal stones with right internal urethral stent and suprapubic Colindres catheter in expected position, no hydronephrosis, persistent large amount of stool at the rectosigmoid colon which could be seen with constipation and fecal impaction. Initial labs showed a white blood cell count of 11.1, hemoglobin 8.1, ABG showed a pH of 7.296, bicarb 19.2, PO2 70.5, creatinine 2.60, EGFR 18, ammonia level less than 9, C reactive protein 2.2, procalcitonin 0.1, TSH 1.680. UA was obtained which showed turbid appeara
[2023-12-22 12:04] LABS: Glucose Point of Care 100 mg/dl (65-105)
[2023-12-22 17:07] LABS: Glucose Point of Care 112 mg/dl (65-105)
[2023-12-22] MEDS: PANTOPRAZOLE 40 MG TABLET PO (20:16)
[2023-12-22 21:07] LABS: Glucose Point of Care 110 mg/dl (65-105)
[2023-12-23] VITALS (11 sets, daily range): BP systolic 102–135; BP diastolic 54–65; PULSE 84–92; RESP 16–18; TEMP 36.5–37.1; O2SAT 95–97
[2023-12-23 08:26] LABS: Glucose Point of Care 92 mg/dl (65-105)
--- NOTE | 2023-12-23 08:29 | P.PNIM_ITS ---
Progress Note: A&P Assessment and Plan (1) Altered mental status: Code(s): R41.82 - Altered mental status, unspecified Status: Acute Assessment and Plan: 12/22/23: * Continue neuro checks * Head CT was negative for any acute intracranial process, stable right frontal encephalomalacia with right frontal craniotomy changes, atrophy and chronic white matter disease 12/23/23: * No change to current treatment plan (2) Colonization with multidrug-resistant bacteria: Code(s): Z22.322 - Carrier or suspected carrier of Methicillin resistant Staphylococcus aureus Status: Acute Assessment and Plan: 12/22/23: * UA showed turbid appearance, 2+ urine protein, trace glucose, 2+ urine blood, positive nitrate, 3+ leukocytes, 11-20 urine RBC, greater than 100, 4+ bacteria. * Blood and urine cultures were obtained and pending. * Patient was given a dose of meropenem in the ED * Antibiotics held due to possible colonization of multidrug resistant bacteria due to chronic suprapubic catheter. 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 12/23/23: * No change to current treatment plan (5) Diastolic heart failure: Code(s): I50.30 - Unspecified diastolic (congestive) heart failure Status: Acute Assessment and Plan: 12/22/23: * Last echo reviewed from 08/22/2021 and showed a normal LV systolic function with an estimated EF of greater than 70%, moderate to severe aortic valve stenosis, abnormal diastolic function * EKG from yesterday showed sinus rhythm with a rate of 92, QTC 474 * Continue Lasix 40 mg daily 12/22/23: * Continue Lasix 40 mg daily (6) Fecal impaction: Code(s): K56.41 - Fecal impaction Status: Acute Assessment and Plan: 12/22/23: * Continue lactulose and MiraLax * CT of the abdomen and pelvis showing large stool burden at the rectosigmoid colon 12/23/23: * Patient had 1 bowel movement today (7) Hypothyroidism: Qualifiers: Hypothyroidism type: unspecified Qualified Code(s): E03.9 - Hypothyroidism, unspecified Code(s): E03.9 - Hypothyroidism, unspecified Status: Chronic Assessment and Plan: 12/22/23: * Continue Synthroid 12/23/23: * No change to current treatment plan (8) Kidney stones: Code(s): N20.0 - Calculus of kidney Status: Chronic Assessment and Plan: Of note (9) Ureteral stent present: Code(s): Z96.0 - Presence of urogenital implants Status: Acute Assessment and Plan: Of note Time Spent With Patient Time with patient: Greater than 35 minutes Subjective Date/time seen: 12/23/23 08:29 Interval history: Interval history: This is a 83-year-old female who presented to the hospital on 12/21/2023 with altered mental status. Workup in the hospital included head CT which was negative for intracranial hemorrhage, mass or acute infarct, stable right front
--- NOTE | 2023-12-23 08:29 | PM.IMPN ---
Progress Note: A&P Assessment and Plan (1) Altered mental status: Code(s): R41.82 - Altered mental status, unspecified Status: Acute Assessment and Plan: 12/22/23: Continue neuro checks Head CT was negative for any acute intracranial process, stable right frontal encephalomalacia with right frontal craniotomy changes, atrophy and chronic white matter disease 12/23/23: No change to current treatment plan (2) Colonization with multidrug-resistant bacteria: Code(s): Z22.322 - Carrier or suspected carrier of Methicillin resistant Staphylococcus aureus Status: Acute Assessment and Plan: 12/22/23: UA showed turbid appearance, 2+ urine protein, trace glucose, 2+ urine blood, positive nitrate, 3+ leukocytes, 11-20 urine RBC, greater than 100, 4+ bacteria. Blood and urine cultures were obtained and pending. Patient was given a dose of meropenem in the ED Antibiotics held due to possible colonization of multidrug resistant bacteria due to chronic suprapubic catheter. 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 12/23/23: No change to current treatment plan (5) Diastolic heart failure: Code(s): I50.30 - Unspecified diastolic (congestive) heart failure Status: Acute Assessment and Plan: 12/22/23: Last echo reviewed from 08/22/2021 and showed a normal LV systolic function with an estimated EF of greater than 70%, moderate to severe aortic valve stenosis, abnormal diastolic function EKG from yesterday showed sinus rhythm with a rate of 92, QTC 474 Continue Lasix 40 mg daily 12/22/23: Continue Lasix 40 mg daily (6) Fecal impaction: Code(s): K56.41 - Fecal impaction Status: Acute Assessment and Plan: 12/22/23: Continue lactulose and MiraLax CT of the abdomen and pelvis showing large stool burden at the rectosigmoid colon 12/23/23: Patient had 1 bowel movement today (7) Hypothyroidism: Qualifiers: Hypothyroidism type: unspecified Qualified Code(s): E03.9 - Hypothyroidism, unspecified Code(s): E03.9 - Hypothyroidism, unspecified Status: Chronic Assessment and Plan: 12/22/23: Continue Synthroid 12/23/23: No change to current treatment plan (8) Kidney stones: Code(s): N20.0 - Calculus of kidney Status: Chronic Assessment and Plan: Of note (9) Ureteral stent present: Code(s): Z96.0 - Presence of urogenital implants Status: Acute Assessment and Plan: Of note Time Spent With Patient Time with patient: Greater than 35 minutes Subjective Date/time seen: 12/23/23 08:29 Interval history: Interval history: This is a 83-year-old female who presented to the hospital on 12/21/2023 with altered mental status. Workup in the hospital included head CT which was negative for intracranial hemorrhage, mass or acute infarct, stable right frontal encephalomalacia with right frontal craniotomy change, atrophy and chronic white matter changes. Abdomen/pelvis CT showed cholelithiasis, bilateral nonobstructing renal stones with right internal urethral stent and suprapubic Colindres catheter in expected position, no hydronephrosis, persistent large amount of stool at the rectosigmoid colon which could be seen with constipation and fecal impaction. Initial labs showed a white blood cell count of 11.1, hemoglobin 8.1, ABG showed a pH of 7.296, bicarb 19.
[2023-12-23 08:40] LABS: Basophils Absolute Auto 0.1 K/mm3 (0.0-0.1); Basophils Percent Auto 0.7 % (0.2-1.2); Eosinophils Absolute Auto 0.5 K/mm3 (0-0.3); Hemoglobin 8.7 g/dL (12.0-15.0); Immature Granulocyte Absolute 0.05 K/mm3 (0.00-0.031); Immature Granulocyte Percent A 0.6 % (0-0.5); Lymphocytes Absolute Auto 1.12 K/mm3 (0.9-3.2); Lymphocytes Percent Auto 12.6 % (18.3-44.2); Mean Corpuscular Hemoglobin 23.5 pg (26-34); Mean Corpuscular Volume 80.9 fl (80-100); Mean Platelet Volume 8.5 fl (7.4-10.4); Monocytes Absolute Auto 0.6 K/mm3 (0.1-0.6); Neutrophils Absolute Auto 6.5 K/mm3 (1.3-6.7); Neutrophils Percent Auto 73.1 % (45.5-73.1); Platelet Count Result 284 k/mm3 (150-375); Red Blood Count 3.71 M/mm3 (4.2-5.4); Red Cell Distribution Width 19.6 % (11.5-14.5); White Blood Count 8.9 K/mm3 (4.5-10.0)
[2023-12-23 09:12] LABS: Alanine Aminotransferase 15 U/L (6-35); Albumin Level 3.9 g/dL (3.5-5.1); Alkaline Phosphatase 86 U/L (38-126); Anion Gap 9 mmol/L (4-12); Aspartate Amino Transferase 22 U/L (14-36); Bilirubin,Total 0.3 mg/dL (0.2-1.3); Blood Urea Nitrogen 50 mg/dL (7-17); Calcium 9.1 mg/dL (8.4-10.2); Carbon Dioxide 26 mmol/L (22-30); Chloride 102 mmol/L (98-107); Estimated CRCL calculation 17 ml/min; Estimated Glomerular Filt Rate 19; Glucose 99 mg/dL (65-110); Potassium 4.3 mmol/L (3.4-5.0); Sodium 137 mmol/L (137-145)
[2023-12-23] MEDS: LACTULOSE 20 GM/30 ML UDC 10 GM PO (09:22)
[2023-12-23] MEDS: CALCIUM/VITAMIN D 500 MG/5 MCG (200 I.U.) TABLET PO ×2 (09:22→17:59)
[2023-12-23] MEDS: APIXABAN 2.5 MG TABLET PO ×2 (09:23→20:32)
[2023-12-23] MEDS: MULTIVITAMINS THERAPEUTIC TAB (*BKC) 1 TABLET PO (09:23)
[2023-12-23] MEDS: DOCUSATE SODIUM 100 MG CAPSULE PO (09:23)
[2023-12-23] MEDS: FOLIC ACID 1 MG TABLET PO (09:23)
[2023-12-23] MEDS: polyethylene glycoL 3350 17 GM POWD.PACK PO (09:23)
[2023-12-23] MEDS: carvediloL 6.25 MG TABLET PO ×2 (09:23→20:31)
[2023-12-23] MEDS: ASCORBIC ACID 500 MG TABLET PO (09:23)
[2023-12-23] MEDS: FUROSEMIDE 40 MG TABLET PO (09:23)
[2023-12-23 10:21] LABS: Platelet Estimate Adequate (Adequate); Schistocytes None Seen
[2023-12-23 10:22] LABS: Hypochromasia 2+
[2023-12-23 12:06] LABS: Glucose Point of Care 124 mg/dl (65-105)
--- NOTE | 2023-12-23 15:20 | PCOTNOTE ---
Attempted to see pt. for occupational therapy evaluation. Per chair, previous evaluations, care coordination,and nursing, pt. is dependent at baseline, using timothy lift and assist for all ADLs from caregivers/family. Called hospitalist, Jennyfer Caldera, to confirm, left message. Cancelling orders as pt. is at baseline. Re-order if appropriate
[2023-12-23 17:08] LABS: Glucose Point of Care 137 mg/dl (65-105)
[2023-12-23] MEDS: PANTOPRAZOLE 40 MG TABLET PO (20:31)
[2023-12-23 20:37] LABS: Glucose Point of Care 116 mg/dl (65-105)
[2023-12-24] VITALS (8 sets, daily range): BP systolic 85–137; BP diastolic 43–60; PULSE 87–98; RESP 18; TEMP 35.9–36.8; O2SAT 93–97; BMI 37.0
--- NOTE | 2023-12-24 07:39 | PCPTNOTE ---
Pt dependent at baseline requiring timothy lift for transfers. Discharging therapy orders due to pt being at baseline.
[2023-12-24 08:09] LABS: Basophils Absolute Auto 0.1 K/mm3 (0.0-0.1); Basophils Percent Auto 0.6 % (0.2-1.2); Eosinophils Absolute Auto 0.5 K/mm3 (0-0.3); Eosinophils Percent Auto 5.9 % (0-4.4); Hematocrit 31.4 % (37.0-47.0); Hemoglobin 9.1 g/dL (12.0-15.0); Immature Granulocyte Absolute 0.02 K/mm3 (0.00-0.031); Immature Granulocyte Percent A 0.2 % (0-0.5); Lymphocytes Absolute Auto 1.04 K/mm3 (0.9-3.2); Lymphocytes Percent Auto 11.5 % (18.3-44.2); Mean Corpuscular Volume 79.5 fl (80-100); Monocytes Absolute Auto 0.7 K/mm3 (0.1-0.6); Monocytes Percent Auto 7.6 % (2.6-8.5); Neutrophils Absolute Auto 6.7 K/mm3 (1.3-6.7); Neutrophils Percent Auto 74.2 % (45.5-73.1); Platelet Count Result 290 k/mm3 (150-375); Red Blood Count 3.95 M/mm3 (4.2-5.4); Red Cell Distribution Width 19.2 % (11.5-14.5)
[2023-12-24 08:18] LABS: Glucose Point of Care 101 mg/dl (65-105)
[2023-12-24] MEDS: APIXABAN 2.5 MG TABLET PO (08:18)
[2023-12-24] MEDS: CALCIUM/VITAMIN D 500 MG/5 MCG (200 I.U.) TABLET PO (08:19)
[2023-12-24] MEDS: carvediloL 6.25 MG TABLET PO (08:19)
[2023-12-24] MEDS: MULTIVITAMINS THERAPEUTIC TAB (*BKC) 1 TABLET PO (08:19)
[2023-12-24] MEDS: ASCORBIC ACID 500 MG TABLET PO (08:19)
[2023-12-24] MEDS: FUROSEMIDE 40 MG TABLET PO (08:19)
[2023-12-24] MEDS: FOLIC ACID 1 MG TABLET PO (08:19)
[2023-12-24 08:20] LABS: Alanine Aminotransferase 18 U/L (6-35); Albumin Level 3.9 g/dL (3.5-5.1); Alkaline Phosphatase 95 U/L (38-126); Anion Gap 8 mmol/L (4-12); Aspartate Amino Transferase 29 U/L (14-36); Bilirubin,Total 0.4 mg/dL (0.2-1.3); Blood Urea Nitrogen 44 mg/dL (7-17); Calcium 9.4 mg/dL (8.4-10.2); Carbon Dioxide 28 mmol/L (22-30); Chloride 100 mmol/L (98-107); Estimated CRCL calculation 17 ml/min; Estimated Glomerular Filt Rate 19; Glucose 108 mg/dL (65-110); Potassium 4.3 mmol/L (3.4-5.0); Sodium 136 mmol/L (137-145)
[2023-12-24 08:33] LABS: Anisocytosis 1+; Hypochromasia 1+; Platelet Estimate Adequate (Adequate); Schistocytes None Seen
[2023-12-24 11:41] LABS: Glucose Point of Care 101 mg/dl (65-105)
--- NOTE | 2023-12-24 12:35 | PM.DS ---
DS: Admitting Diagnosis Discharge Date 12/24/23 Admitting Diagnosis Altered mental status Anemia Chronic anticoagulation Chronic kidney disease stage 4 Colonization with multidrug resistant bacteria Diastolic heart failure Fecal impaction Hypothyroidism Kidney stones Urethral stent present DS: Discharge Diagnosis Discharge Diagnosis (1) Altered mental status: Code(s): R41.82 - Altered mental status, unspecified Status: Acute (2) Colonization with multidrug-resistant bacteria: Code(s): Z22.322 - Carrier or suspected carrier of Methicillin resistant Staphylococcus aureus Status: Acute (3) Anemia, chronic disease: Code(s): D63.8 - Anemia in other chronic diseases classified elsewhere Status: Chronic (4) Chronic anticoagulation: 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 Status: Chronic (5) Diastolic heart failure: Code(s): I50.30 - Unspecified diastolic (congestive) heart failure Status: Acute (6) Fecal impaction: Code(s): K56.41 - Fecal impaction Status: Acute (7) Hypothyroidism: Qualifiers: Hypothyroidism type: unspecified Qualified Code(s): E03.9 - Hypothyroidism, unspecified Code(s): E03.9 - Hypothyroidism, unspecified Status: Chronic (8) Kidney stones: Code(s): N20.0 - Calculus of kidney Status: Chronic (9) Ureteral stent present: Code(s): Z96.0 - Presence of urogenital implants Status: Acute DS: Summary Hospital Course Reason for hospitalization: Altered mental status Anemia Chronic anticoagulation Chronic kidney disease stage 4 Colonization with multidrug resistant bacteria Diastolic heart failure Fecal impaction Hypothyroidism Kidney stones Urethral stent present Hospital Course: This is a 83-year-old female who presented to the hospital on 12/21/2023 with altered mental status. Workup in the hospital included head CT which was negative for intracranial hemorrhage, mass or acute infarct, stable right frontal encephalomalacia with right frontal craniotomy change, atrophy and chronic white matter changes. Abdomen/pelvis CT showed cholelithiasis, bilateral nonobstructing renal stones with right internal urethral stent and suprapubic Colindres catheter in expected position, no hydronephrosis, persistent large amount of stool at the rectosigmoid colon which could be seen with constipation and fecal impaction. Initial labs showed a white blood cell count of 11.1, hemoglobin 8.1, ABG showed a pH of 7.296, bicarb 19.2, PO2 70.5, creatinine 2.60, EGFR 18, ammonia level less than 9, C reactive protein 2.2, procalcitonin 0.1, TSH 1.680. UA was obtained which showed turbid appearance, 2+ urine protein, trace glucose, 2+ urine blood, positive nitrate, 3+ leukocytes, 11-20 urine RBC, greater than 100 urine WBC, 4+ bacteria. Blood and urine cultures were obtained and pending. Patient has history ESBL in the urine with multiple drug resistant on sensitivities. She has had had history of E coli-drug resistant back in July of this year. She also has history of Proteus mirabilis which was also drug resistant on sensitivities. Patient was given IV fluids and meropenem in the ED. Antibiotics were discontinued. UC was negative for bacteria. Her mentation did improve and is now Alert and oriented x3. We did a mini mental examination and she got 25/30 questions right. I asked her if she was ever diagnosed with sleep apnea and she admits that she does have sleep apnea but has not wore a cpap in 15 years or more. I did discuss with her that her moments of confusion may be the result of untreated sleep apnea. I discussed with her that she will require another outpatient sleep study since it has been so long. Spoke with son in law who is the power of consumer attorney and summarized her workup and stay while inpatient, also the need for an outpatient sleep study. Vital signs are stable, she is afebrile, she is cur
== END 2023-12-24 16:25 | disposition home health service (06) | DRG 948 ==
LOC: ANHED 12:24 → ANH2MED 14:30
PROVIDERS: Physician Assistant; Student in an Organized Health Care Education/Training Program; Admitting Provider Internal Medicine; Emergency Provider Physician Assistant; PCP Internal Medicine; Visit Provider Nurse Practitioner Acute Care
DX: R41.82 Altered mental status, unspecified (principal); I13.0 Hypertensive heart and chronic kidney disease with heart failure and stage 1 through stage 4 chronic kidney disease, or unspecified chronic kidney disease; I50.32 Chronic diastolic (congestive) heart failure; N18.4 Chronic kidney disease, stage 4 (severe); D63.8 Anemia in other chronic diseases classified elsewhere; I35.0 Nonrheumatic aortic (valve) stenosis; D50.9 Iron deficiency anemia, unspecified; E03.9 Hypothyroidism, unspecified; J44.9 Chronic obstructive pulmonary disease, unspecified; K80.20 Calculus of gallbladder without cholecystitis without obstruction; K56.41 Fecal impaction; N20.0 Calculus of kidney; F32.A Depression, unspecified; F41.9 Anxiety disorder, unspecified; Z96.0 Presence of urogenital implants; Z79.01 Long term (current) use of anticoagulants; Z22.358 Carrier of other Enterobacterales; Z99.3 Dependence on wheelchair; Z93.50 Unspecified cystostomy status
CPT/HCPCS: 36415; 36600; 70450; 74176; 80048; 80053; 81001; 82140; 82375; 82550; 82805; 82948; 83036; 83050; 83605; 83735; 84145; 84443; 85018; 85025; 85027; 85610; 85730; 86140; 87040; 87086; 93005; 96361; 96365; 99285; A9270; G0378; J2185; J7030; J7040

== ENCOUNTER 2023-12-31 07:59 | Inpatient (IN) | payer MEDICARE, SELFPAY ==
[2023-12-31] VITALS (20 sets, daily range): BP systolic 75–160; BP diastolic 37–120; PULSE 85–125; RESP 13–20; TEMP 36.5–37; O2SAT 95–100; BMI 38.9
--- NOTE | ~2023-12-31 | CT_ITS ---
EXAMINATION: CT brain wo con DATE: 12/31/2023 10:43 INDICATION: Confusion. TECHNIQUE: Computed tomography (CT) of the head was performed without intravenous contrast. The mA wa s adjusted according to patient size. Iterative reconstruction technique was employed. The dose-lengt h product was 1210.67 mGy-cm. COMPARISON: Head CT 12/21/2023, 11/18/2023 FINDINGS: Motion artifact is noted. There is chronic encephalomalacia in right frontal lobe and anter ior right temporal lobe. There are changes of right-sided craniotomy. There are old fractures of the right orbital roof and lateral wall. There is no intracranial hemorrhage, acute infarction, or abnorm al intracranial mass lesion. There is ex vacuo dilatation of frontal horn of right lateral ventricle. The paranasal sinuses are clear. The mastoid air cells are normal. IMPRESSION: 1. 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 Reviewed, dictated and finalized at location B. IMPRESSION: 1. Chronic encephalomalacia in right frontal lobe and anterior right temporal l obe.
--- NOTE | ~2023-12-31 | XR_ITS ---
EXAMINATION: XR stent kub - surgery DATE: 01/03/2024 14:17 INDICATION: Right ureteral stent exchange TECHNIQUE: 5 fluoroscopic images of the abdomen and pelvis were obtained during procedure performed antonio Camargo. Radiologist was not present for the imaging or procedure. The amount of fluoroscopy lala e used during this procedure was 2.9 minutes. Total DAP was 3.77 mGym^2 COMPARISON: None. FINDINGS: Images demonstrate a wire advanced through the prior right internal ureteral stent to the level of th e renal pelvis. Subsequent images demonstrate a new stent with loops formed in the right renal pelvis . IMPRESSION: 1. Fluoroscopy utilized during right internal ureteral stent exchange with proximal loop of a new ashley nt projecting over the expected location of the right renal pelvis. See procedure note for further de tail. Reviewed, dictated and finalized at location A. IMPRESSION: 1. Fluoroscopy utilized during right internal ureteral stent exchange with prox imal loop of a new stent projecting over the expected location of the right geovanny al pelvis. See procedure note for further detail.
--- NOTE | ~2023-12-31 | XR_ITS ---
EXAMINATION: XR chest 1V portable DATE: 12/31/2023 09:32 INDICATION: Transient alteration of awareness. TECHNIQUE: A single frontal view of the chest was obtained. COMPARISON: Chest single view 11/18/2023, CT abdomen and pelvis 12/21/2023 FINDINGS: The patient is rotated to her left. There is no pneumonia, pleural effusion, or pneumothora x. The heart size is normal. IMPRESSION: 1. No acute cardiopulmonary disease. Reviewed, dictated and finalized at location B.
--- NOTE | 2023-12-31 08:20 | ECG_ITS ---
Test Date: 2023-12-31 08:33:14 Measurements Intervals [place] Rate: 99 P: 69 MI: 153 QRS: 52 QRSD: 90 T: 22 QT: 341 QTc: 438 Interpretive Statements SINUS RHYTHM WITH OCCASIONAL SUPRAVENTRICULAR PREMATURE COMPLEXES LOW QRS VOLTAGE IN PRECORDIAL LEADS [QRS DEFLECTION < 1.0 mV IN CHEST LEADS] Nonspecific ST-T waves Compared to ECG 12/21/2023 10:28:06 Low QRS voltage now present Electronically Signed On 12-31-2023 11:01:18 CDT by Jeremiah Finney M.D.
--- NOTE | 2023-12-31 08:31 | ED_ITS ---
HPI - Altered Mental Status General Chief Complaint: Altered Mental Status Stated Complaint: ams Time Seen by Provider: 12/31/23 08:08 Source: family, RN notes reviewed and old records reviewed Mode of arrival: EMS Limitations: altered mental status History of Present Illness HPI narrative: This is a 83 year old female with history of suprapubic catheter, encephalopathy who presents via EMS For evaluation of altered mental status. PAtient was discharged 1 week ago for similar symptoms. IT was thought to be d ue to UTI and CO2 retention. Family was discharge to home and her family states she was doing well until 2 days ago. Her daughter states patient is calling out to her grandparents and she is confused. She also states she has not eaten anything since yesterday. Related Data Home Medications Medication Instructions Recorded Confirmed calcium 600 mg (as carbonate)-vit 1 tablet PO BID 09/02/19 12/31/23 D3 20 mcg (800 unit) chewable tablet (Caltrate plus D) ascorbic acid (vitamin C) 500 mg 500 mg PO DAILY 03/30/21 12/31/23 tablet folic acid 1 mg tablet 1 mg PO DAILY 03/30/21 12/31/23 amino acids-protein hydrolysate 17 1 ea PO BID 12/14/21 12/31/23 gram-100 kcal/30 mL oral liquid (Pro-Stat AWC) multivitamin 1 tablet PO DAILY 12/14/21 12/31/23 baclofen 10 mg tablet 10 mg PO TID PRN Muscle Spasm 03/27/23 12/31/23 hydroxyzine HCl 25 mg tablet 25 mg PO TID 03/27/23 12/31/23 apixaban 2.5 mg tablet (Eliquis) 2.5 mg PO Q12H 11/18/23 12/31/23 duloxetine 60 mg capsule,delayed 60 mg PO DAILY 11/18/23 12/31/23 release nystatin 100,000 unit/gram topical 1 applic topical BID 11/18/23 12/31/23 powder dapagliflozin propanediol 5 mg 5 mg PO DAILY 12/21/23 12/31/23 tablet (Farxiga) docusate sodium 100 mg capsule 100 mg PO DAILY 12/21/23 12/31/23 furosemide 40 mg tablet 40 mg PO DAILY 12/21/23 12/31/23 hydrocodone 5 mg-acetaminophen 325 1 tablet PO Q6H PRN Back Pain 12/21/23 12/31/23 mg tablet lactulose 10 gram/15 mL oral 15 ml PO DAILY 12/21/23 12/31/23 solution nystatin 100,000 unit/gram topical 1 applic topical Q12H 12/21/23 12/31/23 powder (Klayesta) pantoprazole 40 mg tablet,delayed 40 mg PO HS 12/21/23 12/31/23 release Allergies Allergy/AdvReac Type Severity Reaction Status Date / Time phenytoin [From Dilantin] Allergy Mild Hives Verified 12/21/23 15:18 Sulfa (Sulfonamide Allergy Unknown Unknown Verified 12/21/23 15:18 Antibiotics) pregabalin [From Lyrica] AdvReac Unknown DIZZY, Verified 12/21/23 15:18 SEDATED Review of Systems Review of Systems: ROS unobtainable: Yes unobtainable due to mental status PMFSH Past Medical History Medical History Anemia, chronic disease Aortic stenosis Reportedly she has severe aortic stenosis and is followed by a rn corrections in [place]. Apparently she has been deemed not a surgical candidate at this time due to her other medical conditions. Brain aneurysm Chronic anticoagulation Chronic kidney disease, stage 4 (severe) Chronic obstructive pulmonary disease Colonization with multidrug-resistant bacteria Urine cultures over the years have grown ESBL E coli, multidrug resistant Proteus mirabilis, and fluoroquinolone resistant Pseudomonas aeruginosa. 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 History of hysterectomy Family History Family History Father Acute myocardial infarction Social History Social History Social History: Healthcare power of civil attorney: Arnulfo Acosta ([phone]). Code status: Modified code, no CPR. Smoking packs per day: 1 Smoking cigarettes per day: 20.0 Years smoked: 20 Smoking pack-years: 20.00 Smoking status: Unknown if ever smoked Second hand tobacco smoke exposure: No Alcohol intake: never Substance use: never Substance use type: does not use Do You Feel Safe in your Home?: Yes Lack of Transportation: No Lack of Food: Never True Current Housing: I Have Housing Concerned About Future Housing: No Difficulty Paying Gas/Electric Bills: No Difficulty Paying for Meds: No Currently Unemployed: No Education: Bachelor's Degree Difficulty w/ Childcare or Family Care: No Living arrangements: [facility] Additional living arrangements comments: [facility]. 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 Spiritual care concerns: No Exam Const: General: confusion Limitations: altered mental status HENMT: Head: normal to inspection Mouth: Yes lip normal and Yes dry mucous membranes Eyes: EOM: EOMs intact bilaterally Resp: Effort & Inspection: normal respiratory effort Auscultation: clear to auscultation bilaterally Cardio: Rate: tachycardic Rhythm: regular rhythm Heart sounds: Murmur heart sound present GI: GI Palp: Yes Soft to palpation, No Tenderness to palpation present (GI), No Guarding due to palpation present (GI) and No Rigid due to palpation Auscultation: normal bowel sounds Other: suprapubic catheter in place Skin: General skin exam: pallor Other: bilateral buttock red with excoriations, dermatitis Neuro: General: moves all extremities Extrem: General: no pedal edema Psych: Other: restless, moaning Course Reevaluation(s) Reevaluation #1: PAtient presents extremely restless and confused. Given 2 bolus IV, rocephin for UTI. I reviewed last urine culture was mixed uzair. Heart rate has improved . PAtient is calm now which may be why blood pressure has decreased. Date: 12/31/23 Time: 10:30 Consultations Consultation #1: I Discussed case with Dr. Schulte. He accepts patient to IMU due to soft BP. Recommends treating UTI with meropenem Date: 12/31/23 Time: 10:10 Vital Signs Vital signs: Vital Signs Pulse Rate 112 H 12/31/23 08:04 Respiratory Rate 17 12/31/23 08:04 Blood Pressure 160/120 H 12/31/23 08:04 Temperature 98.3 F 12/31/23 15:29 Pulse Rate 96 12/31/23 16:00 Respiratory Rate 20 12/31/23 15:29 Blood Pressure 89/41 L 12/31/23 15:29 Pulse Oximetry 97 12/31/23 15:29 Oxygen Delivery Room Air 12/31/23 08:38 MDM - Altered Mental Status Differential Diagnosis Differential diagnosis: Likely alcoholic intoxication, altered mental status, delirium, dementia, hypoglycemia, hyponatremia, subarachnoid hemorrhage, sepsis and other (UTI) Medical Records Attestation: I reviewed the patient's medical records. Lab Data Attestation: I reviewed the patient's lab results. 12/31/23 08:45 12/31/23 08:45 Labs: Lab Results 12/31/23 12/31/23 12/31/23 Range/Units 08:36 08:45 08:49 WBC 10.2 H (4.5-10.0) K/mm3 RBC 3.97 L (4.2-5.4) M/mm3 Hgb 9.3 L (12.0-15.0) g/dL Hct 31.6 L (37.0-47.0) % MCV 79.6 L (80-100) fl MCH 23.4 L (26-34) pg MCHC 29.4 L (32-36) g/dl RDW 19.0 H (11.5-14.5) % Plt Count 350 (150-375) k/mm3 MPV 8.8 (7.4-10.4) fl Immature Gran % (Auto) 0.4 (0-0.5) % Neut % (Auto) 81.8 H (45.5-73.1) % Lymph % (Auto) 9.0 L (18.3-44.2) % [place] % (Auto) 5.7 (2.6-8.5) % Eos % (Auto) 2.6 (0-4.4) % Baso % (Auto) 0.5 (0.2-1.2) % Lymph # (Auto) 0.92 (0.9-3.2) K/mm3 [place] # (Auto) 0.6 (0.1-0.6) K/mm3 Eos # (Auto) 0.3 (0-0.3) K/mm3 Baso # (Auto) 0.1 (0.0-0.1) K/mm3 Abs Immat Gran (auto) 0.04 H (0.00-0.031) K/mm3 Absolute Neuts (auto) 8.4 H (1.3-6.7) K/mm3 Absolute Nucleated RBC 0.000 (0.0-0.012) K/mm3 Nucleated RBC % 0.0 (0.0-0.2) % Platelet Estimate Adequate (Adequate) Hypochromasia 1+ Anisocytosis 2+ Schistocytes None seen PT 15.0 H (11.1-14.7) Seconds INR 1.2 APTT 34.1 (22.3-36.8) Seconds Sodium 144 (137-145) mmol/L Potassium 4.2 (3.4-5.0) mmol/L Chloride 105 (98-107) mmol/L Carbon Dioxide 25 (22-30) mmol/L Anion Gap 14 H (4-12) mmol/L BUN 62 H D (7-17) mg/dL Creatinine 3.10 H (0.7-1.0) mg/dL Estim Creat Clear Calc 13 ml/min Estimated GFR 14 L (59 - ) Glucose 143 H (65-110) mg/dL POC Capillary Glucose 120 H (65-105) mg/dl Lactic Acid 2.1 H (0.7-2.0) mmol/L Calcium 9.4 (8.4-10.2) mg/dL Total Bilirubin 0.4 (0.2-1.3) mg/dL AST 24 (14-36) U/L ALT 15 (6-35) U/L Alkaline Phosphatase 101 (38-126) U/L Ammonia < 9 L (9-30) umol/L Total Protein 9.0 H (6.3-8.2) g/dL Albumin 4.3 (3.5-5.1) g/dL Urine Color Yellow (Yellow) Urine Appearance Turbid H (Clear) Urine pH 6.0 (5.0-9.0) Ur Specific [place] 1.016 (1.001-1.035) Urine Protein 2+ H (Negative) mg/dL Urine Glucose (UA) 1+ H (Negative) mg/dL Urine Ketones Negative (Negative) mg/dL Ur Blood (Man) 2+ H (Negative) Urine Nitrate Positive H (Negative) Urine Bilirubin Negative (Negative) Urine Urobilinogen 0.2 (<2.0) mg/dL Add Ur Microanalysis Reviewed Leukocyte Esterase Rfl 3+ H (Negative) ARLETH/UL Urine RBC 21-50 H (0-2) /hpf Urine WBC >100 H (0-3) /hpf Ur Squamous Epith Cells None seen (Few) /hpf Urine Bacteria 4+ H /hpf Urine Casts 11-20 ABG Data ABG results: 12/31/23 09:07 Puncture Site Left radial ABG pH 7.355 ABG pCO2 38.1 ABG pO2 74.7 L ABG PO2/FiO2 Ratio 3.56 ABG HCO3 20.8 L ABG O2 Saturation 94.5 L ABG O2 Content 12.2 L ABG Base Excess -4.3 A-a Gradient 29.4 Oxyhemoglobin 93.2 Total Hemoglobin 9.2 L O2 Delivery Device Room air O2 Liters/Min Not Reportable FiO2 21 Imaging Data Radiologist's impression: ITS Impressions Chest X-Ray 12/31/23 09:51 IMPRESSION: 1. No acute cardiopulmonary disease. Head CT 12/31/23 10:50 IMPRESSION: 1. 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 ECG Data EKG #1: Attestation: I personally reviewed and interpreted this ECG as follows: ECG completion date: 12/31/23 ECG completion time: 08:33 EKG Interpretation: normal rate (99), sinus rhythm, no ST changes and NL axis Critical Care Time Critical Care Time Critical Care Time: Yes Total Critical Care Time: 35 Discharge Plan Discharge Clinical Impression: Altered mental status, Urinary tract infection Patient Disposition: Still a Patient Condition: Guarded Prognosis
[2023-12-31 08:52] LABS: Basophils Absolute Auto 0.1 K/mm3 (0.0-0.1); Basophils Percent Auto 0.5 % (0.2-1.2); Eosinophils Absolute Auto 0.3 K/mm3 (0-0.3); Eosinophils Percent Auto 2.6 % (0-4.4); Hematocrit 31.6 % (37.0-47.0); Hemoglobin 9.3 g/dL (12.0-15.0); Immature Granulocyte Absolute 0.04 K/mm3 (0.00-0.031); Immature Granulocyte Percent A 0.4 % (0-0.5); Lymphocytes Absolute Auto 0.92 K/mm3 (0.9-3.2); Mean Corpuscular HGB Conc 29.4 g/dl (32-36); Mean Corpuscular Hemoglobin 23.4 pg (26-34); Mean Corpuscular Volume 79.6 fl (80-100); Mean Platelet Volume 8.8 fl (7.4-10.4); Monocytes Absolute Auto 0.6 K/mm3 (0.1-0.6); Monocytes Percent Auto 5.7 % (2.6-8.5); Neutrophils Absolute Auto 8.4 K/mm3 (1.3-6.7); Neutrophils Percent Auto 81.8 % (45.5-73.1); Platelet Count Result 350 k/mm3 (150-375); Red Blood Count 3.97 M/mm3 (4.2-5.4); White Blood Count 10.2 K/mm3 (4.5-10.0)
[2023-12-31] MEDS: SODIUM CHLORIDE 0.9% IV 1,000 ML 999 ML IV CONT ×2 (08:53→10:13)
[2023-12-31 09:00] LABS: Glucose Point of Care 120 mg/dl (65-105)
[2023-12-31 09:01] LABS: Add Urine Microscopic? YES; Appearance Urine Turbid (Clear); Bacteria Urine 4+ /hpf; Bilirubin Urine Negative (Negative); Blood Urine 2+ (Negative); Color Urine Yellow (Yellow); Glucose Urine UA 1+ mg/dL (Negative); Ketones Urine Negative (Negative); Leukocyte Esterase Ur 3+ LEU/UL (Negative); Need Manual Microscopic Reviewed; Nitrate Urine Positive (Negative); Protein Urine 2+ mg/dL (Negative); RBC Urine 21-50 /hpf (0-2); Specific Grav Ur 1.016 (1.001-1.035); Squamous Epithelial Cell Urine None Seen /hpf (Few); Urobilinogen Urine 0.2 mg/dL (<2.0); WBC Urine >100 /hpf (0-3)
[2023-12-31 09:01] LABS: Alanine Aminotransferase 15 U/L (6-35); Albumin Level 4.3 g/dL (3.5-5.1); Alkaline Phosphatase 101 U/L (38-126); Anion Gap 14 mmol/L (4-12); Aspartate Amino Transferase 24 U/L (14-36); Bilirubin,Total 0.4 mg/dL (0.2-1.3); Blood Urea Nitrogen 62 mg/dL (7-17); Calcium 9.4 mg/dL (8.4-10.2); Carbon Dioxide 25 mmol/L (22-30); Chloride 105 mmol/L (98-107); Estimated CRCL calculation 13 ml/min; Estimated Glomerular Filt Rate 14; Glucose 143 mg/dL (65-110); Lactic Acid Reflex 2.1 mmol/L (0.7-2.0); Potassium 4.2 mmol/L (3.4-5.0); Sodium 144 mmol/L (137-145)
[2023-12-31 09:06] LABS: INR 1.2
[2023-12-31 09:07] LABS: Partial Thromboplastin Time 34.1 Seconds (22.3-36.8)
[2023-12-31 09:09] LABS: Alveolar/Arterial O2 Gradient 29.4 mmHg; Base Excess ABG -4.3 mEq/l (+/-2.0); Fractional Inspired Oxygen 21 %; HCO3 ABG 20.8 mEq/l (22.0-26.0); Oxygen Content ABG 12.2 %vol (16.0-22.0); Oxygen Saturation ABG 94.5 % (95.0-100.0); Oxyhemoglobin 93.2 % THb (90.0-100.0); PCO2 ABG 38.1 mmHg (35.0-45.0); PO2 ABG 74.7 mmHg (80.0-100.0); PO2 FiO2 Ratio Arterial Blood 3.56 %; Total Hemoglobin 9.2 g/dL (12.0-18.0); pH ABG 7.355 (7.350-7.450)
--- NOTE | 2023-12-31 09:09 | PCRCNOTE ---
ABG'S delayed.Pt is a hard stick ,therapist attempted 3 times to obtain.
[2023-12-31 09:12] LABS: Device ROOM AIR; Modified Allen's Test Pass; Site Drawn LEFT RADIAL
[2023-12-31 09:21] LABS: Ammonia < 9 umol/L (9-30)
[2023-12-31 09:22] LABS: Anisocytosis 2+; Hypochromasia 1+; Platelet Estimate Adequate (Adequate); Schistocytes None Seen
--- NOTE | 2023-12-31 10:38 | PC.NURSE ---
pt to CT scan via stretcher at this time
[2023-12-31] MEDS: MEROPENEM 1 GM/NS 100 ML 1 GM/100 ML BAG IVPB (10:49)
[2023-12-31 11:48] LABS: Reflex Lactic Acid Yes or No Add Lactic
[2023-12-31] MEDS: LACTATED RINGERS 1,000 ML 125 ML IV CONT ×2 (11:54→21:19)
--- NOTE | 2023-12-31 12:00 | ADMGEN ---
This patient, Dasia Hernandez, was admitted to IMU Room 203-01. Patient/family oriented to hospital policies and general routines including ID bracelet, bed and alarms, visiting hours, pain management, procedures, bathroom and other care routines, personal items, smoking policy, room service/diet, and visiting hours. Information on how to activate the Rapid Response Team has been discussed. Patient/Family are encouraged to report perceived risks to care and to ask questions if they do not understand what they are told or what they should do.
[2023-12-31 12:02] LABS: Glucose Point of Care 103 mg/dl (65-105)
--- NOTE | 2023-12-31 14:54 | PM.IMPN ---
Progress Note: A&P Assessment and Plan (1) AMS (altered mental status): Qualifiers: Altered mental status type: unspecified Qualified Code(s): R41.82 - Altered mental status, unspecified Code(s): R41.82 - Altered mental status, unspecified Status: Acute Assessment and Plan: -very likely due to UTI- turbid appearance, 2+ protein, 1+ glucose, positive nitrates, 3+ esterase, >100 uirne WBC, 4+ bacteria - Patient has history ESBL in the urine with multiple drug resistant on sensitivities. She has had had history of E coli-drug resistant back in July of this year. She also has history of Proteus mirabilis which was also drug resistant on sensitivities. - lactic 2.1 initially- downtrending to 1 - WBC 10.2, HR109, RR 15, temp 98.[address]-negative - recent hospitalization here with AMS and uti- when meropenem was started but then stopped due to negative UA culture. - ua was collected and sent- follow sensitivities -she was given a dose of Ceftriaxone and meropenem x 1 in ED- will continue meropenem 500 mg q12h continue IV fluids 125 ml/h - bladder scan if needed - bedside swallow eval per nursing and/or swallow eval per speech if indicated prior to feeding pt - neuro checks (2) Acute UTI: Code(s): N39.0 - Urinary tract infection, site not specified Status: Acute Assessment and Plan: see plan above (3) Acute on chronic renal failure: Qualifiers: Acute renal failure type: unspecified Chronic kidney disease stage: stage 4 (severe) Qualified Code(s): N17.9 - Acute kidney failure, unspecified; N18.4 - Chronic kidney disease, stage 4 (severe) Code(s): N17.9 - Acute kidney failure, unspecified; N18.9 - Chronic kidney disease, unspecified Status: Acute (4) Chronic anticoagulation: 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 Status: Chronic Assessment and Plan: eliquis 2.5 mg BID -unsure why she is on it- will hold for now (5) Colonization with multidrug-resistant bacteria: Code(s): Z22.322 - Carrier or suspected carrier of Methicillin resistant Staphylococcus aureus Status: Acute Assessment and Plan: on meropenem currently- wait for culture to narrow treatment (6) Congestive heart failure: Code(s): I50.9 - Heart failure, unspecified Status: Acute Assessment and Plan: Last echo reviewed from 08/22/2021 and showed a normal LV systolic function with an estimated EF of greater than 70%, moderate to severe aortic valve stenosis, abnormal diastolic function will hold po farxiga, coreg, lasix for now will consider consulting nephrology if kidney function not improved tomorrow Plan NPO for now until speech clears her Lovenox for DVT prophylaxis for now Time Spent With Patient Time with patient: Greater than 35 minutes Subjective Date/time seen: 12/31/23 14:54 Interval history: 83 y.o female with chronic indwelling 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 Of note, she was recently hospitalized with ams on 12/20- 12/23. She had MANISHA that improved with IV fluids as well as her mental status. Her hemoglobin dropped below 7 and her stool was Hemoccult positive prompting GI consultation however she declined colonoscopy. Based on chart review. she had ureteral stent: A ureteral stent is in expected position and she needs to follow-up with Urology as an outpatient for stent exchange at some point in the near future. - unclear if she followed up or not. I was not able to get much from her- she was opening her eyes, following some commands but inconsistent. Unable to provide much other information. Noted very poor oral hygiene, redness to neck- she kept itching it during the exam. IN ED - initial lactic elevated- 2.1 then improved to 1 - Urine- turbid, nitrate positive, 2+ blood, 2+ protein, 4+ bacteria. Cultures reflexed. WBC 10.2, hg/hct 9.3/31.6. BUN/CR 62/3.10 (she was as high as 3.30, baseline around 2.20-2.40)Anion gap 14. Head ct- Chronic encephalomalacia in right frontal lobe and anterior right temporal lobe. Chest x ray- No acute cardiopulmonary disease. Review of Systems Review of Systems: unable to obtain due to mental status Exam Narrative: resting with eyes closed, open eyes when spoken to, interacts somewhat but inconsistent. Const: General: comfortable HENMT: Mouth: Yes dry mucous membranes Neck: Other: erythema noted to neck from pt itching it Resp: Effort & Inspection: normal respiratory effort Auscultation: clear to auscultation bilaterally Objective Data Vital Signs Vital Signs: Vital Signs - 24 hr 12/31/23 08:04 12/31/23 08:26 12/31/23 08:28 Temperature 97.7 F Pulse Rate 112 H 125 H 112 H Respiratory Rate 17 17 Blood Pressure 160/120 H 115/68 Pulse Oximetry 100 Oxygen Delivery 12/31/23 08:38 12/31/23 09:54 12/31/23 10:00 Temperature Pulse Rate 86 Respiratory Rate 18 Blood Pressure 96/53 L Pulse Oximetry 100 Oxygen Delivery Room Air 12/31/23 11:09 12/31/23 11:52 12/31/23 13:02 Temperature 97.8 F Pulse Rate 85 109 H 87 Respiratory Rate 18 14 14 Blood Pressure 134/70 123/72 81/44 L Pulse Oximetry 100 97 97 Oxygen Delivery 12/31/23 11:09 12/31/23 12:01 12/31/23 12:51 Temperature Pulse Rate 85 108 H 86 Respiratory Rate 13 19 13 Blood Pressure 134/70 105/77 75/45 L Pulse Oximetry 100 99 97 Oxygen Delivery 12/31/23 12:56 12/31/23 13:28 12/31/23 14:01 Temperature 98.6 F Pulse Rate 90 109 H 104 H Respiratory Rate 14 15 Blood Pressure 76/37 L 114/64 84/59 L Pulse Oximetry 96 100 100 Oxygen Delivery 12/31/23 14:35 Temperature Pulse Rate Respiratory Rate Blood Pressure 110/50 L Pulse Oximetry Oxygen Delivery Intake/Output Intake/Output: Intake & Output 12/28/23 12/29/23 12/30/23 12/31/23 23:59 23:59 23:59 23:59 Intake Total 2150 Balance 2150 Meds/Results Medications: Active Medications Generic Name Dose Route Start Last Admin Trade Name Freq PRN Reason Stop Dose Admin Lactated Ringer's 1,000 mls @ 125 mls/hr 12/31/23 11:00 12/31/23 11:54 Lr - Lactated Ringers Iv IV CONT 125 mls/hr .Q8H REGINA Administration Meropenem 500 mg in 100 mls @ 200 mls/hr 12/31/23 21:00 IVPB Q12HR REGINA Ondansetron HCl 4 mg 12/31/23 10:56 Ondansetron Inj 4 Mg/2 Ml Vial IV PUSH Q4H PRN Nausea Radiology Results: ITS Impressions Chest X-Ray 12/31/23 09:51 IMPRESSION: 1. No acute cardiopulmonary disease. Head CT 12/31/23 10:50 IMPRESSION: 1. 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 Labs Labs: Laboratory Results - last 24 hr 12/31/23 12/31/23 12/31/23 08:36 08:45 08:49 WBC 10.2 H RBC 3.97 L Hgb 9.3 L Hct 31.6 L MCV 79.6 L MCH 23.4 L MCHC 29.4 L RDW 19.0 H Plt Count 350 MPV 8.8 Immature Gran % (Auto) 0.4 Neut % (Auto) 81.8 H Lymph % (Auto) 9.0 L [place] % (Auto) 5.7 Eos % (Auto) 2.6 Baso % (Auto) 0.5 Lymph # (Auto) 0.92 [place] # (Auto) 0.6 Eos # (Auto) 0.3 Baso # (Auto) 0.1 Abs Immat Gran (auto) 0.04 H Absolute Neuts (auto) 8.4 H Absolute Nucleated RBC 0.000 Nucleated RBC % 0.0 Platelet Estimate Adequate Hypochromasia 1+ Anisocytosis 2+ Schistocytes None seen PT 15.0 H INR 1.2 APTT 34.1 Puncture Site ABG pH ABG pCO2 ABG pO2 ABG PO2/FiO2 Ratio ABG HCO3 ABG O2 Saturation ABG O2 Content ABG Base Excess A-a Gradient Oxyhemoglobin Total Hemoglobin O2 Delivery Device O2 Liters/Min FiO2 Sodium 144 Potassium 4.2 Chloride 105 Carbon Dioxide 25 Anion Gap 14 H BUN 62 H D Creatinine 3.10 H Estim Creat Clear Calc 13 Estimated GFR 14 L Glucose 143 H POC Capillary Glucose 120 H Lactic Acid 2.1 H Calcium 9.4 Total Bilirubin 0.4 AST 24 ALT 15 Alkaline Phosphatase 101 Ammonia < 9 L Total Protein 9.0 H Albumin 4.3 Urine Color Yellow Urine Appearance Turbid H Urine pH 6.0 Ur Specific [place] 1.016 Urine Protein 2+ H Urine Glucose (UA) 1+ H Urine Ketones Negative Ur Blood (Man) 2+ H Urine Nitrate Positive H Urine Bilirubin Negative Urine Urobilinogen 0.2 Add Ur Microanalysis Reviewed Leukocyte Esterase Rfl 3+ H Urine RBC 21-50 H Urine WBC >100 H Ur Squamous Epith Cells None seen Urine Bacteria 4+ H Urine Casts 11-20 12/31/23 12/31/23 12/31/23 09:07 11:59 12:57 WBC RBC Hgb Hct MCV MCH MCHC RDW Plt Count MPV Immature Gran % (Auto) Neut % (Auto) Lymph % (Auto) [place] % (Auto) Eos % (Auto) Baso % (Auto) Lymph # (Auto) [place] # (Auto) Eos # (Auto) Baso # (Auto) Abs Immat Gran (auto) Absolute Neuts (auto) Absolute Nucleated RBC Nucleated RBC % Platelet Estimate Hypochromasia Anisocytosis Schistocytes PT INR APTT Puncture Site Left radial ABG pH 7.355 ABG pCO2 38.1 ABG pO2 74.7 L ABG PO2/FiO2 Ratio 3.56 ABG HCO3 20.8 L ABG O2 Saturation 94.5 L ABG O2 Content 12.2 L ABG Base Excess -4.3 A-a Gradient 29.4 Oxyhemoglobin 93.2 Total Hemoglobin 9.2 L O2 Delivery Device Room air O2 Liters/Min Not Reportable FiO2 21 Sodium Potassium Chloride Carbon Dioxide Anion Gap BUN Creatinine Estim Creat Clear Calc Estimated GFR Glucose POC Capillary Glucose 103 Lactic Acid 1.0 Calcium Total Bilirubin AST ALT Alkaline Phosphatase Ammonia Total Protein Albumin Urine Color Urine Appearance Urine pH Ur Specific [place] Urine Protein Urine Glucose (UA) Urine Ketones Ur Blood (Man) Urine Nitrate Urine Bilirubin Urine Urobilinogen Add Ur Microanalysis Leukocyte Esterase Rfl Urine RBC Urine WBC Ur Squamous Epith Cells Urine Bacteria Urine Casts Quality VTE Prophylaxis VTE prophylaxis: pharmacologic ordered
[2023-12-31 16:30] LABS: Glucose Point of Care 107 mg/dl (65-105)
[2023-12-31 20:58] LABS: Glucose Point of Care 101 mg/dl (65-105)
[2023-12-31] MEDS: MEROPENEM 500 MG/NS 100 ML 500 MG/100 ML BAG 200 MG IVPB (21:20)
[2024-01-01] VITALS (17 sets, daily range): BP systolic 91–112; BP diastolic 38–61; PULSE 79–99; RESP 18–24; TEMP 36.7–36.9; O2SAT 93–100
[2024-01-01] MEDS: LACTATED RINGERS 1,000 ML 125 ML IV CONT (04:06)
[2024-01-01 05:40] LABS: Basophils Absolute Auto 0.1 K/mm3 (0.0-0.1); Basophils Percent Auto 0.7 % (0.2-1.2); Eosinophils Absolute Auto 0.5 K/mm3 (0-0.3); Hematocrit 25.3 % (37.0-47.0); Hemoglobin 7.3 g/dL (12.0-15.0); Immature Granulocyte Absolute 0.03 K/mm3 (0.00-0.031); Immature Granulocyte Percent A 0.4 % (0-0.5); Lymphocytes Absolute Auto 0.75 K/mm3 (0.9-3.2); Lymphocytes Percent Auto 10.5 % (18.3-44.2); Mean Corpuscular HGB Conc 28.9 g/dl (32-36); Mean Corpuscular Hemoglobin 23.1 pg (26-34); Mean Corpuscular Volume 80.1 fl (80-100); Mean Platelet Volume 9.3 fl (7.4-10.4); Monocytes Absolute Auto 0.5 K/mm3 (0.1-0.6); Monocytes Percent Auto 7.2 % (2.6-8.5); Neutrophils Absolute Auto 5.3 K/mm3 (1.3-6.7); Neutrophils Percent Auto 74.2 % (45.5-73.1); Platelet Count Result 267 k/mm3 (150-375); Red Blood Count 3.16 M/mm3 (4.2-5.4); Red Cell Distribution Width 19.2 % (11.5-14.5); White Blood Count 7.1 K/mm3 (4.5-10.0)
[2024-01-01 05:50] LABS: Alanine Aminotransferase 11 U/L (6-35); Albumin Level 3.2 g/dL (3.5-5.1); Alkaline Phosphatase 74 U/L (38-126); Anion Gap 10 mmol/L (4-12); Aspartate Amino Transferase 19 U/L (14-36); Bilirubin,Total 0.3 mg/dL (0.2-1.3); Blood Urea Nitrogen 46 mg/dL (7-17); Calcium 8.4 mg/dL (8.4-10.2); Carbon Dioxide 22 mmol/L (22-30); Chloride 112 mmol/L (98-107); Estimated CRCL calculation 15 ml/min; Estimated Glomerular Filt Rate 18; Glucose 90 mg/dL (65-110); Potassium 3.1 mmol/L (3.4-5.0); Sodium 144 mmol/L (137-145)
[2024-01-01 06:07] LABS: Platelet Estimate Adequate (Adequate)
[2024-01-01 06:08] LABS: Anisocytosis 1+; Hypochromasia 1+; Schistocytes None Seen
--- NOTE | 2024-01-01 06:28 | WPDURCON ---
Assessment and Plan Assessment and plan (1) Acute UTI: Code(s): N39.0 - Urinary tract infection, site not specified Status: Acute (2) Hydronephrosis of right kidney: Code(s): N13.30 - Unspecified hydronephrosis Status: Chronic (3) Urinary retention: Code(s): R33.9 - Retention of urine, unspecified Status: Chronic (4) Right renal stone: Code(s): N20.0 - Calculus of kidney Status: Acute Assessment and Plan: Patient admitted for antibiotics pending urine and blood cultures Will plan cysto with right stent exchange and possible stone intervention for later this week (tentatively ) Urology Consult Note HPI Date Seen: 01/01/24 Requesting Physician: Andrey Schulte MD Primary Care Provider: Cm Beauchamp, Consult Narrative Narrative: Dasia Hernandez is a 83 year old female known to me with a chronic indwelling right ureteral stent is management for large stone burden and medically unfit for definitive intervention. She is overdue for stent change admitted now with an apparent urinary tract infection. In addition to the stent she has an indwelling suprapubic catheter. She is currently awake and denies any significant pain. Review of Systems Review of Systems: All systems reviewed & are unremarkable except as noted in HPI and below PMFSH Past Medical History Medical History Anemia, chronic disease Aortic stenosis Reportedly she has severe aortic stenosis and is followed by a vp care management in [place]. Apparently she has been deemed not a surgical candidate at this time due to her other medical conditions. Brain aneurysm Chronic anticoagulation Chronic kidney disease, stage 4 (severe) Chronic obstructive pulmonary disease Colonization with multidrug-resistant bacteria Urine cultures over the years have grown ESBL E coli, multidrug resistant Proteus mirabilis, and fluoroquinolone resistant Pseudomonas aeruginosa. 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 History of hysterectomy Family History Family History Father Acute myocardial infarction Social History Social History Social History: Healthcare power of assistant prosecuting attorney: Arnulfo Acosta ([phone]). Code status: Modified code, no CPR. Smoking packs per day: 1 Smoking cigarettes per day: 20.0 Years smoked: 20 Smoking pack-years: 20.00 Smoking status: Unknown if ever smoked Second hand tobacco smoke exposure: No Alcohol intake: never Substance use: never Substance use type: does not use Do You Feel Safe in your Home?: Yes Lack of Transportation: No Lack of Food: Never True Current Housing: I Have Housing Concerned About Future Housing: No Difficulty Paying Gas/Electric Bills: No Difficulty Paying for Meds: No Currently Unemployed: No Education: Bachelor's Degree Difficulty w/ Childcare or Family Care: No Living arrangements: assisted Additional living arrangements comments: [facility]. 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 Spiritual care concerns: No Meds Home Medications and Allergies Home Medications Medication Instructions Recorded Confirmed Type calcium 600 mg (as carbonate)-vit 1 tablet PO BID 09/02/19 12/31/23 History D3 20 mcg (800 unit) chewable tablet (Caltrate plus D) carvedilol 6.25 mg tablet (Coreg) 6.25 mg PO Q12HR 30 days #60 tabs 09/09/19 12/31/23 Rx ascorbic acid (vitamin C) 500 mg 500 mg PO DAILY 03/30/21 12/31/23 History tablet folic acid 1 mg tablet 1 mg PO DAILY 03/30/21 12/31/23 History amino acids-protein hydrolysate 17 1 ea PO BID 12/14/21 12/31/23 History gram-100 kcal/30 mL oral liquid (Pro-Stat AWC) multivitamin 1 tablet PO DAILY 12/14/21 12/31/23 History baclofen 10 mg tablet 10 mg PO TID PRN Muscle Spasm 03/27/23 12/31/23 History hydroxyzine HCl 25 mg tablet 25 mg PO TID 03/27/23 12/31/23 History apixaban 2.5 mg tablet (Eliquis) 2.5 mg PO Q12H 11/18/23 12/31/23 History duloxetine 60 mg capsule,delayed 60 mg PO DAILY 11/18/23 12/31/23 History release nystatin 100,000 unit/gram topical 1 applic topical BID 11/18/23 12/31/23 History powder dapagliflozin propanediol 5 mg 5 mg PO DAILY 12/21/23 12/31/23 History tablet (Farxiga) docusate sodium 100 mg capsule 100 mg PO DAILY 12/21/23 12/31/23 History furosemide 40 mg tablet 40 mg PO DAILY 12/21/23 12/31/23 History hydrocodone 5 mg-acetaminophen 325 1 tablet PO Q6H PRN Back Pain 12/21/23 12/31/23 History mg tablet lactulose 10 gram/15 mL oral 15 ml PO DAILY 12/21/23 12/31/23 History solution nystatin 100,000 unit/gram topical 1 applic topical Q12H 12/21/23 12/31/23 History powder (Klayesta) pantoprazole 40 mg tablet,delayed 40 mg PO HS 12/21/23 12/31/23 History release Allergies Allergy/AdvReac Type Severity Reaction Status Date / Time phenytoin [From Dilantin] Allergy Mild Hives Verified 12/21/23 15:18 Sulfa (Sulfonamide Allergy Unknown Unknown Verified 12/21/23 15:18 Antibiotics) pregabalin [From Lyrica] AdvReac Unknown DIZZY, Verified 12/21/23 15:18 SEDATED Vital Signs Vital Signs - 24 hr 12/31/23 08:04 12/31/23 08:26 12/31/23 08:28 Temperature 97.7 F Pulse Rate 112 H 125 H 112 H Respiratory Rate 17 17 Blood Pressure 160/120 H 115/68 Pulse Oximetry 100 Oxygen Delivery 12/31/23 08:38 12/31/23 09:54 12/31/23 10:00 Temperature Pulse Rate 86 Respiratory Rate 18 Blood Pressure 96/53 L Pulse Oximetry 100 Oxygen Delivery Room Air 12/31/23 11:09 12/31/23 11:52 12/31/23 13:02 Temperature 97.8 F Pulse Rate 85 109 H 87 Respiratory Rate 18 14 14 Blood Pressure 134/70 123/72 81/44 L Pulse Oximetry 100 97 97 Oxygen Delivery 12/31/23 11:09 12/31/23 12:01 12/31/23 12:51 Temperature Pulse Rate 85 108 H 86 Respiratory Rate 13 19 13 Blood Pressure 134/70 105/77 75/45 L Pulse Oximetry 100 99 97 Oxygen Delivery 12/31/23 12:56 12/31/23 13:28 12/31/23 14:01 Temperature 98.6 F Pulse Rate 90 109 H 104 H Respiratory Rate 14 15 Blood Pressure 76/37 L 114/64 84/59 L Pulse Oximetry 96 100 100 Oxygen Delivery 12/31/23 14:35 12/31/23 15:29 12/31/23 16:00 Temperature 98.3 F Pulse Rate 96 96 Respiratory Rate 20 Blood Pressure 110/50 L 89/41 L Pulse Oximetry 97 Oxygen Delivery 12/31/23 16:00 12/31/23 18:00 12/31/23 20:00 Temperature 98.2 F Pulse Rate 94 103 H Respiratory Rate 20 Blood Pressure 109/47 L Pulse Oximetry 95 Oxygen Delivery Room Air 12/31/23 20:00 12/31/23 20:00 12/31/23 22:12 Temperature Pulse Rate 103 H 102 H 92 Respiratory Rate 20 Blood Pressure Pulse Oximetry 95 Oxygen Delivery Room Air 12/31/23 23:30 01/01/24 00:38 01/01/24 00:00 Temperature 98.3 F Pulse Rate 92 96 95 Respiratory Rate 20 20 Blood Pressure 91/61 L Pulse Oximetry 95 100 Oxygen Delivery Room Air 01/01/24 02:07 01/01/24 03:53 01/01/24 03:55 Temperature 98.5 F Pulse Rate 99 99 99 Respiratory Rate 20 20 Blood Pressure 111/42 L Pulse Oximetry 100 98 Oxygen Delivery Room Air 01/01/24 04:00 01/01/24 05:52 Temperature Pulse Rate 93 95 Respiratory Rate Blood Pressure Pulse Oximetry Oxygen Delivery Exam Const: General: no acute distress Resp: Effort & Inspection: normal respiratory effort GI: Inspection: non-distended GI Palp: No abdominal tenderness and No Guarding due to palpation present (GI) Auscultation: normal bowel sounds Urinary Catheter: Urinary Catheter: patent and draining (suprapubic cathter) and urine clear Results Labs 01/01/24 04:36 01/01/24 04:36 Labs: Short CBC 12/31/23 01/01/24 Range/Units 08:45 04:36 WBC 10.2 H 7.1 (4.5-10.0) K/mm3 Hgb 9.3 L 7.3 L (12.0-15.0) g/dL Hct 31.6 L 25.3 L (37.0-47.0) % Plt Count 350 267 (150-375) k/mm3 BMP 12/31/23 01/01/24 08:45 04:36 Sodium 144 144 Potassium 4.2 3.1 L Chloride 105 112 H Carbon Dioxide 25 22 BUN 62 H D 46 H D Creatinine 3.10 H 2.60 H Glucose 143 H 90 Calcium 9.4 8.4 Liver Function 12/31/23 01/01/24 Range/Units 08:45 04:36 Total Bilirubin 0.4 0.3 (0.2-1.3) mg/dL AST 24 19 (14-36) U/L ALT 15 11 (6-35) U/L Alkaline Phosphatase 101 74 (38-126) U/L Albumin 4.3 3.2 L (3.5-5.1) g/dL Urine 12/31/23 Range/Units 08:36 Urine Color Yellow (Yellow) Urine Appearance Turbid H (Clear) Urine pH 6.0 (5.0-9.0) Ur Specific Reading 1.016 (1.001-1.035) Urine Protein 2+ H (Negative) mg/dL Urine Glucose (UA) 1+ H (Negative) mg/dL
--- NOTE | 2024-01-01 07:33 | P.PNIM_ITS ---
Progress Note: A&P Assessment and Plan (1) AMS (altered mental status): Code(s): R41.82 - Altered mental status, unspecified Status: Acute Assessment and Plan: -very likely due to UTI- turbid appearance, 2+ protein, 1+ glucose, positive nitrates, 3+ esterase, >100 uirne WBC, 4+ bacteria - Patient has history ESBL in the urine with multiple drug resistant on sensitivities. She has had had history of E coli-drug resistant back in July of this year. She also has history of Proteus mirabilis which was also drug resistant on sensitivities. - lactic 2.1 initially- downtrending to 1 - WBC 10.2, HR109, RR 15, temp 98.[address]-negative - recent hospitalization here with AMS and uti- when meropenem was started but then stopped due to negative UA culture. - ua was collected and sent- follow sensitivities -she was given a dose of Ceftriaxone and meropenem x 1 in ED- will continue meropenem 500 mg q12h continue IV fluids 125 ml/h - bladder scan if needed - bedside swallow eval per nursing and/or swallow eval per speech if indicated prior to feeding pt - neuro checks 12/31 - passed swallow test - ok to order diet - will review home meds today and restart what is appropriate - she is a lot more alert and oriented today - continue above regimen (2) Acute UTI: Code(s): N39.0 - Urinary tract infection, site not specified Status: Acute Assessment and Plan: see plan above (3) Acute on chronic renal failure: Qualifiers: Acute renal failure type: unspecified Chronic kidney disease stage: stage 4 (severe) Qualified Code(s): N17.9 - Acute kidney failure, unspecified; N18.4 - Chronic kidney disease, stage 4 (severe) Code(s): N17.9 - Acute kidney failure, unspecified; N18.9 - Chronic kidney disease, unspecified Status: Acute Assessment and Plan: -cr/bun improved today, 12/31- will decrease IV rate and stop after this bag to avoid fluid overload ad pt is drinking and eating well - continue to monitor labs daily (4) Chronic anticoagulation: 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 discussed with nursing facility 04/30/2022, apixaban restarted in oct for ?stroke which is what she had in 2019 prior to NH placement. unsure the reason for apixaban, but if need be, will need lower dose of apixaban due to her renal function. restart apixaban but at lower does 2.5 mg b.i.d.. - i feel that with her frequent UTI and frequent AMS puts her at risk for fall and/or bleed and it would be safer to avoid eliquis at this time (5) Colonization with multidrug-resistant bacteria: Code(s): Z22.322 - Carrier or suspected carrier of Methicillin resistant Staphylococcus aureus Status: Acute Assessment and Plan: on meropenem currently- wait for culture to narrow treatment (6) Congestive heart failure: Code(s): I50.9 - Heart failure, unspecified Status: Acute Assessment and Plan: * Last echo reviewed from 08/22/2021 and showed a normal LV systolic function with an estimated EF of greater than 70%, moderate to severe aortic valve stenosis, abnormal diastolic function * will hold po farxiga, coreg, lasix for now * will consider consulting nephrology if kidney function not improved tomorrow -holding some meds as BP lower- will re assess on a daily basis and restart regimen (7) Hydronephrosis of right kidney: Code(s): N13.30 - Unspecified hydronephrosis Status: Chronic Assessment and Plan: urology was consulted notes reviewed: chronic indwelling right ureteral stent is management for large stone burden and medically unfit for definitive intervention. She is overdue for stent dana teresa admitted now with an apparent urinary tract infection. In addition to the stent she has an indwelling suprapubic catheter. She is currently awake and denies any significant pain. Will plan cysto with right stent exchange and possible stone intervention for later this week (tentatively (8) Ureteral stent present: Code(s): Z96.0 - Presence of urogenital implants Status: Acute Assessment and Plan: see above Plan Lovenox for DVT prophylaxis for now Time Spent With Patient Time with patient: Greater than 35 minutes Subjective Date/time seen: 01/01/24 07:33 Interval history: 83 y.o female with chronic indwelling 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 Of note, she was recently hospitalized with ams on 12/20- 12/23. She had MANISHA that improved with IV fluids as well as her mental status. Her hemoglobin dropped below 7 and her stool was Hemoccult positive prompting GI consultation however she declined colonoscopy. Based on chart review. she had ureteral stent: A ureteral stent is in expected position and she needs to follow-up with Urology as an outpatient for stent exchange at some point in the near future. - unclear if she followed up or not. I was not able to get much from her- she was opening her eyes, following some commands but inconsistent. Unable to provide much other information. Noted very poor oral hygiene, redness to neck- she kept itching it during the exam. IN ED - initial lactic elevated- 2.1 then improved to 1 - Urine- turbid, nitrate positive, 2+ blood, 2+ protein, 4+ bacteria. Cultures reflexed. WBC 10.2, hg/hct 9.3/31.6. BUN/CR 62/3.10 (she was as high as 3.30, baseline around 2.20-2.40)Anion gap 14. Head ct- Chronic encephalomalacia in right frontal lobe and anterior right temporal lobe. Chest x ray- No acute cardiopulmonary disease. 12/31- pt is seen and examined this am. She is doing better this am- alert, slow to reply but was able to tell me her name and . Review of Systems Review of Systems: a lot more awake today, denies pain Exam Narrative: more alert today. able to follow commands and oriented to self and place. Const: General: comfortable HENMT: Mouth: Yes dry mucous membranes Neck: Other: erythema noted to neck from pt itching it Resp: Effort & Inspection: normal respiratory effort Auscultation: clear to auscultation bilaterally Urinary Catheter: Urinary Catheter: other (suprapubic cath) Objective Data Vital Signs Vital Signs: Vital Signs - 24 hr 12/31/23 08:04 12/31/23 08:26 12/31/23 08:28 Temperature 97.7 F Pulse Rate 112 H 125 H 112 H Respiratory Rate 17 17 Blood Pressure 160/120 H 115/68 Pulse Oximetry 100 Oxygen Delivery 12/31/23 08:38 12/31/23 09:54 12/31/23 10:00 Temperature Pulse Rate 86 Respiratory Rate 18 Blood Pressure 96/53 L Pulse Oximetry 100 Oxygen Delivery Room Air 12/31/23 11:09 12/31/23 11:52 12/31/23 13:02 Temperature 97.8 F Pulse Rate 85 109 H 87 Respiratory Rate 18 14 14 Blood Pressure 134/70 123/72 81/44 L Pulse Oximetry 100 97 97 Oxygen Delivery 12/31/23 11:09 12/31/23 12:01 12/31/23 12:51 Temperature Pulse Rate 85 108 H 86 Respiratory Rate 13 19 13 Blood Pressure 134/70 105/77 75/45 L Pulse Oximetry 100 99 97 Oxygen Delivery 12/31/23 12:56 12/31/23 13:28 12/31/23 14:01 Temperature 98.6 F Pulse Rate 90 109 H 104 H Respiratory Rate 14 15 Blood Pressure 76/37 L 114/64 84/59 L Pulse Oximetry 96 100 100 Oxygen Delivery 12/31/23 14:35 12/31/23 15:29 12/31/23 16:00 Temperature 98.3 F Pulse Rate 96 96 Respiratory Rate 20 Blood Pressure 110/50 L 89/41 L Pulse Oximetry 97 Oxygen Delivery 12/31/23 16:00 12/31/23 18:00 12/31/23 20:00 Temperature 98.2 F Pulse Rate 94 103 H Respiratory Rate 20 Blood Pressure 109/47 L Pulse Oximetry 95 Oxygen Delivery Room Air 12/31/23 20:00 12/31/23 20:00 12/31/23 22:12 Temperature Pulse Rate 103 H 102 H 92 Respiratory Rate 20 Blood Pressure Pulse Oximetry 95 Oxygen Delivery Room Air 12/31/23 23:30 01/01/24 00:38 01/01/24 00:00 Temperature 98.3 F Pulse Rate 92 96 95 Respiratory Rate 20 20 Blood Pressure 91/61 L Pulse Oximetry 95 100 Oxygen Delivery Room Air 01/01/24 02:07 01/01/24 03:53 01/01/24 03:55 Temperature 98.5 F Pulse Rate 99 99 99 Respiratory Rate 20 20 Blood Pressure 111/42 L Pulse Oximetry 100 98 Oxygen Delivery Room Air 01/01/24 04:00 01/01/24 05:52 Temperature Pulse Rate 93 95 Respiratory Rate Blood Pressure Pulse Oximetry Oxygen Delivery Intake/Output Intake/Output: Intake & Output 12/29/23 12/30/23 12/31/23 01/01/24 23:59 23:59 23:59 23:59 Intake Total 3390 947.9 Output Total 300 500 Balance 3090 447.9 Meds/Results Medications: Active Medications Generic Name Dose Route Start Last Admin Trade Name Freq PRN Reason Stop Dose Admin Enoxaparin Sodium 30 mg 01/01/24 09:00 Enoxaparin 30 Mg/0.3 Ml Syringe SUB-Q DAILY REGINA Lactated Ringer's 1,000 mls @ 125 mls/hr 12/31/23 11:00 01/01/24 04:06 Lr - Lactated Ringers Iv IV CONT 125 mls/hr .Q8H REGINA Administration Meropenem 500 mg in 100 mls @ 200 mls/hr 12/31/23 21:00 01/01/24 05:22 IVPB Infused Q12HR REGINA Infusion Ondansetron HCl 4 mg 12/31/23 10:56 Ondansetron Inj 4 Mg/2 Ml Vial IV PUSH Q4H PRN Nausea Radiology Results: ITS Impressions Chest X-Ray 12/31/23 09:51 IMPRESSION: 1. No acute cardiopulmonary disease. Head CT 12/31/23 10:50 IMPRESSION: 1. 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 Labs Labs: Laboratory Results - last 24 hr 12/31/23 12/31/23 12/31/23 08:36 08:45 08:49 WBC 10.2 H RBC 3.97 L Hgb 9.3 L Hct 31.6 L MCV 79.6 L MCH 23.4 L MCHC 29.4 L RDW 19.0 H Plt Count 350 MPV 8.8 Immature Gran % (Auto) 0.4 Neut % (Auto) 81.8 H Lymph % (Auto) 9.0 L [place] % (Auto) 5.7 Eos % (Auto) 2.6 Baso % (Auto) 0.5 Lymph # (Auto) 0.92 [place] # (Auto) 0.6 Eos # (Auto) 0.3 Baso # (Auto) 0.1 Abs Immat Gran (auto) 0.04 H Absolute Neuts (auto) 8.4 H Absolute Nucleated RBC 0.000 Nucleated RBC % 0.0 Platelet Estimate Adequate Hypochromasia 1+ Anisocytosis 2+ Schistocytes None seen PT 15.0 H INR 1.2 APTT 34.1 Puncture Site ABG pH ABG pCO2 ABG pO2 ABG PO2/FiO2 Ratio ABG HCO3 ABG O2 Saturation ABG O2 Content ABG Base Excess A-a Gradient Oxyhemoglobin Total Hemoglobin O2 Delivery Device O2 Liters/Min FiO2 Sodium 144 Potassium 4.2 Chloride 105 Carbon Dioxide 25 Anion Gap 14 H BUN 62 H D Creatinine 3.10 H Estim Creat Clear Calc 13 Estimated GFR 14 L Glucose 143 H POC Capillary Glucose 120 H Lactic Acid 2.1 H Calcium 9.4 Total Bilirubin 0.4 AST 24 ALT 15 Alkaline Phosphatase 101 Ammonia < 9 L Total Protein 9.0 H Albumin 4.3 Urine Color Yellow Urine Appearance Turbid H Urine pH 6.0 Ur Specific Axis 1.016 Urine Protein 2+ H Urine Glucose (UA) 1+ H Urine Ketones Negative Ur Blood (Man) 2+ H Urine Nitrate Positive H Urine Bilirubin Negative Urine Urobilinogen 0.2 Add Ur Microanalysis Reviewed Leukocyte Esterase Rfl 3+ H Urine RBC 21-50 H Urine WBC >100 H Ur Squamous Epith Cells None seen Urine Bacteria 4+ H Urine Casts 11-20 12/31/23 12/31/23 12/31/23 09:07 11:59 12:57 WBC RBC Hgb Hct MCV MCH MCHC RDW Plt Count MPV Immature Gran % (Auto) Neut % (Auto) Lymph % (Auto) [place] % (Auto) Eos % (Auto) Baso % (Auto) Lymph # (Auto) [place] # (Auto) Eos # (Auto) Baso # (Auto) Abs Immat Gran (auto) Absolute Neuts (auto) Absolute Nucleated RBC Nucleated RBC % Platelet Estimate Hypochromasia Anisocytosis Schistocytes PT INR APTT Puncture Site Left radial ABG pH 7.355 ABG pCO2 38.1 ABG pO2 74.7 L ABG PO2/FiO2 Ratio 3.56 ABG HCO3 20.8 L ABG O2 Saturation 94.5 L ABG O2 Content 12.2 L ABG Base Excess -4.3 A-a Gradient 29.4 Oxyhemoglobin 93.2 Total Hemoglobin 9.2 L O2 Delivery Device Room air O2 Liters/Min Not Reportable FiO2 21 Sodium Potassium Chloride Carbon Dioxide Anion Gap BUN Creatinine Estim Creat Clear Calc Estimated GFR Glucose POC Capillary Glucose 103 Lactic Acid 1.0 Calcium Total Bilirubin AST ALT Alkaline Phosphatase Ammonia Total Protein Albumin Urine Color Urine Appearance Urine pH Ur Specific Axis Urine Protein Urine Glucose (UA) Urine Ketones Ur Blood (Man) Urine Nitrate Urine Bilirubin Urine Urobilinogen Add Ur Microanalysis Leukocyte Esterase Rfl Urine RBC Urine WBC Ur Squamous Epith Cells Urine Bacteria Urine Casts 12/31/23 12/31/23 01/01/24 16:21 20:55 04:36 WBC 7.1 RBC 3.16 L Hgb 7.3 L Hct 25.3 L MCV 80.1 MCH 23.1 L MCHC 28.9 L RDW 19.2 H Plt Count 267 MPV 9.3 Immature Gran % (Auto) 0.4 Neut % (Auto) 74.2 H Lymph % (Auto) 10.5 L [place] % (Auto) 7.2 Eos % (Auto) 7.0 H Baso % (Auto) 0.7 Lymph # (Auto) 0.75 L [place] # (Auto) 0.5 Eos # (Auto) 0.5 H Baso # (Auto) 0.1 Abs Immat Gran (auto) 0.03 Absolute Neuts (auto) 5.3 Absolute Nucleated RBC 0.000 Nucleated RBC % 0.0 Platelet Estimate Adequate Hypochromasia 1+ Anisocytosis 1+ Schistocytes None seen PT INR APTT Puncture Site ABG pH ABG pCO2 ABG pO2 ABG PO2/FiO2 Ratio ABG HCO3 ABG O2 Saturation ABG O2 Content ABG Base Excess A-a Gradient Oxyhemoglobin Total Hemoglobin O2 Delivery Device O2 Liters/Min FiO2 Sodium 144 Potassium 3.1 L Chloride 112 H Carbon Dioxide 22 Anion Gap 10 BUN 46 H D Creatinine 2.60 H Estim Creat Clear Calc 15 Estimated GFR 18 L Glucose 90 POC Capillary Glucose 107 H 101 Lactic Acid Calcium 8.4 Total Bilirubin 0.3 AST 19 ALT 11 Alkaline Phosphatase 74 Ammonia Total Protein 7.0 Albumin 3.2 L Urine Color Urine Appearance Urine pH Ur Specific Axis Urine Protein Urine Glucose (UA) Urine Ketones Ur Blood (Man) Urine Nitrate Urine Bilirubin Urine Urobilinogen Add Ur Microanalysis Leukocyte Esterase Rfl Urine RBC Urine WBC Ur Squamous Epith Cells Urine Bacteria Urine Casts Quality VTE Prophylaxis VTE prophylaxis: pharmacologic ordered
[2024-01-01 07:47] LABS: Glucose Point of Care 98 mg/dl (65-105)
[2024-01-01] MEDS: MEROPENEM 500 MG/NS 100 ML 500 MG/100 ML BAG 200 MG IVPB ×2 (09:48→20:23)
[2024-01-01] MEDS: POTASSIUM CHLORIDE 20 MEQ PACKET (FOR LIQUID) 40 MEQ PO (09:49)
[2024-01-01] MEDS: DOCUSATE SODIUM 100 MG CAPSULE PO (09:49)
[2024-01-01] MEDS: ASCORBIC ACID 500 MG TABLET PO (09:49)
[2024-01-01] MEDS: hydrOXYzine HCL 25 MG TABLET PO ×3 (09:49→17:42)
[2024-01-01] MEDS: LACTULOSE 20 GM/30 ML UDC 15 GM PO (09:49)
[2024-01-01] MEDS: MULTIVITAMINS THERAPEUTIC TAB (*BKC) 1 TABLET PO (09:50)
[2024-01-01] MEDS: carvediloL 6.25 MG TABLET PO (09:50)
[2024-01-01] MEDS: FOLIC ACID 1 MG TABLET PO (09:50)
[2024-01-01] MEDS: ENOXAPARIN 30 MG/0.3 ML SYRINGE SUB-Q (09:50)
[2024-01-01] MEDS: DULoxetine HCL 60 MG CAPSULE.DR PO (09:50)
[2024-01-01 11:44] LABS: Glucose Point of Care 77 mg/dl (65-105)
[2024-01-01 16:37] LABS: Glucose Point of Care 113 mg/dl (65-105)
[2024-01-01 20:12] LABS: Glucose Point of Care 142 mg/dl (65-105)
[2024-01-01] MEDS: PANTOPRAZOLE 40 MG TABLET PO (20:24)
[2024-01-02 05:33] LABS: Hematocrit 26.5 % (37.0-47.0); Hemoglobin 7.5 g/dL (12.0-15.0); Mean Corpuscular HGB Conc 28.3 g/dl (32-36); Mean Corpuscular Hemoglobin 22.8 pg (26-34); Mean Corpuscular Volume 80.5 fl (80-100); Mean Platelet Volume 9.1 fl (7.4-10.4); Platelet Count Result 268 k/mm3 (150-375); Red Blood Count 3.29 M/mm3 (4.2-5.4); Red Cell Distribution Width 19.1 % (11.5-14.5)
[2024-01-02 05:47] LABS: Anion Gap 11 mmol/L (4-12); Blood Urea Nitrogen 36 mg/dL (7-17); Calcium 8.4 mg/dL (8.4-10.2); Carbon Dioxide 23 mmol/L (22-30); Chloride 109 mmol/L (98-107); Estimated CRCL calculation 16 ml/min; Estimated Glomerular Filt Rate 19; Glucose 95 mg/dL (65-110); Potassium 3.5 mmol/L (3.4-5.0); Sodium 143 mmol/L (137-145)
[2024-01-02 07:27] VITALS: BP 110/48; PULSE 84; RESP 20; TEMP 36.7; O2SAT 97
[2024-01-02 08:08] LABS: Glucose Point of Care 100 mg/dl (65-105)
[2024-01-02 08:28] VITALS: O2SAT 96
[2024-01-02] MEDS: ENOXAPARIN 30 MG/0.3 ML SYRINGE SUB-Q (10:03)
[2024-01-02] MEDS: MEROPENEM 500 MG/NS 100 ML 500 MG/100 ML BAG 200 MG IVPB ×2 (10:03→21:24)
[2024-01-02] MEDS: LACTULOSE 20 GM/30 ML UDC 15 GM PO (10:04)
[2024-01-02] MEDS: DOCUSATE SODIUM 100 MG CAPSULE PO (10:04)
[2024-01-02] MEDS: hydrOXYzine HCL 25 MG TABLET PO ×3 (10:04→16:00)
[2024-01-02] MEDS: ASCORBIC ACID 500 MG TABLET PO (10:04)
[2024-01-02] MEDS: MULTIVITAMINS THERAPEUTIC TAB (*BKC) 1 TABLET PO (10:04)
[2024-01-02] MEDS: carvediloL 6.25 MG TABLET PO ×2 (10:04→21:14)
[2024-01-02] MEDS: DULoxetine HCL 60 MG CAPSULE.DR PO (10:04)
[2024-01-02] MEDS: POTASSIUM CHLORIDE 20 MEQ PACKET (FOR LIQUID) 40 MEQ PO (10:05)
[2024-01-02] MEDS: FOLIC ACID 1 MG TABLET PO (10:05)
--- NOTE | 2024-01-02 10:46 | PM.IMPN ---
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 She has had had history of E coli-drug resistant back in July of this year. She also has history of Proteus mirabilis which was also drug resistant on sensitivities. - lactic 2.1 initially- downtrending to 1 - WBC 10.2, HR109, RR 15, temp 98.[address]-negative - recent hospitalization here with AMS and uti- when meropenem was started but then stopped due to negative UA culture. - ua was collected and sent- follow sensitivities -she was given a dose of Ceftriaxone and meropenem x 1 in ED- will continue meropenem 500 mg q12h plan to deescalate antibiotics after urinary stent replacement continue IV fluids 125 ml/h - bladder scan if needed - bedside swallow eval per nursing and/or swallow eval per speech if indicated prior to feeding pt - neuro checks 12/31 - passed swallow test - ok to order diet - will review home meds today and restart what is appropriate - she is a lot more alert and oriented today - continue above regimen (2) Acute UTI: Code(s): N39.0 - Urinary tract infection, site not specified Status: Acute Assessment and Plan: see plan above (3) Acute on chronic renal failure: Qualifiers: Acute renal failure type: unspecified Chronic kidney disease stage: stage 4 (severe) Qualified Code(s): N17.9 - Acute kidney failure, unspecified; N18.4 - Chronic kidney disease, stage 4 (severe) Code(s): N17.9 - Acute kidney failure, unspecified; N18.9 - Chronic kidney disease, unspecified Status: Acute Assessment and Plan: -cr/bun improved today, 12/31- IV for hydration - continue to monitor labs daily (4) Chronic anticoagulation: 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 discussed with nursing facility 04/30/2022, apixaban restarted in oct for ?stroke which is what she had in 2019 prior to NH placement. unsure the reason for apixaban, but if need be, will need lower dose of apixaban due to her renal function. restart apixaban but at lower does 2.5 mg b.i.d.. - i feel that with her frequent UTI and frequent AMS puts her at risk for fall and/or bleed and it would be safer to avoid eliquis at this time (5) Colonization with multidrug-resistant bacteria: Code(s): Z22.322 - Carrier or suspected carrier of Methicillin resistant Staphylococcus aureus Status: Acute Assessment and Plan: on meropenem currently- wait for culture to narrow treatment (6) Congestive heart failure: Code(s): I50.9 - Heart failure, unspecified Status: Acute Assessment and Plan: Last echo reviewed from 08/22/2021 and showed a normal LV systolic function with an estimated EF of greater than 70%, moderate to severe aortic valve stenosis, abnormal diastolic function will hold po farxiga, coreg, lasix for now will consider consulting nephrology if kidney function not improved tomorrow -holding some meds as BP lower- will re assess on a daily basis and restart regimen (7) Hydronephrosis of right kidney: Code(s): N13.30 - Unspecified hydronephrosis Status: Chronic Assessment and Plan: urology was consulted notes reviewed: chronic indwelling right ureteral stent is management for large stone burden and medically unfit for definitive intervention. She is overdue for stent change admitted now with an apparent urinary tract infection. In addition to the stent she has an indwelling suprapubic catheter. She is currently awake and denies any significant pain. Will plan cysto with right stent exchange and possible stone intervention for later this week, tentatively (8) Ureteral stent present: Code(s): Z96.0 - Presence of urogenital implants Status: Acute Assessment and Plan: see above Plan Lovenox for DVT prophylaxis for now Time Spent With Patient Time: Includes review of chart, time spent family, consulting teams and nursing. Vital signs were reviewed and they are stable. His medications will be reviewed and resumed as appropriate. Findings and treatment plan were discussed with the patient. Questions were solicited and answered to satisfaction. Care plan was discussed with nursing. Time with patient: Greater than 35 minutes Subjective Date/time seen: 01/02/24 10:46 Interval history: 83 y.o female with chronic indwelling suprapubic catheter for urinary retention and immobility, chronic colonization of multidrug resistant bacteria including ESBL Escherichia coli, Pseudomonas aeruginosa, and Proteus mirabilis, chronic indwelling ureteral stent, chronic kidney disease, anemia, diastolic congestive heart failure, hypertension, hypothyroidism, and several other comorbidities admitted from ED with ams, hallucinations. urology consulted plan cysto with right stent exchange and possible stone intervention for later this week (tentatively ) patient hypotensive given 1 L bolus, continues to be hypotensive maintenance IVF started will keep the patient inIMU . Review of Systems Review of Systems: 12 systems were reviewed and are negative except for as per HPI. Exam Narrative: more alert today. able to follow commands and oriented to self and place. per family confusion improving Const: General: comfortable HENMT: Mouth: Yes dry mucous membranes Neck: Other: erythema noted to neck from pt itching it Resp: Effort & Inspection: normal respiratory effort Auscultation: clear to auscultation bilaterally Urinary Catheter: Urinary Catheter: other (suprapubic cath) Neuro: Speech: normal speech Objective Data Vital Signs Vital Signs: Vital Signs - 24 hr 01/01/24 11:18 01/01/24 15:28 01/01/24 14:00 Temperature 98.3 F 98.4 F Pulse Rate 88 92 90 Respiratory Rate 24 H 20 Blood Pressure 112/46 L 101/38 L Pulse Oximetry 96 95 Oxygen Delivery 01/01/24 12:00 01/01/24 12:00 01/01/24 19:55 Temperature 98.3 F Pulse Rate 88 79 Respiratory Rate 18 Blood Pressure 99/39 L Pulse Oximetry 97 Oxygen Delivery Room Air 01/01/24 20:00 01/01/24 23:44 01/02/24 07:27 Temperature 98.4 F 98.0 F Pulse Rate 88 84 Respiratory Rate 18 20 Blood Pressure 111/58 L 110/48 L Pulse Oximetry 97 97 Oxygen Delivery Room Air 01/02/24 08:28 Temperature Pulse Rate Respiratory Rate Blood Pressure Pulse Oximetry 96 Oxygen Delivery Room Air Intake/Output Intake/Output: Intake & Output 12/30/23 12/31/23 01/01/24 01/02/24 23:59 23:59 23:59 23:59 Intake Total 3390 1987.9 840 Output Total 300 1250 950 Balance 3090 737.9 -110 Meds/Results Medications: Active Medications Generic Name Dose Route Start Last Admin Trade Name Freq PRN Reason Stop Dose Admin Ascorbic Acid 500 mg 01/01/24 09:00 01/02/24 10:04 Ascorbic Acid 500 Mg Tablet PO 500 mg DAILY REGINA Administration Carvedilol 6.25 mg 01/01/24 09:00 01/02/24 10:04 Carvedilol 6.25 Mg Tablet PO 6.25 mg Q12HR REGINA Administration Docusate Sodium 100 mg 01/01/24 09:00 01/02/24 10:04 Docusate Sodium 100 Mg Capsule PO 100 mg DAILY REGINA Administration Duloxetine HCl 60 mg 01/01/24 09:00 01/02/24 10:04 Duloxetine Hcl 60 Mg Capsule.Dr PO 60 mg DAILY REGINA Administration Enoxaparin Sodium 30 mg 01/01/24 09:00 01/02/24 10:03 Enoxaparin 30 Mg/0.3 Ml Syringe SUB-Q 30 mg DAILY REGINA Administration Folic Acid 1 mg 01/01/24 09:00 01/02/24 10:05 Folic Acid 1 Mg Tablet PO 1 mg DAILY REGINA Administration Hydroxyzine HCl 25 mg 01/01/24 09:00 01/02/24 10:04 Hydroxyzine Hcl 25 Mg Tablet PO 25 mg TID REGINA Administration Meropenem 500 mg in 100 mls @ 200 mls/hr 12/31/23 21:00 01/02/24 10:03 IVPB 200 mls/hr Q12HR REGINA Administration Lactulose 15 gm 01/01/24 09:00 01/02/24 10:04 Lactulose 20 Gm/30 Ml Udc PO 01/31/24 08:59 15 gm DAILY REGINA Administration Multivitamins Therapeutic 1 tablet 01/01/24 09:00 01/02/24 10:04 Multivitamins Therapeutic Tab (*Bkc) PO 1 tablet DAILY REGINA Administration Ondansetron HCl 4 mg 12/31/23 10:56 Ondansetron Inj 4 Mg/2 Ml Vial IV PUSH Q4H PRN Nausea Pantoprazole Sodium 40 mg 01/01/24 21:00 01/01/24 20:24 Pantoprazole 40 Mg Tablet PO 40 mg HS REGINA Administration Potassium Chloride 40 meq 01/01/24 09:00 01/02/24 10:05 Potassium Chloride 20 Meq Packet (For Liquid) PO 01/03/24 09:01 40 meq DAILY REGINA Administration Radiology Results: ITS Impressions Chest X-Ray 12/31/23 09:51 IMPRESSION: 1. No acute cardiopulmonary disease. Head CT 12/31/23 10:50 IMPRESSION: 1. 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 Labs Labs: Laboratory Results - last 24 hr 01/01/24 01/01/24 01/01/24 11:21 16:11 19:58 WBC RBC Hgb Hct MCV MCH MCHC RDW Plt Count MPV Sodium Potassium Chloride Carbon Dioxide Anion Gap BUN Creatinine Estim Creat Clear Calc Estimated GFR Glucose POC Capillary Glucose 77 113 H 142 H Calcium 01/02/24 01/02/24 04:38 07:26 WBC 7.0 RBC 3.29 L Hgb 7.5 L Hct 26.5 L MCV 80.5 MCH 22.8 L MCHC 28.3 L RDW 19.1 H Plt Count 268 MPV 9.1 Sodium 143 Potassium 3.5 Chloride 109 H Carbon Dioxide 23 Anion Gap 11 BUN 36 H D Creatinine 2.40 H Estim Creat Clear Calc 16 Estimated GFR 19 L Glucose 95 POC Capillary Glucose 100 Calcium 8.4 Quality VTE Prophylaxis VTE prophylaxis: pharmacologic ordered Hospitalist [facility] Advance Care Plan I have confirmed that the patient's Advanced Care Plan is present, code status is documented, or surrogate decision maker is listed in patient medical record.: Yes Medication Reconciliation I have utilized all available resources to obtain, update and review the patients current medications (includes all prescriptions, OTC, herbals, cannabis, and nutritional supplements).: Yes
[2024-01-02 11:29] LABS: Glucose Point of Care 96 mg/dl (65-105)
[2024-01-02 15:17] VITALS: BP 99/48; PULSE 94; RESP 18; TEMP 36.7; O2SAT 96
[2024-01-02] MEDS: SODIUM CHLORIDE 0.9% IV 1,000 ML 999 ML IV CONT (15:55)
[2024-01-02 16:18] LABS: Glucose Point of Care 119 mg/dl (65-105)
[2024-01-02] MEDS: SODIUM CHLORIDE 0.9% IV 1,000 ML 125 ML IV CONT (18:09)
[2024-01-02 18:30] VITALS: BP 102/46; PULSE 90; RESP 18; TEMP 36.7; O2SAT 97
--- NOTE | 2024-01-02 18:54 | PC.NURSE ---
Report given, patient transferred to [address] [place] [address], patients family updated.
[2024-01-02] MEDS: PANTOPRAZOLE 40 MG TABLET PO (21:12)
[2024-01-02 21:14] VITALS: PULSE 90
[2024-01-02 21:38] LABS: Glucose Point of Care 126 mg/dl (65-105)
[2024-01-02 21:53] VITALS: BP 102/47; PULSE 85; RESP 18; TEMP 36.4; O2SAT 97
[2024-01-03] VITALS (14 sets, daily range): BP systolic 107–134; BP diastolic 55–84; PULSE 81–108; RESP 10–20; TEMP 36.3–36.8; O2SAT 96–100
[2024-01-03] MEDS: SODIUM CHLORIDE 0.9% IV 1,000 ML 125 ML IV CONT ×2 (02:49→16:18)
--- NOTE | 2024-01-03 06:14 | WPDHPUPDATE1 ---
History and Physical Update Update Date/Time: 01/03/24 06:14 History and Physical has been reviewed, including an updated exam of the patient. There are NO changes in the patient's condition. Risks, benefits, and alternatives have been discussed and questions answered. Patient agrees to proceed with procedure.
[2024-01-03 08:28] LABS: Anion Gap 7 mmol/L (4-12); Blood Urea Nitrogen 29 mg/dL (7-17); Calcium 8.3 mg/dL (8.4-10.2); Carbon Dioxide 24 mmol/L (22-30); Chloride 109 mmol/L (98-107); Estimated CRCL calculation 18 ml/min; Estimated Glomerular Filt Rate 21; Glucose 102 mg/dL (65-110); Hematocrit 27.2 % (37.0-47.0); Hemoglobin 8.1 g/dL (12.0-15.0); Mean Corpuscular HGB Conc 29.8 g/dl (32-36); Mean Corpuscular Hemoglobin 23.6 pg (26-34); Mean Corpuscular Volume 79.3 fl (80-100); Platelet Count Result 260 k/mm3 (150-375); Potassium 3.9 mmol/L (3.4-5.0); Red Blood Count 3.43 M/mm3 (4.2-5.4); Sodium 140 mmol/L (137-145); White Blood Count 7.2 K/mm3 (4.5-10.0)
--- NOTE | 2024-01-03 09:49 | P.PNAN_ITS ---
Anes - Initial Pre Proc Eval Procedure: Operation Date: 01/03/24 12:45 Proposed Procedures p Cystoscopy.Right Stent Exchange - Richard Camargo MD Date/Time: 01/03/24 09:49 Surgeon: Andrey Schulte MD Pre Op Diagnosis: Acute encephalopathy,dehydration Patient Data Age: 83 Gender: F Height: 1.52 m Weight: 92.4 kg Last Vital Signs Temp 97.4 F L 01/03/24 05:20 Pulse 90 01/03/24 05:20 Resp 20 01/03/24 05:20 BP 121/55 L 01/03/24 05:20 Pulse Ox 97 01/03/24 05:20 O2 Del Method Room Air 01/02/24 08:28 Allergies Allergy/AdvReac Type Severity Reaction Status Date / Time Sulfa (Sulfonamide Allergy Severe rash Verified 01/02/24 15:22 Antibiotics) phenytoin [From Dilantin] Allergy Mild Hives Verified 12/21/23 15:18 pregabalin [From Lyrica] AdvReac Unknown DIZZY, Verified 12/21/23 15:18 SEDATED Home Medications Medication Instructions Recorded Confirmed Type calcium 600 mg (as carbonate)-vit 1 tablet PO BID 09/02/19 12/31/23 History D3 20 mcg (800 unit) chewable tablet (Caltrate plus D) carvedilol 6.25 mg tablet (Coreg) 6.25 mg PO Q12HR 30 days #60 tabs 09/09/19 12/31/23 Rx ascorbic acid (vitamin C) 500 mg 500 mg PO DAILY 03/30/21 12/31/23 History tablet folic acid 1 mg tablet 1 mg PO DAILY 03/30/21 12/31/23 History amino acids-protein hydrolysate 17 1 ea PO BID 12/14/21 12/31/23 History gram-100 kcal/30 mL oral liquid (Pro-Stat AWC) multivitamin 1 tablet PO DAILY 12/14/21 12/31/23 History baclofen 10 mg tablet 10 mg PO TID PRN Muscle Spasm 03/27/23 12/31/23 History hydroxyzine HCl 25 mg tablet 25 mg PO TID 03/27/23 12/31/23 History apixaban 2.5 mg tablet (Eliquis) 2.5 mg PO Q12H 11/18/23 12/31/23 History duloxetine 60 mg capsule,delayed 60 mg PO DAILY 11/18/23 12/31/23 History release nystatin 100,000 unit/gram topical 1 applic topical BID 11/18/23 12/31/23 History powder dapagliflozin propanediol 5 mg 5 mg PO DAILY 12/21/23 12/31/23 History tablet (Farxiga) docusate sodium 100 mg capsule 100 mg PO DAILY 12/21/23 12/31/23 History furosemide 40 mg tablet 40 mg PO DAILY 12/21/23 12/31/23 History hydrocodone 5 mg-acetaminophen 325 1 tablet PO Q6H PRN Back Pain 12/21/23 12/31/23 History mg tablet lactulose 10 gram/15 mL oral 15 ml PO DAILY 12/21/23 12/31/23 History solution nystatin 100,000 unit/gram topical 1 applic topical Q12H 12/21/23 12/31/23 History powder (Klayesta) pantoprazole 40 mg tablet,delayed 40 mg PO HS 12/21/23 12/31/23 History release Laboratory Tests 01/02/24 01/02/24 01/02/24 11:12 16:11 19:55 WBC RBC Hgb Hct MCV MCH MCHC RDW Plt Count MPV Sodium Potassium Chloride Carbon Dioxide Anion Gap BUN Creatinine Estim Creat Clear Calc Estimated GFR Glucose POC Capillary Glucose 96 mg/dl 119 H mg/dl 126 H mg/dl (65-105) (65-105) (65-105) Calcium 01/03/24 07:57 WBC 7.2 K/mm3 (4.5-10.0) RBC 3.43 L M/mm3 (4.2-5.4) Hgb 8.1 L g/dL (12.0-15.0) Hct 27.2 L % (37.0-47.0) MCV 79.3 L fl (80-100) MCH 23.6 L pg (26-34) MCHC 29.8 L g/dl (32-36) RDW 19.0 H % (11.5-14.5) Plt Count 260 k/mm3 (150-375) MPV 9.0 fl (7.4-10.4) Sodium 140 mmol/L (137-145) Potassium 3.9 mmol/L (3.4-5.0) Chloride 109 H mmol/L (98-107) Carbon Dioxide 24 mmol/L (22-30) Anion Gap 7 mmol/L (4-12) BUN 29 H mg/dL (7-17) Creatinine 2.20 H mg/dL (0.7-1.0) Estim Creat Clear Calc 18 ml/min Estimated GFR 21 L (59 - ) Glucose 102 mg/dL (65-110) POC Capillary Glucose Calcium 8.3 L mg/dL (8.4-10.2) Patient hx anesthesia problems: none Family hx anesthesia problems: none Results Review: All pre-operative results and documents have been reviewed as part of the pre- operative evaluation. 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 Apparently she has been deemed not a surgical candidate at this time due to her other medical conditions. Brain aneurysm Chronic anticoagulation Chronic kidney disease, stage 4 (severe) Chronic obstructive pulmonary disease Colonization with multidrug-resistant bacteria Urine cultures over the years have grown ESBL E coli, multidrug resistant Proteus mirabilis, and fluoroquinolone resistant Pseudomonas aeruginosa. 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 History of hysterectomy Family History Family History Father Acute myocardial infarction Social History Social History Social History: Healthcare power of speech and language specialist: Arnulfo Acosta ([phone]). Code status: Modified code, no CPR. Smoking packs per day: 1 Smoking cigarettes per day: 20.0 Years smoked: 20 Smoking pack-years: 20.00 Smoking status: Unknown if ever smoked Second hand tobacco smoke exposure: No Alcohol intake: never Substance use: never Substance use type: does not use Do You Feel Safe in your Home?: Yes Lack of Transportation: No Lack of Food: Never True Current Housing: I Have Housing Concerned About Future Housing: No Difficulty Paying Gas/Electric Bills: No Difficulty Paying for Meds: No Currently Unemployed: No Education: Bachelor's Degree Difficulty w/ Childcare or Family Care: No Living arrangements: halfway Additional living arrangements comments: [facility]. 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 Spiritual care concerns: No Comments SINUS RHYTHM WITH OCCASIONAL SUPRAVENTRICULAR PREMATURE COMPLEXES LOW QRS VOLTAGE IN PRECORDIAL LEADS [QRS DEFLECTION < 1.0 mV IN CHEST LEADS] Nonspecific ST-T waves Compared to ECG 12/21/2023 10:28:06 Low QRS voltage now present VR 99 Anes - Eval Final PreProcedure Day of Procedure 01/03/24 09:49 Patient weight: obese Heart: regular rate and rhythm Lungs: clear to auscultation Airway: Mallampati scale class III Neurological: confused Last oral intake: >/= 8 hours ASA classification: IV Emergent: no Anesthetic plan: proceed Anesthesia type and monitoring: general LMA Results Review: All pre-operative results and documents have been reviewed as part of the pre- operative evaluation. Informed Consent: The patient's anesthetic plan and its attendant risks and benefits were discussed with the patient/family/POA. Questions were solicited and answers provided to the satisfaction of the patient/family/POA.
[2024-01-03] MEDS: MEROPENEM 500 MG/NS 100 ML 500 MG/100 ML BAG 200 MG IVPB ×2 (10:00→21:48)
--- NOTE | 2024-01-03 10:00 | P.PNIM_ITS ---
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 She has had had history of E coli-drug resistant back in July of this year. She also has history of Proteus mirabilis which was also drug resistant on sensitivities. - lactic 2.1 initially- downtrending to 1 - WBC 10.2, HR109, RR 15, temp 98.[address]-negative - recent hospitalization here with AMS and uti- when meropenem was started but then stopped due to negative UA culture. - ua was collected and sent- follow sensitivities -she was given a dose of Ceftriaxone and meropenem x 1 in ED- will continue meropenem 500 mg q12h plan to deescalate antibiotics after urinary stent rep lacement continue IV fluids 125 ml/h - bladder scan if needed - bedside swallow eval per nursing and/or swallow eval per speech if indicated prior to feeding pt - neuro checks 12/31 - passed swallow test - ok to order diet - will review home meds today and restart what is appropriate - she is a lot more alert and oriented today - continue above regimen (2) Acute UTI: Code(s): N39.0 - Urinary tract infection, site not specified Status: Acute Assessment and Plan: see plan above (3) Acute on chronic renal failure: Qualifiers: Acute renal failure type: unspecified Chronic kidney disease stage: stage 4 (severe) Qualified Code(s): N17.9 - Acute kidney failure, unspecified; N18.4 - Chronic kidney disease, stage 4 (severe) Code(s): N17.9 - Acute kidney failure, unspecified; N18.9 - Chronic kidney disease, unspecified Status: Acute Assessment and Plan: -cr/bun improved today, 12/31- IV for hydration - continue to monitor labs daily (4) Chronic anticoagulation: Code(s): Z79.01 - superintendent terminal (current) use of anticoagulants Status: Chronic Assessment and Plan: eliquis 2.5 mg BID -unsure why she is on it- will hold for now - from the chart review, on 05/[address] Benton: # DVT prophylaxis on apixaban. discussed with nursing facility 04/30/2022, apixaban restarted in oct for ?stroke which is what she had in 2019 prior to NH placement. unsure the reason for apixaban, but if need be, will need lower dose of apixaban due to her renal function. restart apixaban but at lower does 2.5 mg b.i.d.. - i feel that with her frequent UTI and frequent AMS puts her at risk for fall and/or bleed and it would be safer to avoid eliquis at this time (5) Colonization with multidrug-resistant bacteria: Code(s): Z22.322 - Carrier or suspected carrier of Methicillin resistant Staphylococcus aureus Status: Acute Assessment and Plan: on meropenem currently- wait for culture to narrow treatment (6) Congestive heart failure: Code(s): I50.9 - Heart failure, unspecified Status: Acute Assessment and Plan: * Last echo reviewed from 08/22/2021 and showed a normal LV systolic function with an estimated EF of greater than 70%, moderate to severe aortic valve stenosis, abnormal diastolic function * will hold po farxiga, coreg, lasix for now * will consider consulting nephrology if kidney function not improved tomorrow -holding some meds as BP lower- will re assess on a daily basis and restart regimen (7) Hydronephrosis of right kidney: Code(s): N13.30 - Unspecified hydronephrosis Status: Chronic Assessment and Plan: urology was consulted notes reviewed: chronic indwelling right ureteral stent is management for large stone burden and medically unfit for definitive intervention. She is overdue for stent change admitted now with an apparent urinary tract infection. In addition to the stent she has an indwelling suprapubic catheter. She is currently awake and denies any significant pain. 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 urology consulted plan cysto with right stent exchange and possible stone intervention today. patient hypotensive given 1 L bolus, continues to be hypotensive maintenance IVF started will keep the patient in IMU . Review of Systems Review of Systems: 12 systems were reviewed and are negative except for as per HPI. Exam Narrative: more alert today. able to follow commands and oriented to self and place. per family confusion improving Const: General: comfortable HENMT: Mouth: Yes dry mucous membranes Neck: Other: erythema noted to neck from pt itching it Resp: Effort & Inspection: normal respiratory effort Auscultation: clear to auscultation bilaterally Urinary Catheter: Urinary Catheter: other (suprapubic cath) Neuro: Speech: normal speech Objective Data Vital Signs Vital Signs: Vital Signs - 24 hr 01/02/24 15:17 01/02/24 18:30 01/02/24 21:14 Temperature 98.0 F 98.0 F Pulse Rate 94 90 90 Respiratory Rate 18 18 Blood Pressure 99/48 L 102/46 L Pulse Oximetry 96 97 01/02/24 21:53 01/03/24 05:20 01/03/24 09:57 Temperature 97.6 F 97.4 F L 97.8 F Pulse Rate 85 90 90 Respiratory Rate 18 20 16 Blood Pressure 102/47 L 121/55 L 119/56 L Pulse Oximetry 97 97 99 Intake/Output Intake/Output: Intake & Output 12/31/23 01/01/24 01/02/24 01/03/24 23:59 23:59 23:59 23:59 Intake Total 3390 1987.9 1540 1000 Output Total 300 1250 1575 350 Balance 3090 737.9 -35 650 Meds/Results Medications: Active Medications Generic Name Dose Route Start Last Admin Trade Name Freq PRN Reason Stop Dose Admin Ascorbic Acid 500 mg 01/01/24 09:00 01/02/24 10:04 Ascorbic Acid 500 Mg Tablet PO 500 mg DAILY REGINA Administration Carvedilol 6.25 mg 01/01/24 09:00 01/02/24 21:14 Carvedilol 6.25 Mg Tablet PO 6.25 mg Q12HR REGINA Administration Docusate Sodium 100 mg 01/01/24 09:00 01/02/24 10:04 Docusate Sodium 100 Mg Capsule PO 100 mg DAILY REGINA Administration Duloxetine HCl 60 mg 01/01/24 09:00 01/02/24 10:04 Duloxetine Hcl 60 Mg Capsule.Dr PO 60 mg DAILY REGINA Administration Enoxaparin Sodium 30 mg 01/01/24 09:00 01/02/24 10:03 Enoxaparin 30 Mg/0.3 Ml Syringe SUB-Q 30 mg DAILY REGINA Administration Fentanyl Citrate 25 mcg 01/03/24 09:54 Fentanyl Citrate Inj (*Crx) 100 Mcg/2 Ml Vial IV PUSH Q2M PRN Pain Folic Acid 1 mg 01/01/24 09:00 01/02/24 10:05 Folic Acid 1 Mg Tablet PO 1 mg DAILY REGINA Administration Hydroxyzine HCl 25 mg 01/01/24 09:00 01/02/24 16:00 Hydroxyzine Hcl 25 Mg Tablet PO 25 mg TID REGINA Administration Meropenem 500 mg in 100 mls @ 200 mls/hr 12/31/23 21:00 01/02/24 21:24 IVPB 200 mls/hr Q12HR REGINA Administration Sodium Chloride 1,000 mls @ 125 mls/hr 01/02/24 18:05 01/03/24 02:49 Normal Saline Iv IV CONT 125 mls/hr .Q8H REGINA Administration Lactated Ringer's 1,000 mls @ 30 mls/hr 01/02/24 18:50 Lr - Lactated Ringers Iv IV CONT .Q24H REGINA Lactated Ringer's 1,000 mls @ 30 mls/hr 01/03/24 09:55 Lr - Lactated Ringers Iv IV CONT .Q24H REGINA Lactulose 15 gm 01/01/24 09:00 01/02/24 10:04 Lactulose 20 Gm/30 Ml Udc PO 01/31/24 08:59 15 gm DAILY REGINA Administration Multivitamins Therapeutic 1 tablet 01/01/24 09:00 01/02/24 10:04 Multivitamins Therapeutic Tab (*Bkc) PO 1 tablet DAILY REGINA Administration Ondansetron HCl 4 mg 12/31/23 10:56 Ondansetron Inj 4 Mg/2 Ml Vial IV PUSH Q4H PRN Nausea Ondansetron HCl 4 mg 01/03/24 09:54 Ondansetron Inj 4 Mg/2 Ml Vial IV PUSH ONCE PRN Nausea Pantoprazole Sodium 40 mg 01/01/24 21:00 01/02/24 21:12 Pantoprazole 40 Mg Tablet PO 40 mg HS [facility] Administration Polyethylene Glycol 17 gm 01/03/24 09:00 Polyethylene Glycol 3350 17 Gm Powd.Pack PO QAM [facility] Radiology Results: ITS Impressions Chest X-Ray 12/31/23 09:51 IMPRESSION: 1. No acute cardiopulmonary disease. Head CT 12/31/23 10:50 IMPRESSION: 1. 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 Labs Labs: Laboratory Results - last 24 hr 01/02/24 01/02/24 01/02/24 11:12 16:11 19:55 WBC RBC Hgb Hct MCV MCH MCHC RDW Plt Count MPV Sodium Potassium Chloride Carbon Dioxide Anion Gap BUN Creatinine Estim Creat Clear Calc Estimated GFR Glucose POC Capillary Glucose 96 119 H 126 H Calcium 01/03/24 07:57 WBC 7.2 RBC 3.43 L Hgb 8.1 L Hct 27.2 L MCV 79.3 L MCH 23.6 L MCHC 29.8 L RDW 19.0 H Plt Count 260 MPV 9.0 Sodium 140 Potassium 3.9 Chloride 109 H Carbon Dioxide 24 Anion Gap 7 BUN 29 H Creatinine 2.20 H Estim Creat Clear Calc 18 Estimated GFR 21 L Glucose 102 POC Capillary Glucose Calcium 8.3 L Quality VTE Prophylaxis VTE prophylaxis: pharmacologic ordered
[2024-01-03] MEDS: LACTULOSE 20 GM/30 ML UDC 15 GM PO (10:03)
[2024-01-03] MEDS: MULTIVITAMINS THERAPEUTIC TAB (*BKC) 1 TABLET PO (10:03)
[2024-01-03] MEDS: DULoxetine HCL 60 MG CAPSULE.DR PO (10:04)
[2024-01-03] MEDS: DOCUSATE SODIUM 100 MG CAPSULE PO (10:04)
[2024-01-03] MEDS: carvediloL 6.25 MG TABLET PO ×2 (10:04→21:47)
[2024-01-03] MEDS: FOLIC ACID 1 MG TABLET PO (10:05)
[2024-01-03] MEDS: polyethylene glycoL 3350 17 GM POWD.PACK PO (10:05)
[2024-01-03] MEDS: hydrOXYzine HCL 25 MG TABLET PO ×2 (10:05→16:16)
[2024-01-03] MEDS: POTASSIUM CHLORIDE 20 MEQ PACKET (FOR LIQUID) 40 MEQ PO (10:05)
[2024-01-03] MEDS: ASCORBIC ACID 500 MG TABLET PO (10:06)
[2024-01-03 10:20] LABS: Glucose Point of Care 114 mg/dl (65-105)
[2024-01-03] MEDS: LACTATED RINGERS 1,000 ML 30 ML IV CONT (11:20)
[2024-01-03 12:02] LABS: Glucose Point of Care 82 mg/dl (65-105)
--- NOTE | 2024-01-03 12:06 | PCPTNOTE ---
Pt is dependent at baseline using [place] lift/wheelchair and has been in this condition for some time. Message left with ordering provider regarding pt remaining at baseline.
--- NOTE | 2024-01-03 14:16 | W.PM.PROC2 ---
Procedure Note - Detailed Date of Procedure 01/03/24 Pre-op Diagnosis Acute encephalopathy,dehydration, right renal calculi Post-op Diagnosis Same Procedure Performed Cystoscopy, right ureteral stent exchange, suprapubic catheter exchange Surgeon Richard Camargo MD Anesthesia General Description of Procedure patient is brought to the operative suite where she was prepped draped in routine sterile fashion in the supine position. 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 I opted to do this through her suprapubic tract. a suprapubic catheter was removed and a 16 F flexible cystoscope was used to identify and grasp the indwelling stent. I was unable to place a wire through the stent but the, using active office for an 8 F 10 F dilator and a safety wire I was able to remove and exchange the 4.8 F right double-J stent. Appropriate positioning was confirmed by fluoroscopy and cystoscopy. A 20 F suprapubic catheter was replaced. I will plan to exchange the stent again in 6 months. Urine Output 425 Drains Yes Packing No
[2024-01-03 15:17] LABS: Glucose Point of Care 99 mg/dl (65-105)
[2024-01-03 16:55] LABS: Glucose Point of Care 98 mg/dl (65-105)
[2024-01-03 19:26] LABS: Glucose Point of Care 119 mg/dl (65-105)
[2024-01-03] MEDS: PANTOPRAZOLE 40 MG TABLET PO (21:47)
[2024-01-04] MEDS: SODIUM CHLORIDE 0.9% IV 1,000 ML 125 ML IV CONT ×2 (01:57→06:22)
[2024-01-04 06:00] VITALS: BP 127/59; PULSE 94; RESP 22; TEMP 36.4; O2SAT 97
[2024-01-04 06:39] LABS: Hematocrit 26.9 % (37.0-47.0); Hemoglobin 7.8 g/dL (12.0-15.0); Mean Corpuscular Hemoglobin 23.1 pg (26-34); Mean Corpuscular Volume 79.6 fl (80-100); Mean Platelet Volume 8.3 fl (7.4-10.4); Platelet Count Result 221 k/mm3 (150-375); Red Blood Count 3.38 M/mm3 (4.2-5.4); Red Cell Distribution Width 18.8 % (11.5-14.5); White Blood Count 6.5 K/mm3 (4.5-10.0)
[2024-01-04 06:50] LABS: Anion Gap 7 mmol/L (4-12); Blood Urea Nitrogen 23 mg/dL (7-17); Calcium 8.3 mg/dL (8.4-10.2); Carbon Dioxide 23 mmol/L (22-30); Chloride 107 mmol/L (98-107); Estimated CRCL calculation 20 ml/min; Estimated Glomerular Filt Rate 24; Glucose 97 mg/dL (65-110); Potassium 3.8 mmol/L (3.4-5.0); Sodium 137 mmol/L (137-145)
--- NOTE | 2024-01-04 07:03 | P.PNUR_ITS ---
Progress Note: A&P Assessment and Plan (1) Hydronephrosis of right kidney: Code(s): N13.30 - Unspecified hydronephrosis Status: Chronic Assessment and Plan: * Tolerated right stent exchange yesterday well. * Arrangements made for next stent exchange in 6 months Subjective Subjective Date/Time Seen: 01/04/24 07:03 Interval history: Comfortable, tolerated stent exchange well Review of Systems Review of Systems: All systems reviewed & are unremarkable except as noted in HPI and below Exam Const: General: no acute distress Resp: Effort & Inspection: normal respiratory effort GI: Inspection: non-distended GI Palp: No abdominal tenderness and No Guarding due to palpation present (GI) Auscultation: normal bowel sounds Objective Data Vital Signs Vital Signs: Vital Signs - 24 hr 01/03/24 09:57 01/03/24 10:04 01/03/24 10:04 Temperature 97.8 F Pulse Rate 90 88 Respiratory Rate 16 Blood Pressure 119/56 L Pulse Oximetry 99 Oxygen Delivery Room Air Oxygen Flow Rate 01/03/24 11:20 01/03/24 14:21 01/03/24 14:35 Temperature 98.3 F 97.5 F L Pulse Rate 89 85 84 Respiratory Rate 18 10 L 16 Blood Pressure 122/59 L 132/67 130/79 Pulse Oximetry 98 100 100 Oxygen Delivery Room Air Simple Face Mask Room Air Oxygen Flow Rate 8 01/03/24 14:50 01/03/24 15:05 01/03/24 15:20 Temperature Pulse Rate 84 81 82 Respiratory Rate 16 16 16 Blood Pressure 119/74 109/84 132/59 L Pulse Oximetry 100 98 98 Oxygen Delivery Room Air Room Air Room Air Oxygen Flow Rate 01/03/24 15:30 01/03/24 15:45 01/03/24 14:00 Temperature 97.3 F L Pulse Rate 82 86 81 Respiratory Rate 16 17 18 Blood Pressure 134/66 131/65 119/57 L Pulse Oximetry 98 96 97 Oxygen Delivery Room Air Room Air Oxygen Flow Rate 01/03/24 21:28 01/03/24 21:47 01/03/24 20:00 Temperature 97.9 F Pulse Rate 88 108 H Respiratory Rate 16 Blood Pressure 107/84 Pulse Oximetry 97 Oxygen Delivery Room Air Oxygen Flow Rate 01/04/24 06:00 Temperature 97.6 F Pulse Rate 94 Respiratory Rate 22 H Blood Pressure 127/59 L Pulse Oximetry 97 Oxygen Delivery Oxygen Flow Rate Intake/Output Intake/Output: Intake & Output 01/01/24 01/02/24 01/03/24 01/04/24 23:59 23:59 23:59 23:59 Intake Total 1987.9 1640 2840 1912.1 Output Total 1250 1575 2530 1200 Balance 737.9 65 310 712.1 Meds/Results Medications: Active Medications Generic Name Dose Route Start Last Admin Trade Name Freq PRN Reason Stop Dose Admin Ascorbic Acid 500 mg 01/01/24 09:00 01/03/24 10:06 Ascorbic Acid 500 Mg Tablet PO 500 mg DAILY REGINA Administration Carvedilol 6.25 mg 01/01/24 09:00 01/03/24 21:47 Carvedilol 6.25 Mg Tablet PO 6.25 mg Q12HR REGINA Administration Docusate Sodium 100 mg 01/01/24 09:00 01/03/24 10:04 Docusate Sodium 100 Mg Capsule PO 100 mg DAILY REGINA Administration Duloxetine HCl 60 mg 01/01/24 09:00 01/03/24 10:04 Duloxetine Hcl 60 Mg Capsule.Dr PO 60 mg DAILY REGINA Administration Enoxaparin Sodium 30 mg 01/01/24 09:00 01/02/24 10:03 Enoxaparin 30 Mg/0.3 Ml Syringe SUB-Q 30 mg DAILY REGINA Administration Fentanyl Citrate 25 mcg 01/03/24 09:54 Fentanyl Citrate Inj (*Crx) 100 Mcg/2 Ml Vial IV PUSH Q2M PRN Pain Folic Acid 1 mg 01/01/24 09:00 01/03/24 10:05 Folic Acid 1 Mg Tablet PO 1 mg DAILY REGINA Administration Hydroxyzine HCl 25 mg 01/01/24 09:00 01/03/24 17:24 Hydroxyzine Hcl 25 Mg Tablet PO Not Given TID REGINA Meropenem 500 mg in 100 mls @ 200 mls/hr 12/31/23 21:00 01/03/24 21:48 IVPB 200 mls/hr Q12HR REGINA Administration Sodium Chloride 1,000 mls @ 125 mls/hr 01/02/24 18:05 01/04/24 06:22 Normal Saline Iv IV CONT 125 mls/hr .Q8H REGINA Administration Lactated Ringer's 1,000 mls @ 30 mls/hr 01/02/24 18:50 01/03/24 15:52 Lr - Lactated Ringers Iv IV CONT Infused .Q24H REGINA Infusion Lactated Ringer's 1,000 mls @ 30 mls/hr 01/03/24 09:55 Lr - Lactated Ringers Iv IV CONT .Q24H REGINA Lactulose 15 gm 01/01/24 09:00 01/03/24 10:03 Lactulose 20 Gm/30 Ml Udc PO 01/31/24 08:59 15 gm DAILY REGINA Administration Multivitamins Therapeutic 1 tablet 01/01/24 09:00 01/03/24 10:03 Multivitamins Therapeutic Tab (*Bkc) PO 1 tablet DAILY REGINA Administration Ondansetron HCl 4 mg 12/31/23 10:56 Ondansetron Inj 4 Mg/2 Ml Vial IV PUSH Q4H PRN Nausea Ondansetron HCl 4 mg 01/03/24 09:54 Ondansetron Inj 4 Mg/2 Ml Vial IV PUSH ONCE PRN Nausea Pantoprazole Sodium 40 mg 01/01/24 21:00 01/03/24 21:47 Pantoprazole 40 Mg Tablet PO 40 mg HS REGINA Administration Polyethylene Glycol 17 gm 01/03/24 09:00 01/03/24 10:05 Polyethylene Glycol 3350 17 Gm Powd.Pack PO 17 gm QAM REGINA Administration Radiology Results: ITS Impressions Chest X-Ray 12/31/23 09:51 IMPRESSION: 1. No acute cardiopulmonary disease. Head CT 12/31/23 10:50 IMPRESSION: 1. 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 Ureter Stent X-Ray 01/03/24 15:35 IMPRESSION: 1. Fluoroscopy utilized during right internal ureteral stent exchange with proximal loop of a new stent projecting over the expected location of the right renal pelvis. See procedure note for further detail. Labs Labs: Laboratory Results - last 24 hr 01/03/24 01/03/24 01/03/24 07:57 07:58 12:00 WBC 7.2 RBC 3.43 L Hgb 8.1 L Hct 27.2 L MCV 79.3 L MCH 23.6 L MCHC 29.8 L RDW 19.0 H Plt Count 260 MPV 9.0 Sodium 140 Potassium 3.9 Chloride 109 H Carbon Dioxide 24 Anion Gap 7 BUN 29 H Creatinine 2.20 H Estim Creat Clear Calc 18 Estimated GFR 21 L Glucose 102 POC Capillary Glucose 114 H 82 Calcium 8.3 L 01/03/24 01/03/24 01/03/24 15:15 16:50 19:17 WBC RBC Hgb Hct MCV MCH MCHC RDW Plt Count MPV Sodium Potassium Chloride Carbon Dioxide Anion Gap BUN Creatinine Estim Creat Clear Calc Estimated GFR Glucose POC Capillary Glucose 99 98 119 H Calcium 01/04/24 06:28 WBC 6.5 RBC 3.38 L Hgb 7.8 L Hct 26.9 L MCV 79.6 L MCH 23.1 L MCHC 29.0 L RDW 18.8 H Plt Count 221 MPV 8.3 Sodium 137 Potassium 3.8 Chloride 107 Carbon Dioxide 23 Anion Gap 7 BUN 23 H Creatinine 2.00 H Estim Creat Clear Calc 20 Estimated GFR 24 L Glucose 97 POC Capillary Glucose Calcium 8.3 L
[2024-01-04 08:01] LABS: Glucose Point of Care 95 mg/dl (65-105)
--- NOTE | 2024-01-04 08:16 | PM.IMPN ---
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 She has had had history of E coli-drug resistant back in July of this year. She also has history of Proteus mirabilis which was also drug resistant on sensitivities. - lactic 2.1 initially- downtrending to 1 - WBC 10.2, HR109, RR 15, temp 98.[address]-negative - recent hospitalization here with AMS and uti- when meropenem was started but then stopped due to negative UA culture. continue meropenem until day 7 12/31 - passed swallow test - ok to order diet - will review home meds today and restart what is appropriate - she is a lot more alert and oriented today - continue above regimen (2) Acute UTI: Code(s): N39.0 - Urinary tract infection, site not specified Status: Acute Assessment and Plan: see plan above Arrangements made for next stent exchange in 6 months (3) Acute on chronic renal failure: Qualifiers: Acute renal failure type: unspecified Chronic kidney disease stage: stage 4 (severe) Qualified Code(s): N17.9 - Acute kidney failure, unspecified; N18.4 - Chronic kidney disease, stage 4 (severe) Code(s): N17.9 - Acute kidney failure, unspecified; N18.9 - Chronic kidney disease, unspecified Status: Acute Assessment and Plan: -cr/bun improved today, - continue to monitor labs daily (4) Chronic anticoagulation: Code(s): Z79.01 - [facility] (current) use of anticoagulants Status: Chronic Assessment and Plan: eliquis 2.5 mg BID -unsure why she is on it- will hold for now - from the chart review, on 05/[address] Benton: # DVT prophylaxis on apixaban. discussed with nursing facility 04/30/2022, apixaban restarted in oct for ?stroke which is what she had in 2019 prior to NH placement. unsure the reason for apixaban, but if need be, will need lower dose of apixaban due to her renal function. restart apixaban but at lower does 2.5 mg b.i.d.. - feels that with her frequent UTI and frequent AMS puts her at risk for fall and/or bleed and it would be safer to avoid eliquis at this time (5) Colonization with multidrug-resistant bacteria: Code(s): Z22.322 - Carrier or suspected carrier of Methicillin resistant Staphylococcus aureus Status: Acute Assessment and Plan: on meropenem x 7 days- (6) Congestive heart failure: Code(s): I50.9 - Heart failure, unspecified Status: Acute Assessment and Plan: Last echo reviewed from 08/22/2021 and showed a normal LV systolic function with an estimated EF of greater than 70%, moderate to severe aortic valve stenosis, abnormal diastolic function will hold po farxiga, restart home Lasix. DC IV fluids (7) Hydronephrosis of right kidney: Code(s): N13.30 - Unspecified hydronephrosis Status: Chronic Assessment and Plan: urology was consulted notes reviewed: chronic indwelling right ureteral stent is management for large stone burden and medically unfit for definitive intervention. She is overdue for stent change admitted now with an apparent urinary tract infection. In addition to the stent she has an indwelling suprapubic catheter. She is currently awake and denies any significant pain. 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 patient had urinary stents exchanged yesterday with , leukocytosis is resolved, creatinine is at baseline, patient has 2 more days of IV antibiotics patient having a visual hallucinations Review of Systems Review of Systems: 12 systems were reviewed and are negative except for as per HPI. Exam Narrative: General: well appearing, appears stated age. HEENT: normocephalic, atraumatic. Mucous membranes moist. EOMI, PERRLA, bilateral sclera anicteric, no conjunctival injection. Neck supple without JVD, lymphadenopathy, or bruit. Respiratory: clear to auscultation bilaterally. No rales/rhonic/wheezes. Cardiovascular: Regular rate and rhythm, normal S1-S2 upon auscultation. No murmurs, rubs, or clicks. PMI is nondisplaced, capillary refill less than 3 second. Abdomen: Soft, round, no pulsatile masses, nondistended and nontender. No rebound, no guarding. No CVA tenderness, no hepatosplenomegaly. Bowel sounds present to all four quadrants. No high pitch or tinkling sounds, resonant to percussion. Extremities: No cyanosis, clubbing, or edema present. Pulses are palpable 2/2. Active ROM to all four extremities. Neuro: Alert and orientated x 1. PERRLA. Cranial nerves 2-12 intact without focal deficit. with visual hallucinations Skin: Warm, dry, and intact, without rash, erythema, or lesion. Psych: pleasant, cooperative, normal speech, normal affect, no hallucinations, no dysarthria Const: General: comfortable HENMT: Mouth: Yes moist mucous membranes Neck: Other: erythema noted to neck from pt itching it Resp: Effort & Inspection: normal respiratory effort Auscultation: clear to auscultation bilaterally Urinary Catheter: Urinary Catheter: other (suprapubic cath) Neuro: Speech: normal speech Objective Data Vital Signs Vital Signs: Vital Signs - 24 hr 01/03/24 09:57 01/03/24 10:04 01/03/24 10:04 Temperature 97.8 F Pulse Rate 90 88 Respiratory Rate 16 Blood Pressure 119/56 L Pulse Oximetry 99 Oxygen Delivery Room Air Oxygen Flow Rate 01/03/24 11:20 01/03/24 14:21 01/03/24 14:35 Temperature 98.3 F 97.5 F L Pulse Rate 89 85 84 Respiratory Rate 18 10 L 16 Blood Pressure 122/59 L 132/67 130/79 Pulse Oximetry 98 100 100 Oxygen Delivery Room Air Simple Face Mask Room Air Oxygen Flow Rate 8 01/03/24 14:50 01/03/24 15:05 01/03/24 15:20 Temperature Pulse Rate 84 81 82 Respiratory Rate 16 16 16 Blood Pressure 119/74 109/84 132/59 L Pulse Oximetry 100 98 98 Oxygen Delivery Room Air Room Air Room Air Oxygen Flow Rate 01/03/24 15:30 01/03/24 15:45 01/03/24 14:00 Temperature 97.3 F L Pulse Rate 82 86 81 Respiratory Rate 16 17 18 Blood Pressure 134/66 131/65 119/57 L Pulse Oximetry 98 96 97 Oxygen Delivery Room Air Room Air Oxygen Flow Rate 01/03/24 21:28 01/03/24 21:47 01/03/24 20:00 Temperature 97.9 F Pulse Rate 88 108 H Respiratory Rate 16 Blood Pressure 107/84 Pulse Oximetry 97 Oxygen Delivery Room Air Oxygen Flow Rate 01/04/24 06:00 Temperature 97.6 F Pulse Rate 94 Respiratory Rate 22 H Blood Pressure 127/59 L Pulse Oximetry 97 Oxygen Delivery Oxygen Flow Rate Intake/Output Intake/Output: Intake & Output 01/01/24 01/02/24 01/03/24 01/04/24 23:59 23:59 23:59 23:59 Intake Total 1987.9 1640 2840 1912.1 Output Total 1250 1575 2530 1200 Balance 737.9 65 310 712.1 Meds/Results Medications: Active Medications Generic Name Dose Route Start Last Admin Trade Name Freq PRN Reason Stop Dose Admin Ascorbic Acid 500 mg 01/01/24 09:00 01/03/24 10:06 Ascorbic Acid 500 Mg Tablet PO 500 mg DAILY REGINA Administration Carvedilol 6.25 mg 01/01/24 09:00 01/03/24 21:47 Carvedilol 6.25 Mg Tablet PO 6.25 mg Q12HR REGINA Administration Docusate Sodium 100 mg 01/01/24 09:00 01/03/24 10:04 Docusate Sodium 100 Mg Capsule PO 100 mg DAILY REGINA Administration Duloxetine HCl 60 mg 01/01/24 09:00 01/03/24 10:04 Duloxetine Hcl 60 Mg Capsule.Dr PO 60 mg DAILY REGINA Administration Enoxaparin Sodium 30 mg 01/01/24 09:00 01/02/24 10:03 Enoxaparin 30 Mg/0.3 Ml Syringe SUB-Q 30 mg DAILY REGINA Administration Fentanyl Citrate 25 mcg 01/03/24 09:54 Fentanyl Citrate Inj (*Crx) 100 Mcg/2 Ml Vial IV PUSH Q2M PRN Pain Folic Acid 1 mg 01/01/24 09:00 01/03/24 10:05 Folic Acid 1 Mg Tablet PO 1 mg DAILY REGINA Administration Hydroxyzine HCl 25 mg 01/01/24 09:00 01/03/24 17:24 Hydroxyzine Hcl 25 Mg Tablet PO Not Given TID REGINA Meropenem 500 mg in 100 mls @ 200 mls/hr 12/31/23 21:00 01/03/24 21:48 IVPB 200 mls/hr Q12HR REGINA Administration Sodium Chloride 1,000 mls @ 125 mls/hr 01/02/24 18:05 01/04/24 06:22 Normal Saline Iv IV CONT 125 mls/hr .Q8H REGINA Administration Lactated Ringer's 1,000 mls @ 30 mls/hr 01/02/24 18:50 01/03/24 15:52 Lr - Lactated Ringers Iv IV CONT Infused .Q24H REGINA Infusion Lactated Ringer's 1,000 mls @ 30 mls/hr 01/03/24 09:55 Lr - Lactated Ringers Iv IV CONT .Q24H REGINA Lactulose 15 gm 01/01/24 09:00 01/03/24 10:03 Lactulose 20 Gm/30 Ml Udc PO 01/31/24 08:59 15 gm DAILY REGINA Administration Multivitamins Therapeutic 1 tablet 01/01/24 09:00 01/03/24 10:03 Multivitamins Therapeutic Tab (*Bkc) PO 1 tablet DAILY REGINA Administration Ondansetron HCl 4 mg 12/31/23 10:56 Ondansetron Inj 4 Mg/2 Ml Vial IV PUSH Q4H PRN Nausea Ondansetron HCl 4 mg 01/03/24 09:54 Ondansetron Inj 4 Mg/2 Ml Vial IV PUSH ONCE PRN Nausea Pantoprazole Sodium 40 mg 01/01/24 21:00 01/03/24 21:47 Pantoprazole 40 Mg Tablet PO 40 mg HS REGINA Administration Polyethylene Glycol 17 gm 01/03/24 09:00 01/03/24 10:05 Polyethylene Glycol 3350 17 Gm Powd.Pack PO 17 gm QAM REGINA Administration Radiology Results: ITS Impressions Chest X-Ray 12/31/23 09:51 IMPRESSION: 1. No acute cardiopulmonary disease. Head CT 12/31/23 10:50 IMPRESSION: 1. 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 Ureter Stent X-Ray 01/03/24 15:35 IMPRESSION: 1. Fluoroscopy utilized during right internal ureteral stent exchange with proximal loop of a new stent projecting over the expected location of the right renal pelvis. See procedure note for further detail. Labs Labs: Laboratory Results - last 24 hr 01/03/24 01/03/24 01/03/24 07:57 07:58 12:00 WBC 7.2 RBC 3.43 L Hgb 8.1 L Hct 27.2 L MCV 79.3 L MCH 23.6 L MCHC 29.8 L RDW 19.0 H Plt Count 260 MPV 9.0 Sodium 140 Potassium 3.9 Chloride 109 H Carbon Dioxide 24 Anion Gap 7 BUN 29 H Creatinine 2.20 H Estim Creat Clear Calc 18 Estimated GFR 21 L Glucose 102 POC Capillary Glucose 114 H 82 Calcium 8.3 L 01/03/24 01/03/24 01/03/24 15:15 16:50 19:17 WBC RBC Hgb Hct MCV MCH MCHC RDW Plt Count MPV Sodium Potassium Chloride Carbon Dioxide Anion Gap BUN Creatinine Estim Creat Clear Calc Estimated GFR Glucose POC Capillary Glucose 99 98 119 H Calcium 01/04/24 01/04/24 06:28 07:42 WBC 6.5 RBC 3.38 L Hgb 7.8 L Hct 26.9 L MCV 79.6 L MCH 23.1 L MCHC 29.0 L RDW 18.8 H Plt Count 221 MPV 8.3 Sodium 137 Potassium 3.8 Chloride 107 Carbon Dioxide 23 Anion Gap 7 BUN 23 H Creatinine 2.00 H Estim Creat Clear Calc 20 Estimated GFR 24 L Glucose 97 POC Capillary Glucose 95 Calcium 8.3 L Quality VTE Prophylaxis VTE prophylaxis: pharmacologic ordered
[2024-01-04] MEDS: MEROPENEM 500 MG/NS 100 ML 500 MG/100 ML BAG 200 MG IVPB ×2 (08:39→21:18)
[2024-01-04 08:41] VITALS: PULSE 96
[2024-01-04] MEDS: FOLIC ACID 1 MG TABLET PO (08:41)
[2024-01-04] MEDS: DOCUSATE SODIUM 100 MG CAPSULE PO (08:41)
[2024-01-04] MEDS: ASCORBIC ACID 500 MG TABLET PO (08:41)
[2024-01-04] MEDS: MULTIVITAMINS THERAPEUTIC TAB (*BKC) 1 TABLET PO (08:41)
[2024-01-04] MEDS: hydrOXYzine HCL 25 MG TABLET PO ×3 (08:41→18:33)
[2024-01-04] MEDS: carvediloL 6.25 MG TABLET PO ×2 (08:41→21:17)
[2024-01-04] MEDS: DULoxetine HCL 60 MG CAPSULE.DR PO (08:41)
[2024-01-04] MEDS: ENOXAPARIN 30 MG/0.3 ML SYRINGE SUB-Q (08:42)
[2024-01-04 11:51] LABS: Glucose Point of Care 103 mg/dl (65-105)
[2024-01-04 14:00] VITALS: BP 124/59; PULSE 100; RESP 18; TEMP 36.7; O2SAT 99
[2024-01-04 16:10] LABS: Glucose Point of Care 109 mg/dl (65-105)
[2024-01-04] MEDS: FUROSEMIDE 40 MG TABLET PO (17:00)
[2024-01-04 21:00] LABS: Glucose Point of Care 132 mg/dl (65-105)
[2024-01-04 21:17] VITALS: PULSE 84
[2024-01-04] MEDS: PANTOPRAZOLE 40 MG TABLET PO (21:18)
[2024-01-04 21:55] VITALS: BP 114/46; PULSE 88; RESP 20; TEMP 36.8; O2SAT 95
[2024-01-05 06:00] VITALS: BP 114/53; PULSE 91; RESP 20; TEMP 36.3; O2SAT 98
[2024-01-05 06:50] LABS: Hematocrit 26.8 % (37.0-47.0); Hemoglobin 7.9 g/dL (12.0-15.0); Mean Corpuscular HGB Conc 29.5 g/dl (32-36); Mean Corpuscular Hemoglobin 23.2 pg (26-34); Mean Corpuscular Volume 78.6 fl (80-100); Mean Platelet Volume 8.5 fl (7.4-10.4); Platelet Count Result 199 k/mm3 (150-375); Red Blood Count 3.41 M/mm3 (4.2-5.4); Red Cell Distribution Width 18.7 % (11.5-14.5); White Blood Count 6.3 K/mm3 (4.5-10.0)
[2024-01-05 07:07] LABS: Anion Gap 8 mmol/L (4-12); Blood Urea Nitrogen 23 mg/dL (7-17); Calcium 8.4 mg/dL (8.4-10.2); Carbon Dioxide 26 mmol/L (22-30); Chloride 104 mmol/L (98-107); Estimated CRCL calculation 19 ml/min; Estimated Glomerular Filt Rate 22; Glucose 97 mg/dL (65-110); Potassium 3.7 mmol/L (3.4-5.0); Sodium 138 mmol/L (137-145)
[2024-01-05 07:53] LABS: Glucose Point of Care 109 mg/dl (65-105)
[2024-01-05 08:00] VITALS: PULSE 91; RESP 20; O2SAT 98
[2024-01-05] MEDS: polyethylene glycoL 3350 17 GM POWD.PACK PO (08:41)
[2024-01-05] MEDS: carvediloL 6.25 MG TABLET PO ×2 (08:41→20:59)
[2024-01-05] MEDS: FUROSEMIDE 40 MG TABLET PO (08:41)
[2024-01-05] MEDS: FOLIC ACID 1 MG TABLET PO (08:42)
[2024-01-05] MEDS: DULoxetine HCL 60 MG CAPSULE.DR PO (08:42)
[2024-01-05] MEDS: ASCORBIC ACID 500 MG TABLET PO (08:42)
[2024-01-05] MEDS: DOCUSATE SODIUM 100 MG CAPSULE PO (08:42)
[2024-01-05] MEDS: MULTIVITAMINS THERAPEUTIC TAB (*BKC) 1 TABLET PO (08:42)
[2024-01-05] MEDS: ENOXAPARIN 30 MG/0.3 ML SYRINGE SUB-Q (08:46)
[2024-01-05] MEDS: hydrOXYzine HCL 25 MG TABLET PO ×2 (08:46→16:08)
[2024-01-05] MEDS: MEROPENEM 500 MG/NS 100 ML 500 MG/100 ML BAG 200 MG IVPB ×2 (08:46→21:02)
--- NOTE | 2024-01-05 08:52 | P.PNIM_ITS ---
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 She has had had history of E coli-drug resistant back in July of this year. She also has history of Proteus mirabilis which was also drug resistant on sensitivities. - lactic 2.1 initially- downtrending to 1 - WBC 10.2, HR109, RR 15, temp 98.[address]-negative - recent hospitalization here with AMS and uti- when meropenem was started but then stopped due to negative UA culture. continue meropenem until day 7 12/31 - passed swallow test - ok to order diet - will review home meds today and restart what is appropriate - she is a lot more alert and oriented today - continue above regimen 01/03 visual hallucinations (2) Acute UTI: Code(s): N39.0 - Urinary tract infection, site not specified Status: Acute Assessment and Plan: see plan above * Arrangements made for next stent exchange in 6 months (3) Acute on chronic renal failure: Qualifiers: Acute renal failure type: unspecified Chronic kidney disease stage: stage 4 (severe) Qualified Code(s): N17.9 - Acute kidney failure, unspecified; N18.4 - Chronic kidney disease, stage 4 (severe) Code(s): N17.9 - Acute kidney failure, unspecified; N18.9 - Chronic kidney disease, unspecified Status: Acute Assessment and Plan: -cr/bun improved today, - continue to monitor labs daily (4) Chronic anticoagulation: 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 discussed with nursing facility 04/30/2022, apixaban restarted in oct for ?stroke which is what she had in 2019 prior to NH placement. unsure the reason for apixaban, but if need be, will need lower dose of apixaban due to her renal function. restart apixaban but at lower does 2.5 mg b.i.d.. - feels that with her frequent UTI and frequent AMS puts her at risk for fall and/or bleed and it would be safer to avoid eliquis at this time (5) Colonization with multidrug-resistant bacteria: Code(s): Z22.322 - Carrier or suspected carrier of Methicillin resistant Staphylococcus aureus Status: Acute Assessment and Plan: on meropenem x 7 days- date 01/06/2024 (6) Congestive heart failure: Code(s): I50.9 - Heart failure, unspecified Status: Acute Assessment and Plan: * Last echo reviewed from 08/22/2021 and showed a normal LV systolic function with an estimated EF of greater than 70%, moderate to severe aortic valve stenosis, abnormal diastolic function * will hold po farxiga, continue home Lasix. (7) Hydronephrosis of right kidney: Code(s): N13.30 - Unspecified hydronephrosis Status: Chronic Assessment and Plan: urology was consulted notes reviewed: chronic indwelling right ureteral stent is management for large stone burden and medically unfit for definitive intervention. She is overdue for stent change admitted now with an apparent urinary tract infection. In addition to the stent she has an indwelling suprapubic catheter. She is currently awake and denies any significant pain. 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 patient had urinary stents exchanged yesterday with , leukocytosis is resolved, creatinine is at baseline, patient has 1 more day of IV antibiotics patient having a visual hallucinations Review of Systems Review of Systems: 12 systems were reviewed and are negative except for as per HPI. Exam Narrative: General: well appearing, appears stated age. HEENT: normocephalic, atraumatic. Mucous membranes moist. EOMI, PERRLA, bilateral sclera anicteric, no conjunctival injection. Neck supple without JVD, lymphadenopathy, or bruit. Respiratory: clear to auscultation bilaterally. No rales/rhonic/wheezes. Cardiovascular: Regular rate and rhythm, normal S1-S2 upon auscultation. No murmurs, rubs, or clicks. PMI is nondisplaced, capillary refill less than 3 second. Abdomen: Soft, round, no pulsatile masses, nondistended and nontender. No rebound, no guarding. No CVA tenderness, no hepatosplenomegaly. Bowel sounds present to all four quadrants. No high pitch or tinkling sounds, resonant to percussion. Extremities: No cyanosis, clubbing, or edema present. Pulses are palpable 2/2. Active ROM to all four extremities. Neuro: Alert and orientated x 1. PERRLA. Cranial nerves 2-12 intact without focal deficit. with visual hallucinations Skin: Warm, dry, and intact, without rash, erythema, or lesion. Psych: pleasant, cooperative, normal speech, normal affect, no hallucinations, no dysarthria Const: General: comfortable HENMT: Mouth: Yes moist mucous membranes and Yes dry mucous membranes Neck: Other: erythema noted to neck from pt itching it Resp: Effort & Inspection: normal respiratory effort Auscultation: clear to auscultation bilaterally Urinary Catheter: Urinary Catheter: other (suprapubic cath) Neuro: Speech: normal speech Objective Data Vital Signs Vital Signs: Vital Signs - 24 hr 01/04/24 14:00 01/04/24 21:17 01/04/24 21:55 Temperature 98.0 F 98.3 F Pulse Rate 100 84 88 Respiratory Rate 18 20 Blood Pressure 124/59 L 114/46 L Pulse Oximetry 99 95 Oxygen Delivery 01/04/24 20:00 01/05/24 06:00 Temperature 97.4 F L Pulse Rate 91 Respiratory Rate 20 Blood Pressure 114/53 L Pulse Oximetry 98 Oxygen Delivery Room Air Intake/Output Intake/Output: Intake & Output 01/02/24 01/03/24 01/04/24 01/05/24 23:59 23:59 23:59 23:59 Intake Total 1640 2940 3117.1 360 Output Total 1575 2530 2650 2100 Balance 65 410 467.1 -7612 Meds/Results Medications: Active Medications Generic Name Dose Route Start Last Admin Trade Name Freq PRN Reason Stop Dose Admin Ascorbic Acid 500 mg 01/01/24 09:00 01/05/24 08:42 Ascorbic Acid 500 Mg Tablet PO 500 mg DAILY REGINA Administration Carvedilol 6.25 mg 01/01/24 09:00 01/05/24 08:41 Carvedilol 6.25 Mg Tablet PO 6.25 mg Q12HR REGINA Administration Docusate Sodium 100 mg 01/01/24 09:00 01/05/24 08:42 Docusate Sodium 100 Mg Capsule PO 100 mg DAILY REGINA Administration Duloxetine HCl 60 mg 01/01/24 09:00 01/05/24 08:42 Duloxetine Hcl 60 Mg Capsule.Dr PO 60 mg DAILY REGINA Administration Enoxaparin Sodium 30 mg 01/01/24 09:00 01/05/24 08:46 Enoxaparin 30 Mg/0.3 Ml Syringe SUB-Q 30 mg DAILY REGINA Administration Folic Acid 1 mg 01/01/24 09:00 01/05/24 08:42 Folic Acid 1 Mg Tablet PO 1 mg DAILY REGINA Administration Furosemide 40 mg 01/04/24 13:20 01/05/24 08:41 Furosemide 40 Mg Tablet PO 40 mg DAILY REGINA Administration Hydroxyzine HCl 25 mg 01/01/24 09:00 01/05/24 08:46 Hydroxyzine Hcl 25 Mg Tablet PO 25 mg TID REGINA Administration Meropenem 500 mg in 100 mls @ 200 mls/hr 12/31/23 21:00 01/05/24 08:46 IVPB 01/06/24 21:29 200 mls/hr Q12HR REGINA Administration Multivitamins Therapeutic 1 tablet 01/01/24 09:00 01/05/24 08:42 Multivitamins Therapeutic Tab (*Bkc) PO 1 tablet DAILY REGINA Administration Ondansetron HCl 4 mg 12/31/23 10:56 Ondansetron Inj 4 Mg/2 Ml Vial IV PUSH Q4H PRN Nausea Ondansetron HCl 4 mg 01/03/24 09:54 Ondansetron Inj 4 Mg/2 Ml Vial IV PUSH ONCE PRN Nausea Pantoprazole Sodium 40 mg 01/01/24 21:00 01/04/24 21:18 Pantoprazole 40 Mg Tablet PO 40 mg HS REGINA Administration Polyethylene Glycol 17 gm 01/03/24 09:00 01/05/24 08:41 Polyethylene Glycol 3350 17 Gm Powd.Pack PO 17 gm QAM REGINA Administration Radiology Results: ITS Impressions Chest X-Ray 12/31/23 09:51 IMPRESSION: 1. No acute cardiopulmonary disease. Head CT 12/31/23 10:50 IMPRESSION: 1. 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 Ureter Stent X-Ray 01/03/24 15:35 IMPRESSION: 1. Fluoroscopy utilized during right internal ureteral stent exchange with proximal loop of a new stent projecting over the expected location of the right renal pelvis. See procedure note for further detail. Labs Labs: Laboratory Results - last 24 hr 01/04/24 01/04/24 01/04/24 11:48 16:05 20:50 WBC RBC Hgb Hct MCV MCH MCHC RDW Plt Count MPV Sodium Potassium Chloride Carbon Dioxide Anion Gap BUN Creatinine Estim Creat Clear Calc Estimated GFR Glucose POC Capillary Glucose 103 109 H 132 H Calcium 01/05/24 01/05/24 06:43 07:37 WBC 6.3 RBC 3.41 L Hgb 7.9 L Hct 26.8 L MCV 78.6 L MCH 23.2 L MCHC 29.5 L RDW 18.7 H Plt Count 199 MPV 8.5 Sodium 138 Potassium 3.7 Chloride 104 Carbon Dioxide 26 Anion Gap 8 BUN 23 H Creatinine 2.10 H Estim Creat Clear Calc 19 Estimated GFR 22 L Glucose 97 POC Capillary Glucose 109 H Calcium 8.4 Quality VTE Prophylaxis VTE prophylaxis: pharmacologic ordered
[2024-01-05 12:00] LABS: Glucose Point of Care 91 mg/dl (65-105)
[2024-01-05 14:00] VITALS: BP 126/60; PULSE 96; RESP 16; TEMP 36.7; O2SAT 95
[2024-01-05] MEDS: ACETAMINOPHEN 325 MG TABLET 650 MG PO ×2 (16:08→21:00)
[2024-01-05 16:37] LABS: Glucose Point of Care 137 mg/dl (65-105)
[2024-01-05 20:37] LABS: Glucose Point of Care 116 mg/dl (65-105)
[2024-01-05 20:59] VITALS: PULSE 89
[2024-01-05] MEDS: PANTOPRAZOLE 40 MG TABLET PO (20:59)
[2024-01-05 22:00] VITALS: BP 116/52; PULSE 92; RESP 22; TEMP 36.7; O2SAT 97
--- NOTE | 2024-01-06 01:28 | PC.NURSE ---
Daylight Savings Time For Daylight Savings Time Ending in the Fall - Clocks are moved back. For Daylight Savings Time Beginning in the Spring - Clocks are moved ahead. For [facility], the time of change occurs at 0200 hrs. Time is taken from the outside food server. This entry on the patient's chart recognizes the change in time reflected during documentation. Example: 2 entries for vital signs may be charted for 0200 hrs.
--- NOTE | 2024-01-06 01:35 | PC.NURSE ---
Daylight Savings Time For Daylight Savings Time Ending in the Fall - Clocks are moved back. For Daylight Savings Time Beginning in the Spring - Clocks are moved ahead. For [facility], the time of change occurs at 0200 hrs. Time is taken from the gravity prospecting observer helper. This entry on the patient's chart recognizes the change in time reflected during documentation. Example: 2 entries for vital signs may be charted for 0200 hrs.
[2024-01-06 06:00] VITALS: BP 104/49; PULSE 86; RESP 22; TEMP 36.7; O2SAT 98
[2024-01-06 08:00] VITALS: PULSE 86; RESP 22; O2SAT 98
[2024-01-06] MEDS: ASCORBIC ACID 500 MG TABLET PO (08:10)
[2024-01-06] MEDS: DULoxetine HCL 60 MG CAPSULE.DR PO (08:10)
[2024-01-06] MEDS: MULTIVITAMINS THERAPEUTIC TAB (*BKC) 1 TABLET PO (08:10)
[2024-01-06] MEDS: DOCUSATE SODIUM 100 MG CAPSULE PO (08:10)
[2024-01-06] MEDS: FUROSEMIDE 40 MG TABLET PO (08:10)
[2024-01-06] MEDS: FOLIC ACID 1 MG TABLET PO (08:10)
[2024-01-06] MEDS: carvediloL 6.25 MG TABLET PO ×2 (08:10→21:56)
[2024-01-06] MEDS: polyethylene glycoL 3350 17 GM POWD.PACK PO (08:10)
[2024-01-06] MEDS: hydrOXYzine HCL 25 MG TABLET PO ×2 (08:14→17:26)
[2024-01-06] MEDS: ENOXAPARIN 30 MG/0.3 ML SYRINGE SUB-Q (08:14)
[2024-01-06] MEDS: MEROPENEM 500 MG/NS 100 ML 500 MG/100 ML BAG 200 MG IVPB ×2 (08:15→21:56)
[2024-01-06 08:22] LABS: Glucose Point of Care 103 mg/dl (65-105)
--- NOTE | 2024-01-06 12:03 | P.PNIM_ITS ---
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 She has had had history of E coli-drug resistant back in July of this year. She also has history of Proteus mirabilis which was also drug resistant on sensitivities. - lactic 2.1 initially- downtrending to 1 - WBC 10.2, HR109, RR 15, temp 98.[address]-negative - recent hospitalization here with AMS and uti- when meropenem was started but then stopped due to negative UA culture. (2) Acute UTI: Code(s): N39.0 - Urinary tract infection, site not specified Status: Acute Assessment and Plan: see plan above * Arrangements made for next stent exchange in 6 months (3) Acute on chronic renal failure: Qualifiers: Acute renal failure type: unspecified Chronic kidney disease stage: stage 4 (severe) Qualified Code(s): N17.9 - Acute kidney failure, unspecified; N18.4 - Chronic kidney disease, stage 4 (severe) Code(s): N17.9 - Acute kidney failure, unspecified; N18.9 - Chronic kidney disease, unspecified Status: Acute Assessment and Plan: -cr/bun improved - continue to monitor labs daily (4) Chronic anticoagulation: Code(s): Z79.01 - halfway (current) use of anticoagulants Status: Chronic Assessment and Plan: eliquis 2.5 mg BID -unsure why she is on it- will hold for now - from the chart review, on 05/[address] Benton: # DVT prophylaxis on apixaban. discussed with nursing facility 04/30/2022, apixaban restarted in oct for ?stroke which is what she had in 2019 prior to NH placement. unsure the reason for apixaban, but if need be, will need lower dose of apixaban due to her renal function. restart apixaban but at lower does 2.5 mg b.i.d.. - feels that with her frequent UTI and frequent AMS puts her at risk for fall and/or bleed and it would be safer to avoid eliquis at this time (5) Colonization with multidrug-resistant bacteria: Code(s): Z22.322 - Carrier or suspected carrier of Methicillin resistant Staphylococcus aureus Status: Acute Assessment and Plan: on meropenem x 7 days- date 01/06/2024 (6) Congestive heart failure: Code(s): I50.9 - Heart failure, unspecified Status: Acute Assessment and Plan: * Last echo reviewed from 08/22/2021 and showed a normal LV systolic function with an estimated EF of greater than 70%, moderate to severe aortic valve stenosis, abnormal diastolic function * will hold po farxiga, continue home Lasix. (7) Hydronephrosis of right kidney: Code(s): N13.30 - Unspecified hydronephrosis Status: Chronic Assessment and Plan: urology was consulted notes reviewed: chronic indwelling right ureteral stent is management for large stone burden and medically unfit for definitive intervention. She is overdue for stent change admitted now with an apparent urinary tract infection. In addition to the stent she has an indwelling suprapubic catheter. She is currently awake and denies any significant pain. Renal stent changed 01/03/2024 with no issues, patient to follow-up in 6 months for another stent exchange (8) Ureteral stent present: Code(s): Z96.0 - Presence of urogenital implants Status: Acute Assessment and Plan: see above Plan Lovenox for DVT prophylaxis for now Subjective Date/time seen: 01/06/24 12:03 Interval history: No overnight events. No new complaints. Tolerating antibiotics. Review of Systems Review of Systems: 12 systems were reviewed and are negative except for as per HPI. Exam Narrative: General: well appearing, appears stated age. HEENT: normocephalic, atraumatic. Mucous membranes moist. EOMI, PERRLA, bilateral sclera anicteric, no conjunctival injection. Neck supple without JVD, lymphadenopathy, or bruit. Respiratory: clear to auscultation bilaterally. No rales/rhonic/wheezes. Cardiovascular: Regular rate and rhythm, normal S1-S2 upon auscultation. No murmurs, rubs, or clicks. PMI is nondisplaced, capillary refill less than 3 second. Abdomen: Soft, round, no pulsatile masses, nondistended and nontender. No rebound, no guarding. No CVA tenderness, no hepatosplenomegaly. Bowel sounds present to all four quadrants. No high pitch or tinkling sounds, resonant to percussion. Extremities: No cyanosis, clubbing, or edema present. Pulses are palpable 2/2. Active ROM to all four extremities. Neuro: Alert and orientated x 1. PERRLA. Cranial nerves 2-12 intact without focal deficit. with visual hallucinations Skin: Warm, dry, and intact, without rash, erythema, or lesion. Psych: pleasant, cooperative, normal speech, normal affect, no hallucinations, no dysarthria Objective Data Vital Signs Vital Signs: Vital Signs - 24 hr 01/05/24 14:00 01/05/24 20:59 01/05/24 20:00 Temperature 98.1 F Pulse Rate 96 89 Respiratory Rate 16 Blood Pressure 126/60 Pulse Oximetry 95 Oxygen Delivery Room Air 01/05/24 22:00 01/06/24 06:00 01/06/24 08:00 Temperature 98.1 F 98.1 F Pulse Rate 92 86 86 Respiratory Rate 22 H 22 H 22 H Blood Pressure 116/52 L 104/49 L Pulse Oximetry 97 98 98 Oxygen Delivery Room Air Intake/Output Intake/Output: Intake & Output 01/03/24 01/04/24 01/05/24 01/06/24 23:59 23:59 23:59 22:59 Intake Total 2940 3117.1 815 620 Output Total 2530 2650 2800 1300 Balance 410 467.1 -1985 -680 Meds/Results Medications: Active Medications Generic Name Dose Route Start Last Admin Trade Name Freq PRN Reason Stop Dose Admin Acetaminophen 650 mg 01/05/24 15:57 01/05/24 21:00 Acetaminophen 325 Mg Tablet PO 650 mg Q6H PRN Administration Mild Pain (1-3) or Fever Ascorbic Acid 500 mg 01/01/24 09:00 01/06/24 08:10 Ascorbic Acid 500 Mg Tablet PO 500 mg DAILY REGINA Administration Carvedilol 6.25 mg 01/01/24 09:00 01/06/24 08:10 Carvedilol 6.25 Mg Tablet PO 6.25 mg Q12HR REGINA Administration Docusate Sodium 100 mg 01/01/24 09:00 01/06/24 08:10 Docusate Sodium 100 Mg Capsule PO 100 mg DAILY REGINA Administration Duloxetine HCl 60 mg 01/01/24 09:00 01/06/24 08:10 Duloxetine Hcl 60 Mg Capsule.Dr PO 60 mg DAILY REGINA Administration Enoxaparin Sodium 30 mg 01/01/24 09:00 01/06/24 08:14 Enoxaparin 30 Mg/0.3 Ml Syringe SUB-Q 30 mg DAILY REGINA Administration Folic Acid 1 mg 01/01/24 09:00 01/06/24 08:10 Folic Acid 1 Mg Tablet PO 1 mg DAILY REGINA Administration Furosemide 40 mg 01/04/24 13:20 01/06/24 08:10 Furosemide 40 Mg Tablet PO 40 mg DAILY REGINA Administration Hydroxyzine HCl 25 mg 01/01/24 09:00 01/06/24 11:52 Hydroxyzine Hcl 25 Mg Tablet PO Not Given TID ON LICENSE OF [facility] Meropenem 500 mg in 100 mls @ 200 mls/hr 12/31/23 21:00 01/06/24 11:49 IVPB 01/06/24 21:29 Infused Q12HR ON LICENSE OF [facility] Infusion Multivitamins Therapeutic 1 tablet 01/01/24 09:00 01/06/24 08:10 Multivitamins Therapeutic Tab (*Bkc) PO 1 tablet DAILY ON LICENSE OF [facility] Administration Ondansetron HCl 4 mg 12/31/23 10:56 Ondansetron Inj 4 Mg/2 Ml Vial IV PUSH Q4H PRN Nausea Ondansetron HCl 4 mg 01/03/24 09:54 Ondansetron Inj 4 Mg/2 Ml Vial IV PUSH ONCE PRN Nausea Pantoprazole Sodium 40 mg 01/01/24 21:00 01/05/24 20:59 Pantoprazole 40 Mg Tablet PO 40 mg HS REGINA Administration Polyethylene Glycol 17 gm 01/03/24 09:00 01/06/24 08:10 Polyethylene Glycol 3350 17 Gm Powd.Pack PO 17 gm QAM REGINA Administration Radiology Results: ITS Impressions Chest X-Ray 12/31/23 09:51 IMPRESSION: 1. No acute cardiopulmonary disease. Head CT 12/31/23 10:50 IMPRESSION: 1. 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 Ureter Stent X-Ray 01/03/24 15:35 IMPRESSION: 1. Fluoroscopy utilized during right internal ureteral stent exchange with proximal loop of a new stent projecting over the expected location of the right renal pelvis. See procedure note for further detail. Labs Labs: Laboratory Results - last 24 hr 01/05/24 01/05/24 01/06/24 16:31 20:31 07:58 POC Capillary Glucose 137 H 116 H 103
[2024-01-06 12:09] LABS: Glucose Point of Care 117 mg/dl (65-105)
[2024-01-06 14:00] VITALS: BP 113/68; PULSE 59; RESP 18; TEMP 35.6
[2024-01-06 16:37] LABS: Glucose Point of Care 134 mg/dl (65-105)
[2024-01-06 21:56] VITALS: PULSE 86
[2024-01-06] MEDS: PANTOPRAZOLE 40 MG TABLET PO (21:56)
[2024-01-06 22:00] VITALS: BP 96/58; PULSE 88; RESP 16; TEMP 36.9; O2SAT 97
[2024-01-07 06:00] VITALS: BP 123/48; PULSE 88; RESP 20; TEMP 36.3; O2SAT 96
[2024-01-07 07:01] LABS: Basophils Absolute Auto 0.1 K/mm3 (0.0-0.1); Basophils Percent Auto 0.6 % (0.2-1.2); Eosinophils Absolute Auto 0.6 K/mm3 (0-0.3); Eosinophils Percent Auto 7.3 % (0-4.4); Hematocrit 28.9 % (37.0-47.0); Hemoglobin 8.5 g/dL (12.0-15.0); Immature Granulocyte Absolute 0.03 K/mm3 (0.00-0.031); Immature Granulocyte Percent A 0.4 % (0-0.5); Lymphocytes Absolute Auto 1.06 K/mm3 (0.9-3.2); Lymphocytes Percent Auto 13.6 % (18.3-44.2); Mean Corpuscular HGB Conc 29.4 g/dl (32-36); Mean Corpuscular Hemoglobin 23.3 pg (26-34); Mean Corpuscular Volume 79.2 fl (80-100); Mean Platelet Volume 9.1 fl (7.4-10.4); Monocytes Absolute Auto 0.6 K/mm3 (0.1-0.6); Monocytes Percent Auto 7.4 % (2.6-8.5); Neutrophils Absolute Auto 5.5 K/mm3 (1.3-6.7); Neutrophils Percent Auto 70.7 % (45.5-73.1); Platelet Count Result 231 k/mm3 (150-375); Red Blood Count 3.65 M/mm3 (4.2-5.4); Red Cell Distribution Width 18.6 % (11.5-14.5); White Blood Count 7.8 K/mm3 (4.5-10.0)
[2024-01-07 07:11] LABS: Alanine Aminotransferase 16 U/L (6-35); Albumin Level 3.6 g/dL (3.5-5.1); Alkaline Phosphatase 91 U/L (38-126); Anion Gap 8 mmol/L (4-12); Aspartate Amino Transferase 27 U/L (14-36); Bilirubin,Total 0.4 mg/dL (0.2-1.3); Blood Urea Nitrogen 25 mg/dL (7-17); Calcium 8.4 mg/dL (8.4-10.2); Carbon Dioxide 28 mmol/L (22-30); Chloride 99 mmol/L (98-107); Estimated CRCL calculation 18 ml/min; Estimated Glomerular Filt Rate 22; Glucose 99 mg/dL (65-110); Magnesium 1.9 mg/dL (1.6-2.3); Potassium 3.8 mmol/L (3.4-5.0); Sodium 135 mmol/L (137-145)
[2024-01-07 08:00] LABS: Glucose Point of Care 105 mg/dl (65-105)
[2024-01-07] MEDS: FOLIC ACID 1 MG TABLET PO (08:13)
[2024-01-07] MEDS: carvediloL 6.25 MG TABLET PO (08:13)
[2024-01-07] MEDS: DOCUSATE SODIUM 100 MG CAPSULE PO (08:13)
[2024-01-07] MEDS: MULTIVITAMINS THERAPEUTIC TAB (*BKC) 1 TABLET PO (08:13)
[2024-01-07] MEDS: polyethylene glycoL 3350 17 GM POWD.PACK PO (08:13)
[2024-01-07] MEDS: DULoxetine HCL 60 MG CAPSULE.DR PO (08:13)
[2024-01-07] MEDS: ASCORBIC ACID 500 MG TABLET PO (08:13)
[2024-01-07] MEDS: FUROSEMIDE 40 MG TABLET PO (08:13)
[2024-01-07] MEDS: ENOXAPARIN 30 MG/0.3 ML SYRINGE SUB-Q (08:15)
[2024-01-07] MEDS: hydrOXYzine HCL 25 MG TABLET PO (08:15)
[2024-01-07 09:11] LABS: Anisocytosis 2+; Hypochromasia 2+; Ovalocytes 1+; Polychromasia 1+
[2024-01-07 09:12] LABS: Schistocytes None Seen
[2024-01-07 10:00] LABS: Platelet Estimate Adequate (Adequate)
[2024-01-07 11:39] LABS: Glucose Point of Care 143 mg/dl (65-105)
--- NOTE | 2024-01-07 12:01 | PM.DS ---
DS: Admitting Diagnosis Discharge Date 01/07/2024 Admitting Diagnosis Altered mental status DS: Discharge Diagnosis Discharge Diagnosis (1) AMS (altered mental status): Code(s): R41.82 - Altered mental status, unspecified Status: Acute (2) Acute UTI: Code(s): N39.0 - Urinary tract infection, site not specified Status: Acute (3) Acute on chronic renal failure: Qualifiers: Acute renal failure type: unspecified Chronic kidney disease stage: stage 4 (severe) Qualified Code(s): N17.9 - Acute kidney failure, unspecified; N18.4 - Chronic kidney disease, stage 4 (severe) Code(s): N17.9 - Acute kidney failure, unspecified; N18.9 - Chronic kidney disease, unspecified Status: Acute (4) Chronic anticoagulation: Code(s): Z79.01 - parts counterman (current) use of anticoagulants Status: Chronic (5) Colonization with multidrug-resistant bacteria: Code(s): Z22.322 - Carrier or suspected carrier of Methicillin resistant Staphylococcus aureus Status: Acute (6) Congestive heart failure: Code(s): I50.9 - Heart failure, unspecified Status: Acute (7) Hydronephrosis of right kidney: Code(s): N13.30 - Unspecified hydronephrosis Status: Chronic (8) Ureteral stent present: Code(s): Z96.0 - Presence of urogenital implants Status: Acute DS: Summary Hospital Course Hospital Course: # AMS (altered mental status): -very likely due to UTI- turbid appearance, 2+ protein, 1+ glucose, positive nitrates, 3+ esterase, >100 uirne WBC, 4+ bacteria - Patient has history ESBL in the urine with multiple drug resistant on sensitivities. She has had had history of E coli-drug resistant back in July of this year. She also has history of Proteus mirabilis which was also drug resistant on sensitivities. - lactic 2.1 initially- downtrending to 1 - WBC 10.2, HR109, RR 15, temp 98.[address]-negative - recent hospitalization here with AMS and uti- when meropenem was started but then stopped due to negative UA culture. Restarted on meropenem and completed the course. Altered mental status resolved by the time of discharge # Acute UTI: see plan above Arrangements made for next stent exchange in 6 months # Acute on chronic renal failure: -cr/bun improved - continue to monitor labs daily # Chronic anticoagulation: eliquis 2.5 mg BID # Colonization with multidrug-resistant bacteria: on meropenem x 7 days-concluded during the hospital stay # Congestive heart failure: Last echo reviewed from 08/22/2021 and showed a normal LV systolic function with an estimated EF of greater than 70%, moderate to severe aortic valve stenosis, abnormal diastolic function will hold po farxiga, continue home Lasix. # Hydronephrosis of right kidney: urology was consulted notes reviewed: chronic indwelling right ureteral stent is management for large stone burden and medically unfit for definitive intervention. She is overdue for stent change admitted now with an apparent urinary tract infection. In addition to the stent she has an indwelling suprapubic catheter. She is currently awake and denies any significant pain. Renal stent changed 01/03/2024 with no issues, patient to follow-up in 6 months for another stent exchange # Ureteral stent present: see above # Lovenox for DVT prophylaxis Time Spent with Patient Time attestation: Total time spent providing and/or coordinating discharge services: 35 minutes Exam Narrative: General: well appearing, appears stated age. HEENT: normocephalic, atraumatic. Mucous membranes moist. EOMI, PERRLA, bilateral sclera anicteric, no conjunctival injection. Neck supple without JVD, lymphadenopathy, or bruit. Respiratory: clear to auscultation bilaterally. No rales/rhonic/wheezes. Cardiovascular: Regular rate and rhythm, normal S1-S2 upon auscultation. No murmurs, rubs, or clicks. PMI is nondisplaced, capillary refill less than 3 second. Abdomen: Soft, round, no pulsatile masses, nondistended and nontender. No rebound, no guarding. No CVA tenderness, no hepatosplenomegaly. Bowel sounds present to all four quadrants. No high pitch or tinkling sounds, resonant to percussion. Extremities: No cyanosis, clubbing, or edema present. Pulses are palpable 2/2. Active ROM to all four extremities. Neuro: Alert and orientated x 1. PERRLA. Cranial nerves 2-12 intact without focal deficit. with visual hallucinations Skin: Warm, dry, and intact, without rash, erythema, or lesion. Psych: pleasant, cooperative, normal speech, normal affect, no hallucinations, no dysarthria DS: Data Data Completed and Pending Labs on day of discharge: Labs from last 24 hours 01/07/24 01/07/24 01/07/24 11:29 07:42 06:41 WBC 7.8 RBC 3.65 L Hgb 8.5 L Hct 28.9 L MCV 79.2 L MCH 23.3 L MCHC 29.4 L RDW 18.6 H Plt Count 231 MPV 9.1 Immature Gran % (Auto) 0.4 Neut % (Auto) 70.7 Lymph % (Auto) 13.6 L Titus % (Auto) 7.4 Eos % (Auto) 7.3 H Baso % (Auto) 0.6 Lymph # (Auto) 1.06 Titus # (Auto) 0.6 Eos # (Auto) 0.6 H Baso # (Auto) 0.1 Abs Immat Gran (auto) 0.03 Absolute Neuts (auto) 5.5 Absolute Nucleated RBC 0.000 Nucleated RBC % 0.0 Platelet Estimate Adequate Polychromasia 1+ Hypochromasia 2+ Anisocytosis 2+ Ovalocytes 1+ Schistocytes None seen Sodium 135 L Potassium 3.8 Chloride 99 Carbon Dioxide 28 Anion Gap 8 BUN 25 H Creatinine 2.10 H Estim Creat Clear Calc 18 Estimated GFR 22 L Glucose 99 POC Capillary Glucose 143 H 105 Calcium 8.4 Magnesium 1.9 Total Bilirubin 0.4 AST 27 ALT 16 Alkaline Phosphatase 91 Total Protein 7.0 Albumin 3.6 01/06/24 01/06/24 16:27 12:07 WBC RBC Hgb Hct MCV MCH MCHC RDW Plt Count MPV Immature Gran % (Auto) Neut % (Auto) Lymph % (Auto) Titus % (Auto) Eos % (Auto) Baso % (Auto) Lymph # (Auto) Titus # (Auto) Eos # (Auto) Baso # (Auto) Abs Immat Gran (auto) Absolute Neuts (auto) Absolute Nucleated RBC Nucleated RBC % Platelet Estimate Polychromasia Hypochromasia Anisocytosis Ovalocytes Schistocytes Sodium Potassium Chloride Carbon Dioxide Anion Gap BUN Creatinine Estim Creat Clear Calc Estimated GFR Glucose POC Capillary Glucose 134 H 117 H Calcium Magnesium Total Bilirubin AST ALT Alkaline Phosphatase Total Protein Albumin Procedures/Treatments: Procedure Note - Detailed Date of Procedure 01/03/24 Pre-op Diagnosis Acute encephalopathy,dehydration, right renal calculi Post-op Diagnosis Same Procedure Performed Cystoscopy, right ureteral stent exchange, suprapubic catheter exchange Surgeon Richard Camargo MD Anesthesia General Description of Procedure patient is brought to the operative suite where she was prepped draped in routine sterile fashion in the supine position. 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 I opted to do this through her suprapubic tract. a suprapubic catheter was removed and a 16 F flexible cystoscope was used to identify and grasp the indwelling stent. I was unable to place a wire through the stent but the, using active office for an 8 F 10 F dilator and a safety wire I was able to remove and exchange the 4.8 F right double-J stent. Appropriate positioning was confirmed by fluoroscopy and cystoscopy. A 20 F suprapubic catheter was replaced. I will plan to exchange the stent again in 6 months. Urine Output 425 Drains Yes Packing No Imaging Radiologist's impression: ITS Impressions Chest X-Ray 12/31/23 09:51 IMPRESSION: 1. No acute cardiopulmonary disease. Head CT 12/31/23 10:50 IMPRESSION: 1. 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 Ureter Stent X-Ray 01/03/24 15:35 IMPRESSION: 1. Fluoroscopy utilized during right internal ureteral stent exchange with proximal loop of a new stent projecting over the expected location of the right renal pelvis. See procedure note for further detail. Discharge Plan Discharge Attending physician on discharge: Mansoor Benton Consulting providers: Ivan Vieira Discharging Clinician: Mansoor Benton Anticipated Discharge Date/Time: 01/07/24 12:01 Patient Disposition: Home Health Service Activity: as tolerated Diet: heart healthy Discharge Instructions: Per Care Coordination: [facility] ([phone]) will call to resume services at discharge. RN please fax discharge summary and reports to [phone] Patient Instructions: Antibiotic Form Stand Alone Forms: General Discharge Information Follow-up/Referrals: Ampadu,MD Cm [Primary Care Provider] - 1 Week Ivan Vieira MD [Physician] - Keep Reg. Scheduled Appt. Discharge Medications: Continued baclofen 10 mg tablet 10 mg PO TID PRN (Reason: Muscle Spasm) hydroxyzine HCl 25 mg tablet 25 mg PO TID Caltrate 600 plus D 600 mg (1,500 mg)-800 unit Tablet,Chewable 1 tablet PO BID carvedilol [Coreg] 6.25 mg Tablet 6.25 mg PO Q12HR 30 Days Qty: 60 0RF Rx Instructions: Hold for HR<60 folic acid 1 mg tablet 1 mg PO DAILY ascorbic acid (vitamin C) 500 mg Tablet 500 mg PO DAILY multivitamin Tablet 1 tablet PO DAILY Pro-Stat AWC 17-100 gram-kcal/30 mL Liquid 1 ea PO BID nystatin 100,000 unit/gram Powder 1 applic TOPICAL BID duloxetine 60 mg capsule,delayed release(DR/EC) 60 mg PO DAILY Eliquis 2.5 mg tablet 2.5 mg PO Q12H furosemide 40 mg tablet 40 mg PO DAILY hydrocodone-acetaminophen 5-325 mg tablet 1 tablet PO Q6H PRN (Reason: Back Pain) pantoprazole 40 mg tablet,delayed release (DR/EC) 40 mg PO HS docusate sodium 100 mg capsule 100 mg PO DAILY nystatin [Klayesta] 100,000 unit/gram powder 1 applic TOPICAL Q12H Rx Instructions: Use on affected areas of skin (unknown area) lactulose 10 gram/15 mL solution 15 ml PO DAILY dapagliflozin propanediol [Farxiga] 5 mg tablet 5 mg PO DAILY Date of admission: 12/31/23 10:56 Primary Care Provider: Cm Lr Admitting Provider: Dwight Schulte Attending physician on admission: Dwight Schulte Condition: Improved Hospitalist MIPS Heart Failure (Exclusion) Patient has history of Heart Transplant or Left Ventricular Assistive Device?: No IF YES, STOP HERE Heart Failure (Qualifier) Patient has current or prior documentation of LVEF less than or equal to 40%, or mod/servere depressed LVSF?: No IF NO, STOP HERE
--- NOTE | 2024-01-07 14:23 | PC.NURSE ---
Patient DC'd sent with belongings, report called to Son in Law (POA) Arnulfo. Patient and family verbalize understanding.
--- NOTE | 2024-01-09 13:34 | P.HP_ITS ---
H&P: HPI History of Present Illness Date/Time: 12/31/23 Chief Complaint: Interval history: 83 y.o female with chronic indwelling 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 Of note, she was recently hospitalized with ams on 12/20- 12/23. She had MANISHA that improved with IV fluids as well as her mental status. Her hemoglobin dropped below 7 and her stool was Hemoccult positive prompting GI consultation however she declined colonoscopy. Based on chart review. she had ureteral stent: A ureteral stent is in expected position and she needs to follow-up with Urology as an outpatient for stent exchange at some point in the near future. - unclear if she followed up or not. I was not able to get much from her- she was opening her eyes, following some commands but inconsistent. Unable to provide much other information. Noted very poor oral hygiene, redness to neck- she kept itching it during the exam. IN ED - initial lactic elevated- 2.1 then improved to 1 - Urine- turbid, nitrate positive, 2+ blood, 2+ protein, 4+ bacteria. Cultures reflexed. WBC 10.2, hg/hct 9.3/31.6. BUN/CR 62/3.10 (she was as high as 3.30, baseline around 2.20-2.40)Anion gap 14. Head ct- Chronic encephalomalacia in right frontal lobe and anterior right temporal lobe. Chest x ray- No acute cardiopulmonary disease. Review of Systems Review of Systems: 12 systems were reviewed and are negative except for as per HPI. ROS unobtainable: Yes unobtainable due to mental status PMFSH Past Medical History Medical History Anemia, chronic disease Aortic stenosis Reportedly she has severe aortic stenosis and is followed by a [facility] in [place]. Apparently she has been deemed not a surgical candidate at this time due to her other medical conditions. Brain aneurysm Chronic anticoagulation Chronic kidney disease, stage 4 (severe) Chronic obstructive pulmonary disease Colonization with multidrug-resistant bacteria Urine cultures over the years have grown ESBL E coli, multidrug resistant Proteus mirabilis, and fluoroquinolone resistant Pseudomonas aeruginosa. 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 History of hysterectomy Family History Family History Father Acute myocardial infarction Social History Social History Social History: Healthcare power of estate attorney: Arnulfo Acosta ([phone]). Code status: Modified code, no CPR. Smoking packs per day: 1 Smoking cigarettes per day: 20.0 Years smoked: 20 Smoking pack-years: 20.00 Smoking status: Unknown if ever smoked Second hand tobacco smoke exposure: No Alcohol intake: never Substance use: never Substance use type: does not use Do You Feel Safe in your Home?: Yes Lack of Transportation: No Lack of Food: Never True Current Housing: I Have Housing Concerned About Future Housing: No Difficulty Paying Gas/Electric Bills: No Difficulty Paying for Meds: No Currently Unemployed: No Education: Bachelor's Degree Difficulty w/ Childcare or Family Care: No Living arrangements: [facility] Additional living arrangements comments: [facility]. 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 Spiritual care concerns: No Meds Home Medications and Allergies Home Medications Medication Instructions Recorded Confirmed Type calcium 600 mg (as carbonate)-vit 1 tablet PO BID 09/02/19 12/31/23 History D3 20 mcg (800 unit) chewable tablet (Caltrate plus D) carvedilol 6.25 mg tablet (Coreg) 6.25 mg PO Q12HR 30 days #60 tabs 09/09/19 12/31/23 Rx ascorbic acid (vitamin C) 500 mg 500 mg PO DAILY 03/30/21 12/31/23 History tablet folic acid 1 mg tablet 1 mg PO DAILY 03/30/21 12/31/23 History amino acids-protein hydrolysate 17 1 ea PO BID 12/14/21 12/31/23 History gram-100 kcal/30 mL oral liquid (Pro-Stat AW) multivitamin 1 tablet PO DAILY 12/14/21 12/31/23 History baclofen 10 mg tablet 10 mg PO TID PRN Muscle Spasm 03/27/23 12/31/23 History hydroxyzine HCl 25 mg tablet 25 mg PO TID 03/27/23 12/31/23 History apixaban 2.5 mg tablet (Eliquis) 2.5 mg PO Q12H 11/18/23 12/31/23 History duloxetine 60 mg capsule,delayed 60 mg PO DAILY 11/18/23 12/31/23 History release nystatin 100,000 unit/gram topical 1 applic topical BID 11/18/23 12/31/23 History powder dapagliflozin propanediol 5 mg 5 mg PO DAILY 12/21/23 12/31/23 History tablet (Farxiga) docusate sodium 100 mg capsule 100 mg PO DAILY 12/21/23 12/31/23 History furosemide 40 mg tablet 40 mg PO DAILY 12/21/23 12/31/23 History hydrocodone 5 mg-acetaminophen 325 1 tablet PO Q6H PRN Back Pain 12/21/23 12/31/23 History mg tablet lactulose 10 gram/15 mL oral 15 ml PO DAILY 12/21/23 12/31/23 History solution nystatin 100,000 unit/gram topical 1 applic topical Q12H 12/21/23 12/31/23 History powder (Klayesta) pantoprazole 40 mg tablet,delayed 40 mg PO HS 12/21/23 12/31/23 History release Allergies Allergy/AdvReac Type Severity Reaction Status Date / Time Sulfa (Sulfonamide Allergy Severe rash Verified 01/02/24 15:22 Antibiotics) phenytoin [From Dilantin] Allergy Mild Hives Verified 12/21/23 15:18 pregabalin [From Lyrica] AdvReac Unknown DIZZY, Verified 12/21/23 15:18 SEDATED Exam Narrative: resting with eyes closed, open eyes when spoken to, interacts somewhat but inconsistent. Neck: Other: erythema noted to neck from pt itching it Resp: Effort & Inspection: normal respiratory effort Auscultation: clear to auscultation bilaterally Cardio: Rate: regular rate GI: Inspection: non-distended GI Palp: Yes Soft to palpation Auscultation: normal bowel sounds Urinary Catheter: Urinary Catheter: other (suprapubic cath) Neuro: Speech: normal speech Assessment and Plan Assessment and plan (1) AMS (altered mental status): Code(s): R41.82 - Altered mental status, unspecified Status: Acute Assessment and Plan: -very likely due to UTI- turbid appearance, 2+ protein, 1+ glucose, positive nitrates, 3+ esterase, >100 uirne WBC, 4+ bacteria - Patient has history ESBL in the urine with multiple drug resistant on sensitivities. She has had had history of E coli-drug resistant back in July of this year. She also has history of Proteus mirabilis which was also drug resistant on sensitivities. - lactic 2.1 initially- downtrending to 1 - WBC 10.2, HR109, RR 15, temp 98.[address]-negative - recent hospitalization here with AMS and uti- when meropenem was started but then stopped due to negative UA culture. - ua was collected and sent- follow sensitivities -she was given a dose of Ceftriaxone and meropenem x 1 in ED- will continue meropenem 500 mg q12h continue IV fluids 125 ml/h - bladder scan if needed - bedside swallow eval per nursing and/or swallow eval per speech if indicated prior to feeding pt - neuro checks (2) Acute UTI: Code(s): N39.0 - Urinary tract infection, site not specified Status: Acute Assessment and Plan: see plan above * Arrangements made for next stent exchange in 6 months (3) Acute on chronic renal failure: Qualifiers: Acute renal failure type: unspecified Chronic kidney disease stage: stage 4 (severe) Qualified Code(s): N17.9 - Acute kidney failure, unspecified; N18.4 - Chronic kidney disease, stage 4 (severe) Code(s): N17.9 - Acute kidney failure, unspecified; N18.9 - Chronic kidney disease, unspecified Status: Acute Assessment and Plan: -cr/bun improved - continue to monitor labs daily (4) Chronic anticoagulation: Code(s): Z79.01 - correction (current) use of anticoagulants Status: Chronic Assessment and Plan: eliquis 2.5 mg BID -unsure why she is on it- will hold for now - from the chart review, on 05/[address] Benton: # DVT prophylaxis on api xaban. discussed with nursing facility 04/30/2022, apixaban restarted in oct for ?stroke which is what she had in 2019 prior to NH placement. unsure the reason for apixaban, but if need be, will need lower dose of apixaban due to her renal function. restart apixaban but at lower does 2.5 mg b.i.d.. - feels that with her frequent UTI and frequent AMS puts her at risk for fall and/or bleed and it would be safer to avoid eliquis at this time (5) Colonization with multidrug-resistant bacteria: Code(s): Z22.322 - Carrier or suspected carrier of Methicillin resistant Staphylococcus aureus Status: Acute Assessment and Plan: on meropenem x 7 days- date 01/06/2024 (6) Congestive heart failure: Code(s): I50.9 - Heart failure, unspecified Status: Acute Assessment and Plan: * Last echo reviewed from 08/22/2021 and showed a normal LV systolic function with an estimated EF of greater than 70%, moderate to severe aortic valve stenosis, abnormal diastolic function * will hold po farxiga, continue home Lasix. (7) Hydronephrosis of right kidney: Code(s): N13.30 - Unspecified hydronephrosis Status: Chronic Assessment and Plan: urology was consulted notes reviewed: chronic indwelling right ureteral stent is management for large stone burden and medically unfit for definitive intervention. She is overdue for stent guthrie ge admitted now with an apparent urinary tract infection. In addition to the stent she has an indwelling suprapubic catheter. She is currently awake and denies any significant pain. Renal stent changed 01/03/2024 with no issues, patient to follow-up in 6 months for another stent exchange (8) Ureteral stent present: Code(s): Z96.0 - Presence of urogenital implants Status: Acute Assessment and Plan: see above Plan Lovenox for DVT prophylaxis for now Quality VTE Prophylaxis VTE prophylaxis: pharmacologic ordered Hospitalist MIPS Advance Care Plan I have confirmed that the patient's Advanced Care Plan is present, code status is documented, or surrogate decision maker is listed in patient medical record.: Yes Medication Reconciliation I have utilized all available resources to obtain, update and review the patients current medications (includes all prescriptions, OTC, herbals, cannabis, and nutritional supplements).: Yes
== END 2024-01-07 14:30 | disposition home health service (06) | DRG 660 ==
LOC: ANHED 08:11 → ANHIMU 11:52 → ANH3MEDSUR 01-02 18:18
PROVIDERS: Nurse Practitioner; Urology; Admitting Provider Internal Medicine; Emergency Provider General Practice; PCP Internal Medicine; Visit Provider Internal Medicine
PROC: 0T2BX0Z Change Drainage Device in Bladder, External Approach (ICD-10-PCS; CPT 52352; principal; 2024-01-03 12:45)
DX: T83.518A Infection and inflammatory reaction due to other urinary catheter, initial encounter (principal); G93.40 Encephalopathy, unspecified; N13.6 Pyonephrosis; I13.0 Hypertensive heart and chronic kidney disease with heart failure and stage 1 through stage 4 chronic kidney disease, or unspecified chronic kidney disease; I50.32 Chronic diastolic (congestive) heart failure; N18.4 Chronic kidney disease, stage 4 (severe); N17.9 Acute kidney failure, unspecified; T83.592A Infection and inflammatory reaction due to indwelling ureteral stent, initial encounter; D50.9 Iron deficiency anemia, unspecified; D63.8 Anemia in other chronic diseases classified elsewhere; I35.0 Nonrheumatic aortic (valve) stenosis; E03.9 Hypothyroidism, unspecified; J44.9 Chronic obstructive pulmonary disease, unspecified; F32.A Depression, unspecified; F41.9 Anxiety disorder, unspecified; G47.33 Obstructive sleep apnea (adult) (pediatric); Z96.0 Presence of urogenital implants; Z79.01 Long term (current) use of anticoagulants; Z93.50 Unspecified cystostomy status; Z22.358 Carrier of other Enterobacterales; Z22.322 Carrier or suspected carrier of Methicillin resistant Staphylococcus aureus
CPT/HCPCS: 36415; 36600; 70450; 71045; 80048; 80053; 81001; 82140; 82805; 82948; 83605; 83735; 85018; 85025; 85027; 85610; 85730; 87086; 93005; 96361; 96365; 99285; A9270; C1769; C2617; J0696; J1650; J2003; J2185; J2704; J7030; J7120; Q9966

== ENCOUNTER 2024-06-12 01:14 | Day surgery (SDC) | payer MEDICARE, SELFPAY ==
[2024-06-02 13:49] VITALS: BMI 44.9
--- NOTE | 2024-06-02 14:34 | PC.NURSE ---
Report to the Outpatient Waiting Room, entrance under the green pavilion located off [facility], at time ___6:30AM____ on date ___06/12/24____. Planned Procedure Time: ___8:30AM .? Time changes happen often and if your time is changed the preop area will call you the afternoon before. - You and your visitor will be asked to self-screen and do not enter if you have any COVID symptoms. Please call surgeon if you need to reschedule. - A mask is optional within the hospital at this time. Patients may have clear liquids (water, carbonated beverages, clear teas, apple juice) until 3 hours prior to surgery (5:30AM) with a maximum of 20 ounces. - No food from midnight until time of surgery and no smoking, or chewing tobacco (or any form of nicotine). No chewing gum, candy or mints. Take only the following medications with a SIP of water on the morning of surgery: ____CARVEDILOL, DULOXETINE, HYDROXYZINE DO NOT STOP ANY OF YOUR OTHER PRESCRIPTION MEDICATIONS PRIOR TO SURGERY EXCEPT THE FOLLOWING Hold all vitamins and supplements for 3 days per anesthesiologist.- LAST DOSE 06/08/24. Please no make-up, nail belgian, hairspray, perfume, deodorant, or body powder the day of surgery.? No jewelry (including any body piercings) or valuables the day of surgery, leave them at home.? Please take a shower or bath the night before, or the morning of, surgery with an antibacterial soap.? Wear comfortable, loose fitting clothing.? - Jewelry must be removed prior to entering the operating room.? Rings and piercings that are not removed may be cut off. - The hospital will not accept responsibility for valuables.? - Please leave all valuables, including medications, at home the day of surgery. If you are going home after surgery, a licensed local company truck driver must drive you home.? - NO public transportation without another adult if you receive anesthesia. - We recommend that an adult stay with you for 24 hours following discharge. - We also recommend that you do not drive, make important decision, drink alcoholic beverages, or take any drugs that were not prescribed by your health care provider for at least 24 hours after your discharge time. Follow any additional instructions given to you from your surgeon. Telephone instructions given to ___[id number] and asked if any additional questions and then verbalized understanding. Patient advised to call surgeon office or pre surgery nurse liaison [phone] if any additional questions.
--- NOTE | 2024-06-05 12:09 | PM.HPGS ---
History of Present Illness History of Present Illness Consent: Risks, benefits, and alternatives have been discussed and questions answered. Patient agrees to proceed with procedure. Chief complaint: urolithiasis Narrative: Dasia Hernandez is a 83 year old female known to me with a chronic indwelling right ureteral stent is management for large stone burden and medically unfit for definitive intervention. She is overdue for stent change admitted now with an apparent urinary tract infection. In addition to the stent she has an indwelling suprapubic catheter. She is currently awake and denies any significant pain. Review of Systems Review of Systems: All systems reviewed & are unremarkable except as noted in HPI and below PMFSH Past Medical History Medical History Anemia, chronic disease Aortic stenosis Reportedly she has severe aortic stenosis and is followed by a coding spec in [place]. Apparently she has been deemed not a surgical candidate at this time due to her other medical conditions. Brain aneurysm Chronic anticoagulation Chronic kidney disease, stage 4 (severe) Chronic obstructive pulmonary disease Colonization with multidrug-resistant bacteria Urine cultures over the years have grown ESBL E coli, multidrug resistant Proteus mirabilis, and fluoroquinolone resistant Pseudomonas aeruginosa. 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 History of hysterectomy Family History Family History Father Acute myocardial infarction Social History Social History Social History: Healthcare power of deputy county attorney: Arnulfo Acosta ([phone]). Code status: Modified code, no CPR. Smoking packs per day: 1 Smoking cigarettes per day: 20.0 Years smoked: 20 Smoking pack-years: 20.00 Smoking status: Never smoker Tobacco type: cigarettes Second hand tobacco smoke exposure: No Additional smoking assessment comments: SON-IN-LAW UNSURE OF SMOKING CESSATION DATE OR AMT IN PAST Alcohol intake: never Substance use: never Substance use type: does not use Do You Feel Safe in your Home?: Yes Lack of Transportation: No Lack of Food: Never True Current Housing: I Have Housing Concerned About Future Housing: No Difficulty Paying Gas/Electric Bills: No Difficulty Paying for Meds: No Currently Unemployed: No Education: Bachelor's Degree Difficulty w/ Childcare or Family Care: No Living arrangements: with family Additional living arrangements comments: DAUGHTER & ITZEL-DON 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 Spiritual care concerns: No Meds Home Medications and Allergies Home Medications ?Medication ?Instructions ?Recorded ?Confirmed ?Type calcium 600 mg (as carbonate)-vit 1 tablet PO BID 09/02/19 06/02/24 History D3 20 mcg (800 unit) chewable tablet (Caltrate plus D) carvedilol 6.25 mg tablet (Coreg) 6.25 mg PO Q12HR 30 days #60 tabs 09/09/19 06/02/24 Rx ascorbic acid (vitamin C) 500 mg 500 mg PO DAILY 03/30/21 06/02/24 History tablet folic acid 1 mg tablet 1 mg PO DAILY 03/30/21 06/02/24 History multivitamin 1 tablet PO DAILY 12/14/21 06/02/24 History hydroxyzine HCl 25 mg tablet 25 mg PO TID 03/27/23 06/02/24 History duloxetine 60 mg capsule,delayed 60 mg PO DAILY 11/18/23 06/02/24 History release nystatin 100,000 unit/gram topical 1 applic topical BID 11/18/23 06/02/24 History powder dapagliflozin propanediol 5 mg 5 mg PO DAILY 12/21/23 06/02/24 History tablet (Farxiga) docusate sodium 100 mg capsule 100 mg PO DAILY 12/21/23 06/02/24 History furosemide 40 mg tablet 40 mg PO DAILY 12/21/23 06/02/24 History nystatin 100,000 unit/gram topical 1 applic topical Q12H 12/21/23 06/02/24 History powder (Klayesta) pantoprazole 40 mg tablet,delayed 40 mg PO HS 12/21/23 06/02/24 History release acetaminophen 500 mg tablet 500 mg PO Q6H PRN pain 06/02/24 06/02/24 History (Acetaminophen Pain Relief) Allergies Allergy/AdvReac Type Severity Reaction Status Date / Time Sulfa (Sulfonamide Allergy Severe rash Verified 06/02/24 13:42 Antibiotics) phenytoin (From Dilantin) Allergy Mild Hives Verified 06/02/24 13:42 pregabalin (From Lyrica) AdvReac Unknown DIZZY, Verified 06/02/24 13:42 SEDATED Exam Const: General: no acute distress Resp: Effort & Inspection: normal respiratory effort GI: Inspection: non-distended GI Palp: No abdominal tenderness and No Guarding due to palpation present (GI) Auscultation: normal bowel sounds Assessment and Plan Assessment and plan (1) Right renal stone: Code(s): N20.0 - Calculus of kidney Status: Acute (2) Hydronephrosis of right kidney: Code(s): N13.30 - Unspecified hydronephrosis Status: Chronic (3) Urinary retention: Code(s): R33.9 - Retention of urine, unspecified Status: Chronic
--- NOTE | ~2024-06-12 | XR_ITS ---
EXAMINATION: XR stent kub - surgery DATE: 06/12/2024 09:07 INDICATION: Right internal ureteral stent placement TECHNIQUE: Fluoroscopic images from a right internal ureteral stent placement are submitted for dima dawn 173 seconds of fluoroscopy time. 6 fluoroscopic images. FINDINGS: There is a right double-J internal ureteral stent projecting in expected position, with proximal [place] loop at the level of the renal pelvis and distal loop in the pelvis within the bladder lumen. IMPRESSION: 1. Right internal ureteral stent placement. Please refer to real-time procedural findings for concepcion tanner. Reviewed, dictated and finalized at location A. IMPRESSION: 1. Right internal ureteral stent placement. Please refer to real-time procedu ral findings for details.
--- OUTSIDE RECORDS SUMMARY | 2024-06-12 01:17 | XMS_ITS | Encounter Summary ---
Author Organization [facility] Address 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
--- OUTSIDE RECORDS SUMMARY | 2024-06-12 01:17 | XMS_ITS | Clinical Summary ---
Author Organization [facility] Address [address] [place] [address] Care Team Providers Care Architectural Practice Manager Name Role Phone Michele Leo MD Primary Care Provider [phone] Source Comments [facility],non-owned Affiliates and Associated Physician Practices is amultiple site organization consisting of ambulatory clinics and hospital sitesin [place], [place], [place] and [place]. This disclosure is being madepursuant to the Care Everywhere program and may not contain all information available regarding this patient. Last updated 17.[facility] Allergies Active Allergy Reactions Criticality Noted Date Comments Kdc:Yellow Dye+Phenytoin Shortness of Breath High Sulfa Drugs Shortness of Breath High Active Problems Problem Noted Date Diagnosed Date Spinal stenosis of lumbar re gion with neurogenic claudication 05/13/2012 Dorsalgia 10/25/2011 Family History Medical History Relation Name Comments Heart Disease Father Tuberculosis Father Heart Disease Mother Relation Name Status Comments Father Mother Social History Tobacco Use Types Packs/Day Years Used Date Smoking Tobacco: Former Cigarettes Alcohol Use Standard Drinks/Week Comments Yes 0 (1 standard drink = 0.6 oz pur e alcohol) Sex and Gender Information Value Date Recorded Sex Assigned at Not on file Gender Identity Not on file Sexual Orientation Not on file Last Filed Vital Signs Vital Sign Reading Time Taken Comments Blood Pressure 144/82 11/25/2012 1:15 PM CDT Pulse - - Temperature - - Respiratory Rate - - Oxygen Saturation - - Inhaled Oxygen Concentration - - Weight 124.7 kg (275 lb) 11/25/2012 1:15 PM CDT Height 152.4 cm (5') 11/25/2012 1:15 PM CDT Body Mass Index 53.71 11/25/2012 1:15 PM CDT Plan of Treatment Health Maintenance Due Date Last Done Comments BONE DENSITY TESTING 1940 DTAP/TDAP/TD VACCINES (1 - Tdap) 12/14/1959 PNEUMOCOCCAL VACCINE 50+ (1 of 1 - PCV) 1990 ZOSTER VACCINE (1 of 2) 1990 Respiratory Syncytial Virus (RSV) Vaccine Pt: or over 60 yrs (1 - 1-dose 75+ series) 12/14/2015 COVID-19 VACCINE ( - 2023-2 5 season) 2023 DEPRESSION SCREENING 03/05/2024 INFLUENZA VACCINE (Season Ended) 2024 HEPATITIS B VACCINE Aged Out No longe r eligible based on patient's age to complete this topic HIB VACCINE Aged Out No longer eligi ble based on patient's age to complete this topic HPV VACCINE Aged Out No longer eligi ble based on patient's age to complete this topic MENINGOCOCCAL (Group B) VACC INE SHARED DECISION-MAKING Aged Out No longer eligibl e based on patient's age to complete this topic MENINGOCOCCAL GROUPS A/C/Y/W VACCINE Aged Out No longer eligible b ased on patient's age to complete this topic Care Teams Architectural Practice Manager Relationship Specialty Start Date End Date Michele Leo MD PCP - General 01/02/08
--- OUTSIDE RECORDS SUMMARY | 2024-06-12 01:17 | XMS_ITS | Patient Health Record ---
Author Organization [facility] Address [address] [address] Care Team Providers Care Machinist First Class Name Role Phone Rosalio Adams Unavailable [phone] REASON FOR REFERRAL No Information Encounters Encounter Location Date Provider Diagnosis [facility] [address] [facility] [address] [place] [address] 12/12/2023 Rosalio Adams PLAN OF TREATMENT No Information
--- OUTSIDE RECORDS SUMMARY | 2024-06-12 01:17 | XMS_ITS | CONTINUITY OF CARE DOCUMENT ---
Author Name loree ralph Address Unknown Organization [facility] Address [address] [place] [address] Phone [phone] Care Team Providers Care Managing Editor Name Role Phone Oneil Rachel MD Unavailable BENJAMIN RATLIFF MD Unavailable ENID MCCLENDON DO Unavailable [phone] PROBLEMS Condition Status Date Provider Notes Sleep apnea active Lisa Vizcarra RN Other symptoms involving car diovascular system active Oneil Rachel MD Family History of Hypertension: active ? Josh Rachel MD Hyperlipidemia active ? Oneil Rachel MD Valvular Heart Disease active ? 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 [facility] active Oneil Rachel MD ENCOUNTERS Date Type Provider Location Encounter Diag nosis - In-person encounter Office Visit Oneil Rachel MD [facility] - In-person encounter Office Visit Oneil Rachel MD [facility] DeconditioningAneurysm of sun'aq of michael- repaired 2002 at [facility] - In-person encounter Office Visit Oneil Rachel MD [facility] - In-person encounter Office Visit Oneil Rachel MD [facility] - In-person encounter Office Visit Oneil Rachel MD [facility] - In-person encounter Office Visit Oneil Rachel MD [facility] Aortic regurgitation- mild to moderateAortic stenosis, mildTricuspid regurgitation, mild - In-person encounter Office Visit Oneil Rachel MD [facility] Aortic stenosis - In-person encounter Office Visit Oneil Rachel MD [facility] - In-person encounter Office Visit Oneil Rachel MD [facility] - In-person encounter Office Visit Oneil Rachel MD [facility] - In-person encounter Office Visit Oneil Rachel MD [facility] Other symptoms involving cardiovascular systemFamily History of Hypertension:HyperlipidemiaV alvular Heart DiseaseHeart murmurAortic regurgitation- mild to moderateAortic stenosis, mildTricuspid regurgitation, mild VITAL SIGNS Date Observation Value Provider Body Mass Index (Ratio) 72.98 kg/m2 Josh Rachel MD blood pressure, cuff size regular Cy mauri Adams blood pressure, diastolic 76 mm[Hg] Joel Adams blood pressure, systolic 132 mm[Hg] Gloria Adams oxygen saturation, oximetry 97 % Cecile Adams respiratory rate E&M 16 /min Cecile Adams pulse rate 83 /min Cecile mishra weight E&M 270 [lb_av] Cecile mishra height E&M 51 [in_i] Cecile mishra blood pressure, cuff size large Christiano Zurita blood pressure, diastolic 70 mm[Hg] Cr fabio Parminder blood pressure, systolic 120 mm[Hg] Cry kyaw Zurita oxygen saturation, oximetry 96 % Payal Zurita respiratory rate E&M 17 /min Payal Zurita pulse rate 106 /min Payal andrews height E&M 51 [in_i] Payal andrews Body Mass Index (Ratio) 67.57 kg/m2 Carlos Plurelissa blood pressure, diastolic 61 mm[Hg] Laureen marioFabiolaromario Thee blood pressure, systolic 125 mm[Hg] Melani Uriasenson oxygen saturation, oximetry 95 % Zoie Kingston respiratory rate E&M 18 /min Fernando Kingston pulse rate 95 /min Zoie vargas weight E&M 250 [lb_av] Zoie Goel nson height E&M 51 [in_i] Zoie Goel nson Body Mass Index (Ratio) 67.03 kg/m2 Carlos Plurelissa blood pressure, cuff size regular Ke rri Ally blood pressure, diastolic 70 mm[Hg] Ke rri Gonzalezer blood pressure, systolic 122 mm[Hg] Juju Canales oxygen saturation, oximetry 98 % Steph Canales respiratory rate E&M 24 /min Steph joshi pulse rate 128 /min Steph Jovanae lder weight E&M 248 [lb_av] Steph Whaleye lder height E&M 51 [in_i] Steph Rodolfonenfe lder Body Mass Index (Ratio) 66.22 kg/m2 Kade Underwodo blood pressure, diastolic 72 mm[Hg] Laureen Kingston blood pressure, systolic 131 mm[Hg] Melani Kingston oxygen saturation, oximetry 92 % Zoie Kingston respiratory rate E&M 18 /min Fernando Kingston pulse rate 91 /min Zoie vargas weight E&M 245 [lb_av] Zoie vargas height E&M 51 [in_i] Zoie vargas blood pressure, cuff size regular Ke rri Gruenenfelder blood pressure, diastolic 73 mm[Hg] Ke rri Gruenenfelder blood pressure, systolic 134 mm[Hg] Ker ri Gruenenfrylieer oxygen saturation, oximetry 95 % Steph Grcarmencitanenfrylieer respiratory rate E&M 18 /min Steph G briceenenfcorrie pulse rate 86 /min Stehp Grcarmencitanewilsone lder height E&M 51 [in_i] Steph Gruenenfe lder Body Mass Index (Ratio) 75.68 kg/m2 Josh Rachel MD blood pressure, diastolic 72 mm[Hg] Laureen Kingston blood pressure, systolic 136 mm[Hg] Melani Kingston oxygen saturation, oximetry 95 % Zoie Kingston respiratory rate E&M 18 /min Fernando Kingston pulse rate 85 /min Zoie vargas weight E&M 280 [lb_av] Zoie Goel nslewis height E&M 51 [in_i] Zoie Goel nslewis blood pressure, diastolic 82 mm[Hg] Ke rri Gruenenfelder blood pressure, systolic 144 mm[Hg] Ker ri Gruenenfelder pulse rate 79 /min Steph Gruenenfe lder oxygen saturation, oximetry 96 % Steph Rodolfonenfcorrie respiratory rate E&M 16 /min Steph G ruenenfelder Body Mass Index (Ratio) 74.06 kg/m2 Lewis stallworth Ally weight E&M 274 [lb_av] Steph Shipleymaricarmenderick elisabet blood pressure, diastolic 70 mm[Hg] Laureen Kingston blood pressure, systolic 137 mm[Hg] Melani Kingston pulse rate 89 /min Zoie vargas oxygen saturation, oximetry 97 % Zoie Kingston respiratory rate E&M 18 /min Fernando Kingston Body Mass Index (Ratio) 69.46 kg/m2 Lisa Kingston weight E&M 257.0 [lb_av] Zoie amato blood pressure, diastolic 75 mm[Hg] Laureen Kingston blood pressure, systolic 166 mm[Hg] Melani Kingston pulse rate 83 /min Zoie vargas oxygen saturation, oximetry 97 % Zoie Kingston respiratory rate E&M 18 /min Fernando Kingston Body Mass Index (Ratio) 69.62 kg/m2 Lisa Kingston weight E&M 257.6 [lb_av] Zoie amato Body Mass Index (Ratio) 70.27 kg/m2 Anea mario Neri blood pressure, diastolic 100 mm[Hg] An eatris Neri blood pressure, systolic 140 mm[Hg] Ane atris Neri pulse rate 89 /min Aneatris Neri oxygen saturation, oximetry 95 % Aneatris Neri respiratory rate E&M 17 /min Aneatri s Neri weight E&M 260 [lb_av] Aneatris Neri height E&M 51 [in_i] William He ALLERGIES Allergy Name Onset Date Reaction Criticality Status SULFA Low Criticality active HISTORY OF MEDICATION USE Medication Status Instructions Dates Provider Indications Com ments ATORVASTATIN CALCIUM 20 MG ORAL TABLET active one tablet daily at bedtime Yolette Collazo FERREX 150 CAPSULE active take 1 tab twice a day Cecile Adams POLY-IRON 150 FORTE 150-25-1 MG-MCG-MG ORAL CAPSULE active take one capsule bid Harini Carrion RN NYSTATIN POWDER active apply to all folds bid Harini Carrion RN NYAMYC [id number] UNIT/GM EXTERNAL POWDER active appy topically bid prn for itching Harini Carrion RN FUROSEMIDE 40 MG ORAL TABLET active take one tablet once daily Harini Carrion RN ENALAPRIL MALEATE 2.5 MG ORAL TABLET active take one tablet once daily Harini Carrion RN CARVEDILOL 12.5 MG ORAL TABLET active take one tablet bid Harini Carrion RN VIVLODEX 10 MG ORAL CAPSULE completed once a day - Zoie Kingston DULOXETINE HCL 30 MG ORAL CAPSULE DELAYED RELEASE PARTICLES active take one pill a day Steph Canales TYLENOL WITH CODEINE #3 TABLET active take one pill as directed Steph Canales METFORMIN HCL 500 MG ORAL TABLET completed once a day - Cecile Adams PHENTERMINE HCL 37.5 MG ORAL CAPSULE completed once daily - Cecile Adams TOPIRAMATE 25 MG ORAL TABLET completed twice daily - Cecile Adams [employer] STOOL SOFTENER CAPSULE active as needed Steph Canales PREDNISONE TABLET completed taper dose 1 more day - Zoie Kingston MOTRIN IB 200 MG ORAL TABLET completed 4 tabs daily - Steph Canales POTASSIUM TABLET completed 99 mg once daily - Zoie Kingston COREG 6.25 MG ORAL TABLET completed 1/2 pill twice a day - Harini Carrion RN VASOTEC 20 MG ORAL TABLET completed ONE TAB.TWICE DAILY - Harini Carrion RN CALCIUM + D TABLET completed - Harini Carrion RN OSTEO BI-FLEX REGULAR STRENGTH TABLET active Aneatris Brown FISH OIL CAPSULE active ONE TAB. DAILY Aneatris Brown MULTIVITAMINS ORAL CAPSULE active ONE TAB. DAILY Aneatris Brown ASPIRIN 81 MG ORAL TABLET active ONE TAB. DAILY Oneil Rachel MD PROAIR HFA 108 (90 Base) MCG/ACT INHALATION AEROSOL SOLUTION completed 2 puffs every 4-6 hours - Steph Canales FUROSEMIDE 20 MG ORAL TABLET completed 1 tab daily - Harini Carrion RN HYDROCODONE-ACET AMINOPHEN 7.5-325 MG ORAL TABLET completed 3 tabs daily as needed - Steph Canales ATORVASTATIN CALCIUM 20 MG ORAL TABLET completed 1 tab daily - Harini Carrion RN SOCIAL HISTORY Date Observation Value Provider social history E&M S moking History: Valerie sorenson is a former smoker. Oneil Rachel MD social history reviewed E&M revi ewed - no changes required Oneil Rachel MD smoking, year quit 1985 Cecile solis smoking, date started 1958 Chacorta Adams smoking history, tot al pack/year 60 Cecile Adams smoking history, tot al pack/day 1/2 Cecile Adams cigarette use yes Cecile gu smoking status Former smoker Cecile rock smoking history, tot al pack/year 60 Harini Carrion RN smoking, year quit 1985 Oneil Rachel MD smoking, date started 1958 Marcio Rachel MD smoking history, tot al pack/year 56 Oneil Rachel MD smoking history, tot al pack/day 1/2 Oneil Rachel MD smoking status Former smoker Oneil riley MD social history E&M S moking History: Valerie sorenson is a former smoker. Oneil Rachel MD social history reviewed E&M revi ewed - no changes required Oneil Rachel MD cigarette use yes Payal Garcia ms social history reviewed E&M revi ewed - no changes required Oneil Rachel MD social history E&M S moking History: Valerie sorenson is a former smoker. Oneil Rachel MD smoking, year quit 1985 Zoie Kingston smoking, date started 1958 Grazyna Kingston smoking history, tot al pack/year 56 Zoie Uriasenson smoking history, tot al pack/day 1/2 Zoie Uriasenson cigarette use yes Zoie amato smoking status Former smoker Zoie Marvin social history reviewed E&M revi ewed - no changes required Oneil Rachel MD social history E&M S moking History: Valerie sorenson is a former smoker. Oneil Rachel MD smoking, year quit 1985 Steph Anneliese graves smoking, date started 1958 Steph Canales smoking history, tot al pack/year 56 Steph Gonzalezer smoking history, tot al pack/day 1/2 Steph Gonzalezer cigarette use yes Steph Jovana [facility] smoking status Former smoker Steph Reynoldsalison mao social history E&M S moking History: Valerei sorenson is a former smoker. Oneil Rachel MD social history reviewed E&M revi ewed - no changes required Oneil Rachel MD smoking, year quit 1985 Zoie Kingston smoking, date started 1958 Grazyna Kingston smoking history, tot al pack/year 56 Zoie Kingston smoking history, tot al pack/day 1/2 Zoie Kingston cigarette use yes Zoie Adonay enson smoking status Former smoker Zoie Marvin number of grandchildren Oneil Rachel MD social history reviewed E&M revi ewed - no changes required Oenil Rachel MD social history E&M S moking History: Valerie sorenson is a former smoker. Oneil Rachel MD smoking, year quit 1986 Steph Coy ely smoking, date started 1958 Steph Sunmayco smoking history, tot al pack/year 56 Steph Sunkhloeer smoking history, tot al pack/day 1/2 Steph Sunkhloeer cigarette use yes Steph Whaley corrie smoking status Former smoker Steph Sun mayco social history E&M S moking History: Valerie sorenson is a former smoker. Oneil Rachel MD social history reviewed E&M revi ewed - no changes required Oneil Rachel MD smoking, year quit 1986 ZoieRomana Kingston smoking, date started 1958 Grazyna Kingston smoking history, tot al pack/year 56 Zoie Uriasenson smoking history, tot al pack/day 1/2 Zoie Uriasenson cigarette use yes Zoie Adonay enson smoking status Former smoker Zoie Marvin social history reviewed E&M revi ewed - no changes required Oneil Rachel MD smoking, year quit 1986 ZoieRomana Kingston smoking, date started 1958 Grazyna marlene Kingston smoking history, tot al pack/year 56 Zoie Uriasenson smoking history, tot al pack/day 1/2 Zoie Uriasenson cigarette use yes Zoie Adonay enson smoking status Former smoker Zoie Marvin smoking history, tot al pack/year 56 Lisa Vizcarra RN social history reviewed E&M revi ewed - no changes required Oneil Rachel MD smoking, year quit 1985 Zoie Kingston smoking, date started 1958 Grazyna Kingston smoking history, tot al pack/day 1/2 Zoie Kingston cigarette use yes Zoie amato smoking status Former smoker Zoie Marvin social history reviewed E&M revi ewed - no changes required Oneil Rachel MD smoking, year quit 1985 William He smoking, date started 1958 Aneatr is Neri smoking history, tot al pack/day 1/2 Aneatris Neri cigarette use yes Aneatrena He smoking status Former smoker Aneatrena Bro wn FAMILY HISTORY Family Member Condition Mother Family History of Hy pertension: Father Family History of Co ronary Artery Disease: INSURANCE PROVIDERS Payer name Policy type / Coverage type [place] [employer] party ID [facility] MEDICARE ADVANTAGE (PPO) Other [id number] ADVANCE DIRECTIVES Name Date DISCUSSED - NO DECISION MADE TREATMENT PLAN Date Name Performer Cardiology follow up : O rders: 9 9215 HIGH Complex (CPT-15891) C omplete Echo (CPT-77276) Oneil Rachel MD Cardiology follow up :Has worked with rehab. Is up to 68 feet in ambulation. Oneil Rachel MD Cardiology follow up : N egative workup. Sleeps in recliner. Has ANNE device but only uses it while in bed. Advised her to use it in recliner. Oneil Rachel MD Cardiology follow up : A S on echo. Will check. Needs SBE prophylaxis. Oneil Rachel MD Cardiology follow up :Echo 05/30/18 Conclusions: 1 . Technically difficult study, limited views secondary to poor acoustic windows. Patient scanned erect i n chair and informed of the limitations. Interpretation is based on available limited views. Normal left v entricular systolic function. Normal left ventricular size. Normal left ventricular wall thickness. There i s E to A wave reversal consistent with impaired LV relaxation. Left ventricular ejection fraction is e stimated at 65 %. 2 . Normal right ventricular size. Normal right ventricular systolic function. 3 . Moderate aortic stenosis. Moderate aortic valve regurgitation. Peak AV velocity: 3.17 m/s. The A ortic Valve Peak Gradient is 40.20 mmHg. The Aortic Valve Mean Gradient is 16.60 mmHg. The BARRY is 1 .1 cm2. Oneil Rachel MD Cardiology follow up :Echo 05/30/18 Conclusions: 1 . Technically difficult study, limited views secondary to poor acoustic windows. Patient scanned erect i n chair and informed of the limitations. Interpretation is based on available limited views. Normal left v entricular systolic function. Normal left ventricular size. Normal left ventricular wall thickness. There i s E to A wave reversal consistent with impaired LV relaxation. Left ventricular ejection fraction is e stimated at 65 %. 2 . Normal right ventricular size. Normal right ventricular systolic function. 3 . Moderate aortic stenosis. Moderate aortic valve regurgitation. Peak AV velocity: 3.17 m/s. The A ortic Valve Peak Gradient is 40.20 mmHg. The Aortic Valve Mean Gradient is 16.60 mmHg. The BARRY is 1 .1 cm2. Oneil Rachel MD Cardiology:Prior management at [facility]. Oneil Rachel MD Cardiology:Severely deconditioned. Does not ambulate much at all., hence has not experienced much in the way of Sx of . Oneil Rachel MD Cardiology: N egative workup. Sleeps in recliner. Has ANNE device but only uses it while in bed. Advised her to use it in recliner. Oneil Rachel MD Cardiology: Casie duenas lipid profile. H er updated medication list for this problem includes: Atorvastatin Calcium 20 Mg Oral Tablet (Atorvastatin calcium) ..... 1 tab daily Oneil Rachel MD Cardiology:Reviewed with her possibility of having TAVR at [facility]. At present, wants to defer since her level of activity is somewhat limited and hence has not really noticed Sx. Echo 06/04/2018 Conclusions: 1 . Technically difficult study, limited views secondary to poor acoustic windows. Patient scanned erect i n chair and informed of the limitations. Interpretation is based on available limited views. Normal left v entricular systolic function. Normal left ventricular size. Normal left ventricular wall thickness. There i s E to A wave reversal consistent with impaired LV relaxation. Left ventricular ejection fraction is e stimated at 65 %. 2 . Normal right ventricular size. Normal right ventricular systolic function. 3 . Moderate aortic stenosis. Moderate aortic valve regurgitation. Peak AV velocity: 3.17 m/s. The A ortic Valve Peak Gradient is 40.20 mmHg. The Aortic Valve Mean Gradient is 16.60 mmHg. The BARRY is 1 .1 cm2. Oneil Rachel MD Cardiology: C onclusions: 1 . Technically difficult study, limited views secondary to poor acoustic windows. Patient scanned erect i n chair and informed of the limitations. Interpretation is based on available limited views. Normal left v entricular systolic function. Normal left ventricular size. Normal left ventricular wall thickness. There i s E to A wave reversal consistent with impaired LV relaxation. Left ventricular ejection fraction is e stimated at 65 %. 2 . Normal right ventricular size. Normal right ventricular systolic function. 3 . Moderate aortic stenosis. Moderate aortic valve regurgitation. Peak AV velocity: 3.17 m/s. The A ortic Valve Peak Gradient is 40.20 mmHg. The Aortic Valve Mean Gradient is 16.60 mmHg. The BARRY is 1 .1 cm2.Mild Oneil Rachel MD Cardiology: on ech o. Will check. Needs SBE prophylaxis. Oneil Rachel MD Cardiology:Check lip id profile. H er updated medication list for this problem includes: Atorvastatin Calcium 20 Mg Oral Tablet (Atorvastatin calcium) ..... 1 tab daily Oneil Rachel MD Cardiology:Order ech o. L ast study: M ild aortic stenosis. Aortic cusp mobility appears mildly restricted and calcified . Mild aortic valve r egurgitation. Peak AV velocity: 2.30 m/s. The Aortic Valve Peak Gradient is 22.00 mmHg. The Aortic V alve Mean Gradient is 14.00 mmHg. The BARRY is 1.4 cm2 based on echo 11/10/16 Oneil Rachel MD Cardiology:Negative workup. Sleeps in recliner. Has ANNE device but only uses it while in bed. Advised her to use it in recliner. Oneil Rachel MD Cardiology Follow up Oneil diggs MD Cardiology Follow up Oneil diggs MD Cardiology Follow up :Needs reassessment. She is sleeping on a recliner now and thinks her ANNE has resolved. Will check sleep study. Oneil Rachel MD Cardiology Follow up : M ild aortic stenosis. Aortic cusp mobility appears mildly restricted and calcified . Mild aortic valve r egurgitation. Peak AV velocity: 2.30 m/s. The Aortic Valve Peak Gradient is 22.00 mmHg. The Aortic V alve Mean Gradient is 14.00 mmHg. The BARRY is 1.4 cm2 based on echo 11/10/16 Oneil Rachel MD Cardiology Oneil Rachel MD Cardiology: U sing CPAP. The patient is actively using CPAP on a regular basis. She has been benefiting from therapy and should continue use. Oneil Rachel MD Cardiology:Mild Oneil Rachel MD Cardiology:Mild aort ic stenosis. Aortic cusp mobility appears mildly restricted and calcified . Mild aortic valve r egurgitation. Peak AV velocity: 2.30 m/s. The Aortic Valve Peak Gradient is 22.00 mmHg. The Aortic V alve Mean Gradient is 14.00 mmHg. The BARRY is 1.4 cm2 based on echo 11/10/16 Oneil Rachel MD Cardiology Follow up :Using CPAP. The patient is actively using CPAP on a regular basis. She has been benefiting from therapy and should continue use. Oneil Rachel MD Cardiology Follow up Oneil diggs MD Cardiology Follow up :Repeat ech o. Oneil Rachel MD Cardiology Follow up :BP stable. On after load reduction. Oneil Rachel MD Cardiology Oneil Rachel MD Cardiology Oneil Rachel MD Cardiology Follow up :CPAP Monica Rachel MD Cardiology Follow up : H er updated medication list for this problem includes: Atorvastatin Calcium 20 Mg Oral Tabs (Atorvastatin calcium) ..... 1 tab daily Oneil Rachel MD Cardiology Follow up :INCREASED VASOTEC TO 20MG BID C HECK ECHO TO EVAL LV FXN Oneil Rachel MD Cardiology Follow up :INCREASED VASOTEC TO 20MG BID Oneil Rachel MD Cardiology Jocelyne Ventimigl ia [facility] Cardiology:Sleep tit ration study scheduled for next week Jocelyne Ventimiglia [facility] Cardiology: H er updated medication list for this problem includes: Atorvastatin Calcium 20 Mg Oral Tabs (Atorvastatin calcium) ..... 1 tab daily Jocelyne Ventimiglia [facility] Cardiology Jocelyne Ventimigl ia [facility] Cardiology Oneil Rachel MD Cardiology Oneil Rachel MD Cardiology Oneil Rachel MD Cardiology: H er updated medication list for this problem includes: Furosemide 20 Mg Tabs (Furosemide) ..... 1 tab daily Oneil Rachel MD Cardiology Oneil Rachel MD Date Name Complete Echo URINALYSIS, RANDOM, MICROALB/CREATININE HEMOGLOBIN A1c BASIC METABOLIC PANE L W/EGFR Complete Echo Carotid Duplex Bilat eral Sleep Study Home LIPID PANEL B TYPE NATRIURETIC P EPTIDE (BNP) PROBNP, N TERMINAL COMPREHENSIVE METABO LIC PANEL, W/EGFR Complete Echo Complete Echo Carotid Duplex Bilat eral Sleep Study Home HISTORY OF PROCEDURES Procedure Date Procedure Name Provider Procedure Notes S tatus EKG Oneil Rachel MD completed EKG Oneil Rachel MD completed EKG Oneil Rachel MD completed SNOMED-CT: 229882507 [id number] Current Medications Documented Oneil Rachel MD completed SNOMED-CT: [id number] Current Medications Documented Oneil Rachel MD completed EKG Oneil Rachel MD completed SNOMED-CT: [id number] 377905 Current Medications Documented Oneil Rachel MD completed SNOMED-CT: [id number] 338531 Current Medications Documented Oneil Rachel MD completed SNOMED-CT: [id number] 835060 Current Medications Documented Oneil Rachel MD completed EKG Oneil Rachel MD completed
--- OUTSIDE RECORDS SUMMARY | 2024-06-12 01:18 | XMS_ITS | Clinical Summary ---
Author Organization [facility] Facility Address [address] [address] Care Team Providers Care Licensed Psychologist Director Name Role Phone Malena Gallardo MD Primary Care Provider Unaviktoria ilava Social History Tobacco Use Types Packs/Day Years Used Date Smoking Tobacco: Never Alcohol Use Standard Drinks/Week Comments Yes 0 (1 standard drink = 0.6 oz pure alcohol) Alcoholic Drinks/day: Occasional social drink Comments Unknown Sex and Gender Information Value Date Recorded Sex Assigned at Not on file Legal Sex Female 5:00 PM EDT Gender Identity Not on file Sexual Orientation Not on file Last Filed Vital Signs Vital Sign Reading Time Taken Comments Blood Pressure 180/80 05/04/2020 12:00 PM [employer] Pulse 116 05/04/2020 12:00 PM [employer] Temperature - - Respiratory Rate 20 05/04/2020 12:00 PM [employer] Oxygen Saturation 86% 05/04/2020 12:00 PM [employer] Inhaled Oxygen Concentration - - Weight - - Height 142.2 cm (4' 8) 05/04/2020 12:00 PM [employer] Body Mass Index - - Plan of Treatment Health Maintenance Due Date Last Done Comments Influenza Vaccine (Season Ended) 2024 2018, 01/07/2016, 12/10/2014, Additional history exists Pneumococcal Vaccine: 65+ Years Completed 11/14/2018, 12/10/2014 Hepatitis B Vaccine Aged Out No longe r eligible based on patient's age to complete this topic Insurance [facility] MEDICARE Care Teams Licensed Psychologist Director Relationship Specialty [place] [address] [address] PCP - General Internal Medicine 12/20/20
--- OUTSIDE RECORDS SUMMARY | 2024-06-12 01:18 | XMS_ITS ---
Author Organization [facility] Address [address] [place] [address] Care Team Providers Care Animated Cartoons Painter Name Role Phone Rosalio Adams Unavailable [phone] Encounters Encounter Location Date Provider Diagnosis [place] [facility] [address] [facility] [address] [place] [address] 12/12/2023 Rosalio Adams PLAN OF TREATMENT No Information Progress Notes * Mariana HERNANDEZOB:1940 (83 yo F)Acc No.[id number]:12/12/2023 Progress Notes Patient: Dasia HERNANDEZ Provider: MD STEVIE, Lilly.Alonso.C.P, F.A.S.N. :1940 Age:82 Y Sex:Female Date:12/12/2023 Address:[address] [place] [address] Subjective: * Chief Complaints: * * Medical History: Objective: Assessment: Plan: * Treatment: * Billing Information: * Visit Code: * Procedure Codes: * Sign off status: Pending * Provider: MD STEVIE, F.Alonso.C.P, F.A.S.N. Date: 12/12/2023
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
--- OUTSIDE RECORDS SUMMARY | 2024-06-12 01:18 | XMS_ITS | Clinical Summary ---
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
--- NOTE | 2024-06-12 06:18 | WPDHPUPDATE1 ---
History and Physical Update Update Date/Time: 06/12/24 06:18 History and Physical has been reviewed, including an updated exam of the patient. There are NO changes in the patient's condition. Risks, benefits, and alternatives have been discussed and questions answered. Patient agrees to proceed with procedure.
[2024-06-12 07:10] VITALS: BP 133/93; PULSE 89; RESP 18; TEMP 37.1; O2SAT 100
--- NOTE | 2024-06-12 07:31 | P.PNAN_ITS ---
Anes - Initial Pre Proc Eval Procedure: Operation Date: 06/12/24 08:30 Proposed Procedures p Cystoscopy with Right Ureteral Stent Exchange - Richard Camargo MD Date/Time: 06/12/24 07:31 Surgeon: Richard Camargo MD Pre Op Diagnosis: urolithiasis Patient Data Age: 83 Gender: F Height: 1.42 m Weight: 91 kg Allergies Allergy/AdvReac Type Severity Reaction Status Date / Time Sulfa (Sulfonamide Allergy Severe rash Verified 06/02/24 13:42 Antibiotics) phenytoin (From Dilantin) Allergy Mild Hives Verified 06/02/24 13:42 pregabalin (From Lyrica) AdvReac Unknown DIZZY, Verified 06/02/24 13:42 SEDATED Home Medications ?Medication ?Instructions ?Recorded ?Confirmed ?Type calcium 600 mg (as carbonate)-vit 1 tablet PO BID 09/02/19 06/02/24 History D3 20 mcg (800 unit) chewable tablet (Caltrate plus D) carvedilol 6.25 mg tablet (Coreg) 6.25 mg PO Q12HR 30 days #60 tabs 09/09/19 06/02/24 Rx ascorbic acid (vitamin C) 500 mg 500 mg PO DAILY 03/30/21 06/02/24 History tablet folic acid 1 mg tablet 1 mg PO DAILY 03/30/21 06/02/24 History multivitamin 1 tablet PO DAILY 12/14/21 06/02/24 History hydroxyzine HCl 25 mg tablet 25 mg PO TID 03/27/23 06/02/24 History duloxetine 60 mg capsule,delayed 60 mg PO DAILY 11/18/23 06/02/24 History release nystatin 100,000 unit/gram topical 1 applic topical BID 11/18/23 06/02/24 History powder dapagliflozin propanediol 5 mg 5 mg PO DAILY 12/21/23 06/02/24 History tablet (Farxiga) docusate sodium 100 mg capsule 100 mg PO DAILY 12/21/23 06/02/24 History furosemide 40 mg tablet 40 mg PO DAILY 12/21/23 06/02/24 History nystatin 100,000 unit/gram topical 1 applic topical Q12H 12/21/23 06/02/24 History powder (Klayesta) pantoprazole 40 mg tablet,delayed 40 mg PO HS 12/21/23 06/02/24 History release acetaminophen 500 mg tablet 500 mg PO Q6H PRN pain 06/02/24 06/02/24 History (Acetaminophen Pain Relief) Patient hx anesthesia problems: none Family hx anesthesia problems: none Results Review: All pre-operative results and documents have been reviewed as part of the pre- operative evaluation. [facility] Past Medical History Medical History Diastolic heart failure Colonization with multidrug-resistant bacteria Urine cultures over the years have grown ESBL E coli, multidrug resistant Proteus mirabilis, and fluoroquinolone resistant Pseudomonas aeruginosa. 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 Apparently she has been deemed not a surgical candidate at this time due to her other medical conditions. Hypertension Surgical History Surgical History History of craniotomy Either for an aneurysm or AVM. 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 Code status: Modified code, no CPR. Smoking packs per day: 1 Smoking cigarettes per day: 20.0 Years smoked: 20 Smoking pack-years: 20.00 Smoking status: Never smoker Tobacco type: cigarettes Second hand tobacco smoke exposure: No Additional smoking assessment comments: SON-IN-LAW UNSURE OF SMOKING CESSATION DATE OR AMT IN PAST Alcohol intake: never Substance use: never Substance use type: does not use Do You Feel Safe in your Home?: Yes Lack of Transportation: No Lack of Food: Never True Current Housing: I Have Housing Concerned About Future Housing: No Difficulty Paying Gas/Electric Bills: No Difficulty Paying for Meds: No Currently Unemployed: No Education: Bachelor's Degree Difficulty w/ Childcare or Family Care: No Living arrangements: with family Additional living arrangements comments: DAUGHTER & ITZEL-DON Occupation/Education: 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 Spiritual care concerns: No Anes - Eval Final PreProcedure Day of Procedure 06/12/24 07:31 Patient weight: morbidly obese Lungs: normal air movement Airway: Mallampati scale class II and special considerations (Missing many teeth, none loose. ) Neurological: alert and oriented Last oral intake: >/= 8 hours ASA classification: IV Emergent: no Anesthetic plan: proceed Anesthesia type and monitoring: general GIVS and standard monitoring Results Review: All pre-operative results and documents have been reviewed as part of the pre- operative evaluation. Complicated med hx, reviewed thoroughly. Pt for long term care pharmacist DNR, goal directed therapy discussed option 3 w pt and daughter and signed as appropriate. Informed Consent: The patient's anesthetic plan and its attendant risks and benefits were discussed with the patient/family/POA. Questions were solicited and answers provided to the satisfaction of the patient/family/POA.
[2024-06-12] MEDS: LACTATED RINGERS 1,000 ML 30 ML IV CONT (07:40)
[2024-06-12 07:53] LABS: Hematocrit 34.7 % (37.0-47.0); Hemoglobin 10.5 g/dL (12.0-15.0)
[2024-06-12] MEDS: ceFAZolin 2 GM/D5W 50 ML 2 GM/50 ML BAG IVPB (08:13)
[2024-06-12 08:14] LABS: Anion Gap 13 mmol/L (4-12); Blood Urea Nitrogen 44 mg/dL (7-17); Calcium 8.8 mg/dL (8.4-10.2); Carbon Dioxide 16 mmol/L (22-30); Chloride 107 mmol/L (98-107); Estimated Glomerular Filt Rate 13; Glucose 110 mg/dL (65-110); Potassium 4.4 mmol/L (3.4-5.0); Sodium 136 mmol/L (137-145)
[2024-06-12] MEDS: LIDOCAINE 2% GEL UROJET 10 ML PKG MUCOUS MEM (08:45)
[2024-06-12 08:47] LABS: INR 1.1; Prothrombin Time 14.4 Seconds (11.1-14.7)
[2024-06-12 08:49] LABS: Partial Thromboplastin Time 29.1 Seconds (22.3-36.8)
--- NOTE | 2024-06-12 08:56 | W.PM.PROC2 ---
Procedure Note - Detailed Date of Procedure 06/12/24 Pre-op Diagnosis Neurogenic bladder, right hydronephrosis Post-op Diagnosis Same Procedure Performed Cystoscopy, change suprapubic catheter, exchange right ureteral stent Surgeon Richard Camargo MD Anesthesia MAC Description of Procedure Patient is in the operative suite where she was prepped and draped in routine sterile fashion while a supine position. She has essentially a frozen pelvis which makes dorsal lithotomy positioning impractical/and possible. I made an attempt to place a flexible cystoscope via urethra without success. I opted to exchange her stents to her suprapubic tract. A 16 F flexible cystoscope was guided into her bladder. I could identify the indwelling ureteral stent which had minimal incrustation. It was brought to the skin where 0.035 in glidewire was advanced in the renal pelvis and a new 4.8 F variable length stent was positioned with the proximal coil in renal pelvis and distal coil in the bladder. New 20 F suprapubic catheter was appropriately positioned. We will plan to perform the same procedure and 6 months.
[2024-06-12 08:58] VITALS: BP 88/62; PULSE 86; RESP 12; O2SAT 100
[2024-06-12 09:28] VITALS: BP 87/54; PULSE 88
== END 2024-06-12 09:54 | disposition home or self-care (01) ==
PROVIDERS: Anesthesiology; PCP Nurse Practitioner Family; Referring Provider Internal Medicine; Visit Provider Urology
PROC: (CPT 52310; principal; 2024-06-12 08:30)
DX: N31.9 Neuromuscular dysfunction of bladder, unspecified (principal); N13.30 Unspecified hydronephrosis; I13.0 Hypertensive heart and chronic kidney disease with heart failure and stage 1 through stage 4 chronic kidney disease, or unspecified chronic kidney disease; I50.30 Unspecified diastolic (congestive) heart failure; D63.1 Anemia in chronic kidney disease; N18.4 Chronic kidney disease, stage 4 (severe); J44.9 Chronic obstructive pulmonary disease, unspecified; G47.33 Obstructive sleep apnea (adult) (pediatric); F41.8 Other specified anxiety disorders; I35.0 Nonrheumatic aortic (valve) stenosis; D50.9 Iron deficiency anemia, unspecified; E66.01 Morbid (severe) obesity due to excess calories; Z68.34 Body mass index [BMI] 34.0-34.9, adult
CPT/HCPCS: 52332; 51705; 36415; 80048; 85014; 85018; 85610; 85730; C1769; C2617; C2627; J0690; J2003; J2704; J7120

== ENCOUNTER 2024-10-14 17:35 | Inpatient (IN) | payer MEDICARE, SELFPAY ==
--- NOTE | ~2024-10-14 | CT_ITS ---
History: Altered mental status PROCEDURE: CT head without contrast. COMPARISON: 12/31/2023 TECHNIQUE: Axial imaging of the head performed from the skull base to the vertex without IV contrast. Sagittal a nd coronal reformations obtained. DLP: 681 mGy-cm FINDINGS: The ventricles are enlarged. The dilatation of the ventricles is proportional to the degree of sulcal prominence, not uncommon in the senescent brain. Encephalomalacia and gliosis within the right frontal lobe, unchanged from prior. Decreased attenuation is identified within the periventricular white matter, likely secondary to micr ovascular ischemic disease, in a patient of this age. There is no mass, mass effect or midline shift. There is no abnormal extra-axial fluid collection or intracranial hemorrhage. Visualized paranasal sinuses are clear. The mastoid air cells are well aerated. No acute displaced fractures within the overlying cranium. Post right frontotemporal craniotomy. Impression: No acute intracranial hemorrhage or suspicious mass effect. Post right frontotemporal lobe infarction Reviewed, dictated and finalized at location A. Impression: No acute intracranial hemorrhage or suspicious mass effect. Post right frontotemporal lobe infarction
--- NOTE | ~2024-10-14 | CT_ITS ---
EXAMINATION: CT chest abdomen pelvis wo con DATE: 10/15/2024 7:25 CDT INDICATION: Sepsis TECHNIQUE: Computed tomography (CT) of the chest, abdomen, and pelvis was performed without intraveno us contrast. The dose-length product was 971.27 mGy-cm. Automated exposure control and iterative reuben nstruction technique were employed. COMPARISON: CT dated 12/21/2023 FINDINGS: CHEST CT: There is atherosclerosis of the aorta and coronary arteries. There are calcified granulomas of the major ng parenchyma. There are patchy groundglass opacities with areas of nodularity in the lower lobes, le ft greater than right, suspicious for pneumonia. No thoracic lymphadenopathy. There is atherosclerosi s of the aorta without aneurysm. ABDOMEN/PELVIS CT: There is suggestion of a hypodense mass posterior segment right hepatic lobe with amorphous punctate calcifications. This mass is poorly defined without contrast. Findings suspicious for primary hepatoc ellular carcinoma versus metastatic disease. The spleen, pancreas, adrenal glands are unremarkable. T here is renal atrophy. There are bilateral nonobstructing renal stones. There is a right internal ure teral stent in expected position. No definite ureteral stones. Gallstones with mild gallbladder distention. Moderate fecal loading of the distal colon and rectum. N o significant vascular abnormality. There is a suprapubic catheter. Bladder is decompressed. 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 Severe osteoarthritis of the right hip. There is dextrocurvature of the thoracolumbar spine. There is fusion at multiple levels of the lumbar spine . There is grade 1 degenerative spondylolisthesis at L4-5. There is diffuse idiopathic skeletal hyper ostosis (DISH) of the thoracic and lumbar spine. There is severe osteoarthritis of the humeral joints bilaterally, partially visualized IMPRESSION: 1. Patchy groundglass opacities with areas of nodularity in the lower lobes primarily, consistent wit h pneumonia. 2: Ill-defined hypodense liver mass right hepatic lobe with associated punctate calcifications. Findings suspicious for primary hepatocellular carcinoma or metastatic disease. Consider correlation with con trast-enhanced CT abdomen or MRI abdomen. 3: Right hydronephrosis with internal ureteral stent in expected position. 4: Nonobstructing bilateral nephrolithiasis. 5: Cholelithiasis with gallbladder distention. Reviewed, dictated and finalized at location A. IMPRESSION: 1. Patchy groundglass opacities with areas of nodularity in the lower lobes tomas shadi, consistent with pneumonia. 2: Ill-defined hypodense liver mass right hepatic lobe with associated punctate ca lcifications. Findings suspicious for primary hepatocellular carcinoma or metas tatic disease. Consider correlation with contrast-enhanced CT abdomen or MRI ab dom. 3: Right hydronephrosis with internal ureteral stent in expected position. 4: Nonobstructing bilateral nephrolithiasis. 5: Cholelithiasis with gallbladder distention.
[2024-10-14 17:38] VITALS: BP 110/68; PULSE 115; RESP 13; TEMP 36.4; O2SAT 98
--- NOTE | 2024-10-14 17:48 | ED_ITS ---
HPI - Altered Mental Status General Chief Complaint: Altered Mental Status <Araceli Yinyara YU, DO - Last Filed: 10/14/24 19:21> Stated Complaint: AMS <Araceli Yinver AIMEE, DO - Last Filed: 10/14/24 19:21> History of Present Illness HPI narrative: Pt lives at home with daughter. daughter says the patient has been increasingly confused today. Pt denies fever or SOB or CP ro one sided weakness or SHETTY. 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 <Aracelidon Logan Kodi YU, DO - Last Filed: 10/14/24 19:21> Related Data Home Medications: Home Medications ?Medication ?Instructions ?Recorded ?Confirmed ?Last Taken ?Type ascorbic acid (vitamin C) 500 mg 500 mg PO DAILY 03/30/21 10/15/24 10/14/24 History tablet folic acid 1 mg tablet 1 mg PO DAILY 03/30/21 10/15/24 10/14/24 History multivitamin 1 tablet PO DAILY 12/14/21 10/15/24 10/14/24 History hydroxyzine HCl 25 mg tablet 25 mg PO TID 03/27/23 10/15/24 10/14/24 History duloxetine 60 mg capsule,delayed 60 mg PO DAILY 11/18/23 10/15/24 10/14/24 History release nystatin 100,000 unit/gram topical 1 applic topical BID 11/18/23 10/15/24 10/14/24 History powder dapagliflozin propanediol 5 mg 5 mg PO DAILY 12/21/23 10/15/24 10/14/24 History tablet (Farxiga) docusate sodium 100 mg capsule 100 mg PO DAILY 12/21/23 10/15/24 10/14/24 History furosemide 40 mg tablet 40 mg PO DAILY 12/21/23 10/15/24 10/14/24 History pantoprazole 40 mg tablet,delayed 40 mg PO HS 12/21/23 10/15/24 10/14/24 History release acetaminophen 500 mg tablet 500 mg PO Q6H PRN pain 06/02/24 10/15/24 10/14/24 History (Acetaminophen Pain Relief) apixaban 2.5 mg tablet (Eliquis) 2.5 mg PO BID 10/15/24 10/15/24 10/14/24 History baclofen 10 mg tablet 10 mg PO DAILY 10/15/24 10/15/24 10/14/24 History <Araceli Mariee III, DO - Last Filed: 10/14/24 19:21> Allergies/Adverse Reactions: Allergies Allergy/AdvReac Type Severity Reaction Status Date / Time Sulfa (Sulfonamide Allergy Severe rash Verified 10/15/24 02:26 Antibiotics) phenytoin (From Dilantin) Allergy Mild Hives Verified 10/15/24 02:26 pregabalin (From Lyrica) AdvReac Unknown DIZZY, Verified 10/15/24 02:26 SEDATED <Araceli Mariee III, DO - Last Filed: 10/14/24 19:21> Review of Systems 2 Review of Systems: ROS unobtainable: Yes unobtainable due to mental status <Araceli Mariee III, DO - Last Filed: 10/14/24 19:21> PMFSH Past Medical History Medical History: Medical History Diastolic heart failure Colonization with multidrug-resistant bacteria Urine cultures over the years have grown ESBL E coli, multidrug resistant Proteus mirabilis, and fluoroquinolone resistant Pseudomonas aeruginosa. 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 Apparently she has been deemed not a surgical candidate at this time due to her other medical conditions. Hypertension <Araceli Mariee III, DO - Last Filed: 10/14/24 19:21> Surgical History Surgical History: Surgical History History of craniotomy Either for an aneurysm or AVM. History of hysterectomy <Araceli Mariee III, DO - Last Filed: 10/14/24 19:21> Family History Family History: Family History Father Acute myocardial infarction <Araceli Mariee III, DO - Last Filed: 10/14/24 19:21> Social History Social History: Social History Social History: Healthcare power of trust and estates attorney: Arnulfo Acosta ([phone]). Code status: Modified code, no CPR. Smoking packs per day: 0.5 Smoking cigarettes per day: 10.0 Years smoked: 10 Smoking pack-years: 5.00 Smoking status: Former smoker Tobacco type: cigarettes Second hand tobacco smoke exposure: No Additional smoking assessment comments: SON-IN-LAW UNSURE OF SMOKING CESSATION DATE OR AMT IN PAST Alcohol intake: never Substance use: never Substance use type: does not use Do You Feel Safe in your Home?: Yes Lack of Transportation: No Lack of Food: Never True Current Housing: I Have Housing Concerned About Future Housing: No Difficulty Paying Gas/Electric Bills: No Difficulty Paying for Meds: No Currently Unemployed: No Education: Bachelor's Degree Difficulty w/ Childcare or Family Care: No Living arrangements: with family Additional living arrangements comments: DAUGHTER & IZTEL-DON 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 Spiritual care concerns: No <Araceli Desmond Mariee III, DO - Last Filed: 10/14/24 19:21> Exam 2 Const: General: no acute distress <Araceli Desmond Mariee III, DO - Last Filed: 10/14/24 19:21> Nutritional Appearance: obese <Araceli Desmond Mariee III, DO - Last Filed: 10/14/24 19:21> Limitations: altered mental status <Araceli Desmond Mariee III, DO - Last Filed: 10/14/24 19:21> HENMT: Head: normal to inspection <Araceli Desmond Mariee III, DO - Last Filed: 10/14/24 19:21> Mouth: Yes Normal oral and palatal mucosa present <Araceli Desmond Mariee III, DO - Last Filed: 10/14/24 19:21> Eyes: Pupils: Equal, round and reactive pupils present <Araceli Desmond Mariee III, DO - Last Filed: 10/14/24 19:21> EOM: EOMs intact bilaterally <Araceli Desmond Mariee III, DO - Last Filed: 10/14/24 19:21> Resp: Effort & Inspection: normal respiratory effort <Araceli Desmond Mariee III, DO - Last Filed: 10/14/24 19:21> Auscultation: clear to auscultation bilaterally <Araceli Desmond Mariee III, DO - Last Filed: 10/14/24 19:21> Cardio: Rate: regular rate <Araceli Desmond Mariee III, DO - Last Filed: 10/14/24 19:21> Rhythm: regular rhythm <Araceli Desmond Mariee III, DO - Last Filed: 10/14/24 19:21> GI: GI Palp: Yes Soft to palpation and No Tenderness to palpation present (GI) <Araceli Desmond Mariee III, DO - Last Filed: 10/14/24 19:21> Auscultation: normal bowel sounds <Araceli Desmond Mariee III, DO - Last Filed: 10/14/24 19:21> Back/Spine/Pelvis: Back: no CVA tenderness <Araceli Desmond Mariee III, DO - Last Filed: 10/14/24 19:21> Skin: General skin exam: normal color <Araceli Desmond Mariee III, DO - Last Filed: 10/14/24 19:21> Rashes: no rashes <Araceli Desmond Mariee III, DO - Last Filed: 10/14/24 19:21> Wounds: no wounds <Araceli Desmond Mariee III, DO - Last Filed: 10/14/24 19:21> Neuro: General: moves all extremities, no meningeal signs and no focal motor deficits <Araceli Desmond Mariee III, DO - Last Filed: 10/14/24 19:21> Speech: normal speech <Araceli Desmond Mariee III, DO - Last Filed: 10/14/24 19:21> Extrem: General: normal to inspection and no clubbing, cyanosis or edema < Araceli Desmond Mariee III, DO - Last Filed: 10/14/24 19:21> Psych: Mental Status: mental status grossly normal <Araceli Desmond Mariee III, DO - Last Filed: 10/14/24 19:21> Affect: normal affect <Araceli Desmond Mariee III, DO - Last Filed: 10/14/24 19:21> Attitude: cooperative <Araceli Desmond Mariee III, DO - Last Filed: 10/14/24 19:21> Course Course Emergency Course: Patient care signed out by previous provider pending completion of workup. Patient has a urinary tract infection, ESBL resistance on previous cultures. Switched antibiotics from Rocephin to meropenem. Patient is tachycardic and has had elevated troponins likely demand ischemia. Lactic acid is normal. Acute kidney injury and provided fluid resuscitation. CT of the head was obtained without any acute findings. Discussed with the hospitalist who accepted the patient to a hospital admission at this time. <Binu Meade MD - Last Filed: 10/15/24 06:10> Vital Signs Vital signs: Vital Signs Temperature 36.4 C 10/14/24 17:38 Pulse Rate 115 H 10/14/24 17:38 Respiratory Rate 13 10/14/24 17:38 Blood Pressure 110/68 10/14/24 17:38 Pulse Oximetry 98 10/14/24 17:38 Oxygen Delivery Room Air 10/14/24 17:38 Temperature 36.8 C 10/15/24 04:17 Pulse Rate 134 H 10/15/24 04:17 Respiratory Rate 18 10/15/24 04:17 Blood Pressure 130/46 L 10/15/24 04:17 Pulse Oximetry 93 10/15/24 04:17 Oxygen Delivery Room Air 10/15/24 04:00 <Araceli Desmond Mariee III, DO - Last Filed: 10/14/24 19:21> Vital Signs Temperature 36.4 C 10/14/24 17:38 Pulse Rate 115 H 10/14/24 17:38 Respiratory Rate 13 10/14/24 17:38 Blood Pressure 110/68 10/14/24 17:38 Pulse Oximetry 98 10/14/24 17:38 Oxygen Delivery Room Air 10/14/24 17:38 Temperature 36.8 C 10/15/24 04:17 Pulse Rate 134 H 10/15/24 04:17 Respiratory Rate 18 10/15/24 04:17 Blood Pressure 130/46 L 10/15/24 04:17 Pulse Oximetry 93 10/15/24 04:17 Oxygen Delivery Room Air 10/15/24 04:00 <Binu Meade MD - Last Filed: 10/15/24 06:10> MDM - Altered Mental Status MDM Narrative Medical decision making narrative: Pt presents from home with altered mental status. suspect uri or other infection so will get labs and ua and cxr but will get ct brain to rule out cva or sah. will give dose of rocephin and fluid bolus awaiting work up. daughter requests not to get head CT at this point and would like to await rest of work up. Turned care over to Dr Trujillo at 1900 awaiting remainder of work up. < Araceli Mariee III, DO - Last Filed: 10/14/24 19:21> Lab Data Result diagrams: 10/15/24 04:44 10/15/24 04:44 <Araceli Mariee III, DO - Last Filed: 10/14/24 19:21> Labs: Lab Results 10/14/24 10/14/24 10/14/24 Range/Units 18:30 18:30 20:17 WBC 17.7 H (4.5-10.0) K/mm3 RBC 4.18 L (4.2-5.4) M/mm3 Hgb 10.2 L (12.0-15.0) g/dL Hct 33.5 L (37.0-47.0) % MCV 80.1 (80-100) fl MCH 24.4 L (26-34) pg MCHC 30.4 L (32-36) g/dl RDW 20.0 H (11.5-14.5) % Plt Count 195 (150-375) k/mm3 MPV 9.3 (7.4-10.4) fl Immature Gran % (Auto) 0.5 (0-0.5) % Neut % (Auto) 88.8 H (45.5-73.1) % Lymph % (Auto) 4.4 L (18.3-44.2) % [place] % (Auto) 5.4 (2.6-8.5) % Eos % (Auto) 0.6 (0-4.4) % Baso % (Auto) 0.3 (0.2-1.2) % Lymph # (Auto) 0.78 L (0.9-3.2) K/mm3 [place] # (Auto) 1.0 H (0.1-0.6) K/mm3 Eos # (Auto) 0.1 (0-0.3) K/mm3 Baso # (Auto) 0.1 (0.0-0.1) K/mm3 Abs Immat Gran (auto) 0.08 H (0.00-0.031) K/mm3 Absolute Neuts (auto) 15.7 H (1.3-6.7) K/mm3 Absolute Nucleated RBC 0.000 (0.0-0.012) K/mm3 Band Neutrophils % Not Reportable Nucleated RBC % 0.0 (0.0-0.2) % Platelet Estimate Adequate (Adequate) Hypochromasia 1+ Schistocytes None seen PT 15.4 H (11.1-14.7) Seconds INR 1.2 APTT 32.8 (22.3-36.8) Seconds Sodium 138 (137-145) mmol/L Potassium 5.2 H (3.4-5.0) mmol/L Chloride 110 H (98-107) mmol/L Carbon Dioxide 16 L (22-30) mmol/L Anion Gap 12 (4-12) mmol/L BUN 46 H (7-17) mg/dL Creatinine 3.84 H (0.7-1.0) mg/dL Estim Creat Clear Calc 9 ml/min Estimated GFR 11 L (59 - ) Glucose 101 (65-110) mg/dL Lactic Acid 2.0 (0.7-2.0) mmol/L Calcium 8.7 (8.4-10.2) mg/dL Total Bilirubin 0.4 (0.2-1.3) mg/dL AST 23 (14-36) U/L ALT 11 (6-35) U/L Alkaline Phosphatase 133 H (38-126) U/L Troponin I 0.086 H* (0.000-0.034) ng/mL C-Reactive Protein 17.6 H Cancelled (<1.0) mg/dL Total Protein 6.6 (6.3-8.2) g/dL Albumin 3.0 L (3.5-5.1) g/dL Urine Color Yellow (Yellow) Urine Appearance Cloudy H (Clear) Urine pH 6.0 (5.0-9.0) Ur Specific [place] 1.020 (1.001-1.035) Urine Protein 3+ H (Negative) mg/dL Urine Glucose (UA) Negative (Negative) mg/dL Urine Ketones Negative (Negative) mg/dL Ur Blood (Man) 3+ H (Negative) Urine Nitrate Negative (Negative) Urine Bilirubin Negative (Negative) Urine Urobilinogen 0.2 (<2.0) mg/dL Leukocyte Esterase Rfl 3+ H (Negative) ARLETH/UL Urine RBC 21-50 H (0-2) /hpf Urine WBC 21-50 (0-3) /hpf Ur Squamous Epith Cells Rare (Few) /hpf Urine Bacteria 1+ H (None) /hpf 10/14/24 Range/Units 21:37 WBC (4.5-10.0) K/mm3 RBC (4.2-5.4) M/mm3 Hgb (12.0-15.0) g/dL Hct (37.0-47.0) % MCV (80-100) fl MCH (26-34) pg MCHC (32-36) g/dl RDW (11.5-14.5) % Plt Count (150-375) k/mm3 MPV (7.4-10.4) fl Immature Gran % (Auto) (0-0.5) % Neut % (Auto) (45.5-73.1) % Lymph % (Auto) (18.3-44.2) % [place] % (Auto) (2.6-8.5) % Eos % (Auto) (0-4.4) % Baso % (Auto) (0.2-1.2) % Lymph # (Auto) (0.9-3.2) K/mm3 [place] # (Auto) (0.1-0.6) K/mm3 Eos # (Auto) (0-0.3) K/mm3 Baso # (Auto) (0.0-0.1) K/mm3 Abs Immat Gran (auto) (0.00-0.031) K/mm3 Absolute Neuts (auto) (1.3-6.7) K/mm3 Absolute Nucleated RBC (0.0-0.012) K/mm3 Band Neutrophils % Nucleated RBC % (0.0-0.2) % Platelet Estimate (Adequate) Hypochromasia Schistocytes PT (11.1-14.7) Seconds INR APTT (22.3-36.8) Seconds Sodium (137-145) mmol/L Potassium (3.4-5.0) mmol/L Chloride (98-107) mmol/L Carbon Dioxide (22-30) mmol/L Anion Gap (4-12) mmol/L BUN (7-17) mg/dL Creatinine (0.7-1.0) mg/dL Estim Creat Clear Calc ml/min Estimated GFR (59 - ) Glucose (65-110) mg/dL Lactic Acid (0.7-2.0) mmol/L Calcium (8.4-10.2) mg/dL Total Bilirubin (0.2-1.3) mg/dL AST (14-36) U/L ALT (6-35) U/L Alkaline Phosphatase (38-126) U/L Troponin I 0.101 H* (0.000-0.034) ng/mL C-Reactive Protein (<1.0) mg/dL Total Protein (6.3-8.2) g/dL Albumin (3.5-5.1) g/dL Urine Color (Yellow) Urine Appearance (Clear) Urine pH (5.0-9.0) Ur Specific [place] (1.001-1.035) Urine Protein (Negative) mg/dL Urine Glucose (UA) (Negative) mg/dL Urine Ketones (Negative) mg/dL Ur Blood (Man) (Negative) Urine Nitrate (Negative) Urine Bilirubin (Negative) Urine Urobilinogen (<2.0) mg/dL Leukocyte Esterase Rfl (Negative) ARLETH/UL Urine RBC (0-2) /hpf Urine WBC (0-3) /hpf Ur Squamous Epith Cells (Few) /hpf Urine Bacteria (None) /hpf <Araceli Mariee III, DO - Last Filed: 10/14/24 19:21> Lab Results 10/14/24 10/14/24 10/14/24 Range/Units 18:30 18:30 20:17 WBC 17.7 H (4.5-10.0) K/mm3 RBC 4.18 L (4.2-5.4) M/mm3 Hgb 10.2 L (12.0-15.0) g/dL Hct 33.5 L (37.0-47.0) % MCV 80.1 (80-100) fl MCH 24.4 L (26-34) pg MCHC 30.4 L (32-36) g/dl RDW 20.0 H (11.5-14.5) % Plt Count 195 (150-375) k/mm3 MPV 9.3 (7.4-10.4) fl Immature Gran % (Auto) 0.5 (0-0.5) % Neut % (Auto) 88.8 H (45.5-73.1) % Lymph % (Auto) 4.4 L (18.3-44.2) % [place] % (Auto) 5.4 (2.6-8.5) % Eos % (Auto) 0.6 (0-4.4) % Baso % (Auto) 0.3 (0.2-1.2) % Lymph # (Auto) 0.78 L (0.9-3.2) K/mm3 [place] # (Auto) 1.0 H (0.1-0.6) K/mm3 Eos # (Auto) 0.1 (0-0.3) K/mm3 Baso # (Auto) 0.1 (0.0-0.1) K/mm3 Abs Immat Gran (auto) 0.08 H (0.00-0.031) K/mm3 Absolute Neuts (auto) 15.7 H (1.3-6.7) K/mm3 Absolute Nucleated RBC 0.000 (0.0-0.012) K/mm3 Band Neutrophils % Not Reportable Nucleated RBC % 0.0 (0.0-0.2) % Platelet Estimate Adequate (Adequate) Hypochromasia 1+ Schistocytes None seen PT 15.4 H (11.1-14.7) Seconds INR 1.2 APTT 32.8 (22.3-36.8) Seconds Sodium 138 (137-145) mmol/L Potassium 5.2 H (3.4-5.0) mmol/L Chloride 110 H (98-107) mmol/L Carbon Dioxide 16 L (22-30) mmol/L Anion Gap 12 (4-12) mmol/L BUN 46 H (7-17) mg/dL Creatinine 3.84 H (0.7-1.0) mg/dL Estim Creat Clear Calc 9 ml/min Estimated GFR 11 L (59 - ) Glucose 101 (65-110) mg/dL Lactic Acid 2.0 (0.7-2.0) mmol/L Calcium 8.7 (8.4-10.2) mg/dL Total Bilirubin 0.4 (0.2-1.3) mg/dL AST 23 (14-36) U/L ALT 11 (6-35) U/L Alkaline Phosphatase 133 H (38-126) U/L Troponin I 0.086 H* (0.000-0.034) ng/mL C-Reactive Protein 17.6 H Cancelled (<1.0) mg/dL Total Protein 6.6 (6.3-8.2) g/dL Albumin 3.0 L (3.5-5.1) g/dL Urine Color Yellow (Yellow) Urine Appearance Cloudy H (Clear) Urine pH 6.0 (5.0-9.0) Ur Specific [place] 1.020 (1.001-1.035) Urine Protein 3+ H (Negative) mg/dL Urine Glucose (UA) Negative (Negative) mg/dL Urine Ketones Negative (Negative) mg/dL Ur Blood (Man) 3+ H (Negative) Urine Nitrate Negative (Negative) Urine Bilirubin Negative (Negative) Urine Urobilinogen 0.2 (<2.0) mg/dL Leukocyte Esterase Rfl 3+ H (Negative) ARLETH/UL Urine RBC 21-50 H (0-2) /hpf Urine WBC 21-50 (0-3) /hpf Ur Squamous Epith Cells Rare (Few) /hpf Urine Bacteria 1+ H (None) /hpf 10/14/24 Range/Units 21:37 WBC (4.5-10.0) K/mm3 RBC (4.2-5.4) M/mm3 Hgb (12.0-15.0) g/dL Hct (37.0-47.0) % MCV (80-100) fl MCH (26-34) pg MCHC (32-36) g/dl RDW (11.5-14.5) % Plt Count (150-375) k/mm3 MPV (7.4-10.4) fl Immature Gran % (Auto) (0-0.5) % Neut % (Auto) (45.5-73.1) % Lymph % (Auto) (18.3-44.2) % [place] % (Auto) (2.6-8.5) % Eos % (Auto) (0-4.4) % Baso % (Auto) (0.2-1.2) % Lymph # (Auto) (0.9-3.2) K/mm3 [place] # (Auto) (0.1-0.6) K/mm3 Eos # (Auto) (0-0.3) K/mm3 Baso # (Auto) (0.0-0.1) K/mm3 Abs Immat Gran (auto) (0.00-0.031) K/mm3 Absolute Neuts (auto) (1.3-6.7) K/mm3 Absolute Nucleated RBC (0.0-0.012) K/mm3 Band Neutrophils % Nucleated RBC % (0.0-0.2) % Platelet Estimate (Adequate) Hypochromasia Schistocytes PT (11.1-14.7) Seconds INR APTT (22.3-36.8) Seconds Sodium (137-145) mmol/L Potassium (3.4-5.0) mmol/L Chloride (98-107) mmol/L Carbon Dioxide (22-30) mmol/L Anion Gap (4-12) mmol/L BUN (7-17) mg/dL Creatinine (0.7-1.0) mg/dL Estim Creat Clear Calc ml/min Estimated GFR (59 - ) Glucose (65-110) mg/dL Lactic Acid (0.7-2.0) mmol/L Calcium (8.4-10.2) mg/dL Total Bilirubin (0.2-1.3) mg/dL AST (14-36) U/L ALT (6-35) U/L Alkaline Phosphatase (38-126) U/L Troponin I 0.101 H* (0.000-0.034) ng/mL C-Reactive Protein (<1.0) mg/dL Total Protein (6.3-8.2) g/dL Albumin (3.5-5.1) g/dL Urine Color (Yellow) Urine Appearance (Clear) Urine pH (5.0-9.0) Ur Specific [place] (1.001-1.035) Urine Protein (Negative) mg/dL Urine Glucose (UA) (Negative) mg/dL Urine Ketones (Negative) mg/dL Ur Blood (Man) (Negative) Urine Nitrate (Negative) Urine Bilirubin (Negative) Urine Urobilinogen (<2.0) mg/dL Leukocyte Esterase Rfl (Negative) ARLETH/UL Urine RBC (0-2) /hpf Urine WBC (0-3) /hpf Ur Squamous Epith Cells (Few) /hpf Urine Bacteria (None) /hpf <Binu Meade MD - Last Filed: 10/15/24 06:10> Critical Care Time Critical Care Time Critical Care Time: Yes <Binu Meade MD - Last Filed: 10/15/24 06:10> Total Critical Care Time: 35 <Binu Meade MD - Last Filed: 10/15/24 06:10> Discharge Plan Discharge Clinical Impression: Altered mental status, MANISHA (acute kidney injury) Urinary tract infection Qualifiers: Urinary tract infection type: catheter-associated UTI Indwelling urinary catheter type: cystostomy catheter Encounter type: initial encounter Qualified Code(s): T83.510A - Infection and inflammatory reaction due to cystostomy catheter, initial encounter <Araceli Mariee III, DO - Last Filed: 10/14/24 19:21> Patient Disposition: Still a Patient <Araceli Mariee III, DO - Last Filed: 10/14/24 19:21> Condition: Stable <Araceli Mariee III, DO - Last Filed: 10/14/24 19:21>
--- OUTSIDE RECORDS SUMMARY | 2024-10-14 18:07 | XMS_ITS ---
Author Organization [facility] Address [address] [facility] [address] [facility] [address] [place] [address] Care Team Providers Care Technical Program Manager Name Role Phone Rosalio Adams Unavailable [phone] Encounters Encounter Location Date Provider Diagnosis [place] [facility] [address] [facility] [address] [place] [address] 12/12/2023 Rosalio Adams Plan Of Treatment No Information Progress Notes * Mariana SINGLETARYOB:1940 (83 yo F)Acc No.[id number]:12/12/2023 Progress Notes Patient: Dasia CORTEZ Provider: Gina HADLEY MD, Lilly.Alonso.C.P, F.A.S.N. :1940 A ge:82 Y S ex:Female Date:12/12/2023 Address:[address] [place] [address] Subjective: * Chief Complaints: * * Medical History: Objective: * Vitals: Assessment: Plan: * Treatment: * Billing Information: * Visit Code: * Procedure Codes: * Electronic signature of Adam Adams MD on 10/14/2024 at 06:07 PM CDT Sign off status: Pending * Provider: Gina HADLEY MD, F.Alonso.C.P, F.A.S.N. Date: Generated for Printing/Faxing/eTransmitting on: 0 10/14/2024 06:07 PM CDT
--- OUTSIDE RECORDS SUMMARY | 2024-10-14 18:07 | XMS_ITS | Clinical Summary ---
Author Organization [facility] Address [address] [address] Care Team Providers Care It Applications Developer Name Role Phone Malena Gallardo MD Primary Care Provider Unaviktoria ilable Social History Tobacco Use Types Packs/Day Years [...] Comments Blood Pressure 180/80 05/04/2020 12:00 PM HYDRO TECHNICIAN Pulse 116 05/04/2020 12:00 PM HYDRO TECHNICIAN Temperature - - Respiratory Rate 20 05/04/2020 12:00 PM HYDRO TECHNICIAN Oxygen Saturation 86% 05/04/2020 12:00 PM HYDRO TECHNICIAN Inhaled Oxygen Concentration - - Weight - - Height 142.2 cm (4' 8) 05/04/2020 12:00 PM HYDRO TECHNICIAN Body Mass Index - - Plan of Treatment Health Maintenance Due Date Last Done Comments Influenza Vaccine (#1) 2024 9, 01/07/2016, 12/10/2014, Additional history exists Pneumococcal Vaccine: 50+ Years Completed 11/14/2018, 12/10/2014 Hepatitis B Vaccine Aged Out No longe r eligible based on patient's age to complete this topic Insurance [facility] Medicare Care Teams It Applications Developer Relationship Specialty [place] [id number] [address] PCP - General Internal Medicine 12/20/20
--- OUTSIDE RECORDS SUMMARY | 2024-10-14 18:07 | XMS_ITS | Encounter Summary ---
Author Organization [employer] Address [address] [place] [address] Care Team Providers Care Technician Support Association Name Role Phone Kalie Haq MD Primary Care Provider Encounter Details Date Type Department Care Team (Latest Contact Info) Description 05/26/1999 Outpatient Historical [facility] Ramo Manzo MD [address] [facility] [address] [place] [address] Arthropathy, unspecified, site unspecified (Primary Dx) Social History Tobacco Use Types Packs/Day Years Used Date Smoking Tobacco: Never Assessed Comments Unknown Sex and Gender Information Value Date Recorded Sex Assigned at Not on file Legal Sex Female 5:14 AM 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
--- OUTSIDE RECORDS SUMMARY | 2024-10-14 18:07 | XMS_ITS | Clinical Summary ---
Author Organization [facility] Address [address] [facility] [place] [address] Care Team Providers Care Isobutylene Operator Chief Name Role Phone Michele Leo MD Primary Care Provider [phone] Source Comments [facility],non-owned Affiliates and Associated Physician Practices is amultiple site organization consisting of ambulatory clinics and hospital sitesin [place], [place], [place] and [place]. This disclosure is being madepursuant to the Care Everywhere program and may not contain all information available regarding this patient. 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
--- OUTSIDE RECORDS SUMMARY | 2024-10-14 18:07 | XMS_ITS | Continuity of Care Document ---
Author Organization [facility] Address [address] [place] [address] Phone Care Team Providers Care Neuro Intensivist Physician Name Role Phone Arnold OD, Quintin Unavailable Unavailable Procedures Procedure Date Contact Lens Check Contact Lens Hydrophilic, Spherical Medical Tax Eye Exam & Treatment Refraction Eye Exam & Treatment No Script Refraction Eye Exam & Treatment Refraction Eye Exam & Treatment Visual Functional Status Assessed Refraction Advance Directives Directive Yes / No Effective Date File Name No Information Encounters Encounter Description Practice Location Reason(s) For Visit Diagnoses Date Provider Providers Copied on Encounter [facility], [address] [place] [address] [address], [place], [place], [id number], [place] tel:[phone] [facility] No Information 0-201 0 Arnold OD Quintin. [address] [facility] , [address], [place], [address], [place]. tel:[phone] [facility], [id number] [place] [address] [address], [place], [place], [id number], [place] tel:[phone] [facility] No Information 0-201 0 Arnold OD Quintin. [address] [facility] [address], [address], [place], [address], [place]. tel:[phone] [facility], [address] [place] [address] [address], [place], [place], [id number], tel:[phone] [facility] [place] No Information Jan- 0-200 9 Arnold OD Quintin. [address] [facility] , [address], [place], [address], . tel:[phone] [facility], [id number] [place] [address] [address], [place], [place], [id number], [place] tel:[phone] [facility] [place] No Information Jan-2 5-200 8 Arnold OD Quintin. [address] [facility] , [address], [place], [address], [place]. tel:[phone] [facility], [address], [place], [place], [id number], tel:[phone] [facility] [place] No Information 8-200 7 Arnold OD Quintin. [facility] [facility] , [address], [place], [address], [place]. tel:[phone] Family History Family Member Type Diagnosis Age At Onset No Information Payers Payer name Insurance type Covered constitution party ID Authorhonga tilewis(s) [place] [id number] Social History Type Description Quantity Date Captured Comments Sex Female Smoking Status No Information Chief Complaint And Reason For Visit No Information Reason For Referral Reason For Referral No Information History Of Present Illness Encounter Date Complaint History Of Prese nt Illness No Information Functional Status Date Functional Assessmen t No Information Instructions Date Instruction Additional Infor mation No Information Assessments Type Assessment Date No Information Patient Care Teams Name Effective Dates (start - stop) Status Members No Information
--- OUTSIDE RECORDS SUMMARY | 2024-10-14 18:07 | XMS_ITS | Patient Health Record ---
Author Organization [facility] Address [address] [facility] [address] [address] Care Team Providers Care Kiln Packer Name Role Phone Rosalio Adams Unavailable [phone] Reason For Referral No Information Plan Of Treatment No Information
--- OUTSIDE RECORDS SUMMARY | 2024-10-14 18:07 | XMS_ITS | Clinical Summary ---
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
[2024-10-14] MEDS: SODIUM CHLORIDE 0.9% IV 1,000 ML 999 ML IV CONT ×2 (18:34→21:44)
[2024-10-14 18:37] LABS: Hematocrit 33.5 % (37.0-47.0); Hemoglobin 10.2 g/dL (12.0-15.0); Immature Granulocyte Percent A 0.5 % (0-0.5); Lymphocytes Absolute Auto 0.78 K/mm3 (0.9-3.2); Mean Corpuscular HGB Conc 30.4 g/dl (32-36); Mean Corpuscular Hemoglobin 24.4 pg (26-34); Mean Corpuscular Volume 80.1 fl (80-100); Nucleated Red Blood Cells Absolute Auto 0.000 K/mm3 (0.0-0.012); Nucleated Red Blood Cells Perc 0.0 % (0.0-0.2); Platelet Count Result 195 k/mm3 (150-375); Red Blood Count 4.18 M/mm3 (4.2-5.4); White Blood Count 17.7 K/mm3 (4.5-10.0)
[2024-10-14 18:50] LABS: INR 1.2; Partial Thromboplastin Time 32.8 Seconds (22.3-36.8); Prothrombin Time 15.4 Seconds (11.1-14.7)
[2024-10-14 19:01] LABS: Hypochromasia 1+; Schistocytes None Seen
[2024-10-14 19:07] LABS: Troponin I 0.086 ng/mL (0.000-0.034)
--- NOTE | 2024-10-14 19:11 | PC.NURSE ---
BSSR received from HANY Herrera at this time. Pt resting in bed with call light within reach.
[2024-10-14 19:22] VITALS: BP 116/104; PULSE 120; RESP 19; O2SAT 97
[2024-10-14 19:22] LABS: Alanine Aminotransferase 11 U/L (6-35); Albumin Level 3.0 g/dL (3.5-5.1); Alkaline Phosphatase 133 U/L (38-126); Anion Gap 12 mmol/L (4-12); Aspartate Amino Transferase 23 U/L (14-36); Bilirubin,Total 0.4 mg/dL (0.2-1.3); Blood Urea Nitrogen 46 mg/dL (7-17); Calcium 8.7 mg/dL (8.4-10.2); Carbon Dioxide 16 mmol/L (22-30); Chloride 110 mmol/L (98-107); Estimated CRCL calculation 9 ml/min; Estimated Glomerular Filt Rate 11; Glucose 101 mg/dL (65-110); Potassium 5.2 mmol/L (3.4-5.0); Sodium 138 mmol/L (137-145); Total Protein 6.6 g/dL (6.3-8.2)
[2024-10-14] MEDS: MEROPENEM 1 GM in SODIUM CHLORIDE 0.9% IV 100 ML 200 ML IVPB (19:42)
[2024-10-14 19:45] VITALS: BP 148/97; PULSE 117; RESP 14; O2SAT 100
[2024-10-14 19:45] LABS: CRP 17.6 mg/dL (<1.0)
[2024-10-14 20:38] LABS: Add Urine Microscopic? YES
--- NOTE | 2024-10-14 20:43 | ECG_ITS ---
Test Date: 2024-10-14 20:55:30 Measurements Intervals [place] Rate: 120 P: 24 FL: 148 QRS: 30 QRSD: 75 T: 41 QT: 419 QTc: 593 Interpretive Statements SINUS TACHYCARDIA LOW QRS VOLTAGE IN PRECORDIAL LEADS NONSPECIFIC ST & T-WAVE ABNORMALITY- DIFFUSE LEADS BASELINE ARTIFACT- I, II, AVR, AVL, AVF, V2 ABNORMAL ECG Compared to ECG 12/31/2023 08:33:14 HEART RATE HAS INCREASED Electronically Signed On 10-15-2024 06:12:14 CDT by Nick Arreola D.O.
[2024-10-14 20:47] LABS: Appearance Urine Cloudy (Clear); Glucose Urine UA Negative (Negative); Leukocyte Esterase Ur 3+ LEU/UL (Negative); Nitrate Urine Negative (Negative); Specific Grav Ur 1.020 (1.001-1.035)
[2024-10-14 22:13] LABS: Troponin I 0.101 ng/mL (0.000-0.034)
[2024-10-14 22:35] VITALS: PULSE 113
[2024-10-14 23:24] VITALS: BP 125/98; PULSE 112; RESP 17; O2SAT 97
--- NOTE | 2024-10-14 23:37 | ECG_ITS ---
Test Date: 2024-10-14 21:41:51 Measurements Intervals [place] Rate: 115 P: 35 IN: 152 QRS: 26 QRSD: 76 T: -11 QT: 272 QTc: 376 Interpretive Statements SINUS TACHYCARDIA LOW QRS VOLTAGE IN PRECORDIAL LEADS BORDERLINE ST-T WAVE ABNORMALITY- DIFFUSE LEADS BASELINE ARTIFACT- I, II, III, AVR, AVL, AVF, V1-V6 ABNORMAL ECG Compared to ECG 10/14/2024 20:55:30 NO SIGNIFICANT CHANGE Electronically Signed On 10-15-2024 06:15:53 CDT by Nick Arreola D.O.
[2024-10-15] VITALS (13 sets, daily range): BP systolic 87–130; BP diastolic 41–91; PULSE 75–134; RESP 15–24; TEMP 35.7–37.7; O2SAT 92–99; BMI 25.4
--- NOTE | 2024-10-15 00:24 | ECG_ITS ---
Test Date: 2024-10-15 00:29:38 Measurements Intervals [place] Rate: 123 P: 21 SC: 142 QRS: 42 QRSD: 74 T: 126 QT: 407 QTc: 583 Interpretive Statements SINUS TACHYCARDIA LOW QRS VOLTAGE IN PRECORDIAL LEADS NONSPECIFIC ST & T-WAVE ABNORMALITY- DIFFUSE LEADS BASELINE ARTIFACT- I, II, III, AVR, AVL, AVF, V1-V6 ABNORMAL ECG Compared to ECG 10/14/2024 21:41:51 No significant changes Electronically Signed On 10-15-2024 06:12:40 CDT by Nick Arreola D.O.
[2024-10-15 01:19] LABS: Troponin I 0.126 ng/mL (0.000-0.034)
--- NOTE | 2024-10-15 02:29 | ADMGEN ---
This patient, Dasia Hernandez, was admitted to IMU Room 232-01 at 0155. Patient/family oriented to hospital policies and general routines including ID bracelet, bed and alarms, visiting hours, pain management, procedures, bathroom and other care routines, personal items, smoking policy, room service/diet, and visiting hours. Information on how to activate the Rapid Response Team has been discussed. Patient/Family are encouraged to report perceived risks to care and to ask questions if they do not understand what they are told or what they should do.
--- NOTE | 2024-10-15 02:34 | PC.NURSE ---
This RN spoke with [id number] Ale, for assistance with completing admission. Notified family that patient is in 232-1.
--- NOTE | 2024-10-15 04:22 | WNDPHOTO ---
PHOTO ONLY - See Nursing Notes and/ or assessments for documentation.
[2024-10-15 05:00] LABS: Hematocrit 29.2 % (37.0-47.0); Hemoglobin 9.1 g/dL (12.0-15.0); Immature Granulocyte Percent A 0.8 % (0-0.5); Lymphocytes Absolute Auto 0.84 K/mm3 (0.9-3.2); Mean Corpuscular HGB Conc 31.2 g/dl (32-36); Mean Corpuscular Hemoglobin 24.9 pg (26-34); Mean Corpuscular Volume 79.8 fl (80-100); Nucleated Red Blood Cells Absolute Auto 0.000 K/mm3 (0.0-0.012); Nucleated Red Blood Cells Perc 0.0 % (0.0-0.2); Platelet Count Result 182 k/mm3 (150-375); Red Blood Count 3.66 M/mm3 (4.2-5.4); White Blood Count 21.1 K/mm3 (4.5-10.0)
[2024-10-15 05:13] LABS: Alanine Aminotransferase 13 U/L (6-35); Albumin Level 2.8 g/dL (3.5-5.1); Alkaline Phosphatase 114 U/L (38-126); Anion Gap 10 mmol/L (4-12); Aspartate Amino Transferase 23 U/L (14-36); Bilirubin,Total 0.5 mg/dL (0.2-1.3); Blood Urea Nitrogen 42 mg/dL (7-17); Calcium 8.1 mg/dL (8.4-10.2); Carbon Dioxide 14 mmol/L (22-30); Chloride 115 mmol/L (98-107); Estimated CRCL calculation 8 ml/min; Estimated Glomerular Filt Rate 12; Glucose 87 mg/dL (65-110); Magnesium 1.4 mg/dL (1.6-2.3); Potassium 5.0 mmol/L (3.4-5.0); Sodium 139 mmol/L (137-145); Total Protein 6.4 g/dL (6.3-8.2)
[2024-10-15 05:26] LABS: Troponin I 0.162 ng/mL (0.000-0.034)
[2024-10-15 05:54] LABS: Band Neutrophils Percent 0 % (0-6); Burr Cells 1+; Ovalocytes 1+; Schistocytes None Seen
[2024-10-15] MEDS: HEPARIN SOD/D5W 100 UNITS/ML 25,000 UNITS/250 ML BAG 7 UNITS IV CONT (06:22)
[2024-10-15] MEDS: METOPROLOL TARTRATE INJ 5 MG/5 ML VIAL IV PUSH (06:22)
[2024-10-15 08:34] LABS: INR 1.2; Prothrombin Time 15.5 Seconds (11.1-14.7)
[2024-10-15 08:35] LABS: Partial Thromboplastin Time 40.4 Seconds (22.3-36.8)
[2024-10-15 08:41] LABS: Troponin I 0.212 ng/mL (0.000-0.034)
[2024-10-15] MEDS: ASCORBIC ACID 500 MG TABLET PO (09:18)
[2024-10-15] MEDS: FOLIC ACID 1 MG TABLET PO (09:18)
[2024-10-15] MEDS: EMPAGLIFLOZIN 10 MG TABLET BY MOUTH (09:18)
[2024-10-15] MEDS: FUROSEMIDE 40 MG TABLET PO (09:18)
[2024-10-15] MEDS: BACLOFEN 10 MG TABLET PO (09:18)
--- NOTE | 2024-10-15 09:30 | P.CONUR_ITS ---
Assessment and Plan Assessment and plan (1) Hydronephrosis of right kidney: Code(s): N13.30 - Unspecified hydronephrosis Status: Chronic (2) Urinary retention: Code(s): R33.9 - Retention of urine, unspecified Status: Chronic Assessment and Plan: * Patient has chronic right hydronephrosis with an indwelling stent that appears to be appropriately positioned and appropriately functioning. * Patient due for next stent change and December. I will have my office go ahead and get that scheduled. * Otherwise, nothing for us to do acutely Urology Consult Note HPI Date Seen: 10/15/24 Requesting Physician: Edin Granado MD Primary Care Provider: Mary Castillo, PORTABLE TRACK CREW CHIEF Consult Narrative Narrative: Dasia Hernandez is a 83 year old female presents a challenging urological problem. She is immobile with fixed/frozen lower extremities precluding cystoscopy via urethra. She has a neurogenic bladder that is managed with a chronic suprapubic catheter. She also has chronic right hydronephrosis managed with a right ureteral stent that is changed periodically. She is admitted on this occasion with mental status changes possibly due to urinary tract infection. CT imaging shows the right ureteral stent to be in position with mild right hydronephrosis, as expected due to vesicoureteral reflux. Review of Systems 2 Review of Systems: All systems reviewed & are unremarkable except as noted in HPI and below PMFSH Past Medical History Medical History Diastolic heart failure Colonization with multidrug-resistant bacteria Urine cultures over the years have grown ESBL E coli, multidrug resistant Proteus mirabilis, and fluoroquinolone resistant Pseudomonas aeruginosa. 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 Apparently she has been deemed not a surgical candidate at this time due to her other medical conditions. Hypertension Surgical History Surgical History History of craniotomy Either for an aneurysm or AVM. History of hysterectomy Family History Family History Father Acute myocardial infarction Social History Social History Social History: Healthcare power of inspector soldering: Arnulfo Acosta ([phone]). Code status: Modified code, no CPR. Smoking packs per day: 0.5 Smoking cigarettes per day: 10.0 Years smoked: 10 Smoking pack-years: 5.00 Smoking status: Former smoker Tobacco type: cigarettes Second hand tobacco smoke exposure: No Additional smoking assessment comments: SON-IN-LAW UNSURE OF SMOKING CESSATION DATE OR AMT IN PAST Alcohol intake: never Substance use: never Substance use type: does not use Do You Feel Safe in your Home?: Yes Lack of Transportation: No Lack of Food: Never True Current Housing: I Have Housing Concerned About Future Housing: No Difficulty Paying Gas/Electric Bills: No Difficulty Paying for Meds: No Currently Unemployed: No Education: Bachelor's Degree Difficulty w/ Childcare or Family Care: No Living arrangements: with family Additional living arrangements comments: DAUGHTER & ITZEL-DON Occupation/Education: 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 Spiritual care concerns: No Meds Home Medications and Allergies Home Medications ?Medication ?Instructions ?Recorded ?Confirmed ?Type carvedilol 6.25 mg tablet (Coreg) 6.25 mg PO Q12HR 30 days #60 tabs 09/09/19 10/15/24 Rx ascorbic acid (vitamin C) 500 mg 500 mg PO DAILY 03/30/21 10/15/24 History tablet folic acid 1 mg tablet 1 mg PO DAILY 03/30/21 10/15/24 History multivitamin 1 tablet PO DAILY 12/14/21 10/15/24 History hydroxyzine HCl 25 mg tablet 25 mg PO TID 03/27/23 10/15/24 History duloxetine 60 mg capsule,delayed 60 mg PO DAILY 11/18/23 10/15/24 History release nystatin 100,000 unit/gram topical 1 applic topical BID 11/18/23 10/15/24 History powder dapagliflozin propanediol 5 mg 5 mg PO DAILY 12/21/23 10/15/24 History tablet (Farxiga) docusate sodium 100 mg capsule 100 mg PO DAILY 12/21/23 10/15/24 History furosemide 40 mg tablet 40 mg PO DAILY 12/21/23 10/15/24 History pantoprazole 40 mg tablet,delayed 40 mg PO HS 12/21/23 10/15/24 History release acetaminophen 500 mg tablet 500 mg PO Q6H PRN pain 06/02/24 10/15/24 History (Acetaminophen Pain Relief) apixaban 2.5 mg tablet (Eliquis) 2.5 mg PO BID 10/15/24 10/15/24 History baclofen 10 mg tablet 10 mg PO DAILY 10/15/24 10/15/24 History Allergies Allergy/AdvReac Type Severity Reaction Status Date / Time Sulfa (Sulfonamide Allergy Severe rash Verified 10/15/24 02:26 Antibiotics) phenytoin (From Dilantin) Allergy Mild Hives Verified 10/15/24 02:26 pregabalin (From Lyrica) AdvReac Unknown DIZZY, Verified 10/15/24 02:26 SEDATED Vital Signs Vital Signs - 24 hr 10/14/24 17:38 10/14/24 19:22 10/14/24 19:45 Temperature 97.6 F Pulse Rate 115 H 120 H 117 H Respiratory Rate 13 19 14 Blood Pressure 110/68 116/104 H 148/97 H Pulse Oximetry 98 97 100 Oxygen Delivery Room Air 10/14/24 22:35 10/14/24 23:24 10/15/24 01:09 Temperature 98.4 F Pulse Rate 113 H 112 H 116 H Respiratory Rate 17 17 Blood Pressure 125/98 H 92/54 L Pulse Oximetry 97 97 Oxygen Delivery 10/15/24 01:17 10/15/24 02:19 10/15/24 02:46 Temperature 98.4 F Pulse Rate 112 H 124 H Respiratory Rate 16 15 Blood Pressure 113/91 H 104/48 L Pulse Oximetry 99 92 Oxygen Delivery Room Air 10/15/24 04:00 10/15/24 04:00 10/15/24 04:17 Temperature 98.2 F Pulse Rate 114 H 134 H Respiratory Rate 18 Blood Pressure 130/46 L Pulse Oximetry 93 Oxygen Delivery Room Air 10/15/24 06:00 10/15/24 06:22 10/15/24 08:00 Temperature 98.8 F Pulse Rate 127 H 123 H 124 H Respiratory Rate 22 H Blood Pressure 106/69 Pulse Oximetry 97 Oxygen Delivery 10/15/24 08:43 10/15/24 09:18 Temperature Pulse Rate 108 H 113 H Respiratory Rate 20 Blood Pressure Pulse Oximetry 94 Oxygen Delivery Room Air Exam 2 Const: General: no acute distress Resp: Effort & Inspection: normal respiratory effort GI: Inspection: non-distended GI Palp: No abdominal tenderness and No Guarding due to palpation present (GI) Auscultation: normal bowel sounds Urinary Catheter: Urinary Catheter: patent and draining and urine clear Extrem: Other: Rigid fixed lower extremities Results Labs 10/15/24 04:44 10/15/24 04:44 Labs: Short CBC 10/14/24 10/15/24 Range/Units 18:30 04:44 WBC 17.7 H 21.1 H (4.5-10.0) K/mm3 Hgb 10.2 L 9.1 L (12.0-15.0) g/dL Hct 33.5 L 29.2 L (37.0-47.0) % Plt Count 195 182 (150-375) k/mm3 BMP 10/14/24 10/15/24 18:30 04:44 Sodium 138 139 Potassium 5.2 H 5.0 Chloride 110 H 115 H Carbon Dioxide 16 L 14 L BUN 46 H 42 H Creatinine 3.84 H 3.72 H Glucose 101 87 Calcium 8.7 8.1 L Cardiac Enzymes 10/14/24 10/14/24 10/15/24 Range/Units 18:30 21:37 00:46 Troponin I 0.086 H* 0.101 H* 0.126 H* D (0.000-0.034) ng/mL 10/15/24 10/15/24 Range/Units 04:44 08:07 Troponin I 0.162 H* D 0.212 H* D (0.000-0.034) ng/mL Liver Function 10/14/24 10/15/24 Range/Units 18:30 04:44 Total Bilirubin 0.4 0.5 (0.2-1.3) mg/dL AST 23 23 (14-36) U/L ALT 11 13 (6-35) U/L Alkaline Phosphatase 133 H 114 (38-126) U/L Albumin 3.0 L 2.8 L (3.5-5.1) g/dL Urine 10/14/24 Range/Units 20:17 Urine Color Yellow (Yellow) Urine Appearance Cloudy H (Clear) Urine pH 6.0 (5.0-9.0) Ur Specific [place] 1.020 (1.001-1.035) Urine Protein 3+ H (Negative) mg/dL Urine Glucose (UA) Negative (Negative) mg/dL
--- NOTE | 2024-10-15 09:40 | PC.NURSE ---
Discussed with MD patient inability to swallow pills that cannot be crushed, specifically unable to give Colace this morning or coated multi-vitamin. MD verbalizes understanding. Also made MD aware of wounds on patient. Will get care coordination involved as there are concerns related to patient home care or lack there of.
[2024-10-15 12:41] LABS: Partial Thromboplastin Time 34.9 Seconds (22.3-36.8)
[2024-10-15] MEDS: MAGNESIUM SULF 2 GM/WATER 50ML 2 GM/50 ML BAG IVPB (12:50)
--- NOTE | 2024-10-15 14:16 | PC.NURSE ---
Family members at the bedside. Family has decided to place patient on hospice. Dr Combs updated and states will put in comfort measure orders and Care coordination updated at this time.
--- NOTE | 2024-10-15 14:31 | PM.IMHP ---
H&P: HPI History of Present Illness Date/Time: 10/15/24 14:31 Chief Complaint: Altered Mental Status Narrative: ER-HPI narrative: Pt lives at home with daughter. daughter says the patient has been increasingly confused today. Pt denies fever or SOB or CP ro one sided weakness or SHETTY. 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 patient remains confused and unable to provider detail history or ROS, to further evaluate patient had CT scan of the head which showed no acute intracranial hemorrhage or suspicious mass effect. it did show post right frontotemporal lobe infarction, patient also had CT scan of abdomen and chest, concerning for pneumonia, primary hepatocellular carcinoma or metastatic disease and right hydronephrosis with internal ureteral stent in expected position for which patient was seen by urologist, chronic right hydronephrosis with an indwelling stent that appears to be appropriately positioned and appropriately functioning and patient is scheduled for stent change in December. also upon arrival patient had elevated tropes as patient does not have c/o CP, most likely demand ischemia due to stress and pain from the wounds, patient is being treated with heparin and will monitor, discuss with the patient nurse and review patients wound photos, Patient family has decided to place under comfort measure. will monitor and may be admitted under hospice care. [facility] Past Medical History Medical History Diastolic heart failure Colonization with multidrug-resistant bacteria Urine cultures over the years have grown ESBL E coli, multidrug resistant Proteus mirabilis, and fluoroquinolone resistant Pseudomonas aeruginosa. 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 Apparently she has been deemed not a surgical candidate at this time due to her other medical conditions. Hypertension Surgical History Surgical History History of craniotomy Either for an aneurysm or AVM. History of hysterectomy Family History Family History Father Acute myocardial infarction Social History Social History Social History: Healthcare power of insurance attorney: Arnulfo Acosta ([phone]). Code status: Modified code, no CPR. Smoking packs per day: 0.5 Smoking cigarettes per day: 10.0 Years smoked: 10 Smoking pack-years: 5.00 Smoking status: Former smoker Tobacco type: cigarettes Second hand tobacco smoke exposure: No Additional smoking assessment comments: SON-IN-LAW UNSURE OF SMOKING CESSATION DATE OR AMT IN PAST Alcohol intake: never Substance use: never Substance use type: does not use Do You Feel Safe in your Home?: Yes Lack of Transportation: No Lack of Food: Never True Current Housing: I Have Housing Concerned About Future Housing: No Difficulty Paying Gas/Electric Bills: No Difficulty Paying for Meds: No Currently Unemployed: No Education: Bachelor's Degree Difficulty w/ Childcare or Family Care: No Living arrangements: with family Additional living arrangements comments: DAUGHTER & ITZEL-DON Occupation/Education: 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 Spiritual care concerns: No Meds Home Medications and Allergies Home Medications ?Medication ?Instructions ?Recorded ?Confirmed ?Type carvedilol 6.25 mg tablet (Coreg) 6.25 mg PO Q12HR 30 days #60 tabs 09/09/19 10/15/24 Rx ascorbic acid (vitamin C) 500 mg 500 mg PO DAILY 03/30/21 10/15/24 History tablet folic acid 1 mg tablet 1 mg PO DAILY 03/30/21 10/15/24 History multivitamin 1 tablet PO DAILY 12/14/21 10/15/24 History hydroxyzine HCl 25 mg tablet 25 mg PO TID 03/27/23 10/15/24 History duloxetine 60 mg capsule,delayed 60 mg PO DAILY 11/18/23 10/15/24 History release nystatin 100,000 unit/gram topical 1 applic topical BID 11/18/23 10/15/24 History powder dapagliflozin propanediol 5 mg 5 mg PO DAILY 12/21/23 10/15/24 History tablet (Farxiga) docusate sodium 100 mg capsule 100 mg PO DAILY 12/21/23 10/15/24 History furosemide 40 mg tablet 40 mg PO DAILY 12/21/23 10/15/24 History pantoprazole 40 mg tablet,delayed 40 mg PO HS 12/21/23 10/15/24 History release acetaminophen 500 mg tablet 500 mg PO Q6H PRN pain 06/02/24 10/15/24 History (Acetaminophen Pain Relief) apixaban 2.5 mg tablet (Eliquis) 2.5 mg PO BID 10/15/24 10/15/24 History baclofen 10 mg tablet 10 mg PO DAILY 10/15/24 10/15/24 History Allergies Allergy/AdvReac Type Severity Reaction Status Date / Time Sulfa (Sulfonamide Allergy Severe rash Verified 10/15/24 02:26 Antibiotics) phenytoin (From Dilantin) Allergy Mild Hives Verified 10/15/24 02:26 pregabalin (From Lyrica) AdvReac Unknown DIZZY, Verified 10/15/24 02:26 SEDATED Vital Signs Vital Signs - 24 hr 10/14/24 17:38 10/14/24 19:22 10/14/24 19:45 Temperature 36.4 C Pulse Rate 115 H 120 H 117 H Respiratory Rate 13 19 14 Blood Pressure 110/68 116/104 H 148/97 H Pulse Oximetry 98 97 100 Oxygen Delivery Room Air 10/14/24 22:35 10/14/24 23:24 10/15/24 01:09 Temperature 36.9 C Pulse Rate 113 H 112 H 116 H Respiratory Rate 17 17 Blood Pressure 125/98 H 92/54 L Pulse Oximetry 97 97 Oxygen Delivery 10/15/24 01:17 10/15/24 02:19 10/15/24 02:46 Temperature 36.9 C Pulse Rate 112 H 124 H Respiratory Rate 16 15 Blood Pressure 113/91 H 104/48 L Pulse Oximetry 99 92 Oxygen Delivery Room Air 10/15/24 04:00 10/15/24 04:00 10/15/24 04:17 Temperature 36.8 C Pulse Rate 114 H 134 H Respiratory Rate 18 Blood Pressure 130/46 L Pulse Oximetry 93 Oxygen Delivery Room Air 10/15/24 06:00 10/15/24 06:22 10/15/24 08:00 Temperature 37.1 C Pulse Rate 127 H 123 H 124 H Respiratory Rate 22 H Blood Pressure 106/69 Pulse Oximetry 97 Oxygen Delivery 10/15/24 08:00 10/15/24 08:00 10/15/24 08:43 Temperature Pulse Rate 112 H 112 H 108 H Respiratory Rate 20 20 Blood Pressure Pulse Oximetry 94 94 Oxygen Delivery Room Air Room Air 10/15/24 09:18 10/15/24 10:00 10/15/24 12:00 Temperature 37.7 C H Pulse Rate 113 H 107 H 120 H Respiratory Rate 24 H Blood Pressure 98/54 L Pulse Oximetry 96 Oxygen Delivery 10/15/24 12:00 10/15/24 12:00 Temperature Pulse Rate 75 75 Respiratory Rate 24 H Blood Pressure Pulse Oximetry 96 Oxygen Delivery Room Air Exam Narrative: Elderly frail chronically ill Patient is comfortable, NAD HEENT: eyes are clear and none icteric LUNGS:CTA HEART: RR S1S2 ABD: BS+, Soft and nontender Lower extremities: no edema SKIN: nonjaundiced, several wounds in the back review photos with the nurse. Neuro: grossly intact. H&P: Results Labs Labs: Short CBC 10/14/24 10/15/24 Range/Units 18:30 04:44 WBC 17.7 H 21.1 H (4.5-10.0) K/mm3 Hgb 10.2 L 9.1 L (12.0-15.0) g/dL Hct 33.5 L 29.2 L (37.0-47.0) % Plt Count 195 182 (150-375) k/mm3 BMP 10/14/24 10/15/24 18:30 04:44 Sodium 138 139 Potassium 5.2 H 5.0 Chloride 110 H 115 H Carbon Dioxide 16 L 14 L BUN 46 H 42 H Creatinine 3.84 H 3.72 H Glucose 101 87 Calcium 8.7 8.1 L Cardiac Enzymes 10/14/24 10/14/24 10/15/24 Range/Units 18:30 21:37 00:46 Troponin I 0.086 H* 0.101 H* 0.126 H* D (0.000-0.034) ng/mL 10/15/24 10/15/24 Range/Units 04:44 08:07 Troponin I 0.162 H* D 0.212 H* D (0.000-0.034) ng/mL Liver Function 10/14/24 10/15/24 Range/Units 18:30 04:44 Total Bilirubin 0.4 0.5 (0.2-1.3) mg/dL AST 23 23 (14-36) U/L ALT 11 13 (6-35) U/L Alkaline Phosphatase 133 H 114 (38-126) U/L Albumin 3.0 L 2.8 L (3.5-5.1) g/dL Urine 10/14/24 Range/Units 20:17 Urine Color Yellow (Yellow) Urine Appearance Cloudy H (Clear) Urine pH 6.0 (5.0-9.0) Ur Specific [place] 1.020 (1.001-1.035) Urine Protein 3+ H (Negative) mg/dL Urine Glucose (UA) Negative (Negative) mg/dL Assessment and Plan Assessment and plan (1) Congestive heart failure: Code(s): I50.9 - Heart failure, unspecified Status: Acute (2) Acute kidney injury: Code(s): N17.9 - Acute kidney failure, unspecified Status: Acute (3) Chronic kidney disease, stage 4 (severe): Code(s): N18.4 - Chronic kidney disease, stage 4 (severe) Status: Acute (4) Hydronephrosis of right kidney: Code(s): N13.30 - Unspecified hydronephrosis Status: Chronic (5) Left ureteral stone: Code(s): N20.1 - Calculus of ureter Status: Acute (6) Ureterolithiasis: Code(s): N20.1 - Calculus of ureter Status: Acute (7) Hypertension: Qualifiers: Hypertension type: essential hypertension Qualified Code(s): I10 - Essential (primary) hypertension Code(s): I10 - Essential (primary) hypertension Status: Acute Plan patient remains confused and unable to provider detail history or ROS, to further evaluate patient had CT scan of the head which showed no acute intracranial hemorrhage or suspicious mass effect. it did show post right frontotemporal lobe infarction, patient also had CT scan of abdomen and chest, concerning for pneumonia, primary hepatocellular carcinoma or metastatic disease and right hydronephrosis with internal ureteral stent in expected position for which patient was seen by urologist, chronic right hydronephrosis with an indwelling stent that appears to be appropriately positioned and appropriately functioning and patient is scheduled for stent change in December. also upon arrival patient had elevated tropes as patient does not have c/o CP, most likely demand ischemia due to stress and pain from the wounds, patient is being treated with heparin and will monitor, discuss with the patient nurse and review patients wound photos, Patient family has decided to place under comfort measure. will monitor and may be admitted under hospice care. Quality VTE Prophylaxis VTE prophylaxis: pharmacologic ordered Hospitalist MIPS Advance Care Plan The patient's Advanced Care plan is not present because:: Hospice care is currently being or has been provided this calendar yr Medication Reconciliation The patient is not eligible for med reconciliation; the patient is in a emergent medical situation where delaying treatment would jeopardize the patients health.: Yes
[2024-10-15] MEDS: LORazepam INJ (*CRX) 2 MG/ML VIAL 0.5 MG IV PUSH (14:46)
[2024-10-15] MEDS: MORPHINE SULFATE (*CRX) 2 MG/ML INJ 0.5 MG IV PUSH (15:12)
--- NOTE | 2024-10-15 18:31 | PC.NURSE ---
This patient, Dasia Hernandez, was received from IMU on 10/15/24 at 1831. Patient/family oriented to unit policies and routines
--- NOTE | 2024-10-15 18:40 | PC.NURSE ---
report called, RN denies questions. Patient transferred to room via bed. This RN called family to make aware with no success of family answering at this time. Unable to leave message.
[2024-10-15] MEDS: MEROPENEM 500 MG in SODIUM CHLORIDE 0.9% IV 100 ML 200 ML IVPB (20:48)
[2024-10-16 00:30] VITALS: O2SAT 95
[2024-10-16 04:00] VITALS: BP 79/29; PULSE 73; RESP 16; TEMP 35.6; O2SAT 98
--- NOTE | 2024-10-16 06:38 | P.CDI_ITS ---
CDI Query Clarification Request BMI: 25.4 Nutritional Diagnostic Statement: Please refer to the comprehensive nutrition assessment for further information. If you agree with diagnosis of Severe protein calorie malnutrition related to loss of appetite as evidenced by intakes <75% needs >1 month; weight loss 28%/1 month; severe muscle wasting and fat loss. Please specify severity if known: * Mild * Moderate * Severe * Other/Unknown <Jocelyne Calvillo RN - Last Filed: 10/16/24 06:39> Provider Comments yes I agree with diagnosis of Severe protein calorie malnutrition related to loss of appetite as evidenced by intakes <75% needs >1 month; weight loss 28%/1 month; severe muscle wasting and fat loss. <Sukhdeep Combs MD - Last Filed: 10/27/24 19:39>
[2024-10-16] MEDS: MORPHINE SULFATE (*CRX) 2 MG/ML INJ 0.5 MG IV PUSH ×2 (08:03→15:10)
[2024-10-16] MEDS: LORazepam INJ (*CRX) 2 MG/ML VIAL 0.5 MG IV PUSH ×2 (08:09→15:10)
[2024-10-16 08:40] VITALS: BP 78/31; PULSE 88; RESP 12; TEMP 36.2; O2SAT 100
--- NOTE | 2024-10-16 13:11 | PCDIET ---
Nutrition note: Pt diet still NPO; plan is to discharge on hospice. Pt was made comfort care. Dietitian team will continue to follow. Please call dietitian team if nutrition intervention is needed.
--- NOTE | 2024-10-19 16:00 | P.DS_ITS ---
DS: Admitting Diagnosis Discharge Date 10/16/24 Admitting Diagnosis Altered Mental Status DS: Discharge Diagnosis Discharge Diagnosis (1) Congestive heart failure: Code(s): I50.9 - Heart failure, unspecified Status: Acute (2) Acute kidney injury: Code(s): N17.9 - Acute kidney failure, unspecified Status: Acute (3) Chronic kidney disease, stage 4 (severe): Code(s): N18.4 - Chronic kidney disease, stage 4 (severe) Status: Acute (4) Hydronephrosis of right kidney: Code(s): N13.30 - Unspecified hydronephrosis Status: Chronic (5) Left ureteral stone: Code(s): N20.1 - Calculus of ureter Status: Acute (6) Ureterolithiasis: Code(s): N20.1 - Calculus of ureter Status: Acute (7) Hypertension: Qualifiers: Hypertension type: essential hypertension Qualified Code(s): I10 - Essential (primary) hypertension Code(s): I10 - Essential (primary) hypertension Status: Acute Plan patient remains confused and unable to provider detail history or ROS, to further evaluate patient had CT scan of the head which showed no acute intracranial hemorrhage or suspicious mass effect. it did show post right frontotemporal lobe infarction, patient also had CT scan of abdomen and chest, concerning for pneumonia, primary hepatocellular carcinoma or metastatic disease and right hydronephrosis with internal ureteral stent in expected position for which patient was seen by urologist, chronic right hydronephrosis with an indwelling stent that appears to be appropriately p ositioned and appropriately functioning and patient is scheduled for stent change in December. also upon arrival patient had elevated tropes as patient does not have c/o CP, most likely demand ischemia due to stress and pain from the wounds, patient is being treated with heparin and will monitor, discuss with the patient nurse and review patients wound photos, Patient family has decided to place under comfort measure. will monitor and may be admitted under hospice care. DS: Summary Hospital Course Hospital Course: patient remains confused and unable to provider detail history or ROS, to further evaluate patient had CT scan of the head which showed no acute intracranial hemorrhage or suspicious mass effect. it did show post right frontotemporal lobe infarction, patient also had CT scan of abdomen and chest, concerning for pneumonia, primary hepatocellular carcinoma or metast atic disease and right hydronephrosis with internal ureteral stent in expected position for which patient was seen by urologist, chronic right hydronephrosis with an indwelling stent that appears to be appropriately positioned and appropriately functioning and patient is scheduled for stent change in December. also upon arrival patient had elevated tropes as patient does not have c/o CP, most likely demand ischemia due to stress and pain from the wounds, patient is being treated with heparin and will monitor, discuss with the patient nurse and review patients wound photos, Patient family has decided to place under comfort measure. will monitor and may be admitted under hospice care. patient is being discharged home where she will be admitted under hospice care Time Spent with Patient Time attestation: Total time spent providing and/or coordinating discharge services: Exam Narrative: Elderly frail chronically ill Patient is comfortable, NAD HEENT: eyes are clear and none icteric LUNGS:CTA HEART: RR S1S2 ABD: BS+, Soft and nontender Lower extremities: no edema SKIN: nonjaundiced, several wounds in the back review photos with the nurse. Neuro: grossly intact. DS: Data Data Completed and Pending Labs on day of discharge: Preliminary micro results at discharge 10/14/24 18:42 Blood Culture - Preliminary Blood 10/14/24 18:34 Blood Culture - Preliminary Blood Discharge Plan Discharge Attending physician on discharge: Edin Granado Consulting providers: Nick Arreola; Richard Camargo; Binu Meade; Benja Azul; Lois Rueda Discharging Clinician: Sukhdeep Combs Patient Disposition: Hospice - Home Activity: as tolerated Diet: as tolerated Discharge Instructions: patient is being discharged home where she will be admitted under hospice care. Patient Instructions: Apixaban (By mouth), Heart Failure (DC) Patient Language: Vietnamese Stand Alone Forms: General Discharge Information Discharge Medications: Continued hydroxyzine HCl 25 mg tablet 25 mg PO TID carvedilol [Coreg] 6.25 mg Tablet 6.25 mg PO Q12HR 30 Days Qty: 60 0RF Rx Instructions: Hold for HR<60 folic acid 1 mg tablet 1 mg PO DAILY ascorbic acid (vitamin C) 500 mg Tablet 500 mg PO DAILY multivitamin Tablet 1 tablet PO DAILY nystatin 100,000 unit/gram Powder 1 applic TOPICAL BID duloxetine 60 mg capsule,delayed release(DR/EC) 60 mg PO DAILY Patient Comments: qam furosemide 40 mg tablet 40 mg PO DAILY pantoprazole 40 mg tablet,delayed release (DR/EC) 40 mg PO HS docusate sodium 100 mg capsule 100 mg PO DAILY dapagliflozin propanediol [Farxiga] 5 mg tablet 5 mg PO DAILY acetaminophen [Acetaminophen Pain Relief] 500 mg tablet 500 mg PO Q6H PRN (Reason: pain) Eliquis 2.5 mg tablet 2.5 mg PO BID baclofen 10 mg tablet 10 mg PO DAILY Date of admission: 10/15/24 00:11 Primary Care Provider: Jonathan,Mary Maldonado Admitting Provider: Edin Granado Attending physician on admission: Sukhdeep Combs Condition: Stable
== END 2024-10-16 17:47 | disposition hospice, home (50) | DRG 689 ==
LOC: ANHED 18:14 → ANHIMU 10-15 02:01 → ANH2MED 10-16 12:38 → ANHIMU 10-17 12:12
PROVIDERS: Nurse Practitioner; Student in an Organized Health Care Education/Training Program; Admitting Provider General Practice; Emergency Provider Emergency Medicine; PCP Nurse Practitioner Family; Visit Provider Family Medicine
DX: N39.0 Urinary tract infection, site not specified (principal); E43 Unspecified severe protein-calorie malnutrition; I24.89 Other forms of acute ischemic heart disease; I13.0 Hypertensive heart and chronic kidney disease with heart failure and stage 1 through stage 4 chronic kidney disease, or unspecified chronic kidney disease; N18.4 Chronic kidney disease, stage 4 (severe); I50.32 Chronic diastolic (congestive) heart failure; N17.9 Acute kidney failure, unspecified; N20.1 Calculus of ureter; N13.30 Unspecified hydronephrosis; Z51.5 Encounter for palliative care; R93.89 Abnormal findings on diagnostic imaging of other specified body structures; R41.82 Altered mental status, unspecified; D63.1 Anemia in chronic kidney disease; E03.9 Hypothyroidism, unspecified; F41.8 Other specified anxiety disorders; G47.33 Obstructive sleep apnea (adult) (pediatric); I35.0 Nonrheumatic aortic (valve) stenosis; J44.9 Chronic obstructive pulmonary disease, unspecified; N31.9 Neuromuscular dysfunction of bladder, unspecified; R33.9 Retention of urine, unspecified; Z74.01 Bed confinement status; Z86.73 Personal history of transient ischemic attack (TIA), and cerebral infarction without residual deficits; Z96.0 Presence of urogenital implants; Z79.01 Long term (current) use of anticoagulants; Z87.891 Personal history of nicotine dependence
CPT/HCPCS: 36415; 70450; 71250; 74176; 80053; 81001; 83605; 83735; 84484; 85025; 85610; 85730; 86140; 87040; 87086; 93005; 96361; 96365; 96375; 99285; A9270; J0616; J1644; J2060; J2185; J2270; J3475; J7030